=== PATIENT | female | born 1965 | race Caucasian/White ===

== ENCOUNTER 2018-06-29 07:00 | Outpatient (RCR) | payer BC, SELFPAY ==
--- NOTE | 2018-06-01 08:18 | HP.PTEVAL ---
Patient's Visit Information ELENA CORONEL is a 53 year old F referred to Physical Therapy by Mahamed Currie with a diagnosis of UNILATERAL KNEE OSTEOARTHRITIS. Date of Evaluation: 06/01/18 Physical Therapist: Rob Hanley PT, - Visit Plan Frequency: 2x /Week Duration: 4 Weeks Plan: ROM/flexablity,PRE'S quads/hams/hip,bike /nustep,modalities pain /edema - Subjective Findings: This 53 y/o female presents to physical therapy with right knee pain from osteorthritis. Patient has had right knee pain for progressively worse for 3 months. Patient intially seen DR Forrest who referred to othropedics. Did x-rays and MRI showed stage 3 DJD . Tried 2 injctions for pain didn't work.Location grossly anterior knee. Patient stateswith walking knee willem. Patient is knee replacemnet. Patient symptoms worse with walking,standing ,unable to squat,kneel,stairs.Denies parathesia/tingling.Symptoms described as throbbing ache. Patient symptoms better on the move ,rest ,ice. Patient symptoms affects QOL and job demands. SOCIAL: engaged. VOCACTION: assemble - Pain Right Knee Pain Intensity (Out of 10): 8 Pain Intensity Range: 10 - Objective POSTURE: knee valgus right. GAIT: normal abhishek. PALAPTION: medial joint line. EDEMA: effusion knee. QUAD CONTraction: Fair. AROM: 0-123 supine knee flexion RIGHT. MMT: quad/knee 4-/5,hip abd/add 4-/5,ankle 4/5 - Special Tests R Knee Luann - Meniscus: Negative R Knee Valgus - MCL: Negative R Knee Varus - LCL: Negative R Knee Patellar Apprehension - PFS: Negative R Knee Patellar Grind - PFS: Negative - Goals Goal 1:: Patient to be Independant with HEP Goal Time Frame: 4-6 Weeks Goal 2:: Patient to decrease pain knee by 50% or greater to improve . Goal Time Frame: 4-6 Weeks Goal 3:: Patient to improve quad/hams strength 4/5 to improve gait. Goal Time Frame: 4-6 Weeks Goal 4:: Patient to improve AROM supine knee flexion 0-130 degrees to improve stairs. Goal Time Frame: 4-6 Weeks Goal 5:: Patient to improve LFES score by 5-10 points or greater to improve function Goal Time Frame: 4-6 Weeks - Rehabilitation Potential Physical Therapy Diagnosis: Patient has right knee DJD with decrease ROM,decrease strength ,gait ,stairs ,pain thus impairs job demnads and ADL'S Rehabilitation Potential: Good - Anticipated Interventions Patient/Client Instruction: Educate patient on: Condition, Plan of Care For the Purpose of:: To decrease pain, To increase ROM, To improve muscle performance and motor function, To increase tolerance to activity/condition/position, To improve performance and independence with ADL's, To improve health of tissue, To decrease soft tissue restriction, To increase flexibility/ROM, To improve ability to perform tasks related to life management Therapeutic Exercise to Include: Strength training, Flexibilty training, Passive ROM, Active ROM Comment: KNEE /HIP For the Purpose of:: To decrease pain, To increase ROM, To improve muscle performance and motor function, To increase tolerance to activity/condition/position, To improve ability of physical actions for home/community/work/leisure, To improve health of tissue, To decrease soft tissue restriction, To increase flexibility/ROM, To improve ability to perform tasks related to life management TENS: Yes IF ES: Yes Cryotherapy (ice pack, ice massage): Yes Thermo therapy (hot pack): Yes Ultrasound (thermal/non thermal): Yes Vasopneumatic device: Yes For the Purpose of:: To decrease pain, To decrease swelling/inflammation, To increase ROM, To improve nutrient delivery to tissue, To increase oxygenation perfusion, To improve health of tissue, To decrease soft tissue restriction Thank you for the opportunity to evaluate your patient. For Medicare and Medicare HMO plans, please review the plan of care and approve it. It will need to be FAXED BACK to us at [phone] for Medicare purposes. For Medicare only, by signing this I certify the plan of care. Please let me know if there are questions or concerns regarding this plan of care. Physician Signature: Date:
--- NOTE | 2018-06-29 07:27 | HP.PTDCSUM ---
HP - PT D/C Summary It has been my pleasure to treat ELENA CORONEL under orders from Mahamed Currie PA-C, for the diagnosis of UNILATERAL KNEE OSTEOARTHRITIS for a total of 6 visit(s). Discharge Date: 06/29/18 Please see the following information for a summary of their discharge status. - Subjective Subjective: Patient had last injections. Patient conts to have pain in knee with function - Pain Right Knee Pain Intensity (Out of 10): 7 - Overall Improvement % Improvement: 25 - Objective Objective/Function: POSTURE: mild knee valgus. GAIT: antalgic with stance. MMT: quads/hams 4-/5. AROM: 0-125 supine knee flexion right. STAIRS: one steps at a time - Goals Goal 1:: Patient to be Independant with HEP Goal Progress: Goal Met Goal 2:: Patient to decrease pain knee by 50% or greater to improve . Goal Progress: Goal Met Goal 3:: Patient to improve quad/hams strength 4/5 to improve gait. Goal Progress: Progressing Goal 4:: Patient to improve AROM supine knee flexion 0-130 degrees to improve stairs. Goal Progress: Progressing Goal 5:: Patient to improve LFES score by 5-10 points or greater to improve function Goal Progress: Goal Met - Plan Plan: D/C - D/C Information Discharge Comments: HEP If there are questions or concerns regarding this patient's physical therapy, please feel free to call me at [phone]. Thank you for the referral of this patient. Sincerely, Rob Hanley, PT, Cert MDT, OCS
== END 2018-06-29 19:00 | disposition home or self-care (01) ==
LOC: PT 07:00
PROVIDERS: Family Provider Family Medicine; PCP Family Medicine; Referring Provider Physician Assistant; Visit Provider Physician Assistant
DX: M17.11 Unilateral primary osteoarthritis, right knee (principal)
CPT/HCPCS: 97014; 97016; 97110; 97162; 97530; G0283

== ENCOUNTER 2019-01-19 08:25 | Emergency (ER) | payer OTHER, BC, SELFPAY ==
[2019-01-19 08:26] VITALS: BP 165/84; PULSE 69; RESP 16; TEMP 36.3; O2SAT 100; BMI 25.7
--- NOTE | 2019-01-19 08:56 | ED.VIS.UPPEX ---
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 She continued to work. She is been icing and using Tylenol but pain has worsened. She denies paresthesias. She is right-hand dominant. Past Medical History - Allergies and Home Meds Allergies/Adverse Reactions: Allergies No Known Allergies Allergy (Verified 11/14/14 04:42) Primary Care Physician: Gerard Forrets [Primary Care Provider] - Prior records reviewed: Yes Past Medical History: - - Reviewed Surgical History: - - Ankle Smoking Status: Current every day smoker Review of Systems General: Denies: Chills, Fever Eyes: Denies: Visual changes - left, Visual changes - right ENT: Denies: Bilateral ear pain Cardiovascular: Denies: Chest pain Respiratory: Denies: Dyspnea, Cough Gastrointestinal: Denies: Abdominal pain Genitourinary: Denies: Dysuria Musculoskeletal: Reports: Arthralgias. Denies: Neck pain, Back pain Neurological: Denies: Headache, Weakness, Parasthesia Endocrine: Denies: Polyuria, Polydipsia Hematologic: Denies: Easy bruising Allergy: Denies: Uticaria Physical Exam Vital Signs/Narrative: Vital Signs Temp Pulse Resp BP Pulse Ox 01/19/19 08:26 97.4 F L 69 16 165/84 H 100 Inital Vital Signs reviewed: Yes Left Shoulder: - - Focal tenderness to palpation along the anterior left humeral head. This is near the site of the biceps tendon insertion. She does have good range of motion, but pain with movement. She has strong distal pulses and normal sensation.. Negative for: Abrasion, Contusion, Deformity Left Elbow: Negative for: Abrasion, Contusion Left Forearm: Negative for: Abrasion, Contusion Left Wrist: Negative for: Abrasion, Contusion General: Well nourished Head: Normocephalic ENT: No Trauma Neck: Nontender Cardiovascular: Regular rate, Regular rhythm Respiratory: No distress, CTA bilaterally Abdomen: Soft, Nontender Skin: Normal color Neurological: Alert, Oriented x3 Psychological: Normal affect Diagnostic/Tx/Re-eval Impressions Shoulder X-Ray 01/19/19 09:04 IMPRESSION: No demonstrated acute fracture or dislocation. Electronically Signed: Ajit Bell MD at 9:21 EDT Tel , Service support , 01/19/19 09:04 Shoulder min 2 Views [RAD] Stat - Medical Decision Making X-rays are unremarkable. I discussed with the patient that I am concerned about tendinitis with her repeat repetitive motion. She will be started on naproxen with a short steroid burst. She will follow-up with [facility]. Disposition: Home ED Disposition - Plan for ED Patient: Disposition: Home or Assisted Living Instructions: Shoulder Sprain Prescriptions: Prednisone [Deltasone] 40 mg PO DAILY #10 tablet Naproxen [Naprosyn] 500 mg PO BID PRN PRN #20 tablet PRN Reason: Pain [facility]errals: [facility]YSICIANS] - 3-5 Days
--- NOTE | 2019-01-19 09:04 | RAD_ITS ---
STUDY: X-RAY - LEFT SHOULDER REASON FOR EXAM: Female, 53 years old. Injury. TECHNIQUE: 4 view(s) of the shoulder. COMPARISON: None. FINDINGS: Normal glenohumeral articulation. Normal acromioclavicular joint. Normal acromion. There is a small sclerotic lesion in the left humeral head probably due to bone island. The soft tissue structures are unremarkable. Normal visualized pulmonary apex. RAD/Shoulder min 2 Views IMPRESSION: No demonstrated acute fracture or dislocation. Electronically Signed: Ajit Bell MD at 9:21 EDT Tel , Service support ,
== END 2019-01-19 10:22 | disposition home or self-care (01) ==
PROVIDERS: Emergency Provider Emergency Medicine; Family Provider Family Medicine; PCP Family Medicine
DX: S43.402A Unspecified sprain of left shoulder joint, initial encounter (principal); F17.200 Nicotine dependence, unspecified, uncomplicated; X50.0XXA Overexertion from strenuous movement or load, initial encounter; Y93.89 Activity, other specified; Y92.89 Other specified places as the place of occurrence of the external cause; Y99.0 Civilian activity done for income or pay
CPT/HCPCS: 73030; 99282

== ENCOUNTER → 2023-05-19 | Outpatient (CLI) | payer OTHER, SELFPAY ==
--- NOTE | 2023-05-19 | IMM_PTH ---
PATIENT: ELENA GUZMAN LOC: LAB U#:[id number] AGE/SX: 58/F ROOM: RE05/19/[address]: Dr. Benton Royal MD : 1965 BED: DIS: 05/19/2023 SPEC #: [id number] RECD: 05/22/23 15:44 STATUS: [place] REQ #: [id number] PANCHO: 05/19/23 00:[address]: Benton Royal DEPT: IMMUNOHISTOCHEMISTRY RECD BY: Beryl Mas ENTERED: 05/22/23 15:46 SP TYPE: IMMUNO OTHR DR: Dr. Gerard Forrest MD Tissues: Neck, NOS Procedures: Synapto (add) NAPSIN A (add) CD45 (add) CD56 (add) CEA (add) CHROMO (add) CK20 (add) CK7 (add) FILOMENA (add) KI-67 (add) MAMM (add) P53 (add) TX (add) TTF1 (add) GATA3 (add) P40 (add) PAX8 (add) ER (initial) NSE (add) S-100 (add) PHYSICIAN & INSTITUTION [place] [id number] SPECIMEN INFORMATION: Tissue Source: Right neck mass Clinical Info: Right neck mass Specimen Number: [id number] CPT code: 46355, 73371 x19 METHODOLOGY: Deparaffinized sections of prefer/formalin-fixed tissue or PAP/DQ stained slides are incubated with monoclonal/polyclonal antibodies/oligonucleotide probes. Localization is made via biotin free immunoperoxidase method. Appropriate controls are performed and reacted as expected. Results on target cell population are indicated in the following table: RESULTS: ANTIBODY / CLONE RESULT ER (6F11) negative TX (1E2) negative Mammaglobin (31A5) negative GATA3 (L50-823) negative CK7 (OV-TL12/30) positive CK20 (KS20.8) negative CD45 (RP2/18) negative S-100 (4C4.9) negative PAX8 (MRQ50) negative CD56 (123C3.D5) positive Chromo (LK2H10) positive Synapto (polyclonal) positive NSE Neuron Specific Enolase positive TTF-1 (8G7G3/1) positive Napsin A (Rabbit Polyclonal) negative P40 (BC28) negative FILOMENA (E29) positive CEA (11-7/TF-3HB-1) negative P53 (DO-7) negative, null pattern Ki-67 (30-9) positive, 60% These tests were developed and their performance characteristics determined by [facility]. They may not have been cleared or approved by the U.S. Food and Drug Administration. The FDA has determined that such clearance or approval is not necessary. The above immunohistochemical/dualISH markers are ordered and reviewed by the Pathologist. INTERPRETATION: Right neck mass, fine needle aspiration: Metastatic small cell carcinoma. AM:bri 05/23/2023
--- NOTE | 2023-05-19 | ASPOS_PTH ---
PATIENT: ELENA GUZMAN LOC: LAB U#:[id number] AGE/SX: 58/F ROOM: RE05/19/[address]: Dr. Benton Royal MD : 1965 BED: DIS: 05/19/2023 SPEC #: [id number] RECD: 05/19/23 10:50 STATUS: [place] RERohit #: [id number] PANCHO: 05/19/23 00:[address]: Benton Royal DEPT: CYTOLOGY RECD BY: Junaid Nuñez ENTERED: 05/19/23 10:51 SP TYPE: ASP HERE OTHR DR: Dr. Gerard Forrest MD Tissues: Neck, NOS Procedures: Surgery Specimen Level IV Cytology Other Fine Needle Asp on Site HEADER OPERATION: Fine needle aspiration right neck mass PRE-OP DIAGNOSIS: Right neck mass TISSUE SUBMITTED: Right neck mass DIAGNOSIS CYTOLOGY Fine needle aspiration, right neck mass (smears and cell block): Positive for malignant cells. Note: Immunohistochemistry([id number]) is consistent with a metastatic small cell carcinoma. See comment. AM:bri 05/22/2023 COMMENT A fine needle aspiration was performed and the specimen is evaluated at the time of FNA by Dr. Fuchs. Immediate Evaluation = Positive for malignant cells. Small blue cell neoplasm, favor small cell carcinoma. Flow cytometry analysis from [facility] was cancelled. The full report is viewable in EMR. CYTOLOGY STUDY Slides are reviewed. CYTOLOGY GROSS Received is 0.2 ml of reddish fluid labeled with the patient's name, and designated right neck mass. Four imprints and four paps are made from the submitted fluid and the rest is added to CytoLyt for cell block preparation. Submitted for cytology study. / AM:bri 05/19/2023 TC:0 CPT: 23214, 97255, 67162, 61929
== END | disposition home or self-care (01) ==
LOC: LAB 09:26
PROVIDERS: PCP Family Medicine; Referring Provider Otolaryngology; Visit Provider Otolaryngology
DX: C44.49 Other specified malignant neoplasm of skin of scalp and neck (principal)
CPT/HCPCS: 10021; 88161; 88305; 88341; 88342

== ENCOUNTER 2023-08-18 08:52 | Outpatient (CLI) | payer OTHER, SELFPAY ==
[2023-08-18 09:13] VITALS: BP 107/53; PULSE 92; RESP 16; TEMP 36.4; O2SAT 100; BMI 29.0
[2023-08-18] MEDS: 0.9% Normal Saline (500mL Bag) 500 ML 15 ML IV (09:45)
[2023-08-18] MEDS: 0.9% NaCl Peripheral Flush Adult/Peds IV (09:46)
[2023-08-18 10:08] VITALS: BP 90/58; PULSE 88; RESP 16; TEMP 36.4; O2SAT 100
[2023-08-18 11:08] VITALS: BP 115/52; PULSE 92; RESP 16; TEMP 36.3
[2023-08-18 12:07] VITALS: BP 107/60; PULSE 88; RESP 16; TEMP 36.5; O2SAT 100
== END 2023-08-18 08:53 | disposition home or self-care (01) ==
LOC: MEDOUTP 08:56
PROVIDERS: PCP Family Medicine; Referring Provider Internal Medicine Hematology & Oncology; Visit Provider Internal Medicine Hematology & Oncology
DX: D64.81 Anemia due to antineoplastic chemotherapy (principal)
CPT/HCPCS: 36430; 86850; 86900; 86901; 86920; 86922; J7040; P9016; A4216

== ENCOUNTER 2023-12-13 17:10 | Emergency (ER) | payer OTHER, SELFPAY ==
[2023-12-13 17:11] VITALS: BP 158/84; PULSE 98; RESP 16; TEMP 36.9; O2SAT 95; BMI 31.5
--- NOTE | 2023-12-13 17:28 | EX.ED.DYSGE1 ---
HPI History of Present Illness Chief Complaint: Chest Other Onset/Context/Timing Onset: Days (2) Context: Gradual Onset Timing: Continuous Quality: Sharp Location: Right chest Worsened by: Deep breathing Relieved by: Nothing Narrative Narrative: Patient presents with right-sided chest pain that has been constant for the past 2 days. Patient was referred to the emergency department by her oncologist for possible pulmonary embolism. Patient has a history of small cell lung cancer and lymphoma. Patient states her pain is sharp. Patient states it is worse with deep breathing. Patient denies any fevers or chills. Patient denies any cough. Patient admits to some mild shortness of breath. Patient denies any nausea or vomiting. [facility] Medical History (Updated 12/13/23 @ 20:[address] Greg Torres DO) COPD (chronic obstructive pulmonary disease) Lymphoma Small cell lung cancer Home Medications ?Medication ?Instructions ?Recorded ?Last Taken ?Type cyclobenzaprine 10 mg tablet 10 mg PO TID PRN Muscle Spasm ##20 11/14/14 Unknown Rx dexamethasone 4 mg tablet 4 mg PO DAILY 08/18/23 Unknown History diphenhydramine HCl 12.5 mg/5 mL 12.5 mg PO TID 08/18/23 Unknown History oral liquid (Allergy (diphenhydramine)) olanzapine 5 mg tablet 5 mg PO DAILY 08/18/23 Unknown History ondansetron 8 mg disintegrating 8 mg PO Q8H 08/18/23 Unknown History tablet prochlorperazine maleate 10 mg 10 mg PO BID PRN nausea and 08/18/23 Unknown History tablet (Compazine) vomiting sucralfate 100 mg/mL oral 10 ml PO Q6H 08/18/23 Unknown History suspension (Carafate) azithromycin 250 mg tablet 250 mg PO DAILY #4 TABLETS 12/13/23 Unknown Rx Allergy/AdvReac Type Severity Reaction Status Date / Time No Known Allergies Allergy Verified 12/13/23 17:12 Surgical History Hx of neck surgery History of ankle surgery History of hysterectomy History of herniorrhaphy Hx of right knee surgery History of section Social History (Updated 12/13/23 @ 17:[address] Greg Torres DO) Smoking Status: Former smoker ROS ROS ED Constitutional Constitutional ED: Denies chills or fever(s) Eyes Eyes: Denies blurry vision or change in vision ENT ENT ED: Denies rhinorrhea or sore throat Cardiovascular Cardiovascular: Reports chest pain; Denies palpitations Respiratory/Chest Respiratory/Chest: Reports dyspnea; Denies cough Gastrointestinal Gastrointestinal: Denies nausea or vomiting Genitourinary Genitourinary ED: Denies dysuria or hematuria Musculoskeletal Musculoskeletal: Denies back pain or neck pain Integumentary Reports rash; Denies abscess Neurologic Neurologic: Denies headache(s) or weakness Allergic/Immunologic Allergic/Immunologic ED: Denies mouth swelling or urticaria EXAM Physical Exam Const Vital Signs: 12/13/23 17:11 12/13/23 17:35 12/13/23 19:10 Temperature 98.4 F Temperature Source Temporal Pulse Rate 98 74 Respiratory Rate 16 18 Respiratory Effort Normal Respiratory Pattern Normal Blood Pressure 158/84 H 129/77 H Blood Pressure Mean 108 94 Pulse Ox 95 96 Oxygen Delivery Method Room Air Room Air Positive well nourished and well developed General Appearance ED: well developed and NAD HEENT Reports moist mucous membranes Neck supple and no JVD Resp normal respiratory effort and clear to auscultation bilaterally Cardio regular rate and regular rhythm GI non-tender and non-distended Palpation: soft Neuro oriented x3, CN's II-XII intact bilaterally and no sensory deficits noted Sensorium / Orientation: alert Motor Exam: strength 5/5 throughout Psych mental status grossly normal MDM MDM MDM Narrative Medical decision making narrative: Differential diagnosis includes pulmonary embolism, pneumothorax, musculoskeletal pain, and pneumonia. CBC will be obtained to assess for leukocytosis and anemia. Basic metabolic profile will be obtained to assess for electrolyte abnormality and renal function. CTA of the chest will be obtained to assess for pulmonary embolism. Lab Data Attestation: I reviewed the patient's lab results. Lab results narrative: CBC was reviewed. There is a slight anemia with a hemoglobin of 11.1 and hematocrit of 33.7. Basic metabolic profile was reviewed. BUN was slightly elevated at 28 and creatinine was slightly elevated at 1.25. Labs: Laboratory Results - last 24 hr 12/13/23 17:45 WBC 5.3 RBC 3.61 L Hgb 11.1 L Hct 33.7 L MCV 93.4 MCH 30.7 MCHC 32.9 RDW Std Deviation 38.4 RDW Coeff of Robert 11.4 L Plt Count 231 MPV 9.4 Immature Gran % (Auto) 0.200 Neut % (Auto) 68.2 Lymph % (Auto) 17.0 L Charlton % (Auto) 9.7 Eos % (Auto) 4.0 Baso % (Auto) 0.9 Absolute Neuts (auto) 3.6 Absolute Lymphs (auto) 0.90 Nucleated RBC % 0 Sodium 140 Potassium 4.1 Chloride 109 H Carbon Dioxide 24.0 Anion Gap 7 BUN 28 H Creatinine 1.25 H Estim Creat Clear Calc 49.36 Est GFR (MDRD) Af Amer 56 L Est GFR (MDRD) Non-Af 47 L BUN/Creatinine Ratio 22.4 H Glucose 102 Calcium 9.5 Radiography CTA PE Study: No Evidence of PE and No Evidence of Dissection Diagnostic Testing: Clinical Impression(s) from Imaging Studies Chest CTA 12/13/23 17:36 IMPRESSION: CTA chest examination, without a demonstrated pulmonary embolism or arterial dissection. Emphysema with right upper lung interstitial infiltrate or edema. Electronically Signed: Nabor Khanna MD at 18:42 EDT , CTA of the chest was obtained. There is no pulmonary embolism or aortic dissection. There is a questionable right upper lobe infiltrate or edema. This was interpreted by the radiologist and was also independently reviewed by myself. Treatment and Re-Evaluation :: Patient was advised of her findings. Because of the CTA findings of a questionable infiltrate, patient was given a dose of Zithromax here. Patient was given a prescription for Zithromax. Patient was instructed to take Tylenol or ibuprofen as needed for pain. Patient was instructed to follow-up with her primary care physician in 5 to 7 days. Patient understood and was agreeable with the plan. All questions were answered. Discharge Plan Triage Chief Complaint: Chest Other ED Provider: Greg Torres Dx/Rx/DC Orders Clinical Impression: Right-sided chest pain, Small cell lung cancer, COPD (chronic obstructive pulmonary disease), Pneumonia Instructions: ED Chest Pain, Uncertain Cause, ED Pneumonia (Adult) Prescriptions: New azithromycin 250 mg tablet 250 mg PO DAILY Qty: 4 0RF No Action cyclobenzaprine 10 MG tablet 10 mg PO TID PRN (Reason: Muscle Spasm) Qty: 20 0RF olanzapine 5 mg tablet 5 mg PO DAILY diphenhydramine HCl [Allergy (diphenhydramine)] 12.5 mg/5 mL liquid 12.5 mg PO TID sucralfate [Carafate] 100 mg/mL suspension 10 ml PO Q6H dexamethasone 4 mg tablet 4 mg PO DAILY prochlorperazine maleate [Compazine] 10 mg tablet 10 mg PO BID PRN (Reason: nausea and vomiting) ondansetron 8 mg tablet,disintegrating 8 mg PO Q8H Rx Instructions: 1st dose 1-2 hr before radiation Primary Care Provider: Gerard Forrest Referrals: Saul East DO [Med Staff - Active Staff] - 5-7 Days Gerard Forrest MD [Primary Care Provider] - 5-7 Days Print Language: Bulgarian Disposition Disposition: Home, Self Care
--- NOTE | 2023-12-13 17:36 | CT_ITS ---
STUDY: CTA CHEST REASON FOR EXAM: Female, 58 years old. Right chest pain RADIATION DOSAGE (If Supplied By Facility): CTDIvol = ( 10.26 ) mGy, DLP = ( 385.06 ) mGycm TECHNIQUE: The examination was performed with the intravenous administration of IV 100mL Isovue-370. Post-processing of the angiographic images was performed, with multiplanar reformation and 3D reconstruction. Individualized dose optimization techniques were used for this CT. COMPARISON: Chest x-ray October 16, 2022 FINDINGS: Normal enhancement of the main pulmonary artery and right and left pulmonary arteries. Normal enhancement of the bilateral peripheral pulmonary arteries. There is no demonstrated pulmonary embolism. There is atherosclerotic calcification of the aortic arch with tortuosity. There is no demonstrated aortic dissection. Normal heart and pericardium. Normal mediastinum. Normal hilar regions. Normal visualized trachea and bronchi. The lungs are well expanded. There is emphysema of the lungs. There are right upper lung interstitial septal and groundglass opacities Normal pleura. Normal chest wall structures. There are degenerative changes of thoracic spine. Normal visualized upper abdomen. CT/CTA Chest W/WO Contrast IMPRESSION: CTA chest examination, without a demonstrated pulmonary embolism or arterial dissection. Emphysema with right upper lung interstitial infiltrate or edema. Electronically Signed: Nabor Khanna MD at 18:42 EDT ,
[2023-12-13 17:58] LABS: Absolute Neutrophil Count 3.6 X10^3/uL (2.0-7.7); Basophil# 0.05 X10^3/uL; Basophil% 0.9 % (0-1); Eosinophil# 0.21 X10^3/uL; Hematocrit 33.7 % (37-47); Hemoglobin 11.1 g/dL (12.0-15.0); Mean Corp Hgb Conc 32.9 g/dL (32-36); Mean Corpuscular Hgb 30.7 pg (27.0-32.0); Mean Corpuscular Volume 93.4 fL (81-99); Mean Platelet Vol. 9.4 fl (6.2-12.0); Monocyte# 0.51 X10^3/uL; Monocyte% 9.7 % (0-10); NRBC Flagged by Analyzer 0 % (0-5); Neutrophil % 68.2 % (47-70); Platelet Count 231 K/mm3 (150-450); RBC Distribution Width CV 11.4 % (11.6-14.6); RBC Distribution Width SD 38.4 fl (35.1-43.9); Red Blood Count 3.61 M/mm3 (4.2-5.4); White Blood Count 5.3 K/mm3 (4.4-11.0)
[2023-12-13 18:11] LABS: Anion Gap 7 (5-15); BUN 28 mg/dL (7-18); BUN/Creat Ratio 22.4 RATIO (10-20); Calcium,Total 9.5 mg/dL (8.5-10.1); Chloride 109 mmol/L (98-107); Creatinine, Serum 1.25 mg/dL (0.55-1.02); EST Glomerular Filtration Rate 47 mL/min (>60); Est Glom Filt Rate - Afr Amer 56 mL/min (>60); Estimated Creatinine Clearance 49.36 ml/min; Glucose 102 mg/dL (74-106); Potassium 4.1 mmol/L (3.5-5.1); Sodium Level 140 mmol/L (136-145)
[2023-12-13 19:10] VITALS: BP 129/77; PULSE 74; RESP 18; O2SAT 96
[2023-12-13 20:37] VITALS: BP 150/87; PULSE 72; RESP 12; TEMP 36.8; O2SAT 95
[2023-12-13] MEDS: Azithromycin 250 MG Tablet 500 MG PO (20:42)
== END 2023-12-13 20:43 | disposition home or self-care (01) ==
PROVIDERS: Emergency Provider Emergency Medicine; PCP Family Medicine; Visit Provider Emergency Medicine
DX: R07.89 Other chest pain (principal); C34.90 Malignant neoplasm of unspecified part of unspecified bronchus or lung; J44.9 Chronic obstructive pulmonary disease, unspecified; J18.9 Pneumonia, unspecified organism; Z87.891 Personal history of nicotine dependence; Z85.72 Personal history of non-Hodgkin lymphomas
CPT/HCPCS: 71275; 80048; 85025; 99283; Q9967

== ENCOUNTER 2024-03-05 17:50 | Emergency (ER) | payer OTHER, SELFPAY ==
[2024-03-05] VITALS (9 sets, daily range): BP systolic 83–129; BP diastolic 56–76; PULSE 64–118; RESP 12–20; TEMP 36.7; O2SAT 95–99; BMI 30.4
--- NOTE | 2024-03-05 18:04 | EX.ED.DYSGE1 ---
HPI History of Present Illness Chief Complaint: Hypotension PFSH PFS Medical History (Updated 03/05/24 @ 22:[address] Jamal Cox, DO) COPD (chronic obstructive pulmonary disease) Lymphoma Small cell lung cancer Home Medications ?Medication ?Instructions ?Recorded ?Last Taken ?Type olanzapine 5 mg tablet 5 mg PO DAILY 08/18/23 Unknown History ondansetron 8 mg disintegrating 8 mg PO Q8H 08/18/23 Unknown History tablet prochlorperazine maleate 10 mg 10 mg PO BID PRN nausea and 08/18/23 Unknown History tablet (Compazine) vomiting cholecalciferol (vitamin D3) 50 50 mcg PO DAILY 03/05/24 Unknown History mcg (2,000 unit) capsule (Vitamin D3) metoprolol succinate 25 mg 25 mg PO DAILY 03/05/24 Unknown History tablet,extended release 24 hr nitrofurantoin macrocrystal 100 mg 100 mg PO BID 7 days #14 caps 03/05/24 Unknown Rx capsule ondansetron 4 mg disintegrating 4 mg PO Q8H PRN PRN Nausea #10 tabs 03/05/24 Unknown Rx tablet Allergy/AdvReac Type Severity Reaction Status Date / Time No Known Allergies Allergy Verified 12/13/23 17:12 Family History (Updated 03/05/24 @ 18:26 by Liz Reyes) Father Myocardial infarction Surgical History Hx of neck surgery History of ankle surgery History of hysterectomy History of herniorrhaphy Hx of right knee surgery History of section Social History (Updated 12/13/23 @ 17:[address] Greg Torres DO) Smoking Status: Former smoker EXAM Physical Exam Const Vital Signs: 03/05/24 17:51 03/05/24 18:13 03/05/24 18:13 Temperature 98.0 F Temperature Source Temporal Pulse Rate 118 H Respiratory Rate 16 16 Respiratory Effort Respiratory Pattern Blood Pressure 83/61 L Blood Pressure Mean 68 Pulse Ox 99 96 Oxygen Delivery Method Room Air Room Air Room Air 03/05/24 18:13 03/05/24 18:51 03/05/24 19:00 Temperature Temperature Source Pulse Rate 71 72 Respiratory Rate 18 18 Respiratory Effort Normal Non-Labored Respiratory Pattern Normal Blood Pressure 103/56 L 106/56 L Blood Pressure Mean 71 72 Pulse Ox 99 99 Oxygen Delivery Method Room Air 03/05/24 20:00 03/05/24 21:00 03/05/24 22:00 Temperature Temperature Source Pulse Rate 69 77 71 Respiratory Rate 17 18 20 H Respiratory Effort Respiratory Pattern Blood Pressure 129/71 H 124/62 H 126/71 H Blood Pressure Mean 90 82 89 Pulse Ox 98 98 95 Oxygen Delivery Method Room Air 03/05/24 22:58 03/05/24 23:00 Temperature 98.1 F Temperature Source Pulse Rate 64 73 Respiratory Rate 12 12 Respiratory Effort Respiratory Pattern Blood Pressure 126/76 H 126/76 H Blood Pressure Mean 92 92 Pulse Ox 98 98 Oxygen Delivery Method Room Air MDM MDM MDM Narrative Medical decision making narrative: HISTORY OF PRESENT ILLNESS: 59-year-old female with hypotension back pain. She has chronic back pain for last 3 days but which is worse today. This is left-sided. She notes no falls. No trauma. Denies bowel or bladder incontinence. Denies focal lower extremity weakness. Denies history of recent surgery or bladder manipulation. Patient denies any saddle anesthesia, urinary retention, bowel or bladder incontinence, lower extremity weakness, fever or IV drug use, no recent spinal manipulation or surgery, no recent urinary catheterization. She endorses chronic shortness of breath. REVIEW OF SYSTEMS: Pertinent positives: Back pain, low blood pressure, dyspnea Pertinent negatives: Chest pain, headache, bleeding diathesis PHYSICAL EXAM: Nursing triage notes reviewed, Vital signs reviewed Constitutional: please see mdm HENT: MMM Eyes: Pupils equal round and reactive to light, Extraocular muscles intact Neck: No stridor, no JVD, full neck ROM Lungs: Clear to auscultation, No wheezing or rales. No increased work of breathing, no conversational dyspnea, no accessory muscle use, no nasal flaring. No respiratory distress noted Heart: Regular rate and rhythm, No murmurs, No rubs and No gallops, 2+ distal pulses (radial, femoral, posterior tibial) in all extremities Abdomen: Soft, there is no tenderness, rigidity, rebound or guarding, no obvious peritoneal signs, no palpable pulsatile abdominal masses, no auscultated abdominal bruit : No CVAT Extremities: No edema Neuro: No focal neurological deficits, cranial nerves II through XII intact, 5/5 strength in all extremities. Intact sensation to light touch in all extremities, 2+ reflexes bilateral patella tendons. Normal gait. No ataxia. Skin: No rash or lesions noted MEDICAL DECISION MAKING: Chief Complaint: Hypotension and dizziness External records reviewed: Imaging reviewed: Recent [facility] abdomen pelvis. CT scan of the chest with contrast shows no PE or dissection emesis from December 2023 Factors affecting care: Small cell lung cancer, lymphoma, COPD Social determinants of health: none History obtained from others: Family Consults: none MDM Narrative: Patient was initially hypotensive with blood pressure 80/61 and tachycardic with a heart rate of 118, afebrile and nontoxic-appearing. No focal findings suggestive of infection. No focal cardiopulmonary abnormalities on initial exam. I considered the following differential diagnosis: Distributive shock, obstructive shock, hemorrhagic shock, neurogenic shock ALL IMAGES (IF OBTAINED) HAVE BEEN PERSONALLY REVIEWED AND INTERPRETED BY MYSELF. EKG with normal sinus rhythm, normal axis, normal intervals, no STEMI Lactate is wnl indicating no end-organ hypoperfusion and/or hypoxia. CBC with no leukocytosis, noted mild anemia, no thrombocytopenia BMP without evidence of significant electrolyte abnormalities, no anion gap, no acute kidney injury. High-sensitivity troponin is negative, no evidence of myocardial ischemia BNP within normal limits Urinalysis shows evidence of urinary inflammation. Will send for culture (given cancer and relative immunocompromise state). Will start the patient prophylactic antibiotic I have personally reviewed the patient's chest x-ray. Chest x-ray is unremarkable for pulmonary edema, pneumothorax, pneumonia or focal cardiopulmonary abnormality. CT of the chest shows no evidence of PE or pneumonia CT scan abdomen pelvis no evidence of abdominal extravasation of AAA, shows evidence of cystitis CT scan lumbar spine shows no evidence of bony abnormality, bony metastasis On reevaluation the patient's blood pressure improved 124/62, heart rate improved to 77. Symptomatically she felt better. The synthesis the patient's history, physical exam, labs images suggest Likely dehydration with accompanying UTI. I sent the urine for culture. Will have the patient follow with her culture callback process. There is no evidence of urosepsis as patient did not have an elevated white blood cell count, lactate is negative and symptoms and vital signs are manage improved with IV fluids. Encourage increase IV fluid intake, gave nitrofurantoin for empiric UTI coverage. Give strict return precautions and follow-up instructions. The patient and/or family, caregivers express understanding. The patient and/or family, caregivers agrees with the plan. Shared decision making: I will have a discussion with the patient and or visitors regarding risk/benefits of further testing or admission. They will be made aware of of the risk/benefits inherent in this decision they will be given the opportunity to voice understanding. Total critical care time today provided was at least 0 review and charting minutes. This excludes separately billable procedures. Critical care time (if documented) is secondary to the patient having high probability of clinically significant/life threatening deterioration in the patient's condition which required my urgent intervention. Impression: 1. Hypotension (resolved) 2. History of small cell lung cancer 3. Dehydration Dispo: Discharge home This note was generated with [employer] dictation software. It may contain incorrect words, spelling, and punctuation that were not noted in review of the chart prior to signing. Lab Data Labs: Laboratory Results - last 24 hr 03/05/24 03/05/24 03/05/24 18:22 19:40 20:02 WBC 6.2 RBC 3.48 L Hgb 10.5 L Hct 32.5 L MCV 93.4 MCH 30.2 MCHC 32.3 RDW Std Deviation 44.3 H RDW Coeff of Robert 13.0 Plt Count 252 MPV 10.4 Sodium 139 Potassium 4.1 Chloride 108 H Carbon Dioxide 23.0 Anion Gap 8 BUN 26 H Creatinine 1.45 H Estim Creat Clear Calc 41.33 Est GFR (MDRD) Af Amer 48 L Est GFR (MDRD) Non-Af 39 L BUN/Creatinine Ratio 17.9 Glucose 101 Lactic Acid 0.3 L Calcium 9.5 Total Bilirubin 0.20 AST 19 ALT 23 Alkaline Phosphatase 62 Troponin I High Sens 16 B-Natriuretic Peptide 35.9 Total Protein 7.6 Albumin 3.9 Globulin 3.7 Albumin/Globulin Ratio 1.1 Urine Color Yellow Urine Clarity Clear Urine pH 6.0 Ur Specific [place] 1.020 Urine Protein Negative Urine Glucose (UA) Normal Urine Ketones Negative Urine Occult Blood 25 H Urine Nitrite Negative Urine Bilirubin Negative Urine Urobilinogen Normal Ur Leukocyte Esterase 100 H Urine RBC 0-5 SEEN Urine WBC 0-5 SEEN Ur Squamous Epith Cells 0-5 SEEN Ur Renal Epithelial Cell 0-5 SEEN Urine Bacteria 2+ Hyaline Casts 0-5 SEEN Urine Mucus 0 SEEN Radiography Diagnostic Testing: Clinical Impression(s) from Imaging Studies Abdomen/Pelvis CT 03/05/24 19:17 IMPRESSION: Findings suspicious for cystitis. Correlate with urinalysis. Electronically Signed: Benton Laura MD at 21:23 EDT , Chest CTA 03/05/24 19:17 IMPRESSION: No acute abnormalities in the chest. Specifically, no evidence of acute pulmonary emboli to the segmental level. Electronically Signed: Benton Laura MD at 21:21 EDT , Lumbar Spine CT 03/05/24 19:17 IMPRESSION: No evidence of acute lumbar spinal fracture or spondylolisthesis. Mild multilevel degenerative disc disease and spondylosis. Electronically Signed: Benton Laura MD at 21:26 EDT , Chest X-Ray 03/05/24 19:25 IMPRESSION: No acute radiographic abnormalities. Electronically Signed: Benton Laura MD at 20:41 EDT Reading Location ID and State: [email or web address] / [place] Tel , Service support , Discharge Plan Triage Chief Complaint: Hypotension Other Complaint: Back ED Provider: Jamal Cox Dx/Rx/DC Orders Clinical Impression: Acute dehydration Instructions: Dehydration Prescriptions: New nitrofurantoin macrocrystal 100 mg capsule 100 mg PO BID 7 Days Qty: 14 0RF Rx Instructions: must administer with a meal/food ondansetron 4 mg tablet,disintegrating 4 mg PO Q8H PRN PRN (Reason: Nausea) Qty: 10 0RF No Action olanzapine 5 mg tablet 5 mg PO DAILY Patient Comments: hasn't taken since tx prochlorperazine maleate [Compazine] 10 mg tablet 10 mg PO BID PRN (Reason: nausea and vomiting) Patient Comments: hasn't taken since tx ondansetron 8 mg tablet,disintegrating 8 mg PO Q8H Patient Comments: hasn't taken since tx Rx Instructions: 1st dose 1-2 hr before radiation metoprolol succinate 25 mg tablet extended release 24 hr 25 mg PO DAILY cholecalciferol (vitamin D3) [Vitamin D3] 50 mcg (2,000 unit) capsule 50 mcg PO DAILY Primary Care Provider: Gerard Forrest Referrals: Gerard Forrest MD [Primary Care Provider] - Activity Restrictions/Additional Instructions: Thank you for trusting us with your care today! Your labs images were reassuring overall. Your vital sign abnormalities improved after IV fluids were suggest dehydration. I wrote you prescription for an antibiotic to treat presumed UTI given signs of urinary inflammation as well as signs of inflammation in your CT scan. Please take Zofran as needed for nausea and vomiting at home. Please take Tylenol (2 pills, 650 mg), ibuprofen (2 pills, 400 mg) every 6 hours as needed for pain and fever control. Please return to the emergency department if your symptoms change or worsen. Please follow with your primary care physician for further outpatient evaluation and management. Print Language: Czech Disposition Disposition: Home, Self Care Discharge Date/Time: 03/05/24 23:05
[2024-03-05] MEDS: 0.9% Normal Saline (1000mL) 1,000 ML 50 ML IV (18:25)
--- NOTE | 2024-03-05 19:16 | EKG12_ITS ---
Test Reason : DYSRHYTHMIA Blood Pressure : / mmHG Vent. Rate : 061 BPM Atrial Rate : 061 BPM P-R Int : 164 ms QRS Dur : 072 ms QT Int : 396 ms P-R-T Axes : 069 069 048 degrees QTc Int : 398 ms Normal sinus rhythm Normal ECG Confirmed by LYNN WONG, RIC ([id number]), news video editor POLLY THRASHER ([id number]) on 03/07/2024 1:45:35 PM Referred By: Confirmed By:RIC BAILEY MD
--- NOTE | 2024-03-05 19:17 | CT_ITS ---
INDICATION: back pain EXAMINATION: CT LUMBAR SPINE - CT Spine Lumbar W/O Contrast Injection TECHNIQUE: Helically acquired images were obtained of the lumbar spine. 2D reformats were reviewed. A radiation dose optimization technique was used for this scan. IV Contrast dosage and agent: None. COMPARISON: None. FINDINGS: VERTEBRAE: No fracture or traumatic subluxation. No discrete lytic or blastic abnormality observed. Normal alignment. DISCS and SPINAL CANAL: Mild multilevel degenerative disc disease and spondylosis. No critical stenosis. VISUALIZED ABDOMEN: Refer to CT abdomen pelvis report same date. CT/Spine Lumbar without Contrast IMPRESSION: No evidence of acute lumbar spinal fracture or spondylolisthesis. Mild multilevel degenerative disc disease and spondylosis. Electronically Signed: Benton Laura MD at 21:26 EDT ,
--- NOTE | 2024-03-05 19:17 | CT_ITS ---
INDICATION: lower abdominal pain EXAMINATION: CT Abdomen And Pelvis W/O Contrast Injection TECHNIQUE: Helically acquired images were obtained of the abdomen and pelvis without the use of IV contrast. A radiation dose optimization technique was used for this scan. Oral contrast: None. COMPARISON: None FINDINGS: Evaluation of the solid organs and vascular structures is limited without intravenous contrast. Visualized lung bases: Unremarkable Liver: Unremarkable Gallbladder: Unremarkable Spleen: Unremarkable Pancreas: Unremarkable Adrenal Glands: Unremarkable Kidneys: Unremarkable Vasculature: Mild scattered aortoiliac atherosclerotic calcifications. GI Tract: Unremarkable Lymphadenopathy: None Peritoneum: No ascites. Bladder: Mild circumferential wall thickening with subtle surrounding inflammatory changes. Reproductive organs: Unremarkable Bones/Soft tissues: Mild scattered degenerative changes of the visualized spine. CT/Abdomen/Pelvis without Cont IMPRESSION: Findings suspicious for cystitis. Correlate with urinalysis. Electronically Signed: Benton Laura MD at 21:23 EDT ,
--- NOTE | 2024-03-05 19:17 | CT_ITS ---
INDICATION: hypotension, SOB r/o PE EXAMINATION: CTA Chest WO/W Contrast Injection TECHNIQUE: Helically acquired images were obtained of the chest following administration of IV contrast. A radiation dose optimization technique was used for this scan. 3D postprocessing images including MIPS were reviewed. IV Contrast dosage and agent: IV 100mL [id number] COMPARISON: None. FINDINGS: Lungs: Scattered subsegmental atelectasis. Lungs are otherwise clear. Mediastinum: The cardiomediastinal silhouette is not enlarged. No mediastinal, hilar or axillary adenopathy. Moderate aortic arch and coronary artery calcifications. No obvious filling defect seen within the visualized pulmonary arteries. Pleura: Unremarkable Bones/Soft tissues: No suspicious osseous or soft tissue lesions Upper abdomen: No visualized abnormalities in the upper abdomen. CT/CTA Chest W/WO Contrast IMPRESSION: No acute abnormalities in the chest. Specifically, no evidence of acute pulmonary emboli to the segmental level. Electronically Signed: Benton Laura MD at 21:21 EDT ,
[2024-03-05] MEDS: 0.9% Normal Saline (1000mL) 1,000 ML 1000 ML IV (19:24)
--- NOTE | 2024-03-05 19:25 | RAD_ITS ---
INDICATION: hypotension EXAMINATION/TECHNIQUE: X-RAY - XR Chest 1 View COMPARISON: 10/16/2012. FINDINGS: The lungs are clear. Tortuous and calcified thoracic aorta. The heart is not enlarged. No pleural effusion or pneumothorax. Degenerative changes of the thoracic spine. RAD/Chest 1 View (Portable) IMPRESSION: No acute radiographic abnormalities. Electronically Signed: Benton Laura MD at 20:41 EDT ,
[2024-03-05 19:39] LABS: Hematocrit 32.5 % (37-47); Hemoglobin 10.5 g/dL (12.0-15.0); Mean Corp Hgb Conc 32.3 g/dL (32-36); Mean Corpuscular Hgb 30.2 pg (27.0-32.0); Mean Corpuscular Volume 93.4 fL (81-99); Mean Platelet Vol. 10.4 fl (6.2-12.0); Platelet Count 252 K/mm3 (150-450); RBC Distribution Width SD 44.3 fl (35.1-43.9); Red Blood Count 3.48 M/mm3 (4.2-5.4); White Blood Count 6.2 K/mm3 (4.4-11.0)
[2024-03-05 20:09] LABS: Mucous, Urine 0 SEEN /hpf (<or=2+)
[2024-03-05 20:13] LABS: Color, Urine Yellow (Yellow); Glucose, Dipstick Normal (Normal); Ketone-Dipstick Negative (Negative); Leukocyte Esterase-Dipstick 100 /ul (Negative); Nitrite-Dipstick Negative (Negative); Occult Blood-Urine 25 /ul (Negative); Protein-Dipstick Negative (Negative); Urine Bilirubin Dipstick Negative (Negative); Urine Clarity Clear (Clear); Urine Urobilinogen Normal (Normal)
[2024-03-05 20:19] LABS: BNP,B-Type NATRIURETIC PEPTIDE 35.9 pg/mL (0-100)
[2024-03-05 20:21] LABS: ALB/GLOB Ratio 1.1 RATIO (0.9-2.4); AST(SGOT) 19 U/L (15-37); Alanine Aminotransfer ALT/SGPT 23 U/L (13-56); Albumin, Serum 3.9 g/dL (3.2-5.0); Alkaline Phosphatase 62 U/L (45-117); Anion Gap 8 (5-15); BUN 26 mg/dL (7-18); BUN/Creat Ratio 17.9 RATIO (10-20); Calcium,Total 9.5 mg/dL (8.5-10.1); Chloride 108 mmol/L (98-107); Creatinine, Serum 1.45 mg/dL (0.55-1.02); EST Glomerular Filtration Rate 39 mL/min (>60); Est Glom Filt Rate - Afr Amer 48 mL/min (>60); Estimated Creatinine Clearance 41.33 ml/min; Globulin 3.7 g/dL (2.2-4.2); Glucose 101 mg/dL (74-106); Potassium 4.1 mmol/L (3.5-5.1); Protein, Total 7.6 g/dL (6.4-8.2); Sodium Level 139 mmol/L (136-145); Troponin-I HS 16 pg/mL (3.0-54.0)
[2024-03-05 20:31] LABS: Lactic Acid 0.3 mmol/L (0.4-1.9)
[2024-03-05 20:43] LABS: Bacteria 2+ /hpf (None Seen); Hyaline Cast 0-5 SEEN /lpf (0-5); Red Blood Cells-Urine 0-5 SEEN /hpf (0-5); Squamous Epithelial Cells - UA 0-5 SEEN /hpf (5-10); White Blood Cells 0-5 SEEN /hpf (0-5)
[2024-03-05 20:44] LABS: Renal Epithelial Cells 0-5 SEEN /hpf (0-5)
== END 2024-03-05 23:05 | disposition home or self-care (01) ==
PROVIDERS: Emergency Provider Emergency Medicine; PCP Family Medicine; Visit Provider Emergency Medicine
DX: E86.0 Dehydration (principal); C34.90 Malignant neoplasm of unspecified part of unspecified bronchus or lung; C85.90 Non-Hodgkin lymphoma, unspecified, unspecified site; J44.9 Chronic obstructive pulmonary disease, unspecified; I95.9 Hypotension, unspecified; Z87.891 Personal history of nicotine dependence; G89.29 Other chronic pain; N30.90 Cystitis, unspecified without hematuria; Z79.899 Other long term (current) drug therapy; R42 Dizziness and giddiness; M54.9 Dorsalgia, unspecified; R06.00 Dyspnea, unspecified
CPT/HCPCS: 71045; 71275; 72131; 74176; 80053; 81001; 83605; 83880; 84484; 85027; 87086; 87088; 93005; 94760; 96360; 96361; 99285; J7030; Q9967; A4216

== ENCOUNTER → 2024-05-29 | Outpatient (CLI) | payer OTHER, SELFPAY ==
[2024-05-29 17:58] LABS: PTHIN 85.1 pg/mL (18.4-80.1)
[2024-05-29 17:59] LABS: Vitamin D,25 Hydroxy 15.4 ng/mL
== END | disposition home or self-care (01) ==
LOC: MFPLAB 15:24
PROVIDERS: PCP Family Medicine; Visit Provider Family Medicine
DX: M81.0 Age-related osteoporosis without current pathological fracture (principal)
CPT/HCPCS: 36415; 82306; 83970

== ENCOUNTER → 2024-06-13 | Outpatient (CLI) | payer OTHER, SELFPAY ==
--- NOTE | 2024-06-13 12:30 | BI_ITS ---
MAMMOGRAPHY - BILATERAL SCREENING REASON FOR EXAM: Female, 59 years old. Routine annual screening examination. PERTINENT HISTORY: Non-contributory. History of lung cancer. TECHNIQUE: Digital bilateral breast lacie (3D mammographic acquisition) in the CC and MLO projections. 2-D mediolateral oblique (MLO) and craniocaudad (CC) views of both breasts were obtained. CAD: Full Field Digital Mammography with Computer Added Detection was performed. COMPARISON: None. Baseline examination. FINDINGS: Breast Composition: The breasts are heterogeneously dense, which may obscure small masses. There are no dominant masses or suspicious calcifications. Small benign-appearing right axillary lymph nodes. No other significant abnormalities are identified. There has been no significant change since the prior study. BI/SCRN MAMM (CAD)W/LACIE BILAT IMPRESSION: Stable bilateral screening mammogram. Yearly follow-up mammogram recommended. (A) ASSESSMENT CATEGORY: BIRADS Category 2: Benign. A letter regarding these results will be sent to the patient by the facility within 30 days. Approximately 10% of breast cancers are not detected by mammography. A normal mammogram should not delay biopsy of a clinically suspicious abnormality. [id number] Electronically Signed: Luis Olivas MD at 13:21 EST ,
== END | disposition home or self-care (01) ==
LOC: OPBI 12:30
PROVIDERS: PCP Family Medicine; Referring Provider Family Medicine; Visit Provider Family Medicine
DX: Z12.31 Encounter for screening mammogram for malignant neoplasm of breast (principal)
CPT/HCPCS: 77063; 77067

== ENCOUNTER 2025-04-22 11:38 | Emergency (ER) | payer OTHER, SELFPAY ==
[2025-04-22] VITALS (7 sets, daily range): BP systolic 118–139; BP diastolic 64–79; PULSE 62–71; RESP 12–20; TEMP 36.4–36.6; O2SAT 97–100; BMI 34.3
[2025-04-22 12:51] LABS: Hematocrit 34.3 % (37-47); Hemoglobin 11.3 g/dL (12.0-15.0); Immature Granulocytes Count 0.020 X10^3/uL (0.0-0.0); Mean Corp Hgb Conc 32.9 g/dL (32-36); Mean Corpuscular Volume 91.7 fL (81-99); Mean Platelet Vol. 9.6 fl (6.2-12.0); NRBC Flagged by Analyzer 0 % (0-5); Platelet Count 234 K/mm3 (150-450); RBC Distribution Width CV 12.9 % (11.6-14.6); RBC Distribution Width SD 42.9 fl (35.1-43.9); Red Blood Count 3.74 M/mm3 (4.2-5.4); White Blood Count 4.8 K/mm3 (4.4-11.0)
[2025-04-22 13:13] LABS: AST(SGOT) 26 U/L (<=31); Alanine Aminotransfer ALT/SGPT 21 U/L (<=34); Albumin, Serum 4.2 g/dL (3.4-4.8); Alkaline Phosphatase 57 U/L (35-104); Anion Gap 10 (5-15); BUN 19 mg/dL (4-19); BUN/Creat Ratio 16.9 RATIO (10-20); Calcium,Total 9.2 mg/dL (7.6-11.0); Carbon Dioxide 24.4 mmol/L (21.0-32.0); Chloride 106 mmol/L (98-108); Estimated Creatinine Clearance 56.67 ml/min (50-250); Globulin 2.5 g/dL (2.2-4.2); Glucose 150 mg/dL (70-99); Potassium 3.8 mmol/L (3.3-5.1)
== END 2025-04-22 15:10 | disposition home or self-care (01) ==
PROVIDERS: Emergency Provider Emergency Medicine; PCP Pediatrics; Visit Provider Emergency Medicine
DX: R20.2 Paresthesia of skin (principal); C34.90 Malignant neoplasm of unspecified part of unspecified bronchus or lung; C85.90 Non-Hodgkin lymphoma, unspecified, unspecified site; J44.9 Chronic obstructive pulmonary disease, unspecified; C73 Malignant neoplasm of thyroid gland; M79.601 Pain in right arm; M79.602 Pain in left arm; F32.A Depression, unspecified; D64.9 Anemia, unspecified; Z79.899 Other long term (current) drug therapy; Z87.891 Personal history of nicotine dependence
CPT/HCPCS: 80053; 85025; 99285; A4216

== ENCOUNTER 2025-06-27 17:30 | Emergency (ER) | payer OTHER, SELFPAY ==
[2025-06-27 17:31] VITALS: BP 117/64; PULSE 71; RESP 18; TEMP 36.6; O2SAT 96; BMI 31.8
--- NOTE | 2025-06-27 17:34 | EDS_ITS ---
HPI History of Present Illness Chief Complaint: Fall [facility] Medical History (Updated 06/27/25 @ 17:36 by Norah Rivera) CKD (chronic kidney disease) COPD (chronic obstructive pulmonary disease) Lymphoma Small cell lung cancer Home Medications ?Medication ?Instructions ?Recorded ?Last Taken ?Type cholecalciferol (vitamin D3) 50 50 mcg PO DAILY Unknown History mcg (2,000 unit) capsule (Vitamin D3) metoprolol succinate 25 mg 25 mg PO DAILY 03/05/24 Unk nown History tablet,extended release 24 hr cholecalciferol (vitamin D3) 50 50 mcg PO DAILY Unknown History mcg (2,000 unit) tablet rosuvastatin 5 mg tablet 5 mg PO QHS 06/27/25 Unknown History vitamin B complex 1 tab PO BID 06/27/25 Unknow n History Allergy/AdvReac Type Severity Reaction Status Date / Time No Known Allergies Allergy Verified 06/27/25 17:31 Family History Father Myocardial infarction Surgical History Hx of neck surgery History of ankle surgery History of hysterectomy History of herniorrhaphy Hx of right knee surgery History of section Social History Smoking Status: Former smoker EXAM Physical Exam Const Vital Signs: 06/27/25 17:31 06/27/25 17:35 06/27/25 18:35 Temperature 98 F 97.8 F Temperature Source Oral Temporal Pulse Rate 71 77 Respiratory Rate 18 16 Respiratory Effort Normal Blood Pressure 117/64 128/77 H Blood Pressure Mean 81 94 Pulse Ox 96 98 Oxygen Delivery Method Room Air Room Air Room Air 06/27/25 19:00 06/27/25 20:00 Temperature 97.9 F 98.6 F Temperature Source Oral Oral Pulse Rate 71 71 Respiratory Rate 16 18 Respiratory Effort Blood Pressure 140/64 H 145/73 H Blood Pressure Mean 89 97 Pulse Ox 97 97 Oxygen Delivery Method Room Air Room Air MDM MDM MDM Narrative Medical decision making narrative: HISTORY OF PRESENT ILLNESS: Chief complaint: Fall 60-year-old female history of COPD, small cell lung cancer and lymphoma presents after a fall. She states she has been suffering from fever, cough sore throat and diarrhea. Notes she was going to the bathroom when she had a mechanical fall causing her to fall back and hit her head. She further states she was getting off the toilet secondary to diarrhea when she was going to her bed and lost consciousness and fell backwards hitting her head. Denies prodromal chest pain, shortness of breath. Denies recent leg swelling. Notes she felt dizzy warm and lightheaded prior to passing out and falling REVIEW OF SYSTEMS: Pertinent positives: As per HPI Pertinent negatives: As per HPI PHYSICAL EXAM: Nursing triage notes reviewed, Vital signs reviewed Primary Survey Airway: Intact Breathing: Bilateral breath sounds Circulation: Palpable bilateral femorals, Palpable bilateral radial, Palpable bilateral DP and Palpable bilateral PT Disability / Spine precautions GCS Score: Eye Openin Verbal Response: 5 Motor Response: 6 Secondary Survey Constitutional: Please see [facility] Head: Atraumatic, Midface stable, NO jaw malocclusion, No Cephalohematoma, and No Lacerations noted Eye: Pupils equal round and reactive to light, Extraocular muscles intact and No periorbital ecchymosis or stepoff, no evidence of entrapment ENT: Oropharynx clear, no lacerations, no hemotympanum, no raccoon eyes or hayden sign Cervical spine / Neck: No cervical spine bony tenderness, crepitance, or stepoff deformity Trachea midline Lungs: Clear to auscultation, No asymmetric rise and No crepitus, no flail chest Cardiac: Regular rate and rhythm and No murmurs Abdomen: Soft, Nontender and No rebound Pelvis: Pelvis stable to compression : No evidence of genital injury Back: No midline bony tenderness to thoracic/lumbar/sacral spines Neuro: At baseline, intact strength and sensation in bilateral upper and lower extremities. 2+ patellar reflexes bilaterally. Extremities: NO gross Deformities Psych: Normal affect Nursing triage notes reviewed, Vital signs reviewed MEDICAL DECISION MAKING: Chief Complaint: please see HPI External records reviewed: Reviewed prior imaging studies. Factors affecting care: n as per HPI Social determinants of health: none History obtained from others: Family member Consults: none [facility] Narrative: Patient was initially hemodynamically stable, afebrile and nontoxic-appearing. Exam without obvious trauma. No focal cardiopulmonary normalities. No stigmata of VTE, aortic dissection or CHF on initial exam. I considered the following differential diagnosis: ICH, ACS, viral illness, pneumonia, anemia, electrolyte disturbance, dehydration I obtained a broad lab and imaging work to further determine if the patient was suffering from a life-threatening etiology. Initially assessed the patient with 4 mg IV Zofran and 1 L normal saline ALL IMAGES (IF OBTAINED) HAVE BEEN PERSONALLY REVIEWED AND INTERPRETED BY MYSELF. EKG with normal sinus rhythm rate 78, normal axis, no intervals, no STEMI High-sensitivity troponin is negative, no evidence of myocardial ischemia CBC with no leukocytosis to suggest a stomach relation, noted mild anemia but no thrombocytopenia BMP without significant Nyla normalities, noted metabolic acidosis consistent with likely dehydration, Urinalysis shows no evidence of urinary inflammation suggestive of UTI RSV/flu/COVID positive for RSV and flu I have personally reviewed the patient's chest x-ray. Chest x-ray is unremarkable for pulmonary edema, pneumothorax, pneumonia or focal cardiopulmonary abnormality. CT scan of the brain negative I suspect patient's symptoms are related to relative dehydration given Report of diarrhea and the fact that she is influenza and RSV positive. She is likely stable from dehydration from insensible losses. Encourage increase p.o. intake. Patient is able to ambulate here without significant hypoxia. Not suspect she would benefit of hospitalization at this time. Discussed with patient. She is aware of risk and benefits of being discharged. She is agreeable with the plan. She will encourage more p.o. intake. She will follow-up with her primary care physician. Will come back to the ED if symptoms change or worsen The patient and/or family, caregivers express understanding. The patient and/or family, caregivers agrees with the plan. Shared decision making: I will have a discussion with the patient and or visitors regarding risk/benefits of further testing or admission. They will be made aware of of the risk/benefits inherent in this decision they will be given the opportunity to voice understanding. Total critical care time today provided was at least 0 minutes. This excludes separately billable procedures. Critical care time (if documented) is secondary to the patient having high probability of clinically significant/life threa tening deterioration in the patient's condition which required my urgent intervention. Impression: 1. Syncope 2. Dehydration 3. RSV infection 4. Influenza infection Dispo: Discharge home This note was generated with [employer] dictation software. It may contain incorrect words, spelling, and punctuation that were not noted in review of the chart prior to signing. Lab Data Labs: Laboratory Results - last 24 hr 06/27/25 06/27/25 18:07 19:17 WBC 4.1 L RBC 3.69 L Hgb 11.3 L Hct 34.4 L MCV 93.2 MCH 30.6 MCHC 32.8 RDW Std Deviation 44.3 H RDW Coeff of Robert 12.9 Plt Count 181 MPV 9.4 Immature Gran % (Auto) 0.200 Neut % (Auto) 71.1 H Lymph % (Auto) 13.6 L Seneca % (Auto) 11.4 H Eos % (Auto) 3.5 Baso % (Auto) 0.2 Absolute Neuts (auto) 2.9 Absolute Lymphs (auto) 0.55 L Nucleated RBC % 0 Sodium 138 Potassium 3.7 Chloride 110 H Carbon Dioxide 16.9 L Anion Gap 12 BUN 12 Creatinine 1.24 H Estim Creat Clear Calc 50.65 Est GFR (MDRD) Non-Af 50 L BUN/Creatinine Ratio 9.5 L Glucose 131 H Calcium 8.8 Troponin T High Sens 6 Urine Color Yellow Urine Clarity Sl. Cloudy Urine pH 6.0 Ur Specific Bieber 1.025 Urine Protein 30 H Urine Glucose (UA) Normal Urine Ketones Negative Urine Occult Blood 150 H Urine Nitrite Negative Urine Bilirubin Negative Urine Urobilinogen Normal Ur Leukocyte Esterase 25 H Urine RBC 0-5 SEEN Urine WBC 5-10 SEEN Ur Squamous Epith Cells 5-10 SEEN Urine Bacteria RARE Urine Mucus 0 SEEN Radiography Diagnostic Testing: Clinical Impression(s) from Imaging Studies Brain CT 06/27/25 17:49 IMPRESSION: No acute intracranial abnormalities. Reading Location: [id number] Chest X-Ray 06/27/25 18:25 IMPRESSION: No Acute Findings. Reading Location: [facility] Discharge Plan Triage Chief Complaint: Fall ED Provider: Jamal Cox Dx/Rx/DC Orders Prescriptions: No Action metoprolol succinate 25 mg tablet extended release 24 hr 25 mg PO DAILY cholecalciferol (vitamin D3) [Vitamin D3] 50 mcg (2,000 unit) capsule 50 mcg PO DAILY vitamin B complex Tablet 1 tab PO BID rosuvastatin 5 mg tablet 5 mg PO QHS cholecalciferol (vitamin D3) 50 mcg (2,000 unit) tablet 50 mcg PO DAILY Primary Care Provider: Marsha Baptiste Referrals: Marsha Baptiste MD [Primary Care Provider, Family Practice] Print Language: Italian
--- NOTE | 2025-06-27 17:49 | EKG12_ITS ---
Test Reason : Blood Pressure : */* mmHG Vent. Rate : 78 BPM Atrial Rate : 78 BPM P-R Int : 178 ms QRS Dur : 80 ms QT Int : 374 ms P-R-T Axes : 72 76 68 degrees QTcB Int : 426 ms Normal sinus rhythm T wave abnormality, consider anterior ischemia Abnormal ECG Confirmed by Germán Willoughby ([id number]), editor magazine POLLY THRASHER ([id number]) on 07/04/2025 6:51:09 AM Referred By: Confirmed By: Germán Willoughby
--- NOTE | 2025-06-27 17:49 | CT_ITS ---
PROCEDURE: BRAIN/HEAD WITHOUT CONTRAST 06/27/2025 REASON FOR EXAM: FALL, HEAD TRAUMA TECHNIQUE: Procedure Code: CTBR Modality: CT Procedure: BRAIN/HEAD WITHOUT CONTRAST Coronal and Sagittal reconstruction series were provided. One or more dose reduction techniques were used (e.g., Automated exposure control, adjustment of the mA and/or kV according to patient size, use of iterative reconstruction technique. RADIATION DOSE SUMMARY: CTDlvol: 44.99 mGy DLP: 796.11 mGycm COMPARISON: None. FINDINGS: Brain: No acute territorial infarction. No acute intracranial hemorrhage. No mass-effect or midline shift. Diffuse white matter hypodensities which are nonspecific but likely due to chronic small-vessel ischemia. Parenchymal volume loss consistent with brain atrophy. No ventriculomegaly. The orbits are unremarkable. The craniocervical junction is unremarkable. CSF Spaces: Advanced generalized cerebral atrophy Sinuses/Mastoids: Clear Bones: No acute bony abnormalities. CT/Brain/Head without Contrast IMPRESSION: No acute intracranial abnormalities. Reading Location: [facility]
[2025-06-27] MEDS: 0.9% Normal Saline (1000mL) 1,000 ML 1000 ML IV (18:12)
--- OUTSIDE RECORDS SUMMARY | 2025-06-27 18:20 | XMS RPT_ITS | CCD ---
Author Organization [facility] ion [facility] Care Team Providers Care Supervisor Detasseling Crew Name Role Phone Satyan, Yuri B Unavailable Unavailable Chinyere Lara Unavailable Unavailable Satyan, Yuri B Unavailable Unavailable Satyan, Yuri B Unavailable Unavailable Chinyere Lara Unavailable Unavailable Satcatherine, Yuri B Unavailable Unavailable Chinyere Lara Unavailable Unavailable CHINYERE LARA Consulting Unavailable CHINYERE LARA Attending Unavailable CHINYERE LARA Admitting Unavailable CHINYERE LARA Primary Care Unavailable PROVIDER, UNKNOWN Consulting Unavailable PROVIDER, UNKNOWN Consulting Unavailable PROVIDER, UNKNOWN Consulting Unavailable CHINYERE LARA Attending Unavailable CHINYERE LARA Admitting Unavailable CHINYERE LARA Primary Care Unavailable CHINYERE LARA Consulting Unavailable PROVIDER, UNKNOWN Consulting Unavailable PROVIDER, UNKNOWN Consulting Unavailable PROVIDER, UNKNOWN Consulting Unavailable Chinyere Lara MD Primary Care Provider Lawrence WONG, , Caitlin Unavailable Jalen RN, [place] Unavailable Unavailable Raven East DO Unavailable Chinyere Lara MD Unavailable Dr. Lawanda Dean MD Unavailable [facility] Unavailable [facility], . Unavailable Saul WONG, Dr. Bhatt Unavailable [facility], [place] [facility] Unavailable [facility], [facility] Unavailable [facility] Unavailable [phone] Nicola WONG, Dr. Bethany Gan Unavailable Miriam Webb LPN Unavailable Dino BAE, Deandra Matthew Unavailable Robert TURKEY EGG GATHERER, Marshes Siding Unavailable Unavailable Compa TURKEY EGG GATHERER, Jerrica E Unavailable Unavailable Torres TURKEY EGG GATHERER, Jing Unavailable Unavailable Clark WONG, Min Watts Unavailable Ravi BAE, Giancarlo Huerta Unavailable Blake ZAVALETA, Keely Unavailable Unavailable Moy YEN, Yasmin Watts Unavailable Unavaila ble Mian TURKEY EGG GATHERER, Mitul Unavailable Unavailable Howard BAE, Juliocesar J Unavailable Rodrigo LOCKSMITH APPRENTICE, Tari Unavailable Unavailable Gaurav TURKEY EGG GATHERER, Anna M Unavailable Unavailab le Harleigh TURKEY EGG GATHERER, Jennifer Unavailable Unavailab le Wengerd TURKEY EGG GATHERER, Татьяна Unavailable Unavailabl e Zaugg TURKEY EGG GATHERER, Kacey Unavailable Unavailable Unavailable Unavailable Lawrence WONG, Caitlin Unavailable Lon WONG, Chinyere Cruz Primary Care Provider [phone] Williams WONG, Neptali Unavailable Greg Patel MD Primary Care Provider NEPTALI LAKE Referring Unavailable CHINYERE LARA Primary Care Unavailable NEPTALI LAKE Referring Unavailable CHINYERE LARA Primary Care Unavailable WILLIAMS, NEPTALI Referring Unavailable CHINYERE LARA Primary Care Unavailable ERNESTO MACE Admitting Unavailable ERNESTO MACE Attending Unavailable RAVEN EAST Referring Unavailable BAPTISTE, WERNER Primary Care Unavailable RAVEN EAST Referring Unavailable WERNER BAPTISTE Primary Care Unavailable Greg Patel Primary Care Unavailable Greg Patel Attending Unavailable Jorge, Greg Primary Care Unavailable Greg Patel Referring Unavailable Greg Patel Attending Unavailable Werner Baptiste Primary Care Unavailable Osman Pelletier Attending Unavailable Prabhu WONG, Dr. Brewer Attending Physician Dr. Osman Pelletier MD Emergency Department Physician Emile WONG, Dr. Werner [place] Primary Care Physician RAVEN EAST Attending Unavailable GREG PATEL A Primary Care Unavailable VICKI NATHAN Referring Unavailable RAVEN EAST A Referring Unavailable BAPTISTE, WERNER Primary Care Unavailable BAPTISTE, WERNER Referring Unavailable TERRENCE BRUNER Attending Unavailable BAPTISTE, WERNER Primary Care Unavailable BAPTISTE, WERNER Referring Unavailable KEITH PATELIC A Primary Care Unavailable MASCI, RAVEN A Referring Unavailable PATEL, GREG A Primary Care Unavailable MASCI, RAVNE A Referring Unavailable PATEL, GREG A Primary Care Unavailable LON, CHINYERE CRUZ Referring Unavailable АЛЕКСАНДР DUGAN Attending Unavailable PATEL, GREG A Primary Care Unavailable LON, CHINYERE CRUZ Primary Care Unavailable MASCI, RAVEN A Referring Unavailable TOMAS, АЛЕКСАНДР Attending Unavailable LON, CHINYERE CRUZ Primary Care Unavailable MASCI, RAVEN A Referring Unavailable BROWN, CHINYERE CRUZ Primary Care Unavailable MASCI, RAVEN A Referring Unavailable MASCI, RAVEN A Referring Unavailable MASCI, RAVEN A Attending Unavailable PATEL, GREG A Primary Care Unavailable XIAO PEREZ Referring Unavailable MASCI, RAVEN Watts Attending Unavailable MASCI, RAVEN A Referring Unavailable BAPTISTE, WERNER Primary Care Unavailable BAPTISTE, WERNER Attending Unavailable MASCI, RAVEN A Referring Unavailable PATEL, GREG A Primary Care Unavailable PATEL, GREG A Primary Care Unavailable XIAO PEREZ Attending Unavailable PATEL, GREG A Primary Care Unavailable XIAO PEREZ Referring Unavailable MASCI, RAVEN A Attending Unavailable PATEL, GREG A Primary Care Unavailable MASCI, RAVEN A Attending Unavailable PATEL, GREG A Primary Care Unavailable MASCI, RAVEN A Referring Unavailable PATEL, GREG A Primary Care Unavailable PATEL, GREG A Primary Care Unavailable MASCI, RAVEN A Referring Unavailable MASCI, RAVEN A Referring Unavailable PATEL, GREG A Primary Care Unavailable PATEL, GREG A Primary Care Unavailable MASCI, RAVEN A Referring Unavailable PATEL, GREG A Primary Care Unavailable LON, CHINYERE CRUZ Referring Unavailable PATEL, GREG A Primary Care Unavailable LON, CHINYERE CRUZ Referring Unavailable PATEL, GREG A Primary Care Unavailable Medications Current Medications Medication Drug Class(es) Dates Sig (Normalized) Sig (Original) acetaminophen 325 mg oral tablet (20 sources) take 2 tablets by mouth every six hours as needed acetaminophen (TYLENOL) 325 mg tablet Take 650 mg by mouth every 6 hours as needed. 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 40 tablet 08/27/2024 09/03/2024 Active acetaminophen with codeine (TYLENOL-CODEINE #3 ORAL) (12 sources) acetaminophen wi th codeine (TYLENOL-CODEINE #3 ORAL) Take by mouth as needed. Active [id number] 200 actuat albuterol 0.09 mg/actuat metered dose inhaler (20 sources) beta2-Adrenergi c Agonist Start: 01-12-2022 take 2 puff(s) by inhalation every six hours as needed for cough Albuterol Sulfate HFA 108 (90 Base) MCG/ACT Inhalation Aerosol Solution ; 2 (two) Puff q 6hrs prn cough , sob for 0 days Quantity: 1 {Each} Refills: 5 Ordered: 12-Jan-2022 ANGELLA Ng Werner Mendieta Start: 12-Jan-2022 Comments: dispense inhaler Start: 04-27-2021 End: 08-27-2024 take 2 puff(s) by inhalation every four hours as needed albuterol HFA (PROVENTIL HFA, VENTOLIN HFA) 90 mcg/actuation inhaler Inhale 2 Puffs as instructed every 4 hours as needed. 04/27/2021 08/27/2024 Discontinued Start: 04-27-2021 take 2 puff(s) by in halation every four to six hours as needed albuterol HFA (PROVENTIL HFA, VENTOLIN HFA) 90 mcg/actuation inhaler Inhale 2 Puffs as instructed as needed. Every 4-6 hours 0 04/27/2021 Active take 2 puff(s) by in halation every four to six hours ProAir HFA 108 (90 Base) MCG/ACT Inhalation Aerosol Solution ; 2 puffs every 4-6 hours (108 (90 Base) MCG/ACT) Status: Inactive Comments: [facility] [place] Comment on above: Inhale 2 Puffs as in structed as needed. Every 4-6 hours Inhale 2 Puffs as in structed every 4 hours as needed. dispense inhaler [facility] [address] cholecalciferol 0.05 mg oral capsule (9 sources) Vitamin D Start: 03-05-2024 take 1 capsule by mouth once daily End: 08-27-2024 take 1 capsule by mouth once daily Cholecalciferol, Vitamin D3, (VITAMIN D-3) 50 mcg (2,000 unit) cap Take 2,000 Units by mouth once daily. 08/27/2024 Discontinued cholecalciferol, vitamin D3, (VITAMIN D3 ORAL) (12 sources) take 50 ug by mouth once daily cholecalciferol, vitamin D3, (VITAMIN D3 ORAL) Take 50 mcg by mouth once daily. Active take 1 tablet by mouth once emilia y cholecalciferol, vitamin D3, (VITAMIN D3 ORAL) Take 1 tablet by mouth once daily. Active docusate sodium 100 mg oral capsule (20 sources) take 1 capsule by mouth once daily docusate sodium (COLACE) 100 mg capsule Take 100 mg by mouth once daily. Active LORazepam 0.5 mg oral tablet (20 sources) Benzodiazepine Start: 06-01-2023 End: 06-15-2023 take 1 tablet by mouth three times daily as needed LORazepam (ATIVAN) 0.5 mg Indications: Small cell lung cancer (HCC) , Anxiety associated with cancer diagnosis (HCC) Take 1 tablet by mouth three times a day as needed for up to 14 days. 42 tablet 0 06/01/2023 06/15/2023 Active Start: 06-16-2015 End: 05-26-2017 take 1 tablet by mouth three times daily as needed for anxiety LORazepam 1 MG Oral Tablet ; 1 (one) Tablet TID PRN ANXIETY for 0 days Quantity: 30 {Tablet} Refills: 0 Ordered: 26-May-2017 ANGELLA Chatman Start: 16-Jun-2015 End: 26-May-2017 Status: Inactive Comments: [facility] 06/16/15 Comment on above: Take 1 tablet by valente three times a day as needed for up to 14 days. [facility] 24 hr metoprolol succinate 25 mg extended release oral tablet (20 sources) beta-Adrenergic Claudia Start: 02-21-2024 End: 02-20-2025 take 1 tablet by mouth once daily nitrofurantoin, macrocrystals 100 mg oral capsule (20 sources) Nitrofuran Antibacterial Start: 03-05-2024 take 1 capsule by mouth twice daily at mealtime Start: 04-03-2020 End: 04-10-2020 take 1 capsule by mouth twice daily Nitrofurantoin Macrocrystal 100 MG Oral Capsule ; 1 (one) Capsule bid for 7 days Quantity: 14 {Capsule} Refills: 0 Ordered: 03-Apr-2020 MD Chinyere Lara Start: 03-Apr-2020 End: 10-Apr-2020 Status: Inactive OLANZapine 5 mg oral tablet (20 sources) Atypical Antipsychotic Start: 07-28-2023 End: 11-23-2023 take 1 tablet by mouth once daily Start: 06-04-2023 take 1 tablet by valente th once daily at bedtime OLANZapine (ZYPREXA) 5 mg tablet Take 1 tablet by mouth daily at bedtime. beginning the evening of first day of chemotherapy each cycle. 16 tablet 0 06/04/2023 Active Comment on above: Take 1 tablet by valente th daily at bedtime. beginning the evening of first day of chemotherapy each cycle. ondansetron 4 mg disintegrating oral tablet (20 sources) Serotonin-3 Receptor Antagonist Start: 03-05-2024 take 1 tablet by mouth every eight hours as needed for nausea Start: 08-18-2023 take 1 tablet by valente th every eight hours Start: 06-04-2023 End: 11-23-2023 take 1 tablet by mouth every eight hours as needed for nausea ondansetron (ZOFRAN) 8 mg tablet Indications: cancer chemotherapy-induced nausea and vomiting Take 1 tablet by mouth every 8 hours as needed for nausea/vomiting. 30 tablet 2 06/04/2023 11/23/2023 Discontinued (Patient chooses alternative therapy) Comment on above: Take 1 tablet by valente th every 8 hours as needed for nausea/vomiting. prochlorperazine 10 mg oral tablet (20 sources) Phenothiazine Start: 08-18-2023 take 1 tablet by mouth twice daily as needed for nausea and vomiting Start: 06-04-2023 End: 08-02-2024 take 1 tablet by mouth every six hours as needed prochlorperazine (COMPAZINE) 10 mg tablet Take 1 tablet by mouth every 6 hours as needed. 30 tablet 2 06/04/2023 08/02/2024 Discontinued (Other) Comment on above: Take 1 tablet by valnete th every 6 hours as needed. triamcinolone acetonide 1 mg/ml topical cream (20 sources) Corticosteroid Start: 024 apply 1 g topically twice daily triamcinolone acetonide 0.1 % topical cream ; 1 (one) gram bid for 0 days Quantity: 60 {Gram} Refills: 2 Ordered: 07-Dec-2023 MD Chinyere Lara Start: 07-Dec-2023 Start: 01-29-2021 End: 07-09-2021 Triamcinolone Acetonide 0.02 5 % External Cream ; 1 (one) Application two times daily for 0 days Quantity: 1 {Tube} Refills: 0 Ordered: 09-Jul-2021 ANUEL Wallace Start: 29-Jan-2021 End: 09-Jul-2021 Status: Discontinued Comments: 80 g tube Start: 01-11-2016 End: 03-25-2016 Triamcinolone Acetonide 0.1 % External Cream ; 1 (one) Application(s) Application(s) two times daily for 0 days Quantity: 80 {Gram} Refills: 0 Ordered: 25-Mar-2016 ANGELLA Chatman Start: 11-Jan-2016 End: 25-Mar-2016 Status: Inactive Comment on above: 80 g tube varenicline 1 mg oral tablet (20 sources) Partial Cholinergic Nicotinic Agonist Start: take 1 tablet by mouth twice daily Varenicline Tartrate 1 MG Oral Tablet ; 1 (one) Tablet BID for 0 days Quantity: 60 {Tablet} Refills: 2 Ordered: 12-Jan-2022 ANGELLA Ng Werner Mendieta Start: 12-Jan-2022 Start: 01-12-2022 End: 01-19-2022 Varenicline Tartrate 0.5 MG Oral Tablet ; 1 (one) Tablet qd x 3 days then bid x 4 days for 7 days Quantity: 11 {Tablet} Refills: 0 Ordered: 12-Jan-2022 MD Chinyere Lara Start: 12-Jan-2022 End: 19-Jan-2022 Status: Inactive Start: 12-31-2020 End: 07-09-2021 take 1 tablet by mouth twice daily Chantix 1 MG Oral Tablet ; 1 (one) Tablet bid for 0 days Quantity: 60 {Tablet} Refills: 2 Ordered: 31-Dec-2020 MD Chinyere Lara Start: 31-Dec-2020 End: 09-Jul-2021 Status: Discontinued Comments: This order discontinued per [facility]. Start: 10-09-2020 End: 10-16-2020 Chantix 0.5 MG Oral Tablet ; 1 (one) Tablet qd x 3 days then bid x 4 days for 7 days Quantity: 11 {Tablet} Refills: 0 Ordered: 09-Oct-2020 MD Chinyere Lara Start: 09-Oct-2020 End: 16-Oct-2020 Status: Inactive Comment on above: This order discontin ued per [facility]. Vitamin B Complex (20 sources) take 1 tablet by mouth once daily vitamin B complex (B COMPLEX ORAL) Take 1 tablet by mouth once daily. Active take 1 tablet by mouth once emilia y vitamin B complex (B COMPLEX ORAL) Take 1 tablet by mouth once daily. 0 Active Comment on above: Take 1 tablet by valente th once daily. Completed/Discontinued Medications Medication Drug Class(es) Dates Sig (Normalized) Sig (Original) acetaminophen 325 mg / HYDROcodone bitartrate 5 mg oral tablet (20 sources) Opioid Agonist Start: 05-26-2017 End: 07-14-2017 take 1 tablet by mouth every four to six hours as needed Hydrocodone-Aceta minophen 5-325 MG Oral Tablet ; 1 (one) Tablet every 4-6 hours as needed for pain for 0 days Quantity: 10 {Tablet} Refills: 0 Ordered: 14-Jul-2017 ANGELLA Chatman Start: 26-May-2017 End: 14-Jul-2017 Status: Inactive Comments: Medication taken as needed. [facility] 05/26/17 Start: 11-14-2014 End: 08-18-2023 Hydrocodone-Acetaminophen 1 TABLET tablet Discontinued 1 - 2 {tbl} PO EVERY 4 HOURS NEEDED as needed for Pain 20 November 13, 2014 11:00pm August 18, 2023 9:06am Start: 11-14-2014 End: 08-18-2023 take 1 tablet by mouth every four hours as needed Hydrocodone-Acetaminophen Discontinued 1 - 2 TABLET PO EVERY 4 HOURS NEEDED November 13, 2014 11:00pm August 18, 2023 9:06am HYDROCODONE-ACET AMINOPHEN, 5-325MG (Oral Tablet) ; (5-325 MG) Status: Inactive Comment on above: Medication taken as needed. [facility] 05/26/17 acetylcysteine 600 mg oral capsule (8 sources) Antidote, Mucolytic, Antidote for Acetaminophen Overdose End: 025 take 2 capsules by mouth twice daily acetylcysteine (NAC) 600 mg capsule Take 1,200 mg by mouth two times a day. 08/27/2024 Discontinued acyclovir 800 mg oral tablet (20 sources) Herpesvirus Nucleoside Analog DNA Polymerase Inhibitor, Herpes Simplex Virus Nucleoside Analog DNA Polymerase Inhibitor, Herpes Zoster Virus Nucleoside Analog DNA Polymerase Inhibitor ACYCLOVIR, 800MG (Oral Tablet) ; (800 MG) Status: Inactive amoxicillin 500 mg oral tablet (20 sources) Penicillin-class Antibacterial Start: End: take 1 tablet by mouth three times daily AMOXICILLIN, 500MG (Oral Tablet) ; 1 Tab three times daily for 10 days Quantity: 30 {Tab} Refills: 0 Ordered: 07-May-2012 MD Chinyere Lara Start: 07-May-2012 End: 17-May-2012 Status: Inactive amoxicillin 875 mg / clavulanate 125 mg oral tablet (20 sources) Penicillin-class Antibacterial Start: End: take 1 tablet by mouth twice daily Amoxicillin-Pot Clavulanate 875-125 MG Oral Tablet ; 1 (one) Tablet bid for 10 days Quantity: 20 {Tablet} Refills: 0 Ordered: 06-Jun-2022 MD Chinyere Lara Start: 06-Jun-2022 End: 16-Jun-2022 Status: Inactive aspirin 325 mg / butalbital 50 mg / caffeine 40 mg oral capsule (20 sources) Platelet Aggregation Inhibitor, Barbiturate, Nonsteroidal Anti-inflammatory Drug, Central Nervous System Stimulant, Methylxanthine Start: End: take 1 capsule by mouth every six hours as needed for headache Fiorinal 50-325-40 MG Oral Capsule ; 1 (one) Capsule q 6hrs prn headache for 0 days Quantity: 20 {Capsule} Refills: 0 Ordered: 25-May-2020 ANUEL Wallace Start: 25-May-2020 End: 09-Jul-2021 Status: Discontinued Comments: This order discontinued per [facility]. Comment on above: This order discontin ued per [facility]. azithromycin 250 mg oral tablet (20 sources) Macrolide Antimicrobial Start: End: take 1 tablet by mouth once daily Azithromycin 250 mg tablet Discontinued 250 mg PO DAILY 4 December 12, 2023 11:00pm March 05, 2024 6:49pm Start: 07-20-2020 End: 08-04-2020 Zithromax 250 MG Oral Tablet ; 2 (two) Tablet today then 1 qd x 4 days for 0 days Quantity: 6 {Tablet} Refills: 0 Ordered: 04-Aug-2020 ANGELLA Webb Start: 20-Jul-2020 End: 04-Aug-2020 Status: Inactive benzonatate 100 mg oral capsule (20 sources) Non-narcotic Antitussive Start: 06-02-2021 End: 07-09-2021 take 1 capsule by mouth three times daily as needed Tessalon Perles 100 MG Oral Capsule ; 1 (one) Cap three times daily as needed for cough for 0 days Quantity: 30 {Cap} Refills: 0 Ordered: 09-Jul-2021 RodrigoANUEL Tari Start: 02-Jun-2021 End: 09-Jul-2021 Status: Discontinued Comments: Medication taken as needed. swallow whole Comment on above: Medication taken as needed. swallow whole smoking cessation 12 hr buPROPion hydrochloride 150 mg extended release oral tablet (20 sources) Aminoketone Start: 11-16-2021 End: 01-12-2022 take 1 tablet by mouth twice daily buPROPion HCl ER (Smoking Det) 150 MG Oral Tablet Extended Release 12 Hour ; 1 (one) Tablet bid for 0 days Quantity: 60 {Tablet} Refills: 5 Ordered: 12-Jan-2022 MD Chinyere Lara Start: 16-Nov-2021 End: 12-Jan-2022 Status: Inactive Start: 01-30-2013 End: 12-30-2013 BUPROPION HCL ER (SR), 150MG (Oral Tablet Extended Release 12 Hour) ; 1 Tablet ER 12HR Tablet ER 12HR bid for 0 days Quantity: 60 {Tablet_ER_12HR} Refills: 5 Ordered: 30-Dec-2013 ANGELLA Chatman Start: 30-Jan-2013 End: 30-Dec-2013 Status: Inactive calcium citrate 950 mg oral tablet (8 sources) End: 08-27-2024 calcium citrate (CALCITRATE) 200 mg (950 mg) tab Take 950 mg by mouth two times a day. 08/27/2024 Discontinued celecoxib 200 mg oral capsule (20 sources) Nonsteroidal Anti-inflammatory Drug Start: 11-05-2019 End: 08-04-2020 take 1 capsule by mouth twice daily CeleBREX 200 MG Oral Capsule ; 1 (one) Capsule bid for 0 days Quantity: 60 {Capsule} Refills: 0 Ordered: 04-Aug-2020 ANGELLA Webb Start: 05-Nov-2019 End: 04-Aug-2020 Status: Inactive take 1 capsule by mouth once mine ly Celecoxib 200 MG Oral Capsule ; 1 daily (200 MG) Status: Inactive ciprofloxacin 250 mg oral tablet (20 sources) Quinolone Antimicrobial Start: 07-21-2021 End: 07-24-2021 take 1 tablet by mouth twice daily Cipro 250 MG Oral Tablet ; 1 (one) Tablet BID for 3 days Quantity: 6 {Tablet} Refills: 0 Ordered: 21-Jul-2021 CATALINO Rodrigues Start: 21-Jul-2021 End: 24-Jul-2021 Status: Inactive Start: 03-31-2020 End: 04-05-2020 take 1 tablet by mouth twice daily Cipro 500 MG Oral Tablet ; 1 Tab two times daily for 5 days Quantity: 10 {Tablet} Refills: 0 Ordered: 31-Mar-2020 MD Chinyere Lara Start: 31-Mar-2020 End: 05-Apr-2020 Status: Inactive codeine phosphate 2 mg/ml / promethazine hydrochloride 1.25 mg/ml oral solution (20 sources) Opioid Agonist, Phenothiazine Start: 02-21-2022 End: 06-06-2022 take 5 mL by mouth every six hours as needed for cough Promethazine-Codeine 6.25-10 MG/5ML Oral Syrup ; 5 Milliliter q 6hrs prn cough for 0 days Quantity: 240 {Milliliter} Refills: 0 Ordered: 06-Jun-2022 ANGELLA Ng Werner Mendieta Start: 21-Feb-2022 End: 06-Jun-2022 Status: Inactive cyclobenzaprine hydrochloride 10 mg oral tablet (20 sources) Muscle Relaxant Start: 11-14-2014 End: 03-05-2024 take 1 tablet by mouth three times daily as needed for muscle spasms Cyclobenzaprine 10 MG tablet Discontinued 10 mg PO THREE TIMES A DAY as needed for Muscle Spasm 20 0 November 13, 2014 11:00pm March 05, 2024 6:49pm On Hold: Order Changed Comment on above: May cause drowsiness dexamethasone 4 mg oral tablet (20 sources) Corticosteroid Start: 08-18-2023 End: 03-05-2024 take 1 tablet by mouth once daily Dexamethasone 4 mg tablet Discontinued 4 mg PO DAILY August 18, 2023 12:00am March 05, 2024 6:49pm Start: 06-04-2023 End: 11-23-2023 take 1 tablet by mouth twice daily at mealtime dexAMETHasone (DECADRON) 4 mg tablet Take 1 tablet by mouth two times a day with meals. (breakfast and lunch) for 3 days beginning the day after chemotherapy treatment. 24 tablet 0 06/04/2023 11/23/2023 Discontinued Comment on above: Take 1 tablet by valente th two times a day with meals. (breakfast and lunch) for 3 days beginning the day after chemotherapy treatment. diphenhydrAMINE hydrochloride 2.5 mg/ml oral solution (20 sources) Histamine-1 Receptor Antagonist Start: 08-18-19 End: 03-05-20 take 12.5 mg by mouth three times daily Diphenhydramine Hcl (Allergy (Diphenhydramine)) 12.5 mg/5 mL liquid Discontinued 12.5 mg PO THREE TIMES A DAY August 18, 2023 12:00am March 05, 2024 6:49pm End: 11-23-2023 diphenhydrAMINE (BENADRYL AL LERGY) 12.5 mg/5 mL liquid Take 50 mg by mouth two times a day. twice daily 0 11/23/2023 Discontinued (Patient chooses alternative therapy) Comment on above: Take 50 mg by mouth two times a day. twice daily diphenhydrAMINE-ma alox-lidocaine (BMX 1:1:1) 1:1:1 liqd (20 sources) Start: 06-23-2023 End: 11-23-2023 take 10 mL by mouth every four hours as needed diphenhydrAMINE-maalox- lidocaine (BMX 1:1:1) 1:1:1 liqd Take 10 mL by mouth every 4 hours as needed. 500 mL 2 06/23/2023 11/23/2023 Discontinued (Other) Start: 06-23-2023 take 10 mL by mouth every four hours as needed [id number] (BMX 1: 1:1) 1:1:1 liqd Take 10 mL by mouth every 4 hours as needed. 500 mL 2 06/23/2023 Active Comment on above: Take 10 mL by mouth every 4 hours as needed. doxycycline hyclate 100 mg oral tablet (20 sources) Tetracycline-class Drug Start: 06-02-20 End: 06-09-20 take 1 tablet by mouth twice daily Doxycycline Hyclate 100 MG Oral Tablet ; 1 (one) Tablet BID for 7 days Quantity: 14 {Tablet} Refills: 0 Ordered: 02-Jun-2021 CATALINO Rodrigues Start: 02-Jun-2021 End: 09-Jun-2021 Status: Inactive DULoxetine 60 mg delayed release oral capsule (5 sources) Serotonin and Norepinephrine Reuptake Inhibitor Start: 11-01-19 End: 11-23-19 take 1 capsule by mouth once daily DULoxetine (CYMBALTA) 60 mg capsule Take 1 capsule by mouth once daily. 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) For CT ABD/PEL W IVCON Routine order Administer, As Directed One Time Only, via Oral, Rectal, both Oral and Rectal, Enteric Tube, Stoma or Indwelling Catheter, Enteric Contrast as designated per enteric contrast guidelines 1 each 11/06/2024 02/20/2025 Discontinued Start: 11-06-[address] (will be provided with radiology test) Indications: 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) , 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) For CT ABD/PEL W IVCON Routine order Administer, As Directed One Time Only, via Oral, Rectal, both Oral and Rectal, Enteric Tube, Stoma or Indwelling Catheter, Enteric Contrast as designated per enteric contrast guidelines 1 each 11/06/2024 Active Start: 08-02-2024 End: 08-03-2024 enteric contrast (will be pr ovided with radiology test) Indications: Encounter for follow-up surveillance of lung cancer , Small cell lung cancer, unspecified laterality (HCC) , Dyspnea and respiratory abnormalities For CT CHESTABD/PEL W IVCON Routine order Administer, As Directed One Time Only, via Oral, Rectal, both Oral and Rectal, Enteric Tube, Stoma or Indwelling Catheter, Enteric Contrast as designated per enteric contrast guidelines 1 Each 08/02/2024 08/03/2024 Active Start: 05-02-2024 End: 05-03-2024 enteric contrast (will be pr ovided with radiology test) Indications: Small cell lung cancer, unspecified laterality (HCC) For CT CHESTABD/PEL W IVCON Routine order Administer, As Directed One Time Only, via Oral, Rectal, both Oral and Rectal, Enteric Tube, Stoma or Indwelling Catheter, Enteric Contrast as designated per enteric contrast guidelines 1 Each 05/02/2024 05/03/2024 Active Start: 02-01-2024 End: 09-04-2024 enteric contrast (will be pr ovided with radiology test) Indications: Small cell lung cancer, unspecified laterality (HCC) , 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) For CT ABD/PEL W IVCON Routine order Administer, As Directed One Time Only, via Oral, Rectal, both Oral and Rectal, Enteric Tube, Stoma or Indwelling Catheter, Enteric Contrast as designated per enteric contrast guidelines 1 Each 02/01/2024 09/04/2024 Discontinued Start: 02-01-[address] (will be provided with radiology test) Indications: Small cell lung cancer, unspecified laterality (HCC) , 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) For CT ABD/PEL W IVCON Routine order Administer, As Directed One Time Only, via Oral, Rectal, both Oral and Rectal, Enteric Tube, Stoma or Indwelling Catheter, Enteric Contrast as designated per enteric contrast guidelines 1 Each 02/01/2024 Active Start: 02-01-[address] (will be provided with radiology test) Indications: Small cell lung cancer, unspecified laterality (HCC) , 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) For CT ABD/PEL W IVCON Routine order Administer, As Directed One Time Only, via Oral, Rectal, both Oral and Rectal, Enteric Tube, Stoma or Indwelling Catheter, Enteric Contrast as designated per enteric contrast guidelines 1 Each 0 02/01/2024 Active Start: 11-23-2023 End: 11-24-2023 enteric contrast (will be pr ovided with radiology test) Indications: Small cell lung cancer (HCC) , 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) For CT CHESTABD/PEL W IVCON Routine order Administer, As Directed One Time Only, via Oral, Rectal, both Oral and Rectal, Enteric Tube, Stoma or Indwelling Catheter, Enteric Contrast as designated per enteric contrast guidelines 1 Each 0 11/23/2023 11/24/2023 Active Start: 11-01-2023 End: 09-04-2024 enteric contrast (will be pr ovided with radiology test) Indications: Small cell lung cancer (HCC) , 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) For CT ABD/PEL W IVCON Routine order Administer, As Directed One Time Only, via Oral, Rectal, both Oral and Rectal, Enteric Tube, Stoma or Indwelling Catheter, Enteric Contrast as designated per enteric contrast guidelines 1 Each 11/01/2023 09/04/2024 Discontinued Start: 11-01-[address] (will be provided with radiology test) Indications: Small cell lung cancer (HCC) , 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) For CT ABD/PEL W IVCON Routine order Administer, As Directed One Time Only, via Oral, Rectal, both Oral and Rectal, Enteric Tube, Stoma or Indwelling Catheter, Enteric Contrast as designated per enteric contrast guidelines 1 Each 11/01/2023 Active Start: 11-01-[address] (will be provided with radiology test) Indications: Small cell lung cancer (HCC) , 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) For CT ABD/PEL W IVCON Routine order Administer, As Directed One Time Only, via Oral, Rectal, both Oral and Rectal, Enteric Tube, Stoma or Indwelling Catheter, Enteric Contrast as designated per enteric contrast guidelines 1 Each 0 11/01/2023 Active Start: 08-24-2023 End: 12-26-2023 enteric contrast (will be pr ovided with radiology test) Indications: Malignant neoplasm of unspecified part of unspecified bronchus or lung (HCC) , 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) , Small cell lung cancer (HCC) For CT ABD/PEL W IVCON Routine order Administer, As Directed One Time Only, via Oral, Rectal, both Oral and Rectal, Enteric Tube, Stoma or Indwelling Catheter, Enteric Contrast as designated per enteric contrast guidelines 1 Each 0 08/24/2023 12/26/2023 Discontinued (Course of therapy completed) Start: 08-24-[address] (will be provided with radiology test) Indications: Malignant neoplasm of unspecified part of unspecified bronchus or lung (HCC) , 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) , Small cell lung cancer (HCC) For CT ABD/PEL W IVCON Routine order Administer, As Directed One Time Only, via Oral, Rectal, both Oral and Rectal, Enteric Tube, Stoma or Indwelling Catheter, Enteric Contrast as designated per enteric contrast guidelines 1 Each 0 08/24/2023 Active Start: 06-01-2023 End: 06-04-2023 enteric contrast (will be pr ovided with radiology test) Indications: Malignant neoplasm of unspecified part of unspecified bronchus or lung (HCC) , Small cell lung cancer (HCC) For CT CHESTABD/PEL W IVCON Routine order Administer, As Directed One Time Only, via Oral, Rectal, both Oral and Rectal, Enteric Tube, Stoma or Indwelling Catheter, Enteric Contrast as designated per enteric contrast guidelines 1 Each 0 06/01/2023 06/04/2023 Discontinued Start: 06-01-2023 End: 06-02-2023 enteric contrast (will be pr ovided with radiology test) Indications: Malignant neoplasm of unspecified part of unspecified bronchus or lung (HCC) , Small cell lung cancer (HCC) For CT CHESTABD/PEL W IVCON Routine order Administer, As Directed One Time Only, via Oral, Rectal, both Oral and Rectal, Enteric Tube, Stoma or Indwelling Catheter, Enteric Contrast as designated per enteric contrast guidelines 1 Each 0 06/01/2023 06/02/2023 Active Comment on above: For CT CHESTABD/PEL W IVCON Routine order Administer, As Directed One Time Only, via Oral, Rectal, both Oral and Rectal, Enteric Tube, Stoma or Indwelling Catheter, Enteric Contrast as designated per enteric contrast guidelines For CT ABD/PEL W IVC ON Routine order Administer, As Directed One Time Only, via Oral, Rectal, both Oral and Rectal, Enteric Tube, Stoma or Indwelling Catheter, Enteric Contrast as designated per enteric contrast guidelines fluconazole 100 mg oral tablet (20 sources) Azole Antifungal Start: 022 End: take 1 tablet by mouth once daily Diflucan 100 MG Oral Tablet ; 1 Tablet daily for 7 days Quantity: 7 {Tablet} Refills: 0 Ordered: 29-Jun-2022 MD Chinyere Lara Start: 29-Jun-2022 End: 06-Jul-2022 Status: Inactive FLUoxetine 10 mg oral capsule (8 sources) Serotonin Reuptake Inhibitor Start: 008 End: fluoxetine hcl(PROZAC 10 MG CAP) Take one(1) capsule daily. 0 07/02/2008 06/04/2023 Discontinued Comment on above: Take one(1) capsule daily. gabapentin 100 mg oral capsule (20 sources) Anti-epileptic Agent Start: 015 End: take 1 capsule by mouth three times daily as needed for pain GABAPENTIN, 100MG (Oral Capsule) ; 1 (one) Capsule Capsule tid prn shingles pain for 0 days Quantity: 10 {Capsule} Refills: 0 Ordered: 31-Oct-2015 Start: 17-Dec-2014 End: 31-Oct-2015 Status: Inactive hyoscyamine sulfate 0.125 mg oral tablet (20 sources) Start: 018 End: 019 take 1 tablet by mouth every four hours as needed for pain Levsin 0.125 MG Oral Tablet ; 1 (one) Tablet Tablet q 4 hrs prn abdominal pain for 0 days Quantity: 30 {Tablet} Refills: 0 Ordered: 09-Nov-2018 FARSHAD Winter Start: 20-Feb-2018 End: 09-Nov-2018 Status: Inactive iv contrast (will be provided with radiology test) (20 sources) Start: 025 End: 025 inject 1 dose intravenously once iv contrast (will be provided with radiology test) Indications: 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 If Pt. 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 If Pt. 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 Discontinue saline lock post exam. If Pt. has a central line or IVAD, may access for administration according to line specific nursing protocol. Once exam is complete flush line and de-access according to line specific nursing protocol in the CT contrast administration guidelines link. 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 Discontinue saline lock post exam. If Pt. has a central line or IVAD, may access for administration according to line specific nursing protocol. Once exam is complete flush line and de-access according to line specific nursing protocol in the CT contrast administration guidelines link. 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 Neck W IVCON No IV access, insert saline lock prior to the sedation, infusion, injection for imaging exam. Discontinue saline lock post exam. If Pt. has a central line or IVAD, may access for administration according to line specific nursing protocol. Once exam is complete flush line and de-access according to line specific nursing protocol in the CT contrast administration guidelines link. 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 Discontinue saline lock post exam. If Pt. has a central line or IVAD, may access for administration according to line specific nursing protocol. Once exam is complete flush line and de-access according to line specific nursing protocol in the CT contrast administration guidelines link. 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 Discontinue saline lock post exam. If Pt. has a central line or IVAD, may access for administration according to line specific nursing protocol. Once exam is complete flush line and de-access according to line specific nursing protocol in the CT contrast administration guidelines link. 1 each 11/06/2024 Active Start: 08-27-2024 End: 08-28-2024 iv contrast (will be provide d with radiology test) MRI LSP Inject, intravenously, once for 1 dose. No IV access, insert saline lock prior to the beginning of sedation, infusion, injection of imaging exam. Discontinue saline lock post exam. If Pt. has a central line or IVAD, may access for administration according to line specific nursing protocol. Once exam is complete flush line and de-access according to line specific nursing protocol in the MR contrast administration guidelines link. 1 Each 08/27/2024 08/28/2024 Active Start: 08-27-2024 End: 08-27-2024 iv contrast (will be provide d with radiology test) Indications: Chronic midline low back pain without sciatica , Small cell lung cancer, unspecified laterality (HCC) MRI LSP Inject, intravenously, once for 1 dose. No IV access, insert saline lock prior to the beginning of sedation, infusion, injection of imaging exam. Discontinue saline lock post exam. If Pt. has a central line or IVAD, may access for administration according to line specific nursing protocol. Once exam is complete flush line and de-access according to line specific nursing protocol in the MR contrast administration guidelines link. 1 Each 08/27/2024 08/27/2024 Discontinued Start: 08-02-2024 End: 08-03-2024 iv contrast (will be provide d with radiology test) Indications: Encounter for follow-up surveillance of lung cancer , Small cell lung cancer, unspecified laterality (HCC) , Dyspnea and respiratory abnormalities CT Chest ABD/PEL-Inject, intravenously, once for 1 dose.No IV access, insert saline lock prior to the beginning of sedation, infusion, injection of imaging exam. Discontinue saline lock post exam. If Pt. has a central line or IVAD, may access for administration according to line specific nursing protocol. Once exam is complete flush line and de-access according to line specific nursing protocol in the CT contrast administration guidelines link. 1 Each 08/02/2024 08/03/2024 Active Start: 08-02-2024 End: 08-02-2024 inject 1 dose intravenously once for dyspnea, then inject 1 dose intravenously once for dyspnea iv contrast (will be provided with radiology test) Indications: Encounter for follow-up surveillance of lung cancer , Small cell lung cancer, unspecified laterality (HCC) , Dyspnea and respiratory abnormalities Inject 1 Each intravenously one time only for [address] Neck W IVCON No IV access, insert saline lock prior to the sedation, infusion, injection for imaging exam. Discontinue saline lock post exam. If Pt. has a central line or IVAD, may access for administration according to line specific nursing protocol. Once exam is complete flush line and de-access according to line specific nursing protocol in the CT contrast administration guidelines link. 1 Each 08/02/2024 08/02/2024 Active Start: 05-02-2024 End: 05-03-2024 iv contrast (will be provide d with radiology test) Indications: Small cell lung cancer, unspecified laterality (HCC) CT Chest ABD/PEL-Inject, intravenously, once for 1 dose.No IV access, insert saline lock prior to the beginning of sedation, infusion, injection of imaging exam. Discontinue saline lock post exam. If Pt. has a central line or IVAD, may access for administration according to line specific nursing protocol. Once exam is complete flush line and de-access according to line specific nursing protocol in the CT contrast administration guidelines link. 1 Each 05/02/2024 05/03/2024 Active Start: 05-02-2024 End: 05-02-2024 inject 1 dose intravenously once, then inject 1 dose intravenously once iv contrast (will be provided with radiology test) Inject 1 Each intravenously one time only for [address] Neck W IVCON No IV access, insert saline lock prior to the sedation, infusion, injection for imaging exam. Discontinue saline lock post exam. If Pt. has a central line or IVAD, may access for administration according to line specific nursing protocol. Once exam is complete flush line and de-access according to line specific nursing protocol in the CT contrast administration guidelines link. 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 Discontinue saline lock post exam. If Pt. has a central line or IVAD, may access for administration according to line specific nursing protocol. Once exam is complete flush line and de-access according to line specific nursing protocol in the CT contrast administration guidelines link. 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 Discontinue saline lock post exam. If Pt. has a central line or IVAD, may access for administration according to line specific nursing protocol. Once exam is complete flush line and de-access according to line specific nursing protocol in the CT contrast administration guidelines link. 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 Discontinue saline lock post exam. If Pt. has a central line or IVAD, may access for administration according to line specific nursing protocol. Once exam is complete flush line and de-access according to line specific nursing protocol in the CT contrast administration guidelines link. 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 Discontinue saline lock post exam. If Pt. has a central line or IVAD, may access for administration according to line specific nursing protocol. Once exam is complete flush line and de-access according to line specific nursing protocol in the CT contrast administration guidelines link. 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 Discontinue saline lock post exam. If Pt. has a central line or IVAD, may access for administration according to line specific nursing protocol. Once exam is complete flush line and de-access according to line specific nursing protocol in the CT contrast administration guidelines link. 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 Discontinue saline lock post exam. If Pt. has a central line or IVAD, may access for administration according to line specific nursing protocol. Once exam is complete flush line and de-access according to line specific nursing protocol in the CT contrast administration guidelines link. 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 If Pt. 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 Discontinue saline lock post exam. If Pt. has a central line or IVAD, may access for administration according to line specific nursing protocol. Once exam is complete flush line and de-access according to line specific nursing protocol in the CT contrast administration guidelines link. 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 Discontinue saline lock post exam. If Pt. has a central line or IVAD, may access for administration according to line specific nursing protocol. Once exam is complete flush line and de-access according to line specific nursing protocol in the CT contrast administration guidelines link. 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 Discontinue saline lock post exam. If Pt. has a central line or IVAD, may access for administration according to line specific nursing protocol. Once exam is complete flush line and de-access according to line specific nursing protocol in the CT contrast administration guidelines link. 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 Discontinue saline lock post exam. If Pt. has a central line or IVAD, may access for administration according to line specific nursing protocol. Once exam is complete flush line and de-access according to line specific nursing protocol in the CT contrast administration guidelines link. 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 Discontinue saline lock post exam. If Pt. has a central line or IVAD, may access for administration according to line specific nursing protocol. Once exam is complete flush line and de-access according to line specific nursing protocol in the CT contrast administration guidelines link. 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 Discontinue saline lock post exam. If Pt. has a central line or IVAD, may access for administration according to line specific nursing protocol. Once exam is complete flush line and de-access according to line specific nursing protocol in the CT contrast administration guidelines link. 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 Discontinue saline lock post exam. If Pt. has a central line or IVAD, may access for administration according to line specific nursing protocol. Once exam is complete flush line and de-access according to line specific nursing protocol in the CT contrast administration guidelines link. 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 Neck W IVCON No IV access, insert saline lock prior to the sedation, infusion, injection for imaging exam. Discontinue saline lock post exam. If Pt. has a central line or IVAD, may access for administration according to line specific nursing protocol. Once exam is complete flush line and de-access according to line specific nursing protocol in the CT contrast administration guidelines link. 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 Discontinue saline lock post exam. If Pt. has a central line or IVAD, may access for administration according to line specific nursing protocol. Once exam is complete flush line and de-access according to line specific nursing protocol in the CT contrast administration guidelines link. 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 Discontinue saline lock post exam. If Pt. has a central line or IVAD, may access for administration according to line specific nursing protocol. Once exam is complete flush line and de-access according to line specific nursing protocol in the CT contrast administration guidelines link. 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 If Pt. 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 Neck W IVCON No IV access, insert saline lock prior to the sedation, infusion, injection for imaging exam. Discontinue saline lock post exam. If Pt. has a central line or IVAD, may access for administration according to line specific nursing protocol. Once exam is complete flush line and de-access according to line specific nursing protocol in the CT contrast administration guidelines link. 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 Discontinue saline lock post exam. If Pt. has a central line or IVAD, may access for administration according to line specific nursing protocol. Once exam is complete flush line and de-access according to line specific nursing protocol in the CT contrast administration guidelines link. 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 Discontinue saline lock post exam. If Pt. has a central line or IVAD, may access for administration according to line specific nursing protocol. Once exam is complete flush line and de-access according to line specific nursing protocol in the CT contrast administration guidelines link. 1 Each 0 08/24/2023 Active Start: 06-01-2023 End: 06-04-2023 iv contrast (will be provide d with radiology test) Indications: Malignant neoplasm of unspecified part of unspecified bronchus or lung (HCC) , Small cell lung cancer (HCC) CT Chest ABD/PEL-Inject, intravenously, once for 1 dose.No IV access, insert saline lock prior to the beginning of sedation, infusion, injection of imaging exam. Discontinue saline lock post exam. If Pt. has a central line or IVAD, may access for administration according to line specific nursing protocol. Once exam is complete flush line and de-access according to line specific nursing protocol in the CT contrast administration guidelines link. 1 Each 0 06/01/2023 06/04/2023 Discontinued Start: 06-01-2023 End: 06-04-2023 inject 1 dose intravenously once iv contrast (will be provided with radiology test) Indications: Malignant neoplasm of unspecified part of unspecified bronchus or lung (HCC) , Small cell lung cancer (HCC) MRI Brain Inject, intravenously, once for 1 dose.No IV access, insert saline lock prior to beginning of sedation, infusion, injection of imaging exam.Discontinue saline lock post exam. If Pt. has a central line or IVAD, may access for administration according to line specific nursing protocol.Once exam is complete flush line and de-access according to line specific nursing protocol in the MR contrast administration guidelines link 1 Each 0 06/01/2023 06/04/2023 Discontinued Start: 06-01-2023 End: 06-02-2023 iv contrast (will be provide d with radiology test) Indications: Malignant neoplasm of unspecified part of unspecified bronchus or lung (HCC) , Small cell lung cancer (HCC) CT Chest ABD/PEL-Inject, intravenously, once for 1 dose.No IV access, insert saline lock prior to the beginning of sedation, infusion, injection of imaging exam. Discontinue saline lock post exam. If Pt. has a central line or IVAD, may access for administration according to line specific nursing protocol. Once exam is complete flush line and de-access according to line specific nursing protocol in the CT contrast administration guidelines link. 1 Each 0 06/01/2023 06/02/2023 Active Start: 06-01-2023 End: 06-02-2023 inject 1 dose intravenously once iv contrast (will be provided with radiology test) Indications: Malignant neoplasm of unspecified part of unspecified bronchus or lung (HCC) , Small cell lung cancer (HCC) MRI Brain Inject, intravenously, once for 1 dose.No IV access, insert saline lock prior to beginning of sedation, infusion, injection of imaging exam.Discontinue saline lock post exam. If Pt. has a central line or IVAD, may access for administration according to line specific nursing protocol.Once exam is complete flush line and de-access according to line specific nursing protocol in the MR contrast administration guidelines link 1 Each 0 06/01/2023 06/02/2023 Active Comment on above: CT Chest ABD/PEL-Inj ect, intravenously, once for 1 dose.No IV access, insert saline lock prior to the beginning of sedation, infusion, injection of imaging exam. Discontinue saline lock post exam. If Pt. has a central line or IVAD, may access for administration according to line specific nursing protocol. Once exam is complete flush line and de-access according to line specific nursing protocol in the CT contrast administration guidelines link. MRI Brain Inject, in travenously, once for 1 dose.No IV access, insert saline lock prior to beginning of sedation, infusion, injection of imaging exam.Discontinue saline lock post exam. If Pt. has a central line or IVAD, may access for administration according to line specific nursing protocol.Once exam is complete flush line and de-access according to line specific nursing protocol in the MR contrast administration guidelines link Inject 1 Each intrav enously one time only for [address] Neck W IVCON No IV access, insert saline lock prior to the sedation, infusion, injection for imaging exam. Discontinue saline lock post exam. If Pt. has a central line or IVAD, may access for administration according to line specific nursing protocol. Once exam is complete flush line and de-access according to line specific nursing protocol in the CT contrast administration guidelines link. CT ABD/PEL -Inject, intravenously, once for 1 dose.No IV access, insert saline lock prior to the beginning of sedation, infusion, injection of imaging exam. Discontinue saline lock post exam. If Pt. has a central line or IVAD, may access for administration according to line specific nursing protocol. Once exam is complete flush line and de-access according to line specific nursing protocol in the CT contrast administration guidelines link. CT Chest W -Inject, intravenously, once for 1 dose.No IV access, insert saline lock prior to the beginning of sedation, infusion, injection of imaging exam. Discontinue saline lock post exam. If Pt. has a central line or IVAD, may access for administration according to line specific nursing protocol. Once exam is complete flush line and de-access according to line specific nursing protocol in the CT contrast administration guidelines link. ketoconazole 20 mg/ml topical cream (20 sources) Azole Antifungal Start : 06-29 End: 05-09 ketoconazole 2 % topical cream ; 1 (one) application(s) twice daily for 0 days Quantity: 60 {Gram} Refills: 0 Ordered: 09-May-2023 ANGELLA Ng Werner Mendieta Start: 29-Jun-2022 End: 09-May-2023 Status: Inactive lisinopril 10 mg oral tablet (3 sources) Angiotensin Converting Enzyme Inhibitor Start : 06-22 End: 08-17 take 1 tablet by mouth once daily lisinopril (ZESTRIL) 10 mg tablet Take 1 tablet by mouth once daily. 30 tablet 2 06/22/2023 08/17/2023 Discontinued Comment on above: Take 1 tablet by valente th once daily. magnesium gluconate 550 mg oral tablet (11 sources) End: 09-04 take 0.5 tablet by mouth twice daily Magnesium Gluconate 30 mg (550 mg) tab Take 0.5 tablets by mouth two times a day. 09/04/2024 Discontinued methylPREDNISolone (1 source) Corticosteroid Start : 09-04 End: 09-10 methylPREDNISolone (MEDROL DOSE-PACK) 4 mg Dose-Pack Take as instructed per package. 21 tablet 09/04/2024 09/10/2024 metroNIDAZOLE 500 mg oral tablet (20 sources) Nitroimidazole Antimicrobial Start : 10-26 End: 11-05 take 1 tablet by mouth twice daily MetroNIDAZOLE 500 MG Oral Tablet ; 1 (one) Tablet bid for 10 days Quantity: 20 {Tablet} Refills: 0 Ordered: 12-Jan-2017 MD Chinyere Lara Start: 26-Oct-2016 End: 05-Nov-2016 Status: Inactive naproxen 500 mg oral tablet (6 sources) Nonsteroidal Anti-inflammatory Drug Start : 11-14 End: 08-18 take 1 tablet by mouth twice daily as needed for pain Naproxen 500 MG tablet Discontinued 500 mg PO TWICE DAILY NEEDED as needed for Pain January 19, 2019 9:05am August 18, 2023 9:06am oxyCODONE hydrochloride 5 mg oral tablet (20 sources) Opioid Agonist Start : 11-10 End: 10-31 take 1-2 tablets by mouth every six hours OXYCODONE HCL, 5MG (Oral Tablet) ; 1-2 Tablet q 6hrs pr n for 0 days Quantity: 40 {Tablet} Refills: 0 Ordered: 31-Oct-2012 Start: 10-Nov-2010 End: 31-Oct-2012 Status: Inactive predniSONE 20 mg oral tablet (20 sources) Start : 01-12 End: 02-21 take 1 tablet by mouth three times daily, then take 1 tablet by mouth twice daily, then take 1 tablet by mouth once daily, then take 0.5 tablet by mouth once daily predniSONE 20 MG Oral Tablet ; 1 (one) Tablet as directed for 0 days Quantity: 20 {Tablet} Refills: 0 Ordered: 21-Feb-2022 ANGELLA Ng Start: 12-Jan-2022 End: 21-Feb-2022 Status: Inactive Comments: Take 1 tab tid for 3 days thenTake 1 tab bid for 3 days thenTake 1 tab qd for 3 days thenTake 1/2 tab qd for 4 days. Start: 04-05-2019 End: 07-15-2019 take 3 tablets by mouth once daily, then take 2 tablets by mouth once daily, then take 1 tablet by mouth once daily, then take 0.5 tablet by mouth once daily predniSONE 20 MG Oral Tablet ; Tablet for 0 days Quantity: 20 {Tablet} Refills: 0 Ordered: 15-Jul-2019 Hernandez, ANGELLA Werner Mendieta Start: 05-Apr-2019 End: 15-Jul-2019 Status: Inactive Comments: Take 3tabs qd for 3 days thenTake 2tabs qd for 3 days thenTake 1tab qd for 3 days thenTake 1/2tab qd for 4 days. Start: 01-19-2019 End: 08-18-2023 take 2 tablets by mouth once daily at mealtime Prednisone 20 MG tablet Discontinued 40 mg PO DAILY January 18, 2019 11:00pm August 18, 2023 9:06am With food Start: 01-19-2019 End: 08-18-2023 take 40 mg by mouth once daily at mealtime Prednisone Discontinued 40 MG PO DAILY January 18, 2019 11:00pm August 18, 2023 9:06am With food Comment on above: Take 3tabs qd for 3 days thenTake 2tabs qd for 3 days thenTake 1tab qd for 3 days thenTake 1/2tab qd for 4 days. Take 1 tab tid for 3 days thenTake 1 tab bid for 3 days thenTake 1 tab qd for 3 days thenTake 1/2 tab qd for 4 days. regadenoson 0.4 mg injection (LEXISCAN) (2 sources) Start: 03-18-2024 End: 03-18-2024 regadenoson 0.4 mg injection (LEXISCAN) Start: 03-18-2024 End: 03-18-2024 0.4 mg, INTRAVENOUS, ONCE, 1 dose, On Mon03/18/24 at 1130, Give 0.4 mg (5 mL) over ~10 seconds, followed immediately by a 5 mL saline flush. Wait 10-20 seconds, then administer the radionuclide myocardial perfusion imaging agent. sertraline 100 mg oral tablet (20 sources) Serotonin Reuptake Inhibitor Start: 09-17-2010 End: 10-31-2012 take 0.5 tablet by mouth once daily ZOLOFT, 100MG (Oral Tablet) ; 1/2 Tablet daily for 0 days Quantity: 15 {Tablet} Refills: 5 Ordered: 31-Oct-2012 Start: 17-Sep-2010 End: 31-Oct-2012 Status: Inactive sucralfate 100 mg/ml oral suspension (20 sources) Aluminum Complex Start: 08-18-2023 End: 03-05-2024 take 1 mL by mouth every six hours Sucralfate (Carafate) 100 mg/mL suspension Discontinued 10 mL PO EVERY 6 HOURS August 18, 2023 12:00am March 05, 2024 6:49pm Start: 07-04-2023 End: 12-26-2023 take 10 mL by mouth four times daily sucralfate (CARAFATE) 100 mg/mL suspension Take 10 mL by mouth four times daily. 500 mL 1 07/04/2023 12/26/2023 Discontinued (Course of therapy completed) Comment on above: Take 10 mL by mouth four times daily. sulfamethoxazole 800 mg / trimethoprim 160 mg oral tablet (20 sources) Dihydrofolate Reductase Inhibitor Antibacterial, Sulfonamide Antimicrobial Start: 07-10-19 End: 07-13-19 22 take 1 tablet by mouth twice daily Bactrim DS 800-160 MG Oral Tablet ; 1 (one) Tablet BID for 3 days Quantity: 6 {Tablet} Refills: 0 Ordered: 10-Jul-2021 CATALINO Rodrigues Start: 10-Jul-2021 End: 13-Jul-2021 Status: Inactive traMADol hydrochloride 50 mg oral tablet (20 sources) Opioid Agonist Start: 02-27-20 12 End: 11-01-19 13 take 1 tablet by mouth every four to six hours as needed ULTRAM, 50MG (Oral Tablet) ; 1 (one) Tablet every 4-6 hours as needed for 0 days Quantity: 30 {Tablet} Refills: 0 Ordered: 31-Oct-2012 Start: 27-Feb-2012 End: 31-Oct-2012 Status: Inactive Comments: Medication taken as needed. wm Comment on above: Medication taken as needed. Medication taken as needed. wm Problems Active Problems Problem Classification Problem Date Documented Da te Episodic/Chronic Abdominal hernia (20 sources) Hiatal hernia; Translations: [Diaphragmatic hernia without obstruction or gangrene] 05-09-2023 Episodic Acute and unspecified renal failure (4 sources) Acute renal failure syndrome; Translations: [Acute kidney failure, unspecified] Onset: 5 08-22-2023 Episodic Administrative/social admission (20 sources) Patient encounter status; Translations: [Counseling, unspecified] Onset: 5 06-07-2023 Episodic Allergic reactions (20 sources) Eczema; Translations: [Dermatitis, unspecified] 09-13-2022 Episodic Anxiety disorders (20 sources) Anxiety disorder due to a general medical condition; Translations: [Generalized anxiety disorder] 06-01-2023 Chronic Cancer of bronchus; lung (20 sources) Small cell carcinoma of lung; Translations: [Malignant neoplasm of unspecified part of unspecified bronchus or lung] Onset: 3 06-01-2023 Chronic Cardiac dysrhythmias (5 sources) Supraventricular tachycardia; Translations: [SVT (supraventricular tachycardia) (HCC)] Onset: 4 02-20-2024 Chronic Chronic kidney disease (1 source) Chronic kidney disease; Translations: [Stage 3a chronic kidney disease (HCC)] Onset: 5 Chronic obstructive pulmonary disease and bronchiectasis (20 sources) Chronic obstructive lung disease; Translations: [Chronic obstructive pulmonary disease, unspecified] Onset: 5 05-09-2023 Chronic Chronic obstructive pulmonary disease and bronchiectasis (20 sources) Bronchitis; Translations: [Bronchitis, not specified as acute or chronic] 02-21-2022 Episodic Complications of surgical procedures or medical care (20 sources) Anemia due to antineoplastic chemotherapy; 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] Onset: 4 08-17-2023 Chronic Conditions associated with dizziness or vertigo (20 sources) Vertigo; Translations: [Dizziness and giddiness] 10-19-2012 Episodic Disorders of teeth and jaw (1 source) Dental caries, unspecified; Translations: [Dental caries] Onset: Episodic Fluid and electrolyte disorders (1 source) Dehydration; Translations: [Dehydration] 03-13-2024 Episodic Genitourinary symptoms and ill-defined conditions (20 sources) Urinary symptoms ; Translations: [Unspecified symptoms and signs involving the genitourinary system] 07-21-2021 Episodic Headache; including migraine (20 sources) Migraine, unspecified, without mention of intractable migraine without mention of status migrainosus 09-17-2010 Chronic Headache; including migraine (20 sources) Headache; Translations: [Headache] 05-25-2020 Episodic Immunizations and screening for infectious disease (20 sources) Suspected disease caused by 2019nCoV; Translations: [Contact with or exposure to other viral diseases] 06-02-2021 Episodic Malaise and fatigue (20 sources) Fatigue; Translations: [Other fatigue] Onset: 5 05-09-2023 Episodic Malignant neoplasm without specification of site (20 sources) Malignant neoplastic disease; Translations: [Malignant (primary) neoplasm, unspecified] 06-21-2023 Chronic Menopausal disorders (20 sources) Primary ovarian failure; Translations: [Asymptomatic premature menopause] 05-09-2023 Chronic Miscellaneous mental health disorders (2 sources) Confusional state 02-23-2025 Chronic Mood disorders (20 sources) Depressive disorder; Translations: [Depressive disorder, not elsewhere classified] 11-16-2021 Chronic Mycoses (20 sources) Tinea corporis; Translations: [Tinea corporis] 05-09-2023 Episodic Non-Hodgkin`s lymphoma (1 source) Malignant lymphoma; Translations: [Non-Hodgkin lymphoma, unspecified, unspecified site] 12-13-2023 Chronic Nonspecific chest pain (20 sources) Chest pain; Translations: [Chest pain, unspecified] 05-09-2023 Episodic Nutritional deficiencies (20 sources) Deficiency of macronutrients; Translations: [Mild protein-calorie malnutrition] Onset: 4 07-04-2023 Chronic Osteoarthritis (20 sources) Osteoarthritis of right knee joint; Translations: [Unilateral primary osteoarthritis, right knee] Onset: 5 04-30-2018 Chronic Osteoporosis (1 source) Age-related osteoporosis without current pathological fracture; Translations: [Age-related osteoporosis without current pathological fracture] Onset: Chronic Other aftercare (20 sources) Long-term (current) use of other medications 12-22-2010 Episodic Other aftercare (2 sources) Radiotherapy follow-up; Translations: [Encounter for follow-up examination after completed treatment for conditions other than malignant neoplasm] 08-16-2023 Episodic Other aftercare (3 sources) History of malignant neoplasm of thoracic cavity structure; Translations: [Encounter for follow-up examination after completed treatment for malignant neoplasm] 08-02-2024 Episodic Other circulatory disease (5 sources) Orthostatic hypotension; Translations: [Orthostatic hypotension] 12-27-2023 Episodic Other circulatory disease (1 source) Elevated blood-pressure reading, without diagnosis of hypertension; Translations: [Elevated blood pressure reading without diagnosis of hypertension] Onset: 5 Episodic Other connective tissue disease (20 sources) Plantar fasciitis; Translations: [Plantar fascial fibromatosis] 05-09-2023 Episodic Other connective tissue disease (20 sources) Lateral epicondylitis; Translations: [Lateral epicondylitis, unspecified elbow] 08-31-2016 Episodic Other fractures (20 sources) Closed fracture of five ribs; Translations: [Multiple fractures of ribs, unspecified side, initial encounter for closed fracture] 10-13-2010 Episodic Other gastrointestinal disorders (20 sources) Irritable bowel syndrome; Translations: [Irritable bowel syndrome without diarrhea] 05-09-2023 Chronic Other gastrointestinal disorders (20 sources) Incontinence of feces; Translations: [Full incontinence of feces] 05-09-2023 Episodic Other injuries and conditions due to external causes (20 sources) Injury of left wrist; Translations: [Unspecified injury of left wrist, hand and finger(s), initial encounter] 11-05-2019 Episodic Other injuries and conditions due to external causes (20 sources) Injury of left ankle; Translations: [Unspecified injury of left ankle, initial encounter] 07-15-2019 Episodic Other lower respiratory disease (20 sources) Lower respiratory tract infection; Translations: [Unspecified acute lower respiratory infection] 05-09-2023 Episodic Other lower respiratory disease (20 sources) Respiratory tract infection; Translations: [Other specified respiratory disorders] 09-24-2019 Episodic Other lower respiratory disease (6 sources) Dyspnea; Translations: [Dyspnea, unspecified] 05-02-2024 Episodic Other nervous system disorders (1 source) Neuropathy caused by chemical substance; Translations: [Drug-induced polyneuropathy] 11-01-2023 Chronic Other nervous system disorders (1 source) Other chronic pain; Translations: [Chronic midline low back pain without sciatica] Onset: 5 Chronic Other nervous system disorders (1 source) Paresthesia of skin; Translations: [Paresthesia of skin] Onset: 5 Episodic Other nervous system disorders (1 source) Pain in limb - multiple; Translations: [Paresthesia of skin] 04-30-2025 Episodic Other non-traumatic joint disorders (20 sources) Pain in right knee; Translations: [Pain in joint, lower leg] 03-07-2018 Episodic Other non-traumatic joint disorders (20 sources) Ankle pain; Translations: [Pain in right ankle and joints of right foot] 10-01-2013 Episodic Other non-traumatic joint disorders (20 sources) Pain in joint, forearm 02-27-2012 Episodic Other nutritional; endocrine; and metabolic disorders (1 source) Body mass index (BMI) 34.0-34.9, adult; Translations: [Class 1 obesity without serious comorbidity with body mass index (BMI) of 34.0 to 34.9 in adult, unspecified obesity type] Onset: 5 Chronic Other nutritional; endocrine; and metabolic disorders (20 sources) Overweight in adulthood with body mass index of 25 or more but less than 30; Translations: [Body mass index (BMI) 27.0-27.9, adult] 10-04-2017 Episodic Other nutritional; endocrine; and metabolic disorders (5 sources) Body mass index 25-29 - overweight; Translations: [Body mass index (BMI) 27.0-27.9, adult] 10-04-2017 Episodic Other screening for suspected conditions (not mental disorders or infectious disease) (20 sources) Screening for lipoid disorders; Translations: [Encounter for screening mammogram for malignant neoplasm of breast] Onset: 5 10-31-2012 Episodic Other skin disorders (20 sources) Mass of neck; Translations: [Localized swelling, mass and lump, neck] 05-15-2023 Episodic Other skin disorders (20 sources) Eruption; Translations: [Rash and other nonspecific skin eruption] 01-29-2021 Episodic Other skin disorders (20 sources) Loss of hair; Translations: [Nonscarring hair loss, unspecified] 11-09-2018 Episodic Other skin disorders (20 sources) Skin lesion; Translations: [Disorder of the skin and subcutaneous tissue, unspecified] 08-31-2012 Episodic Other upper respiratory infections (20 sources) Sinusitis; Translations: [Chronic sinusitis, unspecified] 06-06-2022 Chronic Other upper respiratory infections (20 sources) Upper respiratory infection; Translations: [Acute upper respiratory infection, unspecified] 03-12-2020 Episodic Pneumonia (except that caused by tuberculosis or sexually transmitted disease) (1 source) Pneumonia; Translations: [Pneumonia, unspecified organism] 12-21-2023 Episodic Residual codes; unclassified (20 sources) Tobacco use and exposure - finding; Translations: [Tobacco use] 05-09-2023 Episodic Residual codes; unclassified (20 sources) Influenza vaccination declined; Translations: [Immunization not carried out because of patient refusal] 03-25-2016 Episodic Residual codes; unclassified (4 sources) Amnesia; Translations: [Other amnesia] 02-23-2025 Episodic Residual codes; unclassified (2 sources) Confusional state; Translations: [Disorientation, unspecified] 02-20-2025 Episodic Residual codes; unclassified (2 sources) Other amnesia; Translations: [Short-term memory loss] Onset: 5 Episodic Residual codes; unclassified (1 source) Disorientation, unspecified; Translations: [Confusion] Onset: 5 Episodic Secondary malignancies (20 sources) Secondary malignant neoplasm of supraclavicular lymph nodes; Translations: [Secondary and unspecified malignant neoplasm of lymph nodes of head, face and neck] Onset: 3 06-02-2023 Chronic Secondary malignancies (20 sources) Neoplasm of lymph node; Translations: [Secondary and unspecified malignant neoplasm of lymph node, unspecified] 06-05-2023 Chronic Secondary malignancies (2 sources) Secondary and unspecified malignant neoplasm of lymph nodes of head, face and neck; Translations: [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 Unclassified (20 sources) Number of Children 01-12-2022 Comment on above: 3. Unclassified (20 sources) Number of Pregnancies 01-12-2022 Comment on above: 3. Unclassified (20 sources) Vaginal deliveries 01-12-2022 Comment on above: 1. Unclassified (20 sources) Chest pain - The onset of the pain has been acute and has been occurring in a persistent pattern for 1 week. The pain is described as a mild to moderate dull ache. The pain is described as being located in the right chest and does not radiate. There are no precipitating factors. The symptoms have no aggravating factors. The symptoms have been associated with dizziness (light headed). Note for Chest pain: Complains of shortness of breath and extreme fatigue. She was very concerned about anemia. Fatigue is her main concern. cardiology has evaluated her for CP in the past. She admits to high stress but no new stressors. 11-15-2021 Unclassified (20 sources) Back pain - The onset of the back pain has been acute and has been occurring in a persistent pattern for 3 days. The course has been constant. The pain is characterized as a dull ache. The pain is located in the lower back (left) and does not radiate. There are no precipitating factors. The symptoms are relieved by lying down. The pain has been associated with chills and fever, while there has been no associated abdominal pain, arthritis of peripheral joints, back stiffness, bladder dysfunction, dysmenorrhea, dysuria, flank pain, hip pain, history of myelography, history of back surgery, history of disc prolapse, history of malignancy, incontinence of stool, incontinence of urine, leg weakness, menorrhagia, paresthesias in leg, trauma, urethral discharge, use of anti-coagulants, use of corticosteroids or vaginal discharge. Note for Back pain: Started with headache on Monday, Monday began nausea, chills, body aches and cough. Covid and Flu negative on Monday. 07-09-2021 Unclassified (20 sources) Cold Symptoms - Symptoms include nasal congestion, runny nose, productive cough, chills and headache, but do not include sneezing, ear pain, ear fullness, sore throat, scratchy throat, fever, general malaise or facial pain. The onset was 9 day(s) ago. The symptoms occur constantly. Current treatment includes non-prescription cold medication and cough suppressants. The patient has not been exposed to an individual with similar symptoms. Note for Upper respiratory infection: [facility] test yesterday [facility] was [facility], but worried as exp date was 08/202006-02-2021 Unclassified (20 sources) Follow up diagnostic procedure results - Diagnostic tests performed on : (10/08/2020) include other (Spirometry). Current symptoms include cough (mostly dry, sometimes will be productive), wheezing and other (shortness of breath). Note for Diagnostic procedure results follow-up: reviewed by [facility] 10-09-2020 Unclassified (20 sources) Well Adult, female - The patient feels well with no complaints, has good energy level and is sleeping well. The patient has a balanced diet and takes no supplemental vitamins & iron. The patient exercises none (active lifestyle). The patient sleeps 6 hours per night. Note for Well Adult, female: Complains of wart in anal area. Would like to have wart removed today, has had [employer] SAL[employer] DIRECT[employer] remove it in past. 06-16-2015 Unclassified (20 sources) Well Adult, female - The patient feels well with no complaints (Pt here for wellness physical. No record of immunizations. Pt states that her abdominal pain is much better. Using Levsin PRN. She weaned herself off the Bupropion 5 months ago and doing well.). The first day of the last menstrual period was : (Had hysterectomy in 2000- April. Still has both ovaries.). The patient is not using any method of contraception at this time. The patient has a balanced diet and takes no supplemental vitamins & iron. The patient exercises none (but active life style.). The patient sleeps 6 hours per night. Note for Well Adult, female: reviewed by [facility] 12-30-2013 Unclassified (2 sources) Autogenerated Problem Onset: 5 02-20-2025 Unclassified (1 source) Class 1 obesity without serious comorbidity with body mass index (BMI) of 34.0 to 34.9 in adult, unspecified obesity type; Translations: [Class 1 obesity without serious comorbidity with body mass index (BMI) of 34.0 to 34.9 in adult, unspecified obesity type] Onset: 5 Unclassified (1 source) Chronic midline low back pain without sciatica; Translations: [Chronic midline low back pain without sciatica] Onset: 5 Unclassified (1 source) Acute right-sided low back pain without sciatica; Translations: [Acute right-sided low back pain without sciatica] Onset: 4 Unclassified (1 source) Physical Therapy Onset: Urinary tract infections (20 sources) Urinary tract infectious disease; Translations: [Urinary tract infection, site not specified] 07-09-2021 Episodic Viral infection (20 sources) Anal warts; Translations: [Anogenital (venereal) warts] 06-16-2015 Episodic Past or Other Problems Problem Classification Problem Date Documented Date Episodic/Chronic Abdominal pain (20 sources) Left lower quadrant pain; Translations: [Left lower quadrant pain] Onset: 05-14-2024 10-26-2016 Episodic Cancer of bronchus; lung (1 source) Personal history of other malignant neoplasm of bronchus and lung; Translations: [Encounter for follow-up surveillance of lung cancer] Onset: 10-30-2024 Episodic Other aftercare (1 source) Encounter for follow-up examination after completed treatment for malignant neoplasm; Translations: [Encounter for follow-up surveillance of lung cancer] Onset: 10-30-2024 Episodic Other lower respiratory disease (1 source) Dyspnea, unspecified; Translations: [Dyspnea and respiratory abnormalities] Onset: 10-30-2024 Episodic Other lower respiratory disease (1 source) Other abnormalities of breathing; Translations: [Dyspnea and respiratory abnormalities] Onset: 10-30-2024 Episodic Spondylosis; intervertebral disc disorders; other back problems (20 sources) Low back pain; Translations: [Lumbago] Onset: 06-11-2024 04-05-2019 Episodic Unclassified (1 source) OTHER CERVICAL DISC DISPLACEMENT Onset: 03-10-2017 Unclassified (20 sources) Neck lump 05-09-2023 Unclassified (20 sources) bowel incontinence - leakage when passing gas. C/O pressure while urinating. sx present for a few months but not worsening. 09-13-2022 Unclassified (20 sources) [ADDITIONAL REASON] Rash - The onset of the rash has been gradual and has been occurring in a persistent pattern for 1 month. The course has been constant. The rash is characterized as red. It spread to the trunk. There has been associated itching. Note for Rash: reviewed by [facility] 09-13-2022 Unclassified (20 sources) Rash - The onset of the rash has been acute and has been occurring in an intermittent pattern for 3 weeks. The course has been increasing. The rash is characterized as red. The rash was first seen on the face. There has been no progression. There has been associated itching. Note for Rash: She also c/o vag itching since recent ATBx tx. 06-29-2022 Unclassified (20 sources) Cold Symptoms - Symptoms include sneezing, nasal congestion, runny nose, ear fullness, sore throat (last week), dry cough, chills, general malaise and headache. The onset was sudden 1 week(s) ago. The symptoms occur constantly. The patient describes this as moderate in severity and unchanged. Current treatment includes non-prescription cold medication. Note for Upper respiratory infection: reviewed by [facility] 06-06-2022 Unclassified (20 sources) Foot pain - The pain is in the left foot (both feet painful, left side is worse.). The foot pain has been occurring in a persistent pattern for 3 months. The course has been worsening. The pain is moderate to severe. Note for Foot pain: Pain on bottom of feet. Feet feel cold. Has numbness in both feet and toes. Pain is also in the heel. reviewed by [facility] 04-04-2022 Unclassified (20 sources) Cold Symptoms - Symptoms include nasal congestion, sore throat, dry cough (some shortness of breath), chills, general malaise and headache, but do not include ear pain or fever. The onset was sudden 4 day(s) ago. The symptoms occur constantly. The patient describes this as moderate in severity and worsening. Current treatment includes non-prescription cold medication. Note for Upper respiratory infection: Complains of increased fatigue. reviewed by [facility] 02-21-2022 Unclassified (20 sources) Breathing trouble - The onset of the breathing trouble has been acute and has been occurring in a persistent pattern for 1 week. It is described as shortness of breath. The breathing trouble occurs with normal activities. Note for Breathing trouble: Started off with a headache and fever. She has been diagnosed presumptively w COPD as well, has not had PFTs. Continues to smoke . 01-12-2022 Unclassified (20 sources) Rash - The onset of the rash has been acute and has been occurring in a persistent pattern for 2 days. The course has been increasing. The rash is characterized as red. The rash was first seen on the face. It spread to the upper extremity (left hand). There has been associated itching and pain. Note for Rash: reviewed by [facility] 01-25-2021 Unclassified (20 sources) Chest pain - The onset of the pain has been acute and has been occurring in a recurrent pattern for months. The pain is described as a moderate dull ache. The pain is described as being located in the left sternal border and radiates to the left shoulder. There are no precipitating factors. Note for Chest pain: Went to cardiology and had a stress test a couple of months ago. No relation to meals or activity 01-11-2021 Unclassified (20 sources) Chest pain - The pain has been occurring in an intermittent pattern for 3 weeks (Has had similar pain the past, but has been worse the past 3 weeks.). The pain is described as a sharp pain and tightness. The pain is described as being located in the right chest (to the center of chest) and does not radiate. There are no precipitating factors. The symptoms have no aggravating factors. Note for Chest pain: Definitely is not exertional, can occur just sitting at rest. She had neck surgery back in 2016, been having some neck pain recently.Sometimes when she is at rest, she will feel like there is a heaviness of her chest and can not catch her breath. When she lying in bed, will hear wheezing. Is a smoker, smokes about 1 PPD since 14 years old. reviewed by [facility] 09-04-2020 Unclassified (20 sources) Cold Symptoms - Symptoms include sneezing, nasal congestion (last week), scratchy throat, dry cough, fever (Highest 101.3 last week), chills and headache, but do not include ear pain, ear fullness, sore throat or general malaise. The onset was sudden 8 day(s) ago. The symptoms occur constantly. The patient describes this as moderate in severity and unchanged. Current treatment includes acetaminophen. Note for Upper respiratory infection: Had a negative Covid-19 test last week. Also complains of fatigue. reviewed by [facility] 07-20-2020 Unclassified (20 sources) Headache - The onset of the headache has been acute and has been occurring in a persistent pattern for 10 days. The course has been constant. The headache is characterized as severe (at times) and throbbing. The headache is described as being located in the entire head. Note for Headache: Has had increased fatigue. has Covid-19 symptoms for 3 weeks, but was never tested. No cough , no sob, no fever, no nasal congestion. 05-25-2020 Unclassified (20 sources) Cold Symptoms - Symptoms include nasal congestion (mild), dry cough, wheezing, general malaise and headache, but do not include sneezing, runny nose, ear pain, sore throat, scratchy throat or fever. The onset was gradual 4 day(s) ago. The symptoms occur constantly. The patient describes this as moderate in severity and unchanged. The patient is not currently being treated for this problem. Risk factors include smoking. Note for Upper respiratory infection: Pt lost her sense of taste but had a negative covid test over the weekend. Patient states that she had chills when she first started feeling sick on Monday, but they have gotten better. She reports having a temperature of 99.0. She has not been taking any medications to help with her symptoms. 03-12-2020 Unclassified (20 sources) Wrist pain - The pain is in the left wrist. The onset of the wrist pain has been acute and has been occurring for 10 days. The wrist pain is characterized as a dull aching. Aggravating factors include any movement. There are no relieving factors. Associated features include painful ROM and decreased ROM, but do not include joint swelling. The wrist pain was preceded by trauma. Note for Wrist pain: Pt was walking her dog 7-10 days ago and he pulled the opposite direction from her and it twisted her wrist with the leash and pulled it outward reviewed by [facility] 10-15-2019 Unclassified (20 sources) Cold Symptoms - Symptoms include dry cough, general malaise and headache, but do not include sneezing, nasal congestion, runny nose or fever. The onset was sudden 4 day(s) ago. The symptoms occur constantly. The patient describes this as moderate in severity and unchanged. The patient has been exposed to an individual with an upper respiratory infection (). Note for Upper respiratory infection: Complains of increased fatigue, chest tightness and shortness of breath. reviewed by [facility] 09-24-2019 Unclassified (20 sources) Ankle pain - The onset of the ankle pain has been acute and has been occurring in a persistent pattern for 3 days. The course has been without change. The pain is characterized as a moderate dull aching. The pain is in the left ankle. Note for Ankle pain: Twisted ankle three days ago. She tripped walking new puppy. Pain worsened as day progressed. 07-15-2019 Unclassified (20 sources) Back pain - The onset of the back pain has been acute and has been occurring in a persistent pattern for 1 day. The course has been constant. The pain is characterized as a dull ache. The pain is located in the lower back and does not radiate. There are no precipitating factors. The symptoms are aggravated by exertion and weight lifting and have no relieving factors. Note for Back pain: pt has had bladder and kidney infections and had no other symptoms but lower back painpt also wants cortisone shot for shoulder pain 04-05-2019 Unclassified (20 sources) Cold Symptoms - Symptoms include nasal congestion, runny nose, sore throat, hoarseness, productive cough and chills, but do not include headache. The onset was sudden 6 day(s) ago. The symptoms occur constantly. The patient describes this as moderate in severity and unchanged. Current treatment includes non-prescription cold medication. Risk factors include smoking. The patient has been exposed to an individual with similar symptoms. Note for Upper respiratory infection: reviewed by [facility] 11-23-2018 Unclassified (20 sources) [ADDITIONAL REASON] Hair Loss - The onset of the hair loss has been gradual and has been occurring in a persistent pattern for 4 months. The course has been constant. The hair loss is described as moderate. The hair loss is characterized as partial. Note for Hair loss: also very fatigued, had TSH done 11/09 and came back WNL. reviewed by [facility] 11-23-2018 Unclassified (20 sources) FMLA - Patient is here today to have FMLA paperwork renewed. Would like to have for IBS. Been has been back to work for 2 weeks (had knee surgery)Patient states that she has been having worsening hair loss the past 3 months. Usually has very thick hair. Is also concerned about bruising more easily and feeling more tired lately. reviewed by [facility] 11-09-2018 Unclassified (20 sources) Knee Pain - The onset of the knee pain has been acute and has been occurring in a persistent pattern for months. The course has been increasing. The knee pain is moderate in both knees (right side is worse). Note for Knee pain: Asking for knee injection. reviewed by [facility] 03-14-2018 Unclassified (20 sources) Knee pain - The knee pain has been occurring in a persistent (was intermittent pain but is becoming a constant pain) pattern for 2 months. The knee pain is in the right knee. The knee pain is characterized as a dull aching. The knee pain is described as being located in the anterior knee and posterior knee (the past couple of days). The knee pain is aggravated by squatting, kneeling and prolonged standing. There were no relieving factors. There were no previous diagnostic tests. There has been no previous surgeries. Previous medications include Tylenol. Note for Knee pain: Has swelling to the right knee and with bending will feel like tightness, like it does not have any give in the knee.No known injury to the right knee. reviewed by [facility] 02-20-2018 Unclassified (20 sources) Headache - The onset of the headache has been variable and has been occurring in an intermittent pattern for 1 month. The course has been recurrent. The headache is characterized as severe. The headache is described as being located in the left side (behind left eye). Note for Headache: Vision in left eye is blurred on occasion. Also complains of increased fatigue. No recent trauma. Sx are worsening. She has headaches in past but not this severe and not so localized 10-04-2017 Unclassified (20 sources) Follow up consultation - The patient is here to follow-up after a consult (Had surgery on neck 03/10/2017. Had a floroscopy for cervical dgeneration disc disease of C5-6.). Current symptoms include none (Pain is now at a 0. Pt had physical therapy and was released at end of March. Pt has been truing to get in with surgeon to get a release for work but appt keeps getting cancelled so pt was hoping that PCP was able to release. 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. Pt was supposed to go back 06/09/18 but surgeon would not release her yet and she had an appt 06/30/18 but then it got cancelled. Her next appt with surgeon is 07/28/17 but pt ready to return to work now. Has not needed anything for pain in over a month.). Note for Consultation follow-up: reviewed by [facility] 07-14-2017 Unclassified (20 sources) Back pain - The onset of the back pain has been sudden (Pt moved wrong yesterday and hurt it. Did fall down step years ago and fractured some vertebrae. Since then if she moves the wrong way pain will flare up. She was doing exercises from Surgery on neck in [place] and twisted the wrong way. Had some old Flexeril s that she took. Also had a Silex left over from surgery and took that as well.) and has been occurring in a persistent pattern for 1 day. The course has been constant. The pain is located in the lower back (and radiates to the right of back.). The symptoms are relieved by heat (helped some but not very much. Flexeril helped along with the Silex.). Note for Back pain: Aggravated by any movement. No associated symptoms. reviewed by [facility] 05-26-2017 Unclassified (20 sources) Preoperative Clearance - Surgical procedure(s) planned: cervical discectomy. Date of procedure: (03-10-17) Location of procedure: ([facility]) Previous problems include a reaction to general anesthesia. Prosthetics include dentures (upper) and eye glasses. 03-07-2017 Unclassified (20 sources) Neck pain - The onset of the neck pain has been gradual (Saw [facility] on 08/31/16 for lateral epicondylitis - didn't go away.) and has been occurring in a persistent pattern for months. The course has been increasing. The neck pain is described as a moderate to severe needles and pins (numbness in arm and in neck (soreness and pinching)). The neck pain is described as being located in the midline of neck, right lateral neck and left lateral neck and radiating to the radial aspect of right arm, radial aspect of left arm, ulnar aspect of right arm, ulnar aspect of left arm, into right hand, into left hand, into right shoulder and into left shoulder. There have been no relieving factors. Previous evaluations have been completed by a chiropractor (years ago). There has been no previous physical therapy. There has been no use of assistive devices. Previous medications have included Tylenol. 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 01-12-2017 Unclassified (20 sources) Abdominal pain - The onset of the abdominal pain has been acute and has been occurring in a persistent pattern for 1 month. The course has been constant. The pain is described as a moderate dull ache. The pain is located in the left lower quadrant and does not radiate. The symptoms have no aggravating factors but have no relieving factors. There has been no associated abdominal distention, bloating, dysuria or fever. Note for Abdominal pain: reviewed by [facility] 10-26-2016 Unclassified (20 sources) UTI - Symptoms include flank pain, abdominal pain and back pain. The patient describes the pain as aching. Onset was sudden 2 day(s) ago. The symptoms occur constantly. The patient describes this as mild and worsening. Associated symptoms do not include fever, chills, nausea or vomiting. Note for UTI: Pain is intermittent; rates as 3-6/10. Has been taking tylenol ES. No change in bowel habits. No history of kidney stones. Pain is bilateral and goes around her sides to her abd. Did do a lot of heavy lifting at work the day before her pain started. 10-13-2016 Unclassified (20 sources) Hand pain - The onset of the hand pain has been acute and has been occurring in a persistent pattern for 1 week. The course has been increasing. The hand pain is characterized as a moderate sharp stabbing. The hand pain is described as being located in the entire hand. The hand pain is aggravated by physical activity. Note for Hand pain: Right hand pain from fingers to elbow. no recent injury or new activity. 08-31-2016 Unclassified (20 sources) Well Adult, female - The patient feels well with minor complaints (Pt here for wellness physical for her insurance. HAs been fasting some fingerstick lipid and glucose done. Declines flu vaccine today. Discuss medication ofr IBS. Is not currently using any medication. She will go about 2- 2 1/2 weeks without BM and then will either have diarrhea or normal BM. Seems to go between constipation and diarrhea.Also was in last week for UTI and is feeling much better on that.). The first day of the last menstrual period was : (Hysterectomy in 2000. Still has ovaries. Normally [facility] in [place] for paps.). The patient is not using any method of contraception at this time. The patient has a balanced diet and takes supplemental vitamins. The patient does not exercise. The patient sleeps 7 hours per night. Note for Well Adult, female: reviewed by [facility] 03-25-2016 Unclassified (20 sources) UTI - Symptoms include dysuria, urinary frequency, urinary urgency and abdominal pain (lower abdomen (left side)). Onset was sudden 10 day(s) ago. The symptoms occur intermittently. The patient describes this as moderate in severity and worsening. Associated symptoms include chills and nausea, but do not include fever or vomiting. Note for UTI: reviewed by [facility] 03-16-2016 Unclassified (20 sources) Rash - The onset of the rash has been acute and has been occurring in a persistent pattern for 1 week. The course has been increasing. The rash is characterized as red. The rash was first seen on the upper extremity (both arms). It spread to the face. There has been associated itching. Note for Rash: Started Triamcinolone cream 01-11-16 with no improvement. Requesting injection. Last kenalog injection 10-31-15. 01-15-2016 Unclassified (20 sources) Back pain - The onset of the back pain has been sudden and has been occurring in a persistent pattern for 3 weeks. The course has been increasing. The pain is characterized as a dull ache. The pain is located in the lower back and does not radiate. There are no precipitating factors. The symptoms are relieved by heat (topical creams). The pain has been associated with back stiffness, while there has been no associated abdominal pain, dysuria, fever, flank pain, hip pain, history of back surgery, incontinence of stool, incontinence of urine, leg weakness or paresthesias in leg. Note for Back pain: reviewed by [facility] 10-31-2015 Unclassified (20 sources) Transition into care - The patient is transitioning into care from a hospital ([facility]. 11/14/14.) and a summary of care was reviewed . 12-17-2014 Unclassified (20 sources) [ADDITIONAL REASON] Biometric Screening - Pt needed biometric screening for insurance. Pt does smoke. 12-17-2014 Unclassified (20 sources) Follow up consultation - The patient is here to follow-up after Emergency Room/Urgent Care ([place] [facility] with diagnosis of shingles on left thigh.) on : (08-11-14). Note for Consultation follow-up: Has not started Acyclovir yet. Was unable to get to the pharmacy. She has had recurrent episodes of shingles in past as well. 08-12-2014 Unclassified (20 sources) Abdominal pain - The onset of the abdominal pain has been sudden and has been occurring in an intermittent pattern for 1 day. The course has been constant. The pain is described as a moderate sharp pain, stabbing, pressure sensation and cramping. The pain is located in the entire abdomen and does not radiate. The symptoms are aggravated by standing and walking but have no relieving factors. The symptoms have been associated with abdominal distention and bloating. Note for Abdominal pain: reviewed by [facility] 04-29-2014 Unclassified (20 sources) Abdominal pain - The onset of the abdominal pain has been sudden (Pt has his of bowel dumping and she had an episode night. She had another episode Monday night and had to leave work and she has not been back to work since. She has not had anymore episdoes but states that she has had really bad abdominal pain since Monday. ). The pain is described as a dull ache (all across stomach). Note for Abdominal pain: Pt just feels nauseaus and has no appetite. Is taking in fluids- water and 7 up and pepto Bismal. No BM's since Monday night but is passing a lot of gas. 12-09-2013 Unclassified (20 sources) Lump on ankle - Has had a lump on right ankle for several years. Over the past week has doubled in size. Describes as tender. No injury she knows of although severalyears she did have a fall and had multiple trauma areas. 10-01-2013 Unclassified (20 sources) Depression (Initial) - The onset of the depression has been acute and has been occurring in an intermittent pattern for 5 months. The course has been increasing. The depression is described as feeling sad and tired. The symptoms include suicidal thoughts, loss of interest, depressed mood, fatigue, trouble concentrating, loss of appetite, excessive sleeping, headaches and anxiety, while the symptoms do not include suicidal attempts or increased appetite. The symptoms have been associated with recent divorce. The depression was preceded by family stressors. Note for Depression: Has been seeing therapist. I have seen Kellie for this in the past as well and she has been on meds fo rit before, most recently was on Zoloft in 2010. Pt crying a lot, no ambition, sleep is fractured, poor appetitie. This is the worst she has been by her report. States she is 1 out of 10, pt admits to suicidal thoughts but no actual plans. 01-30-2013 Unclassified (20 sources) Well Adult, female - The patient feels well with no complaints, has decreased energy level and is sleeping well. Most recent Pap smear : (unknown). The first day of the last menstrual period was : (none; hysterectomy). The current method of contraception is: none (hysterectomy). Date of last mammogram : (> 3 years ago). Last Tetanus booster: unknown/unsure. The patient has a balanced diet and takes no supplemental vitamins & iron. The patient exercises weekly. The patient sleeps 7 hours per night. Note for Well Adult, female: Patient was in [facility] ER 3 weeks ago and labs reviwed by me today 10-31-2012 Unclassified (20 sources) Follow up consultation - The patient is here to follow-up after Emergency Room/Urgent Care on : (10/15/12 at [facility]. Diagnosed with Dizziness unknown etiology). Current symptoms include other (Pt is still getting a little dizzy and lightheaded although not as severe as it was. DIzziness comes on no matter if she is getting up, turning head or just sitting still. No nausea/vomiting with this. No fever. No sob. The did not give her any medication. Pt has also been drinking a lot of water.). Note for Consultation follow-up: reviewed by [facility] 10-19-2012 Unclassified (20 sources) Punch Bipsy - Pt here this morning to have a punch biposy done of lesion on left side of abdomen. Pt also complaining of another small lesion on left lower abdomen that has been itching and causing irritation and wanting that removed today as well. see previous notes 08-31-2012 Unclassified (20 sources) mole - pt has a mole on he abd that has been there all her life but 2 years ago it started changing in size and color and now is very itchy. ( pt waited to get checked because she did not have insurance ) 08-25-2012 Unclassified (20 sources) Fluish symptoms - Pt here today because she awoke yesterday morning and did not feel well at all. Pt was achey all over. Head was little congestied when she awoke and had a nonproductive cough. As day progressed she had upset stomache and vomited x 1. Also had some diarrhea. Started with little s/t and fever. Temp yesterday was 102. Temp today 98.3. Chest does not hurt. No wheezing or SOB. Pt did take Tylenol before coming in today. 05-07-2012 Unclassified (20 sources) Wrist pain - The pain is in the left wrist. The onset of the wrist pain has been acute (she had a cycste on it that busted sat while she was moving furniture) and has been occurring in a persistent pattern for 3 days. The course has been constant. The wrist pain is characterized as a moderate sharp stabbing. Aggravating factors include any movement. There are no relieving factors. Associated features include painful ROM, decreased ROM, burning sensation, difficulty opening doors, difficulty turning keys in the ignition and difficulty with lifting. Note for Wrist pain: reviewed by [facility] 02-27-2012 Unclassified (20 sources) Follow up consultation - The patient is here to follow-up after Emergency Room/Urgent Care on : (10/06/10). Current symptoms include other (Sore with 5 fracture ribs on the rt. side, and a fracture vertabrea. Also with c/o her rt sided hip muscle real sore when she stands or walks.). There is a family history of myocardial infarction before age 55 (father of heart attack.). 10-13-2010 Unclassified (20 sources) COld SYmptoms and Menapuse - Pt here for some cold symptoms which started Wed. with bad stomache ache. Off yesterday as well. Has cough, runny nose, left ear discomfort and head congestion. S/T started today . Not sure if any fever- has not taken. No fever today.Also here to discuss menapuse. Last pap 3 years ago up in [place]- was normal. LMP: Had hysterectomy back in 2000 but still has ovaries. Pt has been experieincing hot flashes, night sweats, not sleeping well for past 4 months. SHe thought it was time to get things checked out and discuss . Has not had mammogram since 2007. Says she had cysts and was checked out further and was fine. Pt would also like pain meds in case of migraine . used to take darvocet. Frequency aboiut 3 times per month. 09-17-2010 Unclassified (8 sources) Rash - The onset of the rash has been gradual and has been occurring in a persistent pattern for 1 month. The course has been constant. The rash is characterized as red. It spread to the trunk. There has been associated itching. Note for Rash: reviewed by [facility] 09-13-2022 Unclassified (8 sources) [ADDITIONAL REASON] bowel incontinence - leakage when passing gas. C/O pressure while urinating. sx present for a few months but not worsening. 09-13-2022 Unclassified (7 sources) Biometric Screening - Pt needed biometric screening for insurance. Pt does smoke. 12-17-2014 Unclassified (7 sources) [ADDITIONAL REASON] Transition into care - The patient is transitioning into care from a hospital ([facility]. 11/14/14.) and a summary of care was reviewed . 12-17-2014 Unclassified (8 sources) Hair Loss - The onset of the hair loss has been gradual and has been occurring in a persistent pattern for 4 months. The course has been constant. The hair loss is described as moderate. The hair loss is characterized as partial. Note for Hair loss: also very fatigued, had TSH done 11/09 and came back WNL. reviewed by [facility] 11-23-2018 Unclassified (8 sources) [ADDITIONAL REASON] Cold Symptoms - Symptoms include nasal congestion, runny nose, sore throat, hoarseness, productive cough and chills, but do not include headache. The onset was sudden 6 day(s) ago. The symptoms occur constantly. The patient describes this as moderate in severity and unchanged. Current treatment includes non-prescription cold medication. Risk factors include smoking. The patient has been exposed to an individual with similar symptoms. Note for Upper respiratory infection: reviewed by [facility] 11-23-2018 Unclassified (18 sources) Rash - The rash has been occurring in a persistent pattern for 2 days. The course has been increasing. The rash is characterized as red. The rash was first seen on the face. It spread to the upper extremity (left hand). There has been associated itching. Note for Rash: Pt has abnormal area on bottom of left foot reviewed by [facility] 12-07-2023 Results Test Name Value Interpretation Reference Range Facility [facility] 04-24-[address] [facility] Telephone (HEMAWS) ----- THOMASKELLIE Kapil ([id number]) 1965 F [facility] Date Time Provider Department 04/24/25 [facility] During your visit today, we recorded the following information about you: Juliocesar Apple 04/24/2025 12:39 PM Signed Patient called stating that she has an 05/13 appointment set up with Neuro and she states she does not want to see provider due to terrible ratings. She states Dr. East was going to talk to Dr. Bravo about getting a sooner appointment and she is asking about status. Please advise. Nelly Bernardo LPN 04/24/2025 1:[address] East- patient asking if you spoke with Dr. Bravo regarding an appointment? PSS- please offer the patient an appointment with a different neurologist. ANGELLA Wood Paul A, DO 04/24/2025 4:42 PM Signed I was given the names of these physicians: Dr. Chang Acosta or Dr. Maria Elena Oliva. Nelly Bernardo LPN 04/25/2025 8:11 AM Signed PSS- please contact patient to get her scheduled with one of the following neurologists : Dr. Chang Acosta or Dr. Maria Elena Oliva. She does not want to see the neurologist she is currently scheduled with. ANGELLA Wood Angela 04/25/2025 2:03 PM Signed Spoke with patient and tried to schedule In person with the below Alessandra. First available is August. Patient did not want to wait that long. Patient advised she researched Dr. Ramirez Ac and is requesting to see him. Please advise Raven Andrew DO 04/25/2025 2:40 PM Signed Sure. Nelly Bernardo LPN 04/25/2025 3:40 PM Signed Referral faxed to Dr. Ac's office per patient request. Patient is aware. Nelly Bernardo LPN Allergies As of Date: 04/24/2025 (No Known Allergies) Date Reviewed: 04/17/2025 Reviewed by: Cassidy Hassan LPN - Fully Assessed Reason for Visit: Patient Question [3787] Prescriptions as of 04/25/2025 - lidocaine-prilocaine (EMLA) 2.5-2.5 % cream Apply to affected area as needed. - cholecalciferol (VITAMIN D-3) 50 mcg (2,000 unit) tablet Take 1 tablet by mouth once daily. - iv contrast (will be provided with radiology test) CT Chest W -Inject, intravenously, once for 1 dose.No IV access, insert saline lock prior to the beginning of sedation, infusion, injection of imaging exam. Discontinue saline lock post exam. If Pt. has a central line or IVAD, may access for administration according to line specific nursing protocol. Once exam is complete flush line and de-access according to line specific nursing protocol in the CT contrast administration guidelines link. - iv contrast (will be provided with radiology test) CT ABD/PEL -Inject, intravenously, once for 1 dose.No IV access, insert saline lock prior to the beginning of sedation, infusion, injection of imaging exam. Discontinue saline lock post exam. If Pt. has a central line or IVAD, may access for administration according to line specific nursing protocol. Once exam is complete flush line and de-access according to line specific nursing protocol in the CT contrast administration guidelines link. - enteric contrast (will be provided with radiology test) For CT ABD/PEL W IVCON Routine order Administer, As Directed One Time Only, via Oral, Rectal, both Oral and Rectal, Enteric Tube, Stoma or Indwelling Catheter, Enteric Contrast as designated per enteric contrast guidelines - acetaminophen with codeine (TYLENOL-CODEINE #3 ORAL) Take by mouth as needed. - docusate sodium (COLACE) 100 mg capsule Take 100 mg by mouth once daily. - acetaminophen (TYLENOL) 325 mg tablet Take 650 mg by mouth every 6 hours as needed. - vitamin B complex (B COMPLEX ORAL) Take 1 tablet by mouth once daily. 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*08/17/2023 Acute right-sided low back pain without sciatic*06/11/2024 Encounter Status:Closed by NELLY BERNARDO on 04/25/25 Normal [facility] Absolute lymphocyte countOrd ered By: Osman Pelletier on 04-22-2025 Lymphocytes Auto (Unsp spec) [#/Vol] 0.90 10*3/uL 0.83-4.51 [facility] Absolute neutrophil countOrd ered By: Osmantravis Pelletier on 04-22-2025 Neutrophils (Bld) [#/Vol] 3.2 10*3/uL 2.0-7.7 [facility] Anion gap in Serum or Plasma Ordered By: Osmantravis Pelletier on 04-22-2025 Anion gap [Moles/Vol] 10 mmol/L 5- [facility] Automated lymphocyte count a s percentage of total leukocytesOrdered By: Osmantravis Pelletier on 04-22-2025 Lymphocytes/100 WBC Auto (Unsp spec) 18.9 % Low 19- [facility] BUN/creatinine ratioOrdered By: Osmantravis Pelletier on 04-22-2025 Urea nitrogen/Creatinine [Mass ratio] 16.9 mg/mg 10- [facility] Basophil percentageOrdered B y: Osmantravis Pelletier on 04-22-2025 Basophils/100 WBC (Bld) 0.8 % 0-1 [facility] Bilirubin, totalOrdered By: Osmantravis Pelletier on 04-22-2025 Bilirubin [Mass/Vol] 0.22 mg/dL 0.00-1.30 [facility] CBC W/Diff, Automatedon 10- Absolute Lymph 0.90 X10 3/uL Normal 0.83-4.51 [facility] Comment on above: Performed By: #### L 100.0100, L500.4050 #### [facility] [address] [place], [address] Absolute Neut 3.2 X10 3/uL Normal 2.0-7.7 [facility] Comment on above: Performed By: #### L 100.0100, [id number] #### [facility] [address] [place], [address] Basophils/100 WBC (Bld) 0.8 % Normal 0-1 [facility] Comment on above: Performed By: #### L 100.0100, [id number] #### [facility] [address] [place], [address] Eosinophils/100 WBC (Bld) 3.2 % Normal 0-5 [facility] Comment on above: Performed By: #### L 100.0100, [id number] #### [facility] [address] [place], [address] Erythrocyte distribution width (RBC) [Ratio] 12.9 % Normal 11.6-14.6 [facility] Comment on above: Performed By: #### L 100.0100, [id number] #### [facility] [address] [place], [address] Hematocrit (Bld) [Volume fraction] 34.3 % Low 37-47 [facility] Comment on above: Performed By: #### L 100.0100, [id number] #### [facility] [address] [place], [address] Hemoglobin (Bld) [Mass/Vol] 11.3 g/dL Low 12.0-15.0 [facility] Comment on above: Performed By: #### L 100.0100, [id number] #### [facility] [address] [place], [address] IG% 0.400 Normal 0.0-0.9 [facility] Comment on above: Result Comment: IG% - Immature Granulocytes (promyelocytes, myelocytes and metamyelocytes) > 1% indicates that a LEFT SHIFT is Present. Performed By: #### L 100.0100, [id number] #### [facility] [address] [place], [address] Lymphocytes/100 WBC (Bld) 18.9 % Low 19-41 [facility] Comment on above: Performed By: #### L 100.0100, [id number] #### [facility] [address] [place], [address] MCH (RBC) [Entitic mass] 30.2 pg Normal 27.0-32.0 [facility] Comment on above: Performed By: #### L 100.0100, [id number] #### [facility] [address] [place], [address] MCHC (RBC) [Mass/Vol] 32.9 g/dL Normal 32-36 [facility] Comment on above: Performed By: #### L 100.0100, [id number] #### [facility] [address] [place], [address] MCV (RBC) [Entitic vol] 91.7 fL Normal 81-99 [facility] Comment on above: Performed By: #### L 100.0100, [id number] #### [facility] [address] [place], [address] Monocytes/100 WBC (Bld) 9.9 % Normal 0-10 [facility] Comment on above: Performed By: #### L 100.0100, [id number] #### [facility] [address] [place], [address] Neutrophils/100 WBC (Bld) 66.8 % Normal 47-70 [facility] Comment on above: Performed By: #### L 100.0100, [id number] #### [facility] [address] [place], [address] Nucleated RBC (Bld) [#/Vol] 0 10*3/uL Normal 0-5 [facility] Comment on above: Performed By: #### L 100.0100, [id number] #### [facility] [address] [place], [address] Platelet mean volume (Bld) [Entitic vol] 9.6 fL Normal 6.2-12.0 [facility] Comment on above: Performed By: #### L 100.0100, [id number] #### [facility] [address] [place], [address] Platelets (Bld) [#/Vol] 234 10*3/uL Normal 150-450 [facility] Comment on above: Performed By: #### L 100.0100, [id number] #### [facility] [facility] [address] [place], [address] RBC (Bld) [#/Vol] 3.74 10*6/uL Low 4.2-5.4 [facility] Comment on above: Performed By: #### L 100.0100, L500.4050 #### [facility] [address] [place], [address] RDW SD 42.9 fl Normal 35.1-43.9 [facility] Comment on above: Performed By: #### L 100.0100, L500.4050 #### [facility] [address] [place], [address] WBC (Bld) [#/Vol] 4.8 10*3/uL Normal 4.4-11.0 [facility] Comment on above: Performed By: #### L 100.0100, L500.4050 #### [facility] [address] [place], [address] Carbon dioxide, total [Moles /volume] in Central venous bloodOrdered By: Osman Pelletier on 04-22-2025 CO2 [Moles/Vol] 24.4 mmol/L 21.0-32.0 [facility] Chloride assayOrdered By: Lisandro Pelletier on 04-22-2025 Chloride [Moles/Vol] 106 mmol/L 98-108 [facility] Comprehensive Metabolic Prof ilon 04-22-2025 Albumin [Mass/Vol] 4.2 g/dL Normal 3.4-4.8 [facility] Comment on above: Performed By: #### L 100.0100, L500.4050 #### [facility] [address] [place], [address] Albumin/Globulin [Mass ratio] 1.7 {ratio} Normal 0.9-2.4 [facility] Comment on above: Performed By: #### L 100.0100, L500.4050 #### [facility] [address] [place], [address] ALK PHOS 57 U/L Normal 35-104 [facility] Comment on above: Performed By: #### L 100.0100, L500.4050 #### [facility] [address] [place], [address] ALT [Catalytic activity/Vol] 21 U/L Normal <=34 [facility] Comment on above: Performed By: #### L 100.0100, L500.4050 #### [facility] [address] [place], [address] AST [Catalytic activity/Vol] 26 U/L Normal <=31 [facility] Comment on above: Performed By: #### L 100.0100, L500.4050 #### [facility] [address] [place], [address] Bilirubin [Mass/Vol] 0.22 mg/dL Normal 0.00-1.30 [facility] Comment on above: Performed By: #### L 100.0100, L500.4050 #### [facility] [address] [place], [address] BUN/CRE 16.9 RATIO Normal 10-20 [facility] Comment on above: Performed By: #### L 100.0100, L500.4050 #### [facility] [address] [place], [address] Calcium [Mass/Vol] 9.2 mg/dL Normal 7.6-11.0 [facility] Comment on above: Performed By: #### L 100.0100, L500.4050 #### [facility] [address] [place], [address] Chloride [Moles/Vol] 106 mmol/L Normal 98-108 [facility] Comment on above: Performed By: #### L 100.0100, L500.4050 #### [facility] [address] [place], [address] CO2 [Moles/Vol] 24.4 mmol/L Normal 21.0-32.0 [facility] Comment on above: Performed By: #### L 100.0100, L500.4050 #### [facility] [address] [place], [address] Creatinine [Mass/Vol] 1.11 mg/dL Normal 0.70-1.20 [facility] Comment on above: Performed By: #### L 100.0100, L500.4050 #### [facility] [address] [place], [address] ECRCL 56.67 ml/min Normal 50-250 [facility] Comment on above: Performed By: #### L 100.0100, L500.4050 #### [facility] [address] [place], [address] GAP 10 Normal 5-15 [facility] Comment on above: Performed By: #### L 100.0100, L500.4050 #### [facility] [address] [place], [address] GFR/1.73 sq M.predicted among non-blacks MDRD (S/P/Bld) [Vol rate/Area] 57 mL/min/{1.73_m2} Low >60 [facility] Comment on above: Result Comment: mL/m in/1.73m2 CKD-EPI Creatinine Equation (2020) Performed By: #### L 100.0100, L500.4050 #### [facility] [address] [place], [address] Globulin (S) [Mass/Vol] 2.5 g/dL Normal 2.2-4.2 [facility] Comment on above: Performed By: #### L 100.0100, L500.4050 #### [facility] [address] [place], [address] Glucose [Mass/Vol] 150 mg/dL High 70-99 [facility] Comment on above: Performed By: #### L 100.0100, L500.4050 #### [facility] [address] [place], [address] Potassium [Moles/Vol] 3.8 mmol/L Normal 3.3-5.1 [facility] Comment on above: Performed By: #### L 100.0100, L500.4050 #### [facility] [address] [place], [address] Sodium [Moles/Vol] 140 mmol/L Normal 133-145 [facility] Comment on above: Performed By: #### L 100.0100, L500.4050 #### [facility] [address] [place], [address] T PROT 6.7 g/dL Normal 5.9-8.4 [facility] Comment on above: Performed By: #### L 100.0100, L500.4050 #### [facility] [address] [place], [address] Urea nitrogen [Mass/Vol] 19 mg/dL Normal 4-19 [facility] Comment on above: Performed By: #### L 100.0100, L500.4050 #### [facility] [address] [place], [address] Emergency Department Summary on 04-22-2025 Emergency Department Summary [facility] Medical Records Department [address] [place] [address] Emergency Department Summary 04/22/25 MR#: [id number] Acct: [id number] Name: KELLIE KANG Rep #: [id number] : 1965 60 From: Osman Pelletier MD PCP: Werner Baptiste MD Status:REG ER Location: ED HPI History of Present Illness Chief Complaint: Weakness Detail of Chief Complaint: Multiple types of cancer with weakness and numbness upper extremities Informant: patient Onset/Context/Timing Onset: Today Context: Sudden Onset Timing: Continuous Quality: Pins and needle burning numb sensation Location: Both upper extremities Current Severity: Moderate Maximum Severity: Severe Worsened by: Nothing Relieved by: Nothing Associated Symptoms Associated Symptoms: None Narrative Narrative: Patient is a 60-year-old woman. She has history of small cell carcinoma of the lung, thyroid cancer, lymphoma who presents with numbness tingling burning sensation of right and left upper extremity. She states started today got worse several hours prior to presentation. She complains of weakness in the arms as well. She denies headache, double vision, blurred vision loss of vision. Nuys ringing or ears decreased hearing. No trouble with speech or swallowing. She denies chest discomfort, pressure, tightness or heaviness. She denies shortness of breath or difficulty breathing. Denies pleuritic chest pain. Denies abdominal pain, nausea, vomit or diarrhea. She denies dysuria, frequency, urgency or hematuria. She denies weakness or numbness in her lower extremities. Denies trouble with coordination or balance. Prior similar symptoms: Yes (At the time of my exit interview she states has been going on for a year an) Recent Illness/Hospitalization: No [facility] Medical History COPD (chronic obstructive pulmonary disease) Lymphoma Small cell lung cancer Home Medications ???Medication ???Instructions ???Recorded ???Last Taken ???Type olanzapine 5 mg tablet 5 mg PO DAILY 08/18/23 Unknown His tory ondansetron 8 mg disintegrating 8 mg PO Q8H 08/18/23 Unknown Histo ry tablet prochlorperazine maleate 10 mg 10 mg PO BID PRN nausea and Unknown History tablet (Compazine) vomiting cholecalciferol (vitamin D3) 50 50 mcg PO DAILY 03/05/24 Unknown H istory mcg (2,000 unit) capsule (Vitamin D3) metoprolol succinate 25 mg 25 mg PO DAILY 03/05/24 Unknown Hi story tablet,extended release 24 hr nitrofurantoin macrocrystal 100 mg 100 mg PO BID 7 days #14 caps Unknown Rx capsule ondansetron 4 mg disintegrating 4 mg PO Q8H PRN PRN Nausea #10 tab s 03/05/24 Unknown Rx tablet Allergy/AdvReac Type Severity Reaction Status Date / Time No Known Allergies Allergy Verified 12/13/23 17:12 Family History Father Myocardial infarction Surgical History Hx of neck surgery History of ankle surgery History of hysterectomy History of herniorrhaphy Hx of right knee surgery History of section Social History Smoking Status: Former smoker ROS ROS ED Constitutional Constitutional ED: Denies chills, fever(s), subjective, sweats or weight loss Eyes Eyes: Denies blurry vision, change in vision or diplopia ENT ENT ED: Denies ear pain, rhinorrhea or sore throat Cardiovascular Cardiovascular: Denies chest pain, orthopnea, palpitations or paroxysmal nocturnal dyspnea Respiratory/Chest Respiratory/Chest: Denies cough, dyspnea, dyspnea on exertion, orthopnea or paroxysmal nocturnal dyspnea Gastrointestinal Gastrointestinal: Denies abdominal pain, nausea or vomiting Genitourinary Genitourinary ED: Denies dysuria, hematuria or urinary frequency Musculoskeletal Musculoskeletal: Denies arthralgias, back pain, myalgias or neck pain Integumentary Denies abscess or rash Neurologic Neurologic: Reports headache(s), paresthesias RUE and LUE and weakness Psychiatric Psychiatric: Reports depression; Denies anxiety Hematologic/Lymphatic Hematologic/Lymphatic: Reports systems reviewed and no addt'l complaints, except as documented EXAM Physical Exam Const Vital Signs: 04/22/25 11:38 04/22/25 11:44 04/22/25 12:30 Temperature 97.9 F Temperature Source Oral Pulse Rate 66 71 Respiratory Rate 18 14 Respiratory Effort Normal Non-Labored Respiratory Pattern Normal Blood Pressure 139/79 H 130/66 H Blood Pressure Mean 99 85 Pulse Ox 100 100 Oxygen Delivery Method Room Air 04/22/25 13:00 04/22/25 13:15 04/22/25 13:30 Temperature Temperature Source Pulse Rate 70 70 68 (more content not included)... Normal [facility] Eosinophil percentageOrdered By: Osman Pelletier on 04-22-2025 Eosinophils/100 WBC (Bld) 3.2 % 0-5 [facility] Erythrocyte distribution wid th ratioOrdered By: Osman Pelletier on 04-22-2025 Erythrocyte distribution width (RBC) [Ratio] 12.9 % 11.6-14.6 [facility] Erythrocyte distribution wid th standard deviationOrdered By: Osman Pelletier on 04-22-2025 Erythrocyte distribution width (RBC) [Ratio] 42.9 fl 35.1-43.9 [facility] Glomerular filtration rate ( GFR) estimation/1.73 sq m using serum, plasma, or whole bOrdered By: Osman Pelletier on 04-22-2025 GFR/1.73 sq M.predicted among non-blacks MDRD (S/P/Bld) [Vol rate/Area] 57 mL/min/{1.73_m2} Low >60 [facility] Comment on above: mL/min/1.73m2 CKD-EP I Creatinine Equation (2020) Hematocrit Auto (Bld) [Volum e fraction]Ordered By: Osman Pelletier on 04-22-2025 Hematocrit (Bld) [Volume fraction] 34.3 % Low 37-47 [facility] Hemoglobin measurementOrdere d By: Osman Pelletier on 04-22-2025 Hemoglobin (Bld) [Mass/Vol] 11.3 g/dL Low 12.0-15.0 [facility] Immature granulocytes/100 WB C Auto (Bld)Ordered By: Osman Pelletier on 04-22-2025 Immature granulocytes/100 WBC (Bld) 0.400 % 0.0-0.9 [facility] Comment on above: IG% - Immature Granu locytes (promyelocytes, myelocytes and metamyelocytes) > 1% indicates that a LEFT SHIFT is Present. Laboratory - Chemistry and C hemistry - challengeOrdered By: Osman Pelletier on 04-22-2025 AST [Catalytic activity/Vol] 26 U/L <32 [facility] MCV (mean corpuscular volume ) determinationOrdered By: Osman Pelletier on 04-22-2025 MCV (RBC) [Entitic vol] 91.7 fL 81-99 [facility] Mean corpuscular hemoglobin (MCH) determinationOrdered By: Osmantravis Pelletier on 04-22-2025 MCH (RBC) [Entitic mass] 30.2 pg 27.0-32.0 [facility] Mean corpuscular hemoglobin concentration (MCHC) determinationOrdered By: Osman Pelletier on 04-22-2025 MCHC (RBC) [Mass/Vol] 32.9 g/dL 32-36 [facility] Mean platelet volume determi nationOrdered By: Osman Pelletier on 04-22-2025 Platelet mean volume (Bld) [Entitic vol] 9.6 fL 6.2-12.0 [facility] Monocyte percentageOrdered B y: Osman Pelletier on 04-22-2025 Monocytes/100 WBC (Bld) 9.9 % 0-10 [facility] Neutrophil percentageOrdered By: Osman Pelletier on 04-22-2025 Neutrophils/100 WBC (Bld) 66.8 % 47-70 [facility] Nucleated red blood cell per centageOrdered By: Osman Pelletier on 04-22-2025 Nucleated RBC/100 WBC (Bld) [Ratio] 0 % 0-5 [facility] Platelet countOrdered By: Lisandro Pisanoo on 04-22-2025 Platelets (Bld) [#/Vol] 234 10*3/uL 150-450 [facility] Potassium measurement (mass/ volume)Ordered By: Osman Pelletier on 04-22-2025 Potassium (Unsp spec) [Mass/Vol] 3.8 mmol/L 3.3-5.1 [facility] RBC Auto (Bld) [#/Vol]Ordere d By: Osman Pelletier on 04-22-2025 RBC (Bld) [#/Vol] 3.74 10*6/uL Low 4.2-5.4 [facility] Serum creatinine measurement (mass/volume)Ordered By: Osman Pelletier on 04-22-2025 Creatinine [Mass/Vol] 1.11 mg/dL 0.70-1.20 [facility] Serum globulin measurementOr dered By: Osman Pelletier on 04-22-2025 Globulin (S) [Mass/Vol] 2.5 g/dL 2.2-4.2 [facility] Serum glucose measurement (m ass/volume)Ordered By: Osman Pelletier on 04-22-2025 Glucose [Mass/Vol] 150 mg/dL High 70-99 [facility] Serum or plasma alanine salvador otransferase (ALT) measurementOrdered By: Osman Pelletier on 04-22-2025 ALT [Catalytic activity/Vol] 21 U/L <35 [facility] Serum or plasma albumin estela urement (mass/volume)Ordered By: Osman Pelletier on 04-22-2025 Albumin [Mass/Vol] 4.2 g/dL 3.4-4.8 [facility] Serum or plasma albumin/glob ulin mass ratioOrdered By: Osmantravis Pelletier on 04-22-2025 Albumin/Globulin [Mass ratio] 1.7 {ratio} 0.9-2.4 [facility] Serum or plasma alkaline marin sphatase measurementOrdered By: Osamntravis Pelletier on 04-22-2025 ALP [Catalytic activity/Vol] 57 U/L 35-104 [facility] Serum or plasma calcium estela urement (mass/volume)Ordered By: Osman Pelletier on 04-22-2025 Calcium [Mass/Vol] 9.2 mg/dL 7.6-11.0 [facility] Serum or plasma urea nitroge n measurement (mass/volume)Ordered By: Osman Pelletier on 04-22-2025 Urea nitrogen [Mass/Vol] 19 mg/dL 4-19 [facility] Sodium levelOrdered By: Osman Pelletier on 04-22-2025 Sodium [Moles/Vol] 140 mmol/L 133-145 [facility] Total proteinOrdered By: Osman Pelletier on 04-22-2025 Protein [Mass/Vol] 6.7 g/dL 5.9-8.4 [facility] White blood cell (WBC) count Ordered By: Osman Pelletier on 04-22-2025 WBC (Bld) [#/Vol] 4.8 10*3/uL 4.4-11.0 [facility] ALBUMIN/CREATININE RATIO, UR INEon 04-17-2025 Albumin DL <= 20 mg/L (U) [Mass/Vol] mg/dL Normal [facility] Comment on above: Order Comment: Speci men Type: URINE SPECIMENOrdering Facility: [facility] Address: [address] [place] [address] Performed By: #### U ACR ####[facility] LABCLIA [id number] [address] [place] Albumin/Creatinine (U) [Mass ratio] <7 Normal <30 [facility] Comment on above: Order Comment: Speci men Type: URINE SPECIMENOrdering Facility: [facility] Address: [address] [place] [address] Result Comment: Adul t Male and Female Nephrotic Criteria: <30 mg/g is considered normal to mildly increased 30-300 mg/g is considered moderately increased >300 mg/g is considered severely increased KDIGO. (2013). KDIGO 2012 Clinical Practice Guideline for the Evaluation and Management of Chronic Kidney Disease. Official Journal of the International Society of Nephrology, 3(1), 1-150. Performed By: #### U ACR ####[facility] LABCLIA [id number] [place] [id number] [place] Creatinine (U) [Mass/Vol] 162.1 mg/dL Normal 20.0-300.0 [facility] Comment on above: Order Comment: Speci men Type: URINE SPECIMENOrdering Facility: [facility] Address: [address] [place] [address] Performed By: #### U ACR ####[facility] LABCLIA [id number] [place] [id number] [place] CNOVon 04-17-2025 CNOV Office Visit (FAMPWS ) ----- KELLIE KANG I ([id number]) 1965 F T Date Time Provider Department 04/17/25 10:20 [facility] visit today, we recorded the following information about you: Temperature Pulse Respiration Blood pressure 98.6 degrees 72/minute 20/minute 128/88 Weight Height 85.4 kg 1.575 m Werner Baptiste MD 04/17/2025 10:54 AM Signed Family Medicine OUTPATIENT VISIT April 17, 2025 CC: Establish care HPI: 60 year old female patient with a history of Former smoker (45 pack yr) Hx Limited stage small cell lung cancer, metastatic, completed chemo and radiation cisplatin etoposide 08/26 COPD Chronic pain on Tylenol-codeine for chronic back pain. Followed by pain management. CKD 3a IBS on colace Knee OA, follows with ortho Here to establish care First diagnosed in 2022. Remission 05/26. Undergoing workup with onc for PET scan with pretracheal lymph node with mild increased uptake. On his review of imaging, there is inflammation around the biceps tendon. Possible getting biopsy in June if repeat CT showing enlarging nodes. Very mild shortness of breath when doing very strenusous exercises but never chest pain, coughing, wheezing, fevers, chills, and this is not progressive. Normal stress test 03/26. 05/26 spirometry normal test vs mild obstruction. 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 GENERAL: No weight loss, or fevers HEENT: Negative for frequent or significant headaches RESPIRATORY: Negative for cough, wheezing, shortness of breath CARDIOVASCULAR: Negative for chest pain, palpitations, PND or orthopnea GI: No nausea, vomiting, or diarrhea or abdominal pain. No IA bleeding or melana : No history of dysuria, frequency, urgency, or change in urine appearance NEURO: No history of headaches,, weakness, or changes to vision or hearing Health maintenance: Depression Screening Never done Anxiety Screening Never done HIV Screening Never done Lipid Screening Never done Shingrix Vaccine(1 of 2) Never done Pneumococcal Vaccine: 50+(1 of 1 - PCV) Never done Covid-19 Vaccine(2024- season) due on 03/03/2025 Mammogram Screening due on 06/02/2025 Allergies: ALLERGIES No Known Allergies Medications: lidocaine-prilocaine (EMLA) 2.5-2.5 % cream Apply to affected area as needed. cholecalciferol (VITAMIN D-3) 50 mcg (2,000 unit) tablet Take 1 tablet by mouth once daily. acetaminophen with codeine (TYLENOL-CODEINE #3 ORAL) Take by mouth as needed. docusate sodium (COLACE) 100 mg capsule Take 100 mg by mouth once daily. acetaminophen (TYLENOL) 325 mg tablet Take 650 mg by mouth every 6 hours as needed. vitamin B complex (B COMPLEX ORAL) Take 1 tablet by mouth once daily. Blood Pressure Test Kit-Large Use as directed for blood pressure monitoring iv contrast (will be provided with radiology test) CT Chest W -Inject, intravenously, once for 1 dose.No IV access, insert saline lock prior to the beginning of sedation, infusion, injection of imaging exam. Discontinue saline lock post exam. If Pt. has a central line or IVAD, may access for administration according to line specific nursing protocol. Once exam is complete flush line and de-access according to line specific nursing protocol in the CT contrast administration guidelines link. iv contrast (will be provided with radiology test) CT ABD/PEL -Inject, intravenously, once for 1 dose.No IV access, insert saline lock prior to the beginning of sedation, infusion, injection of imaging exam. Discontinue saline lock post exam. If Pt. has a central line or IVAD, may access for administration according to line specific nursing protocol. Once exam is complete flush line and de-access according to line specific nursing protocol in the CT contrast administration guidelines link. 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 Normal [facility] HIV 1+2 Ab IA Qlon 5 HIV 1 and 2 Ab IA.rapid Nom (S/P/Bld) Normal [facility] Comment on above: Order Comment: Speci men Type: BLOOD SPECIMENOrdering Facility: [facility] Address: [address] [place] [address] Result Comment: Test not indicated. Performed By: #### 3 1201-7 ####[facility] LABCLIA [id number] [place] [address] [place] HIV 1+2 Ab+HIV1 p24 Ag IA Ql Non-Reactive Normal Nonreactive [facility] Comment on above: Order Comment: Speci men Type: BLOOD SPECIMENOrdering Facility: [facility] Address: [address] [place] [address] Performed By: #### 3 1201-7 ####[facility] LABCLIA [id number] [place] [address] [place] HIV immunoassay testing algorithm interpretation (S/P/Bld) [Interp] Normal [facility] Comment on above: Order Comment: Speci men Type: BLOOD SPECIMENOrdering Facility: [facility] Address: [address] [place] [address] Result Comment: No e vidence of HIV-1 or HIV-2 infection. Should recent infection be suspected, repeat testing may be considered 2-3 weeks after this draw. [place] Rev. Code 3701.243(E): This information has been disclosed to you from confidential records protected from disclosure by state law. You shall make no further disclosure of this information without the specific, written, and informed release of the individual to whom it pertains or as otherwise permitted by state law. A general authorization for the release of medical or other information is not sufficient for the purpose of the release of HIV test results or diagnoses. Performed By: #### 3 1201-7 ####[facility] LABCLIA [id number] [address] [place] HbA1c (Bld)on 04-17-2025 Average glucose Estimated from glycated hemoglobin (Bld) [Mass/Vol] 111 mg/dL Normal [facility] Comment on above: Order Comment: Speci men Type: BLOOD SPECIMENOrdering Facility: [facility] Address: [address] [place] [address] Result Comment: eAG: (Estimated average glucose) is a calculated value from HgbA1c and is product sales representative of the average blood glucose level in the last 2-3 month period. Performed By: #### 5 5454-3 ####[facility] LABCLIA [id number] [place] [address] [place] HbA1c (Bld) [Mass fraction] 5.5 % Normal 4.3-5.6 [facility] Comment on above: Order Comment: Speci tana Type: BLOOD SPECIMENOrdering Facility: [facility] [facility] Address: [address] [place] [address] Result Comment: Amer [place] Diabetes Association guidelines indicate that patients with HgbA1c in the range 5.7-6.4% are at increased risk for development of diabetes, and intervention by lifestyle modification may be beneficial. HgbA1c greater or equal to 6.5% is considered diagnostic of diabetes. Performed By: #### 5 5454-3 ####[facility] LABCLIA [id number] [address] LIPID PANEL, NONFASTINGon Cholesterol [Mass/Vol] 254 mg/dL High <200 [facility] Comment on above: Order Comment: Speci men Type: BLOOD SPECIMENOrdering Facility: [facility] Address: [address] [place] [address] Result Comment: <200 mg/dL, Desirable 200-239 mg/dL, Borderline high >239 mg/dL, High Performed By: #### L IPNF ####[facility] LABCLIA [id number] [address] HDL CHOLESTEROL, NF 48 mg/dL Normal >39 [facility] Comment on above: Order Comment: Speci men Type: BLOOD SPECIMENOrdering Facility: [facility] Address: [address] [place] [address] Result Comment: 40-5 9 mg/dL, Acceptable >59 mg/dL, High: Negative risk factor for coronary heart disease <40 mg/dL, Low: Positive risk factor for coronary heart disease Performed By: #### L IPNF ####[facility] LABCLIA [id number] [address] LDL CHOLESTEROL CALCULATED, NF 180 mg/dL High <100 [facility] Comment on above: Order Comment: Speci men Type: BLOOD SPECIMENOrdering Facility: [facility] Address: [address] [place] [address] Result Comment: <100 mg/dL, Optimal 100-129 mg/dL, Near optimal/above optimal 130-159 mg/dL, Borderline high 160-189 mg/dL, High >189 mg/dL, Very high Secondary prevention optimal LDL Cholesterol levels are recommended to be <70 mg/dL LDL cholesterol is calculated using the Bills-NIH equation. Performed By: #### L IPNF ####[facility] LABCLIA [id number] [address] LDL/HDL RATIO, NF 3.75 mg/dL High <2.54 [facility] Comment on above: Order Comment: Speci men Type: BLOOD SPECIMENOrdering Facility: [facility] Address: [address] [place] [address] Result Comment: Neelam morillo: 1. National Cholesterol Education Program ATP III Guideline At-A-Glance Quick Desk Reference: National Heart, Lung, and Blood [place]. National Institutes of Health. 2001: NIH Publication No. 01-3305. 2. An International Atherosclerosis Society position paper: global recommendations for the management of dyslipidemia: executive summary, Atherosclerosis. 2014: 232(2):410-413. Performed By: #### L IPNF ####[facility] LABCLIA [id number] [place] [address] [place] NON HDL CHOL, NF 206 mg/dL High <130 [facility] Comment on above: Order Comment: Speci men Type: BLOOD SPECIMENOrdering Facility: [facility] Address: [address] [place] [address] Result Comment: <130 mg/dL, Optimal 130-159 mg/dL, Near optimal/above optimal 160-189 mg/dL, Borderline high 190-219 mg/dL, High >219 mg/dL, Very high Secondary prevention optimal non HDL Cholesterol levels are recommended to be <100 mg/dL Performed By: #### L IPNF ####[facility] LABCLIA [id number] [place] [address] [place] T CHOL/HDL RATIO NF 5.29 mg/dL High <5.10 [facility] Comment on above: Order Comment: Speci men Type: BLOOD SPECIMENOrdering Facility: [facility] Address: [address] [place] [address] Performed By: #### L IPNF ####[facility] LABCLIA [id number] [place] [address] [place] TRIGLYCERIDES, NF 144 mg/dL Normal <150 [facility] Comment on above: Order Comment: Speci men Type: BLOOD SPECIMENOrdering Facility: [facility] Address: [address] [place] [address] Result Comment: <150 mg/dL, Normal 150-199 mg/dL, Borderline high 200-499 mg/dL, High >499 mg/dL, Very high Performed By: #### L IPNF ####[facility] LABCLIA [id number] [place] [address] [place] VLDL CHOLESTEROL, NF 29 mg/dL Normal <30 [facility] Comment on above: Order Comment: Speci men Type: BLOOD SPECIMENOrdering Facility: [facility] Address: [address] [place] [address] Performed By: #### L IPNF ####[facility] LABCLIA [id number] [address] [facility] CNOVSPon 04-15-2025 CNOVSP Visit (SP) Office (HEMAWS) ----- KELLIE KANG I ([id number]) 1965 F T Date Time Provider Department 04/15/25 10:50 AM [facility] During your visit today, we recorded the following information about you: Temperature Pulse Respiration Blood pressure 97.1 degrees 66/minute 12/minute 130/77 Weight 86.6 kg Raven East DO 04/17/2025 1:51 PM Signed Oncologic problem(s): 1) Limited stage small cell lung cancer. HPI: The patient is a 60-year-old female former smoker who under presented for evaluation of right neck mass. Right lower neck mass for about a month. Saw Dr. Lara who ordered CT neck. She had a CT of the neck with contrast enhancement on 05/12/2023. This study revealed a nodule in the thyroid, right-sided gland measuring 9 x 6 mm. There is heterogeneity versus second nodule in the left thyroid. Measurements were not rendered. There was right supraclavicular adenopathy, level 4B measuring 4.1 x 2.0 cm. There is mass effect and moderate narrowing of the right jugular vein and an adjacent enlarged lymph node measuring 1.3 x 1.6 cm. There is brachial enlarged lymph nodes measuring 1.3 x 1.3. Note was made of anterior cervical fusion hardware and previous discectomy changes at L5-6. Emphysematous changes were noted in the lung apices. Patient underwent FNA of the right-sided cervical adenopathy on 05/19/2023. Pathology: Positive for malignant cells. 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 Per initial consultation: had Covid. She got symptoms 05/24. Tested positive that day. Sore throat, headache, fever and malaise. Symptoms resolved except fatigue. No change in chronic cough from COPD. Rarely productive. Wheezes ( calls her wheezy). Mild JO. Hasn't had to stop any activity. 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 No issues with stairs, etc. Normal appetite. Neck pain. Pain in right chest (3-4 years; stress test okay). Used to come and go. Now seems to radiate down from the neck mass. COPE in right occipital area. Comes and go for about month. Quit smoking at time of diagnosis. Smoked a ppd for about 45 years. No alcohol. . Three older children. Previous therapy: 1) Concurrent chemotherapy and radiation with cisplatin etoposide. Completed chemotherapy 08/31/2023. Presents for ongoing oncologic management. Interim history: Still getting migratory COPE. Persisting a little longer, but relived with Tylenol. Still has trouble with thinking of the right words. Fatigued. 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 Discontinue saline lock post exam. If Pt. has a central line or IVAD, may access for administration according to line specific nursing protocol. Once exam is complete flush line and de-access according to line specific nursing protocol in the CT contrast administration guidelines link. iv contrast (will be provided with radiology test) CT ABD/PEL -Inject, intravenously, once for 1 dose.No IV access, insert saline lock prior to the beginning of sedation, infusion, injection of imaging exam. Discontinue saline lock post exam. If Pt. has a central line or IVAD, may access for administration according to line specific nursing protocol. Once exam is complete flush line and de-access according to line specific nursing protocol in the CT contrast administration guidelines link. enteric contrast (will be provided with radiology test) For CT ABD/PEL W IVCON Routine order Administer, As Directed One Time Only, via Oral, Rectal, both Oral and Rectal, Enteric Tube, Stoma or Indwelling Catheter, Enteric Contrast as designated per enteric contrast guidelines acetaminophen with codeine (TYLENOL-CODEINE #3 ORAL) Take by mouth as needed. cholecalciferol, vitamin D3, (VITAMIN D3 ORAL) Take 50 mcg by mouth once daily. docusate sodium (COLACE) 100 mg capsule Take 100 mg by mouth once daily. acetaminophen (TYLENOL) 325 mg tablet Take 650 mg by mouth every 6 hours as needed. vitamin B complex (B COMPLEX ORAL) Take 1 tablet by mouth once daily. No current facility-administer (more content not included)... Normal [facility] PET/CT SKULL-THIGH SUBQon 04-06-2025 CT PET/CT SKULL-THIGH SUBQ * * *Final Report* * * DATE OF EXAM: Apr 06 2025 12:49PM [facility] 0063 - CT PET/CT SKULL-THIGH SUBQ / PROCEDURE REASON: multiple diagnoses * * * * Physician Interpretation * * * * EXAMINATION: BODY FDG PET-CT CLINICAL HISTORY: Small cell lung cancer EXAM CATEGORY: Subsequent treatment strategy. TECHNIQUE: Radiopharmaceutical was administered intravenously followed by PET imaging from the eyes to thighs. Free breathing, low dose CT of the same body region was acquired without IV contrast for attenuation correction and anatomic localization. Unenhanced imaging is limited for the evaluation of some pathology and the acquired CT was not designed to produce diagnostic CT scan quality. Physiologic/non-pathologi c uptake in some body regions could confound or obscure some pathology. * CT Dose-Length Product (DLP): 463 mGy*cm * CT Dose Reduction Employed: Yes * Blood glucose: 118 mg/dL * Injection site: Right Hand * Injected activity: 9 mCi * Uptake Time: 56 minutes * Radiopharmaceutical: I76-Whxotcnmxstssqpzvb (FDG) COMPARISON: 06/05/2023 CORRELATION: 02/13/2025 CT neck chest abdomen pelvis reports RESULT: REFERENCES: FDG uptake is used as a surrogate marker for glucose metabolism. All reported standardized uptake values represent maximum SUV (SUVmax) per body weight, unless otherwise specified. SUV reference values, as follows: * Blood Pool (Descending Aorta): SUVmax 3.2 * Background Liver: SUVmax 2.7; SUVmean 2.7 Localizer Images: No additional findings. HEAD AND NECK: Head: No radiotracer avid lesion or mass effect in the imaged intracranial compartment. Aerodigestive Tract: No radiotracer avid lesion. Lymph Nodes: No radiotracer avid lymphadenopathy. Neck Soft Tissues: No radiotracer avid thyroid nodule. CHEST: Please see report of the recent cross-sectional imaging for additional morphologic details. Lungs and Pleura: No focal abnormal uptake, including the right upper lobe. No pleural effusion. Lymph Nodes: Near-complete resolved prior lymphadenopathy. Approximately 0.5 cm short axis precarinal node with SUV max 4.4 on image 90, previously 3 cm SUV max 12.2 Cardiovascular: Blood pool activity. No pericardial effusion. Normal heart size. Chest Wall: No radiotracer avid soft tissue lesion. ABDOMEN AND PELVIS: Please see report of the recent cross-sectional imaging for additional morphologic details. Hepatobiliary: No radiotracer avid lesion. No measurable mass. Spleen: No radiotracer avid lesion. No splenomegaly. Pancreas: No radiotracer avid lesion. Adrenals: No radiotracer avid nodule. Urinary Tract: Physiologic radiotracer excretion in the renal collecting systems and urinary bladder. No hydronephrosis. GI Tract: No radiotracer avid lesion. No bowel dilation. Peritoneum: No radiotracer avid lesion. No ascites. Lymph Nodes: No radiotracer avid lymphadenopathy. Vasculature: Blood pool activity. Pelvic Organs: No radiotracer avid lesion. MUSCULOSKELETAL: Bones: Approximately 0.8 cm calcific density at the junction of the biceps musculature and the proximal right humeral diaphysis with SUV max 5.1 on image 37, previously similar in size with SUV max 1.1, favored to be inflammatory/musculoskele maxwell in origin. Soft Tissues: No radiotracer avid lesion. IMPRESSION Since 06/05/2023, PRIMARY DISEASE SITE: * No new/worsening pulmonary parenchymal lesion. BOUCHRA DISEASE: * Near completely resolved prior cervical and intrathoracic lymphadenopathy. * 0.5 cm residual, substantially improved, precarinal finding can be assessed on follow-up studies. METASTATIC DISEASE: * No metabolically active distant metastases. ADDITIONAL FINDINGS: * Approximately 0.8 cm calcific density at the junction of the biceps musculature and the proximal right humeral diaphysis is favored to be inflammatory/reactive in origin. MRI confirmation, as clinically indicated. Countersinker Balance Screw Hole: PSCB Transcribe Date/Time: Apr 08 2025 9:13A Dictated by : FUENTES RIVERA MD This examination was interpreted and the report reviewed and electronically signed by: FUENTES RIVERA MD on Apr 08 2025 9:26AM EST [id number] [facility] ----- EKLLIE KANG I ([id number]) 1965 F [facility] Date Time Provider Department 03/21/25 [facility] During your visit today, we recorded the following information about you: Carla Cruz 03/21/2025 10:54 AM Signed Patient called stating she seen her lab results on my chart and is concerned with them. She is feeling very tired. Please review and call patient when able Nelly Montenegro LPN 03/21/2025 12:14 PM Signed Patient c/o fatigue, low energy, sob with exertion and lightheadedness for the last several months, nothing new. Denies chest pain and dizziness. She saw her RBC and creatinine results and was concerned. Patient is aware we are waiting on her iron studies. ANGELLA Wood Paul A, DO 03/21/2025 5:11 PM Signed Overall the creatinine has been fairly stable since about early 2023. The anemia is mild and I do not suspect that it is a significant factor in the overall fatigue. The increase in ferritin suggest underlying inflammation. The only other test I can think that would help determine what is driving that would be a PET scan. Hopefully insurance will cover. I filed the order. Please schedule OV after PET scan. DO Venkatesh Lara Pamela S, LPN 03/24/2025 12:08 PM Signed Spoke with pt. Discussed recent test results informed the only other test Dr. East can think of to determine what is driving her fatigue may be a PET scan. PSS please reach out to get pt. Scheduled for PET and OV afterwards. ANGELLA Agrawal Brandy 03/24/2025 1:28 PM Signed I called and spoke to patient and scheduled her for the PET scan at [facility] for Monday04/06/25 @ 11:30 am/12:30 pm and then follow-up with 04/15/25 @ 10:50 am, she confirmed these dates, times and locations Ritu Crane Pss Allergies As of Date: 03/21/2025 (No Known Allergies) Date Reviewed: 03/20/2025 Reviewed by: Raven East DO - Fully Assessed Reason for Visit: Results [95] Primary Visit Diagnosis:Malignant neoplasm of unspecified part of unspecified bronchus or lung (HCC) [C34.90] Other Visit Diagnoses:Small cell lung cancer, unspecified laterality (HCC) [C34.90] 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 Discontinue saline lock post exam. If Pt. has a central line or IVAD, may access for administration according to line specific nursing protocol. Once exam is complete flush line and de-access according to line specific nursing protocol in the CT contrast administration guidelines link. - iv contrast (will be provided with radiology test) CT ABD/PEL -Inject, intravenously, once for 1 dose.No IV access, insert saline lock prior to the beginning of sedation, infusion, injection of imaging exam. Discontinue saline lock post exam. If Pt. has a central line or IVAD, may access for administration according to line specific nursing protocol. Once exam is complete flush line and de-access according to line specific nursing protocol in the CT contrast administration guidelines link. - enteric contrast (will be provided with radiology test) For CT ABD/PEL W IVCON Routine order Administer, As Directed One Time Only, via Oral, Rectal, both Oral and Rectal, Enteric Tube, Stoma or Indwelling Catheter, Enteric Contrast as designated per enteric contrast guidelines - acetaminophen with codeine (TYLENOL-CODEINE #3 ORAL) Take by mouth as needed. - cholecalciferol, vitamin D3, (VITAMIN D3 ORAL) Take 50 mcg by mouth once daily. - docusate sodium (COLACE) 100 mg capsule Take 100 mg by mouth once daily. - acetaminophen (TYLENOL) 325 mg tablet Take 650 mg by mouth every 6 hours as needed. - vitamin B complex (B COMPLEX ORAL) Take 1 tablet by mouth once daily. 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*08/17/2023 Acute right-sided low back pain without sciatic*06/11/2024 Encounter Status:Closed by RITU SOTO on 03/24/25 Normal [facility] CBC W Auto Differential pane l (Bld)on 03-20-2025 Basophils (Bld) [#/Vol] 0.07 10*3/uL Normal <0.11 [facility] Comment on above: Order Comment: Speci men Type: BLOOD SPECIMENOrdering Facility: [facility] Address: [address] [place] [address] [place] [address] Performed By: #### 5 2321-8 ####[facility] NIMISHAWNCLIA [id number] [place] [address] [place] Basophils/100 WBC (Bld) 1.4 % Normal [facility] Comment on above: Order Comment: Speci men Type: BLOOD SPECIMENOrdering Facility: [facility] Address: [address] [place] [address] Performed By: #### 5 7021-8 ####[facility] EVANGELINAMONTICELLOANA MLIA [id number] [place] [address] [place] Differential cell count method Nom (Bld) Auto Normal [facility] Comment on above: Order Comment: Speci men Type: BLOOD SPECIMENOrdering Facility: [facility] Address: [address] [place] [address] Performed By: #### 5 7021-8 ####[facility] MSIERRAA [id number] [place] [address] [place] Eosinophils (Bld) [#/Vol] 0.09 10*3/uL Normal <0.46 [facility] Comment on above: Order Comment: Speci men Type: BLOOD SPECIMENOrdering Facility: [facility] Address: [address] [place] [address] Performed By: #### 5 7021-8 ####[facility] MLIA [id number] [place] [address] [place] Eosinophils/100 WBC (Bld) 1.8 % Normal [facility] Comment on above: Order Comment: Speci men Type: BLOOD SPECIMENOrdering Facility: [facility] Address: [address] [place] [address] Performed By: #### 5 7021-8 ####[facility]CLIA [id number] [place] [address] [place] Erythrocyte distribution width (RBC) [Ratio] 12.9 % Normal 11.5-15.0 [facility] Comment on above: Order Comment: Speci men Type: BLOOD SPECIMENOrdering Facility: [facility] Address: [address] [place] [address] Performed By: #### 5 7021-8 ####[facility] [id number] [place] [address] [place] Hematocrit (Bld) [Volume fraction] 35.2 % Low 36.0-46.0 [facility] Comment on above: Order Comment: Speci men Type: BLOOD SPECIMENOrdering Facility: [facility] Address: [address] [place] [address] Performed By: #### 5 7021-8 ####[facility] [id number] [place] [address] [place] Hemoglobin (Bld) [Mass/Vol] 11.9 g/dL Normal 11.5-15.5 [facility] Comment on above: Order Comment: Speci men Type: BLOOD SPECIMENOrdering Facility: [facility] Address: [address] [place] [address] Performed By: #### 5 7021-8 ####[facility]ERNCA [id number] [place] [address] [place] Immature granulocytes (Bld) [#/Vol] 10*3/uL Normal <0.10 [facility] Comment on above: Order Comment: Speci men Type: BLOOD SPECIMENOrdering Facility: [facility] Address: [address] [place] [address] Performed By: #### 5 7021-8 ####[facility] [id number] [place] [address] [place] Immature granulocytes/100 WBC (Bld) 0.2 % Normal [facility] Comment on above: Order Comment: Speci men Type: BLOOD SPECIMENOrdering Facility: [facility] Address: [address] [place] [address] Performed By: #### 5 7021-8 ####[facility] MILLWNCLIA [id number] [place] [address] [place] Lymphocytes (Bld) [#/Vol] 0.95 10*3/uL Low 1.00-4.00 [facility] Comment on above: Order Comment: Speci men Type: BLOOD SPECIMENOrdering Facility: [facility] Address: [address] [place] [address] Performed By: #### 5 7021-8 ####[facility] [id number] [place] [address] [place] Lymphocytes/100 WBC (Bld) 18.8 % Normal [facility] Comment on above: Order Comment: Speci men Type: BLOOD SPECIMENOrdering Facility: [facility] Address: [address] [place] [address] Performed By: #### 5 7021-8 ####[facility] [id number] [place] [address] [place] MCH (RBC) [Entitic mass] 31.2 pg Normal 26.0-34.0 [facility] Comment on above: Order Comment: Speci men Type: BLOOD SPECIMENOrdering Facility: [facility] Address: [address] [place] [address] Performed By: #### 5 7021-8 ####[facility] MILLMONTICELLONCLIA [id number] [place] [address] [place] MCHC (RBC) [Mass/Vol] 33.8 g/dL Normal 30.5-36.0 [facility] Comment on above: Order Comment: Speci men Type: BLOOD SPECIMENOrdering Facility: [facility] Address: [address] [place] [address] Performed By: #### 5 7021-8 ####[facility] [id number] [place] [address] [place] MCV (RBC) [Entitic vol] 92.1 fL Normal 80.0-100.0 [facility] Comment on above: Order Comment: Speci men Type: BLOOD SPECIMENOrdering Facility: [facility] Address: [address] [place] [address] Performed By: #### 5 7021-8 ####[facility] [id number] [place] [address] [place] Monocytes (Bld) [#/Vol] 0.44 10*3/uL Normal <0.87 [facility] Comment on above: Order Comment: Speci men Type: BLOOD SPECIMENOrdering Facility: [facility] [facility] Address: [address] [place] [address] Performed By: #### 5 7021-8 ####[facility] [id number] [place] [address] [place] Monocytes/100 WBC (Bld) 8.7 % Normal [facility] Comment on above: Order Comment: Speci men Type: BLOOD SPECIMENOrdering Facility: [facility] Address: [address] [place] [address] Performed By: #### 5 7021-8 ####[facility] [id number] [place] [address] [place] Neutrophils (Bld) [#/Vol] 3.49 10*3/uL Normal 1.45-7.50 [facility] Comment on above: Order Comment: Speci men Type: BLOOD SPECIMENOrdering Facility: [facility] Address: [address] [place] [address] Performed By: #### 5 7021-8 ####[facility] [id number] [place] [address] [place] Neutrophils/100 WBC (Bld) 69.1 % Normal [facility] Comment on above: Order Comment: Speci men Type: BLOOD SPECIMENOrdering Facility: [facility] Address: [address] [place] [address] Performed By: #### 5 7021-8 ####[facility] [id number] [place] [address] [place] Nucleated RBC (Bld) [#/Vol] 10*3/uL Normal <0.01 [facility] Comment on above: Order Comment: Speci men Type: BLOOD SPECIMENOrdering Facility: [facility] Address: [address] [place] [address] Performed By: #### 5 7021-8 ####[facility] [id number] [place] [address] [place] Nucleated RBC/100 WBC (Bld) [Ratio] 0.0 /100 WBC Normal [facility] Comment on above: Order Comment: Speci men Type: BLOOD SPECIMENOrdering Facility: [facility] Address: [address] [place] [address] Performed By: #### 5 7021-8 ####[facility] [id number] [place] [address] [place] Platelet mean volume (Bld) [Entitic vol] 8.8 fL Low 9.0-12.7 [facility] Comment on above: Order Comment: Speci men Type: BLOOD SPECIMENOrdering Facility: [facility] Address: [address] [place] [address] Performed By: #### 5 7021-8 ####[facility] [id number] [place] [address] [place] Platelets (Bld) [#/Vol] 234 10*3/uL Normal 150-400 [facility] Comment on above: Order Comment: Speci men Type: BLOOD SPECIMENOrdering Facility: [facility] Address: [address] [place] [address] Performed By: #### 5 7021-8 ####[facility] [id number] [place] [address] [place] RBC (Bld) [#/Vol] 3.82 10*6/uL Low 3.90-5.20 [facility] Comment on above: Order Comment: Speci men Type: BLOOD SPECIMENOrdering Facility: [facility] Address: [address] [place] [address] Performed By: #### 5 7021-8 ####[facility] [id number] [place] [address] [place] WBC (Bld) [#/Vol] 5.05 10*3/uL Normal 3.70-11.00 [facility] Comment on above: Order Comment: Speci men Type: BLOOD SPECIMENOrdering Facility: [facility] Address: [address] [place] [address] Performed By: #### 5 7021-8 ####[facility] [id number] [address] [place] CNOVSPon 03-20-2025 CNOVSP Visit (SP) Office (HEMAWS) ----- KELLIE KANG I ([id number]) 1965 F T Date Time Provider Department 03/20/25 12:30 PM [facility] During your visit today, we recorded the following information about you: Temperature Pulse Respiration Blood pressure 98.1 degrees 73/minute 12/minute 113/80 Weight 85.7 kg Raven [place] DO 03/20/2025 12:42 PM Signed Oncologic problem(s): 1) Limited stage small cell lung cancer. HPI: The patient is a 60-year-old female former smoker who under presented for evaluation of right neck mass. Right lower neck mass for about a month. Saw Dr. Lara who ordered CT neck. She had a CT of the neck with contrast enhancement on 05/12/2023. This study revealed a nodule in the thyroid, right-sided gland measuring 9 x 6 mm. There is heterogeneity versus second nodule in the left thyroid. Measurements were not rendered. There was right supraclavicular adenopathy, level 4B measuring 4.1 x 2.0 cm. There is mass effect and moderate narrowing of the right jugular vein and an adjacent enlarged lymph node measuring 1.3 x 1.6 cm. There is brachial enlarged lymph nodes measuring 1.3 x 1.3. Note was made of anterior cervical fusion hardware and previous discectomy changes at L5-6. Emphysematous changes were noted in the lung apices. Patient underwent FNA of the right-sided cervical adenopathy on 05/19/2023. Pathology: Positive for malignant cells. 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 Per initial consultation: had Covid. She got symptoms 05/24. Tested positive that day. Sore throat, headache, fever and malaise. Symptoms resolved except fatigue. No change in chronic cough from COPD. Rarely productive. Wheezes ( calls her wheezy). Mild JO. Hasn't had to stop any activity. 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 No issues with stairs, etc. Normal appetite. Neck pain. Pain in right chest (3-4 years; stress test okay). Used to come and go. Now seems to radiate down from the neck mass. COPE in right occipital area. Comes and go for about month. Quit smoking at time of diagnosis. Smoked a ppd for about 45 years. No alcohol. . Three older children. Previous therapy: 1) Concurrent chemotherapy and radiation with cisplatin etoposide. Completed chemotherapy 08/31/2023. Presents for ongoing oncologic management. Interim history: Stable dyspnea with stairs. Trying to lose weight. STM subjectively stable. Seeing CPM for chronic LBP. Had b/l lumbar medial branch block at L4-S1. Helped quite a bit. 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 cholecalciferol, vitamin D3, (VITAMIN D3 ORAL) Take 50 mcg by mouth once daily. docusate sodium (COLACE) 100 mg capsule Take 100 mg by mouth once daily. acetaminophen (TYLENOL) 325 mg tablet Take 650 mg by mouth every 6 hours as needed. vitamin B complex (B COMPLEX ORAL) Take 1 tablet by mouth once daily. No current facility-administered medications for this visit. Social History Tobacco Use Smoking status: Former Current packs/day: 0.00 Average packs/day: 1 pack/day for 45.0 years (45.0 ttl pk-yrs) Types: Cigarettes Start date: 05/27/1978 Quit date: 05/27/2023 Years since quittin.8 Smokeless tobacco: Never Vaping Use Vaping status: Never Used Substance Use Topics Alcohol use: No Drug use: No Family History Problem Relation Age of Onset Cancer Mother leukemia Heart Father [place] other (respiratory failure) Sister Genitourinary () Paternal Grandfather Mother age 51 from leukemia. ROS: Constitutional: Normal appetite. HEENT: No recent change in voice, vision or hearing. Resp: See above. CVS: No exertional chest pain, PND or orthopnea. No extremity swelling/edema. No symptoms of claudication. No painful or tender varicose veins. GI: No dysphagia or odynophagia. No reflux. IBS--has always tended more towards constipation. : No dysuria or gross hematuria. No symptoms of bladder outlet obstruction. Endo: No hot flashes. No polyuria or polydipsia. No heat or cold intolerance. Derm: No current rash. No history of jaundice. No diffuse pruritis. Heme: No unusual bleeding and unexplained bruising. Psych: Normal moo (more content not included)... Normal [facility] Comprehensive metabolic 2000 panelon 03-20-2025 Albumin [Mass/Vol] 4.3 g/dL Normal 3.9-4.9 [facility] Comment on above: Order Comment: Speci men Type: BLOOD SPECIMENOrdering Facility: [facility] Address: [address] [place] [address] Performed By: #### 2 4323-8 ####[facility] MILLWNCLIA [id number] [place] [address] [place] ALP [Catalytic activity/Vol] 61 U/L Normal 34-123 [facility] Comment on above: Order Comment: Speci men Type: BLOOD SPECIMENOrdering Facility: [facility] Address: [address] [place] [address] Performed By: #### 2 4323-8 ####[facility] [id number] [place] [address] [place] ALT [Catalytic activity/Vol] 15 U/L Normal 7-38 [facility] Comment on above: Order Comment: Speci men Type: BLOOD SPECIMENOrdering Facility: [facility] Address: [address] [place] [address] Performed By: #### 2 4323-8 ####[facility] [id number] [place] [address] [place] Anion gap [Moles/Vol] 12 mmol/L Normal 8-15 [facility] Comment on above: Order Comment: Speci men Type: BLOOD SPECIMENOrdering Facility: [facility] Address: [address] [place] [address] Performed By: #### 2 4323-8 ####[facility] [id number] [place] [address] [place] AST [Catalytic activity/Vol] 20 U/L Normal 13-35 [facility] Comment on above: Order Comment: Speci men Type: BLOOD SPECIMENOrdering Facility: [facility] Address: [address] [place] [address] Performed By: #### 2 4323-8 ####[facility] MILLTOWNCLIA [id number] [place] [address] [place] Bilirubin [Mass/Vol] 0.4 mg/dL Normal 0.2-1.3 [facility] Comment on above: Order Comment: Speci men Type: BLOOD SPECIMENOrdering Facility: [facility] Address: [address] [place] [address] Performed By: #### 2 4323-8 ####[facility] MILLTOWNCLIA [id number] [place] [address] [place] Calcium [Mass/Vol] 9.9 mg/dL Normal 8.5-10.2 [facility] Comment on above: Order Comment: Speci men Type: BLOOD SPECIMENOrdering Facility: [facility] Address: [address] [place] [address] Performed By: #### 2 4323-8 ####[facility] [id number] [place] [address] [place] Chloride [Moles/Vol] 104 mmol/L Normal 98-107 [facility] Comment on above: Order Comment: Speci men Type: BLOOD SPECIMENOrdering Facility: [facility] Address: [address] [place] [address] Performed By: #### 2 4323-8 ####[facility] MILLTOWNCLIA [id number] [place] [address] [place] CO2 [Moles/Vol] 22 mmol/L Normal 22-30 [facility] Comment on above: Order Comment: Speci men Type: BLOOD SPECIMENOrdering Facility: [facility] Address: [address] [place] [address] Performed By: #### 2 4323-8 ####[facility] MILLTOWNCLIA [id number] [place] [address] [place] Creatinine [Mass/Vol] 1.20 mg/dL High 0.58-0.96 [facility] Comment on above: Order Comment: Jamarcus fajardo Type: BLOOD SPECIMENOrdering Facility: [facility] Address: [address] [place] [address] Performed By: #### 2 4323-8 ####[facility] [id number] [place] [address] [place] eGFRcr SerPlBld CKD-EPI 2020 52 mL/min/1.73m??? Low >=60 [facility] Comment on above: Order Comment: Jamarcus fajardo Type: BLOOD SPECIMENOrdering Facility: [facility] Address: [address] [place] [address] Result Comment: Vani mated Glomerular Filtration Rate (eGFR) is calculated using the 2020 CKD-EPI creatinine equation. This equation utilizes serum creatinine, sex, and age as parameters. The creatinine assay has traceable calibration to isotope dilution-mass spectrometry. Refer to KDIGO guidelines for clinical interpretation. In patients with unstable renal function, e.g. those with acute kidney injury, the eGFR may not accurately reflect actual GFR. Performed By: #### 2 4323-8 ####[facility] [id number] [place] [address] [place] Glucose [Mass/Vol] 97 mg/dL Normal 74-99 [facility] Comment on above: Order Comment: Jamarcus fajardo Type: BLOOD SPECIMENOrdering Facility: [facility] Address: [address] [place] [address] Result Comment: The [place] [employer] (ADA) provides guidance for cutoff values for fasting glucose and random glucose. The ADA defines fasting as no caloric intake for at least 8 hours. Fasting plasma glucose results between 100 to 125 mg/dL indicate increased risk for diabetes (prediabetes). Fasting plasma glucose results greater than or equal to 126 mg/dL meet the criteria for diagnosis of diabetes. In the absence of unequivocal hyperglycemia, results should be confirmed by repeat testing. In a patient with classic symptoms of hyperglycemia or hyperglycemic crisis, random plasma glucose results greater than or equal to 200 mg/dL meet the criteria for diagnosis of diabetes. Reference: Standards of Medical Care in Diabetes 2016, [place] [employer]. Diabetes Care. 2016.39(Suppl 1). Performed By: #### 2 4323-8 ####[facility] [id number] [place] [address] [place] Potassium [Moles/Vol] 4.3 mmol/L Normal 3.7-5.1 [facility] Comment on above: Order Comment: Speci men Type: BLOOD SPECIMENOrdering Facility: [facility] Address: [address] [place], [place] [address] Performed By: #### 2 4323-8 ####[facility] [id number] [place] [address] [place] Protein [Mass/Vol] 7.3 g/dL Normal 6.3-8.0 [facility] Comment on above: Order Comment: Speci men Type: BLOOD SPECIMENOrdering Facility: [facility] Address: [address] [place] [address] Performed By: #### 2 4323-8 ####[facility] [id number] [place] [address] [place] Sodium [Moles/Vol] 138 mmol/L Normal 136-144 [facility] Comment on above: Order Comment: Speci men Type: BLOOD SPECIMENOrdering Facility: [facility] Address: [address] [place], [place] [address] Performed By: #### 2 4323-8 ####[facility] [id number] [place] [address] [place] Urea nitrogen [Mass/Vol] 13 mg/dL Normal 7-21 [facility] Comment on above: Order Comment: Speci men Type: BLOOD SPECIMENOrdering Facility: [facility] Address: [address] [place], [place] [address] Performed By: #### 2 4323-8 ####[facility] [id number] [place] [id number] [place] Ferritin SerPl-mCncon 2024 Ferritin [Mass/Vol] 582.0 ng/mL High 14.7-205.1 [facility] Comment on above: Order Comment: Speci men Type: BLOOD SPECIMENOrdering Facility: [facility] Address: [address] [place] [address] Performed By: #### 5 0190-8, 2276-4 ####[facility] LABIA [id number] [place] [address] [place] Iron and Iron binding capaci ty panelon 03-20-2025 Iron [Mass/Vol] 67 ug/dL Normal 41-186 [facility] Comment on above: Order Comment: Speci men Type: BLOOD SPECIMENOrdering Facility: [facility] Address: [address] [place] [address] Performed By: #### 5 0190-8, 2275-4 ####[facility] LABIA [id number] [address] [place] Iron binding capacity [Mass/Vol] 277 ug/dL Normal 232-386 [facility] Comment on above: Order Comment: Speci men Type: BLOOD SPECIMENOrdering Facility: [facility] Address: [address] [place] [address] Performed By: #### 5 0190-8, 2275-4 ####[facility] LABIA [id number] [place] [address] [place] Iron/TIBC [Molar ratio] 24.2 % Normal 15.0-57.0 [facility] Comment on above: Order Comment: Speci men Type: BLOOD SPECIMENOrdering Facility: [facility] Address: [address] [place] [address] Performed By: #### 5 0190-8, 2276-4 ####[facility] LABCLIA [id number] [place] [address] [place] MR Brain WO and W contrast I [place] 03-05-2025 IMPRESSION: 1. NO SUSPICIOUS SIGNAL LATERALITY OR ENHANCEMENT TO SUGGEST METASTASIS 2. NEW WIDESPREAD WHITE MATTER SIGNAL ABNORMALITY, POSSIBLY TREATMENT EFFECT Countersinker Balance Screw Hole: PSCB Transcribe Date/Time: Mar 05 2025 3:19P Dictated by : SHIVA WAYNE MD This examination was interpreted and the report reviewed and electronically signed by: SHIVA WAYNE MD on Mar 05 2025 3:30PM [facility] DIVISION OF RADIOLOGY * * *Final Report* * * DATE OF EXAM: Mar 05 2025 3:18PM [facility] 0295 - MRI BRAIN WO/W IVCON / PROCEDURE REASON: multiple diagnoses * * * * Physician Interpretation * * * * EXAMINATION: MRI BRAIN WO/W IVCON CLINICAL HISTORY: Metastatic small cell carcinoma, thyroid and soft tissue lesions, chemoradiation. Memory loss, confusion TECHNIQUE: Routine brain MRI protocol without and with contrast including diffusion images. MQ: MRBWOW_2 Contrast: 8.5 mL Elucirem IV COMPARISON: None. RESULT: Acute Change: There is no evidence of restricted diffusion to suggest an acute infarct. Hemorrhage: No evidence of prior parenchymal hemorrhage on the susceptibility weighted images. Mass Lesion/ Mass Effect: No evidence of an intracranial mass or extra-axial fluid collection. No abnormal parenchymal or leptomeningeal enhancement is noted following contrast administration. No significant mass effect. Chronic Change: There is the new appearance of symmetric deep white matter signal hyperintensity on T2/FLAIR, different from the prior nonspecific White matter change. This more likely reflects treatment effect. Parenchyma: No significant volume loss for age. The brain parenchyma is otherwise within normal limits of signal intensity and morphology. Ventricles: Normal caliber and morphology. Skull Base: Hypothalamic and pituitary region are grossly normal. Craniocervical junction is normal. No significant marrow replacement process. Vasculature: Major intracranial arterial structures, and dural venous sinuses show typical flow void, suggesting patency by spin echo criteria. Other: The visualized paranasal sinuses and mastoid air cells are clear. The orbits and extracranial soft tissues are unremarkable. DIVISION OF RADIOLOGY Provider, [facility] - 03/05/2025 * * *Final Report* * * DATE OF EXAM: Mar 05 2025 3:18PM [facility] 294 - MRI BRAIN WO/W IVCON / PROCEDURE REASON: multiple diagnoses * * * * Physician Interpretation * * * * EXAMINATION: MRI BRAIN WO/W IVCON CLINICAL HISTORY: Metastatic small cell carcinoma, thyroid and soft tissue lesions, chemoradiation. Memory loss, confusion TECHNIQUE: Routine brain MRI protocol without and with contrast including diffusion images. MQ: MRBWOW_2 Contrast: 8.5 mL Elucirem IV COMPARISON: None. RESULT: Acute Change: There is no evidence of restricted diffusion to suggest an acute infarct. Hemorrhage: No evidence of prior parenchymal hemorrhage on the susceptibility weighted images. Mass Lesion/ Mass Effect: No evidence of an intracranial mass or extra-axial fluid collection. No abnormal parenchymal or leptomeningeal enhancement is noted following contrast administration. No significant mass effect. Chronic Change: There is the new appearance of symmetric deep white matter signal hyperintensity on T2/FLAIR, different from the prior nonspecific White matter change. This more likely reflects treatment effect. Parenchyma: No significant volume loss for age. The brain parenchyma is otherwise within normal limits of signal intensity and morphology. Ventricles: Normal caliber and morphology. Skull Base: Hypothalamic and pituitary region are grossly normal. Craniocervical junction is normal. No significant marrow replacement process. Vasculature: Major intracranial arterial structures, and dural venous sinuses show typical flow void, suggesting patency by spin echo criteria. Other: The visualized paranasal sinuses and mastoid air cells are clear. The orbits and extracranial soft tissues are unremarkable. IMPRESSION IMPRESSION: 1. NO SUSPICIOUS SIGNAL LATERALITY OR ENHANCEMENT TO SUGGEST METASTASIS 2. NEW WIDESPREAD WHITE MATTER SIGNAL ABNORMALITY, POSSIBLY TREATMENT EFFECT Countersinker Balance Screw Hole: KACIE Transcribe Date/Time: Mar 05 2025 3:19P Dictated by : SHIVA WAYNE MD This examination was interpreted and the report reviewed and electronically signed by: SHIVA WAYNE MD on Mar 05 2025 3:30PM EST [facility] Radiology Study observation (narrative) [facility] MR Brain WO and W contrast I VOrdered By: [facility] Provider on 03-05-2025 [facility] MRI BRAIN WO/W IVCONon 03-05 MRI BRAIN WO/W IVCON * * *Final Report* * * DATE OF EXAM: Mar 05 2025 3:18PM [facility] 0295 - MRI BRAIN WO/W IVCON / PROCEDURE REASON: multiple diagnoses * * * * Physician Interpretation * * * * EXAMINATION: MRI BRAIN WO/W IVCON CLINICAL HISTORY: Metastatic small cell carcinoma, thyroid and soft tissue lesions, chemoradiation. Memory loss, confusion TECHNIQUE: Routine brain MRI protocol without and with contrast including diffusion images. MQ: MRBWOW_2 Contrast: 8.5 mL Elucirem IV COMPARISON: None. RESULT: Acute Change: There is no evidence of restricted diffusion to suggest an acute infarct. Hemorrhage: No evidence of prior parenchymal hemorrhage on the susceptibility weighted images. Mass Lesion/ Mass Effect: No evidence of an intracranial mass or extra-axial fluid collection. No abnormal parenchymal or leptomeningeal enhancement is noted following contrast administration. No significant mass effect. Chronic Change: There is the new appearance of symmetric deep white matter signal hyperintensity on T2/FLAIR, different from the prior nonspecific White matter change. This more likely reflects treatment effect. Parenchyma: No significant volume loss for age. The brain parenchyma is otherwise within normal limits of signal intensity and morphology. Ventricles: Normal caliber and morphology. Skull Base: Hypothalamic and pituitary region are grossly normal. Craniocervical junction is normal. No significant marrow replacement process. Vasculature: Major intracranial arterial structures, and dural venous sinuses show typical flow void, suggesting patency by spin echo criteria. Other: The visualized paranasal sinuses and mastoid air cells are clear. The orbits and extracranial soft tissues are unremarkable. IMPRESSION: 1. NO SUSPICIOUS SIGNAL LATERALITY OR ENHANCEMENT TO SUGGEST METASTASIS 2. NEW WIDESPREAD WHITE MATTER SIGNAL ABNORMALITY, POSSIBLY TREATMENT EFFECT Countersinker Balance Screw Hole: [facility] Transcribe Date/Time: Mar 05 2025 3:19P Dictated by : SHIVA WAYNE MD This examination was interpreted and the report reviewed and electronically signed by: SHIVA WAYNE MD on Mar 05 2025 3:30PM EST [id number] Normal [facility] Amaris 03-04-2025 GERALD Telephone (HEMMOSES) ----- THOMASKELLIE I ([id number]) 1965 F CHT Date Time Provider Department 03/04/25 [facility] During your visit today, we recorded the following information about you: Lei Palmer PSS 03/04/2025 1:40 PM Signed Pt would like to use port for appt on 03/05/25 for MRI @ 3PM Please call pt to confirm time Juliocesar Apple 03/04/2025 2:15 PM Signed Scheduled. Patient informed Allergies As of Date: 03/04/2025 (No Known Allergies) Date Reviewed: 02/28/2025 Reviewed by: Mandie Naylor RN - Fully Assessed Reason for Visit: Appointment [186] Prescriptions as of 03/04/2025 - acetaminophen with codeine (TYLENOL-CODEINE #3 ORAL) Take by mouth as needed. - cholecalciferol, vitamin D3, (VITAMIN D3 ORAL) Take 50 mcg by mouth once daily. - docusate sodium (COLACE) 100 mg capsule Take 100 mg by mouth once daily. - acetaminophen (TYLENOL) 325 mg tablet Take 650 mg by mouth every 6 hours as needed. - vitamin B complex (B COMPLEX ORAL) Take 1 tablet by mouth once daily. 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 Acute right-sided low back pain without sciatic*06/11/2024 Encounter Status:Closed by JULIOCESAR APPLE on 03/04/25 Normal [facility] Ferritin SerPl-mCncon 2024 Ferritin [Mass/Vol] 473.0 ng/mL High 14.7-205.1 [facility] Comment on above: Order Comment: Speci men Type: BLOOD SPECIMENOrdering Facility: [facility] Address: [address] [place] [address] Performed By: #### T 4FTI, 3016-3, 42586-3, 2275-4 ####[facility] LABIA [id number] [address] [address] [place] Iron and Iron binding capaci ty panelon 02-28-2025 Iron [Mass/Vol] 72 ug/dL Normal 41-186 [facility] Comment on above: Order Comment: Speci men Type: BLOOD SPECIMENOrdering Facility: [facility] Address: [address] [place] [address] Performed By: #### T 4FTI, 3016-3, 85732-1, 4 ####[facility] [id number] [place] [id number] [place] Iron binding capacity [Mass/Vol] 271 ug/dL Normal 232-386 [facility] Comment on above: Order Comment: Speci men Type: BLOOD SPECIMENOrdering Facility: [facility] Address: [address] [place] [address] Performed By: #### T 4FTI, 3016-3, 34520-7, 2275-4 ####[facility] [id number] [place] [id number] [place] Iron/TIBC [Molar ratio] 26.6 % Normal 15.0-57.0 [facility] Comment on above: Order Comment: Speci men Type: BLOOD SPECIMENOrdering Facility: [facility] Address: [address] [place] [address] Performed By: #### T 4FTI, 3016-3, 56985-4, 4 ####[facility] [id number] [place] [id number] [place] T4/FTI/T4Uon 02-28-2025 FTI 5.9 ug/dL Normal 5.3-10.8 [facility] Comment on above: Order Comment: Speci men Type: BLOOD SPECIMENOrdering Facility: [facility] Address: [address] [place] [address] Performed By: #### T 4FTI, 3016-3, 89579-8, 6-4 ####[facility] LABIA [id number] [place] [id number] [place] T4 [Mass/Vol] 6.7 ug/dL Normal 5.5-10.2 [facility] Comment on above: Order Comment: Speci men Type: BLOOD SPECIMENOrdering Facility: [facility] Address: [address] [place] [address] Performed By: #### T 4FTI, 3016-3, 44080-4, 6-4 ####[facility] LABIA [id number] [address] STATES OF [facility] T4 uptake [Mass/Vol] 1.13 Normal 0.91-1.19 [facility] Comment on above: Order Comment: Speci men Type: BLOOD SPECIMENOrdering Facility: [facility] Address: [address] [place] [address] Performed By: #### T 4FTI, 3016-3, 87171-3, 6-4 ####[facility] [id number] [address] [place] TSH SerPl-aCncon 02-28-2025 TSH Qn 2.670 m[IU]/L Normal 0.270-4.200 [facility] Comment on above: Order Comment: Speci men Type: BLOOD SPECIMENOrdering Facility: [facility] Address: [address] [place] [address] Performed By: #### T 4FTI, 3016-3, 82657-2, 6-4 ####[facility] LABIA [id number] [address] [place] BRIEF OP NOTon 02-24-2025 BRIEF OP NOT HNO ID: [id number] Author: ERNESTO MACE MD Service: Interventional Radiology Author Type: Physician Type: Brief Op Note Filed: 02/24/2025 10:21 Note Text: BRIEF OPERATIVE / PROCEDURE NOTE LOG ID: [id number] SURGERY/PROCEDURE DATE: 02/24/2025 INCISION/PROCEDURE START TIME: 10:02 AM INCISION CLOSE/PROCEDURE END TIME: 10:16 AM SURGEON(S)/PROCEDURALIST( S) AND CYCLE CONSULTANT(S): Surgeons and Role: * Ernesto Mace MD - Primary No Additional Staff Preoperative Concerns /Risks: None SURGERY/PROCEDURE(S): Venous port placement. ANESTHESIA: Procedural Sedation FINDINGS: Right infraclavicular venous chest port placed using right IJ vein access. ESTIMATED BLOOD LOSS: 3 mL SPECIMENS: None Intraoperative Complication/Events: None CLOSURE TECHNIQUE: Primary PRE-OP/PRE-PROCEDURE DIAGNOSIS: Small cell lung cancer. POST-OP/POST-PROCEDURE DIAGNOSIS: Same as Preop Patient was accompanied to the next level of care by a licensed practitioner from the surgical team pending completion of this brief op note (or operative note) SIGNATURE: Ernesto Mace MD PATIENT NAME: Kellie Kang DATE: February 24, 2025 TIME: 10:20 AM [facility] HISTORY PHYSICALon HISTORY PHYSICAL HNO ID: [id number] Author: ERNESTO MACE MD Service: Interventional Radiology Author Type: Physician Type: H&P Filed: 02/24/2025 09:52 Note Text: PROCEDURAL SEDATION HISTORY AND PHYSICAL EXAM SERVICE DATE: 02/24/2025 SERVICE TIME: 9:52 AM Subjective HPI: This is a 60 year old female who presents with small cell lung cancer. 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 02/23/2025 Yes cholecalciferol, vitamin D3, (VITAMIN D3 ORAL) Take 50 mcg by mouth once daily. 02/23/2025 Yes docusate sodium (COLACE) 100 mg capsule Take 100 mg by mouth once daily. 02/23/2025 Yes acetaminophen (TYLENOL) 325 mg tablet Take 650 mg by mouth every 6 hours as needed. 02/23/2025 Yes vitamin B complex (B COMPLEX ORAL) Take 1 tablet by mouth once daily. 02/23/2025 Yes ALLERGIES No Known Allergies Objective PHYSICAL EXAM: The remainder of the physical exam is noncontributory. AIRWAY: Mouth opening greater than 3 fingerbreadths: Yes Neck Full Range of Motion: Yes LUNGS: Lungs clear to auscultation CARDIAC: Regular rhythm,Regular rate ASA Class: ASA Class: Patient with mild systemic disease Assessment AND Plan Medication and Non-Pharmacologic VTE Prophylaxis/Anticoagulant s VTE Prophylaxis: VTE prophylaxis appropriate Provisional Diagnosis/Treatment Plan: Small cell lung cancer, for venous port placement. Sedation Goal: Moderate SIGNATURE: Ernesto Mace MD PATIENT NAME: Kellie Kang DATE: February 24, 2025 TIME: 9:52 AM [facility] IR PORTOCATH PLACEMENTon IR PORTOCATH PLACEMENT * * *Final Report* * * DATE OF EXAM: Feb 24 2025 10:16AM [facility] 0792 - IR PORTOCATH PLACEMENT / PROCEDURE REASON: Established Patient * * * * Physician Interpretation * * * * PROCEDURE: VENOUS PORT PLACEMENT Procedural Personnel Attending physician(s): Ernesto Mace M.D. Fellow physician(s): None Resident physician(s): None Advanced practice provider(s): None Medical Student(s): None Pre-procedure diagnosis: Small cell lung cancer Post-procedure diagnosis: Same Indication: Administration of chemotherapy Additional clinical history: None PROCEDURE SUMMARY: - Venous access with ultrasound guidance - Tunneled port insertion under fluoroscopic guidance - Additional procedure(s): None PROCEDURE DETAILS: Pre-procedure History and imaging of central venous access reviewed (QCDR): Yes Consent: Risks, benefits, treatment options, potential complications and personnel to be involved were discussed (including the risks of radiation exposure, contrast and anesthesia administration, and any equipment needed for the procedure to ensure best possible outcome) with the patient and all questions were answered and consent was obtained prior to procedure. Transfusion of blood products: No Medication reconciliation: The patient's medications and allergies were reviewed in the electronic medical record and reconciled to the proposed procedure/treatment. Michelle-procedure discussion: The appropriate elements of the pre-procedure discussion, safety check list and sign-out were performed. Time out: A time out was performed immediately prior to procedure start with the nursing and interventional team, correctly identifying the name, date of , procedure, anatomy (including marking of site and side if applicable), patient position, procedure consent form, relevant diagnostic and radiology test results, antibiotic administration if applicable, safety precautions, and procedure-specific equipment needs. Start of procedure: 1002 End of procedure: 1016 Patient position: Supine Antibiotics: None Antibiotic infusion start time: N/A Prophylactic antibiotic administered: None Preparation (MIPS): The site was prepared and draped using all elements of maximal sterile barrier technique including sterile gloves, sterile gown, cap, mask, large sterile sheet, sterile ultrasound probe cover, hand hygiene and cutaneous antisepsis with 2% chlorhexidine. Medical reason for site preparation exception (MIPS): Not applicable FLUOROSCOPIC RADIATION SUMMARY: Plane A, Air Kerma: 0.3 mGy Dose Area Product (DAP): 0.106 Gy-cm2 Fluoro Time: 0:06 min:sec Radiation dose exceed 5 Gy: No If radiation dose exceeded 5 Gy, was counseling and instructional brochure provided: N/A Anesthesia/sedation Level of anesthesia/sedation: Moderate sedation (conscious sedation) Anesthesia/sedation administered by: Independent trained observer under attending supervision with continuous monitoring of the patient?s level of consciousness and physiologic status Total intra-service sedation time (minutes): 16 Local anesthesia: 2 % lidocaine Access Local anesthesia was administered. The vessel was sonographically evaluated and determined to be patent. Real time ultrasound was used to visualize needle entry into the vessel and a permanent image was stored. Vein accessed: Internal jugular vein Access technique: Micropuncture set with 21 gauge needle Venography Indication for venography: Not performed Vein catheterized: Not applicable Findings: Not applicable Port placement An incision was made at the upper chest, a pocket was created, and the catheter was tunneled subcutaneously to the venous access site and trimmed to appropriate length. The port was inserted into the pocket and the catheter was advanced via a peel-away sheath into the vein under fluoroscopic guidance. The port was sutured into the pocket using non-absorbable suture. Catheter tip location was fluoroscopically verified and a permanent image was stored. Port placed: 8 F Vaccess power injectable port. Catheter tip position: Cavoatrial junction Unique Device Identifier: Not available Catheter flush: Normal saline Closure The access site and incision were closed and sterile dressing(s) were applied. Access site closure technique: Absorbable suture and tissue adhesive Incision closure technique: Absorbable suture and tissue adhesive Patient discharged from procedure suite with device accessed: No Additional Details Additional description of procedure: None Equipment details: None Specimens removed: None Estimated blood loss (mL): Less than 10 Standardized report: [id number] The patient tolerated the procedure well. The patient was comfortable and was transferred to the recovery room in stable condition. Complications There were no immediate complications and no other complications. Attestation Sig (more content not included)... [facility] 02-21-[address] [facility] Telephone ([place]) ----- KELLIE KANG I ([id number]) 1965 F T Date Time Provider Department 02/21/25 LEESA HILLMAN During your visit today, we recorded the following information about you: Allergies As of Date: 02/21/2025 (No Known Allergies) Date Reviewed: 02/20/2025 Reviewed by: Gayatri Ward MA - Fully Assessed Reason for Visit: Radiology Pre Procedure Instructions [1506] Cmt: Medport insertion Prescriptions as of 02/26/2025 - acetaminophen with codeine (TYLENOL-CODEINE #3 ORAL) Take by mouth as needed. - cholecalciferol, vitamin D3, (VITAMIN D3 ORAL) Take 50 mcg by mouth once daily. - docusate sodium (COLACE) 100 mg capsule Take 100 mg by mouth once daily. - acetaminophen (TYLENOL) 325 mg tablet Take 650 mg by mouth every 6 hours as needed. - vitamin B complex (B COMPLEX ORAL) Take 1 tablet by mouth once daily. 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) *06/02/2023 Mild protein-calorie malnutrition (HCC) [E44.1] 07/04/2023 Antineoplastic chemotherapy induced anemia [D64*08/17/2023 Acute right-sided low back pain without sciatic*06/11/2024 Encounter Status:Closed by LEESA HILLMAN on 02/26/25 Normal [facility] PT panel Coag (PPP)Ordered B y: Samia Mendes on 02-21-2025 INR Coag (PPP) [Relative time] 1.0 {INR} 0.9 - 1.3 [facility] Comment on above: Vitamin K Antagonist (VKA) Therapeutic Range: INR 2 to 3 (Target INR of 2.5) Note: For patients treated with VKA drugs, such as warfarin, the [employer] 2012 Guideline recommends a therapeutic INR range of 2 to 3 (target INR of 2.5). This recommendation includes high-risk patients with antiphospholipid syndrome with previous arterial or venous thromboembolism, current-generation mechanical or bioprosthetic aortic heart valve replacement. Note: Patients with mechanical aortic valve replacement and additional risk factors for thromboembolic events (atrial fibrillation, previous thromboembolism, LV dysfunction, hypercoagulable conditions) or an older generation mechanical AVR (i.e., ball in-Cage) or any mechanical MVR should have a INR therapeutic range of 2.5 to 3.5 (target INR of 3). Petra GH, et al. Chest 2012, 141:7S-47S Franklin RA, et al. [facility] 2017, 70: 252-289 Interpretation and review of laboratory results Normal [facility] PT Coag (PPP) [Time] 10.2 s NINF [facility] PT panel Coag (PPP)on 2024 INR Coag (PPP) [Relative time] 1.0 {INR} Normal 0.9-1.3 [facility] Comment on above: Order Comment: Speci men Type: BLOOD SPECIMENOrdering Facility: [facility] Address: [address] [place] [address] [place] [address] Result Comment: Grecia min K Antagonist (VKA) Therapeutic Range: INR 2 to 3 (Target INR of 2.5) Note: For patients treated with VKA drugs, such as warfarin, the [employer] 2012 Guideline recommends a therapeutic INR range of 2 to 3 (target INR of 2.5). This recommendation includes high-risk patients with antiphospholipid syndrome with previous arterial or venous thromboembolism, current-generation mechanical or bioprosthetic aortic heart valve replacement. Note: Patients with mechanical aortic valve replacement and additional risk factors for thromboembolic events (atrial fibrillation, previous thromboembolism, LV dysfunction, hypercoagulable conditions) or an older generation mechanical AVR (i.e., ball in-Cage) or any mechanical MVR should have a INR therapeutic range of 2.5 to 3.5 (target INR of 3). Petra GH, et al. Chest 2012, 141:7S-47S Franklin RA, et al. [facility] 2017, 70: 252-289 Performed By: #### 3 4528-0 ####[facility] [id number] [place] [address] [place] PT Coag (PPP) [Time] 10.2 s Normal <13.1 [facility] Comment on above: Order Comment: Speci men Type: BLOOD SPECIMENOrdering Facility: [facility] Address: [address] [place] [address] Performed By: #### 3 4528-0 ####[facility] [id number] [place] [address] [place] CNOVSPon 02-20-2025 CNOVSP Visit (SP) Office (HEMAWS) ----- KELLIE KANG I ([id number]) 1965 F T Date Time Provider Department 02/20/25 11:30 RAVEN HUBER During your visit today, we recorded the following information about you: Temperature Pulse Blood pressure Weight 97.6 degrees 64/minute 117/74 85.3 kg Height 1.632 m Raven East DO 02/23/2025 5:40 PM Signed Oncologic problem(s): 1) Limited stage small cell lung cancer. HPI: The patient is a 60-year-old female former smoker who under presented for evaluation of right neck mass. Right lower neck mass for about a month. Saw Dr. Lara who ordered CT neck. She had a CT of the neck with contrast enhancement on 05/12/2023. This study revealed a nodule in the thyroid, right-sided gland measuring 9 x 6 mm. There is heterogeneity versus second nodule in the left thyroid. Measurements were not rendered. There was right supraclavicular adenopathy, level 4B measuring 4.1 x 2.0 cm. There is mass effect and moderate narrowing of the right jugular vein and an adjacent enlarged lymph node measuring 1.3 x 1.6 cm. There is brachial enlarged lymph nodes measuring 1.3 x 1.3. Note was made of anterior cervical fusion hardware and previous discectomy changes at L5-6. Emphysematous changes were noted in the lung apices. Patient underwent FNA of the right-sided cervical adenopathy on 05/19/2023. Pathology: Positive for malignant cells. 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 Per initial consultation: had Covid. She got symptoms 05/24. Tested positive that day. Sore throat, headache, fever and malaise. Symptoms resolved except fatigue. No change in chronic cough from COPD. Rarely productive. Wheezes ( calls her wheezy). Mild JO. Hasn't had to stop any activity. 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 No issues with stairs, etc. Normal appetite. Neck pain. Pain in right chest (3-4 years; stress test okay). Used to come and go. Now seems to radiate down from the neck mass. COPE in right occipital area. Comes and go for about month. Quit smoking at time of diagnosis. Smoked a ppd for about 45 years. No alcohol. . Three older children. Previous therapy: 1) Concurrent chemotherapy and radiation with cisplatin etoposide. Completed chemotherapy 08/31/2023. Presents for ongoing oncologic management. Interim history: Seeing Dr. Melchor for CPM. Has noticed a decline in energy. No more micro headaches. Gets occasional COPE more concentrated retro-orbital area and move toward the taoist. More forgetful and mildly confused at times. 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 cholecalciferol, vitamin D3, (VITAMIN D3 ORAL) Take 50 mcg by mouth once daily. iv contrast (will be provided with radiology test) CT Chest W -Inject, intravenously, once for 1 dose.No IV access, insert saline lock prior to the beginning of sedation, infusion, injection of imaging exam. Discontinue saline lock post exam. If Pt. has a central line or IVAD, may access for administration according to line specific nursing protocol. Once exam is complete flush line and de-access according to line specific nursing protocol in the CT contrast administration guidelines link. iv contrast (will be provided with radiology test) CT ABD/PEL -Inject, intravenously, once for 1 dose.No IV access, insert saline lock prior to the beginning of sedation, infusion, injection of imaging exam. Discontinue saline lock post exam. If Pt. has a central line or IVAD, may access for administration according to line specific nursing protocol. Once exam is complete flush line and de-access according to line specific nursing protocol in the CT contrast administration guidelines link. enteric contrast (will be provided with radiology test) For CT ABD/PEL W IVCON Routine order Administer, As Directed One Time Only, via Oral, Rectal, both Oral and Rectal, Enteric Tube, Stoma or Indwelling Catheter, Enteric Contrast as designated per enteric contrast guidelines docusate sodium (COLACE) 100 mg capsule Take 100 mg by mouth once daily. acetaminophen (TYLENOL) 325 mg tablet Take 650 mg by mouth every 6 hours as needed. vitamin B complex (B COMPLEX ORAL) (more content not included)... Normal [facility] CNPNon 02-20-2025 CNPN Telephone (HEMAWS) ----- KELLIE KANG I ([id number]) 1965 F T Date Time Provider Department 02/20/25 R[facility]EN EAST HEMAWS During your visit today, we recorded the following information about you: Carla Cruz 02/24/2025 11:59 AM Signed Opened in error Allergies As of Date: 02/20/2025 (No Known Allergies) Date Reviewed: 02/20/2025 Reviewed by: Gayatri Ward MA - Fully Assessed Prescriptions as of 02/24/2025 - acetaminophen with codeine (TYLENOL-CODEINE #3 ORAL) Take by mouth as needed. - cholecalciferol, vitamin D3, (VITAMIN D3 ORAL) Take 50 mcg by mouth once daily. - docusate sodium (COLACE) 100 mg capsule Take 100 mg by mouth once daily. - acetaminophen (TYLENOL) 325 mg tablet Take 650 mg by mouth every 6 hours as needed. - vitamin B complex (B COMPLEX ORAL) Take 1 tablet by mouth once daily. 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) *06/02/2023 Mild protein-calorie malnutrition (HCC) [E44.1] 07/04/2023 Antineoplastic chemotherapy induced anemia [D64*08/17/2023 Acute right-sided low back pain without sciatic*06/11/2024 Encounter Status:Closed by CARLA CRUZ on 02/24/25 Normal [facility] CBC W Auto Differential pane l (Bld)on 02-13-2025 Basophils (Bld) [#/Vol] 0.07 10*3/uL Normal <0.11 [facility] Comment on above: Order Comment: Speci men Type: BLOOD SPECIMENOrdering Facility: [facility] Address: [address] [place] [address] Performed By: #### 5 7021-8 ####[facility] MILLTOWNCLIA [id number] [place] [address] [place] Basophils/100 WBC (Bld) 0.9 % Normal [facility] Comment on above: Order Comment: Speci men Type: BLOOD SPECIMENOrdering Facility: [facility] Address: [address] [place] [address] Performed By: #### 5 7021-8 ####[facility]ITALWNCLIA [id number] [place] [address] [place] Differential cell count method Nom (Bld) Auto Normal [facility] Comment on above: Order Comment: Speci men Type: BLOOD SPECIMENOrdering Facility: [facility] Address: [address] [place] [address] Performed By: #### 5 7021-8 ####[facility]ITALWNCLIA [id number] [place] [address] [place] Eosinophils (Bld) [#/Vol] 0.18 10*3/uL Normal <0.46 [facility] Comment on above: Order Comment: Speci men Type: BLOOD SPECIMENOrdering Facility: [facility] Address: [address] [place] [address] Performed By: #### 5 7021-8 ####[facility] MILLTOWNCLIA [id number] [place] [address] [place] Eosinophils/100 WBC (Bld) 2.3 % Normal [facility] Comment on above: Order Comment: Speci men Type: BLOOD SPECIMENOrdering Facility: [facility] Address: [address] [place] [address] Performed By: #### 5 7021-8 ####[facility] [id number] [place] [address] [place] Erythrocyte distribution width (RBC) [Ratio] 13.1 % Normal 11.5-15.0 [facility] Comment on above: Order Comment: Speci men Type: BLOOD SPECIMENOrdering Facility: [facility] Address: [address] [place] [address] Performed By: #### 5 7021-8 ####[facility] [id number] [place] [address] [place] Hematocrit (Bld) [Volume fraction] 37.9 % Normal 36.0-46.0 [facility] Comment on above: Order Comment: Speci men Type: BLOOD SPECIMENOrdering Facility: [facility] Address: [address] [place] [address] Performed By: #### 5 7021-8 ####[facility] [id number] [place] [address] [place] Hemoglobin (Bld) [Mass/Vol] 12.5 g/dL Normal 11.5-15.5 [facility] Comment on above: Order Comment: Speci men Type: BLOOD SPECIMENOrdering Facility: [facility] Address: [address] [place] [address] Performed By: #### 5 7021-8 ####[facility] [id number] [place] [address] [place] Immature granulocytes (Bld) [#/Vol] 0.05 10*3/uL Normal <0.10 [facility] Comment on above: Order Comment: Speci men Type: BLOOD SPECIMENOrdering Facility: [facility] Address: [address] [place] [address] Performed By: #### 5 7021-8 ####[facility] [id number] [place] [address] [place] Immature granulocytes/100 WBC (Bld) 0.6 % Normal [facility] Comment on above: Order Comment: Speci men Type: BLOOD SPECIMENOrdering Facility: [facility] Address: [address] [place] [address] Performed By: #### 5 7021-8 ####[facility] [id number] [place] [address] [place] Lymphocytes (Bld) [#/Vol] 1.48 10*3/uL Normal 1.00-4.00 [facility] Comment on above: Order Comment: Speci men Type: BLOOD SPECIMENOrdering Facility: [facility] Address: [address] [place] [address] Performed By: #### 5 7021-8 ####[facility] [id number] [place] [address] [place] Lymphocytes/100 WBC (Bld) 18.5 % Normal [facility] Comment on above: Order Comment: Speci men Type: BLOOD SPECIMENOrdering Facility: [facility] Address: [address] [place] [address] Performed By: #### 5 7021-8 ####[facility] [id number] [place] [address] [place] MCH (RBC) [Entitic mass] 30.7 pg Normal 26.0-34.0 [facility] Comment on above: Order Comment: Speci men Type: BLOOD SPECIMENOrdering Facility: [facility] Address: [address] [place] [address] Performed By: #### 5 7021-8 ####[facility] [id number] [place] [address] [place] MCHC (RBC) [Mass/Vol] 33.0 g/dL Normal 30.5-36.0 [facility] Comment on above: Order Comment: Speci men Type: BLOOD SPECIMENOrdering Facility: [facility] Address: [address] [place] [address] Performed By: #### 5 7021-8 ####[facility] EVANGELINAMONTICELLODARYA [id number] [place] [address] [place] MCV (RBC) [Entitic vol] 93.1 fL Normal 80.0-100.0 [facility] Comment on above: Order Comment: Speci men Type: BLOOD SPECIMENOrdering Facility: [facility] Address: [address] [place] [address] Performed By: #### 5 7021-8 ####[facility] [id number] [place] [address] [place] Monocytes (Bld) [#/Vol] 0.62 10*3/uL Normal <0.87 [facility] Comment on above: Order Comment: Speci men Type: BLOOD SPECIMENOrdering Facility: [facility] Address: [address] [place] [address] Performed By: #### 5 7021-8 ####[facility]ENTERA [id number] [place] [address] [place] Monocytes/100 WBC (Bld) 7.8 % Normal [facility] Comment on above: Order Comment: Speci men Type: BLOOD SPECIMENOrdering Facility: [facility] Address: [address] [place] [address] Performed By: #### 5 7021-8 ####[facility] [id number] [place] [address] [place] Neutrophils (Bld) [#/Vol] 5.58 10*3/uL Normal 1.45-7.50 [facility] Comment on above: Order Comment: Speci men Type: BLOOD SPECIMENOrdering Facility: [facility] Address: [address] [place] [address] Performed By: #### 5 7021-8 ####[facility] EVANGELINAJUAN CARLOSA [id number] [place] [address] [place] Neutrophils/100 WBC (Bld) 69.9 % Normal [facility] Comment on above: Order Comment: Speci men Type: BLOOD SPECIMENOrdering Facility: [facility] Address: [address] [place] [address] Performed By: #### 5 7021-8 ####[facility]ENTERDARYA [id number] [place] [address] [place] Nucleated RBC (Bld) [#/Vol] 10*3/uL Normal <0.01 [facility] Comment on above: Order Comment: Speci men Type: BLOOD SPECIMENOrdering Facility: [facility] Address: [address] [place] [address] Performed By: #### 5 7021-8 ####[facility] [id number] [place] [address] [place] Nucleated RBC/100 WBC (Bld) [Ratio] 0.0 /100 WBC Normal [facility] Comment on above: Order Comment: Speci men Type: BLOOD SPECIMENOrdering Facility: [facility] Address: [address] [place] [address] Performed By: #### 5 7021-8 ####[facility]ITALSIERRAA [id number] [place] [address] [place] Platelet mean volume (Bld) [Entitic vol] 9.3 fL Normal 9.0-12.7 [facility] Comment on above: Order Comment: Speci men Type: BLOOD SPECIMENOrdering Facility: [facility] Address: [address] [place] [address] Performed By: #### 5 7021-8 ####[facility]ENTERNCLIA [id number] [place] [address] [place] Platelets (Bld) [#/Vol] 256 10*3/uL Normal 150-400 [facility] Comment on above: Order Comment: Speci men Type: BLOOD SPECIMENOrdering Facility: [facility] Address: [address] [place] [address] Performed By: #### 5 7021-8 ####[facility]ENTERNCLIA [id number] [place] [address] [place] RBC (Bld) [#/Vol] 4.07 10*6/uL Normal 3.90-5.20 [facility] Comment on above: Order Comment: Speci men Type: BLOOD SPECIMENOrdering Facility: [facility] Address: [address] [place] [address] Performed By: #### 5 7021-8 ####[facility]ENTERNCA [id number] [place] [address] [place] WBC (Bld) [#/Vol] 7.98 10*3/uL Normal 3.70-11.00 [facility] Comment on above: Order Comment: Speci men Type: BLOOD SPECIMENOrdering Facility: [facility] Address: [address] [place] [address] Performed By: #### 5 7021-8 ####[facility]ENTERNCLIA [id number] [place] [address] [place] ABD/PEL W IVCONon 02-13- 025 CT ABD/PEL W IVCON * * *Final Report* * * DATE OF EXAM: Feb 13 2025 10:41AM [facility] 0530 - CT ABD/PEL W IVCON / PROCEDURE REASON: multiple diagnoses * * * * Physician Interpretation * * * * EXAMINATION: CHEST CT WITH CONTRAST CLINICAL HISTORY: Lung carcinoma Technique: Spiral CT acquisition of the chest from the thoracic inlet to the upper abdomen following IV contrast. MQ: CTCW_6 Contrast: 150 mL Omnipaque [address] Radiation dose: Integrated Dose-length product (DLP) for this visit = cap 837 mGy*cm CT Dose Reduction Employed: Automated exposure control(AEC) and iterative recon Comparison: 10/30/2024 CT RESULT: Limitations: None. Lines, tubes, and devices: None. Lung parenchyma and airways: No consolidation. No suspicious pulmonary nodule. The central airways are patent. Pleural space: No pleural effusion. No pleural thickening. Lower neck, lymph nodes, and mediastinum: The imaged thyroid gland is normal. Stable mild precarinal ill-defined soft tissue. Image 137 series 8. No developing lymphadenopathy in the supraclavicular, axillary, mediastinal, or hilar regions. Heart, pericardium, and thoracic vessels: The thoracic aorta and main pulmonary artery are normal in caliber. The cardiac chambers are normal in size. No coronary artery atherosclerotic calcifications are noted, although the study is not optimized for coronary assessment. No pericardial effusion or thickening. Bones and soft tissues: No destructive bone lesion. Chest wall is unremarkable. Degenerative changes Upper abdomen: CT abdomen and pelvis dictated separately Localizer images: No additional findings. IMPRESSION: Stable post treatment chest No developing mass or adenopathy in the chest EXAMINATION: CT ABDOMEN AND PELVIS WITH IV CONTRAST CLINICAL HISTORY: Lung carcinoma TECHNIQUE: CT of the abdomen and pelvis was performed using standard technique, scanning from just above the dome of the diaphragm to the symphysis pubis. MQ: CTAP_3 Contrast: IV: 150 ml of Omnipaque 350 Oral: 10 ml of Omni 240 10-25ml diluted with water CT Radiation dose: Integrated Dose-length product (DLP) for this visit = cap 837 mGy*cm. CT Dose Reduction Employed: Automated exposure control(AEC) and iterative recon COMPARISON: CT 10/30/2024. RESULT: Liver: No developing or suspicious mass. Biliary: No bile duct dilation. Gallbladder is unremarkable. Spleen: No mass. No splenomegaly. Pancreas: No mass or duct dilation. Adrenals: No mass. Kidneys: Stable small cysts. Areas of renal cortical scarring. No suspicious renal lesion or gross obstructive uropathy GI tract: No dilation or wall thickening. Lymph nodes: No abdominal or pelvic lymphadenopathy. Mesentery/Peritoneum: No ascites or mass. Retroperitoneum: No mass. Vasculature: - Abdominal aorta and iliac arteries: Atherosclerotic calcifications without aneurysm. - Celiac and SMA: Patent without stenosis. - Portal venous system (SMV, splenic vein, portal vein and branches): Patent. - Hepatic veins: Patent. Pelvis: No mass, ascites or fluid collection. Bones/Soft Tissues: Degenerative changes. Lower thorax: A chest CT performed will be reported separately. Localizer images: No additional findings. IMPRESSION: No developing suspicious mass or adenopathy within the abdomen or pelvis Countersinker Balance Screw Hole: KACIE Transcribe Date/Time: Feb 21 2025 7:38A Dictated by : JIAN METZGER MD This examination was interpreted and the report reviewed and electronically signed by: JIAN METZGER MD on Feb 21 2025 7:53AM EST [id number] Normal [facility] CT CHEST W IVCONon CT CHEST W IVCON * * *Final Report* * * DATE OF EXAM: Feb 13 2025 10:41AM [facility] 0539 - CT CHEST W IVCON / PROCEDURE REASON: multiple diagnoses * * * * Physician Interpretation * * * * EXAMINATION: CHEST CT WITH CONTRAST CLINICAL HISTORY: Lung carcinoma Technique: Spiral CT acquisition of the chest from the thoracic inlet to the upper abdomen following IV contrast. MQ: CTCW_6 Contrast: 150 mL Omnipaque [address] Radiation dose: Integrated Dose-length product (DLP) for this visit = cap 837 mGy*cm CT Dose Reduction Employed: Automated exposure control(AEC) and iterative recon Comparison: 10/30/2024 CT RESULT: Limitations: None. Lines, tubes, and devices: None. Lung parenchyma and airways: No consolidation. No suspicious pulmonary nodule. The central airways are patent. Pleural space: No pleural effusion. No pleural thickening. Lower neck, lymph nodes, and mediastinum: The imaged thyroid gland is normal. Stable mild precarinal ill-defined soft tissue. Image 137 series 8. No developing lymphadenopathy in the supraclavicular, axillary, mediastinal, or hilar regions. Heart, pericardium, and thoracic vessels: The thoracic aorta and main pulmonary artery are normal in caliber. The cardiac chambers are normal in size. No coronary artery atherosclerotic calcifications are noted, although the study is not optimized for coronary assessment. No pericardial effusion or thickening. Bones and soft tissues: No destructive bone lesion. Chest wall is unremarkable. Degenerative changes Upper abdomen: CT abdomen and pelvis dictated separately Localizer images: No additional findings. IMPRESSION: Stable post treatment chest No developing mass or adenopathy in the chest EXAMINATION: CT ABDOMEN AND PELVIS WITH IV CONTRAST CLINICAL HISTORY: Lung carcinoma TECHNIQUE: CT of the abdomen and pelvis was performed using standard technique, scanning from just above the dome of the diaphragm to the symphysis pubis. MQ: CTAP_3 Contrast: IV: 150 ml of Omnipaque 350 Oral: 10 ml of Omni 240 10-25ml diluted with water CT Radiation dose: Integrated Dose-length product (DLP) for this visit = cap 837 mGy*cm. CT Dose Reduction Employed: Automated exposure control(AEC) and iterative recon COMPARISON: CT 10/30/2024. RESULT: Liver: No developing or suspicious mass. Biliary: No bile duct dilation. Gallbladder is unremarkable. Spleen: No mass. No splenomegaly. Pancreas: No mass or duct dilation. Adrenals: No mass. Kidneys: Stable small cysts. Areas of renal cortical scarring. No suspicious renal lesion or gross obstructive uropathy GI tract: No dilation or wall thickening. Lymph nodes: No abdominal or pelvic lymphadenopathy. Mesentery/Peritoneum: No ascites or mass. Retroperitoneum: No mass. Vasculature: - Abdominal aorta and iliac arteries: Atherosclerotic calcifications without aneurysm. - Celiac and SMA: Patent without stenosis. - Portal venous system (SMV, splenic vein, portal vein and branches): Patent. - Hepatic veins: Patent. Pelvis: No mass, ascites or fluid collection. Bones/Soft Tissues: Degenerative changes. Lower thorax: A chest CT performed will be reported separately. Localizer images: No additional findings. IMPRESSION: No developing suspicious mass or adenopathy within the abdomen or pelvis Countersinker Balance Screw Hole: [facility] Transcribe Date/Time: Feb 21 2025 7:38A Dictated by : JIAN METZGER MD This examination was interpreted and the report reviewed and electronically signed by: JIAN METZGER MD on Feb 21 2025 7:53AM EST [id number] Normal [facility] CT NECK SOFT TISSUE W IVCONo n 02-13-2025 CT NECK SOFT TISSUE W IVCON * * *Final Report* * * DATE OF EXAM: Feb 13 2025 10:41AM [facility] 0013 - CT NECK SOFT TISSUE W IVCON / PROCEDURE REASON: multiple diagnoses * * * * Physician Interpretation * * * * CT NECK SOFT TISSUE W IVCON CLINICAL HISTORY: Small cell carcinoma lung with prior cervical lymphadenopathy. TECHNIQUE: A series of contiguous helical scans were performed from the skull base to the aortic arch with intravenous contrast. Supplemental: N/A Contrast: Omnipaque 350. Contrast Dose: 150 cc Route of Administration: IV CT Radiation dose: Integrated Dose-length product (DLP) for this visit = neck 607 mGy*cm. CT Dose Reduction Employed: Automated exposure control(AEC) and iterative recon COMPARISON: 10/30/2024 RESULT: Localizer images: No additional findings. Postoperative/Treatment Change: Again noted is evidence of prior anterior cervical discectomy and fusion procedure at C5-6 stabilized by a ventral metallic plate and metallic screws. The hardware is intact. No evidence of loosening. Solid anterior bony fusion at C5-6. Aerodigestive tract: Normal. Major salivary glands: Normal. Thyroid gland: Normal. Lymph Nodes: No cervical lymphadenopathy by size criteria. No significant change. Carotid/Parapharyngeal/Re tropharyngeal Spaces: Patent extracranial carotid systems and internal jugular veins bilaterally. Otherwise normal. Orbits, Face and Skull Base: Paranasal sinuses, mastoid air cells, and middle ear cavities are clear. Otherwise normal. Imaged intracranial contents: The visualized brain parenchyma is within normal limits. No clear evidence of metastases in the visualized brain parenchyma. No abnormal intracranial parenchymal enhancement is noted otherwise in the visualized brain parenchyma.. Cervical spine and remaining osseous structures: No osteolytic or osteoblastic process. Postop changes following anterior cervical discectomy and fusion procedure at C5-6 as outlined above. Lung apices: For detailed intrathoracic findings, please see concurrent CT chest which is reported under a separate accession. Other: Not applicable. IMPRESSION: Stable appearance of the soft tissues of the neck since 10/30/2024. No evidence of a soft tissue mass or significant cervical lymphadenopathy by size criteria. Countersinker Balance Screw Hole: KACIE Transcribe Date/Time: Feb 13 2025 11:11A Dictated by : RAVEN GAFFNEY MD This examination was interpreted and the report reviewed and electronically signed by: RAVEN GAFFNEY MD on Feb 13 2025 11:21AM EST [id number] Normal [facility] CT Neck W contrast Marija 01-31 IMPRESSION: Stable appearance of the soft tissues of the neck since 10/30/2024. No evidence of a soft tissue mass or significant cervical lymphadenopathy by size criteria. Countersinker Balance Screw Hole: KACIE Transcribe Date/Time: Feb 13 2025 11:11A Dictated by : RAVEN GAFFNEY MD This examination was interpreted and the report reviewed and electronically signed by: RAVEN GAFFNEY MD on Feb 13 2025 11:21AM [facility] DIVISION OF RADIOLOGY * * *Final Report* * * DATE OF EXAM: Feb 13 2025 10:41AM [facility] 0013 - CT NECK SOFT TISSUE W IVCON / PROCEDURE REASON: multiple diagnoses * * * * Physician Interpretation * * * * CT NECK SOFT TISSUE W IVCON CLINICAL HISTORY: Small cell carcinoma lung with prior cervical lymphadenopathy. TECHNIQUE: A series of contiguous helical scans were performed from the skull base to the aortic arch with intravenous contrast. Supplemental: N/A Contrast: Omnipaque 350. Contrast Dose: 150 cc Route of Administration: IV CT Radiation dose: Integrated Dose-length product (DLP) for this visit = neck 607 mGy*cm. CT Dose Reduction Employed: Automated exposure control(AEC) and iterative recon COMPARISON: 10/30/2024 RESULT: Localizer images: No additional findings. Postoperative/Treatment Change: Again noted is evidence of prior anterior cervical discectomy and fusion procedure at C5-6 stabilized by a ventral metallic plate and metallic screws. The hardware is intact. No evidence of loosening. Solid anterior bony fusion at C5-6. Aerodigestive tract: Normal. Major salivary glands: Normal. Thyroid gland: Normal. Lymph Nodes: No cervical lymphadenopathy by size criteria. No significant change. Carotid/Parapharyngeal/Re tropharyngeal Spaces: Patent extracranial carotid systems and internal jugular veins bilaterally. Otherwise normal. Orbits, Face and Skull Base: Paranasal sinuses, mastoid air cells, and middle ear cavities are clear. Otherwise normal. Imaged intracranial contents: The visualized brain parenchyma is within normal limits. No clear evidence of metastases in the visualized brain parenchyma. No abnormal intracranial parenchymal enhancement is noted otherwise in the visualized brain parenchyma.. Cervical spine and remaining osseous structures: No osteolytic or osteoblastic process. Postop changes following anterior cervical discectomy and fusion procedure at C5-6 as outlined above. Lung apices: For detailed intrathoracic findings, please see concurrent CT chest which is reported under a separate accession. Other: Not applicable. DIVISION OF RADIOLOGY Provider, [facility] - 02/13/2025 * * *Final Report* * * DATE OF EXAM: Feb 13 2025 10:41AM [facility] 0013 - CT NECK SOFT TISSUE W IVCON / PROCEDURE REASON: multiple diagnoses * * * * Physician Interpretation * * * * CT NECK SOFT TISSUE W IVCON CLINICAL HISTORY: Small cell carcinoma lung with prior cervical lymphadenopathy. TECHNIQUE: A series of contiguous helical scans were performed from the skull base to the aortic arch with intravenous contrast. Supplemental: N/A Contrast: Omnipaque 350. Contrast Dose: 150 cc Route of Administration: IV CT Radiation dose: Integrated Dose-length product (DLP) for this visit = neck 607 mGy*cm. CT Dose Reduction Employed: Automated exposure control(AEC) and iterative recon COMPARISON: 10/30/2024 RESULT: Localizer images: No additional findings. Postoperative/Treatment Change: Again noted is evidence of prior anterior cervical discectomy and fusion procedure at C5-6 stabilized by a ventral metallic plate and metallic screws. The hardware is intact. No evidence of loosening. Solid anterior bony fusion at C5-6. Aerodigestive tract: Normal. Major salivary glands: Normal. Thyroid gland: Normal. Lymph Nodes: No cervical lymphadenopathy by size criteria. No significant change. Carotid/Parapharyngeal/Re tropharyngeal Spaces: Patent extracranial carotid systems and internal jugular veins bilaterally. Otherwise normal. Orbits, Face and Skull Base: Paranasal sinuses, mastoid air cells, and middle ear cavities are clear. Otherwise normal. Imaged intracranial contents: The visualized brain parenchyma is within normal limits. No clear evidence of metastases in the visualized brain parenchyma. No abnormal intracranial parenchymal enhancement is noted otherwise in the visualized brain parenchyma.. Cervical spine and remaining osseous structures: No osteolytic or osteoblastic process. Postop changes following anterior cervical discectomy and fusion procedure at C5-6 as outlined above. Lung apices: For detailed intrathoracic findings, please see concurrent CT chest which is reported under a separate accession. Other: Not applicable. IMPRESSION IMPRESSION: Stable appearance of the soft tissues of the neck since 10/30/2024. No evidence of a soft tissue mass or significant cervical lymphadenopathy by size criteria. Countersinker Balance Screw Hole: KACIE Transcribe Date/Time: Feb 13 2025 11:11A Dictated by : RAVEN GAFFNEY MD This examination was interpreted and the report reviewed and electronically signed by: RAVEN GAFFNEY MD on Feb 13 2025 11:21AM EST [facility] Radiology Study observation (narrative) [facility] CT Neck W contrast IVOrdered By: [facility] Provider on 02-13-2025 [facility] Comprehensive metabolic 2000 panelon 02-13-2025 Albumin [Mass/Vol] 4.6 g/dL Normal 3.9-4.9 [facility] Comment on above: Order Comment: Speci men Type: BLOOD SPECIMENOrdering Facility: [facility] Address: [address] [place] [address] Performed By: #### 2 4323-8 ####[facility] BARTOLOME MILLTOWNCLIA [id number] [place] [address] [place] ALP [Catalytic activity/Vol] 76 U/L Normal 34-123 [facility] Comment on above: Order Comment: Speci men Type: BLOOD SPECIMENOrdering Facility: [facility] Address: [address] [place] [address] Performed By: #### 2 4323-8 ####[facility] MILLTOWNCLIA [id number] [place] [address] [place] ALT [Catalytic activity/Vol] 16 U/L Normal 7-38 [facility] Comment on above: Order Comment: Speci men Type: BLOOD SPECIMENOrdering Facility: [facility] Address: [address] [place] [address] Performed By: #### 2 4323-8 ####[facility]PITALWNCLIA [id number] [place] [address] [place] Anion gap [Moles/Vol] 12 mmol/L Normal 8-15 [facility] Comment on above: Order Comment: Speci men Type: BLOOD SPECIMENOrdering Facility: [facility] Address: [address] [place] [address] Performed By: #### 2 4323-8 ####[facility] BARTOLOME MILLTOWNCLIA [id number] [place] [address] [place] AST [Catalytic activity/Vol] 18 U/L Normal 13-35 [facility] Comment on above: Order Comment: Speci men Type: BLOOD SPECIMENOrdering Facility: [facility] Address: [address] [place] [address] Performed By: #### 2 4323-8 ####[facility] BATROLOME DUARTESIERRAA [id number] [place] [address] [place] Bilirubin [Mass/Vol] 0.3 mg/dL Normal 0.2-1.3 [facility] Comment on above: Order Comment: Speci men Type: BLOOD SPECIMENOrdering Facility: [facility] Address: [address] [place] [address] Performed By: #### 2 4323-8 ####[facility] CENTERDARYA [id number] [place] [address] [place] Calcium [Mass/Vol] 9.7 mg/dL Normal 8.5-10.2 [facility] Comment on above: Order Comment: Speci men Type: BLOOD SPECIMENOrdering Facility: [facility] Address: [address] [place] [address] Performed By: #### 2 4323-8 ####[facility] EVANGELINAMONTICELLODARYA [id number] [place] [address] [place] Chloride [Moles/Vol] 107 mmol/L Normal 98-107 [facility] Comment on above: Order Comment: Speci men Type: BLOOD SPECIMENOrdering Facility: [facility] Address: [address] [place] [address] Performed By: #### 2 4323-8 ####[facility]ENTERNCLIA [id number] [place] [address] [place] CO2 [Moles/Vol] 20 mmol/L Low 22-30 [facility] Comment on above: Order Comment: Speci men Type: BLOOD SPECIMENOrdering Facility: [facility] Address: [address] [place] [address] Performed By: #### 2 4323-8 ####[facility]ITALWNCLIA [id number] [place] [address] [place] Creatinine [Mass/Vol] 1.32 mg/dL High 0.58-0.96 [facility] Comment on above: Order Comment: Speci men Type: BLOOD SPECIMENOrdering Facility: [facility] Address: [address] [place] [address] Performed By: #### 2 4323-8 ####[facility] CENTERNCLI [id number] [place] [address] [place] eGFRcr SerPlBld CKD-EPI 2020 46 mL/min/1.73m??? Low >=60 [facility] Comment on above: Order Comment: Speci men Type: BLOOD SPECIMENOrdering Facility: [facility] Address: [address] [place] [address] Result Comment: Vani mated Glomerular Filtration Rate (eGFR) is calculated using the 2020 CKD-EPI creatinine equation. This equation utilizes serum creatinine, sex, and age as parameters. The creatinine assay has traceable calibration to isotope dilution-mass spectrometry. Refer to KDIGO guidelines for clinical interpretation. In patients with unstable renal function, e.g. those with acute kidney injury, the eGFR may not accurately reflect actual GFR. Performed By: #### 2 4323-8 ####[facility]ENTERNCLIA [id number] [place] [address] [place] Glucose [Mass/Vol] 96 mg/dL Normal 74-99 [facility] Comment on above: Order Comment: Speci men Type: BLOOD SPECIMENOrdering Facility: [facility] Address: [address] [place] [address] Result Comment: The [place] [employer] (ADA) provides guidance for cutoff values for fasting glucose and random glucose. The ADA defines fasting as no caloric intake for at least 8 hours. Fasting plasma glucose results between 100 to 125 mg/dL indicate increased risk for diabetes (prediabetes). Fasting plasma glucose results greater than or equal to 126 mg/dL meet the criteria for diagnosis of diabetes. In the absence of unequivocal hyperglycemia, results should be confirmed by repeat testing. In a patient with classic symptoms of hyperglycemia or hyperglycemic crisis, random plasma glucose results greater than or equal to 200 mg/dL meet the criteria for diagnosis of diabetes. Reference: Standards of Medical Care in Diabetes 2016, [place] [employer]. Diabetes Care. 2016.39(Suppl 1). Performed By: #### 2 4323-8 ####[facility] BARTOLOME MILLTOWNCLIA [id number] [place] [address] [place] Potassium [Moles/Vol] 4.5 mmol/L Normal 3.7-5.1 [facility] Comment on above: Order Comment: Speci men Type: BLOOD SPECIMENOrdering Facility: [facility] Address: [address] [place] [address] Performed By: #### 2 4323-8 ####[facility] HOSPITALWARLIA [id number] [place] [address] [place] Protein [Mass/Vol] 7.5 g/dL Normal 6.3-8.0 [facility] Comment on above: Order Comment: Speci men Type: BLOOD SPECIMENOrdering Facility: [facility] Address: [address] [place] [address] Performed By: #### 2 4323-8 ####[facility]OSPITALLIA [id number] [place] [address] [place] Sodium [Moles/Vol] 139 mmol/L Normal 136-144 [facility] Comment on above: Order Comment: Speci men Type: BLOOD SPECIMENOrdering Facility: [facility] Address: [address] [place] [address] Performed By: #### 2 4323-8 ####[facility]ITALWNCLIA [id number] [place] [address] [place] Urea nitrogen [Mass/Vol] 33 mg/dL High 7-21 [facility] Comment on above: Order Comment: Jamarcus fajardo Type: BLOOD SPECIMENOrdering Facility: [facility] Address: [address] [place] [address] Performed By: #### 2 4323-8 ####[facility] BARTOLOME RDZ [id number] [place] [address] [place] CNOVSPon 11-06-2024 CNOVSP Visit (SP) Office (HEMAWS) ----- KELLIE KANG I ([id number]) 1965 F CHT Date Time Provider Department 11/06/24 9:50 AM [facility] During your visit today, we recorded the following information about you: Temperature Pulse Blood pressure Weight 98.2 degrees 82/minute 131/74 84.4 kg [place] DO 11/06/2024 10:05 AM Signed Oncologic problem(s): 1) Limited stage small cell lung cancer. HPI: The patient is a 59-year-old female former smoker who under presented for evaluation of right neck mass. Right lower neck mass for about a month. Saw Dr. Lara who ordered CT neck. She had a CT of the neck with contrast enhancement on 05/12/2023. This study revealed a nodule in the thyroid, right-sided gland measuring 9 x 6 mm. There is heterogeneity versus second nodule in the left thyroid. Measurements were not rendered. There was right supraclavicular adenopathy, level 4B measuring 4.1 x 2.0 cm. There is mass effect and moderate narrowing of the right jugular vein and an adjacent enlarged lymph node measuring 1.3 x 1.6 cm. There is brachial enlarged lymph nodes measuring 1.3 x 1.3. Note was made of anterior cervical fusion hardware and previous discectomy changes at L5-6. Emphysematous changes were noted in the lung apices. Patient underwent FNA of the right-sided cervical adenopathy on 05/19/2023. Pathology: Positive for malignant cells. 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 Per initial consultation: had Covid. She got symptoms 05/24. Tested positive that day. Sore throat, headache, fever and malaise. Symptoms resolved except fatigue. No change in chronic cough from COPD. Rarely productive. Wheezes ( calls her wheezy). Mild JO. Hasn't had to stop any activity. 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 No issues with stairs, etc. Normal appetite. Neck pain. Pain in right chest (3-4 years; stress test okay). Used to come and go. Now seems to radiate down from the neck mass. COPE in right occipital area. Comes and go for about month. Quit smoking at time of diagnosis. Smoked a ppd for about 45 years. No alcohol. . Three older children. Previous therapy: 1) Concurrent chemotherapy and radiation with cisplatin etoposide. Completed chemotherapy 08/31/2023. Presents for ongoing oncologic management. Interim history: Cervical LN self-resolved. Back pain unchanged. Seeing CPM. Dr. Melchor. No respiratory symptoms. Tires easily. Sensory neuropathy. 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 cholecalciferol, vitamin D3, (VITAMIN D3 ORAL) Take 1 tablet by mouth once daily. docusate sodium (COLACE) 100 mg capsule Take 100 mg by mouth once daily. metoprolol succinate ER (TOPROL XL) 25 mg 24 hr tablet Take 1 tablet by mouth once daily. (Patient taking differently: Take 25 mg by mouth once daily. 1/2 tablet in pm) acetaminophen (TYLENOL) 325 mg tablet Take 650 mg by mouth every 6 hours as needed. vitamin B complex (B COMPLEX ORAL) Take 1 tablet by mouth once daily. No current facility-administered medications for this visit. Social History Tobacco Use Smoking status: Former Current packs/day: 0.00 Average packs/day: 1 pack/day for 45.0 years (45.0 ttl pk-yrs) Types: Cigarettes Start date: 05/27/1978 Quit date: 05/27/2023 Years since quittin.4 Smokeless tobacco: Never Vaping Use Vaping status: Never Used Substance Use Topics Alcohol use: No Drug use: No Family History Problem Relation Age of Onset Cancer Mother leukemia Heart Father [place] other (respiratory failure) Sister Genitourinary () Paternal Grandfather Mother age 51 from leukemia. ROS: Constitutional: Normal appetite. HEENT: No recent change in voice, vision or hearing. Resp: See above. CVS: No exertional chest pain, PND or orthopnea. No extremity swelling/edema. No symptoms of claudication. No painful or tender varicose veins. GI: No dysphagia or odynophagia. No reflux. IBS--has always tended more towards constipation. : No dysuria or gross hematuria. No symptoms of bladder outlet obstruction. Endo: No hot flashes. No polyuria or polydipsia. No heat or cold intolerance. Derm: No current rash. No history (more content not included)... Normal [facility] CBC W Auto Differential pane l (Bld)on 10-30-2024 Basophils (Bld) [#/Vol] 0.05 10*3/uL Normal <0.11 [facility] Comment on above: Order Comment: Speci men Type: BLOOD SPECIMENOrdering Facility: [facility] Address: [address] [place] [address] Performed By: #### 5 7021-8 ####[facility] [id number] [place] [address] [place] Basophils/100 WBC (Bld) 1.0 % Normal [facility] Comment on above: Order Comment: Speci men Type: BLOOD SPECIMENOrdering Facility: [facility] Address: [address] [place] [address] Performed By: #### 5 7021-8 ####[facility] [id number] [place] [address] [place] Differential cell count method Nom (Bld) Auto Normal [facility] Comment on above: Order Comment: Speci men Type: BLOOD SPECIMENOrdering Facility: [facility] Address: [address] [place] [address] Performed By: #### 5 7021-8 ####[facility] [id number] [place] [address] [place] Eosinophils (Bld) [#/Vol] 0.14 10*3/uL Normal <0.46 [facility] Comment on above: Order Comment: Speci men Type: BLOOD SPECIMENOrdering Facility: [facility] Address: [address] [place] [address] Performed By: #### 5 7021-8 ####[facility] [id number] [place] [address] [place] Eosinophils/100 WBC (Bld) 2.9 % Normal [facility] Comment on above: Order Comment: Speci men Type: BLOOD SPECIMENOrdering Facility: [facility] Address: [address] [place] [address] Performed By: #### 5 7021-8 ####[facility] [id number] [place] [address] [place] Erythrocyte distribution width (RBC) [Ratio] 12.5 % Normal 11.5-15.0 [facility] Comment on above: Order Comment: Speci men Type: BLOOD SPECIMENOrdering Facility: [facility] Address: [address] [place] [address] Performed By: #### 5 7021-8 ####[facility] [id number] [place] [address] [place] Hematocrit (Bld) [Volume fraction] 36.5 % Normal 36.0-46.0 [facility] Comment on above: Order Comment: Speci men Type: BLOOD SPECIMENOrdering Facility: [facility] Address: [address] [place] [address] Performed By: #### 5 7021-8 ####[facility] EVANGELINAFaustoNCLAN [id number] [place] [address] [place] Hemoglobin (Bld) [Mass/Vol] 12.2 g/dL Normal 11.5-15.5 [facility] Comment on above: Order Comment: Speci men Type: BLOOD SPECIMENOrdering Facility: [facility] Address: [address] [place] [address] Performed By: #### 5 7021-8 ####[facility] [id number] [place] [address] [place] Immature granulocytes (Bld) [#/Vol] 10*3/uL Normal <0.10 [facility] Comment on above: Order Comment: Speci men Type: BLOOD SPECIMENOrdering Facility: [facility] Address: [address] [place] [address] Performed By: #### 5 7021-8 ####[facility]ENTERNCLIA [id number] [place] [address] [place] Immature granulocytes/100 WBC (Bld) 0.4 % Normal [facility] Comment on above: Order Comment: Speci men Type: BLOOD SPECIMENOrdering Facility: [facility] Address: [address] [place] [address] Performed By: #### 5 7021-8 ####[facility]ENTERNCLIA [id number] [place] [address] [place] Lymphocytes (Bld) [#/Vol] 1.00 10*3/uL Normal 1.00-4.00 [facility] Comment on above: Order Comment: Speci men Type: BLOOD SPECIMENOrdering Facility: [facility] Address: [address] [place], [place] [address] Performed By: #### 5 7021-8 ####[facility]ENTERNCLIA [id number] [place] [address] [place] Lymphocytes/100 WBC (Bld) 20.9 % Normal [facility] Comment on above: Order Comment: Speci men Type: BLOOD SPECIMENOrdering Facility: [facility] Address: [address] [place] [address] Performed By: #### 5 7021-8 ####[facility]ENTERNCLIA [id number] [place] [address] [place] MCH (RBC) [Entitic mass] 30.6 pg Normal 26.0-34.0 [facility] Comment on above: Order Comment: Speci men Type: BLOOD SPECIMENOrdering Facility: [facility] Address: [address] [place] [address] Performed By: #### 5 7021-8 ####[facility] CENTERA [id number] [place] [address] [place] MCHC (RBC) [Mass/Vol] 33.4 g/dL Normal 30.5-36.0 [facility] Comment on above: Order Comment: Speci men Type: BLOOD SPECIMENOrdering Facility: [facility] Address: [address] [place] [address] Performed By: #### 5 7021-8 ####[facility]ENTERNCLIA [id number] [place] [address] [place] MCV (RBC) [Entitic vol] 91.5 fL Normal 80.0-100.0 [facility] Comment on above: Order Comment: Speci men Type: BLOOD SPECIMENOrdering Facility: [facility] Address: [address] [place] [address] Performed By: #### 5 7021-8 ####[facility] [id number] [place] [address] [place] Monocytes (Bld) [#/Vol] 0.42 10*3/uL Normal <0.87 [facility] Comment on above: Order Comment: Speci men Type: BLOOD SPECIMENOrdering Facility: [facility] Address: [address] [place] [address] Performed By: #### 5 7021-8 ####[facility] [id number] [place] [address] [place] Monocytes/100 WBC (Bld) 8.8 % Normal [facility] Comment on above: Order Comment: Speci men Type: BLOOD SPECIMENOrdering Facility: [facility] Address: [address] [place] [address] Performed By: #### 5 7021-8 ####[facility]ENTERNCLIA [id number] [place] [address] [place] Neutrophils (Bld) [#/Vol] 3.15 10*3/uL Normal 1.45-7.50 [facility] Comment on above: Order Comment: Speci men Type: BLOOD SPECIMENOrdering Facility: [facility] Address: [address] [place] [address] Performed By: #### 5 7021-8 ####[facility] [id number] [place] [address] [place] Neutrophils/100 WBC (Bld) 66.0 % Normal [facility] Comment on above: Order Comment: Speci men Type: BLOOD SPECIMENOrdering Facility: [facility] Address: [address] [place] [address] Performed By: #### 5 7021-8 ####[facility]ERNCLIA [id number] [place] [address] [place] Nucleated RBC (Bld) [#/Vol] 10*3/uL Normal <0.01 [facility] Comment on above: Order Comment: Speci men Type: BLOOD SPECIMENOrdering Facility: [facility] Address: [address] [place] [address] Performed By: #### 5 7021-8 ####[facility] EVANGELINAFaustoNCLAN [id number] [place] [address] [place] Nucleated RBC/100 WBC (Bld) [Ratio] 0.0 /100 WBC Normal [facility] Comment on above: Order Comment: Speci men Type: BLOOD SPECIMENOrdering Facility: [facility] Address: [address] [place] [address] Performed By: #### 5 7021-8 ####[facility] EVANGELINAMONTICELLONCLIA [id number] [place] [address] [place] Platelet mean volume (Bld) [Entitic vol] 9.0 fL Normal 9.0-12.7 [facility] Comment on above: Order Comment: Speci men Type: BLOOD SPECIMENOrdering Facility: [facility] Address: [address] [place] [address] Performed By: #### 5 7021-8 ####[facility]ERNCLIA [id number] [place] [address] [place] Platelets (Bld) [#/Vol] 242 10*3/uL Normal 150-400 [facility] Comment on above: Order Comment: Speci men Type: BLOOD SPECIMENOrdering Facility: [facility] Address: [address] [place] [address] Performed By: #### 5 7021-8 ####[facility]ERNCLIA [id number] [place] [address] [place] RBC (Bld) [#/Vol] 3.99 10*6/uL Normal 3.90-5.20 [facility] Comment on above: Order Comment: Speci men Type: BLOOD SPECIMENOrdering Facility: [facility] Address: [address] [place] [address] Performed By: #### 5 7021-8 ####[facility] JESSICANCLIA [id number] [place] [address] [place] WBC (Bld) [#/Vol] 4.78 10*3/uL Normal 3.70-11.00 [facility] Comment on above: Order Comment: Speci men Type: BLOOD SPECIMENOrdering Facility: [facility] Address: [address] [place] [address] Performed By: #### 5 7021-8 ####[facility] NIMISHANCLIA [id number] [place] [address] [place] CT ABD/PEL W IVCONon 10-30-[address] ABD/PEL W IVCON * * *Final Report* * * DATE OF EXAM: Oct 30 2024 10:57AM [facility] 0530 - CT ABD/PEL W IVCON / PROCEDURE REASON: multiple diagnoses * * * * Physician Interpretation * * * * EXAMINATION: CT ABDOMEN AND PELVIS WITH IV CONTRAST CLINICAL HISTORY: Lung cancer presenting for follow-up TECHNIQUE: CT of the abdomen and pelvis was performed using standard technique, scanning from just above the dome of the diaphragm to the symphysis pubis. MQ: CTAP_3 Contrast: IV: 100 ml of Omnipaque 350 Oral: 10 ml of Omni 240 10-25ml diluted with water CT Radiation dose: Integrated Dose-length product (DLP) for this visit = 832 mGy*cm. CT Dose Reduction Employed: Automated exposure control(AEC) and iterative recon COMPARISON: CT abdomen pelvis dated 07/26/2024 RESULT: Liver: Couple of stable subcentimeter hypodense too small to characterize hepatic lesions. No new or enlarging hepatic lesion. Biliary: No bile duct dilation. Gallbladder present without evidence of radiopaque stones or wall thickening. Spleen: No mass. No splenomegaly. Pancreas: No solid mass or duct dilation. Adrenals: No mass. Kidneys: Stable 1.5 cm left renal lower pole cyst with thin internal septations. Stable scattered left renal cortical scarring. GI tract: Miniscule hiatal hernia. No dilation or wall thickening. Couple of scattered uncomplicated colonic diverticuli. Lymph nodes: Stable 8 mm retroesophageal lymph node (12, 13). Stable 1.1 cm portacaval lymph node, previously measuring the same when remeasured in a similar fashion. No new or enlarging suspect abdominal pelvic lymphadenopathy. Mesentery/Peritoneum: No ascites. Vasculature: Arterial atherosclerotic calcification of the vasculature. Pelvis: No mass, ascites or fluid collection. Bones/Soft Tissues: Degenerative changes. Lower thorax: A chest CT performed will be reported separately. Localizer images: No additional findings. IMPRESSION: 1. No new or enlarging mass or lymphadenopathy in the abdomen or pelvis. 2. Stable findings as described. Countersinker Balance Screw Hole: PSCB Transcribe Date/Time: Nov 05 2024 1:36P Dictated by : CARL CUMMINGS MD This examination was interpreted and the report reviewed and electronically signed by: CARL CUMMINGS MD on Nov 05 2024 1:43PM EST [id number] Normal [facility] CT CHEST W IVCONon CT CHEST W IVCON * * *Final Report* * * DATE OF EXAM: Oct 30 2024 10:57AM [facility] 0539 - CT CHEST W IVCON / PROCEDURE REASON: multiple diagnoses * * * * Physician Interpretation * * * * EXAMINATION: CHEST CT WITH CONTRAST CLINICAL HISTORY: Lung cancer follow-up Technique: Spiral CT acquisition of the chest from the thoracic inlet to the upper abdomen following IV contrast. MQ: [id number]_6 Contrast: 100 mL Omnipaque [address] Radiation dose: Integrated Dose-length product (DLP) for this visit = 832 mGy*cm CT Dose Reduction Employed: Automated exposure control(AEC) and iterative recon Comparison: CT chest dated 07/26/2024 RESULT: Limitations: None. Lines, tubes, and devices: None. Lung parenchyma and airways: Mild upper lung zone predominant centrilobular emphysema. Stable right paramediastinal/perihilar reticulations most compatible with the sequela of radiation treatment related changes. No new or enlarging suspicious pulmonary nodule. Pleural space: No pleural effusion. No pleural thickening. Lower neck, lymph nodes, and mediastinum: The imaged thyroid gland is normal. Stable mild right paratracheal and precarinal ill-defined soft tissue. No new or enlarging suspect lymphadenopathy in the supraclavicular, axillary, mediastinal, or hilar regions. Heart, pericardium, and thoracic vessels: Scattered atherosclerotic calcifications of the visualized great vessels and thoracic aorta. The thoracic aorta and main pulmonary artery are normal in caliber. The cardiac chambers are normal in size. No coronary artery atherosclerotic calcifications are noted, although the study is not optimized for coronary assessment. No pericardial effusion or thickening. Bones and soft tissues: Degenerative changes. Upper abdomen: See separate dictation of concurrently performed CT abdomen which will be reported under a separate cover. Localizer images: No additional findings. IMPRESSION: 1. Stable posttreatment related changes. 2. No new or enlarging suspicious pulmonary nodule. 3. No new or enlarging intrathoracic lymphadenopathy. Countersinker Balance Screw Hole: [employer] Transcribe Date/Time: Nov 05 2024 1:26P Dictated by : CARL CUMMINGS MD This examination was interpreted and the report reviewed and electronically signed by: CARL CUMMINGS MD on Nov 05 2024 1:36PM EST [id number] Normal [facility] CT NECK SOFT TISSUE W IVCONo n 10-30-2024 CT NECK SOFT TISSUE W IVCON * * *Final Report* * * DATE OF EXAM: Oct 30 2024 10:57AM [facility] 0013 - CT NECK SOFT TISSUE W IVCON / PROCEDURE REASON: multiple diagnoses * * * * Physician Interpretation * * * * CT NECK SOFT TISSUE W IVCON History: Encounter for follow-up surveillance of lung cancer Encounter for follow-up surveillance of lung cancer Small cell lung cancer, unspecified laterality (HCC) Dyspnea and respiratory abnormalities Comparison: CT neck soft tissue from 07/26/2024 and 04/25/2024. Technique: A series of contiguous helical scans were performed from the skull base to the aortic arch with intravenous contrast. Contrast: Omnipaque 350. Contrast Dose: 50 cc Route of Administration: IV CT Radiation dose: Integrated Dose-length product (DLP) for this visit = 603 mGy*cm. CT Dose Reduction Employed: Automated exposure control(AEC) and iterative recon RESULT: Postoperative change: None apparent. Suprahyoid Neck: Nasopharynx and oropharynx appear normal. Parapharyngeal tissue planes are preserved. Oral cavity and floor of mouth appear normal within constraints of artifact from dental amalgam. Parotid and submandibular spaces are normal. [employer] Lead spaces appear normal. Infrahyoid Neck: Hypopharynx, larynx, and imaged infraglottic trachea appear normal. Imaged upper esophagus is unremarkable. Thyroid gland is homogeneous without evidence of discrete nodule. Lymph Nodes: No cervical lymphadenopathy by size criteria. Carotid Space: No masses. Patent extracranial carotid systems and internal jugular veins bilaterally. Orbits, Face and Skull Base: Orbital soft tissue planes are preserved. Paranasal sinuses are clear. Mastoid air cells and middle ear cavities are clear. No evidence of an osteolytic or osteoblastic process in the skull base. Imaged intracranial contents: No abnormal intracranial enhancement, mass effect, or hydrocephalus. Cervical spine and remaining osseous structures: Postop changes of ACDF at C5-C6. The fusion remains radiographically intact. No discrete osteolytic or osteoblastic process. No significant spondylotic changes in the visualized spine. Lung apices: For detailed intrathoracic findings, please see concurrent CT chest which is reported under a separate accession. Other: Not applicable. IMPRESSION: Normal CT neck soft tissues with contrast. No evidence of neck mass or pathologic cervical lymphadenopathy. Countersinker Balance Screw Hole[facility] Transcribe Date/Time: Oct 30 2024 11:53A Dictated by : JASMINE TALAMANTES MD This examination was interpreted and the report reviewed and electronically signed by: JASMINE TALAMANTES MD on Oct 30 2024 11:56AM EST [id number] Normal [facility] CT Neck W contrast Marija 04-3 IMPRESSION: Normal CT neck soft tissues with contrast. No evidence of neck mass or pathologic cervical lymphadenopathy. Countersinker Balance Screw Hole: [facility] Transcribe Date/Time: Oct 30 2024 11:53A Dictated by : JASMINE TALAMANTES MD This examination was interpreted and the report reviewed and electronically signed by: JASMINE TALAMANTES MD on Oct 30 2024 11:56AM EST DIVISION OF RADIOLOGY * * *Final Report* * * DATE OF EXAM: Oct 30 2024 10:57AM [facility] 0013 - CT NECK SOFT TISSUE W IVCON / PROCEDURE REASON: multiple diagnoses * * * * Physician Interpretation * * * * CT NECK SOFT TISSUE W IVCON History: Encounter for follow-up surveillance of lung cancer Encounter for follow-up surveillance of lung cancer Small cell lung cancer, unspecified laterality (HCC) Dyspnea and respiratory abnormalities Comparison: CT neck soft tissue from 07/26/2024 and 04/25/2024. Technique: A series of contiguous helical scans were performed from the skull base to the aortic arch with intravenous contrast. Contrast: Omnipaque 350. Contrast Dose: 50 cc Route of Administration: IV CT Radiation dose: Integrated Dose-length product (DLP) for this visit = 603 mGy*cm. CT Dose Reduction Employed: Automated exposure control(AEC) and iterative recon RESULT: Postoperative change: None apparent. Suprahyoid Neck: Nasopharynx and oropharynx appear normal. Parapharyngeal tissue planes are preserved. Oral cavity and floor of mouth appear normal within constraints of artifact from dental amalgam. Parotid and submandibular spaces are normal. [employer] Lead spaces appear normal. Infrahyoid Neck: Hypopharynx, larynx, and imaged infraglottic trachea appear normal. Imaged upper esophagus is unremarkable. Thyroid gland is homogeneous without evidence of discrete nodule. Lymph Nodes: No cervical lymphadenopathy by size criteria. Carotid Space: No masses. Patent extracranial carotid systems and internal jugular veins bilaterally. Orbits, Face and Skull Base: Orbital soft tissue planes are preserved. Paranasal sinuses are clear. Mastoid air cells and middle ear cavities are clear. No evidence of an osteolytic or osteoblastic process in the skull base. Imaged intracranial contents: No abnormal intracranial enhancement, mass effect, or hydrocephalus. Cervical spine and remaining osseous structures: Postop changes of ACDF at C5-C6. The fusion remains radiographically intact. No discrete osteolytic or osteoblastic process. No significant spondylotic changes in the visualized spine. Lung apices: For detailed intrathoracic findings, please see concurrent CT chest which is reported under a separate accession. Other: Not applicable. DIVISION OF RADIOLOGY Provider, [facility] - 10/30/2024 * * *Final Report* * * DATE OF EXAM: Oct 30 2024 10:57AM [facility] 0013 - CT NECK SOFT TISSUE W IVCON / PROCEDURE REASON: multiple diagnoses * * * * Physician Interpretation * * * * CT NECK SOFT TISSUE W IVCON History: Encounter for follow-up surveillance of lung cancer Encounter for follow-up surveillance of lung cancer Small cell lung cancer, unspecified laterality (HCC) Dyspnea and respiratory abnormalities Comparison: CT neck soft tissue from 07/26/2024 and 04/25/2024. Technique: A series of contiguous helical scans were performed from the skull base to the aortic arch with intravenous contrast. Contrast: Omnipaque 350. Contrast Dose: 50 cc Route of Administration: IV CT Radiation dose: Integrated Dose-length product (DLP) for this visit = 603 mGy*cm. CT Dose Reduction Employed: Automated exposure control(AEC) and iterative recon RESULT: Postoperative change: None apparent. Suprahyoid Neck: Nasopharynx and oropharynx appear normal. Parapharyngeal tissue planes are preserved. Oral cavity and floor of mouth appear normal within constraints of artifact from dental amalgam. Parotid and submandibular spaces are normal. [employer] Lead spaces appear normal. Infrahyoid Neck: Hypopharynx, larynx, and imaged infraglottic trachea appear normal. Imaged upper esophagus is unremarkable. Thyroid gland is homogeneous without evidence of discrete nodule. Lymph Nodes: No cervical lymphadenopathy by size criteria. Carotid Space: No masses. Patent extracranial carotid systems and internal jugular veins bilaterally. Orbits, Face and Skull Base: Orbital soft tissue planes are preserved. Paranasal sinuses are clear. Mastoid air cells and middle ear cavities are clear. No evidence of an osteolytic or osteoblastic process in the skull base. Imaged intracranial contents: No abnormal intracranial enhancement, mass effect, or hydrocephalus. Cervical spine and remaining osseous structures: Postop changes of ACDF at C5-C6. The fusion remains radiographically intact. No discrete osteolytic or osteoblastic process. No significant spondylotic changes in the visualized spine. Lung apices: For detailed intrathoracic findings, please see concurrent CT chest which is reported under a separate accession. Other: Not applicable. IMPRESSION IMPRESSION: Normal CT neck soft tissues with contrast. No evidence of neck mass or pathologic cervical lymphadenopathy. Countersinker Balance Screw Hole: [facility] Transcribe Date/Time: Oct 30 2024 11:53A Dictated by : JASMINE TALAMANTES MD This examination was interpreted and the report reviewed and electronically signed by: JASMINE TALAMANTES MD on Oct 30 2024 11:56AM EST [facility] Radiology Study observation (narrative) [facility] CT Neck W contrast IVOrdered By: Ccf Provider on 10-30-2024 [facility] Comprehensive metabolic 2000 panelon 10-30-2024 Albumin [Mass/Vol] 4.5 g/dL Normal 3.9-4.9 [facility] Comment on above: Order Comment: Speci men Type: BLOOD SPECIMENOrdering Facility: [facility] Address: [address] [place] [address] Performed By: #### 2 4323-8 ####[facility] EVANGELINAWNCLIA [id number] [place] [address] [place] ALP [Catalytic activity/Vol] 62 U/L Normal 34-123 [facility] Comment on above: Order Comment: Speci men Type: BLOOD SPECIMENOrdering Facility: [facility] Address: [address] [place] [address] Performed By: #### 2 4323-8 ####[facility]ITALWNCLIA [id number] [place] [address] [place] ALT [Catalytic activity/Vol] 15 U/L Normal 7-38 [facility] Comment on above: Order Comment: Speci men Type: BLOOD SPECIMENOrdering Facility: [facility] Address: [address] [place] [address] Performed By: #### 2 4323-8 ####[facility] [id number] [place] [address] [place] Anion gap [Moles/Vol] 12 mmol/L Normal 8-15 [facility] Comment on above: Order Comment: Speci men Type: BLOOD SPECIMENOrdering Facility: [facility] Address: [address] [place] [address] Performed By: #### 2 4323-8 ####[facility] MILLTOWNCLIA [id number] [place] [address] [place] AST [Catalytic activity/Vol] 18 U/L Normal 13-35 [facility] Comment on above: Order Comment: Speci men Type: BLOOD SPECIMENOrdering Facility: [facility] Address: [address] [place] [address] Performed By: #### 2 4323-8 ####[facility]ITALTOWNCLIA [id number] [place] [address] [place] Bilirubin [Mass/Vol] 0.3 mg/dL Normal 0.2-1.3 [facility] Comment on above: Order Comment: Speci men Type: BLOOD SPECIMENOrdering Facility: [facility] Address: [address] [place] [address] Performed By: #### 2 4323-8 ####[facility] MILLTOWNCLIA [id number] [place] [address] [place] Calcium [Mass/Vol] 9.9 mg/dL Normal 8.5-10.2 [facility] Comment on above: Order Comment: Speci men Type: BLOOD SPECIMENOrdering Facility: [facility] Address: [address] [place] [address] Performed By: #### 2 4323-8 ####[facility] [id number] [place] [address] [place] Chloride [Moles/Vol] 106 mmol/L Normal 98-107 [facility] Comment on above: Order Comment: Speci men Type: BLOOD SPECIMENOrdering Facility: [facility] Address: [address] [place] [address] Performed By: #### 2 4323-8 ####[facility]ITALWNCLIA [id number] [place] [address] [place] CO2 [Moles/Vol] 23 mmol/L Normal 22-30 [facility] Comment on above: Order Comment: Speci men Type: BLOOD SPECIMENOrdering Facility: [facility] Address: [address] [place] [address] Performed By: #### 2 4323-8 ####[facility]ENTERNCLIA [id number] [place] [address] [place] Creatinine [Mass/Vol] 1.23 mg/dL High 0.58-0.96 [facility] Comment on above: Order Comment: Jamarcus fajardo Type: BLOOD SPECIMENOrdering Facility: [facility] Address: [address] [place] [address] Performed By: #### 2 4323-8 ####[facility] [id number] [place] [address] [place] Creatinine and Glomerular filtration rate.predicted panel (S/P/Bld) 51 mL/min/1.73m??? Low >=60 [facility] Comment on above: Order Comment: Jamarcus fajardo Type: BLOOD SPECIMENOrdering Facility: [facility] Address: [address] [place] [address] Result Comment: Vani mated Glomerular Filtration Rate (eGFR) is calculated using the 2020 CKD-EPI creatinine equation. This equation utilizes serum creatinine, sex, and age as parameters. The creatinine assay has traceable calibration to isotope dilution-mass spectrometry. Refer to KDIGO guidelines for clinical interpretation. In patients with unstable renal function, e.g. those with acute kidney injury, the eGFR may not accurately reflect actual GFR. Performed By: #### 2 4323-8 ####[facility] [id number] [place] [address] [place] Glucose [Mass/Vol] 103 mg/dL High 74-99 [facility] Comment on above: Order Comment: Jamarcus fajardo Type: BLOOD SPECIMENOrdering Facility: [facility] Address: [address] [place] [address] Result Comment: The [place] [employer] (ADA) provides guidance for cutoff values for fasting glucose and random glucose. The ADA defines fasting as no caloric intake for at least 8 hours. Fasting plasma glucose results between 100 to 125 mg/dL indicate increased risk for diabetes (prediabetes). Fasting plasma glucose results greater than or equal to 126 mg/dL meet the criteria for diagnosis of diabetes. In the absence of unequivocal hyperglycemia, results should be confirmed by repeat testing. In a patient with classic symptoms of hyperglycemia or hyperglycemic crisis, random plasma glucose results greater than or equal to 200 mg/dL meet the criteria for diagnosis of diabetes. Reference: Standards of Medical Care in Diabetes 2016, [place] [employer]. Diabetes Care. 2016.39(Suppl 1). Performed By: #### 2 4323-8 ####[facility] EVANGELINAFaustoDARYA [id number] [place] [address] [place] Potassium [Moles/Vol] 4.2 mmol/L Normal 3.7-5.1 [facility] Comment on above: Order Comment: Speci men Type: BLOOD SPECIMENOrdering Facility: [facility] Address: [address] [place] [address] Performed By: #### 2 4323-8 ####[facility] CENTERANA MStefanie [id number] [place] [address] [place] Protein [Mass/Vol] 7.2 g/dL Normal 6.3-8.0 [facility] Comment on above: Order Comment: Speci men Type: BLOOD SPECIMENOrdering Facility: [facility] Address: [address] [place] [address] Performed By: #### 2 4323-8 ####[facility]ENTERA [id number] [place] [address] [place] Sodium [Moles/Vol] 141 mmol/L Normal 136-144 [facility] Comment on above: Order Comment: Speci men Type: BLOOD SPECIMENOrdering Facility: [facility] Address: [address] [place] [address] Performed By: #### 2 4323-8 ####[facility]ALLAN [id number] [place] [address] [place] Urea nitrogen [Mass/Vol] 15 mg/dL Normal 7-21 [facility] Comment on above: Order Comment: Speci men Type: BLOOD SPECIMENOrdering Facility: [facility] Address: [address] [place] [address] Performed By: #### 2 4323-8 ####[facility] MILLTOWNCLIA [id number] [address] [place] Amaris 09-04-2024 [facility] ----- SEEMAKELLIE Chew I ([id number]) 1965 F T Date Time Provider Department 09/04/24 [facility] During your visit today, we recorded the following information about you: Raven East DO 09/04/2024 5:28 PM Signed Please let her know the MRI showed a lot of degenerative changes and one area where there is a pinched nerve. I got in touch with the spine center at [place]. She is an appropriate patient for them to see to consider epidural injections. Referral order filed. Also I sent in Rx for Medrol Dosepak to see if that helps give her more relief until she is able to get an appointment. DO Jey Lara Melanie, LPN 09/05/2024 8:43 AM Signed Patient is aware of all information and verbalized understanding. PSS- please contact patient to schedule with the spine center at [facility]. ANGELLA Wood Naomi 09/05/2024 10:04 AM Signed Spoke w pt and she is scheduled in [place] for 10/09. Payal Hilliard Allergies As of Date: 09/04/2024 (No Known Allergies) Date Reviewed: 08/27/2024 Reviewed by: Jacek Aguila MA - Fully Assessed Reason for Visit: Appointment [186] Primary Visit Diagnosis:Acute right-sided low back pain without sciatica [M54.50] Order(s):[facility] [19991002] Order #: [id number]: 1 FUTURE [] methylPREDNISolone (MEDROL DOSE-PACK) 4 mg Dose-PackTake as instructed per package.Disp: 21 tabletRfl: 0 Prescriptions as of 01/01/2025 - acetaminophen with codeine (TYLENOL-CODEINE #3 ORAL) Take by mouth as needed. - cholecalciferol, vitamin D3, (VITAMIN D3 ORAL) Take 1 tablet by mouth once daily. - iv contrast (will be provided with radiology test) CT Chest W -Inject, intravenously, once for 1 dose.No IV access, insert saline lock prior to the beginning of sedation, infusion, injection of imaging exam. Discontinue saline lock post exam. If Pt. has a central line or IVAD, may access for administration according to line specific nursing protocol. Once exam is complete flush line and de-access according to line specific nursing protocol in the CT contrast administration guidelines link. - iv contrast (will be provided with radiology test) CT ABD/PEL -Inject, intravenously, once for 1 dose.No IV access, insert saline lock prior to the beginning of sedation, infusion, injection of imaging exam. Discontinue saline lock post exam. If Pt. has a central line or IVAD, may access for administration according to line specific nursing protocol. Once exam is complete flush line and de-access according to line specific nursing protocol in the CT contrast administration guidelines link. - enteric contrast (will be provided with radiology test) For CT ABD/PEL W IVCON Routine order Administer, As Directed One Time Only, via Oral, Rectal, both Oral and Rectal, Enteric Tube, Stoma or Indwelling Catheter, Enteric Contrast as designated per enteric contrast guidelines - docusate sodium (COLACE) 100 mg capsule Take 100 mg by mouth once daily. - metoprolol succinate ER (TOPROL XL) 25 mg 24 hr tablet Take 1 tablet by mouth once daily. - acetaminophen (TYLENOL) 325 mg tablet Take 650 mg by mouth every 6 hours as needed. - vitamin B complex (B COMPLEX ORAL) Take 1 tablet by mouth once daily. 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 Medications Discontinued During This Encounter Prescriptions - Magnesium Gluconate 30 mg (550 mg) tab (Discontinued) Reported on 08/27/2024 - iv contrast (will be provided with radiology test) (Discontinued) Reported on 02/21/2024 - iv contrast (will be provided with radiology test) (Discontinued) CT ABD/PEL -Inject, intravenously, once for 1 dose.No IV access, insert saline lock prior to the beginning of sedation, infusion, injection of imaging exam. Discontinue saline lock post exam. If Pt. has a central line or IVAD, may access for administration according to line specific nursing protocol. Once exam is complete flush line and de-access according to line specific nursing protocol in the CT contrast administration guidelines link. - iv contrast (will be provided with radiology test) (Discontinued) CT Chest W -Inject, intravenously, once for 1 dose.No IV access, insert saline lock prior to the beginning of sedation, infusion, injection of imaging exam. Discontinue saline lock post exam. If Pt. has a central line or IVAD, ma (more content not included)... Normal [facility] MR Lumbar spine WO and W con trast Marija 09-04-2024 IMPRESSION: Multilevel degenerative canal stenoses, most pronounced at L1-2 where there is moderate to severe narrowing of the right lateral recess with encroachment upon the descending right L2 nerve root. Scattered neural foraminal stenoses, most pronounced at L5-S1 on the left. Suspect partially conjoined left S1 and S2 nerve roots. No evidence of metastatic disease within the lumbar spine. Anatomic Lumbar Variant: None. L4-5 is considered the level of the iliac crest and assume there are 5 lumbar-type vertebrae. 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 Contrast: Elucirem. Contrast Dose: 8.5 cc Route of Administration: IV COMPARISON: CT abdomen/pelvis 07/26/2024 RESULT: Counting reference: Lumbosacral junction. For the purposes of this report, L4-5 is considered the level of the iliac crest and assume there are 5 lumbar-type vertebrae. Anatomic variant: None. Localizer images: Renal cysts. Alignment: Alignment is anatomic. Bone marrow signal/fracture: No evidence of pathologic marrow infiltration. No evidence of prior fracture. Multilevel disc height loss and desiccation, most pronounced at L1-2. Mild endplate edema at L1-2.. Conus: The conus terminates at L1-2 and is normal in appearance. No suspicious enhancement along the cauda equina nerve roots or conus. No abnormal epidural enhancement. Paraspinal soft tissues: No significant prevertebral edema. Lower thoracic spine: Visualized lower thoracic canal and foramina are patent. L1-L2: Mild to moderate canal stenosis with contributions from a disc bulge asymmetric to the right with superimposed right subarticular disc protrusion/extrusion. There is moderate to severe narrowing of the right lateral recess with abutment/encroachment upon the descending right L2 nerve root. Mild right neural foraminal stenosis due to the asymmetric disc bulge and facet arthropathy. The left neural foramen is patent L2-L3: No significant canal stenosis despite a diffuse disc bulge and dorsal ligamentum flavum thickening. No significant neural foraminal stenosis despite bilateral facet arthropathy. L3-L4: Mild canal stenosis with contributions from a small diffuse disc bulge and dorsal ligamentum flavum thickening. Mild bilateral neural foraminal stenosis due to the diffuse disc bulge, a left subarticular disc protrusion, and hypertrophic facet arthropathy. L4-L5: Mild canal stenosis with contributions from a diffuse disc bulge and dorsal ligamentum flavum thickening. Mild bilateral neural foraminal stenosis due to the diffuse disc bulge and hypertrophic facet arthropathy. L5-S1: Mild canal stenosis with contributions from a diffuse disc bulge with superimposed right paracentral disc protrusion. There is mild narrowing of the right lateral recess with equivocal abutment of the descending right S1 nerve root. Moderate right and moderate to severe left neural foraminal stenosis due to the diffuse disc bulge with overlying osteophytes, a left foraminal disc protrusion, and hypertrophic facet arthropathy. The exiting left S1 and S2 nerve roots are likely conjoined.. Sacrum and iliac wings: Suspect partially conjoined left S1 and S2 nerve roots which exit through the left L5-S1 neural foramen. 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 Contrast: Elucirem. Contrast Dose: 8.5 cc Route of Administration: IV COMPARISON: CT abdomen/pelvis 07/26/2024 RESULT: Counting reference: Lumbosacral junction. For the purposes of this report, L4-5 is considered the level of the iliac crest and assume there are 5 lumbar-type vertebrae. Anatomic variant: None. Localizer images: Renal cysts. Alignment: Alignment is anatomic. Bone marrow signal/fracture: No evidence of pathologic marrow infiltration. No evidence of prior fracture. Multilevel disc height loss and desiccation, most pronounced at L1-2. Mild endplate edema at L1-2.. Conus: The conus terminates at L1-2 and is normal in appearance. No suspicious enhancement along the cauda equina nerve roots or conus. No abnormal epidural enhancement. Paraspinal soft tissues: No significant prevertebral edema. Lower thoracic spine: Visualized lower thoracic canal and foramina are patent. L1-L2: Mild to moderate canal stenosis with contributions from a disc bulge asymmetric to the right with superimposed right subarticular disc protrusion/extrusion. There is moderate to severe narrowing of the right lateral recess with abutment/encroachment upon the descending right L2 nerve root. Mild right neural foraminal stenosis due to the asymmetric disc bulge and facet arthropathy. The left neural foramen is patent L2-L3: No significant canal stenosis despite a diffuse disc bulge and dorsal ligamentum flavum thickening. No significant neural foraminal stenosis despite bilateral facet arthropathy. L3-L4: Mild canal stenosis with contributions from a small diffuse disc bulge and dorsal ligamentum flavum thickening. Mild bilateral neural foraminal stenosis due to the diffuse disc bulge, a left subarticular disc protrusion, and hypertrophic facet arthropathy. L4-L5: Mild canal stenosis with contributions from a diffuse disc bulge and dorsal ligamentum flavum thickening. Mild bilateral neural foraminal stenosis due to the diffuse disc bulge and hypertrophic facet arthropathy. L5-S1: Mild canal stenosis with contributions from a diffuse disc bulge with superimposed right paracentral disc protrusion. There is mild narrowing of the right lateral recess with equivocal abutment of the descending right S1 nerve root. Moderate right and moderate to severe left neural foraminal stenosis due to the diffuse disc bulge with overlying osteophytes, a left foraminal disc protrusion, and hypertrophic facet arthropathy. The exiting left S1 and S2 nerve roots are likely conjoined.. Sacrum and iliac wings: Suspect partially conjoined left S1 and S2 nerve roots which exit through the left L5-S1 neural foramen. IMPRESSION IMPRESSION: Multilevel degenerative canal stenoses, most pronounced at L1-2 where there is moderate to severe narrowing of the right lateral recess with encroachment upon the descending right L2 nerve root. Scattered neural foraminal stenoses, most pronounced at L5-S1 on the left. Suspect partially conjoined left S1 and S2 nerve roots. No evidence of metastatic disease within the lumbar spine. Anatomic Lumbar Variant: None. L4-5 is considered the level of the iliac crest and assume there are 5 lumbar-type vertebrae. Countersinker Balance Screw Hole: PSCB Transcribe Date/Time: Sep 04 2024 9:04A Dictated by : GURINDER HUFF MD This examination was interpreted and the report reviewed and electronically signed by: GURINDER HUFF MD on Sep 04 2024 2:46PM EST [facility] Radiology Study observation (narrative) [facility] MR Lumbar spine WO and W con trast IVOrdered By: [facility] Provider on 09-04-2024 [facility] MRI LUMBAR SPINE WO/W IVCONo n 03-05-2025 MRI LUMBAR SPINE WO/W IVCON * * *Final Report* * * DATE OF EXAM: Sep 04 2024 9:00AM [id number] - MRI LUMBAR SPINE WO/W IVCON / PROCEDURE REASON: multiple diagnoses * * * * Physician Interpretation * * * * EXAMINATION: MRI LUMBAR SPINE WO/W IVCON CLINICAL HISTORY: Small cell lung cancer (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 Contrast: Elucirem. Contrast Dose: 8.5 cc Route of Administration: IV COMPARISON: CT abdomen/pelvis 07/26/2024 RESULT: Counting reference: Lumbosacral junction. For the purposes of this report, L4-5 is considered the level of the iliac crest and assume there are 5 lumbar-type vertebrae. Anatomic variant: None. Localizer images: Renal cysts. Alignment: Alignment is anatomic. Bone marrow signal/fracture: No evidence of pathologic marrow infiltration. No evidence of prior fracture. Multilevel disc height loss and desiccation, most pronounced at L1-2. Mild endplate edema at L1-2.. Conus: The conus terminates at L1-2 and is normal in appearance. No suspicious enhancement along the cauda equina nerve roots or conus. No abnormal epidural enhancement. Paraspinal soft tissues: No significant prevertebral edema. Lower thoracic spine: Visualized lower thoracic canal and foramina are patent. L1-L2: Mild to moderate canal stenosis with contributions from a disc bulge asymmetric to the right with superimposed right subarticular disc protrusion/extrusion. There is moderate to severe narrowing of the right lateral recess with abutment/encroachment upon the descending right L2 nerve root. Mild right neural foraminal stenosis due to the asymmetric disc bulge and facet arthropathy. The left neural foramen is patent L2-L3: No significant canal stenosis despite a diffuse disc bulge and dorsal ligamentum flavum thickening. No significant neural foraminal stenosis despite bilateral facet arthropathy. L3-L4: Mild canal stenosis with contributions from a small diffuse disc bulge and dorsal ligamentum flavum thickening. Mild bilateral neural foraminal stenosis due to the diffuse disc bulge, a left subarticular disc protrusion, and hypertrophic facet arthropathy. L4-L5: Mild canal stenosis with contributions from a diffuse disc bulge and dorsal ligamentum flavum thickening. Mild bilateral neural foraminal stenosis due to the diffuse disc bulge and hypertrophic facet arthropathy. L5-S1: Mild canal stenosis with contributions from a diffuse disc bulge with superimposed right paracentral disc protrusion. There is mild narrowing of the right lateral recess with equivocal abutment of the descending right S1 nerve root. Moderate right and moderate to severe left neural foraminal stenosis due to the diffuse disc bulge with overlying osteophytes, a left foraminal disc protrusion, and hypertrophic facet arthropathy. The exiting left S1 and S2 nerve roots are likely conjoined.. Sacrum and iliac wings: Suspect partially conjoined left S1 and S2 nerve roots which exit through the left L5-S1 neural foramen. IMPRESSION: Multilevel degenerative canal stenoses, most pronounced at L1-2 where there is moderate to severe narrowing of the right lateral recess with encroachment upon the descending right L2 nerve root. Scattered neural foraminal stenoses, most pronounced at L5-S1 on the left. Suspect partially conjoined left S1 and S2 nerve roots. No evidence of metastatic disease within the lumbar spine. Anatomic Lumbar Variant: None. L4-5 is considered the level of the iliac crest and assume there are 5 lumbar-type vertebrae. Countersinker Balance Screw Hole: PSCB Transcribe Date/Time: Sep 04 2024 9:04A Dictated by : GURINDER UHFF MD This examination was interpreted and the report reviewed and electronically signed by: GURINDER HUFF MD on Sep 04 2024 2:46PM EST [id number] [facility] CNOVSPon 08-27-2024 CNOVSP Visit (SP) Office (HEMMOSES) ----- KELLIE KANG I ([id number]) 1965 F T Date Time Provider Department 08/27/24 9:30 AM [facility] During your visit today, we recorded the following information about you: Temperature Pulse Blood pressure Weight 99.1 degrees 68/minute 126/85 84.4 kg Raven [place] DO 08/27/2024 12:04 PM Signed Oncologic problem(s): 1) Limited stage small cell lung cancer. HPI: The patient is a 59-year-old female former smoker who under presented for evaluation of right neck mass. Right lower neck mass for about a month. Saw Dr. Lara who ordered CT neck. She had a CT of the neck with contrast enhancement on 05/12/2023. This study revealed a nodule in the thyroid, right-sided gland measuring 9 x 6 mm. There is heterogeneity versus second nodule in the left thyroid. Measurements were not rendered. There was right supraclavicular adenopathy, level 4B measuring 4.1 x 2.0 cm. There is mass effect and moderate narrowing of the right jugular vein and an adjacent enlarged lymph node measuring 1.3 x 1.6 cm. There is brachial enlarged lymph nodes measuring 1.3 x 1.3. Note was made of anterior cervical fusion hardware and previous discectomy changes at L5-6. Emphysematous changes were noted in the lung apices. Patient underwent FNA of the right-sided cervical adenopathy on 05/19/2023. Pathology: Positive for malignant cells. 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 Per initial consultation: had Covid. She got symptoms 05/24. Tested positive that day. Sore throat, headache, fever and malaise. Symptoms resolved except fatigue. No change in chronic cough from COPD. Rarely productive. Wheezes ( calls her wheezy). Mild JO. Hasn't had to stop any activity. 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 No issues with stairs, etc. Normal appetite. Neck pain. Pain in right chest (3-4 years; stress test okay). Used to come and go. Now seems to radiate down from the neck mass. COPE in right occipital area. Comes and go for about month. Quit smoking at time of diagnosis. Smoked a ppd for about 45 years. No alcohol. . Three older children. Previous therapy: 1) Concurrent chemotherapy and radiation with cisplatin etoposide. Completed chemotherapy 08/31/2023. Presents urgently today for a left neck lump. Interim history: She appreciated a lump in the lower part of her right neck. May have fluctuated in size. No recent symptoms of URI including sore throat. Lower back pain has gotten appreciably worse in the last few weeks. Sometimes when she turns, she describes a slipping sensation and has a severe exacerbation of pain when that occurs. Pain does not radiate down the legs. No leg weakness. 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 metoprolol succinate ER (TOPROL XL) 25 mg 24 hr tablet Take 1 tablet by mouth once daily. acetaminophen (TYLENOL) 325 mg tablet Take 650 mg by mouth every 6 hours as needed. vitamin B complex (B COMPLEX ORAL) Take 1 tablet by mouth once daily. acetylcysteine (NAC) 600 mg capsule Take 1,200 mg by mouth two times a day. (Patient not taking: Reported on 08/27/2024) Cholecalciferol, Vitamin D3, (VITAMIN D-3) 50 mcg (2,000 unit) cap Take 2,000 Units by mouth once daily. (Patient not taking: Reported on 08/27/2024) calcium citrate (CALCITRATE) 200 mg (950 mg) tab Take 950 mg by mouth two times a day. (Patient not taking: Reported on 08/27/2024) Magnesium Gluconate 30 mg (550 mg) tab Take 0.5 tablets by mouth two times a day. (Patient not taking: Reported on 08/27/2024) iv contrast (will be provided with radiology test) CT Chest W -Inject, intravenously, once for 1 dose.No IV access, insert saline lock prior to the beginning of sedation, infusion, injection of imaging exam. Discontinue saline lock post exam. If Pt. has a central line or IVAD, may access for administration according to line specific nursing protocol. Once exam is complete flush line and de-access according to line specific nursing protocol in the CT contrast administration guidelines link. (Patient not taking: Reported on 02/21/2024) iv contrast (will be provided with radiology test) CT ABD/PEL -Inject, intravenously, on (more content not included)... [facility] XR LUMBAR 2V AP/LATon 2024 XR LUMBAR 2V AP/LAT * * *Final Report* * * DATE OF EXAM: Aug 27 2024 10:37AM [id number] - XR LUMBAR 2V AP/LAT / PROCEDURE REASON: multiple diagnoses * * * * Physician Interpretation * * * * EXAM(s): XR LUMBAR 2V AP/LAT..... HISTORY: 59 years old Clinical information: Chronic midline low back pain without sciatica Chronic midline low back pain without sciatica Small cell lung cancer, unspecified laterality (HCC) PT STATES HISTORY OF LOWER BACK PAIN TECHNIQUE: Images: XR LUMBAR 2V AP/LAT Comparison: 05/02/2024 . RESULT: Findings: Degenerative disc disease at the L1-2 level with marginal sclerosis, disc space narrowing, and prominent anterior osteophyte formation. No compression fractures. Osteopenia. Pedicles intact. Paraspinous soft tissues are normal. Vascular calcification noted.. IMPRESSION: Degenerative disc disease at L1-L2. No change since 05/02/2024 Countersinker Balance Screw Hole: PSCB Transcribe Date/Time: Aug 30 2024 3:57P Dictated by : IRVING HENDRICKSON MD This examination was interpreted and the report reviewed and electronically signed by: IRVING HENDRICKSON MD on Aug 30 2024 3:59PM EST [id number] [facility] CNPMeka 08-23-2024 CNPN Telephone (RGMOB) ----- KELLIE KANG I ([id number]) 1965 F T Date Time Provider Department 08/23/24 GREG PATEL RGMOB During your visit today, we recorded the following information about you: Kacey Karimi 08/23/2024 2:46 PM Signed Kirt, Patient came in requesting a disc of her CT scans that were completed on 07/26/24 and 04/25/24. She said she will be back on 07/27/24, and can pick it up then at the [facility] radiology desk. Please advise, thank you! Kacey. Lei Palmer, PSS 08/26/2024 9:39 AM Signed CD READ[facility] FOR [facility] Lei Palmer PSS 08/26/2024 2:21 PM Signed Pt is aware Allergies As of Date: 08/23/2024 (No Known Allergies) Date Reviewed: 08/02/2024 Reviewed by: Xiao Perez APRN.[employer] - Fully Assessed Reason for Visit: Results [95] Cmt: Disc Prescriptions as of 08/26/2024 - acetylcysteine (NAC) 600 mg capsule Take 1,200 mg by mouth two times a day. - Cholecalciferol, Vitamin D3, (VITAMIN D-3) 50 mcg (2,000 unit) cap Take 2,000 Units by mouth once daily. - calcium citrate (CALCITRATE) 200 mg (950 mg) tab Take 950 mg by mouth two times a day. - Magnesium Gluconate 30 mg (550 mg) tab Take 0.5 tablets by mouth two times a day. - docusate sodium (COLACE) 100 mg capsule Take 100 mg by mouth once daily. - metoprolol succinate ER (TOPROL XL) 25 mg 24 hr tablet Take 1 tablet by mouth once daily. - iv contrast (will be provided with radiology test) CT Chest W -Inject, intravenously, once for 1 dose.No IV access, insert saline lock prior to the beginning of sedation, infusion, injection of imaging exam. Discontinue saline lock post exam. If Pt. has a central line or IVAD, may access for administration according to line specific nursing protocol. Once exam is complete flush line and de-access according to line specific nursing protocol in the CT contrast administration guidelines link. - iv contrast (will be provided with radiology test) CT ABD/PEL -Inject, intravenously, once for 1 dose.No IV access, insert saline lock prior to the beginning of sedation, infusion, injection of imaging exam. Discontinue saline lock post exam. If Pt. has a central line or IVAD, may access for administration according to line specific nursing protocol. Once exam is complete flush line and de-access according to line specific nursing protocol in the CT contrast administration guidelines link. - enteric contrast (will be provided with radiology test) For CT ABD/PEL W IVCON Routine order Administer, As Directed One Time Only, via Oral, Rectal, both Oral and Rectal, Enteric Tube, Stoma or Indwelling Catheter, Enteric Contrast as designated per enteric contrast guidelines - acetaminophen (TYLENOL) 325 mg tablet Take 650 mg by mouth every 6 hours as needed. - iv contrast (will be provided with radiology test) CT Chest W -Inject, intravenously, once for 1 dose.No IV access, insert saline lock prior to the beginning of sedation, infusion, injection of imaging exam. Discontinue saline lock post exam. If Pt. has a central line or IVAD, may access for administration according to line specific nursing protocol. Once exam is complete flush line and de-access according to line specific nursing protocol in the CT contrast administration guidelines link. - iv contrast (will be provided with radiology test) CT ABD/PEL -Inject, intravenously, once for 1 dose.No IV access, insert saline lock prior to the beginning of sedation, infusion, injection of imaging exam. Discontinue saline lock post exam. If Pt. has a central line or IVAD, may access for administration according to line specific nursing protocol. Once exam is complete flush line and de-access according to line specific nursing protocol in the CT contrast administration guidelines link. - enteric contrast (will be provided with radiology test) For CT ABD/PEL W IVCON Routine order Administer, As Directed One Time Only, via Oral, Rectal, both Oral and Rectal, Enteric Tube, Stoma or Indwelling Catheter, Enteric Contrast as designated per enteric contrast guidelines - vitamin B complex (B COMPLEX ORAL) Take 1 tablet by mouth once daily. - albuterol HFA (PROVENTIL HFA, VENTOLIN HFA) 90 mcg/actuation inhaler Inhale 2 Puffs as instructed every 4 hours as needed. 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 CNTHERAPYon 08-20-2024 CNTHERAPY OT/PT/Speech Visit ( PTWS) ----- KELLIE KANG I ([id number]) 1965 F CHT Date Time Provider Department 08/20/24 10:00 AM АЛЕКСАНДР DUGAN PTWS Date Time Provider Department [place] 08/20/2024 10:00 AM [id number], COLIN PTWS Bartolome Huang Reason for Visit: PT Discharge [752] Primary Visit Diagnosis:Acute right-sided low back pain without sciatica [M54.50] Allergies As of Date: 08/20/2024 (No Known Allergies) Date Reviewed: 08/02/2024 Reviewed by: Xiao Perez APRN.[employer]GE - Fully Assessed Prescriptions as of 08/20/2024 - acetylcysteine (NAC) 600 mg capsule Take 1,200 mg by mouth two times a day. - Cholecalciferol, Vitamin D3, (VITAMIN D-3) 50 mcg (2,000 unit) cap Take 2,000 Units by mouth once daily. - calcium citrate (CALCITRATE) 200 mg (950 mg) tab Take 950 mg by mouth two times a day. - Magnesium Gluconate 30 mg (550 mg) tab Take 0.5 tablets by mouth two times a day. - docusate sodium (COLACE) 100 mg capsule Take 100 mg by mouth once daily. - metoprolol succinate ER (TOPROL XL) 25 mg 24 hr tablet Take 1 tablet by mouth once daily. - iv contrast (will be provided with radiology test) CT Chest W -Inject, intravenously, once for 1 dose.No IV access, insert saline lock prior to the beginning of sedation, infusion, injection of imaging exam. Discontinue saline lock post exam. If Pt. has a central line or IVAD, may access for administration according to line specific nursing protocol. Once exam is complete flush line and de-access according to line specific nursing protocol in the CT contrast administration guidelines link. - iv contrast (will be provided with radiology test) CT ABD/PEL -Inject, intravenously, once for 1 dose.No IV access, insert saline lock prior to the beginning of sedation, infusion, injection of imaging exam. Discontinue saline lock post exam. If Pt. has a central line or IVAD, may access for administration according to line specific nursing protocol. Once exam is complete flush line and de-access according to line specific nursing protocol in the CT contrast administration guidelines link. - enteric contrast (will be provided with radiology test) For CT ABD/PEL W IVCON Routine order Administer, As Directed One Time Only, via Oral, Rectal, both Oral and Rectal, Enteric Tube, Stoma or Indwelling Catheter, Enteric Contrast as designated per enteric contrast guidelines - acetaminophen (TYLENOL) 325 mg tablet Take 650 mg by mouth every 6 hours as needed. - iv contrast (will be provided with radiology test) CT Chest W -Inject, intravenously, once for 1 dose.No IV access, insert saline lock prior to the beginning of sedation, infusion, injection of imaging exam. Discontinue saline lock post exam. If Pt. has a central line or IVAD, may access for administration according to line specific nursing protocol. Once exam is complete flush line and de-access according to line specific nursing protocol in the CT contrast administration guidelines link. - iv contrast (will be provided with radiology test) CT ABD/PEL -Inject, intravenously, once for 1 dose.No IV access, insert saline lock prior to the beginning of sedation, infusion, injection of imaging exam. Discontinue saline lock post exam. If Pt. has a central line or IVAD, may access for administration according to line specific nursing protocol. Once exam is complete flush line and de-access according to line specific nursing protocol in the CT contrast administration guidelines link. - enteric contrast (will be provided with radiology test) For CT ABD/PEL W IVCON Routine order Administer, As Directed One Time Only, via Oral, Rectal, both Oral and Rectal, Enteric Tube, Stoma or Indwelling Catheter, Enteric Contrast as designated per enteric contrast guidelines - vitamin B complex (B COMPLEX ORAL) Take 1 tablet by mouth once daily. - albuterol HFA (PROVENTIL HFA, VENTOLIN HFA) 90 mcg/actuation inhaler Inhale 2 Puffs as instructed every 4 hours as needed. Normal [facility] CNTHERAPYon 08-16-2024 CNTHERAPY OT/PT/Speech Visit ( PTWS) ----- KELLIE KANG I ([id number]) 1965 F CHT Date Time Provider Department 08/16/24 11:00 AM WHIT SHEPPARD Date Time Provider Department Center 08/16/2024 11:00 AM [id number] SHEPPARD Reason for Visit: Physical Therapy [503] Primary Visit Diagnosis:Acute right-sided low back pain without sciatica [M54.50] Allergies As of Date: 08/16/2024 (No Known Allergies) Date Reviewed: 08/02/2024 Reviewed by: Xiao Perez APRN.[facility] - Fully Assessed Prescriptions as of 08/16/2024 - acetylcysteine (NAC) 600 mg capsule Take 1,200 mg by mouth two times a day. - Cholecalciferol, Vitamin D3, (VITAMIN D-3) 50 mcg (2,000 unit) cap Take 2,000 Units by mouth once daily. - calcium citrate (CALCITRATE) 200 mg (950 mg) tab Take 950 mg by mouth two times a day. - Magnesium Gluconate 30 mg (550 mg) tab Take 0.5 tablets by mouth two times a day. - docusate sodium (COLACE) 100 mg capsule Take 100 mg by mouth once daily. - metoprolol succinate ER (TOPROL XL) 25 mg 24 hr tablet Take 1 tablet by mouth once daily. - iv contrast (will be provided with radiology test) CT Chest W -Inject, intravenously, once for 1 dose.No IV access, insert saline lock prior to the beginning of sedation, infusion, injection of imaging exam. Discontinue saline lock post exam. If Pt. has a central line or IVAD, may access for administration according to line specific nursing protocol. Once exam is complete flush line and de-access according to line specific nursing protocol in the CT contrast administration guidelines link. - iv contrast (will be provided with radiology test) CT ABD/PEL -Inject, intravenously, once for 1 dose.No IV access, insert saline lock prior to the beginning of sedation, infusion, injection of imaging exam. Discontinue saline lock post exam. If Pt. has a central line or IVAD, may access for administration according to line specific nursing protocol. Once exam is complete flush line and de-access according to line specific nursing protocol in the CT contrast administration guidelines link. - enteric contrast (will be provided with radiology test) For CT ABD/PEL W IVCON Routine order Administer, As Directed One Time Only, via Oral, Rectal, both Oral and Rectal, Enteric Tube, Stoma or Indwelling Catheter, Enteric Contrast as designated per enteric contrast guidelines - acetaminophen (TYLENOL) 325 mg tablet Take 650 mg by mouth every 6 hours as needed. - iv contrast (will be provided with radiology test) CT Chest W -Inject, intravenously, once for 1 dose.No IV access, insert saline lock prior to the beginning of sedation, infusion, injection of imaging exam. Discontinue saline lock post exam. If Pt. has a central line or IVAD, may access for administration according to line specific nursing protocol. Once exam is complete flush line and de-access according to line specific nursing protocol in the CT contrast administration guidelines link. - iv contrast (will be provided with radiology test) CT ABD/PEL -Inject, intravenously, once for 1 dose.No IV access, insert saline lock prior to the beginning of sedation, infusion, injection of imaging exam. Discontinue saline lock post exam. If Pt. has a central line or IVAD, may access for administration according to line specific nursing protocol. Once exam is complete flush line and de-access according to line specific nursing protocol in the CT contrast administration guidelines link. - enteric contrast (will be provided with radiology test) For CT ABD/PEL W IVCON Routine order Administer, As Directed One Time Only, via Oral, Rectal, both Oral and Rectal, Enteric Tube, Stoma or Indwelling Catheter, Enteric Contrast as designated per enteric contrast guidelines - vitamin B complex (B COMPLEX ORAL) Take 1 tablet by mouth once daily. - albuterol HFA (PROVENTIL HFA, VENTOLIN HFA) 90 mcg/actuation inhaler Inhale 2 Puffs as instructed every 4 hours as needed. Normal [facility] CNTHERAPYon 08-09-2024 CNTHERAPY OT/PT/Speech Visit ( PTWS) ----- KELLIE KANG I ([id number]) 1965 F CHT Date Time Provider Department 08/09/24 11:00 AM WHIT SHEPPARD Date Time Provider Department Center 08/09/2024 11:00 AM [id number] SHEPPARD Reason for Visit: Physical Therapy [503] Primary Visit Diagnosis:Acute right-sided low back pain without sciatica [M54.50] Allergies As of Date: 08/09/2024 (No Known Allergies) Date Reviewed: 08/02/2024 Reviewed by: Xiao Perez APRN.[facility] - Fully Assessed Prescriptions as of 08/09/2024 - acetylcysteine (NAC) 600 mg capsule Take 1,200 mg by mouth two times a day. - Cholecalciferol, Vitamin D3, (VITAMIN D-3) 50 mcg (2,000 unit) cap Take 2,000 Units by mouth once daily. - calcium citrate (CALCITRATE) 200 mg (950 mg) tab Take 950 mg by mouth two times a day. - Magnesium Gluconate 30 mg (550 mg) tab Take 0.5 tablets by mouth two times a day. - docusate sodium (COLACE) 100 mg capsule Take 100 mg by mouth once daily. - metoprolol succinate ER (TOPROL XL) 25 mg 24 hr tablet Take 1 tablet by mouth once daily. - iv contrast (will be provided with radiology test) CT Chest W -Inject, intravenously, once for 1 dose.No IV access, insert saline lock prior to the beginning of sedation, infusion, injection of imaging exam. Discontinue saline lock post exam. If Pt. has a central line or IVAD, may access for administration according to line specific nursing protocol. Once exam is complete flush line and de-access according to line specific nursing protocol in the CT contrast administration guidelines link. - iv contrast (will be provided with radiology test) CT ABD/PEL -Inject, intravenously, once for 1 dose.No IV access, insert saline lock prior to the beginning of sedation, infusion, injection of imaging exam. Discontinue saline lock post exam. If Pt. has a central line or IVAD, may access for administration according to line specific nursing protocol. Once exam is complete flush line and de-access according to line specific nursing protocol in the CT contrast administration guidelines link. - enteric contrast (will be provided with radiology test) For CT ABD/PEL W IVCON Routine order Administer, As Directed One Time Only, via Oral, Rectal, both Oral and Rectal, Enteric Tube, Stoma or Indwelling Catheter, Enteric Contrast as designated per enteric contrast guidelines - acetaminophen (TYLENOL) 325 mg tablet Take 650 mg by mouth every 6 hours as needed. - iv contrast (will be provided with radiology test) CT Chest W -Inject, intravenously, once for 1 dose.No IV access, insert saline lock prior to the beginning of sedation, infusion, injection of imaging exam. Discontinue saline lock post exam. If Pt. has a central line or IVAD, may access for administration according to line specific nursing protocol. Once exam is complete flush line and de-access according to line specific nursing protocol in the CT contrast administration guidelines link. - iv contrast (will be provided with radiology test) CT ABD/PEL -Inject, intravenously, once for 1 dose.No IV access, insert saline lock prior to the beginning of sedation, infusion, injection of imaging exam. Discontinue saline lock post exam. If Pt. has a central line or IVAD, may access for administration according to line specific nursing protocol. Once exam is complete flush line and de-access according to line specific nursing protocol in the CT contrast administration guidelines link. - enteric contrast (will be provided with radiology test) For CT ABD/PEL W IVCON Routine order Administer, As Directed One Time Only, via Oral, Rectal, both Oral and Rectal, Enteric Tube, Stoma or Indwelling Catheter, Enteric Contrast as designated per enteric contrast guidelines - vitamin B complex (B COMPLEX ORAL) Take 1 tablet by mouth once daily. - albuterol HFA (PROVENTIL HFA, VENTOLIN HFA) 90 mcg/actuation inhaler Inhale 2 Puffs as instructed every 4 hours as needed. [employer] Fe[employer]: Therapy (PT/OT/Speech/Resp) ID: [id number] 08/09/2024 11:42 AM Author: WHIT SHEPPARD Signed by WHIT SHEPPARD [employer]PER[employer] on 08/09/2024 at 11:42 AM Document text: Program_ID:[id number] Access Code: [email or web address] URL: [email or web address] Date: 08-09-2024 Prepared By: Александр Dugan Program Notes Exercises - Supine Lower Trunk Rotation - 2 x daily - 7 x weekly - 2 sets - 10 reps - Supine Pelvic Tilt - 2 x daily - 7 x weekly - 2 sets - 10 reps - Supine Transversus Abdominis Bracing - Hands on Stomach - 2 x daily - 7 x weekly - 2 sets - 10 reps - Seated Transversus Abdominis Bracing - 2 x daily - 7 x weekly - 2 sets - 10 reps Normal [facility] THERAPY NTon 08-09-2024 THERAPY NT HNO ID: [id number] Author: WHIT SHEPPARD PTA Service: ? Author Type: Clinical Nurse Occupational Medicine Type: Therapy (PT/OT/Speech/Resp) Filed: 08/09/2024 11:42 Note Text: Program_ID:[id number] Access Code: [email or web address] URL: [email or web address] Date: 08-09-2024 Prepared By: Александр Dugan Program Notes Exercises - Supine Lower Trunk Rotation - 2 x daily - 7 x weekly - 2 sets - 10 reps - Supine Pelvic Tilt - 2 x daily - 7 x weekly - 2 sets - 10 reps - Supine Transversus Abdominis Bracing - Hands on Stomach - 2 x daily - 7 x weekly - 2 sets - 10 reps - Seated Transversus Abdominis Bracing - 2 x daily - 7 x weekly - 2 sets - 10 reps Normal [facility] CNOVSPon 08-02-2024 CNOVSP Visit (SP) Office (HEMAWS) ----- KELLIE KANG I ([id number]) 1965 F CHT Date Time Provider Department 08/02/24 10:30 AM XIAO PEREZ During your visit today, we recorded the following information about you: Temperature Pulse Blood pressure Weight 98 degrees 107/minute 110/62 84.8 kg Xiao Perez APRN.[facility] 08/02/2024 10:25 AM Signed Chief Complaint Patient presents with: Established Patient HPI: Kellie Kang is a 59 year old female who presents here today for follow up lung cancer. Per Dr. East's previous note: H/o former smoker who presented for evaluation of right neck mass. Right lower neck mass for about a month. Saw Dr. Lara who ordered CT neck. She had a CT of the neck with contrast enhancement on 05/12/2023. This study revealed a nodule in the thyroid, right-sided gland measuring 9 x 6 mm. There is heterogeneity versus second nodule in the left thyroid. Measurements were not rendered. There was right supraclavicular adenopathy, level 4B measuring 4.1 x 2.0 cm. There is mass effect and moderate narrowing of the right jugular vein and an adjacent enlarged lymph node measuring 1.3 x 1.6 cm. There is brachial enlarged lymph nodes measuring 1.3 x 1.3. Note was made of anterior cervical fusion hardware and previous discectomy changes at L5-6. Emphysematous changes were noted in the lung apices. Patient underwent FNA of the right-sided cervical adenopathy on 05/19/2023. Pathology: Positive for malignant cells. 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 Per initial consultation: had Covid. She got symptoms 05/24. Tested positive that day. Sore throat, headache, fever and malaise. Symptoms resolved except fatigue. No change in chronic cough from COPD. Rarely productive. Wheezes ( calls her wheezy). Mild JO. Hasn't had to stop any activity. 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 No issues with stairs, etc. Normal appetite. Neck pain. Pain in right chest (3-4 years; stress test okay). Used to come and go. Now seems to radiate down from the neck mass. COPE in right occipital area. Comes and go for about month. Quit smoking at time of diagnosis. Smoked a ppd for about 45 years. No alcohol. . Three older children. Previous therapy: 1) Concurrent chemotherapy and radiation with cisplatin etoposide. Completed chemotherapy 08/31/2023. I changed family doctors. He wants me to take a bunch of vitamins and supplements. I need you to fill out this form for my 's work. Pt. requesting refill of pain meds and something for weight loss. Pt. attended two PT appts for back pain. Appetite:Good. Wt. up 11# since 2023 Energy level:Sucks. Pt. walking at least 15 minutes most days. Denies fevers or recent illness. 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 Past medical history, appointments, medications, allergies reviewed. No changes. EXAM: BP 110/62 Pulse 107 Temp 36.7 ?C (98 ?F) (Temporal) Wt 84.8 kg (186 lb 15.2 oz) SpO2 95% BMI 32.96 kg/m? APPEARANCE Well appearing, alert, in no acute distress, well-hydrated, well nourished. HEART RRR with normal S1 and S2, no murmurs LUNG clear to auscultation LYMPH NODES No cervical lymphadenopathy, No supraclavicular lymphadenopathy, and No axillary lymphadenopathy. ABDOMEN bowel sounds normoactive, soft, non-tender EXTREMITIES No edema NEURO Awake, alert and oriented x 3, Normal gait, and No involuntary motions. SKIN Skin color, texture, turgor normal, no suspicious rashes or lesions LABS: Latest Ref Rng 01/17/2024 04/25/2024 07/26/2024 WBC 3.70 - 11.00 k/uL 3.70 3.92 4.77 RBC 3.90 - 5.20 m/uL 3.40 (L) 3.76 (L) 3.67 (L) Hemoglobin 11.5 - 15.5 g/dL 10.2 (L) 11.5 11.1 (L) Hematocrit 36.0 - 46.0 % 30.8 (L) 34.8 (L) 33.4 (L) MCV 80.0 - 100.0 fL 90.6 92.6 91.0 MCH 26.0 - 34.0 pg 30.0 30.6 30.2 MCHC 30.5 - 36.0 g/dL 33.1 33.0 33.2 RDW-CV 11.5 - 15.0 % 11.9 12.3 13.0 Platelet Count 150 - 400 k/uL 226 244 232 MPV 9.0 - 12.7 fL 9.5 9.7 8.9 (L) Neut% % 65.7 61.7 68.6 Abs Neut (ANC) 1.45 - 7.50 k/uL 2.43 2.42 3.27 Lymph% % 22.2 23.2 18.7 Abs Lymph 1.00 - 4.00 k/uL 0.82 (L) 0.91 (L) 0.89 (L) Mcnairy% % 8.6 9.2 8.2 Abs Mcnairy <0.87 k/uL 0.32 0.36 0.39 Eosin% % 2.7 4.6 3.1 Abs Eosin <0.46 k/uL 0.10 0.18 0.15 Baso% % 0.8 1.0 1.0 Abs Baso <0.11 k/uL 0.03 0.04 0.05 Immature Gran % % 0.0 0.3 0.4 IMMATURE GRANS (ABS) <0.10 k/uL <0.03 <0.03 <0.03 NRBC /100 WBC 0.0 0.0 0.0 Absolute nRBC <0.01 k/uL <0.01 <0.01 <0.01 DTYPE Auto Auto Auto Latest Ref Rng 01/17/2024 (more content not included)... Normal [facility] CBC W Auto Differential pane l (Bld)on 07-26-2024 Basophils (Bld) [#/Vol] 0.05 10*3/uL Normal <0.11 [facility] Comment on above: Order Comment: Speci men Type: BLOOD SPECIMENOrdering Facility: [facility] Address: [address] [place] [address] Performed By: #### 5 7021-8 ####[facility] [id number] [place] [address] [place] Basophils/100 WBC (Bld) 1.0 % Normal [facility] Comment on above: Order Comment: Speci men Type: BLOOD SPECIMENOrdering Facility: [facility] Address: [address] [place] [address] Performed By: #### 5 7021-8 ####[facility] [id number] [place] [address] [place] Differential cell count method Nom (Bld) Auto Normal [facility] Comment on above: Order Comment: Speci men Type: BLOOD SPECIMENOrdering Facility: [facility] Address: [address] [place] [address] Performed By: #### 5 7021-8 ####[facility] [id number] [place] [address] [place] Eosinophils (Bld) [#/Vol] 0.15 10*3/uL Normal <0.46 [facility] Comment on above: Order Comment: Speci men Type: BLOOD SPECIMENOrdering Facility: [facility] Address: [address] [place] [address] Performed By: #### 5 7021-8 ####[facility] MILLWNCLIA [id number] [place] [address] [place] Eosinophils/100 WBC (Bld) 3.1 % Normal [facility] Comment on above: Order Comment: Speci men Type: BLOOD SPECIMENOrdering Facility: [facility] Address: [address] [place] [address] Performed By: #### 5 7021-8 ####[facility] MLIA [id number] [place] [address] [place] Erythrocyte distribution width (RBC) [Ratio] 13.0 % Normal 11.5-15.0 [facility] Comment on above: Order Comment: Speci men Type: BLOOD SPECIMENOrdering Facility: [facility] Address: [address] [place] [address] Performed By: #### 5 7021-8 ####[facility] MLIA [id number] [place] [address] [place] Hematocrit (Bld) [Volume fraction] 33.4 % Low 36.0-46.0 [facility] Comment on above: Order Comment: Speci men Type: BLOOD SPECIMENOrdering Facility: [facility] Address: [address] [place] [address] Performed By: #### 5 7021-8 ####[facility] MLIA [id number] [place] [address] [place] Hemoglobin (Bld) [Mass/Vol] 11.1 g/dL Low 11.5-15.5 [facility] Comment on above: Order Comment: Speci men Type: BLOOD SPECIMENOrdering Facility: [facility] Address: [address] [place] [address] Performed By: #### 5 7021-8 ####[facility] [id number] [place] [address] [place] Immature granulocytes (Bld) [#/Vol] 10*3/uL Normal <0.10 [facility] Comment on above: Order Comment: Speci men Type: BLOOD SPECIMENOrdering Facility: [facility] Address: [address] [place] [address] Performed By: #### 5 7021-8 ####[facility] [id number] [place] [address] [place] Immature granulocytes/100 WBC (Bld) 0.4 % Normal [facility] Comment on above: Order Comment: Speci men Type: BLOOD SPECIMENOrdering Facility: [facility] Address: [address] [place] [address] Performed By: #### 5 7021-8 ####[facility] [id number] [place] [address] [place] Lymphocytes (Bld) [#/Vol] 0.89 10*3/uL Low 1.00-4.00 [facility] Comment on above: Order Comment: Speci men Type: BLOOD SPECIMENOrdering Facility: [facility] Address: [address] [place] [address] Performed By: #### 5 7021-8 ####[facility] [id number] [place] [address] [place] Lymphocytes/100 WBC (Bld) 18.7 % Normal [facility] Comment on above: Order Comment: Speci men Type: BLOOD SPECIMENOrdering Facility: [facility] Address: [address] [place] [address] Performed By: #### 5 7021-8 ####[facility] [id number] [place] [address] [place] MCH (RBC) [Entitic mass] 30.2 pg Normal 26.0-34.0 [facility] Comment on above: Order Comment: Speci men Type: BLOOD SPECIMENOrdering Facility: [facility] Address: [address] [place] [address] Performed By: #### 5 7021-8 ####[facility] KAJAL [id number] [place] [address] [place] MCHC (RBC) [Mass/Vol] 33.2 g/dL Normal 30.5-36.0 [facility] Comment on above: Order Comment: Speci men Type: BLOOD SPECIMENOrdering Facility: [facility] Address: [address] [place] [address] Performed By: #### 5 7021-8 ####[facility] [id number] [place] [address] [place] MCV (RBC) [Entitic vol] 91.0 fL Normal 80.0-100.0 [facility] Comment on above: Order Comment: Speci men Type: BLOOD SPECIMENOrdering Facility: [facility] Address: [address] [place] [address] Performed By: #### 5 7021-8 ####[facility] [id number] [place] [address] [place] Monocytes (Bld) [#/Vol] 0.39 10*3/uL Normal <0.87 [facility] Comment on above: Order Comment: Speci men Type: BLOOD SPECIMENOrdering Facility: [facility] Address: [address] [place] [address] Performed By: #### 5 7021-8 ####[facility] [id number] [place] [address] [place] Monocytes/100 WBC (Bld) 8.2 % Normal [facility] Comment on above: Order Comment: Speci men Type: BLOOD SPECIMENOrdering Facility: [facility] Address: [address] [place] [address] Performed By: #### 5 7021-8 ####[facility] MILLWNCLIA [id number] [place] [address] [place] Neutrophils (Bld) [#/Vol] 3.27 10*3/uL Normal 1.45-7.50 [facility] Comment on above: Order Comment: Speci men Type: BLOOD SPECIMENOrdering Facility: [facility] Address: [address] [place] [address] Performed By: #### 5 7021-8 ####[facility] [id number] [place] [address] [place] Neutrophils/100 WBC (Bld) 68.6 % Normal [facility] Comment on above: Order Comment: Speci men Type: BLOOD SPECIMENOrdering Facility: [facility] Address: [address] [place] [address] Performed By: #### 5 7021-8 ####[facility] [id number] [place] [address] [place] Nucleated RBC (Bld) [#/Vol] 10*3/uL Normal <0.01 [facility] Comment on above: Order Comment: Speci men Type: BLOOD SPECIMENOrdering Facility: [facility] Address: [address] [place] [address] Performed By: #### 5 7021-8 ####[facility] [id number] [place] [address] [place] Nucleated RBC/100 WBC (Bld) [Ratio] 0.0 /100 WBC Normal [facility] Comment on above: Order Comment: Speci men Type: BLOOD SPECIMENOrdering Facility: [facility] Address: [address] [place] [address] Performed By: #### 5 7021-8 ####[facility] [id number] [place] [address] [place] Platelet mean volume (Bld) [Entitic vol] 8.9 fL Low 9.0-12.7 [facility] Comment on above: Order Comment: Speci men Type: BLOOD SPECIMENOrdering Facility: [facility] Address: [address] [place] [address] Performed By: #### 5 7021-8 ####[facility] [id number] [place] [address] [place] Platelets (Bld) [#/Vol] 232 10*3/uL Normal 150-400 [facility] Comment on above: Order Comment: Speci men Type: BLOOD SPECIMENOrdering Facility: [facility] Address: [address] [place] [address] Performed By: #### 5 7021-8 ####[facility]ENTERNCLIA [id number] [place] [address] [place] RBC (Bld) [#/Vol] 3.67 10*6/uL Low 3.90-5.20 [facility] Comment on above: Order Comment: Speci men Type: BLOOD SPECIMENOrdering Facility: [facility] Address: [address] [place] [address] Performed By: #### 5 7021-8 ####[facility]ERNCLIA [id number] [place] [address] [place] WBC (Bld) [#/Vol] 4.77 10*3/uL Normal 3.70-11.00 [facility] Comment on above: Order Comment: Speci men Type: BLOOD SPECIMENOrdering Facility: [facility] Address: [address] [place] [address] Performed By: #### 5 7021-8 ####[facility]ENTERNCLIA [id number] [place] [address] [place] ABD/PEL W IVCONon 025 CT ABD/PEL W IVCON * * *Final Report* * * DATE OF EXAM: Jul 26 2024 12:01PM [facility] 0530 - CT ABD/PEL W IVCON / PROCEDURE REASON: Small cell lung cancer, unspecified laterality (HCC) * * * * Physician Interpretation * * * * EXAMINATION: CT ABDOMEN AND PELVIS WITH IV CONTRAST CLINICAL HISTORY: Small cell lung cancer, unspecified laterality (HCC) TECHNIQUE: CT of the abdomen and pelvis was performed using standard technique, scanning from just above the dome of the diaphragm to the symphysis pubis. MQ: CTAP_3 Contrast: IV: 150 ml of Omnipaque 350 Oral: 10 ml of Omni 240 10-25ml diluted with water CT Radiation dose: Integrated Dose-length product (DLP) for this visit = cap 844 mGy*cm. CT Dose Reduction Employed: Automated exposure control(AEC) and iterative recon COMPARISON: 01/17/2024 CT abdomen pelvis RESULT: Liver: No mass. Small hypodensities not fully assessable but likely benign. Normal hepatic morphology. Biliary: No bile duct dilation. Gallbladder is unremarkable. Spleen: No mass. No splenomegaly. Pancreas: No mass or duct dilation. Adrenals: No mass. Kidneys: Stable LEFT renal cyst No mass, calculus or hydronephrosis. GI tract: No dilation or wall thickening. Mild colonic diverticulosis without acute diverticulitis. Lymph nodes: Retroesophageal lymph node measured 0.8 cm in short axis on series 8 image 15, previously 0.8 cm. Portocaval lymph node measured 0.9 cm in short access on image 35, previously 1.1 cm. No abdominal or pelvic lymphadenopathy. Mesentery/Peritoneum: No ascites or mass. Retroperitoneum: No mass. Vasculature: - Abdominal aorta and iliac arteries: Atherosclerotic calcifications without aneurysm. - Celiac and SMA: Patent without stenosis. - Portal venous system (SMV, splenic vein, portal vein and branches): Patent. - Hepatic veins: Patent. Pelvis: No mass, ascites or fluid collection. Bones/Soft Tissues: Mild degenerative disease in thoracolumbar spine. No aggressive or concerning osseous lesions. Lower thorax: A chest CT performed will be reported separately. Localizer images: No additional findings. IMPRESSION: No acute abnormalities or metastasis in the abdomen and pelvis. Countersinker Balance Screw Hole: KACIE Transcribe Date/Time: Jul 28 2024 2:02P Dictated by : LILIAN CARRERA MD This examination was interpreted and the report reviewed and electronically signed by: LILIAN CARRERA MD on Jul 28 2024 2:08PM EST [id number] Normal [facility] CT CHEST W IVCONon CT CHEST W IVCON * * *Final Report* * * DATE OF EXAM: Jul 26 2024 12:01PM [facility] 0539 - CT CHEST W IVCON / PROCEDURE REASON: Small cell lung cancer, unspecified laterality (HCC) * * * * Physician Interpretation * * * * EXAMINATION: CHEST CT WITH CONTRAST CLINICAL HISTORY: Small cell lung cancer, unspecified laterality (HCC) Technique: Spiral CT acquisition of the chest from the thoracic inlet to the upper abdomen following IV contrast. MQ: CTCW_6 Contrast: 150 mL Omnipaque [address] Radiation dose: Integrated Dose-length product (DLP) for this visit = cap 844 mGy*cm CT Dose Reduction Employed: Automated exposure control(AEC) and iterative recon Comparison: 04/25/2024 CT chest RESULT: Limitations: None. Lines, tubes, and devices: None. Lung parenchyma and airways: No consolidation. Similar appearance of RIGHT perihilar groundglass opacity with minimal reticulation, stable postradiation changes. No suspicious pulmonary nodule. The central airways are patent. Pleural space: No pleural effusion. No pleural thickening. Lower neck, lymph nodes, and mediastinum: The imaged thyroid gland is normal. Stable retroesophageal 0.8 cm lymph node. No lymphadenopathy in the supraclavicular, axillary, mediastinal, or hilar regions. Heart, pericardium, and thoracic vessels: The thoracic aorta and main pulmonary artery are normal in caliber. The cardiac chambers are normal in size. No coronary artery atherosclerotic calcifications are noted, although the study is not optimized for coronary assessment. No pericardial effusion or thickening. Bones and soft tissues: Moderate degenerative changes in the thoracic spine. No destructive bone lesion. Chest wall is unremarkable. Upper abdomen: Same day CT abdomen pelvis reported separately. Localizer images: No additional findings. IMPRESSION: No CT evidence of acute abnormality, recurrence or metastasis in the thorax. Countersinker Balance Screw Hole: PSCTang Transcribe Date/Time: Jul 28 2024 2:08P Dictated by : LILIAN CARRERA MD This examination was interpreted and the report reviewed and electronically signed by: LILIAN CARRERA MD on Jul 28 2024 2:12PM EST [id number] Normal [facility] CT NECK SOFT TISSUE W IVCONo n 07-26-2024 CT NECK SOFT TISSUE W IVCON * * *Final Report* * * DATE OF EXAM: Jul 26 2024 12:01PM [facility] 0013 - CT NECK SOFT TISSUE W IVCON / PROCEDURE REASON: Small cell lung cancer, unspecified laterality (HCC) * * * * Physician Interpretation * * * * CT NECK SOFT TISSUE W IVCON History: Small cell lung cancer, unspecified laterality (HCC); Limited stage, status post chemoradiation completed 08/31/2023 Technique: A series of contiguous helical scans were performed from the skull base to the aortic arch following injection of intravenous contrast. Contrast: Omnipaque 350. Contrast Dose: 150 cc Route of Administration: IV CT Radiation dose: Integrated Dose-length product (DLP) for this visit = neck 655 mGy*cm. CT Dose Reduction Employed: Automated exposure control(AEC) and iterative recon COMPARISON: Chest CT, same day, multiple prior neck CTs, most recently 04/25/2024, and PET/CT, 06/05/2023 RESULT: Postoperative Change: None apparent. Aerodigestive tract: Normal. Major salivary glands: Normal. Thyroid gland: Normal. Lymph Nodes: No pathologic cervical lymph nodes by size or morphologic criteria. No recurrent lymphadenopathy at level 4 on the right. Nonenlarged cervical lymph nodes are similar to previous. Carotid/Parapharyngeal/Re tropharyngeal Spaces: Partially calcified atherosclerotic plaque in the carotid arteries bilaterally without significant narrowing, the major cervical vessels are otherwise unremarkable. Orbits, Face and Skull Base: The paranasal sinuses are clear. The soft tissues of the face, including the orbits, and the skull base are unremarkable. Imaged intracranial contents: No intracranial mass effect or hydrocephalus. No abnormal intracranial enhancement. Cervical spine and remaining osseous structures: No discrete osteolytic or osteoblastic process. Degenerative changes in the spine status post C5-6 ACDF, previous. The maxillary teeth are absent. Dental caries with associated. Lucency in the remaining mandibular teeth. Lung apices: For detailed intrathoracic findings, please see concurrent CT chest which is reported under a separate accession. Other: Not applicable. IMPRESSION: No soft tissue mass or lymphadenopathy in the neck. Countersinker Balance Screw Hole: KACIE Transcribe Date/Time: Jul 26 2024 12:41P Dictated by : KENIA DHALIWAL MD This examination was interpreted and the report reviewed and electronically signed by: KENIA DHALIWAL MD on Jul 26 2024 12:47PM EST [id number] Normal [facility] metabolic 2000 panelon 07-26-2024 Albumin [Mass/Vol] 4.3 g/dL Normal 3.9-4.9 [facility] Comment on above: Order Comment: Speci men Type: BLOOD SPECIMENOrdering Facility: [facility] Address: [address] [place] [address] Performed By: #### 2 4323-8 ####[facility]ENTERA [id number] [place] [address] [place] ALP [Catalytic activity/Vol] 72 U/L Normal 34-123 [facility] Comment on above: Order Comment: Speci men Type: BLOOD SPECIMENOrdering Facility: [facility] Address: [address] [place] [address] Performed By: #### 2 4323-8 ####[facility] [id number] [place] [address] [place] ALT [Catalytic activity/Vol] 19 U/L Normal 7-38 [facility] Comment on above: Order Comment: Speci men Type: BLOOD SPECIMENOrdering Facility: [facility] Address: [address] [place] [address] Performed By: #### 2 4323-8 ####[facility] [id number] [place] [address] [place] Anion gap [Moles/Vol] 7 mmol/L Low 8-15 [facility] Comment on above: Order Comment: Speci men Type: BLOOD SPECIMENOrdering Facility: [facility] Address: [address] [place] [address] Performed By: #### 2 4323-8 ####[facility]ITALTOWNCLIA [id number] [place] [address] [place] AST [Catalytic activity/Vol] 20 U/L Normal 13-35 [facility] Comment on above: Order Comment: Speci men Type: BLOOD SPECIMENOrdering Facility: [facility] Address: [address] [place] [address] Performed By: #### 2 4323-8 ####[facility]ITALWNCLIA [id number] [place] [address] [place] Bilirubin [Mass/Vol] 0.3 mg/dL Normal 0.2-1.3 [facility] Comment on above: Order Comment: Speci men Type: BLOOD SPECIMENOrdering Facility: [facility] Address: [address] [place] [address] Performed By: #### 2 4323-8 ####[facility]ERNCLIA [id number] [place] [address] [place] Calcium [Mass/Vol] 9.7 mg/dL Normal 8.5-10.2 [facility] Comment on above: Order Comment: Speci men Type: BLOOD SPECIMENOrdering Facility: [facility] Address: [address] [place] [address] Performed By: #### 2 4323-8 ####[facility]PITALWARLIA [id number] [place] [address] [place] Chloride [Moles/Vol] 108 mmol/L High 98-107 [facility] Comment on above: Order Comment: Speci men Type: BLOOD SPECIMENOrdering Facility: [facility] Address: [address] [place] [address] Performed By: #### 2 4323-8 ####[facility]ERNCLIA [id number] [place] [address] [place] CO2 [Moles/Vol] 25 mmol/L Normal 22-30 [facility] Comment on above: Order Comment: Speci men Type: BLOOD SPECIMENOrdering Facility: [facility] Address: [address] [place] [address] Performed By: #### 2 4323-8 ####[facility] [id number] [place] [address] [place] Creatinine [Mass/Vol] 1.10 mg/dL High 0.58-0.96 [facility] Comment on above: Order Comment: Speci men Type: BLOOD SPECIMENOrdering Facility: [facility] Address: [address] [place] [address] Performed By: #### 2 4323-8 ####[facility]CL[facility] [id number] [place] [address] [place] Creatinine and Glomerular filtration rate.predicted panel (S/P/Bld) 58 mL/min/1.73m??? Low >=60 [facility] Comment on above: Order Comment: Speci men Type: BLOOD SPECIMENOrdering Facility: [facility] Address: [address] [place] [address] Result Comment: Vani mated Glomerular Filtration Rate (eGFR) is calculated using the 2020 CKD-EPI creatinine equation. This equation utilizes serum creatinine, sex, and age as parameters. The creatinine assay has traceable calibration to isotope dilution-mass spectrometry. Refer to KDIGO guidelines for clinical interpretation. In patients with unstable renal function, e.g. those with acute kidney injury, the eGFR may not accurately reflect actual GFR. Performed By: #### 2 4323-8 ####[facility] [id number] [place] [address] [place] Glucose [Mass/Vol] 101 mg/dL High 74-99 [facility] Comment on above: Order Comment: Speci men Type: BLOOD SPECIMENOrdering Facility: [facility] Address: [address] [place] [address] Result Comment: The [place] [employer] (ADA) provides guidance for cutoff values for fasting glucose and random glucose. The ADA defines fasting as no caloric intake for at least 8 hours. Fasting plasma glucose results between 100 to 125 mg/dL indicate increased risk for diabetes (prediabetes). Fasting plasma glucose results greater than or equal to 126 mg/dL meet the criteria for diagnosis of diabetes. In the absence of unequivocal hyperglycemia, results should be confirmed by repeat testing. In a patient with classic symptoms of hyperglycemia or hyperglycemic crisis, random plasma glucose results greater than or equal to 200 mg/dL meet the criteria for diagnosis of diabetes. Reference: Standards of Medical Care in Diabetes 2016, [place] [employer]. Diabetes Care. 2016.39(Suppl 1). Performed By: #### 2 4323-8 ####[facility] [id number] [place] [address] [place] Potassium [Moles/Vol] 4.3 mmol/L Normal 3.7-5.1 [facility] Comment on above: Order Comment: Speci men Type: BLOOD SPECIMENOrdering Facility: [facility] Address: [address] [place] [address] Performed By: #### 2 4323-8 ####[facility] [id number] [place] [address] [place] Protein [Mass/Vol] 6.8 g/dL Normal 6.3-8.0 [facility] Comment on above: Order Comment: Speci men Type: BLOOD SPECIMENOrdering Facility: [facility] Address: [address] [place] [address] Performed By: #### 2 4323-8 ####[facility] [id number] [place] [address] [place] Sodium [Moles/Vol] 140 mmol/L Normal 136-144 [facility] Comment on above: Order Comment: Speci men Type: BLOOD SPECIMENOrdering Facility: [facility] Address: [address] [place] [address] Performed By: #### 2 4323-8 ####[facility] MILLTOWNCLIA [id number] [place] [address] [place] Urea nitrogen [Mass/Vol] 17 mg/dL Normal 7-21 [facility] Comment on above: Order Comment: Speci men Type: BLOOD SPECIMENOrdering Facility: [facility] Address: [facility] [place] [address] Performed By: #### 2 4323-8 ####[facility] BARTOLOME LOPEZNCLIA [id number] [place] [address] [place] CNTHERAPYon 07-01-2024 CNTHERAPY OT/PT/Speech Visit ( PTWS) ----- KELLIE KANG I ([id number]) 1965 F CHT Date Time Provider Department 07/01/24 10:15 AM WHIT SHEPPARD Date Time Provider Department [place] 07/01/2024 10:15 AM [id number] SHEPPARD Evangelina Reason for Visit: Physical Therapy [503] Primary Visit Diagnosis:Acute right-sided low back pain without sciatica [M54.50] Allergies As of Date: 07/01/2024 (No Known Allergies) Date Reviewed: 05/06/2024 Reviewed by: Suzanne Ren RPFT - Fully Assessed Prescriptions as of 07/01/2024 - docusate sodium (COLACE) 100 mg capsule Take 100 mg by mouth once daily. - metoprolol succinate ER (TOPROL XL) 25 mg 24 hr tablet Take 1 tablet by mouth once daily. - iv contrast (will be provided with radiology test) CT Chest W -Inject, intravenously, once for 1 dose.No IV access, insert saline lock prior to the beginning of sedation, infusion, injection of imaging exam. Discontinue saline lock post exam. If Pt. has a central line or IVAD, may access for administration according to line specific nursing protocol. Once exam is complete flush line and de-access according to line specific nursing protocol in the CT contrast administration guidelines link. - iv contrast (will be provided with radiology test) CT ABD/PEL -Inject, intravenously, once for 1 dose.No IV access, insert saline lock prior to the beginning of sedation, infusion, injection of imaging exam. Discontinue saline lock post exam. If Pt. has a central line or IVAD, may access for administration according to line specific nursing protocol. Once exam is complete flush line and de-access according to line specific nursing protocol in the CT contrast administration guidelines link. - enteric contrast (will be provided with radiology test) For CT ABD/PEL W IVCON Routine order Administer, As Directed One Time Only, via Oral, Rectal, both Oral and Rectal, Enteric Tube, Stoma or Indwelling Catheter, Enteric Contrast as designated per enteric contrast guidelines - acetaminophen (TYLENOL) 325 mg tablet Take 650 mg by mouth every 6 hours as needed. - iv contrast (will be provided with radiology test) CT Chest W -Inject, intravenously, once for 1 dose.No IV access, insert saline lock prior to the beginning of sedation, infusion, injection of imaging exam. Discontinue saline lock post exam. If Pt. has a central line or IVAD, may access for administration according to line specific nursing protocol. Once exam is complete flush line and de-access according to line specific nursing protocol in the CT contrast administration guidelines link. - iv contrast (will be provided with radiology test) CT ABD/PEL -Inject, intravenously, once for 1 dose.No IV access, insert saline lock prior to the beginning of sedation, infusion, injection of imaging exam. Discontinue saline lock post exam. If Pt. has a central line or IVAD, may access for administration according to line specific nursing protocol. Once exam is complete flush line and de-access according to line specific nursing protocol in the CT contrast administration guidelines link. - enteric contrast (will be provided with radiology test) For CT ABD/PEL W IVCON Routine order Administer, As Directed One Time Only, via Oral, Rectal, both Oral and Rectal, Enteric Tube, Stoma or Indwelling Catheter, Enteric Contrast as designated per enteric contrast guidelines - vitamin B complex (B COMPLEX ORAL) Take 1 tablet by mouth once daily. - prochlorperazine (COMPAZINE) 10 mg tablet Take 1 tablet by mouth every 6 hours as needed. - albuterol HFA (PROVENTIL HFA, VENTOLIN HFA) 90 mcg/actuation inhaler Inhale 2 Puffs as instructed every 4 hours as needed. Normal [facility] SCRN MAMM (CAD)W/GEORGINA BILATo n 06-13-2024 SCRN MAMM (CAD)W/GEORGINA BILAT [facility] Imaging Services [address] [place], [place] [id number] SCRN MAMM (CAD)W/GEORGINA BILAT MR#: [id number] Acct: [id number] Name: KELLIE KANG Rep #: [id number] : 1965 F 59 From: Luis thompson MD PCP: Dr. Greg Patel MD Status: [facility] Study: SCRN MAMM (CAD)W/GEORGINA BILAT Date of Exam: 06/02 08/26 Exam# [id number] Ordering Dr: Greg Patel MD [id number] MAMMOGRAPHY - BILATERAL SCREENING REASON FOR EXAM: Female, 59 years old. Routine annual screening examination. PERTINENT HISTORY: Non-contributory. History of lung cancer. TECHNIQUE: Digital bilateral breast georgina (3D mammographic acquisition) in the CC and MLO projections. 2-D mediolateral oblique (MLO) and craniocaudad (CC) views of both breasts were obtained. CAD: Full Field Digital Mammography with Computer Added Detection was performed. COMPARISON: None. Baseline examination. FINDINGS: Breast Composition: The breasts are heterogeneously dense, which may obscure small masses. There are no dominant masses or suspicious calcifications. Small benign-appearing right axillary lymph nodes. No other significant abnormalities are identified. There has been no significant change since the prior study. BI/SCRN MAMM (CAD)W/GEORGINA BILAT IMPRESSION: Stable bilateral screening mammogram. Yearly follow-up mammogram recommended. (A) ASSESSMENT CATEGORY: BIRADS Category 2: Benign. A letter regarding these results will be sent to the patient by the facility within 30 days. Approximately 10% of breast cancers are not detected by mammography. A normal mammogram should not delay biopsy of a clinically suspicious abnormality. [id number] Electronically Signed: Luis Olivas MD at 13:21 EST , CC: Dr. Greg Patel MD Countersinker Balance Screw Hole: Signed Normal [facility] CNTHERAPYon 06-11-2024 CNTHERAPY OT/PT/Speech Visit ( PTWS) ----- KELLIE KANG I ([id number]) 1965 F T Date Time Provider Department 06/11/24 8:30 AM АЛЕКСАНДР DUGAN PTWS Date Time Provider Department Center 06/11/2024 8:30 AM [id number], COLIN PTWS [facility] Reason for Visit: PT Eval [747] Primary Visit Diagnosis:Acute right-sided low back pain without sciatica [M54.50] Allergies As of Date: 06/11/2024 (No Known Allergies) Date Reviewed: 05/06/2024 Reviewed by: Suzanne Ren RPFT - Fully Assessed Prescriptions as of 06/11/2024 - docusate sodium (COLACE) 100 mg capsule Take 100 mg by mouth once daily. - metoprolol succinate ER (TOPROL XL) 25 mg 24 hr tablet Take 1 tablet by mouth once daily. - iv contrast (will be provided with radiology test) CT Chest W -Inject, intravenously, once for 1 dose.No IV access, insert saline lock prior to the beginning of sedation, infusion, injection of imaging exam. Discontinue saline lock post exam. If Pt. has a central line or IVAD, may access for administration according to line specific nursing protocol. Once exam is complete flush line and de-access according to line specific nursing protocol in the CT contrast administration guidelines link. - iv contrast (will be provided with radiology test) CT ABD/PEL -Inject, intravenously, once for 1 dose.No IV access, insert saline lock prior to the beginning of sedation, infusion, injection of imaging exam. Discontinue saline lock post exam. If Pt. has a central line or IVAD, may access for administration according to line specific nursing protocol. Once exam is complete flush line and de-access according to line specific nursing protocol in the CT contrast administration guidelines link. - enteric contrast (will be provided with radiology test) For CT ABD/PEL W IVCON Routine order Administer, As Directed One Time Only, via Oral, Rectal, both Oral and Rectal, Enteric Tube, Stoma or Indwelling Catheter, Enteric Contrast as designated per enteric contrast guidelines - acetaminophen (TYLENOL) 325 mg tablet Take 650 mg by mouth every 6 hours as needed. - iv contrast (will be provided with radiology test) CT Chest W -Inject, intravenously, once for 1 dose.No IV access, insert saline lock prior to the beginning of sedation, infusion, injection of imaging exam. Discontinue saline lock post exam. If Pt. has a central line or IVAD, may access for administration according to line specific nursing protocol. Once exam is complete flush line and de-access according to line specific nursing protocol in the CT contrast administration guidelines link. - iv contrast (will be provided with radiology test) CT ABD/PEL -Inject, intravenously, once for 1 dose.No IV access, insert saline lock prior to the beginning of sedation, infusion, injection of imaging exam. Discontinue saline lock post exam. If Pt. has a central line or IVAD, may access for administration according to line specific nursing protocol. Once exam is complete flush line and de-access according to line specific nursing protocol in the CT contrast administration guidelines link. - enteric contrast (will be provided with radiology test) For CT ABD/PEL W IVCON Routine order Administer, As Directed One Time Only, via Oral, Rectal, both Oral and Rectal, Enteric Tube, Stoma or Indwelling Catheter, Enteric Contrast as designated per enteric contrast guidelines - vitamin B complex (B COMPLEX ORAL) Take 1 tablet by mouth once daily. - prochlorperazine (COMPAZINE) 10 mg tablet Take 1 tablet by mouth every 6 hours as needed. - albuterol HFA (PROVENTIL HFA, VENTOLIN HFA) 90 mcg/actuation inhaler Inhale 2 Puffs as instructed every 4 hours as needed. Lithographic Press Feeder: Therapy (PT/OT/Speech/Resp) ID: [id number] 06/11/2024 9:11 AM Author: АЛЕКСАНДР DUGAN Signed by АЛЕКСАНДР DUGAN PT on 06/11/2024 at 9:12 AM Document text: Program_ID:[id number] Access Code: [email or web address] URL: [email or web address] Date: 06-11-2024 Prepared By: Александр Dugan Program Notes Exercises - Supine Lower Trunk Rotation - 2 x daily - 7 x weekly - 2 sets - 10 reps - Supine Pelvic Tilt - 2 x daily - 7 x weekly - 2 sets - 10 reps - Supine Transversus Abdominis Bracing - Hands on Stomach - 2 x daily - 7 x weekly - 2 sets - 10 reps Normal [facility] THERAPY NTon 06-11-2024 THERAPY NT HNO ID: [id number] Author: АЛЕКСАНДР DUGAN, PT Service: ? Author Type: Physical Therapist Type: Therapy (PT/OT/Speech/Resp) Filed: 06/11/2024 09:12 Note Text: Program_ID:[id number] Access Code: [email or web address] URL: [email or web address] Date: 06-11-2024 Prepared By: Александр Dugan Program Notes Exercises - Supine Lower Trunk Rotation - 2 x daily - 7 x weekly - 2 sets - 10 reps - Supine Pelvic Tilt - 2 x daily - 7 x weekly - 2 sets - 10 reps - Supine Transversus Abdominis Bracing - Hands on Stomach - 2 x daily - 7 x weekly - 2 sets - 10 reps Normal [facility] PTHINon 05-29-2024 PTH 85.1 pg/mL High 18.4-80.1 [facility] Comment on above: Order Comment: Order Date: 05/28/24 Order Info: [id number] - PTHIN Performed By: #### L 509.1000, L506.1000 #### [facility] [address] [place], [place], [id number] Vitamin D,25 Hydroxyon 05-29 Vitamin D 25-OH 15.4 ng/mL Normal [facility] Comment on above: Order Comment: Order Date: 05/28/24 Order Info: [id number] - VITD25 Result Comment: Grecia min D 25(OH) Status Range Deficiency <20 ng/mL (50nmol/L) Insufficiency 20 - 30 ng/mL (50 - 75 nmol/L) Sufficiency 30 - 100 ng/mL (75 - 250 nmol/L) Toxicity >100 ng/mL (>250 nmol/L) Performed By: #### L 509.1000, L506.1000 #### [facility] [address] [place], [place], [address] CNPMeka 05-16-2024 CNPN Telephone (HEMMOSES) ----- KELLIE KANG I ([id number]) 1965 F T Date Time Provider Department 05/16/24 [facility] During your visit today, we recorded the following information about you: Juliocesar Apple 05/16/2024 2:41 PM Signed Patient requesting urine results Raven East DO 05/16/2024 5:44 PM Signed Yes. If still having back pain, then referral to PT. I may need order pended. DO Jey Lara Melanie, LPN 05/17/2024 8:24 AM Signed Patient still c/o lower back pain. Dr. East- please file order. PSS- please contact patient to schedule physical therapy. ANGELLA Wood Paul A, DO 05/17/2024 8:44 AM Signed Thank you. Order filed. Allergies As of Date: 05/16/2024 (No Known Allergies) Date Reviewed: 05/06/2024 Reviewed by: Suzanne Ren RPFT - Fully Assessed Reason for Visit: Results [95] Primary Visit Diagnosis:Acute right-sided low back pain without sciatica [M54.50] Order(s):CONSULT TO PHYSICAL THERAPY [9032] Order #: [id number]: 1 FUTURE Prescriptions as of 05/21/2024 - docusate sodium (COLACE) 100 mg capsule Take 100 mg by mouth once daily. - metoprolol succinate ER (TOPROL XL) 25 mg 24 hr tablet Take 1 tablet by mouth once daily. - iv contrast (will be provided with radiology test) CT Chest W -Inject, intravenously, once for 1 dose.No IV access, insert saline lock prior to the beginning of sedation, infusion, injection of imaging exam. Discontinue saline lock post exam. If Pt. has a central line or IVAD, may access for administration according to line specific nursing protocol. Once exam is complete flush line and de-access according to line specific nursing protocol in the CT contrast administration guidelines link. - iv contrast (will be provided with radiology test) CT ABD/PEL -Inject, intravenously, once for 1 dose.No IV access, insert saline lock prior to the beginning of sedation, infusion, injection of imaging exam. Discontinue saline lock post exam. If Pt. has a central line or IVAD, may access for administration according to line specific nursing protocol. Once exam is complete flush line and de-access according to line specific nursing protocol in the CT contrast administration guidelines link. - enteric contrast (will be provided with radiology test) For CT ABD/PEL W IVCON Routine order Administer, As Directed One Time Only, via Oral, Rectal, both Oral and Rectal, Enteric Tube, Stoma or Indwelling Catheter, Enteric Contrast as designated per enteric contrast guidelines - acetaminophen (TYLENOL) 325 mg tablet Take 650 mg by mouth every 6 hours as needed. - iv contrast (will be provided with radiology test) CT Chest W -Inject, intravenously, once for 1 dose.No IV access, insert saline lock prior to the beginning of sedation, infusion, injection of imaging exam. Discontinue saline lock post exam. If Pt. has a central line or IVAD, may access for administration according to line specific nursing protocol. Once exam is complete flush line and de-access according to line specific nursing protocol in the CT contrast administration guidelines link. - iv contrast (will be provided with radiology test) CT ABD/PEL -Inject, intravenously, once for 1 dose.No IV access, insert saline lock prior to the beginning of sedation, infusion, injection of imaging exam. Discontinue saline lock post exam. If Pt. has a central line or IVAD, may access for administration according to line specific nursing protocol. Once exam is complete flush line and de-access according to line specific nursing protocol in the CT contrast administration guidelines link. - enteric contrast (will be provided with radiology test) For CT ABD/PEL W IVCON Routine order Administer, As Directed One Time Only, via Oral, Rectal, both Oral and Rectal, Enteric Tube, Stoma or Indwelling Catheter, Enteric Contrast as designated per enteric contrast guidelines - vitamin B complex (B COMPLEX ORAL) Take 1 tablet by mouth once daily. - prochlorperazine (COMPAZINE) 10 mg tablet Take 1 tablet by mouth every 6 hours as needed. - albuterol HFA (PROVENTIL HFA, VENTOLIN HFA) 90 mcg/actuation inhaler Inhale 2 Puffs as instructed every 4 hours as needed. 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 No new or enlarging in the neck. Countersinker Balance Screw Hole: PSCB Transcribe Date/Time: Apr 25 2024 1:30P Dictated by : MARTHA DUKE MD This examination was interpreted and the report reviewed and electronically signed by: MARTHA DUKE MD on Apr 25 2024 1:39PM [facility] DIVISION OF RADIOLOGY * * *Final Report* * * DATE OF EXAM: Apr 25 2024 12:27PM [facility] 0013 - CT NECK SOFT TISSUE W IVCON / PROCEDURE REASON: multiple diagnoses * * * * Physician Interpretation * * * * Examination: CT scan of the soft tissue neck with contrast. CT Contrast: Omnipaque 350 CT Contrast Volume (ml): 125 CT Contrast Route of Administration: Intravenous Dose-Length Product (DLP): neck 582 mGy*cm. CT Dose Reduction Employed: Automated exposure control(AEC) and iterative recon Clinical indication: Metastatic lung cancer. Follow-up. Comparison: Multiple CT neck studies most recently dated 01/17/2024 FINDINGS: Postoperative/posttreatme nt changes: None. Further decreased size of the right level 4 lymph nodes currently measuring 3 mm in short axis, previously 5 mm. No new or enlarging lymph node in the neck. Few scattered lymph nodes in the neck that are not pathologic by CT size criteria. The job service specialist, parotid, parapharyngeal, submandibular, sublingual, perivertebral, buccal, visceral, and retropharyngeal anterior and posterior cervical spaces are normal. Nasopharynx, oropharynx, oral cavity, hypopharyngeal, and laryngeal structures are unremarkable. No enhancing lesion or fluid collection in the visualized upper aerodigestive tract. Carotid arteries and internal jugular veins are patent. Thyroid gland is not enlarged. No sizable nodular lesion. A few tiny hypodense/hypoenhancing nodules in the thyroid gland (less than 5 mm). No enhancing lesion in the visualized brain parenchyma. Orbits are normal. Skull base is intact. Included paranasal sinuses and mastoid air cells are well aerated. Bones of the maxillofacial structures are intact. Bilateral temporomandibular joints are normal. Preserved visualized vertebral heights. Redemonstrated ACDF C5-C6. Multilevel mild degenerative changes of the visualized spine. No destructive osseous lesion. No focal consolidation in partially included lung apices. Please refer to concurrent CT chest for detailed evaluation of the lung parenchyma and mediastinal structures. DIVISION OF RADIOLOGY Provider, [facility] - 04/25/2024 * * *Final Report* * * DATE OF EXAM: Apr 25 2024 12:27PM [facility] 0013 - CT NECK SOFT TISSUE W IVCON / PROCEDURE REASON: multiple diagnoses * * * * Physician Interpretation * * * * Examination: CT scan of the soft tissue neck with contrast. CT Contrast: Omnipaque 350 CT Contrast Volume (ml): 125 CT Contrast Route of Administration: Intravenous Dose-Length Product (DLP): neck 582 mGy*cm. CT Dose Reduction Employed: Automated exposure control(AEC) and iterative recon Clinical indication: Metastatic lung cancer. Follow-up. Comparison: Multiple CT neck studies most recently dated 01/17/2024 FINDINGS: Postoperative/posttreatme nt changes: None. Further decreased size of the right level 4 lymph nodes currently measuring 3 mm in short axis, previously 5 mm. No new or enlarging lymph node in the neck. Few scattered lymph nodes in the neck that are not pathologic by CT size criteria. The job service specialist, parotid, parapharyngeal, submandibular, sublingual, perivertebral, buccal, visceral, and retropharyngeal anterior and posterior cervical spaces are normal. Nasopharynx, oropharynx, oral cavity, hypopharyngeal, and laryngeal structures are unremarkable. No enhancing lesion or fluid collection in the visualized upper aerodigestive tract. Carotid arteries and internal jugular veins are patent. Thyroid gland is not enlarged. No sizable nodular lesion. A few tiny hypodense/hypoenhancing nodules in the thyroid gland (less than 5 mm). No enhancing lesion in the visualized brain parenchyma. Orbits are normal. Skull base is intact. Included paranasal sinuses and mastoid air cells are well aerated. Bones of the maxillofacial structures are intact. Bilateral temporomandibular joints are normal. Preserved visualized vertebral heights. Redemonstrated ACDF C5-C6. Multilevel mild degenerative changes of the visualized spine. No destructive osseous lesion. No focal consolidation in partially included lung apices. Please refer to concurrent CT chest for detailed evaluation of the lung parenchyma and mediastinal structures. IMPRESSION IMPRESSION: Interval further decreased size of the right level 4 lymph nodes, currently not enlarged. No new or enlarging in the neck. Countersinker Balance Screw Hole: PSCB Transcribe Date/Time: Apr 25 2024 1:30P Dictated by : MARTHA DUKE MD This examination was interpreted and the report reviewed and electronically signed by: MARTHA DUKE MD on Apr 25 2024 1:39PM EST [facility] Radiology Study observation (narrative) [facility] CT Neck W contrast IVOrdered By: [facility] Provider on 04-25-2024 [facility] ECHOon 03-18-2024 CONCLUSIONS: - Exam indication: VT - The left ventricle is normal in size. Left ventricular systolic function is normal. EF = 69 5% (2D biplane) Normal left ventricular diastolic function. - The right ventricle is normal in size. Right ventricular systolic function is normal. Right ventricular wall appears thickened. - The patient has not had a prior CC echocardiographic exam for comparison. * * * Final * * * [facility] Echocardiography Report: Transthoracic Echo [facility] Date of service: 03/18/2024 7:10:44 AM Ordering physician: NEPTALI LAKE Indication: VT Technologist: Werner Hendrix [facility] Interpreting physician: Neptali Lake MD PATIENT: Name: MRS. KELLIE KANG : 1965 Age: 59 years Gender: F Primary rhythm: sinus. Height: 162.56 cm BSA: 1.86 m Weight: 76.66 kg BMI: 29.0 kg/m Heart rate 62 bpm Blood pressure 122/65 mmHg Color Doppler was utilized to interrogate the cardiac valves assessed and spectral Doppler was utilized to determine the flow velocities and pressure gradients reported in this exam. MEASUREMENTS: Value Indexed Normal Max aortic dimension 3.0 cm Ao < 3.8 Left atrium diameter 3.7 cm (2D) Left atrial volume 39 ml (4ch A-L) 21 ml/m Rosalia <= 34 LV ID (diastole) 4.2 cm (2D) 2.28 cm/m LV ID (systole) 2.8 cm (2D) 1.50 cm/m IVS, leaflet tips 0.8 cm (2D) Posterior wall thickness 0.7 cm (2D) Left ventricular mass 98 g (2D) 52 g/m LV stroke volume 46 ml (2D biplane) LV end diastolic volume 67 ml (2D biplane) 35.8 ml/m 29<=EDVi<62 LV end systolic volume 21 ml (2D biplane) 11.1 ml/m Ejection Fraction 69 % (2D biplane) EF > 54 FINDINGS: LEFT VENTRICLE The left ventricle is normal in size. Left ventricular systolic function is normal. Normal left ventricular diastolic function. Mitral annular lateral E/e': 11.1. Mitral annular septal E/e': 7.1. Diastolic Function: Respiratory Variation Expiration Inspiration % Difference MV Peak E 99.6 cm/s 80.2 cm/s 19.5 % TV Peak E 51.4 cm/s 59.2 cm/s -15.2 % Wall Motion: All scored segments are normal. RIGHT VENTRICLE The right ventricle is normal in size. Right ventricular systolic function is normal. RV systolic tissue Doppler velocity is 3.1 cm/s. Tricuspid annular displacement is 2.1 cm. Estimated right atrial pressure is 8 mmHg based on IVC assessment. LEFT ATRIUM The left atrial cavity is normal in size. RIGHT ATRIUM The right atrial cavity is normal in size. Inferior Vena Cava: The inferior vena cava appears normal measuring 2.0 cm. The vessel decreases less than 50 percent with inspiration. MITRAL VALVE The mitral valve leaflets are structurally normal. There is trace mitral valve regurgitation. The pressure half time is 59 msec. The peak mitral E/A ratio is 1.25. The average mitral E/e' ratio is 9.1. The mitral flow deceleration time is 203 msec. TRICUSPID VALVE The tricuspid valve leaflets are structurally normal. There is no tricuspid valve regurgitation. AORTIC VALVE The aortic valve cusps are structurally normal. There is no aortic valve regurgitation. The peak gradient is 5 mmHg (peak velocity = 115.0 cm/s). PULMONIC VALVE The pulmonic valve cusps are structurally normal. There is no pulmonic valve regurgitation. The peak gradient is 3 mmHg. AORTA The visualized aorta is normal in size. Measurements - Sinus: 2.8 cm. Mid ascending aorta 3.0 cm. PERICARDIUM There is a small pericardial effusion adjacent to the left ventricle and right ventricle measuring 0.4 cm. [facility] Echocardiography Echocardiography Rep ort: Transthoracic Echo [facility] Date of service: 03/18/2024 7:10:44 AM Ordering physician: NEPTALI LAKE Indication: VT Technologist: Werner Hendrix [facility] Interpreting physician: Neptali Lake MD PATIENT: Name: MRS. KELLIE KANG : 1965 Age: 59 years Gender: F Primary rhythm: sinus. Height: 162.56 cm BSA: 1.86 m Weight: 76.66 kg BMI: 29.0 kg/m Heart rate 62 bpm Blood pressure 122/65 mmHg Color Doppler was utilized to interrogate the cardiac valves assessed and spectral Doppler was utilized to determine the flow velocities and pressure gradients reported in this exam. MEASUREMENTS: Value Indexed Normal Max aortic dimension 3.0 cm Ao < 3.8 Left atrium diameter 3.7 cm (2D) Left atrial volume 39 ml (4ch A-L) 21 ml/m Rosalia <= 34 LV ID (diastole) 4.2 cm (2D) 2.28 cm/m LV ID (systole) 2.8 cm (2D) 1.50 cm/m IVS, leaflet tips 0.8 cm (2D) Posterior wall thickness 0.7 cm (2D) Left ventricular mass 98 g (2D) 52 g/m LV stroke volume 46 ml (2D biplane) LV end diastolic volume 67 ml (2D biplane) 35.8 ml/m 29<=EDVi<62 LV end systolic volume 21 ml (2D biplane) 11.1 ml/m Ejection Fraction 69 % (2D biplane) EF > 54 FINDINGS: LEFT VENTRICLE The left ventricle is normal in size. Left ventricular systolic function is normal. Normal left ventricular diastolic function. Mitral annular lateral E/e': 11.1. Mitral annular septal E/e': 7.1. Diastolic Function: Respiratory Variation Expiration Inspiration % Difference MV Peak E 99.6 cm/s 80.2 cm/s 19.5 % TV Peak E 51.4 cm/s 59.2 cm/s -15.2 % Wall Motion: All scored segments are normal. RIGHT VENTRICLE The right ventricle is normal in size. Right ventricular systolic function is normal. RV systolic tissue Doppler velocity is 3.1 cm/s. Tricuspid annular displacement is 2.1 cm. Estimated right atrial pressure is 8 mmHg based on IVC assessment. LEFT ATRIUM The left atrial cavity is normal in size. RIGHT ATRIUM The right atrial cavity is normal in size. Inferior Vena Cava: The inferior vena cava appears normal measuring 2.0 cm. The vessel decreases less than 50 percent with inspiration. MITRAL VALVE The mitral valve leaflets are structurally normal. There is trace mitral valve regurgitation. The pressure half time is 59 msec. The peak mitral E/A ratio is 1.25. The average mitral E/e' ratio is 9.1. The mitral flow deceleration time is 203 msec. TRICUSPID VALVE The tricuspid valve leaflets are structurally normal. There is no tricuspid valve regurgitation. AORTIC VALVE The aortic valve cusps are structurally normal. There is no aortic valve regurgitation. The peak gradient is 5 mmHg (peak velocity = 115.0 cm/s). PULMONIC VALVE The pulmonic valve cusps are structurally normal. There is no pulmonic valve regurgitation. The peak gradient is 3 mmHg. AORTA The visualized aorta is normal in size. Measurements - Sinus: 2.8 cm. Mid ascending aorta 3.0 cm. PERICARDIUM There is a small pericardial effusion adjacent to the left ventricle and right ventricle measuring 0.4 cm. CONCLUSIONS: - Exam indication: VT - The left ventricle is normal in size. Left ventricular systolic function is normal. EF = 69 5% (2D biplane) Normal left ventricular diastolic function. - The right ventricle is normal in size. Right ventricular systolic function is normal. Right ventricular wall appears thickened. - The patient has not had a prior CC echocardiographic exam for comparison. * * * Final * * * [facility] Medical Image : [id number] Normal [facility] NM CARDIAC PERF STRESS/PHARM on 03-18-2024 NM CARDIAC PERF STRESS/PHARM * * *Final Report* * * DATE OF EXAM: Mar 18 2024 10:53AM EDDI 0006 - NM CARDIAC PERF STRESS/PHARM / PROCEDURE REASON: I47.20-Ventricular tachycardia (HCC) * * * * Physician Interpretation * * * * Stress Aircraft Maintenance Technician Report: [facility] Date of service: 03/18/2024 8:22:01 AM Supervising physician: Chris Jama DO PATIENT: Name: MRS. KELLIE KANG Age: 59 years Gender: F The supervising physician was in the department and immediately available. * * * Final * * * PATIENT: Name: MRS. KELLIE KANG Age: 59 years Gender: F CONCLUSIONS: 1. SPECT Perfusion Study: Normal. 2. There is no scintigraphic evidence for inducible ischemia. 3. No evidence of scarred myocardium. 4. Left ventricle is normal in size. The left ventricle systolic function is normal. 5. Right ventricle is normal in size. The right ventricle systolic function is normal. 6. This is a low risk scan. Gated Stress IR:3D LVEF % 78 Prior Study Comparison No prior nuclear cardiology exam available for comparison. Nuclear Med Report:1-Day Gated SPECT Myocardial Perfusion with Regadenoson Stress: Myocardial perfusion imaging was performed at rest 30 minutes following the IV injection of the radiotracer. The patient received 0.4 mg of regadenoson, via rapid IV push, immediately followed by radiotracer IV. Gated post stress tomographic imaging was performed 30 to 60 minutes later. See administered radiotracer and doses below. [facility] Date of service: 03/18/2024 8:22:01 AM Ordering Physician: NEPTALI DOOKHAN. Requesting Physician: Indication: Dyspnea Interpreting physician: Junaid Sherwood MD Height: 162.56 cm BSA: 1.86 m? Weight: 76.66 kg BMI: 29.0 kg/m? Exam Type: Rest Stress Radiopharm: Tc-99m Tetrofosmin Tc-99m Tetrofosmin Dosage(mCi): 13.3 35.4 Atten Correction: not performed not performed Stress Agent: Regadenoson 0.4mg Supply provided from [facility] Resting Blood Press: 130/68 mmHg Image Quality The overall study imaging quality was deemed to be good. FINDINGS: Left Ventricle Wall Motion: Stress IR:3D - All segments are normal. Rest IR:3D - Gated Stress IR:3D - Reversibility - Stress IR:3D Stress IR:3D Gated Stress IR:3D LVEF: 78 % ED Volume: 59 ml ES Volume: 13 ml TID: 1.11 Perfusion Findings Stress IR:3D - Summed Score=0 All segments demonstrate normal perfusion. Rest IR:3D - Summed Score=0 All segments demonstrate normal perfusion. Stress IR:3D Rest IR:3D Summed Score=0 Summed Score=0 LEFT VENTRICLE The left ventricle is normal in size. Left ventricular systolic function is normal. Right Ventricle The right ventricle is normal in size. Right ventricle systolic function is normal. Stress Test Findings: There is no scintigraphic evidence for inducible ischemia. There is no evidence of scarring. * * * Final * * * Stress ECG Report: [facility] Date of service: 03/18/2024 8:22:01 AM Ordering physician: NEPTALI LAKE event specialist product demonstrator: Sadia Hunt Acid Retort Operator: Nelly Gonzales Interpreting physician: Chris Jama DO Patient name: MRS. KELLIE KANG Age: 59 years Gender: F Height: 162.56 cm BSA: 1.86 m? Weight: 76.66 kg BMI: 29.0 kg/m? Indication: Dyspnea on exertion Stress ECG Conclusion: Conclusion: Normal Stress ECG Summary: The patient's resting heart rate was 65 bpm and blood pressure was 130/68 mmHg. The test was terminated due to end of protocol. No symptoms provoked during stress. The maximum heart rate was 94 bpm, which is 58% of the predicted heart rate for age. Peak blood pressure was 153/65 mmHg. The double product achieved was [address]. Medications: Last Used METOPROLOL ALBUTEROL INHALER COMPAZINE Resting ECG: Normal Sinus Rhythm Symptoms at rest: No symptoms Pharamcologic Protocol: Regadenoson Stress Exercise Table: +-----+--+---+---+ Stage HR SYS GRAHAM +-----+--+---+---+ 1 84 136 61 +-----+--+---+---+ 2 94 142 71 +-----+--+---+---+ 3 85 153 65 +-----+--+---+---+ 4 85 138 71 +-----+--+---+---+ 5 82 137 63 +-----+--+---+---+ 6 84 139 61 +-----+--+---+---+ +-----+--+---+---+ HR SYS GRAHAM +-----+--+---+---+ Final 94 153 65 +-----+--+---+---+ Stress Observations: Resting HR: 65 bpm Peak HR: 94 bpm (58% MPHR) Resting BP: 130 / 68 mmHg Peak BP: 153 / 65 mmHg Rate Pressure Product (RPP): 63221 Stress Exercise Observations: Reason for test termination: end of protocol, Symptoms during test: No symptoms provoked during stres (more content not included)... [facility] Heart Perfusion W stress and W radionuclide Marija 03-18-2024 * * *Final Report* * * DATE OF EXAM: Mar 18 2024 10:53AM EDDI 0006 - NM CARDIAC PERF STRESS/PHARM / PROCEDURE REASON: I47.20-Ventricular tachycardia (HCC) * * * * Physician Interpretation * * * * Stress Aircraft Maintenance Technician Report: [facility] Date of service: 03/18/2024 8:22:01 AM Supervising physician: Chris Jama DO PATIENT: Name: MRS. KELLIE KANG Age: 59 years Gender: F The supervising physician was in the department and immediately available. * * * Final * * * PATIENT: Name: MRS. KELLIE KANG Age: 59 years Gender: F CONCLUSIONS: 1. SPECT Perfusion Study: Normal. 2. There is no scintigraphic evidence for inducible ischemia. 3. No evidence of scarred myocardium. 4. Left ventricle is normal in size. The left ventricle systolic function is normal. 5. Right ventricle is normal in size. The right ventricle systolic function is normal. 6. This is a low risk scan. Gated Stress IR:3D LVEF % 78 Prior Study Comparison No prior nuclear cardiology exam available for comparison. Nuclear Med Report:1-Day Gated SPECT Myocardial Perfusion with Regadenoson Stress: Myocardial perfusion imaging was performed at rest 30 minutes following the IV injection of the radiotracer. The patient received 0.4 mg of regadenoson, via rapid IV push, immediately followed by radiotracer IV. Gated post stress tomographic imaging was performed 30 to 60 minutes later. See administered radiotracer and doses below. [facility] Date of service: 03/18/2024 8:22:01 AM Ordering Physician: NEPTALI LAKE. Requesting Physician: Indication: Dyspnea Interpreting physician: Junaid Sherwood MD Height: 162.56 cm BSA: 1.86 m Weight: 76.66 kg BMI: 29.0 kg/m Exam Type: Rest Stress Radiopharm: Tc-99m Tetrofosmin Tc-99m Tetrofosmin Dosage(mCi): 13.3 35.4 Atten Correction: not performed not performed Stress Agent: Regadenoson 0.4mg Supply provided from [facility] Resting Blood Press: 130/68 mmHg Image Quality The overall study imaging quality was deemed to be good. FINDINGS: Left Ventricle Wall Motion: Stress IR:3D - All segments are normal. Rest IR:3D - Gated Stress IR:3D - Reversibility - Stress IR:3D Stress IR:3D Gated Stress IR:3D LVEF: 78 % ED Volume: 59 ml ES Volume: 13 ml TID: 1.11 Perfusion Findings Stress IR:3D - Summed Score=0 All segments demonstrate normal perfusion. Rest IR:3D - Summed Score=0 All segments demonstrate normal perfusion. Stress IR:3D Rest IR:3D Summed Score=0 Summed Score=0 LEFT VENTRICLE The left ventricle is normal in size. Left ventricular systolic function is normal. Right Ventricle The right ventricle is normal in size. Right ventricle systolic function is normal. Stress Test Findings: There is no scintigraphic evidence for inducible ischemia. There is no evidence of scarring. * * * Final * * * Stress ECG Report: [facility] Date of service: 03/18/2024 8:22:01 AM Ordering physician: NEPTALI LAKE event specialist product demonstrator: Sadia Hunt Acid Retort Operator: Nelly Gonzales Interpreting physician: Chris Jama DO Patient name: MRS. KELLIE KANG Age: 59 years Gender: F Height: 162.56 cm BSA: 1.86 m Weight: 76.66 kg BMI: 29.0 kg/m Indication: Dyspnea on exertion Stress ECG Conclusion: Conclusion: Normal Stress ECG Summary: The patient's resting heart rate was 65 bpm and blood pressure was 130/68 mmHg. The test was terminated due to end of protocol. No symptoms provoked during stress. The maximum heart rate was 94 bpm, which is 58% of the predicted heart rate for age. Peak blood pressure was 153/65 mmHg. The double product achieved was [address]61. Medications: Last Used METOPROLOL ALBUTEROL INHALER COMPAZINE Resting ECG: Normal Sinus Rhythm Symptoms at rest: No symptoms Pharamcologic Protocol: Regadenoson Stress Exercise Table: +-----+--+---+---+ Stage HR SYS GRAHAM +-----+--+---+---+ 1 84 136 61 +-----+--+---+---+ 2 94 142 71 +-----+--+---+---+ 3 85 153 65 +-----+--+---+---+ 4 85 138 71 +-----+--+---+---+ 5 82 137 63 +-----+--+---+---+ (more content not included)... [facility] Provider, [facility] - 03/18/2024 * * *Final Report* * * DATE OF EXAM: Mar 18 2024 10:53AM EDDI 0006 - NM CARDIAC PERF STRESS/PHARM / PROCEDURE REASON: I47.20-Ventricular tachycardia (HCC) * * * * Physician Interpretation * * * * Stress Aircraft Maintenance Technician Report: [facility] Date of service: 03/18/2024 8:22:01 AM Supervising physician: Chris Jama DO PATIENT: Name: MRS. KELLIE KANG Age: 59 years Gender: F The supervising physician was in the department and immediately available. * * * Final * * * PATIENT: Name: MRS. KELLIE KANG Age: 59 years Gender: F CONCLUSIONS: 1. SPECT Perfusion Study: Normal. 2. There is no scintigraphic evidence for inducible ischemia. 3. No evidence of scarred myocardium. 4. Left ventricle is normal in size. The left ventricle systolic function is normal. 5. Right ventricle is normal in size. The right ventricle systolic function is normal. 6. This is a low risk scan. Gated Stress IR:3D LVEF % 78 Prior Study Comparison No prior nuclear cardiology exam available for comparison. Nuclear Med Report:1-Day Gated SPECT Myocardial Perfusion with Regadenoson Stress: Myocardial perfusion imaging was performed at rest 30 minutes following the IV injection of the radiotracer. The patient received 0.4 mg of regadenoson, via rapid IV push, immediately followed by radiotracer IV. Gated post stress tomographic imaging was performed 30 to 60 minutes later. See administered radiotracer and doses below. [facility] Date of service: 03/18/2024 8:22:01 AM Ordering Physician: NEPTALI LAKE. Requesting Physician: Indication: Dyspnea Interpreting physician: Junaid Sherwood MD Height: 162.56 cm BSA: 1.86 m Weight: 76.66 kg BMI: 29.0 kg/m Exam Type: Rest Stress Radiopharm: Tc-99m Tetrofosmin Tc-99m Tetrofosmin Dosage(mCi): 13.3 35.4 Atten Correction: not performed not performed Stress Agent: Regadenoson 0.4mg Supply provided from [facility] Resting Blood Press: 130/68 mmHg Image Quality The overall study imaging quality was deemed to be good. FINDINGS: Left Ventricle Wall Motion: Stress IR:3D - All segments are normal. Rest IR:3D - Gated Stress IR:3D - Reversibility - Stress IR:3D Stress IR:3D Gated Stress IR:3D LVEF: 78 % ED Volume: 59 ml ES Volume: 13 ml TID: 1.11 Perfusion Findings Stress IR:3D - Summed Score=0 All segments demonstrate normal perfusion. Rest IR:3D - Summed Score=0 All segments demonstrate normal perfusion. Stress IR:3D Rest IR:3D Summed Score=0 Summed Score=0 LEFT VENTRICLE The left ventricle is normal in size. Left ventricular systolic function is normal. Right Ventricle The right ventricle is normal in size. Right ventricle systolic function is normal. Stress Test Findings: There is no scintigraphic evidence for inducible ischemia. There is no evidence of scarring. * * * Final * * * Stress ECG Report: [facility] Date of service: 03/18/2024 8:22:01 AM Ordering physician: NEPTALI LAKE event specialist product demonstrator: Sadia Hunt Acid Retort Operator: Nelly Gonzales Interpreting physician: Chris Jama DO Patient name: MRS. KELLIE KANG Age: 59 years Gender: F Height: 162.56 cm BSA: 1.86 m Weight: 76.66 kg BMI: 29.0 kg/m Indication: Dyspnea on exertion Stress ECG Conclusion: Conclusion: Normal Stress ECG Summary: The patient's resting heart rate was 65 bpm and blood pressure was 130/68 mmHg. The test was terminated due to end of protocol. No symptoms provoked during stress. The maximum heart rate was 94 bpm, which is 58% of the predicted heart rate for age. Peak blood pressure was 153/65 mmHg. The double product achieved was [id number]. Medications: Last Used METOPROLOL ALBUTEROL INHALER COMPAZINE Resting ECG: Normal Sinus Rhythm Symptoms at rest: No symptoms Pharamcologic Protocol: Regadenoson Stress Exercise Table: +-----+--+---+---+ Stage HR SYS GRAHAM +-----+--+---+---+ 1 84 136 61 +-----+--+---+---+ 2 94 142 71 +-----+--+---+---+ 3 85 153 65 +-----+--+---+---+ 4 85 138 71 +-----+--+---+---+ 5 82 137 63 +-----+--+---+---+ 6 84 139 61 +-----+--+---+---+ +-----+--+---+---+ HR SYS GRAHAM +-----+--+---+---+ Final 94 153 65 +-----+--+---+---+ Stress Observations: Resting HR: 65 bpm Peak HR: 94 bpm (58% MPHR) Resting BP: 130 / 68 mmHg Peak BP: 153 / 65 mmHg Rate P (more content not included)... [facility] Radiology Study observation (narrative) [facility] [place] Heart Perfusion W stress and W radionuclide IVOrdered By: Ccf Provider on 03-18-2024 [facility] CNPNon 03-15-2024 CNPN Telephone (CDLBME) ----- KELLIE KANG I ([id number]) 1965 F T Date Time Provider Department 03/15/24 RODOLFO MONIQUE CDLIn*Situ ArchitectureE During your visit today, we recorded the following information about you: Allergies As of Date: 03/15/2024 (No Known Allergies) Date Reviewed: 02/21/2024 Reviewed by: Juliocesar Uribe MA - Fully Assessed Prescriptions as of 07/17/2024 - docusate sodium (COLACE) 100 mg capsule Take 100 mg by mouth once daily. - metoprolol succinate ER (TOPROL XL) 25 mg 24 hr tablet Take 1 tablet by mouth once daily. - iv contrast (will be provided with radiology test) CT Chest W -Inject, intravenously, once for 1 dose.No IV access, insert saline lock prior to the beginning of sedation, infusion, injection of imaging exam. Discontinue saline lock post exam. If Pt. has a central line or IVAD, may access for administration according to line specific nursing protocol. Once exam is complete flush line and de-access according to line specific nursing protocol in the CT contrast administration guidelines link. - iv contrast (will be provided with radiology test) CT ABD/PEL -Inject, intravenously, once for 1 dose.No IV access, insert saline lock prior to the beginning of sedation, infusion, injection of imaging exam. Discontinue saline lock post exam. If Pt. has a central line or IVAD, may access for administration according to line specific nursing protocol. Once exam is complete flush line and de-access according to line specific nursing protocol in the CT contrast administration guidelines link. - enteric contrast (will be provided with radiology test) For CT ABD/PEL W IVCON Routine order Administer, As Directed One Time Only, via Oral, Rectal, both Oral and Rectal, Enteric Tube, Stoma or Indwelling Catheter, Enteric Contrast as designated per enteric contrast guidelines - acetaminophen (TYLENOL) 325 mg tablet Take 650 mg by mouth every 6 hours as needed. - iv contrast (will be provided with radiology test) CT Chest W -Inject, intravenously, once for 1 dose.No IV access, insert saline lock prior to the beginning of sedation, infusion, injection of imaging exam. Discontinue saline lock post exam. If Pt. has a central line or IVAD, may access for administration according to line specific nursing protocol. Once exam is complete flush line and de-access according to line specific nursing protocol in the CT contrast administration guidelines link. - iv contrast (will be provided with radiology test) CT ABD/PEL -Inject, intravenously, once for 1 dose.No IV access, insert saline lock prior to the beginning of sedation, infusion, injection of imaging exam. Discontinue saline lock post exam. If Pt. has a central line or IVAD, may access for administration according to line specific nursing protocol. Once exam is complete flush line and de-access according to line specific nursing protocol in the CT contrast administration guidelines link. - enteric contrast (will be provided with radiology test) For CT ABD/PEL W IVCON Routine order Administer, As Directed One Time Only, via Oral, Rectal, both Oral and Rectal, Enteric Tube, Stoma or Indwelling Catheter, Enteric Contrast as designated per enteric contrast guidelines - vitamin B complex (B COMPLEX ORAL) Take 1 tablet by mouth once daily. - prochlorperazine (COMPAZINE) 10 mg tablet Take 1 tablet by mouth every 6 hours as needed. - albuterol HFA (PROVENTIL HFA, VENTOLIN HFA) 90 mcg/actuation inhaler Inhale 2 Puffs as instructed every 4 hours as needed. 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 No new or increasing cervical lymph nodes. 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 Dose-Length Product (DLP): 570 mGy*cm CT Dose Reduction Employed: Automated exposure control(AEC) and iterative recon COMPARISON: CT neck 11/20/2023 and 09/14/2023. PET/CT 06/05/2023. RESULT: Post-treatment changes: None apparent. Lymph nodes: Continued decrease in size of bouchra metastatic disease involving the right supraclavicular and level 4 lymph nodes. For example, right level 4 lymph node now measures 5 x 8 mm (5:93), previously 6 x 10 mm and with hazy surrounding margins, which is decreased from prior. No new or enlarging cervical lymph nodes. Aerodigestive tract: The nasal cavities, oral cavity, naso-oropharynx, pharyngeal mucosal space, laryngeal structures and infraglottic trachea are within normal limits. Major salivary glands: Within normal limits. Thyroid gland: Subcentimeter hypoattenuating right thyroid nodules, similar to prior, for which dedicated imaging follow-up is not required per institutional guidelines. Otherwise, thyroid gland is normal in size and otherwise homogeneous enhancement. Carotid space: Patent bilateral extracranial carotid and jugular systems. Intracranial contents: Imaged portions within normal limits. Paranasal sinuses, middle ears, mastoids: Clear. Orbits: Within normal limits. Bones: No suspicious osseous lesions in the imaged calvarium, skull base and spine. Normal cervicothoracic alignment. Mild spondylotic changes. Postsurgical changes of C5-C6 ACDF. Temporomandibular joints are maintained. Lungs: A chest CT was performed concurrently and is dictated separately. Customer Service Consultant (topogram) images: No additional findings. DIVISION OF RADIOLOGY Provider, 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 Dose-Length Product (DLP): 570 mGy*cm CT Dose Reduction Employed: Automated exposure control(AEC) and iterative recon COMPARISON: CT neck 11/20/2023 and 09/14/2023. PET/CT 06/05/2023. RESULT: Post-treatment changes: None apparent. Lymph nodes: Continued decrease in size of bouchra metastatic disease involving the right supraclavicular and level 4 lymph nodes. For example, right level 4 lymph node now measures 5 x 8 mm (5:93), previously 6 x 10 mm and with hazy surrounding margins, which is decreased from prior. No new or enlarging cervical lymph nodes. Aerodigestive tract: The nasal cavities, oral cavity, naso-oropharynx, pharyngeal mucosal space, laryngeal structures and infraglottic trachea are within normal limits. Major salivary glands: Within normal limits. Thyroid gland: Subcentimeter hypoattenuating right thyroid nodules, similar to prior, for which dedicated imaging follow-up is not required per institutional guidelines. Otherwise, thyroid gland is normal in size and otherwise homogeneous enhancement. Carotid space: Patent bilateral extracranial carotid and jugular systems. Intracranial contents: Imaged portions within normal limits. Paranasal sinuses, middle ears, mastoids: Clear. Orbits: Within normal limits. Bones: No suspicious osseous lesions in the imaged calvarium, skull base and spine. Normal cervicothoracic alignment. Mild spondylotic changes. Postsurgical changes of C5-C6 ACDF. Temporomandibular joints are maintained. Lungs: A chest CT was performed concurrently and is dictated separately. Customer Service Consultant (topogram) images: No additional findings. IMPRESSION IMPRESSION: Continued decrease in size of bouchra metastases involving the right level 4/supraclavicular lymph nodes. No new or increasing cervical lymph nodes. Countersinker Balance Screw Hole: [facility] Transcribe Date/Time: Jan 17 2024 12:18P Dictated by : DUY THOMPSON DO This examination was interpreted and the report reviewed and electronically signed by: REY PRIDE MD on Jan 17 2024 4:23PM EST [facility] Radiology Study observation (narrative) [facility] CT Neck W contrast IVOrdered By: Ccf Provider on 01-17-2024 [facility] MR Brain WO and W contrast I Von 01-01-2024 IMPRESSION: No evidence of intracranial metastatic disease. Countersinker Balance Screw Hole: [facility] Transcribe Date/Time: Jan 01 2024 12:30P Dictated by : SHOLA COHEN MD This examination was interpreted and the report reviewed and electronically signed by: SHOLA COHEN MD on Jan 01 2024 12:36PM [facility] DIVISION OF RADIOLOGY * * *Final Report* * * DATE OF EXAM: Jan 01 2024 12:10PM [facility] 0295 - MRI BRAIN WO/W IVCON / PROCEDURE REASON: multiple diagnoses * * * * Physician Interpretation * * * * EXAMINATION: MRI BRAIN WO/W IVCON CLINICAL HISTORY: Lung cancer, metastatic TECHNIQUE: Routine brain MRI protocol without and with contrast including diffusion images. MQ: MRBWOW_2 Contrast: 15 mL Dotarem IV COMPARISON: MRI brain 09/14/2023 RESULT: Acute Change: There is no evidence of restricted diffusion to suggest an acute infarct. Hemorrhage: No evidence of intraparenchymal hemorrhage. Mass Lesion/ Mass Effect: No evidence of an intracranial mass or extra-axial fluid collection. No abnormal parenchymal or leptomeningeal enhancement is noted following contrast administration. No mass effect. Chronic Change: Few small scattered patchy T2 FLAIR hyperintensities are present in the bilateral cerebral white matter compatible sequelae of chronic small vessel disease. Parenchyma: No significant volume loss for age. The brain parenchyma is otherwise within normal limits of signal intensity and morphology. Ventricles: Normal caliber and morphology. Skull Base: Hypothalamic and pituitary region are grossly normal. Craniocervical junction is normal. No significant marrow replacement process. Vasculature: The major intracranial arteries and dural venous sinuses are patent. Other: The visualized paranasal sinuses are clear. Small volume scattered fluid in the bilateral mastoid air cells. The orbits and extracranial soft tissues are unremarkable. DIVISION OF RADIOLOGY Provider, Vaishali Salazar bernice Narka - 01/01/2024 * * *Final Report* * * DATE OF EXAM: Jan 01 2024 12:10PM [facility] 0295 - MRI BRAIN WO/W IVCON / PROCEDURE REASON: multiple diagnoses * * * * Physician Interpretation * * * * EXAMINATION: MRI BRAIN WO/W IVCON CLINICAL HISTORY: Lung cancer, metastatic TECHNIQUE: Routine brain MRI protocol without and with contrast including diffusion images. MQ: MRBWOW_2 Contrast: 15 mL Dotarem IV COMPARISON: MRI brain 09/14/2023 RESULT: Acute Change: There is no evidence of restricted diffusion to suggest an acute infarct. Hemorrhage: No evidence of intraparenchymal hemorrhage. Mass Lesion/ Mass Effect: No evidence of an intracranial mass or extra-axial fluid collection. No abnormal parenchymal or leptomeningeal enhancement is noted following contrast administration. No mass effect. Chronic Change: Few small scattered patchy T2 FLAIR hyperintensities are present in the bilateral cerebral white matter compatible sequelae of chronic small vessel disease. Parenchyma: No significant volume loss for age. The brain parenchyma is otherwise within normal limits of signal intensity and morphology. Ventricles: Normal caliber and morphology. Skull Base: Hypothalamic and pituitary region are grossly normal. Craniocervical junction is normal. No significant marrow replacement process. Vasculature: The major intracranial arteries and dural venous sinuses are patent. Other: The visualized paranasal sinuses are clear. Small volume scattered fluid in the bilateral mastoid air cells. The orbits and extracranial soft tissues are unremarkable. IMPRESSION IMPRESSION: No evidence of intracranial metastatic disease. Countersinker Balance Screw Hole: [facility] Transcribe Date/Time: Jan 01 2024 12:30P Dictated by : SHOLA COHEN MD This examination was interpreted and the report reviewed and electronically signed by: SHOLA COHEN MD on Jan 01 2024 12:36PM EST [facility] Radiology Study observation (narrative) [facility] MR Brain WO and W contrast I VOrdered By: Ccf Provider on 01-01-2024 [facility] CBC W Auto Differential pane l (Bld)on 12-27-2023 Basophils (Bld) [#/Vol] 0.06 10*3/uL [facility] Basophils/100 WBC (Bld) 1.2 % [facility] Differential cell count method Nom (Bld) Auto [facility] Eosinophils (Bld) [#/Vol] 0.16 10*3/uL [facility] Eosinophils/100 WBC (Bld) 3.2 % [facility] Erythrocyte distribution width (RBC) [Ratio] 11.4 % Low 11.5 - 15.0 % [facility] Hematocrit (Bld) [Volume fraction] 35.7 % Low 36.0 - 46.0 % [facility] Hemoglobin (Bld) [Mass/Vol] 11.8 g/dL 11.5 - 15.5 g/dL [facility] Immature granulocytes (Bld) [#/Vol] [facility] Immature granulocytes/100 WBC (Bld) 0.2 % [facility] Interpretation and review of laboratory results Abnormal [facility] Lymphocytes (Bld) [#/Vol] 0.95 10*3/uL Low [facility] Lymphocytes/100 WBC (Bld) 19.1 % [facility] MCH (RBC) [Entitic mass] 30.8 pg 26.0 - 34.0 pg [facility] MCHC (RBC) [Mass/Vol] 33.1 g/dL 30.5 - 36.0 g/dL [facility] MCV (RBC) [Entitic vol] 93.2 fL 80.0 - 100.0 fL [facility] Monocytes (Bld) [#/Vol] 0.33 10*3/uL [facility] Monocytes/100 WBC (Bld) 6.6 % [facility] Neutrophils (Bld) [#/Vol] 3.46 10*3/uL [facility] Neutrophils/100 WBC (Bld) 69.7 % [facility] Nucleated RBC (Bld) [#/Vol] [facility] Nucleated RBC/100 WBC (Bld) [Ratio] 0.0 % /100 WBC [facility] Platelet mean volume (Bld) [Entitic vol] 9.8 fL 9.0 - 12.7 fL [facility] Platelets (Bld) [#/Vol] 220 10*3/uL [facility] RBC (Bld) [#/Vol] 3.83 10*6/uL Low 3.90 - 5.2 0 m/uL [facility] WBC (Bld) [#/Vol] 4.97 10*3/uL [facility] Comprehensive metabolic 2000 panelOrdered By: Samia Mendes on 12-27-2023 Albumin [Mass/Vol] 4.4 g/dL 3.9 - 4.9 g/dL [facility] ALP [Catalytic activity/Vol] 52 U/L 34 - 123 U/L [facility] ALT [Catalytic activity/Vol] 8 U/L 7 - 38 U/L [facility] Center Anion gap [Moles/Vol] 11 mmol/L 8 - 15 mmol/L [facility] AST [Catalytic activity/Vol] 16 U/L 13 - 35 U/L [facility] Bilirubin [Mass/Vol] 0.3 mg/dL 0.2 - 1 .3 mg/dL [facility] Calcium [Mass/Vol] 9.8 mg/dL 8.5 - 10. 2 mg/dL [facility] Chloride [Moles/Vol] 106 mmol/L 98 - 10 7 mmol/L [facility] CO2 [Moles/Vol] 21 mmol/L Low 22 - 30 mmol/L [facility] Creatinine [Mass/Vol] 1.19 mg/dL High 0.58 - 0.96 mg/dL [facility] GFR/1.73 sq M.predicted among non-blacks MDRD (S/P/Bld) [Vol rate/Area] 53 mL/min/{1.73_m2} Low - PINF [facility] Comment on above: Estimated Glomerular Filtration Rate (eGFR) is calculated using the 2020 CKD-EPI creatinine equation. This equation utilizes serum creatinine, sex, and age as parameters. The creatinine assay has traceable calibration to isotope dilution-mass spectrometry. Refer to KDIGO guidelines for clinical interpretation. In patients with unstable renal function, e.g. those with acute kidney injury, the eGFR may not accurately reflect actual GFR. Glucose [Mass/Vol] 99 mg/dL 74 - 99 mg/dL [facility] Comment on above: The [place] [employer] (ADA) provides guidance for cutoff values for fasting glucose and random glucose. The ADA defines fasting as no caloric intake for at least 8 hours. Fasting plasma glucose results between 100 to 125 mg/dL indicate increased risk for diabetes (prediabetes). Fasting plasma glucose results greater than or equal to 126 mg/dL meet the criteria for diagnosis of diabetes. In the absence of unequivocal hyperglycemia, results should be confirmed by repeat testing. In a patient with classic symptoms of hyperglycemia or hyperglycemic crisis, random plasma glucose results greater than or equal to 200 mg/dL meet the criteria for diagnosis of diabetes. Reference: Standards of Medical Care in Diabetes 2016, [place] [employer]. Diabetes Care. 2016.39(Suppl 1). Interpretation and review of laboratory results Abnormal [facility] Potassium [Moles/Vol] 3.9 mmol/L 3.7 - 5.1 mmol/L [facility] Protein [Mass/Vol] 7.2 g/dL 6.3 - 8.0 g/dL [facility] Sodium [Moles/Vol] 138 mmol/L 136 - 144 mmol/L [facility] Urea nitrogen [Mass/Vol] 20 mg/dL 7 - 21 mg/dL [facility] MAGNESIUMon 12-27-2023 Magnesium [Mass/Vol] 2.3 mg/dL 1.7 - 2 .3 mg/dL [facility] No Panel Informationon 12-26 Interpretation and review of laboratory results Normal [facility] No Panel InformationOrdered By: Samia Mendes on 12-27-2023 [facility] PHOSPHORUS INORGANICon 12-26 Phosphate [Mass/Vol] 3.6 mg/dL 2.7 - 4 .8 mg/dL [facility] CT Abdomen and Pelvis W cont rast Marija 11-22-2023 IMPRESSION: 1. No new or enlarging mass or lymphadenopathy in the abdomen or pelvis. 2. Stable findings include: Few stable subcentimeter hypodense too small to characterize hepatic lesions, stable portacaval lymph node, stable left renal scarring and left renal cyst. Countersinker Balance Screw Hole: PSCB Transcribe Date/Time: Nov 22 2023 11:38A Dictated by : CARL CUMMINGS MD This examination was interpreted and the report reviewed and electronically signed by: CARL CUMMINGS MD on Nov 22 2023 11:43AM [facility] DIVISION OF RADIOLOGY * * *Final Report* * * DATE OF EXAM: Nov 22 2023 11:34AM [facility] 0530 - CT ABD/PEL W IVCON / PROCEDURE REASON: multiple diagnoses * * * * Physician Interpretation * * * * EXAMINATION: CT ABDOMEN AND PELVIS WITH IV CONTRAST CLINICAL HISTORY: Metastatic small cell lung cancer presenting for follow-up evaluation. TECHNIQUE: CT of the abdomen and pelvis was performed using standard technique, scanning from just above the dome of the diaphragm to the symphysis pubis. MQ: CTAP_3 Contrast: IV: 100 ml of Omnipaque 300 Oral: 12 ml of Omni 240 10-25ml diluted with water CT Radiation dose: Integrated Dose-length product (DLP) for this visit = 703 mGy*cm. CT Dose Reduction Employed: Automated exposure control(AEC) and iterative recon COMPARISON: None. RESULT: Liver: Few stable subcentimeter hypodense too small to characterize hepatic lesions. No new or enlarging hepatic mass. Biliary: No bile duct dilation. Gallbladder present without evidence of radiopaque stones or wall thickening. Spleen: No mass. No splenomegaly. Pancreas: No mass or duct dilation. Adrenals: No mass. Kidneys: Stable scarring in the left kidney upper and lower pole. 1.1 cm left renal lower pole cyst. No hydronephrosis. GI tract: Miniscule hiatal hernia. No dilation or wall thickening. Lymph nodes: Stable 1.1 cm portacaval lymph node. No new or enlarging lymphadenopathy in the abdomen or pelvis. Mesentery/Peritoneum: No ascites or mass. Retroperitoneum: No mass. Vasculature: Atherosclerotic calcification of the vasculature. Pelvis: No mass, ascites or fluid collection. Bones/Soft Tissues: Mild degenerative changes. No CT evidence of destructive osseous lesion. Lower thorax: A chest CT performed will be reported separately. Localizer images: No additional findings. DIVISION OF RADIOLOGY Provider, [facility] - 11/22/2023 * * *Final Report* * * DATE OF EXAM: Nov 22 2023 11:34AM [facility] 0530 - CT ABD/PEL W IVCON / PROCEDURE REASON: multiple diagnoses * * * * Physician Interpretation * * * * EXAMINATION: CT ABDOMEN AND PELVIS WITH IV CONTRAST CLINICAL HISTORY: Metastatic small cell lung cancer presenting for follow-up evaluation. TECHNIQUE: CT of the abdomen and pelvis was performed using standard technique, scanning from just above the dome of the diaphragm to the symphysis pubis. MQ: CTAP_3 Contrast: IV: 100 ml of Omnipaque 300 Oral: 12 ml of Omni 240 10-25ml diluted with water CT Radiation dose: Integrated Dose-length product (DLP) for this visit = 703 mGy*cm. CT Dose Reduction Employed: Automated exposure control(AEC) and iterative recon COMPARISON: None. RESULT: Liver: Few stable subcentimeter hypodense too small to characterize hepatic lesions. No new or enlarging hepatic mass. Biliary: No bile duct dilation. Gallbladder present without evidence of radiopaque stones or wall thickening. Spleen: No mass. No splenomegaly. Pancreas: No mass or duct dilation. Adrenals: No mass. Kidneys: Stable scarring in the left kidney upper and lower pole. 1.1 cm left renal lower pole cyst. No hydronephrosis. GI tract: Miniscule hiatal hernia. No dilation or wall thickening. Lymph nodes: Stable 1.1 cm portacaval lymph node. No new or enlarging lymphadenopathy in the abdomen or pelvis. Mesentery/Peritoneum: No ascites or mass. Retroperitoneum: No mass. Vasculature: Atherosclerotic calcification of the vasculature. Pelvis: No mass, ascites or fluid collection. Bones/Soft Tissues: Mild degenerative changes. No CT evidence of destructive osseous lesion. Lower thorax: A chest CT performed will be reported separately. Localizer images: No additional findings. IMPRESSION IMPRESSION: 1. No new or enlarging mass or lymphadenopathy in the abdomen or pelvis. 2. Stable findings include: Few stable subcentimeter hypodense too small to characterize hepatic lesions, stable portacaval lymph node, stable left renal scarring and left renal cyst. Countersinker Balance Screw Hole: KACIE Transcribe Date/Time: Nov 22 2023 11:38A Dictated by : CARL CUMMINGS MD This examination was interpreted and the report reviewed and electronically signed by: CARL CUMMINGS MD on Nov 22 2023 11:43AM EST [facility] CT Chest W contrast Marija IMPRESSION: 1. Continued interval decrease in size of mild mediastinal and right supraclavicular lymphadenopathy. No new or enlarging intrathoracic lymphadenopathy. 2. Mild emphysema. 3.Interval development of groundglass and mild bandlike opacities in the right paramediastinal/right perihilar regions. Findings may be related to postradiation treatment-related changes and/or infectious/inflammatory process for which clinical correlation is requested. Attention on follow-up is advised. Countersinker Balance Screw Hole: KACIE Transcribe Date/Time: Nov 22 2023 11:43A Dictated by : CARL CUMMINGS MD This examination was interpreted and the report reviewed and electronically signed by: CARL CUMMINGS MD on Nov 22 2023 11:59AM [facility] DIVISION OF RADIOLOGY * * *Final Report* * * DATE OF EXAM: Nov 22 2023 11:34AM [facility] 0539 - CT CHEST W IVCON / PROCEDURE REASON: multiple diagnoses * * * * Physician Interpretation * * * * EXAMINATION: CHEST CT WITH CONTRAST CLINICAL HISTORY: Metastatic small cell lung cancer presenting for follow-up evaluation Technique: Spiral CT acquisition of the chest from the thoracic inlet to the upper abdomen following IV contrast. MQ: CTCW_6 Contrast: 100 mL Omnipaque [address] Radiation dose: Integrated Dose-length product (DLP) for this visit = 703 mGy*cm CT Dose Reduction Employed: Automated exposure control(AEC) and iterative recon Comparison: CT chest dated September 14, 2023 RESULT: Limitations: None. Lines, tubes, and devices: None. Lung parenchyma and airways: Mild upper lung zone predominant centrilobular emphysema. Interval development of groundglass and mild bandlike opacities in the right paramediastinal/right perihilar regions. Pleural space: No pleural effusion. No pleural thickening. Lower neck, lymph nodes, and mediastinum: The imaged thyroid gland contains a subcentimeter isthmic nodule. Interval decrease in size of a right supraclavicular lymph node currently measuring 0.7 x 1.4 cm (8, 2), previously 1.1 x 1.9 cm. Continued interval decrease in mediastinal lymphadenopathy. No new or enlarging intrathoracic lymphadenopathy identified. Heart, pericardium, and thoracic vessels: The thoracic aorta and main pulmonary artery are normal in caliber. The cardiac chambers are normal in size. No coronary artery atherosclerotic calcifications are noted, although the study is not optimized for coronary assessment. Small volume pericardial fluid.. Bones and soft tissues: Degenerative changes. No CT evidence of destructive osseous lesion. Upper abdomen: See separate dictation of concurrently performed CT abdomen which is reported under separate cover. Localizer images: No additional findings. DIVISION OF RADIOLOGY Provider, [facility] - 11/22/2023 * * *Final Report* * * DATE OF EXAM: Nov 22 2023 11:34AM [facility] 0539 - CT CHEST W IVCON / PROCEDURE REASON: multiple diagnoses * * * * Physician Interpretation * * * * EXAMINATION: CHEST CT WITH CONTRAST CLINICAL HISTORY: Metastatic small cell lung cancer presenting for follow-up evaluation Technique: Spiral CT acquisition of the chest from the thoracic inlet to the upper abdomen following IV contrast. MQ: CTCW_6 Contrast: 100 mL Omnipaque [address] Radiation dose: Integrated Dose-length product (DLP) for this visit = 703 mGy*cm CT Dose Reduction Employed: Automated exposure control(AEC) and iterative recon Comparison: CT chest dated September 14, 2023 RESULT: Limitations: None. Lines, tubes, and devices: None. Lung parenchyma and airways: Mild upper lung zone predominant centrilobular emphysema. Interval development of groundglass and mild bandlike opacities in the right paramediastinal/right perihilar regions. Pleural space: No pleural effusion. No pleural thickening. Lower neck, lymph nodes, and mediastinum: The imaged thyroid gland contains a subcentimeter isthmic nodule. Interval decrease in size of a right supraclavicular lymph node currently measuring 0.7 x 1.4 cm (8, 2), previously 1.1 x 1.9 cm. Continued interval decrease in mediastinal lymphadenopathy. No new or enlarging intrathoracic lymphadenopathy identified. Heart, pericardium, and thoracic vessels: The thoracic aorta and main pulmonary artery are normal in caliber. The cardiac chambers are normal in size. No coronary artery atherosclerotic calcifications are noted, although the study is not optimized for coronary assessment. Small volume pericardial fluid.. Bones and soft tissues: Degenerative changes. No CT evidence of destructive osseous lesion. Upper abdomen: See separate dictation of concurrently performed CT abdomen which is reported under separate cover. Localizer images: No additional findings. IMPRESSION IMPRESSION: 1. Continued interval decrease in size of mild mediastinal and right supraclavicular lymphadenopathy. No new or enlarging intrathoracic lymphadenopathy. 2. Mild emphysema. 3.Interval development of groundglass and mild bandlike opacities in the right paramediastinal/right perihilar regions. Findings may be related to postradiation treatment-related changes and/or infectious/inflammatory process for which clinical correlation is requested. Attention on follow-up is advised. Countersinker Balance Screw Hole: KACIE Transcribe Date/Time: Nov 22 2023 11:43A Dictated by : CARL CUMMINGS MD This examination was interpreted and the report reviewed and electronically signed by: CARL CUMMINGS MD on Nov 22 2023 11:59AM EST [facility] CT Chest W contrast IVOrdere d By: [facility] Provider on 11-22-[address] [facility] [address] Neck W contrast Marija 11-01 IMPRESSION: Continued decrease in volume of bouchra metastatic disease involving the medial right supraclavicular region/right level 4 internal jugular chain with no new or enlarging bouchra metastases identified in the neck. 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 Contrast: Omnipaque 300. Contrast Dose: [address] Radiation dose: Integrated Dose-length product (DLP) for this visit = 612 mGy*cm. CT Dose Reduction Employed: Automated exposure control(AEC) and iterative recon COMPARISON: CT of the neck 09/14/2023 RESULT: Postoperative Change: None apparent. Aerodigestive tract: Normal. Major salivary glands: Normal. Thyroid gland: Subcentimeter hypoattenuating nodule is present within the right aspect of the thyroid isthmus. Lymph Nodes: Continued decrease in volume of bouchra metastatic disease involving the medial right supraclavicular region/right level 4 internal jugular chain with no new or enlarging bouchra metastases identified in the neck. Carotid/Parapharyngeal/Re tropharyngeal Spaces:Patent extracranial carotid systems and internal jugular veins bilaterally. Mild atherosclerotic plaque is present along the bilateral carotid bifurcations. Orbits, Face and Skull Base: Visualized paranasal sinuses are clear. Otherwise normal. Imaged intracranial contents: No intracranial mass effect or hydrocephalus. No abnormal intracranial enhancement. Cervical spine and remaining osseous structures: No discrete osteolytic or osteoblastic process. Chronic postsurgical changes of C5-C6 ACDF with plate and screw fixation and interbody grafting. No substantial canal stenosis. Upper chest: Fully characterized on dedicated chest CT performed the same day. DIVISION OF RADIOLOGY Provider, 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 Contrast: Omnipaque 300. Contrast Dose: [address] Radiation dose: Integrated Dose-length product (DLP) for this visit = 612 mGy*cm. CT Dose Reduction Employed: Automated exposure control(AEC) and iterative recon COMPARISON: CT of the neck 09/14/2023 RESULT: Postoperative Change: None apparent. Aerodigestive tract: Normal. Major salivary glands: Normal. Thyroid gland: Subcentimeter hypoattenuating nodule is present within the right aspect of the thyroid isthmus. Lymph Nodes: Continued decrease in volume of bouchra metastatic disease involving the medial right supraclavicular region/right level 4 internal jugular chain with no new or enlarging bouchra metastases identified in the neck. Carotid/Parapharyngeal/Re tropharyngeal Spaces:Patent extracranial carotid systems and internal jugular veins bilaterally. Mild atherosclerotic plaque is present along the bilateral carotid bifurcations. Orbits, Face and Skull Base: Visualized paranasal sinuses are clear. Otherwise normal. Imaged intracranial contents: No intracranial mass effect or hydrocephalus. No abnormal intracranial enhancement. Cervical spine and remaining osseous structures: No discrete osteolytic or osteoblastic process. Chronic postsurgical changes of C5-C6 ACDF with plate and screw fixation and interbody grafting. No substantial canal stenosis. Upper chest: Fully characterized on dedicated chest CT performed the same day. IMPRESSION IMPRESSION: Continued decrease in volume of bouchra metastatic disease involving the medial right supraclavicular region/right level 4 internal jugular chain with no new or enlarging bouchra metastases identified in the neck. Countersinker Balance Screw Hole: KACIE Transcribe Date/Time: Nov 22 2023 11:38A Dictated by : SHOLA COHEN MD This examination was interpreted and the report reviewed and electronically signed by: SHOLA COHEN MD on Nov 22 2023 11:45AM EST [facility] No Panel Informationon 11-21 Radiology Study observation (narrative) [facility] CT Neck W contrast Marija 08-31 [facility] MR Brain WO and W contrast I Von 09-14-2023 [facility] NM PET/CT SKULL-THIGH INITIA Jesus 06-05-2023 [facility] CBC W Auto Differential pane l (Bld)on 06-01-2023 Basophils (Bld) [#/Vol] 0.03 10*3/uL <0.11 k/uL [facility] Basophils/100 WBC (Bld) 0.5 % [facility] Differential cell count method Nom (Bld) Auto [facility] Eosinophils (Bld) [#/Vol] 0.15 10*3/uL <0.46 k/uL [facility] Eosinophils/100 WBC (Bld) 2.4 % [facility] Erythrocyte distribution width (RBC) [Ratio] 12.2 % 11.5 - 15.0 % [facility] Hematocrit (Bld) [Volume fraction] 39.4 % 36.0 - 46.0 % [facility] Hemoglobin (Bld) [Mass/Vol] 12.8 g/dL 11.5 - 15.5 g/dL [facility] Immature granulocytes (Bld) [#/Vol] <0.10 k/uL [facility] Immature granulocytes/100 WBC (Bld) 0.3 % [facility] Lymphocytes (Bld) [#/Vol] 2.45 10*3/uL 1.00 - 4.00 k/uL [facility] Lymphocytes/100 WBC (Bld) 39.8 % [facility] MCH (RBC) [Entitic mass] 29.4 pg 26.0 - 34.0 pg [facility] MCHC (RBC) [Mass/Vol] 32.5 g/dL 30.5 - 36.0 g/dL [facility] MCV (RBC) [Entitic vol] 90.4 fL 80.0 - 100.0 fL [facility] Monocytes (Bld) [#/Vol] 0.48 10*3/uL <0.87 k/uL [facility] Monocytes/100 WBC (Bld) 7.8 % [facility] Neutrophils (Bld) [#/Vol] 3.03 10*3/uL 1.45 - 7.50 k/uL [facility] Neutrophils/100 WBC (Bld) 49.2 % [facility] Nucleated RBC (Bld) [#/Vol] <0.01 k/uL [facility] Nucleated RBC/100 WBC (Bld) [Ratio] 0.0 /100 WBC [facility] Platelet mean volume (Bld) [Entitic vol] 9.7 fL 9.0 - 12.7 fL [facility] Platelets (Bld) [#/Vol] 251 10*3/uL 150 - 400 k/uL [facility] RBC (Bld) [#/Vol] 4.36 10*6/uL 3.90 - 5.2 0 m/uL [facility] WBC (Bld) [#/Vol] 6.16 10*3/uL 3.70 - 11. 00 k/uL [facility] Comprehensive metabolic 2000 panelon 06-01-2023 Albumin [Mass/Vol] 4.7 g/dL 3.9 - 4.9 g/dL [facility] ALP [Catalytic activity/Vol] 60 U/L 34 - 123 U/L [facility] ALT [Catalytic activity/Vol] 14 U/L 7 - 38 U/L [facility] Anion gap [Moles/Vol] 9 mmol/L 9 - 18 mmol/L [facility] AST [Catalytic activity/Vol] 21 U/L 13 - 35 U/L [facility] Bilirubin [Mass/Vol] 0.5 mg/dL 0.2 - 1 .3 mg/dL [facility] Calcium [Mass/Vol] 9.5 mg/dL 8.5 - 10. 2 mg/dL [facility] Chloride [Moles/Vol] 104 mmol/L 97 - 10 5 mmol/L [facility] CO2 [Moles/Vol] 26 mmol/L 22 - 30 mmol/L [facility] Creatinine [Mass/Vol] 0.90 mg/dL 0.58 - 0.96 mg/dL [facility] Estimated Glomerular Filtration Rate 74 mL/min/1.73m >=60 mL/min/1.73m [facility] Glucose [Mass/Vol] 98 mg/dL 74 - 99 mg/dL [facility] Potassium [Moles/Vol] 3.9 mmol/L 3.7 - 5.1 mmol/L [facility] Protein [Mass/Vol] 7.4 g/dL 6.3 - 8.0 g/dL [facility] Sodium [Moles/Vol] 139 mmol/L 136 - 144 mmol/L [facility] Urea nitrogen [Mass/Vol] 13 mg/dL 7 - 21 mg/dL [facility] LD LACTATE DEHYDROon 023 LDH [Catalytic activity/Vol] 236 U/L High 135 - 214 U/L [facility] MAGNESIUM BLDon 06-01-2023 Magnesium [Mass/Vol] 2.4 mg/dL High 1.7 - 2 .3 mg/dL [facility] No Panel Informationon 06-01 [facility] URIC ACID BLOODon 06-01-2023 Urate [Mass/Vol] 3.6 mg/dL 2.5 - 6.6 mg/dL [facility] CT NECK W/CONTRASTon 023 CT NECK W/CONTRAST [place] [address] Patient: KELLIE KANG I. Phone#: : 1965 Age: 58 Gender: F Pt. Type: Out Account: [id number] Location: Ordering: CHINY[facility] LARA Exam Date: 05/12/2023/10:54 Family Phys: Charge Code: [id number] Physician: Kay Order #: [id number] Dose#: 5.2 mGy PROCEDURE: CT NECK WITH CONTRAST COMPARISON: None. INDICATIONS: Neck mass. TECHNIQUE: After obtaining the patient's consent, CT images were created with non-ionic intravenous contrast material. All CT scans at this facility use dose modulation, iterative reconstruction, and/or weight based dosing when appropriate to reduce radiation dose to as low as reasonably achievable. IV CONTRAST: Omnipaque 350,80ml TOTAL DOSE: 5.2 CTDIvol(mGy) FINDINGS: NASOPHARYNX: Normal. Fossae of Rosenmuller and torus tubarius are symmetric. ORAL CAVITY: Normal. No visible mass. OROPHARYNX: Normal. Faucial and lingual tonsils are symmetric. HYPOPHARYNX: Normal. No mass or other visible lesion. LARYNX: Normal. The vocal cords are symmetric and without mass. SINUSES: Rightward nasal septal deviation and nasal septal spur. NECK GLANDS: There is a nodule in the thyroid, on the right measuring 0.9 x 0.6 cm. There is heterogeneity versus a 2nd nodule in the left thyroid, series 4, image 24. LYMPH NODES: Right supraclavicular adenopathy, level IVB, measuring 4.1 x 2.0 cm, series 4 image 26. There is mass effect and moderate narrowing of the right jugular vein, series 2, image 68. There is an adjacent enlarged lymph node measuring 1.3 x 1.6 cm. Brachial enlarged lymph nodes measuring 1.3 x 1.3 cm, series 2, image 85 SKULL BASE: Normal. Foramina are symmetric without bony erosion. VASCULATURE: Normal. Limited views are unremarkable. BONES: Anterior cervical fusion hardware and discectomy changes at C5-6. OTHER: There are emphysematous changes in the lung apices CONCLUSION: 1. Supraclavicular and mediastinal adenopathy. Recommend malignancy work up. 2. Right thyroid nodule, consider dedicated thyroid ultrasound further characterization. [place] [address] Patient: KELLIE KANG I. Phone#: : 1965 Age: 58 Gender: F Pt. Type: Out Account: [id number] Location: Ordering: [facility] LARA Exam Date: 05/12/2023/10:54 Family Phys: Charge Code: [id number] Physician: Kay Order #: [id number] Dose#: 5.2 mGy Dictated by: Joana Triplett MD on 05/12/2023 at 18:14 Approved by: Joana Triplett MD on 05/12/2023 at 18:31 Normal [facility] ABDOMEN 2 VIEWSon 09-13-2022 ABDOMEN [address] [address] Patient: KELLIE KANG I. Phone#: : 1965 Age: 57 Gender: F Pt. Type: Out Account: [id number] Location: Ordering: [facility] Exam Date: 09/13/2022/15:15 Family Phys: Charge Code: [id number] Physician: Kay Order #: [id number] Dose#: PROCEDURE: ABDOMEN 2 VIEWS COMPARISON: None. INDICATIONS: Stool incontinence. FINDINGS: BOWEL GAS PATTERN: Normal. No abnormal dilation or deviation. Air is seen within small and large bowel. There is moderate stool burden throughout the colon. Stool is present in the rectum. CALCIFICATIONS: None significant. OTHER: Liver shadow measures 21.5 cm. There is bony demineralization. CONCLUSION: 1. Hepatomegaly 2. Bony demineralization. 3. Moderate stool burden Dictated by: Joana Triplett MD on 09/13/2022 at 15:48 Approved by: Joana Triplett MD on 09/13/2022 at 15:50 Normal [facility] LUMBO SACRAL COMPLETE MIN 4 VIEWSon 09-13-2022 LUMBO SACRAL COMPLETE MIN 4 VIEWS [place] [id number] Patient: KELLIE KANG I. Phone#: : 1965 Age: 57 Gender: F Pt. Type: Out Account: [id number] Location: Ordering: [facility] Exam Date: 09/13/2022/15:09 Family Phys: Charge Code: [id number] Physician: Kay Order #: [id number] Dose#: PROCEDURE: X-RAY LUMBAR SPINE COMPLETE MIN 4 VIEWS COMPARISON: [facility], CT, ABDOMEN/PELVIS W CON, 11/01/2016, 9:27. INDICATIONS: Stool incontinence. FINDINGS: BONES: Irregularity of the cortex of the anterior mid and distal sacrum Vertebral bodies are maintained in height and alignment. Straightening of the normal lumbar lordosis, this may be positional or due to muscle spasm. DISC SPACES: Disc height loss at T11-12 and L1-2. PARASPINOUS: Negative. No paraspinous abnormality is seen. OTHER: There are atherosclerotic calcifications of the aorta. CONCLUSION: 1. Irregularity of the cortex of the mid and distal sacrum, correlate with trauma history. Consider CT if clinically indicated. 2. Disc height loss in the lower thoracic and upper lumbar spine. Dictated by: Joana Triplett MD on 09/13/2022 at 15:40 Approved by: Joana Triplett MD on 09/13/2022 at 15:47 Normal [facility] CBC (INCLUDES DIFF/PLT)on Basophils (Bld) [#/Vol] 0.091 10*3/uL Normal 0-200 [facility] Comment on above: Performed By: #### 1 0231, 6399 #### [facility] [place] [address] Director Of Physical Therapy: Christophe Graves MD Basophils/100 WBC (Bld) 1.3 % Normal [facility] Comment on above: Performed By: #### 1 0231, 6399 #### [facility] [place] [address] Director Of Physical Therapy: Christophe Graves MD Eosinophils (Bld) [#/Vol] 0.161 10*3/uL Normal 15-500 [facility] Comment on above: Performed By: #### 1 0231, 6399 #### [facility] [place] [address] Director Of Physical Therapy: Christophe Graves MD Eosinophils/100 WBC (Bld) 2.3 % Normal [facility] Comment on above: Performed By: #### 1 0231, 6399 #### [facility] [place] [address] Director Of Physical Therapy: Christophe Graves MD Erythrocyte distribution width (RBC) [Ratio] 11.9 % Normal 11.0-15.0 [facility] Comment on above: Performed By: #### 1 0231, 6399 #### [facility] of [place] [address] Director Of Physical Therapy: Christophe Graves MD Hematocrit (Bld) [Volume fraction] 38.4 % Normal 35.0-45.0 [facility] Comment on above: Performed By: #### 1 0231, 6399 #### [facility] of [place] [address] Director Of Physical Therapy: Christophe Graves MD Hemoglobin (Bld) [Mass/Vol] 12.8 g/dL Normal 11.7-15.5 [facility] Comment on above: Performed By: #### 1 0231, 6399 #### [facility] [place] [address] Director Of Physical Therapy: Christophe Graves MD Lymphocytes (Bld) [#/Vol] 2.142 10*3/uL Normal 850-3900 [facility] Comment on above: Performed By: #### 1 023, 6399 #### [facility] of [place] [address] Director Of Physical Therapy: Christophe Graves MD Lymphocytes/100 WBC (Bld) 30.6 % Normal [facility] Comment on above: Performed By: #### 1 023, 6399 #### [facility] of [place] [address] Director Of Physical Therapy: Christophe Graves MD MCH (RBC) [Entitic mass] 30.1 pg Normal 27.0-33.0 [facility] Comment on above: Performed By: #### 1 0231, 6399 #### [facility] of [place] [address] Director Of Physical Therapy: Christophe Graves MD MCHC (RBC) [Mass/Vol] 33.3 g/dL Normal 32.0-36.[address] [facility] Comment on above: Performed By: #### 1 0231, 6399 #### [facility] of [place] [address] Director Of Physical Therapy: Christophe Graves MD MCV (RBC) [Entitic vol] 90.4 fL Normal 80.0-100.0 [facility] Comment on above: Performed By: #### 1 0231, 6399 #### [facility] of [place] [address] Director Of Physical Therapy: Christophe Graves MD Monocytes (Bld) [#/Vol] 0.483 10*3/uL Normal 200-950 [facility] Comment on above: Performed By: #### 1 0231, 6399 #### [facility] of [place] [address] Director Of Physical Therapy: Christophe Graves MD Monocytes/100 WBC (Bld) 6.9 % Normal [facility] Comment on above: Performed By: #### 1 0231, 6399 #### [facility] of [place] [address] Director Of Physical Therapy: Christophe Graves MD Neutrophils (Bld) [#/Vol] 4.123 10*3/uL Normal 3056-2685 [facility] Comment on above: Performed By: #### 1 0231, 6399 #### [facility] of [place] [address] Director Of Physical Therapy: Christophe Graves MD Neutrophils/100 WBC (Bld) 58.9 % Normal [facility] Comment on above: Performed By: #### 1 0231, 6399 #### [facility] of [place] [address] Director Of Physical Therapy: Christophe Graves MD Platelet mean volume (Bld) [Entitic vol] 10.8 fL Normal 7.5-12.5 [facility] Comment on above: Performed By: #### 1 0231, 6399 #### [facility] of [place] [address] Director Of Physical Therapy: Christophe Graves MD Platelets (Bld) [#/Vol] 246 10*3/uL Normal 140-400 [facility] Comment on above: Performed By: #### 1 0231, 6399 #### [facility] of [address], [address] [place] [address] Director Of Physical Therapy: Christophe Graves MD RBC (Bld) [#/Vol] 4.25 10*6/uL Normal 3.80-5.10 [facility] Comment on above: Performed By: #### 1 0231, 6399 #### [facility] of [address], [address] [place] [address] Director Of Physical Therapy: Christophe Graves MD WBC (Bld) [#/Vol] 7.0 10*3/uL Normal 3.8-10.8 [facility] Comment on above: Performed By: #### 1 0231, 6399 #### [facility] of [address], [address] [place] [address] Director Of Physical Therapy: Christophe Graves MD COMPREHENSIVE METABOLIC PANE [facility] 11-16-2021 Albumin [Mass/Vol] 4.4 g/dL Normal 3.6-5.1 [facility] Comment on above: Order Comment: FASTI NG: UNKNOWN Performed By: #### 1 0231, 6399 #### [facility] of [place] [address] Director Of Physical Therapy: Christophe Graves MD Albumin/Globulin [Mass ratio] 1.8 {ratio} Normal 1.0-2.5 [facility] Comment on above: Order Comment: FASTI NG: UNKNOWN Performed By: #### 1 0231, 6399 #### [facility] of [address], [address] [place] [address] Director Of Physical Therapy: Christophe Graves MD ALP [Catalytic activity/Vol] 60 U/L Normal 37-153 [facility] Comment on above: Order Comment: FASTI NG: UNKNOWN Performed By: #### 1 0231, 6399 #### [facility] of [address], [address] [place] [address] Director Of Physical Therapy: Christophe Graves MD ALT [Catalytic activity/Vol] 10 U/L Normal 6-29 [facility] Comment on above: Order Comment: FASTI NG: UNKNOWN Performed By: #### 1 0231, 6399 #### [facility] [place] [address] Director Of Physical Therapy: Christophe Graves MD AST [Catalytic activity/Vol] 14 U/L Normal 10-35 [facility] Comment on above: Order Comment: FASTI NG: UNKNOWN Performed By: #### 1 0231, 6399 #### [facility] [place] [address] Director Of Physical Therapy: Christophe Graves MD Bilirubin [Mass/Vol] 0.4 mg/dL Normal 0.2-1.2 [facility] Comment on above: Order Comment: FASTI NG: UNKNOWN Performed By: #### 1 0231, 6399 #### [facility] [place] [address] Director Of Physical Therapy: Christophe Graves MD BUN/CREATININE RATIO NOT APPLICABLE Normal 6-22 [facility] Comment on above: Order Comment: FASTI NG: UNKNOWN Performed By: #### 1 0231, 6399 #### [facility] [place] [address] Director Of Physical Therapy: Christophe Graves MD Calcium [Mass/Vol] 9.4 mg/dL Normal 8.6-10.4 [facility] Comment on above: Order Comment: FASTI NG: UNKNOWN Performed By: #### 1 0231, 6399 #### [facility] [place] [address] Director Of Physical Therapy: Christophe Graves MD Chloride [Moles/Vol] 109 mmol/L Normal 98-110 [facility] Comment on above: Order Comment: FASTI NG: UNKNOWN Performed By: #### 1 0231, 6399 #### [facility] [place] [address] Director Of Physical Therapy: Christophe Graves MD CO2 [Moles/Vol] 21 mmol/L Normal 20-32 [facility] Comment on above: Order Comment: FASTI NG: UNKNOWN Performed By: #### 1 0231, 6399 #### [facility] [address], [address] [place] [address] Director Of Physical Therapy: Christophe Graves MD Creatinine [Mass/Vol] 0.89 mg/dL Normal 0.50-1.05 [facility] Comment on above: Order Comment: FASTI NG: UNKNOWN Result Comment: For patients >49 years of age, the reference limit for Creatinine is approximately 13% higher for people identified as -[place]. Performed By: #### 1 0231, 6399 #### [facility] [address], [address] [place] [address] Director Of Physical Therapy: Christophe Graves MD eGFR NON-AFR. MICRONESIAN 72 mL/min/1.73m2 Normal > OR = 60 [facility] Comment on above: Order Comment: FASTI NG: UNKNOWN Performed By: #### 1 0231, 6399 #### [facility] [address], [address] [place] [address] Director Of Physical Therapy: Christophe Graves MD GFR/1.73 sq M.predicted among blacks MDRD (S/P/Bld) [Vol rate/Area] 84 mL/min/{1.73_m2} Normal > OR = 60 [facility] Comment on above: Order Comment: FASTI NG: UNKNOWN Performed By: #### 1 0231, 6399 #### [facility] [address], [address] [place] [address] Director Of Physical Therapy: Christophe Graves MD Globulin (S) [Mass/Vol] 2.4 g/dL Normal 1.9-3.7 [facility] Comment on above: Order Comment: FASTI NG: UNKNOWN Performed By: #### 1 0231, 6399 #### [facility] [place] [address] Director Of Physical Therapy: Christophe Graves MD Glucose [Mass/Vol] 92 mg/dL Normal 65-99 [facility] Comment on above: Order Comment: FASTI NG: UNKNOWN Result Comment: Fasting reference interval Performed By: #### 1 0231, 6399 #### [facility] [address], [address] [place] [address] Director Of Physical Therapy: Christophe Graves MD Potassium [Moles/Vol] 3.8 mmol/L Normal 3.5-5.3 [facility] Comment on above: Order Comment: FASTI NG: UNKNOWN Performed By: #### 1 0231, 6399 #### [facility] of [address], [address] [place] [address] Director Of Physical Therapy: Christophe Graves MD Protein [Mass/Vol] 6.8 g/dL Normal 6.1-8.1 [facility] Comment on above: Order Comment: FASTI NG: UNKNOWN Performed By: #### 1 0231, 6399 #### [facility] [place] [address] Director Of Physical Therapy: Christophe Graves MD Sodium [Moles/Vol] 143 mmol/L Normal 135-146 [facility] Comment on above: Order Comment: FASTI NG: UNKNOWN Performed By: #### 1 0231, 6399 #### [facility] [place] [address] Director Of Physical Therapy: Christophe Graves MD Urea nitrogen [Mass/Vol] 15 mg/dL Normal 7-25 [facility] Comment on above: Order Comment: FASTI NG: UNKNOWN Performed By: #### 1 0231, 6399 #### [facility] [place] [address] Director Of Physical Therapy: Christophe Graves MD TSHon 11-16-2021 TSH Qn 1.68 m[IU]/L Normal 0.40-4.50 [facility] Comment on above: Performed By: #### 1 0231, 6399 #### [facility] of [place] [address] Director Of Physical Therapy: Christophe Graves MD Laboratory - Chemistry and C hemistry - challengeon 11-15-2021 Albumin [Mass/Vol] 4.4 g/dL Normal 3.6 - 5.1 g/dL [email or web address], [facility]. Albumin/Globulin [Mass ratio] 1.8 {ratio} Normal 1.0 - 2.5 [facility].; [facility], [facility]. ALP [Catalytic activity/Vol] 60 U/L Normal 37 - 153 U/L [facility].; [facility], [facility]. ALT [Catalytic activity/Vol] 10 U/L Normal 6 - 29 U/L [facility].; [facility], [facility]. AST [Catalytic activity/Vol] 14 U/L Normal 10 - 35 U/L [facility], [facility].; [facility], [facility]. Bilirubin [Mass/Vol] 0.4 mg/dL Normal 0.2 - 1 .2 mg/dL [email or web address].; [facility], [facility]. Calcium [Mass/Vol] 9.4 mg/dL Normal 8.6 - 10. 4 mg/dL [facility], [facility].; [facility], [facility]. Chloride [Moles/Vol] 109 mmol/L Normal 98 - 11 0 mmol/L [facility].; [facility], [facility]. CO2 [Moles/Vol] 21 mmol/L Normal 20 - 32 mmol/L [email or web address].; [facility], [facility]. Creatinine [Mass/Vol] 0.89 mg/dL Normal 0.50 - 1.05 mg/dL [facility], [facility].; [facility], [facility]. GFR/1.73 sq M.predicted among blacks MDRD (S/P/Bld) [Vol rate/Area] 84 mL/min/{1.73_m2} Normal [email or web address].; [facility], [facility]. Glucose [Mass/Vol] 92 mg/dL Normal 65 - 99 mg/dL [facility], [facility].; [facility], [facility]. Potassium [Moles/Vol] 3.8 mmol/L Normal 3.5 - 5.3 mmol/L [facility], [facility].; [facility], [facility]. Protein [Mass/Vol] 6.8 g/dL Normal 6.1 - 8.1 g/dL [email or web address].; [facility], [employer]. Sodium [Moles/Vol] 143 mmol/L Normal 135 - 146 mmol/L [email or web address].; [place] [employer] [facility] TSH Qn 1.68 m[IU]/L Normal 0.40 - 4.50 {mIU/L} [facility].; [place] [employer] [facility] Urea nitrogen [Mass/Vol] 15 mg/dL Normal 7 - 25 mg/dL [facility].; [place] [employer] [facility] Laboratory - Hematology and Cell countson 11-15-2021 Basophils (Bld) [#/Vol] 0.091 10*3/uL Normal 0 - 200 {cells/uL} [email or web address].; [place] [employer] [facility] Basophils/100 WBC (Bld) 1.3 % Normal [email or web address].; [place] [employer] [facility] Eosinophils (Bld) [#/Vol] 0.161 10*3/uL Normal 15 - 500 {cells/uL} [facility].; [place] [employer] Eosinophils/100 WBC (Bld) 2.3 % Normal [place] [employer] [facility].; [employer] Erythrocyte distribution width (RBC) [Ratio] 11.9 % Normal 11.0 - 15.0 % [place] [employer] [facility].; [place] [employer]. Hematocrit (Bld) [Volume fraction] 38.4 % Normal 35.0 - 45.0 % [place] [employer] [facility].; [employer] [facility] Hemoglobin (Bld) [Mass/Vol] 12.2 g/dL Normal 11.5 - 14.2 g/dL [facility].; [place]. Hemoglobin (Bld) [Mass/Vol] 12.8 g/dL Normal 11.7 - 15.5 g/dL [place] [employer] [facility].; [place] [employer] [facility]. Lymphocytes (Bld) [#/Vol] 2.142 10*3/uL Normal 850 - 3900 {cells/uL} [place] [employer] [facility].; [employer]. [facility] Lymphocytes/100 WBC (Bld) 30.6 % Normal [employer]. [facility].; [employer]. MCH (RBC) [Entitic mass] 30.1 pg Normal 27.0 - 33.0 pg [facility].; [employer], [employer]. MCHC (RBC) [Mass/Vol] 33.3 g/dL Normal 32.0 - 36.0 g/dL [facility].; [place] [employer] MCV (RBC) [Entitic vol] 90.4 fL Normal 80.0 - 100.0 fL [facility], [facility].; [employer], [facility]. Monocytes (Bld) [#/Vol] 0.483 10*3/uL Normal 200 - 950 {cells/uL} [facility].; [place], [employer]. Monocytes/100 WBC (Bld) 6.9 % Normal [place] [employer] [facility].; [place], [employer]. Neutrophils (Bld) [#/Vol] 4.123 10*3/uL Normal 1500 - 7800 {cells/uL} [employer], [facility].; [place], [employer]. Neutrophils/100 WBC (Bld) 58.9 % Normal [employer] [facility].; [facility], [employer]. Platelet mean volume (Bld) [Entitic vol] 10.8 fL Normal 7.5 - 12.5 fL [employer] [facility].; [employer], [employer]. Platelets (Bld) [#/Vol] 246 10*3/uL Normal 140 - 400 [employer].; [facility] RBC (Bld) [#/Vol] 4.25 10*6/uL Normal 3.80 - 5.1 0 {Million/uL} [employer] [facility].; [employer], [employer]. WBC (Bld) [#/Vol] 7.0 10*3/uL Normal 3.8 - 10.8 [employer].; [facility], [employer]. No Panel Informationon 11-15 BUN/CREATININE RATIO NOT APPLICABLE Normal - [employer]. [facility].; [employer] eGFR NON-AFR. MICRONESIAN 72 Normal [employer]. [facility].; [employer], [employer]. GLOBULIN 2.4 Normal 1.9 - 3.7 [employer].; [facility], [employer]. CULTURE, URINE, ROUTINEon CULTURE, URINE, ROUTINE SEE NOTE Normal [facility] Comment on above: Result Comment: CULTURE, URINE, ROUTINE Micro Number: [id number] Test Status: Final Specimen Source: Urine Specimen Quality: Adequate Result: Mixed genital diego isolated. These superficial bacteria are not indicative of a urinary tract infection. No further organism identification is warranted on this specimen. If clinically indicated, recollect clean-catch, mid-stream urine and transfer immediately to Urine Culture Transport Tube. Performed By: #### 3 95 #### [facility] [place] [address] [facility], [address] [place] [address] Director Of Physical Therapy: Christophe Graves MD Laboratory - Chemistry and C hemistry - challengeon 07-21-2021 Bilirubin Ql (U) Negative Normal [employer] Ketones Ql (U) Negative Normal [employer].; [employer], [employer]. pH (U) 5.5 [pH] Normal [employer] Specific gravity (U) [Rel density] 1.025 Normal [employer] Urobilinogen Qn (U) 0.2 mg/dL Normal [employer]. Laboratory - Hematology and Cell countson 07-21-2021 Hemoglobin Ql (U) moderate Abnormal [employer] Laboratory - Specimen inform ationon 07-21-2021 Appearance (U) clear Normal [employer] Color (U) yellow Normal [employer] Laboratory - Urinalysison Glucose Test strip (U) [Mass/Vol] Negative Normal [employer].; [employer] Leukocyte esterase Test strip Ql (U) Negative Normal [employer].; [employer] Nitrite Ql (U) Negative Normal [employer].; [employer], [employer]. Protein Ql (U) Negative Normal [employer].; [employer], [employer]. No Panel Informationon 07-21 CULTURE, URINE, ROUTINE SEE NOTE Normal [employer] CULTURE, URINE, ROUTINEon CULTURE, URINE, ROUTINE SEE NOTE Normal [facility] Comment on above: Result Comment: CULTURE, URINE, ROUTINE Micro Number: [id number] Test Status: Final Specimen Source: Urine Specimen Quality: Adequate Result: Growth of mixed diego was isolated, suggesting probable contamination. No further testing will be performed. If clinically indicated, recollection using a method to minimize contamination, with prompt transfer to Urine Culture Transport Tube, is recommended. Performed By: #### 3 95 #### [facility] [address] [place] [address], [address] [place] [address] Director Of Physical Therapy: Christophe Graves MD Laboratory - Chemistry and C hemistry - challengeon 07-09-2021 Bilirubin Ql (U) Negative Normal [employer] Ketones Ql (U) Negative Normal [employer].; [employer] pH (U) 6.0 [pH] Normal [employer].; [employer] Specific gravity (U) [Rel density] 1.025 Normal [employer]. Urobilinogen Qn (U) 0.2 mg/dL Normal [facility] [employer].; [employer]. Laboratory - Hematology and Cell countson 07-09-2021 Hemoglobin Ql (U) Large Abnormal [employer].; [employer] Laboratory - Specimen inform ationon 07-09-2021 Appearance (U) Clear Normal [employer] Color (U) Yellow Normal [employer].; [employer]. Laboratory - Urinalysison Glucose Test strip (U) [Mass/Vol] Negative Normal [employer].; [employer] Leukocyte esterase Test strip Ql (U) Negative Normal [employer].; [employer], [employer]. Nitrite Ql (U) Negative Normal [employer].; [employer], [employer]. Protein Ql (U) Negative Normal [email or web address].; [email or web address]. No Panel Informationon 07-09 CULTURE, URINE, ROUTINE SEE NOTE Normal [email or web address].; [facility]. SARS CoV 2 RNA(COVID 19), QU ALITATIVE [place] 06-05-2021 SARS CoV 2 RNA Not detected Normal NOT DETECTED [employer] Comment on above: Result Comment: A Not Detected result means that SARS-CoV-2 RNA was not present in the specimen above the limit of detection. A Not Detected result does not rule out the possibility of COVID-19 and should not be used as the sole basis for treatment or patient management decisions. If COVID-19 is still suspected, based on exposure history together with other clinical findings, re-testing should be considered in the context of clinical observations and epidemiological data for patient management decisions. Test Method: Nucleic Acid Amplification Test including reverse screen tender helper polymerase chain reaction (RT-PCR) and screen tender helper mediated amplification (TMA). The test method meets the [place] Centers for Disease Control and prevention (CDC) pre departure and arrival requirement for viral test for COVID-19 dated July 30, 2020. Testing requirements for traveling may change with time. The patient is responsible for determining the test requirements for each nation while they are traveling. This test has been authorized by the FDA under an Emergency Use Authorization (EUA) for use by authorized laboratories. Please review the Fact Sheets and FDA authorized labeling available for health care providers and patients using the following websites: https://www.[employer]com/home/Covid-19/HCP/NAAT/fact-she et2 [email or web address]://www.[employer]com/home/Covid-19/Patients/NAAT/ fact-sheet2 Due to the current public health emergency, [employer] is accepting samples from appropriate clinical sources collected using wide variety of swabs and transport media for COVID-19. Not detected test results derived from specimens received in non- commercially manufactured viral collection kits or those not yet authorized by FDA for COVID-19 testing should be cautiously evaluated and take extra precautions such as additional clinical monitoring, including collection of an additional specimen. Additional information about COVID-19 can be found at the [employer] website: [email or web address].[email or web address]. Performed By: #### [id number] #### [employer] [facility] [address], [address] [place] [address] Director Of Physical Therapy: Christophe Graves MD Laboratory - Microbiology an d Antimicrobial susceptibilityon 06-02-2021 SARS-CoV-2 (COVID-19) RNA SHARRI+probe Ql (Unsp spec) Not detected Normal [facility].; [facility] Hemoglobin A1con 10-07-2020 HbA1c (Bld) [Mass fraction] 5.8 % High 4.3-5.6 [facility] Comment on above: Performed By: #### H BA1C #### [facility] Routine Lab [address] [place], [place] [address] HbA1c (Bld) [Mass fraction] 120 mg/dL Normal [facility] Comment on above: Performed By: #### H BA1C #### [facility] Routine Lab [address] [place] [address] Coronavirus 2019on COVID 19 Result SERVICES MANAGER Normal Negative for COVID19 (SARS CoV2) by PCR. [facility] Comment on above: Result Comment: Nega tive for This test was developed and its performance characteristics determined by [facility] [place]. This test has been authorized by FDA under an Emergency Use Authorization (EUA). This test has been validated in accordance with the FDA's Guidance Document Policy for Diagnostics Testing in Laboratories Certified to Perform High Complexity Testing under CLIA prior to Emergency use Authorization for Coronavirus Disease 2019 during the Public Health Emergency issued on August 31, 2019. COVID19 (SARS This test was developed and its performance characteristics determined by [facility] [place]. This test has been authorized by FDA under an Emergency Use Authorization (EUA). This test has been validated in accordance with the FDA's Guidance Document Policy for Diagnostics Testing in Laboratories Certified to Perform High Complexity Testing under CLIA prior to Emergency use Authorization for Coronavirus Disease 2019 during the Public Health Emergency issued on August 31, 2019. CoV2) by PCR. This test was developed and its performance characteristics determined by [facility] [place]. This test has been authorized by FDA under an Emergency Use Authorization (EUA). This test has been validated in accordance with the FDA's Guidance Document Policy for Diagnostics Testing in Laboratories Certified to Perform High Complexity Testing under CLIA prior to Emergency use Authorization for Coronavirus Disease 2019 during the Public Health Emergency issued on August 31, 2019. COVID 19 Source SERVICES MANAGER Normal [facility] Comment on above: Result Comment: Naso pharyngeal Corrected on 07/18 AT 2253: Previously reported as SERVICES MANAGER SWAB Swab Corrected on 07/18 AT 2253: Previously reported as SERVICES MANAGER SWAB Laboratory - Microbiology an d Antimicrobial susceptibilityon 05-25-2020 SARS-CoV-2 (COVID-19) Ab IA Ql Negative Normal [employer]. Laboratory - Chemistry and C hemistry - challengeon 03-31-2020 Bilirubin Ql (U) Negative Normal [employer].; [employer]. Ketones Ql (U) Negative Normal [employer].; [employer]. pH (U) 6.0 [pH] Normal [employer].; [employer]. Specific gravity (U) [Rel density] 1.025 Normal [employer]; [employer]. Urobilinogen Qn (U) 0.2 mg/dL Normal [facility] [employer]. Laboratory - Hematology and Cell countson 03-31-2020 Hemoglobin Ql (U) Moderate Abnormal [employer].; [employer]. Laboratory - Specimen inform ationon 03-31-2020 Appearance (U) Clear Normal [employer].; [employer]. Color (U) Yellow Normal [employer].; [employer]. Laboratory - Urinalysison Glucose Test strip (U) [Mass/Vol] Negative Normal [employer].; [employer], [employer]. Leukocyte esterase Test strip Ql (U) Negative Normal [employer].; [employer], [employer]. Nitrite Ql (U) Negative Normal [employer].; [employer], [employer]. Protein Ql (U) Negative Normal [facility].; [employer]. No Panel Informationon 03-31 CULTURE, URINE, ROUTINE SEE NOTE Abnormal [place] [employer].; [facility]. Coronavirus 2019on 0 COVID 19 Result SERVICES MANAGER Normal Negative for COVID19 (SARS CoV2) by PCR. [facility] Comment on above: Result Comment: Nega tive for This test was developed and its performance characteristics determined by [facility] [place]. This test has been authorized by FDA under an Emergency Use Authorization (EUA). This test has been validated in accordance with the FDA's Guidance Document Policy for Diagnostics Testing in Laboratories Certified to Perform High Complexity Testing under CLIA prior to Emergency use Authorization for Coronavirus Disease 2019 during the Public Health Emergency issued on August 31, 2019. COVID19 (SARS This test was developed and its performance characteristics determined by [facility] [place]. This test has been authorized by FDA under an Emergency Use Authorization (EUA). This test has been validated in accordance with the FDA's Guidance Document Policy for Diagnostics Testing in Laboratories Certified to Perform High Complexity Testing under CLIA prior to Emergency use Authorization for Coronavirus Disease 2019 during the Public Health Emergency issued on August 31, 2019. CoV2) by PCR. This test was developed and its performance characteristics determined by [facility] [place]. This test has been authorized by FDA under an Emergency Use Authorization (EUA). This test has been validated in accordance with the FDA's Guidance Document Policy for Diagnostics Testing in Laboratories Certified to Perform High Complexity Testing under CLIA prior to Emergency use Authorization for Coronavirus Disease 2019 during the Public Health Emergency issued on August 31, 2019. Coronavirus 2019on 0 COVID 19 Source SERVICES MANAGER Normal [facility] Comment on above: Result Comment: Naso pharyngeal Corrected on 03/09 AT 2144: Previously reported as SERVICES MANAGER SWAB Swab Corrected on 03/09 AT 2144: Previously reported as SERVICES MANAGER SWAB Laboratory - Microbiology an d Antimicrobial susceptibilityon 09-24-2019 FLUAV Ag IA Ql (Throat) Negative Normal [facility].; [facility] [facility]. Laboratory - Chemistry and C hemistry - challengeon 11-23-2018 Albumin [Mass/Vol] 4.7 g/dL Normal 3.6 - 5.1 g/dL [email or web address].; [facility], [facility]. Albumin/Globulin [Mass ratio] 1.9 {ratio} Normal 1.0 - 2.5 [facility], [facility].; [facility], [facility]. ALP [Catalytic activity/Vol] 73 U/L Normal 33 - 130 U/L [email or web address].; [facility], [facility]. ALT [Catalytic activity/Vol] 14 U/L Normal 6 - 29 U/L [email or web address].; [facility], [facility]. AST [Catalytic activity/Vol] 20 U/L Normal 10 - 35 U/L [email or web address].; [facility], [facility]. Bilirubin [Mass/Vol] 0.4 mg/dL Normal 0.2 - 1 .2 mg/dL [email or web address].; [email or web address]. Calcium [Mass/Vol] 9.6 mg/dL Normal 8.6 - 10. 4 mg/dL [email or web address].; [place] [employer] [facility], [facility]. Chloride [Moles/Vol] 109 mmol/L Normal 98 - 11 0 mmol/L [email or web address].; [place] [employer] [facility], [employer]. CO2 [Moles/Vol] 23 mmol/L Normal 20 - 32 mmol/L [facility], [facility].; [place] [employer] [facility], [facility]. Creatinine [Mass/Vol] 0.95 mg/dL Normal 0.50 - 1.05 mg/dL [facility], [facility].; [place] [employer] [facility], [facility]. GFR/1.73 sq M.predicted among blacks MDRD (S/P/Bld) [Vol rate/Area] 79 {ML/MIN/1.73M2} Normal [facility], [facility].; [place] [employer] [facility], [facility]. GFR/1.73 sq M.predicted MDRD (S/P/Bld) [Vol rate/Area] 68 {ML/MIN/1.73M2} Normal [facility], [facility].; [place] [employer] [facility], Inc[facility] Globulin (S) [Mass/Vol] 2.5 g/dL Normal 1.9 - 3.7 g/dL [email or web address].; [place] [employer] [facility], [facility]. Glucose [Mass/Vol] 100 mg/dL Abnormal 65 - 99 mg/dL [email or web address].; [place] [employer] [facility], [facility]. Potassium [Moles/Vol] 4.1 mmol/L Normal 3.5 - 5.3 mmol/L [facility], [facility].; [place] [employer] [facility], [facility]. Protein [Mass/Vol] 7.2 g/dL Normal 6.1 - 8.1 g/dL [email or web address].; [place] [employer] [facility], [facility]. Sodium [Moles/Vol] 139 mmol/L Normal 135 - 146 mmol/L [email or web address].; [place] [employer] [facility], [facility]. Urea nitrogen [Mass/Vol] 17 mg/dL Normal 7 - 25 mg/dL [email or web address].; [place] [employer], [facility]. Urea nitrogen/Creatinine [Mass ratio] 17.8 mg/mg Normal 6 - 22 [email or web address].; [employer], [facility]. Laboratory - Hematology and Cell countson 11-23-2018 Basophils (Bld) [#/Vol] 40 {Cells}/uL Normal 0 - 200 {Cells}/uL [email or web address].; [employer], [facility]. Basophils/100 WBC (Bld) 1 % Normal 0 - 1 % [email or web address].; [place] [employer] [facility], [facility]. Eosinophils (Bld) [#/Vol] 150 {Cells}/uL Normal 15 - 500 {Cells}/uL [email or web address].; [place], [facility]. Eosinophils/100 WBC (Bld) 2 % Normal 0 - 4 % [email or web address].; [employer], [employer]. Erythrocyte distribution width (RBC) [Ratio] 13.3 % Normal 11.0 - 15.0 % [place] [employer] [facility], [facility].; [place] [employer], [employer]. Hematocrit (Bld) [Volume fraction] 40.4 % Normal 35.0 - 45.0 % [place] [employer] [facility], [facility].; [place] [employer] Hemoglobin (Bld) [Mass/Vol] 13.4 g/dL Normal 11.7 - 15.5 g/dL [email or web address].; [employer], [facility]. Lymphocytes (Bld) [#/Vol] 2810 {Cells}/uL Normal 850 - 3900 {Cells}/uL [facility] [employer] [facility].; [employer]. Lymphocytes/100 WBC (Bld) 39 % Normal 12 - 47 % [email or web address].; [facility], Inc. MCH (RBC) [Entitic mass] 30.0 pg Normal 27.0 - 33.0 PG [facility], [facility].; [place] [employer], [employer]. MCHC (RBC) [Mass/Vol] 33.1 g/dL Normal 32.0 - 36.0 g/dL [email or web address].; [employer], [employer]. MCV (RBC) [Entitic vol] 90.7 fL Normal 80.0 - 100.0 fL [email or web address].; [place] [employer] [facility], [facility]. Monocytes (Bld) [#/Vol] 250 {Cells}/uL Normal 200 - 950 {Cells}/uL [facility] [employer], [facility].; [place] [employer], [employer]. Monocytes/100 WBC (Bld) 3 % Abnormal 4 - 12 % [facility] [employer] [facility].; [place], [employer]. Neutrophils (Bld) [#/Vol] 4030 {Cells}/uL Normal 1500 - 7800 {Cells}/uL [place] [employer] [facility].; [place] [employer], [employer]. Neutrophils/100 WBC (Bld) 55 % Normal 40 - 75 % [place] [employer].; [employer] Platelet mean volume (Bld) [Entitic vol] 9.8 fL Normal 7.5 - 12.5 fL [place] [employer].; [employer], [employer]. Platelets (Bld) [#/Vol] 255 10*3/uL Normal 140 - 400 10*3/uL [place] [employer].; [facility], [employer]. RBC (Bld) [#/Vol] 4.45 10*6/uL Normal 3.80 - 5.1 0 10*6/uL [place] [employer], [employer].; [facility], Inc[facility] WBC (Bld) [#/Vol] 7.3 10*3/uL Normal 3.8 - 10.8 10*3/uL [place] [employer].; [facility], [employer]. Laboratory - Chemistry and C hemistry - challengeon 05-10-2019 TSH Qn 2.34 m[IU]/L Normal 0.40 - 4.50 {mIU/L} [employer].; [employer]. Laboratory - Chemistry and C hemistry - challengeon 11-07-2017 TSH Qn 1.70 m[IU]/L Normal 0.40 - 4.50 {mIU/L} [employer].; [employer]. Laboratory - Hematology and Cell countson 11-07-2017 Basophils (Bld) [#/Vol] 30 {Cells}/uL Normal 0 - 200 {Cells}/uL [employer].; [employer]. Basophils/100 WBC (Bld) 0 % Normal 0 - 1 % [employer].; [employer]. Eosinophils (Bld) [#/Vol] 210 {Cells}/uL Normal 15 - 500 {Cells}/uL [employer].; [employer]. Eosinophils/100 WBC (Bld) 3 % Normal 0 - 4 % [employer].; [employer]. Erythrocyte distribution width (RBC) [Ratio] 13.5 % Normal 11.0 - 15.0 % [employer].; [employer], [employer]. Hematocrit (Bld) [Volume fraction] 40.6 % Normal 35.0 - 45.0 % [employer].; [employer], [employer]. Hemoglobin (Bld) [Mass/Vol] 13.4 g/dL Normal 11.7 - 15.5 g/dL [employer].; [employer]. Lymphocytes (Bld) [#/Vol] 3250 {Cells}/uL Normal 850 - 3900 {Cells}/uL [employer].; [employer]. Lymphocytes/100 WBC (Bld) 43 % Normal 12 - 47 % [employer].; [employer], [employer]. MCH (RBC) [Entitic mass] 29.7 pg Normal 27.0 - 33.0 PG [employer].; [employer], [employer]. MCHC (RBC) [Mass/Vol] 32.9 g/dL Normal 32.0 - 36.0 g/dL [email or web address].; [place], [employer]. MCV (RBC) [Entitic vol] 90.4 fL Normal 80.0 - 100.0 fL [email or web address].; [facility], [employer]. Monocytes (Bld) [#/Vol] 280 {Cells}/uL Normal 200 - 950 {Cells}/uL [facility].; [facility] [employer], [employer]. Monocytes/100 WBC (Bld) 4 % Normal 4 - 12 % [facility].; [place] [employer] Neutrophils (Bld) [#/Vol] 3870 {Cells}/uL Normal 1500 - 7800 {Cells}/uL [place] [employer].; [place] [employer], [employer]. Neutrophils/100 WBC (Bld) 51 % Normal 40 - 75 % [place] [employer] [facility], [employer].; [employer], [employer]. Platelet mean volume (Bld) [Entitic vol] 10.1 fL Normal 7.5 - 12.5 fL [email or web address].; [employer], [employer]. Platelets (Bld) [#/Vol] 210 10*3/uL Normal 140 - 400 10*3/uL [place] [employer] [place] [employer], [employer]. RBC (Bld) [#/Vol] 4.50 10*6/uL Normal 3.80 - 5.1 0 10*6/uL [place] [employer].; [employer], [employer]. WBC (Bld) [#/Vol] 7.6 10*3/uL Normal 3.8 - 10.8 10*3/uL [place] [employer].; [facility], [employer]. Laboratory - Chemistry and C hemistry - challengeon 11-03-2017 Albumin [Mass/Vol] 4.9 g/dL Normal 3.6 - 5.1 g/dL [email or web address].; [place] [employer], [employer]. Albumin/Globulin [Mass ratio] 1.7 {ratio} Normal 1.0 - 2.5 [facility].; [employer], [employer]. ALP [Catalytic activity/Vol] 72 U/L Normal 33 - 130 U/L [facility] [employer] [facility].; [place] [facility], [facility]. ALT [Catalytic activity/Vol] 10 U/L Normal 6 - 29 U/L [facility], [facility].; [facility], [facility]. AST [Catalytic activity/Vol] 21 U/L Normal 10 - 35 U/L [facility], [facility].; [facility], [facility]. Bilirubin [Mass/Vol] 0.4 mg/dL Normal 0.2 - 1 .2 mg/dL [facility], [facility].; [facility], [facility]. Calcium [Mass/Vol] 9.9 mg/dL Normal 8.6 - 10. 4 mg/dL [facility], [facility].; [facility], [facility]. Chloride [Moles/Vol] 111 mmol/L Abnormal 98 - 11 0 mmol/L [facility], [facility].; [facility], [facility]. CO2 [Moles/Vol] 12 mmol/L Abnormal 20 - 31 mmol/L [facility], [facility].; [facility], [facility]. Creatinine [Mass/Vol] 0.92 mg/dL Normal 0.50 - 1.05 mg/dL [facility], [facility].; [facility], [facility]. GFR/1.73 sq M.predicted among blacks MDRD (S/P/Bld) [Vol rate/Area] 83 {ML/MIN/1.73M2} Normal [facility], [facility].; [facility], [facility]. GFR/1.73 sq M.predicted MDRD (S/P/Bld) [Vol rate/Area] 72 {ML/MIN/1.73M2} Normal [facility], [facility].; [facility], Inc[facility] Globulin (S) [Mass/Vol] 2.9 g/dL Normal 1.9 - 3.7 g/dL [facility], [facility].; [facility], [facility]. Glucose [Mass/Vol] 80 mg/dL Normal 65 - 99 mg/dL [facility], [facility].; [facility], [facility]. Potassium [Moles/Vol] 5.0 mmol/L Normal 3.5 - 5.3 mmol/L [facility], [facility].; [facility], Inc[facility] Protein [Mass/Vol] 7.8 g/dL Normal 6.1 - 8.1 g/dL [facility], [facility].; [employer]. Sodium [Moles/Vol] 139 mmol/L Normal 135 - 146 mmol/L [employer]. TSH Qn Normal [employer]. Urea nitrogen [Mass/Vol] 20 mg/dL Normal 7 - 25 mg/dL [employer]. Urea nitrogen/Creatinine [Mass ratio] 21.5 mg/mg Normal 6 - 22 [employer].; [employer]. Laboratory - Hematology and Cell countson 11-03-2017 WBC (Bld) [#/Vol] Normal [employer]. CT CERVICAL SP. W/O CONon CT CERVICAL SP. W/O CON CT CERVICAL SP. W/O CONOrdering Physician: Yuri Alicia MD04/28/2017 9:40 AMCT CERVICAL SPINE WITHOUT CONTRAST:Clinical Statement: Spine surgery 03/10/2017.Comparison: Outside MRI cervical spine 01/18/2017.TECHNIQUE: Axial CT images of the cervical spine without contrast.Sagittal and coronal reformats were also obtained.FINDINGS:Seven cervical type vertebral bodies identified. There isstraightening of the cervical spine. Vertebral bodies are aligned.Postsurgical changes are identified related to C5-C6 anterior spinalfixation and interbody implant placement. No hardware fracture orperihardware lucency.Vertebral body heights and disk heights are well-maintained. [place] mild scattered facet hypertrophy is noted. Uncovertebralhypertrophy is noted at C5-C6.Mild bony demineralization is noted, which may be within broad rangeof normal. No acute fractures or traumatic malalignment identified.No prevertebral soft tissue swelling. The other visualized softtissues are unremarkable.IMPRESSION:1 . Postsurgical changes related to C5-C6 anterior spinal fixation asabove.2. No acute cervical spinal abnormality. ---- Electronic Signature on File ----Signed By: Lexy Pride [email or web address] d: 04/28/2017 2:56 PMSigned: 04/28/2017 3:03 PM Reported By: LEXY PRIDE M.D. Signed By: LEXY PRIDE M.D. [facility] OTDSjosh 03-11-2017 OT Discharge Summary [facility] OTDS Occupational TherapyInpatient Last Visit NoteThe inpatient Occupational Therapy care is discontinued at this time for thefollowing reasons: Discharge from hospital. Met w/Dr. Colon this am and hetalked w/pt and stated that there are no current skilled OT needs. He isdischarging ptInterventions:Recommend ations: Upon acute care discharge, the following is currentlyrecommended:No further care.Discharge Plan: The patient's status and plan was discussed with patient andagreed upon.If there are any questions regarding this service, please contact the AcuteTherapy Department at extension [phone]:Total Billed: 0 minutes (Timed: 0, Untimed: 0)0.00 Untimed: [] OT Evaluation ORDERSigned by: JINA MARTÍNEZ 03/11/2017 10:40:14 [facility] PATIENT NAME: KELLIE CORONEL [address] [address] [place] MEDICAL REC #: [id number], [place] [address] DATE: 03/10/17SERVICE DATE: 03/11/17Occup. Therapy Discharge Summary ATTENDING PHY: Yuri Alicia MD [facility] PTARon 03-11-2017 PT Assessment Report [facility] PTAR Physical TherapyInpa tient EvaluationMedical Diagnosis: s/p ACDF C5-6, harvest bone marrow on 03/10/17Therapy Diagnosis:Rank Code Description1 R26.81 Unsteadiness on feet2 M62.81 Muscle weakness (generalized)Demographics :Age: 52YGender: FemalePrimary Language: EnglishPreferred Language: EnglishReferring Service/Team: Orthopedic SpinePast Medical History: migraine hx, IBSPAST SURGICAL HX: hyster, , hernia, anal wart removed, ankle cystremovedHistory of Present Illness:Date of Surgery: 03/10/17dditional Information: see aboveDate of Admission: 03/10/2017 6:00:00 AMRehabilitation Precautions/Restrictions: fall risk, cervical precautions, braceImaging/Testing Results from Chart: n/aSUBJECTIVEPrior Level of Functioning:Indoor Mobility: Patient completed the activities by him/herself, with orwithout an assistive device, with no assistance from a helper.Stairs: Patient completed the activities by him/herself, with or without anassistive device, with no assistance from a helper.independent in ADLs and ambulation.Prior Device Use:[id number]. Prior DeviceNone of Above YesPatient/Caregiver Goals: Patient's functional goals: go homePain: Patient currently has pain.Location: incisionType: AcuteIntermittentRecurren t [facility] PATIENT NAME: KELLIE CORONEL [id number] [facility] [address] [place] MEDICAL REC #: [id number], [place] [address] DATE: 03/10/17SERVICE DATE: 03/11/17Physical Therapy Assessment Report ATTENDING PHY: Yuri Alicia MDQuality: Aching.Pain Scale: Visual Analog (VAS).Patient reports a pain level of 4 out of 10.Patient's acceptable level of pain 1 out of 10.Interferes with physical activity.Pain is alleviated by: medication, restPain is exacerbated by: movementInterventions: Repositioned patient. Patient medicated. by nursing 9 amHome Environment: Patient lives with fiance who works third shift , who is ableto assist patient at discharge. Patient lives in a single family home. Home istwo levels. Patient is required to manage 12 step(s) within the home, with rightascending handrails. First floor full bathroom setup available. Second floorbathroom setup available. There are 3 steps to enter the home, with no handrailings. There is no ramp available to enter home.Equipment Owned: walk in shower with shower seat and grab bars, higher commodeon 1st floorSocial History: Marital Status: engagedChildren: 1 son knownReside: localEmployment Status: [employer] assemblyRecreational Activities/Hobbies:OBJECT IVECognitive ScreenResponsiveness: Alert.Orientation: Oriented to person, place, time, and situation.Following Commands: Patient is able to follow 2-step commands.Range of MotionUpper Extremity: Grossly within functional limitsLower Extremity: Grossly within functional limitsStrengthUpper Extremity: Not within functional limits grossly 3+/5 bilat, MMT deferredd/t cervical surgeryLower Extremity: Grossly within functional limitsTone/Spasticity: No relevant impairments.Sensation: Grossly intact.Balance: Independent and within functional limits.Therapeutic/Functi onal Activities:Bed Mobility: Within functional limits.Transfers: Patient transferred sit to/from stand with independence.Locomotion/G ait/Ambulation: Patient was independent withgait/ambulation for 175'x2 . No assistive devices were required. no overt gait [facility] PATIENT NAME: KELLIE CORONEL [id number] [facility] [address] Rico MEDICAL REC #: [id number], [place] [address] DATE: 03/10/17SERVICE DATE: 03/11/17Physical Therapy Assessment Report ATTENDING PHY: Yuri Alicia MDdeviationsGait Deviations:Stairs: Patient was modified independent for 9 up and down . Patientused the following equipment: Unilateral Railing.AM-PAC Basic Mobility:Turning Over in Bed: No difficultySitting/Standin g Chair with Arms: No difficultyLying on Back to Sitting on Side of Bed: No difficultyMoving To/From Bed to Chair: No help neededWalking in Hospital Room: No help neededClimbing 3-5 Steps with Railing: A little help neededRaw Score = 23 , AM-PAC t-Scale Score = 56.93 and G-Code Modifier = CIVital Signs:Vitals:Oxygen Saturation: 95 %Interventions: Evaluation LOW ComplexityTherapeutic Activities: functional transfer training, obstacle negotiationre: safety within home; role of P.T. and POC, step safety re: cervical collarPain Reassessment: No significant change in pain during session.Education:The patient's preferred learning method is: Explanation, DemonstrationBarriers to Learning: Acuity of illnessLearning Needs: Precautions.Pain management.Plan of care.Rehabilitation techniques and procedures.Safety.Functio nal activities/mobility.Equip ment.Education Provided: Precautions. Plan of care. Stair/curb/environmental barriernegotiation.Audien ce: Patient and significant other.Mode: Explanation. Demonstration.Response: Verbalized understanding.ASSESSMENTP roblem List: NoneStrengths: Independent premorbid function, Social/family supportRehabilitation Potential: Not applicableMotivation/Comm itment to Therapy: Not applicable.Response to Evaluation: well tolerated, no limitations this date. therapist diddiscuss don/doff collar as pt questioned re: safety with mobility, showeringwith fiance aware of fitting. pt is 52 y.o. female with medical hx as above, d/c [facility] [facility] MED[facility] REC #: [id number], [place] [address] DATE: 03/10/17SERVICE DATE: 03/11/17Physical Therapy Assessment Report ATTENDING PHY: Satyan,Yuri B MDthis date as no acute needs. nursing aware.Activity/Participat ion Problem List and Goals: No activity/participationlim itations.Treatment Goals: Not applicable.PLANTreatment Frequency, Duration and Interventions: Physical Therapy services arediscontinued at this time secondary to: Goals have been MET. No need for skilledtherapy intervention at this time.Recommended Physical Therapy Follow Up: Upon acute care discharge, the followingis currently recommended: No further careRecommended Equipment: n/a .Recommended Consults: None currently.Development of Plan of Care: There was no change to plan of care today.If there are any questions regarding this service, please contact the AcuteTherapy Department at extension [phone] to Nursing:Walking: up independentlyLocation of Patient at End of Therapy Session: In bed, without bed alarm, calllight within reachServices:Total Billed: 15 minutes (Timed: 15, Untimed: 0)15.00 Timed: [04077] THER ACTIVITIES / 15 MIN0.00 Untimed: [47973] PT-EVALUATION LOW COMPLEXITY0.00 Untimed: [] PT Evaluation ORDERSigned by: Julien Nichols PT 03/11/2017 10:12:28 [facility] PATIENT NAME: KELLIE CORONEL [id number] [facility] [address] Rico MEDICAL REC #: [id number], [place] [address] DATE: 03/10/17SERVICE DATE: 03/11/17Physical Therapy Assessment Report ATTENDING PHY: Yuri Alicia MD [facility] [place] CERVICAL SPINE LATERAL ONLYo n 03-10-2017 BSA (Body Surface Area) CERVICAL SPINE LATERAL ONLYOrdering Physician: Yuri Alicia MD03/10/2017 1:15 PMLATERAL CERVICAL SPINE IN OR:Clinical Statement: Cervical degenerative disk disease. Film in ORfor localization.Comparison: None.FINDINGS: A lateral fluoroscopic image of the cervical spine wasobtained in the OR. Degenerative disk disease is noted C5-C6 with aneedle projecting over the C5-C6 disk space anteriorly.IMPRESSION:The needle projects over the anterior C5-C6 disk space.A stat report was sent to the ER at the time of dictation. ---- Electronic Signature on File ----Signed By: Cristina [email or web address] d: 03/10/2017 1:27 PMSigned: 03/10/2017 1:29 PM Reported By: BETHANY MCPHERSON M.D. Signed By: BETHANY MCPHERSON M.D. [facility] DOSETRACKon 03-10-2017 [facility] DOSETRA Test Dose report.Nam e: HOMER PARKER IAccession Number: [id number] Type: CTExam: CSP-CMax CTDIVol: 21.49 mGyDLP: 350.99 mGy*ogNY9JQ CERVICAL SP. W/O [id number]. [id number] 7644Bjud383.6442582.72693 95008.34833947256386.0000 [id number] [id number] [id number] 39819.4680501448J2-78928H eck6.234055045109.1477336 91153.07626.6644936.31177 [id number] .[id number] [facility] PATIENT NAME: HOMERKELLIE [id number] [facility] [address] Rico MEDICAL REC #: [id number], [place] [address] DATE: 03/10/17DISCHARGE DATE: 03/11/17PERICO ATTENDING PHY: Yuri Alicia [id number]. [id number] 1120.63 [facility] PATIENT NAME: KELLIE CORONEL [id number] [facility] [address] [place] MEDICAL REC #: [id number] [address] DATE: 03/10/17DISCHARGE DATE: 03/11/17PERICO ATTENDING PHY: Yuri Alicia MD [facility] 03-10-2017 DISCHARGE [place] [facility] [place] DATE OF ADMISSION: 03/10/2017DATE OF DISCHARGE: 03/11/2017FINAL DIAGNOSIS: C5-C6 herniated disc with cervical myelopathy.HISTORY OF PRESENT ILLNESS: This is a 52-year-old female, initially presented to 's clinic with symptoms of cervical myelopathy with an MRI showing a C5-O3npmwsqtqmmmx disc with collapse of disc space and posterior disc osteophyte causingsignificant stenosis with signal change in the spinal cord. Per discussion withpatient, she was agreeable to surgery and was admitted to the hospital on 2016, where she underwent a C5-C6 anterior cervical discectomy and fusion.Patient tolerated procedure well and was extubated and transferred to PACU in stablecondition. Following PACU observation, the patient was subsequently transferred tot medical floor for continued observation overnight. Patient had no issuesovernight and was discharged to home subsequently on postoperative day 1 in goodcondition with discharge instructions given and all appropriate prescriptions writtenby physician. Patient discharged to home in good condition.Trenton Morocho CNP dictating for _BEVERLY Barber/[id number]: 04/24/2017 11:42DT: 04/24/2017 14:21SSI File#: [id number] #: [id number]/Reviewed by04/28/17 1122 [address] [facility] PATIENT NAME: KELLIE CORONEL [id number] [facility] [address] [place] MEDICAL REC #: [id number], [place] [address] DATE: 03/10/17DISCHARGE DATE: 03/11/17DISCHARGE SUMMARY ATTENDING PHY: Yuri Alicia MD [facility] FLUOROSCOPY IN OR/PAIN MGTon 03-10-2017 BSA (Body Surface Area) FLUOROSCOPY IN OR/PAIN MGTOrdering Physician: Yuri Alicia MD03/10/2017 12:40 PMPORTABLE INTRAOPERATIVE FLUOROSCOPYClinical Statement: Cervical degenerative disk disease C5-6Comparison: NoneFINDINGS: Report is being generated documenting utilization of 7seconds of fluoroscopic time by Dr. Alicia. Total of four spot filmsare obtained.IMPRESSION:Docum entation of fluoroscopy utilized by Dr. Alicia. Please refer tohis notes for details of the procedure. ---- Electronic Signature on File ----Signed By: Cristina [email or web address] d: 03/10/2017 3:22 PMSigned: 03/10/2017 3:23 PM Reported By: YADY PAZ M.D. Signed By: YADY PAZ M.D. [facility] OPERATIVE REPORT This is a preliminar y report only, as the practitioner review and authentication has not occurred. Normal [facility] [place] OR DATE OF SERVICE: 03/10/2017SERVICE: Neurosurgery.PREOPERATIVE DIAGNOSIS: C5-6 herniated disk with cervical myelopathy.POSTOPERATIVE DIAGNOSIS: C5-6 herniated disk with cervical myelopathy.PROCEDURE PERFORMED: C5-6 anterior cervical diskectomy and fusion, decompression ofspinal cord and nerve roots, placement of PEEK interbody cage, use of bone marrowaspirate, use of microscope and microdissection, use of fluoroscopy, use ofneurophysiology monitoring.SURGEON: Yuri Alicia MDASSISTANT: JUNG Nielsen, FELICITYANESTHESIA: PETER.ESTIMATED BLOOD LOSS: 25 mL.INTRAVENOUS FLUID: 1 L.SPECIMENS: None.FINDINGS:1. No change in neurophysiology.2. Thecal sac nerve roots felt well decompressed.3. Good hemostasis.4. Adequate alignment of spine and hardware on AP and lateral fluoroscopy.CONDITION: Stable.COMPLICATIONS: None intraoperatively.DISPOSIT ION: PACU, then the floor.INDICATIONS FOR SURGERY: A 52-year-old female who presented to my clinic withsymptoms of cervical myelopathy. MRI showed C5-6 degenerative disk with collapse ofthe disk space and a posterior disk osteophyte complex causing significant stenosis.There appeared to be signal change in the spinal cord. The report appeared toconfirm this. I had a long discussion with her and her fiance regarding risks andbenefits of surgery versus conservative management. All alternatives were discussed.She requested we proceed with surgery. She was aware she may need additionalsurgery in the future. [facility] PATIENT NAME: KELLIE CORONEL I[address] [facility] [address] Rico MEDICAL REC #: [id number], [place] [address] DATE: 03/10/17DISCHARGE DATE: 03/11/17OPERATIVE REPORT ATTENDING PHY: Yuri Alicia MDPROCEDURE IN DETAIL: The patient was brought to the operating room. A timeout wasperformed. She was intubated and sedated. She was placed in the supine positionwith a transverse shoulder roll and her head on a donut. Her neck was cleanedappropriately. Fluoroscopy was brought in to identify the level. The left anteriorsuperior iliac spine was prepped and draped in standard sterile fashion. Bone marrowaspirate needle was passed through the skin and gently maneuvered to the anterioriliac crest. Bone marrow was aspirated and placed over Mastergraft. The needle wasremoved and hemostasis obtained. Sterile bandage was applied. She was prepped anddraped in the standard sterile fashion. Incision site was infiltrated with 1%Lidocaine with epinephrine. A No.10 blade was used to make an incision in the skin.This was carried down to platysma. The platysma was opened sharply. We dissected inthe avascular plane medial to the sternocleidomastoid and great vessels. A Kitnerwas used to dissect away the soft tissue. Prevertebral fascia was sharply incisedwith Metzenbaum scissors. The large posterior osteophyte correlating with C5-6 wasidentified. A bone cutter was used to dissect along off the vertebral bodies. TheLeksell rongeur was used to take down the large anterior osteophyte. We thenlocalized and this confirmed that we were at C5-6. Self-retaining retractors wereplaced. The disk space was opened with a 15 blade. Distraction posts were placedand the site distracted. Microscope was brought in for microdissection. Anteriorosteophytes were removed using Kerrison punch. Diskectomy was performed withstraight and angled curets. We then performed significant arthrodesis of thesuperior and inferior endplates with the matching drill bit. Posterior osteophyteswere drilled down. Nerve hook was used to obtain a plane between the thecal sac andthe PLL. The PLL was opened sharply with the 11 blade. The remainder of the diskand posterior osteophyte and PLL were removed using Kerrison punch. Decompressionwas continued laterally bilaterally. The thecal sac and nerve roots now felt welldecompressed. Nerve hook was easily passed all around. No abnormal EMG during anyof this. There was no change in neurophysiology. Hemostasis was achieved withSurgiflo. The site was thoroughly irrigated. There was no sign of any significantbleeding. Valsalva was performed and there was no sign of any significant bleeding.There was no change in motor evoked potentials at this point. A 7 trial appeared feli a good fit. A 7 mm Bengal cage was packed with mass graft. This was gently movedinto place. Good snug fit to the cage. Distraction posts were removed andhemostasis obtained with bone wax. The site was thoroughly irrigated with Bacitracinirrigation. A 12 mm plate appeared to be good fit and 14 mm screws were placed x2 atC5 and C6. Good purchase of bone and placement of screws. Final tightening wasperformed. Locking mechanisms were secured. The site was thoroughly irrigated withBacitracin irrigation. No sign of any significant bleeding. Self-retainingretractors were removed. The site was thoroughly inspected. No sign of anyesophageal or vascular injury. A dry Ray-Miguelangel was left in the site. Microscope wastaken out. AP and lateral fluoroscopy showed adequate alignment of the spine andhardware. The Ray-Miguelangel was removed. There was no sign of any significant bleeding.The platysma was closed with inverted interrupted 3-0 Vicryl sutures. The skin wasclosed with 4-0 Monocryl stitch in subcuticular fashion. Dermabond and silverdressing were applied. All instruments, needles, and sponges were accounted for. [facility] PATIENT NAME: KELLIE CORONEL I[address] [facility] [address] Rico MEDICAL REC #: [id number], [place] [address] DATE: 03/10/17DISCHARGE DATE: 03/11/17OPERATIVE REPORT ATTENDING THAY: Yuri Alicia MDThe patient tolerated the procedure well. She will be transferred to the PACU instable condition. There is no change in neurophysiology. There is good hemostasis.INSTRUMENTATIO N: The DePuy Turton system was used. A 12 mm plate was used with 14mm screws x4, a 7 mm standard Bengal cage was used for the interbody, Mastergraft wasused for the allograft. BEVERLY Barber/[id number]: 03/10/2017 14:25DT: 03/10/2017 15:40SSI File#: [id number] #: [id number] [facility] PATIENT NAME: KELLIE CORONEL I[address] [facility] [address] Rico MEDICAL REC #: [id number], [place] [address] DATE: 03/10/17DISCHARGE DATE: 03/11/17OPERATIVE REPORT ATTENDING PHY: Yuri Alicia MD [facility] TSon 03-10-2017 ANTIBODY SCREEN TNP [facility] Comment on above: Order Comment: Alex s: MPatient transfused or in the past 3 months? NOIs This Patient Going To Surgery? YSurgery Date: 03/10/17 Result Comment: Latonia ent was NOT transfused or in the past 3 months.Antibody screen not indicated. BLOOD TYPE Positive [facility] Comment on above: Order Comment: Alex s: MPatient transfused or in the past 3 months? NOIs This Patient Going To Surgery? YSurgery Date: 03/10/17 ABO/RH NCon 02-24-2017 BLOOD TYPE Positive [facility] Comment on above: Order Comment: Alex s: MIs This Patient Going To Surgery? YSurgery Date: 03/10/17 ANTIBODY SCREENon 02-24-2017 ANTIBODY SCREEN Negative [facility]: Order Comment: Campu s: MIs This Patient Going To Surgery? YSurgery Date: 03/10/17 CBC W/DIFFon 02-24-2017 BASO ABS 0.10 K/CU MM Normal 0-0.2 [facility] Comment on above: Order Comment: Campu s: M Performed By: #### L 200.46662 ####[facility] [id number] [place], [place] [address]Fe# [phone] Basophils/100 WBC Auto (Bld) 1.0 % Normal 0-2 [facility] Comment on above: Order Comment: Campu s: M Performed By: #### L 200.06073 ####[facility] [id number] [place], [place] [address]Ro# [phone] EOS ABS 0.20 K/CU MM Normal 0-0.5 [facility] Comment [facility] above: Order Comment: Campu s: M Performed By: #### L 200.68642 ####[facility] [id number] [place] [address]Uf# [phone] Eosinophils/100 leukocytes 3.3 % Normal 0-5 [facility] Comment [facility] above: Order Comment: Campu s: M Performed By: #### L 200.99849 ####[facility] [id number] [place], [place] [address]Ab# [phone] Erythrocyte distribution width Auto Ratio (RBC) 12.4 % Normal 11-14.5 [facility] Comment on above: Order Comment: Campu s: M Performed By: #### L 200.55841 ####[facility] [id number] [place], [place] [address]Gi# [phone] Erythrocytes (RBC) 4.51 M/CU MM Normal 3.90-5.30 [facility]: Order Comment: Campu s: M Performed By: #### L 200.90747 ####[facility] [id number] [place] [address]As# [phone] Erythrocytes (RBC) 0.0 % Normal Less than 1 [facility] [place] Comment on above: Order Comment: Campu s: M Performed By: #### L 200.13453 ####[facility] [id number] [place] [address]Og# [phone] Hematocrit (HCT) 41.0 % Normal 35.0-47.0 [facility] [place] Comment on above: Order Comment: Campu s: M Performed By: #### L 200.89103 ####[address] [address]Ly# [phone] Hemoglobin mass conc (Bld) 13.8 g/dL Normal 11.5-15.5 [facility] [place] Comment on above: Order Comment: Campu s: M Performed By: #### L 200.27041 ####[address] [address]Cr# [phone] IMMATR GRAN ABS 0.00 K/CU MM Normal Less than 2 [facility] [place] Comment on above: Order Comment: Campu s: M Performed By: #### L 200.81329 ####[place] [address]23[address]Ph# [phone] IMMATURE GRAN % 0.3 % Normal Less than 2 [facility] [place] Comment on above: Order Comment: Campu s: M Performed By: #### L 200.65918 ####[facility] [id number] [place] [address]Ah# [phone] Lymphocytes 2.30 K/CU MM Normal 0.9-4.4 [facility] [place] Comment on above: Order Comment: Campu s: M Performed By: #### L 200.78500 ####[facility] [id number] [place] [address]Xp# [phone] Lymphocytes/100 leukocytes 34.7 % Normal 20-40 [facility] [place] Comment on above: Order Comment: Campu s: M Performed By: #### L 200.16128 ####[facility] [id number] [place], [place] [address]Uk# [phone] MCHC mass conc (RBC) 33.7 g/dL Normal 32.0-36.0 [facility] [place] Comment on above: Order Comment: Campu s: M Performed By: #### L 200.52143 ####[facility] [id number] [place] [address]Xl# [phone] MCV 90.9 fL Normal 80.0-99.0 [facility] Comment on above: Order Comment: Campu s: M Performed By: #### L 200.43153 ####[place] [address]23[address]Ph# [phone] MONO ABS 0.50 K/CU MM Normal 0.1-1.1 [facility] Comment on above: Order Comment: Campu s: M Performed By: #### L 200.91964 ####[place] [address]23[address]Ph# [phone] Monocytes/100 leukocytes 6.8 % Normal 2-10 [facility] Comment on above: Order Comment: Campu s: M Performed By: #### L 200.85442 ####[address] [address]Qd# [phone] Neutrophils 3.60 K/CU MM Normal 2.0-8.3 [facility] Comment on above: Order Comment: Campu s: M Performed By: #### L 200.43835 ####[facility] [id number] [place], [place] [address]Ph# [phone] Neutrophils/100 WBC Auto (Bld) 53.9 % Normal 45-75 [facility] Comment on above: Order Comment: Campu s: M Performed By: #### L 200.02782 ####[facility] [id number] [place], [place] [address]Ph# [phone] Platelet mean volume (PMV) 10.6 fL Normal 9.4-12.4 [facility] Comment on above: Order Comment: Campu s: M Performed By: #### L 200.24809 ####[facility] [id number] [place], [place] [address]Ok# [phone] Platelets 211 K/CU MM Normal 150-450 [facility] [place] Comment on above: Order Comment: Campu s: M Performed By: #### L 200.32792 ####[facility] [id number] [place] [address]Ar# [phone] WBC (Leukocytes) 6.7 K/CU MM Normal 4.5-11.0 [facility] Comment on above: Order Comment: Campu s: M Performed By: #### L 200.04362 ####[address] [address]Cg# [phone] CMPon 02-24-2017 Alanine aminotransferase (ALT) 50 U/L Normal 13-61 [facility] Comment on above: Order Comment: Campu s: M Performed By: #### L 500.84422, L500.99881 ####[facility] [id number] [place] [id number]# [phone] Albumin 4.2 g/dL Normal 3.2-5.0 [facility] Comment on above: Order Comment: Campu s: M Performed By: #### L 500.89174, L500.91828 ####[facility] [id number] [place], [place] [address]Cx# [phone] Albumin/Globulin Ratio 1.3 {ratio} Normal 0.8-2.0 [facility] Comment on above: Order Comment: Campu s: M Performed By: #### L 500.39939, L500.68216 ####[facility] [id number] [place] [address]Si# [phone] ALK PHOS 77 U/L Normal 45-117 [facility] Comment on above: Order Comment: Campu s: M Performed By: #### L 500.61221, L500.55750 ####[facility] [id number] [place], [place] [address]Pe# [phone] Anion gap 8 mmol/L Normal 5-16 [facility] [place] Comment on above: Order Comment: Campu s: M Performed By: #### L 500.43977, L500.07679 ####[facility] [id number] [place], [place] [address]Lo# [phone] BILI TOTAL 0.4 MG/DL Normal 0.2-1.0 [facility] Comment on above: Order Comment: Campu s: M Performed By: #### L 500.54390, L500.78438 ####[address] [address]Ko# [phone] BUN/Creatinine Ratio 10 mg/mg Low 15-24 [facility] Comment on above: Order Comment: Campu s: M Performed By: #### L 500.41292, L500.45096 ####[facility] [id number] [place], [place] [id number]# [phone] Calcium 9.5 mg/dL Normal 8.5-10.1 [facility] [place] Comment on above: Order Comment: Campu s: M Performed By: #### L 500.14812, L500.90363 ####[facility] [id number] [place], [place] [address]As# [phone] Chloride 107 mmol/L Normal 98-107 [facility] Comment on above: Order Comment: Campu s: M Performed By: #### L 500.44465, L500.68842 ####[facility] [id number] [place] [address]Ko# [phone] CO2 25 mmol/L Normal 21-32 [facility] [place] Comment on above: Order Comment: Campu s: M Performed By: #### L 500.72135, L500.81745 ####[facility] [id number] [place] [address]Fl# [phone] Creatinine 0.975 mg/dL High 0.510-0.950 [facility] [place] Comment on above: Order Comment: Campu s: M Result Comment: Latonia ents receiving either N-Acetylcysteine (NAC) orMetamizole prior to venipuncture, may have falsely depressedresults. Performed By: #### L 500.06970, L500.32674 ####[facility] [id number] [place], [place] [address]Gc# [phone] Globulin 3.3 g/dL Normal 2.2-4.2 [facility] Comment on above: Order Comment: Campu s: M Performed By: #### L 500.60957, L500.48213 ####[facility] [id number] [place], [place] [address]Pp# [phone] Glucose mass conc 83 mg/dL Normal 70-100 [facility] Comment on above: Order Comment: Campu s: M Result Comment: 70-1 00-Normal Fasting; [id number] Fasting; greaterthan 126 on more than one result-Diabetes. ADA guidelines Performed By: #### L 500.56592, L500.28289 ####[facility] [id number] [place], [place] [address]Qc# [phone] Potassium molar conc 4.3 mmol/L Normal 3.5-5.1 [facility] Comment on above: Order Comment: Campu s: M Performed By: #### L 500.00976, L500.75993 ####[facility] [id number] [place], [place] [address]Ji# [phone] Protein 7.5 g/dL Normal 6.0-8.5 [facility] Comment on above: Order Comment: Campu s: M Performed By: #### L 500.08293, L500.59948 ####[facility] [id number] [place], [place] [address]Sm# [phone] SGOT (AST) 37 U/L High 8-34 [facility] Comment on above: Order Comment: Campu s: M Performed By: #### L 500.57842, L500.26058 ####[facility] [id number] [place], [place] [address]Bn# [phone] Sodium 141 mmol/L Normal 136-145 [facility] Comment on above: Order Comment: Campu s: M Performed By: #### L 500.07313, L500.78128 ####[facility] [id number] [place], [place] [address]Dk# [phone] Urea nitrogen 10 mg/dL Normal 7- [facility] Comment on above: Order Comment: Campu s: M Performed By: #### L 500.91259, L500.06829 ####[facility] [id number] [place] [address]Vx# [phone] GFR ESTon 02-24-2017 IF AMER Greater than 60 Normal [facility] Comment on above: Order Comment: Campu s: M Performed By: #### L 500.67935, L500.15050 ####[facility] [id number] [place] [address]Ox# [phone] IF non-AFR AMER 60 ML/MIN Normal [facility] Comment on above: Order Comment: Campu s: M Performed By: #### L 500.76419, L500.60674 ####[facility] [id number] [place] [address]Lu# [phone] MRSA PCRon 02-24-2017 MRSA PCR Negative Normal NEGATIVE [facility] Comment on above: Order Comment: Campu s: M Result Comment: ANIBAL FONSECA NOTE: TESTING DONE BY PCR TECHNOLOGY.The SA Nasal complete MRSA assay on the docplanner GeneXperthas not been validated for use on patients under 21 years ofage. All patients under 21 years of age, run on theGeneXpert will be confirmed by a Blood [place] plate, followedby an EMMANUEL, to confirm MRSA. Performed By: #### L 770.80874 ####[facility] [id number] [place], [place] [address]Bl# [phone] SA PCR Negative Normal NEGATIVE [facility] Comment on above: Order Comment: Campu s: M Result Comment: ANIBAL FONSECA NOTE: TESTING DONE BY PCR TECHNOLOGY. Performed By: #### L 770.09538 ####[facility] [id number] [place], [place] [address]Ho# [phone] PATIENT RETYPEon 02-24-2017 RETYPE INTERP Positive Normal [facility] [place] Comment on above: Order Comment: Alex rodriguez: MIs This Patient Going To Surgery? YSurgery Date: 03/10/17 Laboratory - Chemistry and C hemistry - challengeon 10-13-2016 Bilirubin Ql (U) Negative Normal [employer] Ketones Ql (U) Negative Normal [employer]. pH (U) 7.0 [pH] Normal [employer]. Specific gravity (U) [Rel density] 1.020 Normal [employer]; [employer] Urobilinogen Qn (U) 0.2 mg/dL Normal [employer]. Laboratory - Hematology and Cell countson 10-13-2016 Hemoglobin Ql (U) moderate Abnormal [employer]. Laboratory - Specimen inform ationon 10-13-2016 Appearance (U) clear Normal [employer]; [employer]. Color (U) yellow Normal [employer]. Laboratory - Urinalysison Glucose Test strip (U) [Mass/Vol] Negative Normal [employer]. Leukocyte esterase Test strip Ql (U) Negative Normal [employer]. Nitrite Ql (U) Negative Normal [employer]. Protein Ql (U) Negative Normal [employer].; [employer]. Laboratory - Chemistry and C hemistry - challengeon 03-25-2016 Cholesterol [Mass/Vol] 175 mg/dL Normal 0 - 200.0 mg/dL [employer]; [employer]. Cholesterol in HDL [Mass/Vol] 61 mg/dL Abnormal 30.0 - 40.0 mg/dL [facility].; [place] [employer] [facility] Cholesterol in LDL [Mass/Vol] 102 mg/dL Normal 50.0 - 130.0 mg/dL [facility].; [place] [employer] [facility]. Cholesterol non HDL [Mass/Vol] 114 mg/dL Normal [facility].; [place] [employer] [facility] Cholesterol.total/Cho lesterol in HDL [Mass ratio] 2.9 {ratio} Normal 0 - 5.0 [facility]; [place] [employer] [facility] Glucose Glucometer (BldC) [Moles/Vol] 90 Normal 60 - 120 [facility]; [place] [employer] [facility] Triglyceride [Mass/Vol] 60 mg/dL Normal 40 - 150 mg/dL [facility].; [employer] Laboratory - Chemistry and C hemistry - challengeon 03-16-2016 Bilirubin Ql (U) Negative Normal [facility]; [employer]. Ketones Ql (U) Negative Normal [place] [employer].; [employer]. pH (U) 7.0 [pH] Normal [place] [employer] [facility]; [employer]. Specific gravity (U) [Rel density] 1.015 Normal [place] [employer]; [employer] Urobilinogen Qn (U) .2 mg/dL Normal [facility]; [place] [employer]. Laboratory - Hematology and Cell countson 03-16-2016 Hemoglobin Ql (U) moderate Abnormal [place] [employer].; [employer]. Laboratory - Specimen inform ationon 03-16-2016 Appearance (U) Cloudy Abnormal [place] [employer]; [employer]. Color (U) yellow Normal [place] [employer] [facility].; [employer]. Laboratory - Urinalysison Glucose Test strip (U) [Mass/Vol] Negative Normal [employer].; [employer]. Leukocyte esterase Test strip Ql (U) trace Normal [employer].; [employer]. Nitrite Ql (U) Negative Normal [facility].; [employer]. Protein Ql (U) Negative Normal [facility].; [place] [employer] Laboratory - Chemistry and C hemistry - challengeon 12-17-2014 Cholesterol [Mass/Vol] 179 mg/dL Normal 0 - 200.0 mg/dL [facility].; [place] [employer] [facility]. Cholesterol in HDL [Mass/Vol] 50 mg/dL Abnormal 30.0 - 40.0 mg/dL [facility].; [employer] [facility]. Cholesterol in LDL [Mass/Vol] 118 mg/dL Normal 50.0 - 130.0 mg/dL [facility].; [place] [employer]. Cholesterol non HDL [Mass/Vol] 129 mg/dL Normal [facility].; [employer]. Cholesterol.total/Cho lesterol in HDL [Mass ratio] 3.6 {ratio} Normal 0 - 5.0 [facility].; [place] [employer] Glucose Glucometer (BldC) [Moles/Vol] 104 Normal 60 - 120 [place] [employer].; [employer] Triglyceride [Mass/Vol] 54 mg/dL Normal 40 - 150 mg/dL [place] [employer] [facility].; [employer]. Laboratory - Chemistry and C hemistry - challengeon 12-30-2013 Cholesterol [Mass/Vol] 200 mg/dL Normal 0 - 200.0 mg/dL [facility].; [place] [employer] [facility]. Cholesterol in HDL [Mass/Vol] 51 mg/dL Abnormal 30.0 - 40.0 mg/dL [place] [employer].; [place] [employer]. Cholesterol in LDL [Mass/Vol] 131 mg/dL Abnormal 50.0 - 130.0 mg/dL [place] [employer] [facility].; [employer]. Cholesterol non HDL [Mass/Vol] 149 mg/dL Normal [facility].; [place] [employer] [facility]. Cholesterol.total/Cho lesterol in HDL [Mass ratio] 3.9 {ratio} Normal 0 - 5.0 [facility] [employer]; [employer] Glucose Glucometer (BldC) [Moles/Vol] 82 Normal 60 - 120 [facility]; [employer] Triglyceride [Mass/Vol] 88 mg/dL Normal 40 - 150 mg/dL [facility].; [employer]. Laboratory - Chemistry and C hemistry - challengeon 10-31-2012 Bilirubin Ql (U) Negative Normal [facility]; [employer] [facility]. Cholesterol [Mass/Vol] 166 mg/dL Normal 0 - 200.0 mg/dL [facility]; [employer] [facility] Cholesterol in HDL [Mass/Vol] 56 mg/dL Abnormal 30.0 - 40.0 mg/dL [facility]; [employer]. Cholesterol in LDL [Mass/Vol] 100 mg/dL Normal 50.0 - 130.0 mg/dL [facility].; [employer] Cholesterol non HDL [Mass/Vol] 110 mg/dL Normal [place] [employer] [facility]; [employer] Cholesterol.total/Cho lesterol in HDL [Mass ratio] 3.0 {ratio} Normal 0 - 5.0 [place] [employer] [facility]; [employer] Ketones Ql (U) Negative Normal [place] [employer] [facility]; [employer] pH (U) 5.5 [pH] Normal 4.6 - 8.0 [place] [employer] [facility].; [employer] Specific gravity (U) [Rel density] 1.030 Abnormal 1.001 - 1.025 [place] [employer]. [facility]; [employer]. Triglyceride [Mass/Vol] 53 mg/dL Normal 40 - 150 mg/dL [employer] [employer] [facility].; [employer]. Laboratory - Hematology and Cell countson 10-31-2012 Hemoglobin Ql (U) Abnormal [employer] [employer] [facility].; [facility]. Laboratory - Specimen inform ationon 10-31-2012 Appearance (U) clear Normal [employer].; [employer]. Color (U) yellow Normal [employer]; [employer]. Laboratory - Urinalysison Glucose Test strip (U) [Mass/Vol] Negative Normal [place] [employer] [facility].; [employer]. Leukocyte esterase Test strip Ql (U) Negative Normal [place] [employer].; [employer]. Nitrite Ql (U) Negative Normal [place] [employer].; [employer]. Protein Ql (U) Negative Normal [place] [employer].; [employer]. No Panel Informationon 10-31 UA - UROBILINOGEN .2 Normal [employer].; [employer]. Laboratory - Cytologyon Microscopic observation Cyto stain Nom (Cvx) SEE NOTE Normal [employer].; [employer] Laboratory - Microbiology an d Antimicrobial susceptibilityon 05-07-2012 S. pyogenes Ag EIA Ql (Throat) Negative Normal [employer].; [employer] Vital Signs Date Time Vital Sign Value Performing Clinician Facility 04-22-2025 15:00-0400 Body temperature 97.6 [degF] Dr. Osman Pelletier MD Work Phone: [facility] 04-22-2025 15:00-0400 Diastolic blood pressure 71 mm[Hg] Dr. Osman Pelletier MD Work Phone: [facility] 04-22-2025 15:00-0400 Heart rate 62 /min Dr. Osman Pelletier MD Work Phone: [facility] 04-22-2025 15:00-0400 Respiratory rate 14 /min Dr. Osman Pelletier MD Work Phone: [facility] 04-22-2025 15:00-0400 SaO2% (BldA) [Mass fraction] 99 % Dr. Osman Pelletier MD Work Phone: [facility] 04-22-2025 15:00-0400 Systolic blood pressure 131 mm[Hg] Dr. Osman Pelletier MD Work Phone: [facility] 04-22-2025 11:38-0400 Body height 160.[address] Osman Pelletier MD Work Phone: [facility] 04-22-2025 11:38-0400 Body mass index (BMI) [Ratio] 34.3 kg/m2 Dr. Osman Pelletier MD Work Phone: [facility] 04-22-2025 11:38-0400 Body weight 87.[address] Osman Pelletier MD Work Phone: [facility] 02-20-2025 11:26-0400 Body height 163.2 cm Raven Hinojosai DO Work Phone: [facility] 02-20-2025 11:26-0400 Body mass index (BMI) [Ratio] 32.02 kg/m2 Raven Hinojosai DO Work Phone: [facility] 02-20-2025 11:26-0400 Body temperature 97.59 [degF] Raven Hinojosai DO Work Phone: [facility] 02-20-2025 11:26-0400 Body weight 85.28 kg Raven Hinojosai DO Work Phone: [facility] 02-20-2025 11:26-0400 Diastolic blood pressure 74 mm[Hg] Raven Hinojosai DO Work Phone: [facility] 02-20-2025 11:26-0400 Heart rate 64 /min Raven Hinojosai DO Work Phone: [facility] 02-20-2025 11:26-0400 SaO2% (BldA) [Mass fraction] 99 % Raven Hinojosai DO Work Phone: [facility] 02-20-2025 11:26-0400 Systolic blood pressure 117 mm[Hg] Raven Hinojosai DO Work Phone: [facility] 11-06-2024 09:28-0400 Body mass index (BMI) [Ratio] 32.79 kg/m2 Raven Ashishi DO Work Phone: [facility] 11-06-2024 09:28-0400 Body temperature 98.2 [degF] Raven Ashishi DO Work Phone: [facility] 11-06-2024 09:28-0400 Body weight 84.37 kg Raven Masci DO Work Phone: [facility] 11-06-2024 09:28-0400 Diastolic blood pressure 74 mm[Hg] Raven Masci DO Work Phone: [facility] 11-06-2024 09:28-0400 Heart rate 82 /min Raven Masci DO Work Phone: [facility] 11-06-2024 09:28-0400 SaO2% (BldA) [Mass fraction] 96 % Raven Masci DO Work Phone: [facility] 11-06-2024 09:28-0400 Systolic blood pressure 131 mm[Hg] Raven Masci DO Work Phone: [facility] 08-27-2024 09:06-0500 Body mass index (BMI) [Ratio] 32.79 kg/m2 Raven Masci DO Work Phone: [facility] 08-27-2024 09:06-0500 Body temperature 99.1 [degF] Raven Masci DO Work Phone: [facility] 08-27-2024 09:06-0500 Body weight 84.37 kg Raven Masci DO Work Phone: [facility] 08-27-2024 09:06-0500 Diastolic blood pressure 85 mm[Hg] Raven Masci DO Work Phone: [facility] 08-27-2024 09:06-0500 Heart rate 68 /min Raven Masci DO Work Phone: [facility] 08-27-2024 09:06-0500 SaO2% (BldA) [Mass fraction] 96 % Raven Masci DO Work Phone: [facility] 08-27-2024 09:06-0500 Systolic blood pressure 126 mm[Hg] Raven Masci DO Work Phone: [facility] 08-02-2024 10:02-0500 Body mass index (BMI) [Ratio] 32.96 kg/m2 Xiao Perez APRN.CNP Work Phone: [facility] 08-02-2024 10:02-0500 Body temperature 98.01 [degF] Xiao Perez [employer] Work Phone: [facility] 08-02-2024 10:02-0500 Body weight 84.8 kg Xiao Perez [employer] Work Phone: [facility] 08-02-2024 10:02-0500 Diastolic blood pressure 62 mm[Hg] Xiao Sainienter [employer] Work Phone: [facility] 08-02-2024 10:02-0500 Heart rate 107 /min Xiao Perez [employer] Work Phone: [facility] 08-02-2024 10:02-0500 SaO2% (BldA) [Mass fraction] 95 % Xiao Sainienter [employer] Work Phone: [facility] 08-02-2024 10:02-0500 Systolic blood pressure 110 mm[Hg] Xiao Perez [employer] Work Phone: [facility] 05-06-2024 08:46-0500 Body height 160.4 cm Pulm Wstr Work Phone: [facility] 05-06-2024 08:46-0500 Body mass index (BMI) [Ratio] 30.55 kg/m2 Pulm Wstr Work Phone: [facility] 05-06-2024 08:46-0500 Body weight 78.6 kg Pulm Wstr Work Phone: [facility] 05-06-2024 08:46-0500 Heart rate 85 /min Pulm Wstr Work Phone: [facility] 05-06-2024 08:46-0500 Respiratory rate 14 /min Pulm Wstr Work Phone: [facility] 05-06-2024 08:46-0500 SaO2% (BldA) [Mass fraction] 98 % Pulm Wstr Work Phone: [facility] 05-02-2024 11:23-0400 Body mass index (BMI) [Ratio] 30.12 kg/m2 Raven East DO Work Phone: [facility] 05-02-2024 11:23-0400 Body temperature 97.5 [degF] Raven Hinojosai DO Work Phone: [facility] 05-02-2024 11:23-0400 Body weight 79.61 kg Raven Hinojosai DO Work Phone: [facility] 05-02-2024 11:23-0400 Diastolic blood pressure 84 mm[Hg] Raven Hinojosai DO Work Phone: [facility] 05-02-2024 11:23-0400 Heart rate 69 /min Raven Hinojosai DO Work Phone: [facility] 05-02-2024 11:23-0400 SaO2% (BldA) [Mass fraction] 97 % Raven East DO Work Phone: [facility] 05-02-2024 11:23-0400 Systolic blood pressure 121 mm[Hg] Raven Hinojosai DO Work Phone: [facility] 02-21-2024 08:21-0400 Body height 162.6 cm Neptali Lake MD Work Phone: [facility] 02-21-2024 08:21-0400 Body mass index (BMI) [Ratio] 29.01 kg/m2 Neptali Lake MD Work Phone: [facility] 02-21-2024 08:21-0400 Body weight 76.66 kg Neptali Lake MD Work Phone: [facility] 02-21-2024 08:21-0400 Diastolic blood pressure 70 mm[Hg] Neptali Lake MD Work Phone: [facility] 02-21-2024 08:21-0400 Heart rate 74 /min Neptali Lake MD Work Phone: [facility] 02-21-2024 08:21-0400 SaO2% (BldA) [Mass fraction] 97 % Neptali Lake MD Work Phone: [facility] 02-21-2024 08:21-0400 Systolic blood pressure 120 mm[Hg] Neptali Lake MD Work Phone: [facility] 01-26-2024 11:22-0400 Body mass index (BMI) [Ratio] 29.52 kg/m2 Raven Masci DO Work Phone: [facility] 01-26-2024 11:22-0400 Body temperature 98.49 [degF] Raven Masci DO Work Phone: [facility] 01-26-2024 11:22-0400 Body weight 78.02 kg Raven Masci DO Work Phone: [facility] 01-26-2024 11:22-0400 Diastolic blood pressure 78 mm[Hg] Raven Masci DO Work Phone: [facility] 01-26-2024 11:22-0400 Heart rate 77 /min Raven Masci DO Work Phone: [facility] 01-26-2024 11:22-0400 SaO2% (BldA) [Mass fraction] 99 % Raven Masci DO Work Phone: [facility] 01-26-2024 11:22-0400 Systolic blood pressure 110 mm[Hg] Raven Masci DO Work Phone: [facility] 12-27-2023 13:48-0400 Body mass index (BMI) [Ratio] 29.52 kg/m2 Raven Masci DO Work Phone: [facility] 12-27-2023 13:48-0400 Body temperature 98.71 [degF] Raven Masci DO Work Phone: [facility] 12-27-2023 13:48-0400 Body weight 78.02 kg Raven Masci DO Work Phone: [facility] 12-27-2023 13:48-0400 Diastolic blood pressure 70 mm[Hg] Raven Masci DO Work Phone: [facility] 12-27-2023 13:48-0400 Heart rate 88 /min Raven East DO Work Phone: [facility] 12-27-2023 13:48-0400 SaO2% (BldA) [Mass fraction] 98 % Raven East DO Work Phone: [facility] 12-27-2023 13:48-0400 Systolic blood pressure 107 mm[Hg] Raven East DO Work Phone: [facility] 12-07-2023 09:33-0400 Body height 160.02 cm Mitul Pappas LPN [facility]. 12-07-2023 09:33-0400 Body mass index (BMI) [Ratio] 31.35 kg/m2 Mitul Pappas TURKEY EGG [employer]ATHERER [facility].; [facility]. 12-07-2023 09:33-0400 Body surface area Derived from formula 1.84 m2 Mitul Pappas [employer]UR[employer] E[employer]ER [facility].; [facility] 12-07-2023 09:33-0400 Body weight 80.29 kg Mitul Mian [facility], [facility].; [facility] 12-07-2023 09:33-0400 Diastolic blood pressure 78 mm[Hg] Mitul Pappas TURKEY E[employer]ER [facility].; [facility], [facility]. Comment on above: Patient Position: Sitting; Cuff Location : Left Arm; Cuff Size: Standard 12-07-2023 09:33-0400 Heart rate 82 /min Mitul Pappas TURKEY EGG GATHERER [facility], [facility].; [facility], [facility]. Comment on above: Pattern: Regular 12-07-2023 09:33-0400 Systolic blood pressure 129 mm[Hg] Mitul Mian [employer]UR[employer] EGG GATHERER [facility], [facility].; [facility], [facility]. Comment on above: Patient Position: Sitting; Cuff Location : Left Arm; Cuff Size: Standard 11-23-2023 10:39-0400 Body mass index (BMI) [Ratio] 30.38 kg/m2 Xiao Perez APRN.[employer]CI[employer]GE Work Phone: [facility] 11-23-2023 10:39-0400 Body temperature 99.5 [degF] Xiao Sainienter CHEESE TESTER.[employer] Work Phone: [facility] 11-23-2023 10:39-0400 Body weight 80.29 kg Xiao Perez CHEESE TESTER.[employer]CI[employer] Work Phone: [facility] 11-23-2023 10:39-0400 Diastolic blood pressure 97 mm[Hg] Xiao Perez CHEESE TESTER.[employer] CONCIER[employer] Work Phone: [facility] 11-23-2023 10:39-0400 Heart rate 87 /min Xiao Sainienter CHEESE TESTER.[employer]CI[employer] Work Phone: [facility] 11-23-2023 10:39-0400 SaO2% (BldA) [Mass fraction] 95 % Xiao Sainienter CHEESE TE[employer]CIER[employer] Work Phone: [facility] 11-23-2023 10:39-0400 Systolic blood pressure 130 mm[Hg] Xiao Sainienter CHEESE TESTER.[employer]CI[employer] Work Phone: [facility] 11-01-2023 11:13-0400 Body mass index (BMI) [Ratio] 30.38 kg/m2 Raven Masci DO Work Phone: [facility] 11-01-2023 11:13-0400 Body temperature 99 [degF] Raven Masci DO Work Phone: [facility] 11-01-2023 11:13-0400 Body weight 80.29 kg Raven Masci DO Work Phone: [facility] 11-01-2023 11:13-0400 Diastolic blood pressure 78 mm[Hg] Raven Masci DO Work Phone: [facility] 11-01-2023 11:13-0400 Heart rate 82 /min Raven Masci DO Work Phone: [facility] 11-01-2023 11:13-0400 SaO2% (BldA) [Mass fraction] 95 % Raven Masci DO Work Phone: [facility] 11-01-2023 11:13-0400 Systolic blood pressure 122 mm[Hg] Raven Masci DO Work Phone: [facility] 10-24-2023 11:31-0400 Body mass index (BMI) [Ratio] 30.12 kg/m2 Caitlin Bravo MD Work Phone: [facility] 10-24-2023 11:31-0400 Body temperature 99 [degF] Caitlin Bravo MD Work Phone: [facility] 10-24-2023 11:31-0400 Body weight 79.61 kg Caitlin Bravo MD Work Phone: [facility] 10-24-2023 11:31-0400 Diastolic blood pressure 74 mm[Hg] Caitlin Bravo MD Work Phone: [facility] 10-24-2023 11:31-0400 Heart rate 83 /min Caitlin Bravo MD Work Phone: [facility] 10-24-2023 11:31-0400 SaO2% (BldA) [Mass fraction] 98 % Caitlin Bravo MD Work Phone: [facility] 10-24-2023 11:31-0400 Systolic blood pressure 114 mm[Hg] Caitlin Bravo MD Work Phone: [facility] 10-17-2023 11:47-0400 Body temperature 98.49 [degF] Caitlin Bravo MD Work Phone: [facility] 10-17-2023 11:47-0400 Diastolic blood pressure 85 mm[Hg] Caitlin Bravo MD Work Phone: [facility] 10-17-2023 11:47-0400 Heart rate 82 /min Caitlin Bravo MD Work Phone: [facility] 10-17-2023 11:47-0400 SaO2% (BldA) [Mass fraction] 96 % Caitlin Bravo MD Work Phone: [facility] 10-17-2023 11:47-0400 Systolic blood pressure 133 mm[Hg] Caitlin Bravo MD Work Phone: [facility] 09-20-2023 10:18-0400 Body temperature 98.8 [degF] Raven Hinojosai DO Work Phone: [facility] 09-20-2023 10:18-0400 Body weight 77.56 kg Raven Hinojosai DO Work Phone: [facility] 09-20-2023 10:18-0400 Diastolic blood pressure 74 mm[Hg] Raven Hinojosai DO Work Phone: [facility] 09-20-2023 10:18-0400 Heart rate 95 /min Raven Hinojosai DO Work Phone: [facility] 09-20-2023 10:18-0400 SaO2% (BldA) [Mass fraction] 99 % Raven Hinojosai DO Work Phone: [facility] 09-20-2023 10:18-0400 Systolic blood pressure 111 mm[Hg] Raven Hinojosai DO Work Phone: [facility] 09-14-2023 07:00-0400 Body temperature 98.1 [degF] Treatment Wstr Work Phone: [facility] 09-14-2023 07:00-0400 Diastolic blood pressure 69 mm[Hg] Treatment Wstr Work Phone: [facility] 09-14-2023 07:00-0400 Heart rate 94 /min Treatment Wstr Work Phone: [facility] 09-14-2023 07:00-0400 Systolic blood pressure 102 mm[Hg] Treatment Wstr Work Phone: [facility] 08-31-2023 10:00-0500 Body temperature 98.1 [degF] Lab/Port Wstr Work Phone: [facility] 08-31-2023 10:00-0500 Diastolic blood pressure 55 mm[Hg] Lab/Port Wstr Work Phone: [facility] 08-31-2023 10:00-0500 Heart rate 91 /min Lab/Port Wstr Work Phone: [facility] 08-31-2023 10:00-0500 Systolic blood pressure 81 mm[Hg] Lab/Port Wstr Work Phone: [facility] 08-30-2023 07:48-0500 Body temperature 98.1 [degF] Treatment Wstr Work Phone: [facility] 08-30-2023 07:48-0500 Diastolic blood pressure 72 mm[Hg] Treatment Wstr Work Phone: [facility] 08-30-2023 07:48-0500 Heart rate 87 /min Treatment Wstr Work Phone: [facility] 08-30-2023 07:48-0500 SaO2% (BldA) [Mass fraction] 98 % Treatment Wstr Work Phone: [facility] 08-30-2023 07:48-0500 Systolic blood pressure 128 mm[Hg] Treatment Wstr Work Phone: [facility] 08-29-2023 08:05-0500 Body temperature 99.19 [degF] Treatment Wstr Work Phone: [facility] 08-29-2023 08:05-0500 Diastolic blood pressure 90 mm[Hg] Treatment Wstr Work Phone: [facility] 08-29-2023 08:05-0500 Heart rate 84 /min Treatment Wstr Work Phone: [facility] 08-29-2023 08:05-0500 Respiratory rate 16 /min Treatment Wstr Work Phone: [facility] 08-29-2023 08:05-0500 SaO2% (BldA) [Mass fraction] 97 % Treatment Wstr Work Phone: [facility] 08-29-2023 08:05-0500 Systolic blood pressure 150 mm[Hg] Treatment Wstr Work Phone: [facility] 08-24-2023 11:45-0500 Body temperature 98.49 [degF] Raven East DO Work Phone: [facility] 08-24-2023 11:45-0500 Body weight 76.89 kg Raven East DO Work Phone: [facility] 08-24-2023 11:45-0500 Diastolic blood pressure 61 mm[Hg] Raven Masci DO Work Phone: [facility] 08-24-2023 11:45-0500 Heart rate 102 /min Raven Masci DO Work Phone: [facility] 08-24-2023 11:45-0500 SaO2% (BldA) [Mass fraction] 99 % Raven Masci DO Work Phone: [facility] 08-24-2023 11:45-0500 Systolic blood pressure 97 mm[Hg] Raven Masci DO Work Phone: [facility] 08-18-2023 12:07-0500 Body temperature 97.7 [degF] [facility] 08-18-2023 12:07-0500 Diastolic blood pressure 60 mm[Hg] [facility] 08-18-2023 12:07-0500 Heart rate 88 /min [facility] 08-18-2023 12:07-0500 Respiratory rate 16 /min [facility] 08-18-2023 12:07-0500 SaO2% (BldA) [Mass fraction] 100 % [facility] 08-18-2023 12:07-0500 Systolic blood pressure 107 mm[Hg] [facility] 08-18-2023 09:13-0500 Body height 160.66 cm [facility] 08-18-2023 09:13-0500 Body mass index (BMI) [Ratio] 29 kg/m2 [facility] 08-18-2023 09:13-0500 Body weight 74.84 kg [facility] 08-17-2023 11:03-0500 Body temperature 98.71 [degF] Raven Masci DO Work Phone: [facility] 08-17-2023 11:03-0500 Body weight 75.07 kg Raven Masci DO Work Phone: [facility] 08-17-2023 11:03-0500 Diastolic blood pressure 58 mm[Hg] Raven Masci DO Work Phone: [facility] 08-17-2023 11:03-0500 Heart rate 95 /min Raven Masci DO Work Phone: [facility] 08-17-2023 11:03-0500 SaO2% (BldA) [Mass fraction] 99 % Raven Masci DO Work Phone: [facility] 08-17-2023 11:03-0500 Systolic blood pressure 99 mm[Hg] Raven Masci DO Work Phone: [facility] 08-03-2023 13:58-0500 Body temperature 98.1 [degF] Lab/Port Wstr Work Phone: [facility] 08-03-2023 13:58-0500 Diastolic blood pressure 67 mm[Hg] Lab/Port [facility]str Work Phone: [facility] 08-03-2023 13:58-0500 Heart rate 88 /min Lab/Port Wstr Work Phone: [facility] 08-03-2023 13:58-0500 SaO2% (BldA) [Mass fraction] 99 % Lab/Port [facility]str Work Phone: [facility] 08-03-2023 13:58-0500 Systolic blood pressure 124 mm[Hg] Lab/Port Wstr Work Phone: [facility] 06-02-2023 14:02-0500 Body temperature 98.1 [degF] Raven Masci DO Work Phone: [facility] 06-02-2023 14:02-0500 Body weight 73.03 kg Raven Masci DO Work Phone: [facility] 06-02-2023 14:02-0500 Diastolic blood pressure 74 mm[Hg] Raven Masci DO Work Phone: [facility] 06-02-2023 14:02-0500 Heart rate 58 /min Raven Masci DO Work Phone: [facility] 06-02-2023 14:02-0500 SaO2% (BldA) [Mass fraction] 98 % Raven Masci DO Work Phone: [facility] 06-02-2023 14:02-0500 Systolic blood pressure 134 mm[Hg] Raven Masci DO Work Phone: [facility] 06-02-2023 13:20-0500 Body temperature 98.29 [degF] Caitlin Bravo MD, MD Work Phone: [facility] 06-02-2023 13:20-0500 Body weight 73.26 kg Caitlin Bravo MD, MD Work Phone: [facility] 06-02-2023 13:20-0500 Diastolic blood pressure 65 mm[Hg] Caitlin Bravo MD, MD Work Phone: [facility] 06-02-2023 13:20-0500 Heart rate 60 /min Caitlin Bravo MD, MD Work Phone: [facility] 06-02-2023 13:20-0500 SaO2% (BldA) [Mass fraction] 98 % Caitlin Bravo MD, MD Work Phone: [facility] 06-02-2023 13:20-0500 Systolic blood pressure 125 mm[Hg] Caitlin Bravo MD, MD Work Phone: [facility] 06-01-2023 09:46-0500 Body height 162.6 cm Raven Masci DO Work Phone: [facility] 06-01-2023 09:46-0500 Body temperature 97.81 [degF] Raven Masci DO Work Phone: [facility] 06-01-2023 09:46-0500 Body weight 73.26 kg Raven Masci DO Work Phone: [facility] 06-01-2023 09:46-0500 Diastolic blood pressure 78 mm[Hg] Raven Masci DO Work Phone: [facility] 06-01-2023 09:46-0500 Heart rate 64 /min Raven Masci DO Work Phone: [facility] 06-01-2023 09:46-0500 Respiratory rate 16 /min Raven Masci DO Work Phone: [facility] 06-01-2023 09:46-0500 SaO2% (BldA) [Mass fraction] 97 % Raven East DO Work Phone: [facility] 06-01-2023 09:46-0500 Systolic blood pressure 122 mm[Hg] Raven East DO Work Phone: [facility] 09-13-2022 14:26-0400 Body temperature 96 [degF] Mitul Pappas LPN [facility], [employer]. 09-13-2022 14:26-0400 Diastolic blood pressure 87 mm[Hg] Mitul Pappas LPN [facility], [facility].; [facility], [employer]. Comment on above: Patient Position: Sitting; Cuff Location : Left Arm; Cuff Size: Standard 09-13-2022 14:26-0400 Heart rate 76 /min Mitul Pappas LPN [facility], [employer]. Comment on above: Pattern: Regular 09-13-2022 14:26-0400 Systolic blood pressure 163 mm[Hg] Mitul Pappas LPN [facility], [employer]. Comment on above: Patient Position: Sitting; Cuff Location : Left Arm; Cuff Size: Standard 06-29-2022 11:28-050 Body height 160.02 cm Keely Lozano MA [facility] [employer], [employer]. 06-29-2022 11:28-0500 Body mass index (BMI) [Ratio] 30.11 kg/m2 Keely Lozano MA [facility], [employer]. 06-29-2022 11:28-0500 Body surface area Derived from formula 1.8 m2 Keely Lozano MA [facility], [employer]. 06-29-2022 11:28-0500 Body temperature 96.4 [degF] Keely Lozano MA [facility], [employer]. 06-29-2022 11:28-0500 Body weight 77.11 kg Keely Lozano MA [facility], [facility].; [employer], [employer]. 06-29-2022 11:28-0500 Diastolic blood pressure 85 mm[Hg] Keely Lozano MA [facility] [employer]. Comment on above: Patient Position: Sitting; Cuff Location : Left Arm; Cuff Size: Standard 06-29-2022 11:28-0500 Heart rate 73 /min Keely Lozano MA [facility] [employer]. Comment on above: Pattern: Regular 06-29-2022 11:28-0500 Systolic blood pressure 147 mm[Hg] Keely Lozano MA [place] [employer] [facility], [facility] [employer], [employer]. Comment on above: Patient Position: Sitting; Cuff Location : Left Arm; Cuff Size: Standard 06-06-2022 13:33-0500 Body height 160.02 cm Werner Ng ANGELLA [facility] [employer]. 06-06-2022 13:33-0500 Body mass index (BMI) [Ratio] 30.29 kg/m2 Jennifer Stuckey [facility] [employer] 06-06-2022 13:33-0500 Body surface area Derived from formula 1.81 m2 Jennifer Harleigh TUR[employer] EGG GATHERER [facility], [employer]. 06-06-2022 13:33-0500 Body temperature 97.9 [degF] JenniferGayatri Ng TURKEY EGG GATHERER [facility] [employer]. Comment on above: Method: Tympanic 06-06-2022 13:33-0500 Body weight 77.57 kg Werner Ng TURKEY EGG GATHERER [facility] [employer], [employer]. 06-06-2022 13:33-0500 Diastolic blood pressure 87 mm[Hg] Werner Ng TURKEY EGG GATHERER [place] [employer] [facility], [employer].; [employer], [employer]. Comment on above: Patient Position: Sitting; Cuff Location : Left Arm; Cuff Size: Large 06-06-2022 13:33-0500 Heart rate 64 /min Werner Ng ANGELLA [facility], [employer].; [employer]. Comment on above: Pattern: Regular 06-06-2022 13:33-0500 Inhaled oxygen concentration 20 % Werner Ng [facility] [place] [employer] [facility], [employer]. Comment on above: Room air 06-06-2022 13:33-0500 Inhaled oxygen concentration 21 % Werner Ng TURKEY EGG GATHERER [facility] [place] [employer], [employer]. Comment on above: Room air 06-06-2022 13:33-0500 SaO2% (BldA) [Mass fraction] 96 % Werner Ng [facility], [facility].; [place] [employer] [facility], [employer]. 06-06-2022 13:33-0500 Systolic blood pressure 161 mm[Hg] Werner Ng [facility], [facility].; [place] [employer], [employer]. Comment on above: Patient Position: Sitting; Cuff Location : Left Arm; Cuff Size: Large 04-04-2022 15:28-0400 Body height 160.02 cm Werner Ng [facility], [facility].; [place] [employer] [facility], [employer]. 04-04-2022 15:28-0400 Body mass index (BMI) [Ratio] 29.41 kg/m2 [facility] Hernandez [facility], [facility].; [place] [employer] [facility], [employer]. 04-04-2022 15:28-0400 Body surface area Derived from formula 1.79 m2 [facility] Hernandez [facility], [facility].; [place] [employer] [facility], [employer]. 04-04-2022 15:28-0400 Body weight 75.3 kg Jennifer Stuckey [facility], [facility].; [employer], [employer]. 04-04-2022 15:28-0400 Diastolic blood pressure 91 mm[Hg] Jennifer Stuckey [facility], [facility].; [employer], [employer]. Comment on above: Patient Position: Sitting; Cuff Location : Left Arm; Cuff Size: Large 04-04-2022 15:28-0400 Heart rate 75 /min JenniferGayatri gN [facility], [facility].; [employer] Comment on above: Pattern: Regular 04-04-2022 15:28-0400 Systolic blood pressure 155 mm[Hg] Werner Ng LPN [facility] [place] [employer], [employer]. Comment on above: Patient Position: Sitting; Cuff Location : Left Arm; Cuff Size: Large 02-21-2022 11:12040 Body height 160.02 cm Werner Ng LPN [facility] [place] [employer], [employer]. 02-21-2022 11:120400 Body mass index (BMI) [Ratio] 29.58 kg/m2 Werner Ng TURKEY EGG GATHERER [facility], [facility].; [place] [employer], [employer]. 02-21-2022 11:12040 Body surface area Derived from formula 1.79 m2 Werner Ng TURKEY EGG GATHERER [facility], [facility].; [place] [employer], [employer]. 02-21-2022 11:120400 Body temperature 97 [degF] Werner Ng [facility], [facility].; [employer], [employer]. Comment on above: Method: Tympanic 02-21-2022 11:12040 Body weight 75.75 kg Werner Ng LPN [facility], [facility].; [place] [employer], [employer]. 02-21-2022 11:12040 Diastolic blood pressure 89 mm[Hg] Werner Ng LPN [facility], [facility].; [facility], [employer]. Comment on above: Patient Position: Sitting; Cuff Location : Left Arm; Cuff Size: Large 02-21-2022 11:120400 Heart rate 71 /min Werner Ng TUR[employer] EGG GATHERER [facility], [facility].; [employer]. Comment on above: Pattern: Regular 02-21-2022 11:120400 Inhaled oxygen concentration 20 % JenniferGayatri Ng [facility], [facility].; [employer] Comment on above: Room air 02-21-2022 11:120400 Inhaled oxygen concentration 21 % Werner Ng LPN [facility] [employer], [employer]. Comment on above: Room air 02-21-2022 11:120400 SaO2% (BldA) [Mass fraction] 98 % [facility] [employer]. 02-21-2022 11:12-0400 Systolic blood pressure 167 mm[Hg] Werner [facility] [employer]. Comment on above: Patient Position: Sitting; Cuff Location : Left Arm; Cuff Size: Large 01-12-2022 14:24040 Body height 160.02 cm [facility] Wallace [facility] [employer]. 01-12-2022 14:24-0400 Body mass index (BMI) [Ratio] 29.94 kg/m2 Tari Naranjor [facility].; [employer]. 01-12-2022 14:24040 Body surface area Derived from formula 1.8 m2 Tari Naranjor [facility].; [employer]. 01-12-2022 14:24040 Body temperature 97.3 [degF] [facility].; [employer]. Comment on above: Method: Tympanic 01-12-2022 14:24040 Body weight 76.66 kg Tari Wallace [facility] [employer]. 01-12-2022 14:24-0400 Diastolic blood pressure 70 mm[Hg] Tari Naranjor [facility] [employer].; [employer]. Comment on above: Patient Position: Sitting; Cuff Location : Right Arm; Cuff Size: Standard 01-12-2022 14:24-0400 Heart rate 76 /min Tari Wallace [employer]. Comment on above: Pattern: Regular 01-12-2022 14:24-0400 Inhaled oxygen concentration 20 % [facility]aranjor [facility].; [employer]. Comment on above: Room air 01-12-2022 14:24-0400 Inhaled oxygen concentration 21 % [facility]ari [facility]aranjor [facility].; [employer]. Comment on above: Room air 01-12-2022 14:24-0400 SaO2% (BldA) [Mass fraction] 98 % Tari Wallace [facility], [facility].; [facility] [facility], [employer]. 01-12-2022 14:24-0400 Systolic blood pressure 109 mm[Hg] Tari Wallace [facility], [facility].; [employer]. Comment on above: Patient Position: Sitting; Cuff Location : Right Arm; Cuff Size: Standard 11-15-2021 08:13-0400 Body height 160.02 cm Werner Ng [facility], [facility].; [place] [employer], [employer]. 11-15-2021 08:13-0400 Body mass index (BMI) [Ratio] 29.05 kg/m2 Jennifer Hernandez [facility], [facility].; [employer], [employer]. 11-15-2021 08:13-0400 Body surface area Derived from formula 1.78 m2 [facility] Hernandez [facility], [facility].; [employer], [employer]. 11-15-2021 08:13-0400 Body weight 74.39 kg Werner Ng [facility], [facility].; [employer], [employer]. 11-15-2021 08:13-0400 Diastolic blood pressure 83 mm[Hg] Werner Ng [facility].; [employer]. Comment on above: Patient Position: Sitting; Cuff Location : Left Arm; Cuff Size: Large 11-15-2021 08:13-0400 Heart rate 64 /min Werner Ng [facility], [facility].; [employer]. Comment on above: Pattern: Regular 11-15-2021 08:13-0400 Systolic blood pressure 144 mm[Hg] JenniferGayatri Ng [facility], [facility].; [employer]. Comment on above: Patient Position: Sitting; Cuff Location : Left Arm; Cuff Size: Large 07-09-2021 15:30-0500 Body height 160.02 cm Tari Wallace [facility], [facility].; [employer] 07-09-2021 15:30-0500 Body mass index (BMI) [Ratio] 29.07 kg/m2 [facility]ari Wallace [facility] [employer] 07-09-2021 15:30-0500 Body surface area Derived from formula 1.78 m2 Tari Wallace [email or web address].; [employer] 07-09-2021 15:30-0500 Body temperature 98.7 [degF] Tari Wallace [facility] [employer] Comment on above: Method: Tympanic 07-09-2021 15:30-0500 Body weight 74.45 kg Tari Wallace [facility] [place] [employer]. 07-09-2021 15:30-0500 Diastolic blood pressure 78 mm[Hg] Tari Wallace [facility] [employer]. Comment on above: Patient Position: Sitting; Cuff Location : Right Arm; Cuff Size: Standard 07-09-2021 15:30-0500 Heart rate 64 /min Tari Wallace [facility] [employer]. Comment on above: Pattern: Regular 07-09-2021 15:30-0500 Inhaled oxygen concentration 20 % Tari Wallace [facility] [employer] Comment on above: Room air 07-09-2021 15:30-0500 Inhaled oxygen concentration 21 % Tari Wallace [facility] [employer]. Comment on above: Room air 07-09-2021 15:30-0500 SaO2% (BldA) [Mass fraction] 99 % Tari Wallace [facility].; [employer] 07-09-2021 15:30-0500 Systolic blood pressure 133 mm[Hg] Tari Wallace [facility] [employer]. Comment on above: Patient Position: Sitting; Cuff Location : Right Arm; Cuff Size: Standard 06-02-2021 08:46-0500 Body height 160.02 cm Kacey Jovel LPN [facility] [place] [employer]. 06-02-2021 08:46-0500 Body mass index (BMI) [Ratio] 29.41 kg/m2 Kacye Jovel TUR[employer] E[employer] GATHERER [facility] [place] [employer] [facility], [facility]. 06-02-2021 08:46-0500 Body surface area Derived from formula 1.79 m2 Kacey Jovel [employer] [facility] [place] [employer] [facility], [facility]. 06-02-2021 08:46-0500 Body temperature 97.9 [degF] Kacey Jovel [employer]UR[employer] E[employer] [facility], [facility].; [employer], [employer]. Comment on above: Method: Tympanic 06-02-2021 08:46-0500 Body weight 75.3 kg Kacey Jovel LPN [facility], [facility].; [place] [employer] [facility], [facility]. 06-02-2021 08:46-0500 Diastolic blood pressure 73 mm[Hg] Kacey Jovel [employer]UR[employer] E[employer]ATH[employer] [facility], [facility].; [employer], [employer]. Comment on above: Patient Position: Sitting; Cuff Location : Left Arm; Cuff Size: Standard 06-02-2021 08:46-0500 Heart rate 64 /min Kacey Jovel [employer]ATH[employer] [facility] [employer] [facility], [employer]. Comment on above: Pattern: Regular 06-02-2021 08:46-0500 Inhaled oxygen concentration 20 % Kacey Jovel [employer] [facility] [place] [employer] [facility], [facility] Comment on above: Room air 06-02-2021 08:46-0500 Inhaled oxygen concentration 21 % Kacey Jovel [employer]ATH[employer] [facility] [employer], [employer]. Comment on above: Room air 06-02-2021 08:46-0500 SaO2% (BldA) [Mass fraction] 97 % Kacey Jovel [facility], [facility].; [employer], [employer]. 06-02-2021 08:46-0500 Systolic blood pressure 162 mm[Hg] Kacey Steeleugg [employer] E[employer] GATH[employer]ER [facility], [facility].; [employer], [employer]. Comment on above: Patient Position: Sitting; Cuff Location : Left Arm; Cuff Size: Standard 01-25-2021 08:57-0400 Body height 160.02 cm Werner Ng LPN [facility] [place] [employer] [facility], [facility] 01-25-2021 08:57-0400 Body mass index (BMI) [Ratio] 29.23 kg/m2 Werner Ng [employer] [facility].; [place] [employer] [facility], [facility] 01-25-2021 08:57-0400 Body surface area Derived from formula 1.78 m2 Werner Ng TUR[employer] E[employer] G[employer] [facility].; [employer] [facility], [facility] 01-25-2021 08:57-0400 Body weight 74.84 kg Werner Ng TUR[employer] [facility].; [employer] [facility], [facility] 01-25-2021 08:57-0400 Diastolic blood pressure 83 mm[Hg] Werner Ng [employer]UR[employer] E[employer]ER [facility].; [employer] Comment on above: Patient Position: Sitting; Cuff Location : Left Arm; Cuff Size: Large 01-25-2021 08:57-0400 Heart rate 71 /min Werner Ng TUR[employer] [facility], [employer] Comment on above: Pattern: Regular 01-25-2021 08:57-0400 Systolic blood pressure 167 mm[Hg] Werner Ng [employer]UR[employer] [facility], [employer] Comment on above: Patient Position: Sitting; Cuff Location : Left Arm; Cuff Size: Large 01-11-2021 13:11-0400 Body height 160.02 cm Werner Ng TUR[employer]ATH[employer] [facility].; [place] [employer] [facility], [facility] 01-11-2021 13:11-0400 Body mass index (BMI) [Ratio] 28.52 kg/m2 Werner Ng [facility], [facility] 01-11-2021 13:11-0400 Body surface area Derived from formula 1.76 m2 Werner Ng [employer] [facility], [employer] 01-11-2021 13:11-0400 Body weight 73.03 kg Werner Ng TUR[employer] [place] [employer]. 01-11-2021 13:11-0400 Diastolic blood pressure 89 mm[Hg] Werner Ng LPN [place] [employer] [facility], [employer].; [employer]. Comment on above: Patient Position: Sitting; Cuff Location : Left Arm; Cuff Size: Large 01-11-2021 13:11-0400 Heart rate 72 /min Werner Ng TUR[employer] [place] [employer] [facility], [facility].; [employer]. Comment on above: Pattern: Regular 01-11-2021 13:11-0400 Systolic blood pressure 155 mm[Hg] Werner Ng TUR[employer] EGG [employer]ATH[employer] [facility], [employer].; [employer]. Comment on above: Patient Position: Sitting; Cuff Location : Left Arm; Cuff Size: Large 10-09-2020 08:56-0400 Body height 160.02 cm Yasmin Winter RN [place] [employer], [employer].; [employer]. 10-09-2020 08:56-0400 Body mass index (BMI) [Ratio] 28.87 kg/m2 Yasmin Winter RN [place] [facility].; [employer]. 10-09-2020 08:56-0400 Body surface area Derived from formula 1.77 m2 Yasmin Winter RN [place] [employer].; [employer], [employer]. 10-09-2020 08:56-0400 Body temperature 97.2 [degF] Yasmin Winter RN [place] [employer].; [employer]. Comment on above: Method: Tympanic 10-09-2020 08:56-0400 Body weight 73.94 kg Yasmin Winter RN [place] [employer].; [employer]. 10-09-2020 08:56-0400 Diastolic blood pressure 75 mm[Hg] Yasmin Winter RN [place] [employer].; [employer]. Comment on above: Patient Position: Sitting; Cuff Location : Right Arm; Cuff Size: Standard 10-09-2020 08:56-0400 Heart rate 67 /min Yasmin Winter RN [place] [employer].; [employer] Comment on above: Pattern: Regular 10-09-2020 08:56-0400 Inhaled oxygen concentration 20 % [facility] [employer]. Comment on above: Room air 10-09-2020 08:56-0400 Inhaled oxygen concentration 21 % Yasmin [facility].; [employer] Comment on above: Room air 10-09-2020 08:56-0400 SaO2% (BldA) [Mass fraction] 96 % Yasmin Winter RN [place] [employer] [facility].; [employer] 10-09-2020 08:56-0400 Systolic blood pressure 129 mm[Hg] Yasmin Winter RN [email or web address].; [employer]. Comment on above: Patient Position: Sitting; Cuff Location : Right Arm; Cuff Size: Standard 09-04-2020 14:16-0500 Body height 160.02 cm Yasmin Winter RN [place] [employer] [email or web address].; [employer]. 09-04-2020 14:16-0500 Body mass index (BMI) [Ratio] 28.34 kg/m2 Yasmin Winter RN [place] [employer] [facility].; [employer] 09-04-2020 14:16-0500 Body surface area Derived from formula 1.76 m2 Yasmin Winter RN [place] [employer] [facility].; [employer]. 09-04-2020 14:16-0500 Body temperature 97.8 [degF] Yasmin Winter RN [employer].; [employer]. Comment on above: Method: Tympanic 09-04-2020 14:16-0500 Body weight 72.58 kg Yasmin Winter RN [place] [employer] [facility].; [employer]. 09-04-2020 14:16-0500 Diastolic blood pressure 72 mm[Hg] Yasmin Winter RN [place] [employer] [facility].; [employer] Comment on above: Patient Position: Sitting; Cuff Location : Right Arm; Cuff Size: Standard 09-04-2020 14:16-0500 Heart rate 76 /min Yasmin Winter RN [facility], [employer].; [employer]. Comment on above: Pattern: Regular 09-04-2020 14:16-0500 Inhaled oxygen concentration 20 % Yasmin Winter RN [facility] [employer] Comment on above: Room air 09-04-2020 14:16-0500 Inhaled oxygen concentration 21 % Yasmin Winter RN [facility], [facility].; [employer]. Comment on above: Room air 09-04-2020 14:16-0500 SaO2% (BldA) [Mass fraction] 99 % Yasmin Winter RN [facility], [employer].; [employer], [employer]. 09-04-2020 14:16-0500 Systolic blood pressure 135 mm[Hg] Yasmin Winter RN [facility], [employer].; [employer], [employer]. Comment on above: Patient Position: Sitting; Cuff Location : Right Arm; Cuff Size: Standard 07-20-2020 15:23-0500 Body height 160.02 cm Werner Ng LPN [facility], [employer].; [employer], [employer]. 07-20-2020 15:23-0500 Body temperature 97.8 [degF] Werner Ng TUR[employer] [facility], [employer].; [employer], [employer]. Comment on above: Method: Tympanic 07-20-2020 15:23-0500 Inhaled oxygen concentration 20 % Werner Ng LPN [facility] [employer]. Comment on above: Room air 07-20-2020 15:23-0500 Inhaled oxygen concentration 21 % Werner Ng [employer]UR[employer] [facility], [employer].; [employer]. Comment on above: Room air 07-20-2020 15:23-0500 SaO2% (BldA) [Mass fraction] 99 % Werner Ng LPN [facility] [employer] 05-25-2020 09:09-0500 Body height 160.02 cm Werner Ng TUR[employer] EGG GATH[employer] [facility], [facility].; [place] [employer] [facility], [facility] 05-25-2020 09:09-0500 Body temperature 97.4 [degF] Werner Ng [facility], [facility].; [place] [employer] [facility], [facility]. Comment on above: Method: Tympanic 05-25-2020 09:09-0500 Diastolic blood pressure 84 mm[Hg] Werner Ng [facility], [facility].; [place] [employer] [facility], [facility] Comment on above: Patient Position: Sitting; Cuff Location : Left Arm; Cuff Size: Large 05-25-2020 09:09-0500 Heart rate 67 /min Werner Ng [facility], [facility].; [place] [employer] [facility], Inc[facility] Comment on above: Pattern: Regular 05-25-2020 09:09-0500 Inhaled oxygen concentration 20 % JenniferGayatri Ng [facility], [facility].; [place] [employer] [facility], [facility] Comment on above: Room air 05-25-2020 09:09-0500 Inhaled oxygen concentration 21 % Werner Ng [facility], [facility].; [place] [employer] [facility], [employer]. Comment on above: Room air 05-25-2020 09:09-0500 SaO2% (BldA) [Mass fraction] 99 % Werner Ng [facility], [facility].; [place] [employer] [facility], [facility] 05-25-2020 09:09-0500 Systolic blood pressure 167 mm[Hg] Werner gN [facility], [facility].; [place] [employer] [facility], [employer]. Comment on above: Patient Position: Sitting; Cuff Location : Left Arm; Cuff Size: Large 10-15-2019 [id number] Body height 160.02 cm Kacey Jovel [facility], [facility].; [place] [employer] [facility], [employer]. 10-15-2019 [id number] Body mass index (BMI) [Ratio] 29.05 kg/m2 Kacey Becka [facility], [facility].; [place] [employer] 10-15-2019 [id number] Body surface area Derived from formula 1.78 m2 Kacey Jovel [employer]UR[employer] E[employer] G[employer] [facility].; [place] [employer] [facility], [facility] 10-15-2019 15:04-0400 Body weight 74.39 kg Kacey Jovel TUR[employer] E[employer] GATH[employer] [facility].; [place] [employer] [facility], [facility] 10-15-2019 15:04-0400 Diastolic blood pressure 86 mm[Hg] Kacey Jovel TUR[employer] EGG GATHERER [facility] [employer], [employer] Comment on above: Patient Position: Sitting; Cuff Location : Left Arm; Cuff Size: Standard 10-15-2019 15:04-0400 Heart rate 83 /min Kacey Jovel TUR[employer] EGG GATHERER [facility] [employer], [employer] Comment on above: Pattern: Regular 10-15-2019 15:04-0400 Systolic blood pressure 145 mm[Hg] Kacey Jovel TUR[employer] EGG GATHERER [facility] [employer], [employer] Comment on above: Patient Position: Sitting; Cuff Location : Left Arm; Cuff Size: Standard 09-24-2019 13:08-0400 Body temperature 97.9 [degF] Werner Ng TUR[employer] EGG GATHER[employer] [facility] [employer], [employer]. Comment on above: Method: Tympanic 09-24-2019 13:08-0400 Diastolic blood pressure 89 mm[Hg] Werner Ng TUR[employer] EGG GATH[employer] [facility] [employer], [employer] Comment on above: Patient Position: Sitting; Cuff Location : Left Arm; Cuff Size: Large 09-24-2019 13:08-0400 Heart rate 74 /min Werner Ng TUR[employer] EGG GATH[employer]ER [facility] [employer], [employer] Comment on above: Pattern: Regular 09-24-2019 13:08-0400 Inhaled oxygen concentration 20 % Werner Ng [facility], [employer]. Comment on above: Room air 09-24-2019 13:08-0400 Inhaled oxygen concentration 21 % Werner Ng TUR[employer] G[employer] [facility] [employer], [employer]. Comment on above: Room air 09-24-2019 13:08-0400 SaO2% (BldA) [Mass fraction] 99 % Werner Ng [facility].; [employer], [employer]. 09-24-2019 13:08-0400 Systolic blood pressure 160 mm[Hg] Werner Ng LPN [facility] [employer], [employer]. Comment on above: Patient Position: Sitting; Cuff Location : Left Arm; Cuff Size: Large 07-15-2019 10:46-0500 Body height 160.02 cm Werner Ng TUR[employer] EGG GATHERER [facility] [place] [employer] [facility], Inc[facility] 07-15-2019 10:46-0500 Body mass index (BMI) [Ratio] 26.93 kg/m2 Werner Ng [facility].; [place] [employer] [facility], [employer]. 07-15-2019 10:46-0500 Body surface area Derived from formula 1.72 m2 Werner Ng [employer]UR[employer] E[employer] [facility].; [employer], [employer]. 07-15-2019 10:46-0500 Body weight 68.95 kg Werner Ng TUR[employer] E[employer] GATHERER [facility] [employer], [employer]. 07-15-2019 10:46-0500 Diastolic blood pressure 70 mm[Hg] Werner Ng [facility].; [employer], [employer]. Comment on above: Patient Position: Sitting; Cuff Location : Left Arm; Cuff Size: Large 07-15-2019 10:46-0500 Heart rate 69 /min Werner Ng [facility], [facility].; [employer], [employer] Comment on above: Pattern: Regular 07-15-2019 10:46-0500 Systolic blood pressure 152 mm[Hg] Werner Ng LPN [facility] [employer], [employer]. Comment on above: Patient Position: Sitting; Cuff Location : Left Arm; Cuff Size: Large 04-05-2019 09:40-0400 Body height 160.02 cm Chinyere Lara MD Work Phone: [facility], [employer].; [employer] 04-05-2019 09:40-0400 Body mass index (BMI) [Ratio] 26.75 kg/m2 Chinyere Lara MD Work Phone: [employer]. 04-05-2019 09:40-0400 Body surface area Derived from formula 1.72 m2 Chinyere Lara MD Work Phone: [employer].; [employer]. 04-05-2019 09:40-0400 Body weight 68.49 kg Chinyere Lara MD Work Phone: [employer].; [employer]. 04-05-2019 09:40-0400 Diastolic blood pressure 83 mm[Hg] Chinyere Lara MD Work Phone: [employer].; [employer]. Comment on above: Patient Position: Sitting; Cuff Location : Left Arm; Cuff Size: Standard 04-05-2019 09:40-0400 Heart rate 63 /min Chinyere Lara MD Work Phone: [employer].; [employer]. Comment on above: Pattern: Regular 04-05-2019 09:40-0400 Systolic blood pressure 144 mm[Hg] Chinyere Lara MD Work Phone: [employer].; [employer]. Comment on above: Patient Position: Sitting; Cuff Location : Left Arm; Cuff Size: Standard 11-23-2018 10:20-0400 Body height 160.02 cm Jing Torres LPN [employer].; [employer]. 11-23-2018 10:20-0400 Body mass index (BMI) [Ratio] 27.99 kg/m2 Jing Torres LPN [employer].; [employer]. 11-23-2018 10:20-0400 Body surface area Derived from formula 1.75 m2 Jing Torres LPN [employer].; [employer]. 11-23-2018 10:20-0400 Body temperature 97.4 [degF] Jing Torres LPN [employer]. 11-23-2018 10:20-0400 Body weight 71.67 kg Jing Torres LPN [employer].; [employer]. 11-23-2018 10:20-0400 Diastolic blood pressure 82 mm[Hg] Jing Torres LPN [facility], [facility].; [employer]. Comment on above: Patient Position: Sitting; Cuff Location : Left Arm; Cuff Size: Standard 11-23-2018 10:20-0400 Heart rate 60 /min Jing Torres LPN [place] [employer] [facility], [facility].; [employer], [employer]. Comment on above: Pattern: Regular 11-23-2018 10:20-0400 Inhaled oxygen concentration 20 % Jing Torres LPN [place] [employer], [employer]. Comment on above: Room air 11-23-2018 10:20-0400 Inhaled oxygen concentration 21 % Jing Torres LPN [facility] [facility], [employer].; [employer], [employer]. Comment on above: Room air 11-23-2018 10:20-0400 SaO2% (BldA) [Mass fraction] 99 % Jing Torres LPN [facility] [employer], [employer]. 11-23-2018 10:20-0400 Systolic blood pressure 135 mm[Hg] Jing Torres LPN [facility], [facility] [employer]. Comment on above: Patient Position: Sitting; Cuff Location : Left Arm; Cuff Size: Standard 11-09-2018 07:41-0400 Body height 160.02 cm Yasmin Winter RN [employer], [employer].; [employer]. 11-09-2018 07:41-0400 Body mass index (BMI) [Ratio] 28.34 kg/m2 Yasmin Winter RN [place] [employer], [employer].; [employer]. 11-09-2018 07:41-0400 Body surface area Derived from formula 1.76 m2 Yasmin Winter RN [employer]. 11-09-2018 07:41-0400 Body weight 72.58 kg Yasmin Winter RN [employer], [employer].; [employer]. 11-09-2018 07:41-0400 Diastolic blood pressure 77 mm[Hg] Yasmin Winter RN [employer].; [employer]. Comment on above: Patient Position: Sitting; Cuff Location : Right Arm; Cuff Size: Standard 11-09-2018 07:41-0400 Heart rate 65 /min Yasmin Winter RN [facility] [employer], [employer]. Comment on above: Pattern: Regular 11-09-2018 07:41-0400 Systolic blood pressure 143 mm[Hg] Yasmin Winter RN [facility] [employer], [employer]. Comment on above: Patient Position: Sitting; Cuff Location : Right Arm; Cuff Size: Standard 03-14-2018 07:50-0400 Body height 160.02 cm JenniferGayatri Ng LPN [facility] [employer] 03-14-2018 07:50-0400 Body mass index (BMI) [Ratio] 27.46 kg/m2 JenniferGayatri Ng LPN [facility].; [employer] [facility], [facility] 03-14-2018 07:50-0400 Body surface area Derived from formula 1.74 m2 Jennifermisa Ng LPN [facility] [employer] 03-14-2018 07:50-0400 Body weight 70.31 kg JenniferGayatri Ng LPN [facility] [employer] 03-14-2018 07:50-0400 Diastolic blood pressure 84 mm[Hg] JenniferGayatri Ng LPN [facility] [employer] Comment on above: Patient Position: Sitting; Cuff Location : Left Arm; Cuff Size: Large 03-14-2018 07:50-0400 Heart rate 61 /min JenniferGayatri Ng LPN [facility] [employer], [employer]. Comment on above: Pattern: Regular 03-14-2018 07:50-0400 Systolic blood pressure 151 mm[Hg] Werner Ng LPN [facility] [employer], [employer]. Comment on above: Patient Position: Sitting; Cuff Location : Left Arm; Cuff Size: Large 02-20-2018 09:14-0400 Body height 160.02 cm Yasmin Winter RN [facility] [employer]. 02-20-2018 09:14-0400 Body mass index (BMI) [Ratio] 27.63 kg/m2 Yasmin Winter RN [place] [employer].; [employer] 02-20-2018 09:14-0400 Body surface area Derived from formula 1.74 m2 Yasmin Winter RN [facility] [employer] 02-20-2018 09:14-0400 Body temperature 97.8 [degF] Yasmin Winter RN [employer]. Comment on above: Method: Tympanic 02-20-2018 09:14-0400 Body weight 70.76 kg Yasmin Winter RN [employer].; [employer] 02-20-2018 09:14-0400 Diastolic blood pressure 75 mm[Hg] Yasmin Winter RN [employer]. Comment on above: Patient Position: Sitting; Cuff Location : Left Arm; Cuff Size: Standard 02-20-2018 09:14-0400 Heart rate 52 /min Yasmin Winter RN [employer]. Comment on above: Pattern: Regular 02-20-2018 09:14-0400 Systolic blood pressure 128 mm[Hg] Yasmin Winter RN [employer]. Comment on above: Patient Position: Sitting; Cuff Location : Left Arm; Cuff Size: Standard 10-04-2017 08:03-0400 Body height 165.74 cm Werner Ng LPN [facility] [employer]. 10-04-2017 08:03-0400 Body mass index (BMI) [Ratio] 27.41 kg/m2 Werner Ng LPN [employer] 10-04-2017 08:03-0400 Body surface area Derived from formula 1.83 m2 Werner Ng LPN [facility], [facility] [employer]. 10-04-2017 08:03-0400 Body weight 75.3 kg Werner Ng [employer] [facility], [facility].; [employer] 10-04-2017 08:03-0400 Diastolic blood pressure 73 mm[Hg] Werner Ng [employer] [facility] [employer] [facility], [facility].; [employer] Comment on above: Patient Position: Sitting; Cuff Location : Left Arm; Cuff Size: Large 10-04-2017 08:03-0400 Systolic blood pressure 127 mm[Hg] Werner Ng TUR[employer] [place] [employer] [facility], [facility].; [employer] Comment on above: Patient Position: Sitting; Cuff Location : Left Arm; Cuff Size: Large 07-14-2017 10:28-0500 Body weight 79.38 kg Jerrica Chatman LPN [facility] [employer] [facility], [facility].; [employer] 07-14-2017 10:28-0500 Diastolic blood pressure 79 mm[Hg] Jerrica Chatman LPN [facility] [employer] Comment on above: Patient Position: Sitting; Cuff Location : Left Arm; Cuff Size: Standard 07-14-2017 10:28-0500 Heart rate 78 /min Jerrica Chatman LPN [facility] [employer] [facility], [facility].; [employer] Comment on above: Pattern: Regular 07-14-2017 10:28-0500 Systolic blood pressure 128 mm[Hg] Jerrica Chatman LPN [facility] [employer] Comment on above: Patient Position: Sitting; Cuff Location : Left Arm; Cuff Size: Standard 05-26-2017 09:47-0500 Body height 165.74 cm Jerrica Chatman LPN [facility] [employer] [facility], Inc.; [employer] 05-26-2017 09:47-0500 Body mass index (BMI) [Ratio] 28.9 kg/m2 Jerrica Chatman LPN [facility] [employer] [facility], [facility].; [employer] 05-26-2017 09:47-0500 Body surface area Derived from formula 1.87 m2 Jerrica Chatman LPN [facility] [employer] [facility], [facility].; [employer] 05-26-2017 09:47-0500 Body weight 79.38 kg Jerrica Chatman ANGELLA [facility].; [employer] 05-26-2017 09:47-0500 Diastolic blood pressure 80 mm[Hg] Jerrica Chatman [facility], [facility].; [employer] Comment on above: Patient Position: Sitting; Cuff Location : Left Arm; Cuff Size: Standard 05-26-2017 09:47-0500 Heart rate 84 /min Jerrica Chatman [employer] [facility] [employer] Comment on above: Pattern: Regular 05-26-2017 09:47-0500 Systolic blood pressure 148 mm[Hg] Jerrica Chatman [facility], [facility].; [employer] Comment on above: Patient Position: Sitting; Cuff Location : Left Arm; Cuff Size: Standard 03-07-2017 13:15-0400 Body height 160.02 cm Jennifer Hernandez [facility], [facility].; [employer] 03-07-2017 13:15-0400 Body mass index (BMI) [Ratio] 29.05 kg/m2 [facility] Hernandez [facility], [facility].; [employer] 03-07-2017 13:15-0400 Body surface area Derived from formula 1.78 m2 [facility] Harleigh [facility] [employer] 03-07-2017 13:15-0400 Body weight 74.39 kg [facility] Hernandez [facility], [facility].; [employer] 03-07-2017 13:15-0400 Diastolic blood pressure 75 mm[Hg] Jennifer Hernandez [facility] [employer] Comment on above: Patient Position: Sitting; Cuff Location : Left Arm; Cuff Size: Large 03-07-2017 13:15-0400 Heart rate 86 /min Jennifer Hernandez [facility], [facility].; [employer] Comment on above: Pattern: Regular 03-07-2017 13:15-0400 Systolic blood pressure 118 mm[Hg] Jennifer Hernandez [facility], [facility].; [employer] Comment on above: Patient Position: Sitting; Cuff Location : Left Arm; Cuff Size: Large 01-12-2017 09:59-0400 Body height 160.02 cm Татьяна Lundbergem PERALES [facility], Inc.; [employer] 01-12-2017 09:59-0400 Body mass index (BMI) [Ratio] 27.99 kg/m2 Татьяна Harinder PERALES [place] [facility], Inc.; [facility] 01-12-2017 09:59-0400 Body surface area Derived from formula 1.75 m2 Татьяна Harinder PERALES [place] [employer] [facility], [facility] 01-12-2017 09:59-0400 Body weight 71.67 kg Татьяна Harinder PERALES [place] [facility], Inc.; [employer] 01-12-2017 09:59-0400 Diastolic blood pressure 84 mm[Hg] Татьяна Harinder PERALES [place] [employer] Comment on above: Patient Position: Sitting; Cuff Location : Left Arm; Cuff Size: Standard 01-12-2017 09:59-0400 Heart rate 66 /min Татьянаbg Pizano LPN [place] [facility], Inc.; [employer] Comment on above: Pattern: Regular 01-12-2017 09:59-0400 Systolic blood pressure 144 mm[Hg] Татьяна Harinder PERALES [place] [facility], Inc.; [employer] Comment on above: Patient Position: Sitting; Cuff Location : Left Arm; Cuff Size: Standard 10-26-2016 09:38-0400 Body height 160.02 cm Werner Mendieta Hernandez PERALES [place] [employer] 10-26-2016 09:38-0400 Body mass index (BMI) [Ratio] 27.28 kg/m2 JenniferGayatri Ng LPN [place] [facility], Inc.; [employer] 10-26-2016 09:38-0400 Body surface area Derived from formula 1.73 m2 JenniferGayatri Ng LPN [place] [employer] 10-26-2016 09:38-0400 Body weight 69.85 kg Werner Ng [facility] [employer], [employer] 10-26-2016 09:38-0400 Diastolic blood pressure 83 mm[Hg] Werner Ng [employer] Comment on above: Patient Position: Sitting; Cuff Location : Left Arm; Cuff Size: Large 10-26-2016 09:38-0400 Heart rate 74 /min Werner Ng [facility] [employer] Comment on above: Pattern: Regular 10-26-2016 09:38-0400 Systolic blood pressure 130 mm[Hg] Werner Ng [facility] [employer] Comment on above: Patient Position: Sitting; Cuff Location : Left Arm; Cuff Size: Large 10-13-2016 10:37-0400 Body height 160.02 cm Chinyere Lara MD Work Phone: [employer] 10-13-2016 10:37-0400 Body mass index (BMI) [Ratio] 27.46 kg/m2 Chinyere Lara MD Work Phone: [employer] 10-13-2016 10:37-0400 Body surface area Derived from formula 1.74 m2 Chinyere Lara MD Work Phone: [employer].; [employer] 10-13-2016 10:37-0400 Body temperature 97.9 [degF] Chinyere Lara MD Work Phone: [employer]. Comment on above: Method: Tympanic 10-13-2016 10:37-0400 Body weight 70.31 kg Chinyere Lara MD Work Phone: [employer] 10-13-2016 10:37-0400 Diastolic blood pressure 85 mm[Hg] Chinyere Lara MD Work Phone: [facility] [employer]. Comment on above: Patient Position: Sitting; Cuff Location : Left Arm; Cuff Size: Standard 10-13-2016 10:37-0400 Heart rate 57 /min Chinyere Lara MD Work Phone: [facility], [employer]. Comment on above: Pattern: Regular 10-13-2016 10:37-0400 Systolic blood pressure 149 mm[Hg] Chinyere Lara MD Work Phone: [place] [facility] [employer]. Comment on above: Patient Position: Sitting; Cuff Location : Left Arm; Cuff Size: Standard 08-31-2016 09:13-0500 Body height 160.02 cm Werner Ng ANGELLA [facility], Inc.; [employer] 08-31-2016 09:13-0500 Body mass index (BMI) [Ratio] 27.81 kg/m2 Werner Mendieta Harleigh ANGELLA [facility], Inc.; [employer] 08-31-2016 09:13-0500 Body surface area Derived from formula 1.74 m2 Werner Cuevasuckey [employer] [place] [facility], Inc.; [employer], [employer]. 08-31-2016 09:13-0500 Body weight 71.22 kg Werner Ng ANGELLA [place] [facility], Inc.; [employer] 08-31-2016 09:13-0500 Diastolic blood pressure 87 mm[Hg] Werner Ng ANGELLA [place] [facility], Inc.; [employer]. Comment on above: Patient Position: Sitting; Cuff Location : Left Arm; Cuff Size: Large 08-31-2016 09:13-0500 Heart rate 62 /min Werner Ng ANGELLA [place] [facility], [employer].; [employer]. Comment on above: Pattern: Regular 08-31-2016 09:13-0500 Systolic blood pressure 151 mm[Hg] Werner Ng ANGELLA [place] [employer]. Comment on above: Patient Position: Sitting; Cuff Location : Left Arm; Cuff Size: Large 03-16-2016 13:07-0400 Body height 160.02 cm Werner Ng LPN [facility], Inc.; [place] [facility], [employer]. 03-16-2016 13:07-0400 Body mass index (BMI) [Ratio] 26.22 kg/m2 Werner Ng LPN [facility], Inc.; [employer] 03-16-2016 13:07-0400 Body surface area Derived from formula 1.7 m2 Werner Ng [facility].; [employer], [employer]. 03-16-2016 13:07-0400 Body temperature 97.9 [degF] Werner Ng [facility], Inc[facility] [employer], [employer]. Comment on above: Method: Tympanic 03-16-2016 13:07-0400 Body weight 67.13 kg Werner Ng LPN [facility], Inc.; [facility], [employer]. 03-16-2016 13:07-0400 Diastolic blood pressure 84 mm[Hg] Werner Ng LPN [facility], Inc.; [employer], [employer]. Comment on above: Patient Position: Sitting; Cuff Location : Left Arm; Cuff Size: Large 03-16-2016 13:07-0400 Heart rate 68 /min Werner Ng [employer] [facility], Inc.; [employer], [employer]. Comment on above: Pattern: Regular 03-16-2016 13:07-0400 Systolic blood pressure 155 mm[Hg] Werner Ng [employer] [facility], Inc.; [employer], [employer]. Comment on above: Patient Position: Sitting; Cuff Location : Left Arm; Cuff Size: Large 01-15-2016 11:43-0400 Body height 160.02 cm Werner Ng [facility], Inc.; [employer], [employer]. 01-15-2016 11:43-0400 Body mass index (BMI) [Ratio] 26.57 kg/m2 Werner Ng LPN [facility], Inc.; [facility], [employer]. 01-15-2016 11:43-0400 Body surface area Derived from formula 1.71 m2 Werner Ng LPN [employer] 01-15-2016 11:43-0400 Body weight 68.04 kg Werner Ng [employer] [facility], [facility] [employer] 01-15-2016 11:43-0400 Diastolic blood pressure 80 mm[Hg] Werner Ng [facility] [employer] Comment on above: Patient Position: Sitting; Cuff Location : Left Arm; Cuff Size: Large 01-15-2016 11:43-0400 Heart rate 59 /min Werner Ng [facility] [employer] Comment on above: Pattern: Regular 01-15-2016 11:43-0400 Systolic blood pressure 133 mm[Hg] Werner Ng [employer] [facility], [facility].; [employer] Comment on above: Patient Position: Sitting; Cuff Location : Left Arm; Cuff Size: Large 10-31-2015 08:58-0400 Body height 160.02 cm Chinyere Lara MD Work Phone: [employer] 10-31-2015 08:58-0400 Body mass index (BMI) [Ratio] 25.69 kg/m2 Chinyere Lara MD Work Phone: [employer] 10-31-2015 08:58-0400 Body surface area Derived from formula 1.69 m2 Chinyere Lara MD Work Phone: [employer] 10-31-2015 08:58-0400 Body weight 65.77 kg Chinyere Lara MD Work Phone: [employer], [employer].; [employer] 10-31-2015 08:58-0400 Diastolic blood pressure 87 mm[Hg] Chinyere Lara MD Work Phone: [employer], [employer].; [employer]. Comment on above: Patient Position: Sitting; Cuff Location : Right Arm; Cuff Size: Standard 10-31-2015 08:58-0400 Heart rate 59 /min Chinyeer Lara MD Work Phone: [employer] Comment on above: Pattern: Regular 10-31-2015 08:58-0400 Systolic blood pressure 149 mm[Hg] Chinyere Lara MD Work Phone: [employer]. Comment on above: Patient Position: Sitting; Cuff Location : Right Arm; Cuff Size: Standard 06-16-2015 11:04-0500 Body height 160.02 cm Chinyere Lara MD Work Phone: [employer] 06-16-2015 11:04-0500 Body mass index (BMI) [Ratio] 26.04 kg/m2 Chinyere Lara MD Work Phone: [employer] 06-16-2015 11:04-0500 Body surface area Derived from formula 1.7 m2 Chinyere Lara MD Work Phone: [employer] 06-16-2015 11:04-0500 Body weight 66.68 kg Chinyere Lara MD Work Phone: [employer] 06-16-2015 11:04-0500 Diastolic blood pressure 77 mm[Hg] Chinyere Lara MD Work Phone: [employer]. Comment on above: Patient Position: Sitting; Cuff Location : Left Arm; Cuff Size: Large 06-16-2015 11:04-0500 Heart rate 77 /min Chinyere Lara MD Work Phone: [employer]. Comment on above: Pattern: Regular 06-16-2015 11:04-0500 Systolic blood pressure 136 mm[Hg] Chinyere Lara MD Work Phone: [employer]. Comment on above: Patient Position: Sitting; Cuff Location : Left Arm; Cuff Size: Large 12-17-2014 09:44-0400 Body height 160.02 cm Chinyere Lara MD Work Phone: [employer] 12-17-2014 09:44-0400 Body mass index (BMI) [Ratio] 24.98 kg/m2 Chinyere Lara MD Work Phone: [employer].; [employer] 12-17-2014 09:44-0400 Body surface area Derived from formula 1.67 m2 Chinyere Lara MD Work Phone: [employer] 12-17-2014 09:44-0400 Body weight 63.96 kg Chinyere Lara MD Work Phone: [employer] 12-17-2014 09:44-0400 Diastolic blood pressure 76 mm[Hg] Chinyere Lara MD Work Phone: [employer]. Comment on above: Patient Position: Sitting; Cuff Location : Left Arm; Cuff Size: Standard 12-17-2014 09:44-0400 Heart rate 68 /min Chinyere Lara MD Work Phone: [employer]. Comment on above: Pattern: Regular 12-17-2014 09:44-0400 Systolic blood pressure 119 mm[Hg] Chinyere Lara MD Work Phone: [employer]. Comment on above: Patient Position: Sitting; Cuff Location : Left Arm; Cuff Size: Standard 08-12-2014 08:54-0500 Body height 157.48 cm Werner Ng [employer] 08-12-2014 08:54-0500 Body mass index (BMI) [Ratio] 26.89 kg/m2 Werner Ng LPN [facility] [employer]. 08-12-2014 08:54-0500 Body surface area Derived from formula 1.68 m2 Werner Ng LPN [facility] [employer] 08-12-2014 08:54-0500 Body weight 66.68 kg Werner Ng LPN [facility], Inc.; [employer] 08-12-2014 08:54-0500 Diastolic blood pressure 72 mm[Hg] Werner Ng LPN [facility], Inc.; [employer] Comment on above: Patient Position: Sitting; Cuff Location : Left Arm; Cuff Size: Large 08-12-2014 08:54-0500 Heart rate 66 /min Werner Ng LPN [facility], [facility] [employer] Comment on above: Pattern: Regular 08-12-2014 08:54-0500 Systolic blood pressure 155 mm[Hg] Werner Ng LPN [facility], [facility] [employer] Comment on above: Patient Position: Sitting; Cuff Location : Left Arm; Cuff Size: Large 04-29-2014 11:09-0400 Body height 158.75 cm Leslye Jones [facility], Inc.; [employer], [employer] 04-29-2014 11:09-0400 Body mass index (BMI) [Ratio] 25.38 kg/m2 [facility]lye Robert [facility] Inc.; [employer] 04-29-2014 11:09-0400 Body surface area Derived from formula 1.66 m2 [place] Robert [employer] [place] [facility], Inc.; [employer], [employer]. 04-29-2014 11:09-0400 Body weight 63.96 kg [place] S[place]stefanie Jones [facility], Inc.; [employer], [employer]. 04-29-2014 11:09-0400 Diastolic blood pressure 66 mm[Hg] Leslyestefanie Jones [facility], [employer].; [employer], [employer]. Comment on above: Patient Position: Sitting; Cuff Location : Left Arm; Cuff Size: Standard 04-29-2014 11:09-0400 Heart rate 70 /min Leslye Jones [employer] [facility], [facility] [employer]. Comment on above: Pattern: Regular 04-29-2014 11:09-0400 Systolic blood pressure 124 mm[Hg] Leslye Jones ANGELLA [facility], Inc.; [employer], [employer]. Comment on above: Patient Position: Sitting; Cuff Location : Left Arm; Cuff Size: Standard 12-30-2013 09:03-0400 Body height 158.75 cm Jerrica Chatman LPN [facility], Inc.; [facility], [facility] 12-30-2013 09:03-0400 Body mass index (BMI) [Ratio] 25.74 kg/m2 Jerrica Chatman LPN [facility], Inc.; [facility], [facility] 12-30-2013 09:03-0400 Body surface area Derived from formula 1.67 m2 Jerrica Chatman LPN [facility], Inc.; [facility], [employer]. 12-30-2013 09:03-0400 Body weight 64.86 kg Jerrica Chatman LPN [facility], Inc.; [facility], [employer]. 12-30-2013 09:03-0400 Diastolic blood pressure 79 mm[Hg] Jerrica Chatman LPN [facility], Inc.; [employer], [employer]. Comment on above: Patient Position: Sitting; Cuff Location : Left Arm; Cuff Size: Standard 12-30-2013 09:03-0400 Heart rate 76 /min Jerrica Chatman LPN [facility], Inc.; [employer], [employer]. Comment on above: Pattern: Regular 12-30-2013 09:03-0400 Systolic blood pressure 133 mm[Hg] Jerrica Chatman LPN [facility], Inc.; [employer], [employer]. Comment on above: Patient Position: Sitting; Cuff Location : Left Arm; Cuff Size: Standard 12-09-2013 11:29-0400 Body temperature 98.5 [degF] Jerrica Chatman LPN [facility], Inc.; [facility], [employer]. 12-09-2013 11:29-0400 Body weight 66.68 kg Jerrica Chatman LPN [facility], Inc.; [employer], [employer]. 12-09-2013 11:29-0400 Diastolic blood pressure 76 mm[Hg] Jerrica Chatman LPN [place] [facility], Inc.; [facility] Comment on above: Patient Position: Sitting; Cuff Location : Left Arm; Cuff Size: Standard 12-09-2013 11:29-0400 Heart rate 56 /min Jerrica Bradley [employer] [facility], Inc.; [employer]. Comment on above: Pattern: Regular 12-09-2013 11:29-0400 Systolic blood pressure 122 mm[Hg] Jerrica E Copma [facility], Inc.; [employer] Comment on above: Patient Position: Sitting; Cuff Location : Left Arm; Cuff Size: Standard 10-01-2013 09:21-0400 Body height 160.66 cm Werner Ng [facility], Inc.; [facility], [employer] 10-01-2013 09:21-0400 Body mass index (BMI) [Ratio] 25.83 kg/m2 [facility] 10-01-2013 09:21-0400 Body surface area Derived from formula 1.7 m2 [facility], Inc.; [employer] 10-01-2013 09:21-0400 Body weight 66.68 kg [facility] Hernandez [facility], Inc.; [facility], [employer]. 10-01-2013 09:21-0400 Diastolic blood pressure 76 mm[Hg] Jennifer Stuckey [facility], Inc.; [employer], [employer]. Comment on above: Patient Position: Sitting; Cuff Location : Left Arm; Cuff Size: Large 10-01-2013 09:21-0400 Heart rate 76 /min Jennifer Stuckey [facility], Inc.; [employer]. Comment on above: Pattern: Regular 10-01-2013 09:21-0400 Systolic blood pressure 127 mm[Hg] [facility] Hernandez [facility], Inc.; [employer]. Comment on above: Patient Position: Sitting; Cuff Location : Left Arm; Cuff Size: Large 01-30-2013 10:02-0400 Body height 160.66 cm Татьяна Pizano [facility], Inc.; [employer], [employer] 01-30-2013 10:02-0400 Body mass index (BMI) [Ratio] 26.1 kg/m2 Татьяна Goodeabby PERALES [facility], [facility].; [place] [facility], Inc[facility] 01-30-2013 10:02-0400 Body surface area Derived from formula 1.71 m2 Татьяна Lundbergem PERALES [place] [facility], [facility].; [employer] 01-30-2013 10:02-0400 Body weight 67.36 kg Татьяна Lundbergem PERALES [place] [email or web address].; [employer] 01-30-2013 10:02-0400 Diastolic blood pressure 80 mm[Hg] Татьяна Pizano [email or web address].; [facility], [employer]. Comment on above: Patient Position: Sitting; Cuff Location : Left Arm; Cuff Size: Standard 01-30-2013 10:02-0400 Heart rate 60 /min Татьяна Lundbergem PERALES [place] [email or web address].; [employer] Comment on above: Pattern: Regular 01-30-2013 10:02-0400 Systolic blood pressure 126 mm[Hg] Татьяна Mitchellana m [facility] [email or web address].; [employer] Comment on above: Patient Position: Sitting; Cuff Location : Left Arm; Cuff Size: Standard 10-31-2012 09:38-0400 Body height 160.66 cm Chinyere Lara MD Work Phone: [facility] [employer] 10-31-2012 09:38-0400 Body mass index (BMI) [Ratio] 25.48 kg/m2 Chinyere Lara MD Work Phone: [employer] 10-31-2012 09:38-0400 Body surface area Derived from formula 1.69 m2 Chinyere Lara MD Work Phone: [employer].; [facility] 10-31-2012 09:38-0400 Body weight 65.77 kg Chinyere Lara MD Work Phone: [employer] 10-31-2012 09:38-0400 Diastolic blood pressure 76 mm[Hg] Chinyere Lara MD Work Phone: [place] [employer]. Comment on above: Patient Position: Sitting; Cuff Location : Right Arm; Cuff Size: Standard 10-31-2012 09:38-0400 Heart rate 64 /min Chinyere Lara MD Work Phone: [place] [employer]. Comment on above: Pattern: Regular 10-31-2012 09:38-0400 Systolic blood pressure 132 mm[Hg] Chinyere Lara MD Work Phone: [facility] [employer].; [employer]. Comment on above: Patient Position: Sitting; Cuff Location : Right Arm; Cuff Size: Standard 10-19-2012 07:43-0400 Body temperature 98.3 [degF] Jerrica Chatman LPN [place] [facility], [employer].; [employer]. 10-19-2012 07:43-0400 Body weight 67.59 kg Jerrica Chatman LPN [facility], [employer].; [employer]. 10-19-2012 07:43-0400 Diastolic blood pressure 76 mm[Hg] Jerrica Chatman LPN [employer]. Comment on above: Patient Position: Sitting; Cuff Location : Left Arm; Cuff Size: Standard 10-19-2012 07:43-0400 Heart rate 63 /min Jerrica Chatman LPN [facility], [employer].; [employer]. Comment on above: Pattern: Regular 10-19-2012 07:43-0400 Systolic blood pressure 128 mm[Hg] Jerrica Chatman LPN [facility], [employer].; [employer]. Comment on above: Patient Position: Sitting; Cuff Location : Left Arm; Cuff Size: Standard 08-31-2012 08:00-0500 Body weight 67.59 kg Jerrica Chatman LPN [facility], [employer].; [employer]. 08-31-2012 08:00-0500 Diastolic blood pressure 69 mm[Hg] Jerrica Chatman LPN [facility], Inc.; [employer]. Comment on above: Patient Position: Sitting; Cuff Location : Left Arm; Cuff Size: Standard 08-31-2012 08:00-0500 Heart rate 62 /min Jerrica Chatman LPN [facility], Inc.; [employer] Comment on above: Pattern: Regular 08-31-2012 08:00-0500 Systolic blood pressure 121 mm[Hg] Jerrica Chatman [employer] [facility], Inc.; [employer]. Comment on above: Patient Position: Sitting; Cuff Location : Left Arm; Cuff Size: Standard 08-25-2012 08:51-0500 Body height 160.66 cm Anna Pradhan [facility], [facility].; [employer] 08-25-2012 08:51-0500 Body mass index (BMI) [Ratio] 26.19 kg/m2 Anna Pradhan [facility], Inc.; [employer] 08-25-2012 08:51-0500 Body surface area Derived from formula 1.71 m2 Anna [facility], [facility].; [employer] 08-25-2012 08:51-0500 Body weight 67.59 kg Anna Pradhan [facility], [facility].; [facility], [employer] 08-25-2012 08:51-0500 Diastolic blood pressure 74 mm[Hg] Anna Pradhan Gaurav [email or web address] Inc.; [employer] Comment on above: Patient Position: Sitting; Cuff Location : Left Arm; Cuff Size: Standard 08-25-2012 08:51-0500 Heart rate 89 /min Anna Pradhan [facility], [employer].; [employer]. Comment on above: Pattern: Regular 08-25-2012 08:51-0500 Systolic blood pressure 128 mm[Hg] Anna Gtzlabach [facility], [employer].; [employer]. Comment on above: Patient Position: Sitting; Cuff Location : Left Arm; Cuff Size: Standard 05-07-2012 13:28-0500 Body temperature 98.3 [degF] Jerrica Chatman ANGELLA [facility], Inc.; [employer] 05-07-2012 13:28-0500 Body weight 67.13 kg Jerrica Chatman ANGELLA [facility], Inc.; [facility] 05-07-2012 13:28-0500 Diastolic blood pressure 80 mm[Hg] Jerrica Chatman [facility], Inc.; [employer] Comment on above: Patient Position: Sitting; Cuff Location : Left Arm; Cuff Size: Standard 05-07-2012 13:28-0500 Heart rate 86 /min Jerrica E Comp[employer] [facility], Inc.; [employer] Comment on above: Pattern: Regular 05-07-2012 13:28-0500 Systolic blood pressure 132 mm[Hg] Jerricamisa Chatman ANGELLA [facility], Inc.; [employer] Comment on above: Patient Position: Sitting; Cuff Location : Left Arm; Cuff Size: Standard 02-27-2012 12:05-0400 Body height 160.66 cm Татьяна Pizano LPN [facility], [facility].; [employer] 02-27-2012 12:05-0400 Body mass index (BMI) [Ratio] 26.19 kg/m2 Татьяна Pizano [facility] [employer] [facility], [facility] [employer] 02-27-2012 12:05-0400 Body surface area Derived from formula 1.71 m2 Татьяна Pizano [employer] [place] [employer] [facility], [facility].; [employer] 02-27-2012 12:05-0400 Body weight 67.59 kg Татьяна Pizano LPN [place] [employer] [facility].; [employer], [employer] 02-27-2012 12:05-0400 Diastolic blood pressure 78 mm[Hg] Татьяна Pizano [facility] [employer] [facility] [employer] Comment on above: Patient Position: Sitting; Cuff Location : Left Arm; Cuff Size: Standard 02-27-2012 12:05-0400 Heart rate 60 /min Татьяна Pizano LPN [place] [employer] [facility].; [employer]. Comment on above: Pattern: Regular 02-27-2012 12:05-0400 Systolic blood pressure 128 mm[Hg] Татьяна [facility]inder [facility], [employer]. Comment on above: Patient Position: Sitting; Cuff Location : Left Arm; Cuff Size: Standard 10-13-2010 14:140400 Body weight 78.[address] [facility] [employer]. 10-13-2010 14:14-0400 Diastolic blood pressure 67 mm[Hg] Werner [facility], [employer]. Comment on above: Patient Position: Sitting; Cuff Location : Left Arm; Cuff Size: Large 10-13-2010 14:140400 Heart rate 76 /min Werner Ng [facility] [employer] [facility], [employer]. Comment on above: Pattern: Regular 10-13-2010 14:14-0400 Systolic blood pressure 128 mm[Hg] Werner [facility], [employer]. Comment on above: Patient Position: Sitting; Cuff Location : Left Arm; Cuff Size: Large 09-17-2010 10:0400 Body temperature 97.3 [degF] Jerrica Chatman [facility], [employer], [employer]. 09-17-2010 10:0400 Body weight 78.[address] [facility], [employer]. 09-17-2010 10:210400 Diastolic blood pressure 81 mm[Hg] Jerrica Chatman [employer]. Comment on above: Patient Position: Sitting; Cuff Location : Left Arm; Cuff Size: Standard 09-17-2010 10:210400 Heart rate 63 /min Jerrica Chatman [employer] [facility], [employer]. Comment on above: Pattern: Regular 09-17-2010 10:21-0400 Systolic blood pressure 138 mm[Hg] Jerrica Chatman [employer]. Comment on above: Patient Position: Sitting; Cuff Location : Left Arm; Cuff Size: Standard Encounters Encounter Date Encounter Type Care Provider Facility Start: 05-12-2025 ambulatory TERRENCE Lund lity:[facility] Start: 04-22-2025 End: 04-22-2025 Emergency department patient visit Werner Baptiste Facility:[facility] Start: 04-17-2025 End: 04-17-2025 ambulatory WERNER BAPTISTE Facility:[facility] Start: 04-17-2025 End: 04-17-2025 ambulatory WERNER BAPTISTE Facility:[facility] Start: 04-15-2025 End: 04-15-2025 ambulatory RAVEN EAST Facility:[facility] Start: 04-06-2025 End: 04-06-2025 ambulatory RAVEN EAST Facility:[id number] Start: 03-20-2025 End: 03-20-2025 ambulatory RAVEN EAST Facility:[facility] Start: 03-05-2025 End: 03-05-2025 Subsequent hospital visit by physician Mri Radio [facility] (I-Stat/1.5t) Work Phone: Radiology Comment on above: 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] Start: 03-05-2025 End: 03-05-2025 ambulatory Lab/Port Richard [facility] Work Phone: Hematology/Oncology Comment on above: 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) (Primary Dx) Start: 03-04-2025 End: 03-04-2025 Telephone encounter Raven East DO Work Phone: Hematology/Oncology Comment on above: Appointment Start: 02-28-2025 End: 02-28-2025 ambulatory Lab/Port Richard [facility] Work Phone: Hematology/Oncology Comment on above: Malaise and fatigue Start: 02-24-2025 End: 02-24-2025 ambulatory ERNESTO MACE Facility:[facility] Start: 02-21-2025 End: 02-21-2025 Follow-up encounter Raven East DO Work Phone: Hematology/Oncology Comment on above: 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) (Primary Dx); 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) Start: 02-21-2025 End: 02-26-2025 Telephone encounter Leesa Hillman RN [facility] Radiology Comment on above: Radiology Pre Proced ure Instructions (Medport insertion) Start: 02-21-2025 End: 02-21-2025 ambulatory VICKI NATHAN Facility:[facility] Start: 02-20-2025 End: 02-24-2025 Telephone encounter Raven East DO Work Phone: Hematology/Oncology Start: 02-20-2025 End: 02-20-2025 Office outpatient visit 25 minutes Raven East DO Work Phone: Hematology/Oncology Comment on above: 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) (Primary Dx); 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); Memory loss; Confusion; Malaise and fatigue Start: 02-20-2025 End: 02-20-2025 ambulatory RAVEN EAST Facility:[facility] Start: 02-13-2025 End: 02-13-2025 Subsequent hospital visit by physician Daniela [facility] (I-Stat) Work Phone: Cat Scan Comment on above: 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] Start: 02-13-2025 End: 02-13-2025 ambulatory RAVEN EAST Facility:[facility] Start: 11-06-2024 End: 11-06-2024 Patient encounter procedure Raven East DO Work Phone: Hematology/Oncology Start: 11-06-2024 End: 11-06-2024 ambulatory Raven East DO Work Phone: Hematology/Oncology Comment on above: 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) (Primary Dx); 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) Start: 10-30-2024 End: 10-30-2024 Subsequent hospital visit by physician Daniela Feliz [facility] Cat Scan Comment on above: Encounter for follow -up surveillance of lung cancer [Z08, Z85.118] Start: 10-30-2024 End: 10-30-2024 ambulatory GREG PATEL Facility:[facility] Start: 09-04-2024 End: 01-01-2025 Telephone encounter Raven East DO Work Phone: Hematology/Oncology Comment on above: Appointment Start: 09-04-2024 End: 09-04-2024 ambulatory RAVEN EAST Facility:[facility] Start: 09-04-2024 End: 09-04-2024 Subsequent hospital visit by physician Mri Radio [facility] (I-Stat/1.5t) Work Phone: Radiology Comment on above: Small cell lung canc er (HCC) [C34.90] Start: 08-27-2024 End: 08-27-2024 Subsequent hospital visit by physician Xr [facility] Bartolome Rader Work Phone: Radiology Comment on above: Chronic midline low back pain without sciatica [M54.50, G89.29] Start: 08-27-2024 End: 08-27-2024 ambulatory GREG PATEL Facility:[facility] Start: 08-27-2024 End: 08-27-2024 Office outpatient visit 25 minutes Raven East DO Work Phone: Hematology/Oncology Comment on above: Small cell lung canc er, unspecified laterality (HCC) (Primary Dx); Small cell lung cancer (HCC); Acute right-sided low back pain without sciatica; 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); Chronic midline low back pain without sciatica Start: 08-23-2024 End: 08-26-2024 Telephone encounter Greg Patel MD Work Phone: Radiology Comment on above: Results (Disc ) Start: 08-21-2024 End: 08-21-2024 E-mail encounter from caregiver [facility] Provider Pain Management Start: 08-21-2024 End: 08-21-2024 Patient encounter procedure [facility] Provider Pain Management Comment on above: Instructions & Requi rements for Your Upcoming Appointment Start: 08-20-2024 End: 08-29-2024 ambulatory Александр Dugan PT Work Phone: [facility] Comment on above: Acute right-sided lo w back pain without sciatica (Primary Dx) No improvement with back pain following PT Start: 08-16-2024 End: 08-16-2024 ambulatory Whit Sheppard [employer] Work Phone: [facility] Comment on above: Acute right-sided lo w back pain without sciatica (Primary Dx) Start: 08-09-2024 End: 08-09-2024 ambulatory Whit Sheppard [employer] Work Phone: [facility] Comment on above: Acute right-sided lo w back pain without sciatica (Primary Dx) Start: 08-02-2024 End: 08-02-2024 Follow-up encounter Xiao Perez APRN.[employer] Work Phone: Hematology/Oncology Comment on above: Encounter for follow -up surveillance of lung cancer (Primary Dx); Small cell lung cancer, unspecified laterality (HCC); Dyspnea and respiratory abnormalities Start: 08-02-2024 End: 08-02-2024 Patient encounter procedure Xiao Perez APRN.[employer] Work Phone: Hematology/Oncology Start: 08-02-2024 End: 08-02-2024 ambulatory GREG Stefanie PATEL Facility:[facility] Start: 07-30-2024 Review Chinyere Lara MD Work Phone: [facility]. Start: 07-26-2024 End: 07-26-2024 ambulatory GREG Watts PATEL Facility:[facility] Start: 07-01-2024 End: 07-01-2024 ambulatory Whit Sheppard [employer] Work Phone: [facility] Comment on above: Acute right-sided lo w back pain without sciatica (Primary Dx) Start: 06-13-2024 End: 06-13-2024 ambulatory Gregmeghann Patel Facility:[facility] Start: 06-11-2024 End: 06-11-2024 ambulatory Александр Dugan PT Work Phone: [facility] Comment on above: Acute right-sided lo w back pain without sciatica (Primary Dx) Start: 05-29-2024 End: 05-29-2024 ambulatory Greg Patel Facility:[facility] Start: 05-16-2024 End: 05-21-2024 Telephone encounter Raven East DO Work Phone: Hematology/Oncology Comment on above: Results Start: 05-14-2024 End: 05-14-2024 ambulatory CHINYERE LARA Facility:[facility] Start: 05-13-2024 End: 05-14-2024 Telephone encounter Neptali Lake MD Work Phone: Cardiology Comment on above: Results Start: 05-08-2024 End: 05-08-2024 Telephone encounter Holly MENDOSA Hematology/Oncology Comment on above: Disability Assistanc e Start: 05-06-2024 End: 05-06-2024 ambulatory Pulm Lab [facility] Work Phone: PULM LAB [facility] Comment on above: Spirometry Start: 05-06-2024 End: 05-06-2024 Patient encounter procedure Pulm Lab [facility] Work Phone: PULM LAB [facility] Start: 05-02-2024 End: 05-02-2024 Telephone encounter Raven East DO Work Phone: Hematology/Oncology Comment on above: Results Start: 05-02-2024 End: 05-02-2024 Subsequent hospital visit by physician Xr [facility] Work Phone: Radiology Comment on above: Small cell lung canc er, unspecified laterality (HCC) [C34.90] Start: 05-02-2024 End: 05-02-2024 Office outpatient visit 25 minutes Raven East DO Work Phone: Hematology/Oncology Comment on above: Small cell lung canc er, unspecified laterality (HCC) (Primary Dx); Dyspnea and respiratory abnormalities; Acute right-sided low back pain without sciatica Start: 04-25-2024 End: 04-25-2024 Subsequent hospital visit by physician Ct [facility] (I-Stat) Work Phone: Cat Scan Comment on above: Small cell lung canc er, unspecified laterality (HCC) [C34.90] Start: 04-22-2024 End: 04-23-2024 Telephone encounter Kelli East RN Hematology/Oncology Comment on above: Appointment Start: 03-19-2024 End: 03-20-2024 Telephone encounter Neptali Lake MD Work Phone: Cardiology Comment on above: Results (NM stress a nd ECHO) Start: 03-18-2024 ambulatory NEPTALI LAKE Facil ity:[facility] Start: 03-18-2024 End: 03-18-2024 Subsequent hospital visit by physician Echo [facility] Work Phone: Cardiology Lab Comment on above: Ventricular tachycar graham (HCC) [I47.20] Start: 03-15-2024 End: 07-17-2024 Telephone encounter Rodolfo Monique RN Cardiology Lab Start: 03-06-2024 End: 03-06-2024 Telephone follow-up Chinyere Lara MD Work Phone: [facility] Start: 02-28-2024 End: 02-29-2024 Telephone encounter Raven East DO Work Phone: Hematology/Oncology Comment on above: Patient Question Start: 02-21-2024 End: 02-21-2024 Patient encounter procedure Neptali Lake MD Work Phone: Cardiology Comment on above: SVT (supraventricula r tachycardia) (HCC) (Primary Dx); Ventricular tachycardia (HCC); Orthostasis; Small cell lung cancer, unspecified laterality (HCC); 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) Start: 02-13-2024 Telephone encounter Carlos Diane MD Work Phone: [facility] Cardiology Comment on above: Appointment Start: 02-12-2024 End: 02-19-2024 Telephone encounter Raven East DO Work Phone: Hematology/Oncology Comment on above: Results Start: 01-29-2024 End: 01-29-2024 Nursing evaluation of patient and report Nurse Card Admin [facility] Work Phone: Cardiology Comment on above: Orthostatic hypotens ion (Primary Dx); Small cell carcinoma of lung, unspecified laterality, unspecified part of lung (HCC) Start: 01-26-2024 Telephone encounter Raven velazquez DO Work Phone: Hematology/Oncology Start: 01-26-2024 End: 01-26-2024 ambulatory Raven East DO Work Phone: Hematology/Oncology Comment on above: Small cell lung canc er, unspecified laterality (HCC) (Primary Dx); Orthostasis Start: 01-26-2024 End: 01-26-2024 Patient encounter procedure Raven East DO Work Phone: Hematology/Oncology Start: 01-17-2024 End: 01-17-2024 Subsequent hospital visit by physician [facility] (I-Stat) Work Phone: Cat Scan Comment on above: Small cell lung canc er (HCC) [C34.90] Start: 01-01-2024 Telephone encounter Raven velazquez DO Work Phone: Hematology/Oncology Comment on above: Results Start: 01-01-2024 End: 01-01-2024 Subsequent hospital visit by physician Mri Radio [facility] (I-Stat/1.5t) Work Phone: Radiology Comment on above: Small cell lung canc er, unspecified laterality (HCC) [C34.90] Start: 12-27-2023 End: 12-27-2023 ambulatory Raven East DO Work Phone: Hematology/Oncology Comment on above: Small cell lung canc er, unspecified laterality (HCC) (Primary Dx); 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); Orthostasis Start: 12-27-2023 End: 12-27-2023 Patient encounter procedure Raven East DO Work Phone: Hematology/Oncology Start: 12-26-2023 Telephone encounter Raven velazquez DO Work Phone: Hematology/Oncology Comment on above: Dizziness Start: 12-15-2023 End: 12-15-2023 Telephone follow-up Chinyere Lara MD Work Phone: [employer] Start: 12-14-2023 Telephone encounter Abena winkler RN Work Phone: Hematology/Oncology Comment on above: Paper Ruler Tess Nagy Follow Up Start: 12-13-2023 Telephone encounter Raven velazquez DO Work Phone: Hematology/Oncology Comment on above: Pain Start: 12-07-2023 End: 12-07-2023 Office outpatient visit 15 minutes Chinyere Lara MD Work Phone: [employer] Start: 11-23-2023 End: 11-23-2023 ambulatory Xiao Perez APRN.[employer] Work Phone: Hematology/Oncology Comment on above: Small cell lung canc er (HCC) (Primary Dx); 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) Start: 11-23-2023 End: 11-23-2023 Patient encounter procedure Xiao Perez APRN.[employer] Work Phone: Hematology/Oncology Start: 11-22-2023 End: 11-22-2023 Follow-up encounter Caitlin Bravo MD Work Phone: Radiation Oncology Comment on above: Radiotherapy follow- up (Primary Dx); Small cell lung cancer (HCC) Start: 11-22-2023 End: 11-22-2023 Telemedicine consultation with patient Caitlin Bravo MD Work Phone: Radiation Oncology Start: 11-22-2023 End: 11-22-2023 Subsequent hospital visit by physician Ct Prep [facility] Cat Scan Comment on above: Small cell lung canc er (HCC) [C34.90] Start: 11-01-2023 End: 11-01-2023 ambulatory Raven East DO Work Phone: Hematology/Oncology Comment on above: Small cell lung canc er (HCC) (Primary Dx); 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); Chemotherapy-induced neuropathy (HCC) Start: 11-01-2023 End: 11-01-2023 Patient encounter procedure Raven East DO Work Phone: Hematology/Oncology Start: 10-25-2023 ambulatory Caitlin Bravo MD Work Phone: Radiation Oncology Comment on above: Patient Education Start: 10-25-2023 Patient encounter procedure Caitlin Bravo MD Work Phone: Radiation Oncology Start: 10-25-2023 Radiation Oncology Note Braulio Bravo MD Work Phone: Radiation Oncology Comment on above: Completion Note Start: 10-24-2023 End: 10-24-2023 Patient encounter procedure Caitlin Bravo MD Work Phone: Radiation Oncology Comment on above: Small cell lung canc er (HCC) (Primary Dx) Start: 10-17-2023 End: 10-17-2023 Patient encounter procedure Caitlin Bravo MD Work Phone: Radiation Oncology Comment on above: Small cell lung canc er (HCC) (Primary Dx) Start: 10-10-2023 Patient encounter procedure Caitlin Bravo MD Work Phone: [facility] Start: 10-10-2023 Radiation Oncology Note Braulio Bravo MD Work Phone: Radiation Oncology Comment on above: Simulation Note Treatment Planning Start: 10-10-2023 End: 10-10-2023 Nursing evaluation of [facility] and [facility] Work Phone: Radiation Oncology Comment on above: Small cell lung canc er (HCC) (Primary Dx) Start: 10-09-2023 Orders Only Caitlin Bravo MD Work Phone: Radiation Oncology Comment on above: Small cell lung canc er (HCC) (Primary Dx) Start: 09-20-2023 End: 09-20-2023 Patient encounter procedure Caitlin Bravo MD Work Phone: Radiation Oncology Comment on above: Small cell lung canc er (HCC) (Primary Dx) Start: 09-20-2023 End: 09-20-2023 Office outpatient visit 15 minutes Raven East DO Work Phone: Hematology/Oncology Comment on above: Small cell lung canc er, unspecified laterality (HCC) (Primary Dx); 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); LUCIANA (acute kidney injury) (HCC); Antineoplastic chemotherapy induced anemia; Anemia due to antineoplastic chemotherapy Start: 09-15-2023 Telephone encounter Raven velazquez DO Work Phone: Hematology/Oncology Comment on above: Paper Ruler - O ther (Symptoms ) Start: 09-14-2023 End: 09-14-2023 Subsequent hospital visit by physician Ct Prep [facility] Cat Scan Comment on above: Malignant neoplasm o f unspecified part of unspecified bronchus or lung (HCC) [C34.90] Start: 09-14-2023 End: 09-14-2023 ambulatory Treatment Rm 13 Richard [facility] Work Phone: Hematology/Oncology Comment on above: Metastasis to suprac lavicular lymph node (HCC) (Primary Dx); Small cell lung cancer, unspecified laterality (HCC) Start: 09-13-2023 Telephone encounter Raven velazquez DO Work Phone: Hematology/Oncology Comment on above: Follow Up Start: 09-07-2023 Telephone encounter Raven velazquez DO Work Phone: Hematology/Oncology Comment on above: Appointment; Orders Start: 08-31-2023 End: 08-31-2023 ambulatory Lab/Port [facility] Work Phone: Hematology/Oncology Comment on above: Metastasis to suprac lavicular lymph node (HCC) (Primary Dx); Small cell lung cancer, unspecified laterality (HCC) Start: 08-30-2023 End: 08-30-2023 ambulatory Treatment Rm 2 Richard [facility] Work Phone: Hematology/Oncology Comment on above: Small cell lung canc er, unspecified laterality (HCC) (Primary Dx); 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) Small cell lung canc er (HCC) (Primary Dx); 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); Anemia due to antineoplastic chemotherapy Start: 08-29-2023 End: 08-29-2023 ambulatory Treatment Rm 6 Richard [facility] Work Phone: Hematology/Oncology Comment on above: Small cell lung canc er, unspecified laterality (HCC) (Primary Dx); 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) Start: 08-24-2023 Telephone encounter Raven velazquez DO Work Phone: Hematology/Oncology Comment on above: Future Appointment Start: 08-24-2023 End: 08-24-2023 ambulatory Raven East DO Work Phone: Hematology/Oncology Comment on above: Malignant neoplasm o f unspecified part of unspecified bronchus or lung (HCC) (Primary Dx); 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); Small cell lung cancer (HCC); LUCIANA (acute kidney injury) (HCC) Start: 08-24-2023 End: 08-24-2023 Patient encounter procedure Raven East DO Work Phone: [facility] Start: 08-23-2023 Orders Only Raven Parker Work Phone: Hematology/Oncology Comment on above: Small cell lung canc er, unspecified laterality (HCC) (Primary Dx); 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) Start: 08-18-2023 End: 08-18-2023 ambulatory [facility] Work Phone: Start: 08-18-2023 End: 08-18-2023 Patient encounter procedure [facility] Work Phone: Start: 08-17-2023 Telephone encounter Raven velazquez DO Work Phone: Hematology/Oncology Comment on above: Transfusion Start: 08-17-2023 End: 08-17-2023 Office outpatient visit 25 minutes Raven East DO Work Phone: Hematology/Oncology Comment on above: Small cell lung canc er, unspecified laterality (HCC) (Primary Dx); 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); Antineoplastic chemotherapy induced anemia; LUCIANA (acute kidney injury) (HCC) Start: 08-14-2023 End: 08-14-2023 Follow-up encounter Caitlin Bravo MD Work Phone: Radiation Oncology Comment on above: Radiotherapy follow- up (Primary Dx); Small cell lung cancer (HCC) Start: 08-14-2023 End: 08-14-2023 Telemedicine consultation with patient Caitlin Bravo MD Work Phone: [facility] Start: 08-03-2023 End: 08-03-2023 ambulatory Lab/Port [facility] Work Phone: Hematology/Oncology Comment on above: Small cell lung canc er, unspecified laterality (HCC) (Primary Dx); 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) Start: 06-14-2023 Telephone encounter Raven velazquez DO Work Phone: Hematology/Oncology Comment on above: Insurance Inquiry Start: 06-07-2023 End: 06-07-2023 Nursing evaluation of patient and report Nurse Radt [facility] Work Phone: Radiation Oncology Comment on above: Malignant neoplasm o f unspecified part of unspecified bronchus or lung (HCC) (Primary Dx); Small cell lung cancer (HCC) Start: 06-07-2023 End: 06-07-2023 director of food and beverage services [facility] Work Phone: Hematology/Oncology Comment on above: Encounter for educat ion (Primary Dx) Start: 06-05-2023 ambulatory Araceli soliman RT(R) Nuclear Medicine Comment on above: Radiology [place] Start: 06-05-2023 Patient encounter procedure Araceli Guerrero RT(R) [facility] Start: 06-05-2023 Telephone encounter Holly MENDOSA Hematology/Oncology Comment on above: Psychosocial Assessm ent Start: 06-05-2023 End: 06-05-2023 Orders Chinyere Lara MD Work Phone: [facility]. 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) Start: 06-02-2023 End: 06-02-2023 Patient encounter procedure Raven East DO Work Phone: [facility] Start: 06-02-2023 Telephone encounter Belgica Rao RN He matology/Oncology Comment on above: Paper Ruler - O ther (Introduction ) AVS 06/02; CHEMO STAR T Start: 06-02-2023 End: 06-02-2023 Patient encounter procedure Caitlin Bravo MD Work Phone: Radiation Oncology Comment on above: Small cell lung canc er (HCC) (Primary Dx); Malignant neoplasm of unspecified part of unspecified bronchus or lung (HCC) Start: 06-01-2023 End: 06-01-2023 Subsequent hospital visit by physician Ct Prep [facility] Cat Scan Comment on above: Malignant neoplasm o f unspecified part of unspecified bronchus or lung (HCC) [C34.90] Start: 06-01-2023 End: 06-01-2023 Subsequent hospital visit by physician Mri Radio [facility] (I-Stat/1.5t) Work Phone: Radiology Comment on above: Malignant neoplasm o f unspecified part of unspecified bronchus or lung (HCC) [C34.90] Start: 06-01-2023 End: 06-01-2023 ambulatory Raven East DO Work Phone: Hematology/Oncology Comment on above: Small cell lung canc er (HCC) (Primary Dx); Malignant neoplasm of unspecified part of unspecified bronchus or lung (HCC); Anxiety associated with cancer diagnosis (HCC) Start: 06-01-2023 End: 06-01-2023 Patient encounter procedure Raven Stefanie Kita DO Work Phone: [facility] Start: 05-30-2023 Telephone encounter Raven Stefanie Romario velazquez DO Work Phone: Hematology/Oncology Comment on above: New Patient Start: 05-19-2023 End: 05-19-2023 ambulatory [facility] Work Phone: Start: 05-19-2023 End: 05-19-2023 Patient encounter procedure [facility] Work Phone: Start: 05-15-2023 End: 05-15-2023 Orders Chinyere Lara MD Work Phone: [employer] Start: 05-12-2023 End: 05-12-2023 ambulatory [facility] Start: 05-09-2023 End: 05-09-2023 Office outpatient visit 15 minutes Chinyere Lara MD Work Phone: [employer] Start: 09-13-2022 End: 09-13-2022 ambulatory [facility] Start: 09-13-2022 End: 09-13-2022 Office outpatient visit 15 minutes Chinyere Lara MD Work Phone: [employer] Start: 06-29-2022 End: 06-29-2022 Office outpatient visit 15 minutes Chinyere Lara MD Work Phone: [employer] Start: 06-06-2022 End: 06-06-2022 Office outpatient visit 15 minutes Chinyere Lara MD Work Phone: [employer] Start: 04-04-2022 End: 04-04-2022 Office outpatient visit 15 minutes Chinyere Lara MD Work Phone: [employer] Start: 02-21-2022 End: 02-21-2022 Office outpatient visit 15 minutes Chinyere Lara MD Work Phone: [employer] Start: 01-12-2022 End: 01-12-2022 Office outpatient visit 15 minutes Chinyere Lara MD Work Phone: [employer] Start: 11-16-2021 End: 11-16-2021 Medication Chinyere Lara MD Work Phone: [employer]. Start: 11-15-2021 End: 11-15-2021 Office outpatient visit 15 minutes Chinyere Lara MD Work Phone: [employer] Start: 07-21-2021 End: 07-21-2021 Orders Chinyere Lara MD Work Phone: [employer] Start: 07-21-2021 End: 07-21-2021 Orders Chinyere Lara MD Work Phone: [employer] Start: 07-10-2021 End: 07-10-2021 Medication Chinyere Lara MD Work Phone: [employer] Start: 07-09-2021 End: 07-09-2021 Office outpatient visit 15 minutes Chinyere Lara MD Work Phone: [employer]. Start: 06-02-2021 End: 06-02-2021 Office outpatient visit 15 minutes Chinyere Lara MD Work Phone: [employer]. Start: 01-29-2021 End: 01-29-2021 Medication Chinyere Lara MD Work Phone: [employer] Start: 01-25-2021 End: 01-25-2021 Office outpatient visit 15 minutes Chinyere Lara MD Work Phone: [employer] Start: 01-11-2021 End: 01-11-2021 Office outpatient visit 15 minutes Chinyere Lara MD Work Phone: [employer] Start: 11-13-2020 End: 11-13-2020 Phone Encounter Chinyere Lara MD Work Phone: [employer]. Start: 11-11-2020 End: 11-11-2020 Orders Chinyere Lara MD Work Phone: [employer] Start: 10-09-2020 End: 10-09-2020 Office outpatient visit 15 minutes Chinyere Lara MD Work Phone: [employer] Start: 10-08-2020 End: 10-09-2020 Orders Chinyere Lara MD Work Phone: [employer] Start: 09-09-2020 End: 09-09-2020 Orders Chinyere Lara MD Work Phone: [employer] Start: 09-04-2020 End: 09-04-2020 Office outpatient visit 25 minutes Chinyere Lara MD Work Phone: [employer] Start: 07-20-2020 End: 07-20-2020 Office outpatient visit 15 minutes Chinyere Lara MD Work Phone: [employer] Start: 05-25-2020 End: 05-25-2020 Office outpatient visit 15 minutes Chinyere Lara MD Work Phone: [employer] Start: 04-03-2020 End: 04-03-2020 Medication Chinyere Lara MD Work Phone: [employer] Start: 03-31-2020 End: 03-31-2020 Orders Chinyere Lara MD Work Phone: [employer] Start: 03-16-2020 End: 03-16-2020 Medication Chinyere Lara MD Work Phone: [employer] Start: 03-12-2020 End: 03-12-2020 Office outpatient visit 15 minutes Chinyere Lara MD Work Phone: [employer] Start: 11-05-2019 End: 11-05-2019 Medication Chinyere Lara MD Work Phone: [employer] Start: 10-16-2019 End: 10-16-2019 Orders Chinyere Lara MD Work Phone: [employer]. Start: 10-15-2019 End: 10-15-2019 Office outpatient visit 15 minutes Chinyere Lara MD Work Phone: [employer] Start: 09-24-2019 End: 09-24-2019 Office outpatient visit 15 minutes Chinyere Lara MD Work Phone: [employer]. Start: 07-15-2019 End: 07-15-2019 Office outpatient visit 15 minutes Chinyere Lara MD Work Phone: [employer]. Start: 04-05-2019 End: 04-05-2019 Office outpatient visit 15 minutes Chinyere Lara MD Work Phone: [employer]. Start: 01-23-2019 End: 01-23-2019 Telephone follow-up Chinyere Lara MD Work Phone: [employer]. Start: 11-23-2018 End: 11-23-2018 Office outpatient visit 15 minutes Chinyere Lara MD Work Phone: [employer]. Start: 11-09-2018 End: 11-09-2018 Office outpatient visit 15 minutes Chinyere Lara MD Work Phone: [employer] Start: 04-30-2018 End: 04-30-2018 Orders Chinyere Lara MD Work Phone: [employer] Start: 03-14-2018 End: 03-14-2018 Office outpatient visit 15 minutes Chinyere Lara MD Work Phone: [employer] Start: 03-07-2018 End: 03-07-2018 Orders Chinyere Lara MD Work Phone: [employer] Start: 02-20-2018 End: 02-20-2018 Office outpatient visit 15 minutes Chinyere Lara MD Work Phone: [employer] Start: 11-07-2017 End: 11-07-2017 Orders Chinyere Lara MD Work Phone: [employer]. Start: 11-02-2017 End: 11-02-2017 Orders Chinyere Lara MD Work Phone: [employer] Start: 10-04-2017 End: 10-04-2017 Office outpatient visit 15 minutes Chinyere Lara MD Work Phone: [employer] Start: 07-14-2017 End: 07-14-2017 Office outpatient visit 15 minutes Chinyere Lara MD Work Phone: [employer] Start: 05-26-2017 End: 05-26-2017 Office outpatient visit 15 minutes Chinyere Lara MD Work Phone: [employer] Start: 04-28-2017 Ambulatory Yuri B Satyan Facili ty:[facility] Start: 03-10-2017 End: 03-11-2017 Evaluation and management of inpatient Yuri B Satyan Facility:[facility] Start: 03-07-2017 End: 03-07-2017 Office outpatient visit 15 minutes Chinyere Lara MD Work Phone: [employer] Start: 03-07-2017 End: 03-07-2017 Preprocedural examination done Chinyere Lara MD Work Phone: [employer] Start: 03-02-2017 End: 03-02-2017 Medication Chinyere Lara MD Work Phone: [employer] Start: 02-24-2017 Ambulatory Yuri B Satyan Facili ty:[facility] Start: 2017 End: 2017 Medication Chinyere Lara MD Work Phone: [employer] Start: 01-19-2017 End: 01-19-2017 Medication Chinyere Lara MD Work Phone: [employer] Start: 01-18-2017 End: 01-18-2017 Orders Chinyere Lara MD Work Phone: [employer] Start: 01-13-2017 End: 01-16-2017 Orders Chinyere Lara MD Work Phone: [employer] Start: 01-12-2017 End: 01-12-2017 Orders Chinyere Lara MD Work Phone: [employer] Start: 01-12-2017 End: 01-12-2017 Office outpatient visit 15 minutes Chinyere Lara MD Work Phone: [employer] Start: 10-26-2016 End: 10-26-2016 Orders Chinyere Lara MD Work Phone: [employer] Start: 10-26-2016 End: 10-26-2016 Office outpatient visit 15 minutes Chinyere Lara MD Work Phone: [employer] Start: 10-13-2016 End: 10-13-2016 Office outpatient visit 15 minutes Chinyere Lara MD Work Phone: [employer] Start: 08-31-2016 End: 08-31-2016 Office outpatient visit 15 minutes Chinyere Lara MD Work Phone: [employer] Start: 03-25-2016 End: 03-25-2016 Patient encounter status Chinyere Lara MD Work Phone: [employer] Start: 03-25-2016 End: 03-25-2016 Periodic preventive med est patient 40-64yrs Chinyere Lara MD Work Phone: [employer]. Start: 03-16-2016 End: 03-16-2016 Office outpatient visit 15 minutes Chinyere Lara MD Work Phone: [employer] Start: 01-15-2016 End: 01-15-2016 Office outpatient visit 15 minutes Chinyere Lara MD Work Phone: [employer] Start: 01-11-2016 End: 01-11-2016 Medication Chinyere Lara MD Work Phone: [employer] Start: 10-31-2015 End: 10-31-2015 Office outpatient visit 15 minutes Chinyere Lara MD Work Phone: [employer] Start: 06-16-2015 End: 06-16-2015 Periodic preventive med est patient 40-64yrs Chinyere Lara MD Work Phone: [employer] Start: 06-16-2015 End: 06-16-2015 Well adult Chinyere Lara MD Work Phone: [employer]; [employer] Start: 12-17-2014 End: 12-17-2014 Office outpatient visit 15 minutes Chinyere Lara MD Work Phone: [employer] Start: 12-17-2014 End: 12-17-2014 Patient encounter status Chinyere Lara MD Work Phone: [employer] Start: 08-12-2014 End: 08-12-2014 Office outpatient visit 15 minutes Chinyere Lara MD Work Phone: [employer] Start: 04-29-2014 End: 04-29-2014 Office outpatient visit 15 minutes Chinyere Lara MD Work Phone: [employer] Start: 12-30-2013 End: 12-30-2013 Patient encounter procedure Chinyere Lara MD Work Phone: [employer] Start: 12-30-2013 End: 12-30-2013 Routine general medical examination at a health care facility Chinyere Lara MD Work Phone: [employer]; [employer] Start: 12-09-2013 End: 12-09-2013 Patient encounter procedure Chinyere Lara MD Work Phone: [employer] Start: 10-01-2013 End: 10-01-2013 Patient encounter procedure Chinyere Lara MD Work Phone: [employer] Start: 03-11-2013 End: 03-11-2013 Historical Summary Chinyere Lara MD Work Phone: [employer] Start: 01-30-2013 End: 01-30-2013 Patient encounter procedure Chinyere Lara MD Work Phone: [employer] Start: 10-31-2012 End: 10-31-2012 Nursing evaluation of patient and report Chinyere Lara MD Work Phone: [employer] Start: 10-31-2012 End: 10-31-2012 Patient encounter procedure Chinyere Lara MD Work Phone: [employer] Start: 10-31-2012 End: 10-31-2012 Routine general medical examination at a [facility] Chinyere Lara MD Work Phone: [employer] Start: 10-19-2012 End: 10-19-2012 Patient encounter procedure Chinyere Lara MD Work Phone: [employer] Start: 08-31-2012 End: 08-31-2012 Patient encounter procedure Chinyere Lara MD Work Phone: [employer] Start: 08-25-2012 End: 08-25-2012 Patient encounter procedure Chinyere Lara MD Work Phone: [employer] Start: 05-07-2012 End: 05-07-2012 Patient encounter procedure Chinyere Lara MD Work Phone: [employer] Start: 02-27-2012 End: 02-27-2012 Patient encounter procedure Chinyere Lara MD Work Phone: [employer] Start: 12-22-2010 End: 12-22-2010 Medication Chinyere Lara MD Work Phone: [employer] Start: 11-10-2010 End: 11-10-2010 Medication Chinyere Lara MD Work Phone: [employer] Start: 10-13-2010 End: 10-13-2010 Patient encounter procedure Chinyere Lara MD Work Phone: [employer] Start: 09-17-2010 End: 09-17-2010 Patient encounter procedure Chinyere Lara MD Work Phone: [employer] Procedures Date Procedure Procedure Detail Performing Clinician Start: 04-22-[address] Osman Pelletier MD Work Phone: Start: 03-05-2025 Mri brain brain stem w/o w/contrast material Raven East DO Work Phone: Start: 02-13-2025 Ct soft tissue neck w/contrast material Raven Watts Masci DO Work Phone: Start: 10-30-2024 Ct soft tissue neck w/contrast material Xiao Perez [employer] Work Phone: Start: 09-04-2024 Mri spinal canal lum bar w/o & w/contr matrl Raven Watts Masci DO Work Phone: Start: 05-06-2024 Co diffusing capacity P aul A Masci DO Work Phone: Start: 04-25-2024 Ct soft tissue neck w/contrast material Raven Stefanie Masci DO Work Phone: Start: 03-18-2024 Myocardial spect mul tiple studies Neptali Lake MD Work Phone: Start: 03-18-2024 Echo tthrc r-t 2d w/wom-mode compl spec&colr d Neptali Lake MD Work Phone: Start: 01-17-2024 Ct soft tissue neck w/contrast material Xiao Perez [employer] Work Phone: Start: 01-01-2024 Mri brain brain stem w/o w/contrast material Raven Watts Masci DO Work Phone: Start: 12-27-2023 Ecg routine ecg w/le ast 12 lds i&r only [facility] Start: 11-22-2023 Ct abdomen & pelvis w/contrast material Raven Stefanie Masci DO Work Phone: Start: 11-22-2023 Ct soft tissue neck w/contrast material Raven Stefanie Masci DO Work Phone: Start: 11-22-2023 Ct thorax w/contrast material Raven Stefanie Masci DO Work Phone: Start: 09-14-2023 Ct soft tissue neck w/contrast material Raven Stefanie Masci DO Work Phone: Start: 09-14-2023 Mri brain brain stem w/o w/contrast material Raven Stefanie Masci DO Work Phone: Start: 06-01-2023 Ct abdomen & pelvis w/contrast material Raven East DO Work Phone: Start: 06-01-2023 Ct thorax w/contrast material Raven East DO Work Phone: Start: 06-01-2023 Mri brain brain stem w/o w/contrast material Raven East DO Work Phone: Start: 05-09-2023 End: 05-15-2023 Ct soft tissue neck w/contrast material Chinyere Lara MD Work Phone: Comment on above: Clinical Indications : Neck mass, nonpulsatile Start: 09-13-2022 End: 09-15-2022 Radiologic exam abdomen 3+ views Chinyere Lara MD Work Phone: Start: 01-25-2021 End: 01-25-2021 Dexamethasone sodium phos Chinyere Lara MD Work Phone: Start: 11-11-2020 End: 11-13-2020 Radiologic exam chest 2 views Chinyere Lara MD Work Phone: Start: 10-08-2020 End: 10-09-2020 Spmtry w/vc expiratory willie w/wo mxml vol vntj Chinyere Lara MD Work Phone: Start: 10-06-2020 End: 10-06-2020 Lipid panel results documented & reviewed Werner Ng ANGELLA Comment on above: CHUCKY Start: 09-04-2020 End: 09-04-2020 Ecg routine ecg w/least 12 lds i&r only Chinyere Lara MD Work Phone: Start: 10-16-2019 End: 10-22-2019 Ct upper extremity w/o contrast material Chinyere Lara MD Work Phone: Start: 10-15-2019 End: 10-16-2019 Radex wrist complete minimum 3 views Chinyere Lara MD Work Phone: Start: 03-14-2018 End: 03-14-2018 Arthrocentesis aspir&/inj interm jt/burs w/o us Chinyere Lara MD Work Phone: Start: 03-07-2018 End: 03-09-2018 Radiologic exam knee complete 4/more views Chinyere Lara MD Work Phone: Start: 02-20-2018 End: 02-20-2018 Triamcinolone acet inj NOS Chinyere Lara MD Work Phone: Start: 10-04-2017 End: 10-04-2017 Body mass index documented Chinyere Lara MD Work Phone: Start: 10-04-2017 End: 10-09-2017 Ct head/brain w/o contrast material Chinyere Lara MD Work Phone: Start: 05-26-2017 End: 05-26-2017 Body mass index documented Chinyere Lara MD Work Phone: Start: 01-13-2017 End: 01-16-2017 Radiologic examination eye detect foreign body Juliocesar Matthew Lawrence PA-C Work Phone: Start: 01-12-2017 End: 01-18-2017 Mri spinal canal cervical w/o contrast matrl Juliocesar Matthew Lawrence PA-C Work Phone: Start: 10-26-2016 End: 11-01-2016 Ct abdomen & pelvis w/contrast material Chinyere Lara MD Work Phone: Start: 08-31-2016 End: 08-31-2016 Triamcinolone acet inj NOS Chinyere Lara MD Work Phone: Start: 01-15-2016 End: 01-15-2016 Dexamethasone sodium phos Min Rodas MD Work Phone: Start: 10-31-2015 End: 10-31-2015 Dexamethasone sodium phos Chinyere Lara MD Work Phone: Start: 12-30-2013 End: 01-28-2014 Dxa bone density study 1/> sites axial skel Chinyere Lara MD Work Phone: Start: 08-31-2012 End: 08-31-2012 Bx skin subcutaneous&/mucous membrane 1 lesion Chinyere Lara MD Work Phone: Start: 07-03-1994 End: 07-03-1994 Repair of inguinal hernia Keely Watts Abdominal hysterectomy Ragini Lozano MA Comment on above: ovaries intact, 2000 . Pt did not have cancer but had excessive bleeding. ankle surgery for cy st removal Keely Lozano MA section Keely nagy MA Comment on above: 1987 and 1988 Plan of Treatment Date Care Activity Detail Author Start: 02-07-2040 RSV Vaccine (1 - 1-d ose 75+ series) RSV Vaccine (1 - 1-dose 75+ series) [facility] Start: 02-16-2031 Urine microalbumin profile DTaP,Tdap,Td Vaccine (2 - Td or Tdap) [facility] Start: 02-14-2028 Diabetes Screening Diabetes Screenin g [facility] Start: 10-31-2027 Diabetes Screening Diabetes Screenin g [facility] Start: 07-26-2027 Diabetes Screening Diabetes Screenin g [facility] Start: 06-05-2027 Screening for malign ant neoplasm of colon [facility] Start: 04-25-2027 Diabetes Screening Diabetes Screenin g [facility] Start: 01-16-2027 Diabetes Screening Diabetes Screenin [facility] Start: 12-26-2026 Diabetes Screening Diabetes Screenin [facility] Start: 11-22-2026 Diabetes Screening Diabetes Screenin [facility] Start: 10-31-2026 Diabetes Screening Diabetes Screenin [facility] Start: 09-19-2026 Diabetes Screening Diabetes Screenin [facility] Start: 09-13-2026 Diabetes Screening Diabetes Screenin [facility] Start: 09-06-2026 Diabetes Screening Diabetes Screenin g [facility] Start: 08-30-2026 Diabetes Screening Diabetes Screenin g [facility] Start: 08-24-2026 Diabetes Screening Diabetes Screenin g [facility] Start: 08-17-2026 Diabetes Screening Diabetes Screenin g [facility] Start: 07-31-2026 Diabetes Screening Diabetes Screenin g [facility] Start: 06-19-2026 Diabetes Screening Diabetes Screenin g [facility] Start: 06-01-2026 Diabetes Screening Diabetes Screenin g [facility] Start: 06-19-2025 End: 06-19-2025 Patient encounter procedure 06/19/2025 1:00 PM EST Office Visit [facility] [place] [address] [place] [address] Jonny Marc MD [address] [place] [address] establish / physical [facility] [place] Comment on above: establish / physical Start: 04-22-2025 [place] [facility] Start: 04-17-2025 End: 04-17-2025 Patient encounter procedure 04/17/2025 10:20 AM EDT Office Visit [facility] [place] [address] [place] [address] Werner Baptiste MD [address] [place] [address] establish / physical [facility] [place] Comment on above: establish / physical Start: 03-20-2025 End: 03-20-2025 ambulatory 03/20/2025 12:30 PM EDT Visit (SP) Office Hematology/Oncology [address] [place] [address] Raven East DO [address] [place] [address] OV/MRI 03/05/CT 02/13* Hematology/Oncology Comment on above: OV/MRI 03/05/CT 02/13* Start: 03-05-2025 End: 03-05-2025 Patient encounter procedure 03/05/2025 3:00 PM EDT Appointment Radiology [address] [place] [address] 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] Radiology Comment on above: 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] Start: 03-05-2025 End: 03-05-2025 ambulatory 03/05/2025 2:45 PM EDT Infusion Center Hematology/Oncology [address] [place] [address] Wstr, Lab/Port [facility] [address] [place], [place] [id number] PORT ACCESS FOR MRI* Hematology/Oncology Comment on above: PORT ACCESS FOR MRI* Start: 03-03-2025 Influenza vaccination [facility] Start: 02-28-2025 End: 02-28-2025 ambulatory 02/28/2025 11:45 AM EDT Infusion Center Hematology/Oncology [address] [place] [address] Wstr, Lab/Port [facility] [address] [place] [address] FERRITIN/IRON/T4/FTI/T4U /TSH(PORT) Hematology/Oncology Comment on above: FERRITIN/IRON/T4/FTI /T4U/TSH(PORT) Start: 02-24-2025 End: 02-24-2025 Admission to same day surgery center 02/24/2025 10:30 AM EDT - 02/24/2025 12:00 PM EDT Surgery [facility] [address] [place] [address] [place] [address] [address] INSERTION PORT VENOUS ACCESS ADULT [facility] Comment on above: INSERTION PORT VENOU S ACCESS ADULT Start: 02-24-2025 Subsequent hospital visit by physician 02/24/2025 10:30 AM EDT Hospital Encounter [facility] [address] [place] [address] [place] [address] [address] 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] [facility] Comment on above: 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] Start: 02-24-2025 End: 02-24-2025 Insj tunneled ctr vad w/subq port age 5 yr/> [facility] Start: 02-20-2025 End: 05-22-2025 Ferritin [Mass/volume] in Serum or Plasma FERRITIN Lab Routine Malaise and fatigue Expected: 02/20/2025, Expires: 05/22/2025 [facility] Comment on above: Expected: 02/20/2025 , Expires: 05/22/2025 Start: 02-20-2025 End: 05-22-2025 Iron and Iron binding capacity panel - Serum or Plasma IRON AND TIBC Lab Routine Malaise and fatigue Expected: 02/20/2025, Expires: 05/22/2025 [facility] Comment on above: Expected: 02/20/2025 , Expires: 05/22/2025 Start: 02-20-2025 End: 05-22-2025 T4/FTI/T4U T4/FTI/T4U Lab Routine Malaise and fatigue Expected: 02/20/2025, Expires: 05/22/2025 [facility] Comment on above: Expected: 02/20/2025 , Expires: 05/22/2025 Start: 02-20-2025 End: 05-22-2025 Thyrotropin [Units/volume] in Serum or Plasma THYROID STIMULATING HORMONE Lab Routine Malaise and fatigue Expected: 02/20/2025, Expires: 05/22/2025 [facility] Comment on above: Expected: 02/20/2025 , Expires: 05/22/2025 Start: 02-20-2025 End: 02-20-2025 ambulatory 02/20/2025 11:30 AM EDT Visit (SP) Office Hematology/Oncology [address] [place] [address] Raven East DO [address] [place] [address] 3 MO OV/CT&LAB 02/13* Hematology/Oncology Comment on above: 3 MO OV/CT&LAB 02/13* Start: 02-13-2025 End: 02-13-2025 Patient encounter procedure Cat Scan Comment on above: 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]; 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] Start: 02-13-2025 End: 02-13-2025 ambulatory 02/13/2025 9:00 AM EDT Results Only [facility] [address] [place] [address] CBC/CMP* [facility] Comment on above: CBC/CMP* Start: 11-06-2024 End: 11-06-2024 ambulatory 11/06/2024 9:50 AM EDT Visit (SP) Office Hematology/Oncology [address] [place] [address] Raven East, [address] [place] [address] 3 MO OV *CT 10/30/24 Hematology/Oncology Comment on above: 3 MO OV *CT 10/30/24 Start: 10-30-2024 End: 01-29-2025 CREATININE BLD CREATININE BLD Lab Routine Encounter for follow-up surveillance of lung cancer Small cell lung cancer, unspecified laterality (HCC) Dyspnea and respiratory abnormalities Expected: 10/30/2024 (Approximate), Expires: 01/29/2025 [facility] Comment on above: Expected: 10/30/2024 (Approximate), Expires: 01/29/2025 Start: 10-30-2024 End: 09-01-2025 CT Abdomen and Pelvis W contrast IV [facility] Work Phone: Comment on above: Expected: 10/30/2024 (Approximate), Expires: 09/01/2025 Start: 10-30-2024 End: 09-01-2025 CT Chest W contrast IV [facility] Comment on above: Expected: 10/30/2024 (Approximate), Expires: 09/01/2025 Start: 10-30-2024 End: 09-01-2025 CT Neck W contrast IV CT NECK SOFT TISSUE W IVCON Radiology Routine Encounter for follow-up surveillance of lung cancer Small cell lung cancer, unspecified laterality (HCC) Dyspnea and respiratory abnormalities Expected: 10/30/2024 (Approximate), Expires: 09/01/2025 [facility] Comment on above: Expected: 10/30/2024 (Approximate), Expires: 09/01/2025 Start: 10-30-2024 End: 10-30-2024 Patient encounter procedure Cat Scan Comment on above: Encounter for follow -up surveillance of lung cancer [Z08, Z85.118]; Small cell lung cancer, unspecified laterality (HCC) [C34.90]; Dyspnea and respiratory abnormalities [R06.00, R06.89] Start: 10-30-2024 End: 10-30-2024 ambulatory 10/30/2024 9:30 AM EDT Results Only [facility] [address] [place] [address] CBC/CMP [facility] Comment on above: CBC/CMP Start: 09-04-2024 Subsequent hospital visit by physician 09/04/2024 8:30 AM EST Hospital Encounter Radiology [address] [place] [address] Small cell lung cancer (HCC) [C34.90] Radiology Comment on above: Small cell lung canc er (HCC) [C34.90] Start: 08-29-2024 End: 08-29-2024 ambulatory 08/29/2024 11:30 AM EST OT/PT/Speech Visit [facility] [address] [place] [address] Александр Dugan, PT [address] [place] [address] Dx: Acute right-sided low back pain without sciatica [M54.50 (ICD-10-CM)] [facility] Comment on above: Dx: Acute right-side d low back pain without sciatica [M54.50 (ICD-10-CM)] Start: 08-28-2024 End: 08-28-2024 Patient encounter procedure 08/28/2024 1:00 PM EST Office Visit Pain Management [address] [id number] Raven Grande MD [address] [facility] [place] [address] Acute right-sided low back pain without sciatica Pain Management Comment on above: Acute right-sided lo w back pain without sciatica Start: 08-27-2024 End: 08-27-2024 ambulatory 08/27/2024 9:30 AM EST Visit (SP) Office Hematology/Oncology [address] [place] [address] Raven East DO [address] [place] [address] OV/NEW LUMP IN NECK* Hematology/Oncology Comment on above: OV/NEW LUMP IN NECK* Start: 08-23-2024 End: 08-23-2024 ambulatory 08/23/2024 11:00 AM EST OT/PT/Speech Visit [facility] [address] [place] [address] Whit Sheppard, [employer] [address] [place] [address] Dx: Acute right-sided low back pain without sciatica [M54.50 (ICD-10-CM)] [facility] Comment on above: Dx: Acute right-side d low back pain without sciatica [M54.50 (ICD-10-CM)] Start: 08-16-2024 End: 08-16-2024 ambulatory 08/16/2024 11:00 AM EST OT/PT/Speech Visit [facility] [address] [place] [address] Whit Sheppard, [employer] [address] [place] [address] Dx: Acute right-sided low back pain without sciatica [M54.50 (ICD-10-CM)] [facility] Comment on above: Dx: Acute right-side d low back pain without sciatica [M54.50 (ICD-10-CM)] Start: 08-09-2024 End: 08-09-2024 ambulatory 08/09/2024 11:00 AM EST OT/PT/Speech Visit [facility] [address] [place] [address] Whit Sheppard, [employer] [address] [place] [address] Dx: Acute right-sided low back pain without sciatica [M54.50 (ICD-10-CM)] [facility] Comment on above: Dx: Acute right-side d low back pain without sciatica [M54.50 (ICD-10-CM)] Start: 08-02-2024 End: 08-02-2024 ambulatory 08/02/2024 10:20 AM EST Visit (SP) Office Hematology/Oncology [address] [place] [address] Raven East DO [address] [place] [address] 3 MO OV/LAB & CT 07/26* Hematology/Oncology Comment on above: 3 MO OV/LAB & CT 07/04 4* Start: 07-26-2024 End: 07-26-2024 Patient encounter procedure Cat Scan Comment on above: Small cell lung canc er, unspecified laterality (HCC) [C34.90] Start: 07-26-2024 End: 07-26-2024 ambulatory 07/26/2024 9:45 AM EST Results Only [place] [facility] [address] [place] [address] CBC/CMP* [facility] Comment on above: CBC/CMP* Start: 07-09-2024 End: 07-09-2024 ambulatory 07/09/2024 1:15 PM EST OT/PT/Speech Visit [facility] [address] [place] [address] [employer], [employer] [address] [place] [address] Acute right-sided low back pain without sciatica [facility] Comment on above: Acute right-sided lo w back pain without sciatica Start: 07-01-2024 End: 07-01-2024 Follow-up encounter 07/01/2024 10:15 AM EST OT/PT/Speech Visit [facility] [address] [place], [place] [id number] Whit Sheppard, [employer] [address] [place] [address] follow up [facility] Comment on above: follow up Start: 06-10-2024 End: 06-10-2024 ambulatory 06/10/2024 12:15 PM EST OT/PT/Speech Visit [facility] [address] [place], [place] [address] Александр Dugan, PT [address] [place], [place] [phone] To get my health back! [facility] Comment on above: To get my health ramez k! Start: 05-22-2024 End: 05-22-2024 Patient encounter procedure 05/22/2024 8:30 AM EST Office Visit [facility] [address] [place] [address] Carlos Diane MD [address], [address] [place] [address] referral-orthostasis [facility] Comment on above: referral-orthostasis Start: 05-13-2024 End: 08-12-2024 Bacteria identified in Urine by Culture URINE CULTURE Microbiology Routine Flank pain Expected: 05/13/2024, Expires: 08/12/2024 [facility] Work Phone: Comment on above: Expected: 05/13/2024 , Expires: 08/12/2024 Start: 05-06-2024 End: 05-06-2024 ambulatory PULM LAB [facility] Comment on above: Small cell lung canc er, unspecified laterality (HCC) [C34.90]; Dyspnea and respiratory abnormalities [R06.00, R06.89] Start: 05-02-2024 End: 05-02-2024 ambulatory 05/02/2024 11:30 AM EDT Visit (SP) Office Hematology/Oncology [address] [place] [address] Raven East DO [address] [place] [address] 3 MO OV/LAB & CT 04/25* Hematology/Oncology Comment on above: 3 MO OV/LAB & CT * Start: 04-25-2024 End: 04-25-2024 ambulatory 04/25/2024 10:45 AM EDT Results Only [place] [facility] [address] [place] [address] CBC/CMP/LDH* [facility] Comment on above: CBC/CMP/LDH* Start: 04-25-2024 End: 04-25-2024 Patient encounter procedure Cat Scan Comment on above: Small cell lung canc er, unspecified laterality (HCC) [C34.90]; 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 Start: 03-18-2024 Subsequent hospital visit by physician 03/18/2024 9:00 AM EDT Hospital Encounter Cardiology Lab [address] [place] [address] Ventricular tachycardia (HCC) [I47.20] Cardiology Lab Comment on above: Ventricular tachycar graham (HCC) [I47.20] Start: 03-18-2024 End: 03-18-2024 Patient encounter procedure Cardiology Lab Comment on above: Ventricular tachycar graham (HCC) [I47.20] Start: 03-03-2024 Covid-19 Vaccine ( season) Covid-19 Vaccine () [facility] Start: 03-03-2024 Covid-19 Vaccine ( season) Covid-19 Vaccine ( season) [facility] Start: 03-03-2024 Influenza vaccination [facility] Start: 02-26-2024 End: 02-26-2024 ambulatory [facility] Comment on above: CBC/CMP 3 month f/u w/ CBC/C MP-review CTs Start: 02-23-2024 End: 05-24-2024 CREATININE BLD CREATININE BLD Lab STAT Small cell lung cancer (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) Expected: 02/23/2024 (Approximate), Expires: 05/24/2024 [facility] Comment on above: Expected: 02/23/2024 (Approximate), Expires: 05/24/2024 Start: 02-23-2024 End: 12-22-2024 CT Abdomen and Pelvis W contrast IV CT ABD/PEL W IVCON Radiology Routine Small cell lung cancer (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) Expected: 02/23/2024 (Approximate), Expires: 12/22/2024 [facility] Work Phone: Comment on above: Expected: 02/23/2024 (Approximate), Expires: 12/22/2024 Start: 02-23-2024 End: 12-22-2024 CT Chest W contrast IV CT CHEST W IVCON Radiology Routine Small cell lung cancer (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) Expected: 02/23/2024 (Approximate), Expires: 12/22/2024 [facility] Comment on above: Expected: 02/23/2024 (Approximate), Expires: 12/22/2024 Start: 02-23-2024 End: 12-22-2024 CT Neck W contrast IV CT NECK SOFT TISSUE W IVCON Radiology Routine Small cell lung cancer (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) Expected: 02/23/2024 (Approximate), Expires: 12/22/2024 [facility] Comment on above: Expected: 02/23/2024 (Approximate), Expires: 12/22/2024 Start: 02-23-2024 End: 02-23-2024 Patient encounter procedure Cat Scan Comment on above: Small cell lung canc er (HCC) [C34.90]; 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] Start: 02-21-2024 End: 02-20-2025 Echocardiography ECHO Cardiology Routine Ventricular tachycardia (HCC) Expected: 02/21/2024, Expires: 02/20/2025 [facility] Comment on above: Expected: 02/21/2024 , Expires: 02/20/2025 Start: 02-21-2024 End: 03-23-2025 NM Heart Perfusion W stress and W radionuclide IV NM CARDIAC PERF STRESS/PHARM Radiology Routine Ventricular tachycardia (HCC) Expected: 02/21/2024, Expires: 03/23/2025 [facility] Work Phone: Comment on above: Expected: 02/21/2024 , Expires: 03/23/2025 Start: 01-29-2024 End: 01-29-2024 Nursing evaluation of patient and report 01/29/2024 11:20 AM EDT Nurse Visit Cardiology [address] [place] [phone] Wstr, Nurse Card Admin [facility] [address] [place] [phone] Zio to send device according to order. Cardiology Comment on above: Zio to send device a ccording to order. 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] Start: 01-17-2024 End: 01-17-2024 ambulatory 01/17/2024 9:45 AM EDT Results Only [place] [facility] [address] [place] [address] CBC/CMP(S)* [place] [facility] Comment on above: CBC/CMP(S)* Start: 01-01-2024 End: 01-01-2024 Patient encounter procedure 01/01/2024 11:45 AM EDT Appointment Radiology [address] [place] [address] MRI Brain Radiology Comment on above: MRI Brain Start: 12-27-2023 End: 12-27-2023 ambulatory 12/27/2023 2:00 PM EDT Visit (SP) Office Hematology/Oncology [address] [place] [address] Raven East DO [address] [place] [address] ADD ON/DOUBLE BOOK OK PER 12/26/23 TE* Hematology/Oncology Comment on above: ADD ON/DOUBLE BOOK O K PER 12/26/23 TE* Start: 11-23-2023 End: 11-23-2023 ambulatory [place] [facility] Comment on above: (SO)CBC/CMP(S)/MG(S) * 3 WK OV/LABS EARLY/C T 11/21* ok per pm Start: 11-22-2023 End: 11-22-2023 Follow-up encounter 11/22/2023 1:00 PM EDT [facility] Radiation Oncology [address] [place] [address] Caitlin Bravo MD [address] [place] [address] 4 WK FOLLOW UP* Radiation Oncology Comment on above: 4 WK FOLLOW UP* Start: 11-22-2023 End: 11-22-2023 Patient encounter procedure Cat Scan Comment on above: Small cell lung canc er (HCC) [C34.90]; 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] Start: 11-01-2023 End: 11-01-2023 ambulatory [place] [facility] Comment on above: CBC/CMP/Mg* 6WK OV/LABS EARLY* Start: 10-25-2023 End: 10-25-2023 Patient encounter procedure 10/25/2023 11:15 AM EDT Appointment Radiation Oncology [address] [place] [address] Location: [facility] Radiation Oncology Comment on above: Location: [facility] Start: 08-24-2023 End: 11-23-2023 Basic metabolic 2000 panel - Serum or Plasma BASIC METABOLIC PNL Lab STAT Small cell lung cancer, unspecified laterality (HCC) Expected: 08/24/2023, Expires: 11/23/2023 [facility] Work Phone: Comment on above: Expected: 08/24/2023 , Expires: 11/23/2023 Start: 08-24-2023 End: 11-23-2023 CBC W Auto Differential panel - Blood CBC + DIFF Lab STAT Small cell lung cancer, unspecified laterality (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) Expected: 08/24/2023, Expires: 11/23/2023 [facility] Work Phone: Comment on above: Expected: 08/24/2023 , Expires: 11/23/2023 Start: 08-18-2023 Administration of bl ood product [facility] Start: 08-18-2023 [facility] Start: 08-17-2023 End: 11-16-2023 CBC W Auto Differential panel - Blood CBC + DIFF Lab STAT Small cell lung cancer, unspecified laterality (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) Expected: 08/17/2023, Expires: 11/16/2023 [facility] Work Phone: Comment on above: Expected: 08/17/2023 , Expires: 11/16/2023 Start: 07-03-2023 Behavioral Health Screening Behavioral Health Screening [facility] Start: 07-03-2023 Depression Assessment Depression Ass essment [facility] Start: 06-05-2023 End: 06-05-2023 Ct thorax w/contrast material CT, thorax; w contrast material(s)(25210)(ACR 9 )(DSN [id number])(G-Code G1004([place])) Date: 05-Jun-2023 Comments: Clinical Indications: Lymphadenopathy, chest or axilla [facility] Comment on above: Clinical Indications : Lymphadenopathy, chest or axilla Start: 06-01-2023 End: 08-31-2023 Chronic hepatitis differentiation between hepatitis B and C virus panel - Serum or Plasma [facility] Work Phone: Comment on above: Expected: 06/01/2023 , Expires: 08/31/2023 Start: 03-03-2023 Covid-19 Vaccine () Covid-19 Vaccine ( season) [facility] Start: 03-03-2023 Influenza vaccination Influenza Vacc ine (#1) [facility] Start: 07-03-2022 Depression Assessment Depression Ass essment [facility] Start: 03-25-2021 Hepatitis B Vaccine (2 of 3 - 19+ 3-dose series) Hepatitis B Vaccine (2 of 3 - 19+ 3-dose series) [facility] Start: 2015 Pneumococcal Vaccine : 50+ (1 of 1 - PCV) Pneumococcal Vaccine: 50+ (1 of 1 - PCV) [facility] Start: 2015 Shingrix Vaccine (1 of 2) Grande grix Vaccine (1 of 2) [facility] Start: 2010 Cologuard (FIT-DNA) Cologuard (FIT-D NA) [facility] Start: 2010 Colonoscopy Colonoscopy [facility] Start: 2010 Colorectal Cancer Screening Colorectal Cancer Screening [facility] Start: [address] [facility] Start: 2010 Diabetes Screening Diabetes Screenin g [facility] Start: 2010 Fecal Occult Blood Fecal Occult Bloo d [facility] Start: 2010 Lipid 1996 panel - S bonifacio or Plasma Lipid Screening [facility] Start: 2010 Lipid panel Lipid Screening [facility] Start: 2010 Screening for malign ant neoplasm of colon [facility] Start: 2010 Sigmoidoscopy Sigmoidoscopy [facility] Start: 08-20-2008 Pap Testing Pap Testing [facility] Start: 08-20-2008 Screening for malign ant neoplasm of cervix Pap Testing [facility] Start: 08-20-2006 Screening for malign ant neoplasm of cervix Cervical Cancer Screening [facility] Start: 2005 Mammography Mammogram Screening [facility] Start: 2005 Screening for malign ant neoplasm of breast Mammogram Screening [facility] Start: 08-20-2004 Screening for malign ant neoplasm of cervix Cervical Cancer Screening [facility] Start: 1995 HPV Testing HPV Testing [facility] Start: 1995 Screening for malign ant neoplasm of cervix HPV Testing [facility] Start: 02-07-1984 Pneumococcal Vaccine : 50+ (1 of 2 - PCV) Pneumococcal Vaccine: 50+ (1 of 2 - PCV) [facility] Start: 02-07-1984 Shingrix Vaccine (1 of 2) Grande grix Vaccine (1 of 2) [facility] Start: 1983 Anxiety Screening Anxiety Screening [facility] Start: 1983 Depression Screening Depression Scre ening [facility] Start: 1983 Hepatitis C Screening Hepatitis C Sc reening [facility] Start: 1983 HIV Screening HIV Screening [facility] Start: 1983 HIV screening HIV Screening [facility] Start: 1971 Pneumococcal vaccination [facility] Bacteria identified in Urine by Culture URINE CULTURE Microbiology Routine Flank pain 05/14/2024 12:12 PM EST [facility] End: 06-15-2024 Basic metabolic 2000 panel - Serum or Plasma BASIC METABOLIC PNL Lab STAT Small cell lung cancer (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) Once per week for 52 Occurrences starting 06/17/2023 until 06/15/2024 [facility] Work Phone: Comment on above: Once per week for 52 Occurrences starting 06/17/2023 until 06/15/2024 End: 06-15-2024 CBC W Auto Differential panel - Blood CBC + DIFF Lab STAT Small cell lung cancer (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) Every 3 weeks for 18 Occurrences starting 06/17/2023 until 06/15/2024 [facility] Work Phone: Comment on above: Every 3 weeks for 18 Occurrences starting 06/17/2023 until 06/15/2024 End: 08-29-2024 CBC W Auto Differential panel - Blood CBC + DIFF Lab STAT Small cell lung cancer (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) Anemia due to antineoplastic chemotherapy Once per week for 26 Occurrences starting 08/30/2023 until 08/29/2024 [facility] Work Phone: Comment on above: Once per week for 26 Occurrences starting 08/30/2023 until 08/29/2024 End: 06-15-2024 Comprehensive metabolic 2000 panel - Serum or Plasma COMP METABOLIC PANEL Lab STAT Small cell lung cancer (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) Every 3 weeks for 18 Occurrences starting 06/17/2023 until 06/15/2024 [facility] Work Phone: Comment on above: Every 3 weeks for 18 Occurrences starting 06/17/2023 until 06/15/2024 End: 09-21-2024 CT Abdomen and Pelvis W contrast IV CT ABD/PEL W IVCON Radiology Routine Malignant neoplasm of unspecified part of unspecified bronchus or lung (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) Small cell lung cancer (HCC) 1 Occurrences starting 08/24/2023 until 09/21/2024 [facility] Work Phone: Comment on above: 1 Occurrences starti ng 08/24/2023 until 09/21/2024 CT Abdomen and Pelvi s W contrast IV CT ABD/PEL W IVCON Radiology Routine Malignant neoplasm of unspecified part of unspecified bronchus or lung (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) Small cell lung cancer (HCC) 09/14/2023 12:18 PM EDT [facility] Work Phone: End: 12-01-2024 CT Abdomen and Pelvis W contrast IV CT ABD/PEL W IVCON Radiology STAT Small cell lung cancer (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) 1 Occurrences starting 11/01/2023 until 12/01/2024 [facility] Comment on above: 1 Occurrences starti ng 11/01/2023 until 12/01/2024 CT Abdomen and Pelvi s W contrast IV CT ABD/PEL W IVCON Radiology Routine Small cell lung cancer (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) 01/17/2024 11:41 AM EDT [facility] Work Phone: End: 03-02-2025 CT Abdomen and Pelvis W contrast IV CT ABD/PEL W IVCON Radiology Routine Small cell lung cancer, unspecified laterality (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) 1 Occurrences starting 02/01/2024 until 03/02/2025 [facility] Comment on above: 1 Occurrences starti ng 02/01/2024 until 03/02/2025 End: 06-01-2025 CT Abdomen and Pelvis W contrast IV CT ABD/PEL W IVCON Radiology Routine Small cell lung cancer, unspecified laterality (HCC) 1 Occurrences starting 05/02/2024 until 06/01/2025 [facility] Comment on above: 1 Occurrences starti ng 05/02/2024 until 06/01/2025 End: 12-07-2025 CT Abdomen and Pelvis W contrast IV CT ABD/PEL W IVCON Radiology Routine 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) 1 Occurrences starting 11/06/2024 until 12/07/2025 [facility] Comment on above: 1 Occurrences starti ng 11/06/2024 until 12/07/2025 CT Abdomen and Pelvi s W contrast IV CT ABD/PEL W IVCON Radiology Routine 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) 02/13/2025 10:42 AM T [facility] End: 09-22-2024 CT Chest W contrast IV CT CHEST W IVCON Radiology Routine Malignant neoplasm of unspecified part of unspecified bronchus or lung (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) Small cell lung cancer (HCC) 1 Occurrences starting 08/24/2023 until 09/22/2024 [facility] Work Phone: Comment on above: 1 Occurrences starti ng 08/24/2023 until 09/22/2024 CT Chest W contrast IV CT CHEST W IVCON Radiology Routine Malignant neoplasm of unspecified part of unspecified bronchus or lung (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) Small cell lung cancer (HCC) 09/14/2023 12:18 PM EDT [facility] Work Phone: End: 11-30-2024 CT Chest W contrast IV CT CHEST W IVCON Radiology STAT Small cell lung cancer (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) 1 Occurrences starting 11/01/2023 until 11/30/2024 [facility] Work Phone: Comment on above: 1 Occurrences starti ng 11/01/2023 until 11/30/2024 CT Chest W contrast IV CT CHEST W IVCON Radiology Routine Small cell lung cancer (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) 01/17/2024 11:41 AM T [facility] End: 03-01-2025 CT Chest W contrast IV CT CHEST W IVCON Radiology Routine Small cell lung cancer, unspecified laterality (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) 1 Occurrences starting 02/01/2024 until 03/01/2025 [facility] Work Phone: Comment on above: 1 Occurrences starti ng 02/01/2024 until 03/01/2025 CT Chest W contrast IV CT CHEST W IVCON Radiology Routine Small cell lung cancer, unspecified laterality (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) 04/25/2024 12:27 PM T [facility] Work Phone: End: 06-01-2025 CT Chest W contrast IV CT CHEST W IVCON Radiology Routine Small cell lung cancer, unspecified laterality (HCC) 1 Occurrences starting 05/02/2024 until 06/01/2025 [facility] Comment on above: 1 Occurrences starti ng 05/02/2024 until 06/01/2025 End: 12-06-2025 CT Chest W contrast IV CT CHEST W IVCON Radiology Routine 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) 1 Occurrences starting 11/06/2024 until 12/06/2025 [facility] Comment on above: 1 Occurrences starti ng 11/06/2024 until 12/06/2025 CT Chest W contrast IV CT CHEST W IVCON Radiology Routine 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) 02/13/2025 10:42 AM EDT [facility] Work Phone: CT Guidance for radi ation treatment of Unspecified body region CT SIM PLANNING RADIATION ONCOLOGY Radiology Routine Small cell lung cancer (HCC) Ordered: 10/24/2023 [facility] Work Phone: Comment on above: Ordered: 10/24/2023 End: 09-22-2024 CT Neck W contrast IV CT NECK SOFT TISSUE W IVCON Radiology Routine Malignant neoplasm of unspecified part of unspecified bronchus or lung (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) Small cell lung cancer (HCC) 1 Occurrences starting 08/24/2023 until 09/22/2024 [facility] Work Phone: Comment on above: 1 Occurrences starti ng 08/24/2023 until 09/22/2024 End: 11-30-2024 CT Neck W contrast IV CT NECK SOFT TISSUE W IVCON Radiology STAT Small cell lung cancer (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) 1 Occurrences starting 11/01/2023 until 11/30/2024 [facility] Comment on above: 1 Occurrences starti ng 11/01/2023 until 11/30/2024 End: 03-01-2025 CT Neck W contrast IV CT NECK SOFT TISSUE W IVCON Radiology Routine Small cell lung cancer, unspecified laterality (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) 1 Occurrences starting 02/01/2024 until 03/01/2025 [facility] Comment on above: 1 Occurrences starti ng 02/01/2024 until 03/01/2025 End: 06-01-2025 CT Neck W contrast IV CT NECK SOFT TISSUE W IVCON Radiology Routine Small cell lung cancer, unspecified laterality (HCC) 1 Occurrences starting 05/02/2024 until 06/01/2025 [facility] Comment on above: 1 Occurrences starti ng 05/02/2024 until 06/01/2025 End: 12-06-2025 CT Neck W contrast IV CT NECK SOFT TISSUE W IVCON Radiology Routine 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) 1 Occurrences starting 11/06/2024 until 12/06/2025 [facility] Work Phone: Comment on above: 1 Occurrences starti ng 11/06/2024 until 12/06/2025 CT SIM PLANNING RADI ATION ONCOLOGY CT SIM PLANNING RADIATION ONCOLOGY Radiology Routine Malignant neoplasm of unspecified part of unspecified bronchus or lung (HCC) Ordered: 06/12/2023 [facility] Work Phone: Comment on above: Ordered: 06/12/2023 End: 12-26-2024 ECG COMPLETE ECG COMPLETE ECG Routine Small cell lung cancer, unspecified laterality (HCC) 1 Occurrences starting 12/27/2023 until 12/26/2024 [facility] Work Phone: Comment on above: 1 Occurrences starti ng 12/27/2023 until 12/26/2024 ECG COMPLETE ECG COMPLETE ECG 12/27/2023 2:49 PM T [facility] Ferritin [Mass/volum e] in Serum or Plasma FERRITIN Lab Routine Malaise and fatigue 02/28/2025 11:39 AM EDT [facility] Iron and Iron bindin g capacity panel - Serum or Plasma IRON AND TIBC Lab Routine Malaise and fatigue 02/28/2025 11:39 AM T [facility] End: 06-01-2025 LUNG DIFFUSION CAPACITY (DLCO) LUNG DIFFUSION CAPACITY (DLCO) PFT Routine Small cell lung cancer, unspecified laterality (HCC) Dyspnea and respiratory abnormalities 1 Occurrences starting 05/02/2024 until 06/01/2025 [facility] Work Phone: Comment on above: 1 Occurrences starti ng 05/02/2024 until 06/01/2025 LUNG DIFFUSION CAPAC ITY (DLCO) LUNG DIFFUSION CAPACITY (DLCO) PFT Routine Small cell lung cancer, unspecified laterality (HCC) Dyspnea and respiratory abnormalities 05/06/2024 8:28 AM [facility] Work Phone: End: 06-15-2024 Magnesium [Mass/volume] in Serum or Plasma MAGNESIUM BLD Lab STAT Small cell lung cancer (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) Once per week for 52 Occurrences starting 06/17/2023 until 06/15/2024 [facility] Work Phone: Comment on above: Once per week for 52 Occurrences starting 06/17/2023 until 06/15/2024 End: 09-22-2024 MR Brain WO and W contrast IV MRI BRAIN WO/W IVCON Radiology Routine Malignant neoplasm of unspecified part of unspecified bronchus or lung (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) Small cell lung cancer (HCC) 1 Occurrences starting 08/24/2023 until 09/22/2024 [facility] Work Phone: Comment on above: 1 Occurrences starti ng 08/24/2023 until 09/22/2024 End: 01-25-2025 MR Brain WO and W contrast IV MRI BRAIN WO/W IVCON Radiology STAT Small cell lung cancer, unspecified laterality (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) 1 Occurrences starting 12/27/2023 until 01/25/2025 [facility] Comment on above: 1 Occurrences starti ng 12/27/2023 until 01/25/2025 End: 03-22-2026 MR Brain WO and W contrast IV MRI BRAIN WO/W IVCON Radiology Routine 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) Memory loss Confusion 1 Occurrences starting 02/20/2025 until 03/22/2026 [facility] Work Phone: Comment on above: 1 Occurrences starti ng 02/20/2025 until 03/22/2026 End: 09-26-2025 MR Lumbar spine WO and W contrast IV MRI LUMBAR SPINE WO/W IVCON Radiology STAT Small cell lung cancer (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) Acute right-sided low back pain without sciatica 1 Occurrences starting 08/27/2024 until 09/26/2025 [facility] Comment on above: 1 Occurrences starti ng 08/27/2024 until 09/26/2025 OUTSIDE VENDOR CARDI AC OUTPATIENT EXTENDED RHYTHM RECORDING (WITHOUT TELEMETRY) OUTSIDE VENDOR CARDIAC OUTPATIENT EXTENDED RHYTHM RECORDING (WITHOUT TELEMETRY) Holter Routine Orthostasis Small cell lung cancer, unspecified laterality (HCC) Ordered: 01/26/2024 [facility] Work Phone: Comment on above: Ordered: 01/26/2024 Patient Education ED [facility] Work Phone: End: 07-01-[address] attenuation whole body NM PET/CT WHOLE BODY INITIAL Radiology STAT Malignant neoplasm of unspecified part of unspecified bronchus or lung (HCC) 1 Occurrences starting 06/02/2023 until 07/01/2024 [facility] Work Phone: Comment on above: 1 Occurrences starti ng 06/02/2023 until 07/01/2024 End: 06-01-2025 SPIROMETRY - BASELINE AND POST DILATOR SPIROMETRY - BASELINE AND POST DILATOR PFT Routine Small cell lung cancer, unspecified laterality (HCC) Dyspnea and respiratory abnormalities 1 Occurrences starting 05/02/2024 until 06/01/2025 [facility] Comment on above: 1 Occurrences starti ng 05/02/2024 until 06/01/2025 SPIROMETRY - BASELIN E AND POST DILATOR SPIROMETRY - BASELINE AND POST DILATOR PFT Routine Small cell lung cancer, unspecified laterality (HCC) Dyspnea and respiratory abnormalities 05/06/2024 8:28 AM EST [facility] Work Phone: Stroke after atrial fibrillation 5 year risk [#] Naif 2003 IR PORTOCATH PLACEMENT Radiology Routine 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) Ordered: 02/20/2025 [facility] Comment on above: Ordered: 02/20/2025 T4/FTI/T4U T4/FTI/T4U Lab R outine Malaise and fatigue 02/28/2025 11:39 AM EDT [facility] Thyrotropin [Units/volume] in Serum or Plasma THYROID STIMULATING HORMONE Lab Routine Malaise and fatigue 02/28/2025 11:39 AM EDT [facility] Work Phone: End: 06-01-2025 XR Lumbar spine AP and Lateral XR LUMBAR LIMITED 2V AP/LAT Radiology Routine Small cell lung cancer, unspecified laterality (HCC) Acute right-sided low back pain without sciatica 1 Occurrences starting 05/02/2024 until 06/01/2025 [facility] Comment on above: 1 Occurrences starti ng 05/02/2024 until 06/01/2025 XR Lumbar spine AP a nd Lateral XR LUMBAR LIMITED 2V AP/LAT Radiology Routine Small cell lung cancer, unspecified laterality (HCC) Acute right-sided low back pain without sciatica 05/02/2024 12:28 PM EDT [facility] End: 09-26-2025 XR Lumbar spine AP and Lateral XR LUMBAR LIMITED 2V AP/LAT Radiology Routine Chronic midline low back pain without sciatica Small cell lung cancer, unspecified laterality (HCC) 1 Occurrences starting 08/27/2024 until 09/26/2025 [facility] Work Phone: Comment on above: 1 Occurrences starti ng 08/27/2024 until 09/26/2025 XR Lumbar spine AP a nd Lateral XR LUMBAR LIMITED 2V AP/LAT Radiology Routine Chronic midline low back pain without sciatica Small cell lung cancer, unspecified laterality (HCC) 08/27/2024 10:37 AM EST [facility] dexAMETHasone so d phos (bulk) 100 % powder Ordered: 31-Oct-2015 MD Chinyere Lara Kivra.; [employer] Player. dexAMETHasone so d phos (bulk) 100 % powder Ordered: 15-Jan-2016 MD Min Rodas Intent [employer] Player.; [employer] Player. Work Phone: dexAMETHasone so d phos (bulk) 100 % powder Ordered: 31-Aug-2016 MD Chinyere Lara Kivra.; [employer] Player. dexAMETHasone so d phos (bulk) 100 % powder Ordered: 25-Jan-2021 MD Chinyere Lara Kivra.; [employer]ky[employer] Player. [facility] Immunizations Immunization Date Immunization Notes Care Provider Fa lesleyty 02-25-2021 hepatitis B vaccine, adult dosage [facility] 02-25-2021 measles, mumps and rubella virus vaccine [facility] 02-16-2021 tetanus toxoid, redu norma diphtheria toxoid, and acellular pertussis vaccine, adsorbed [facility] 12-30-2013 measles, mumps and rubella virus vaccine Chinyere Lara MD [facility] Phone: [facility] Comment on above: Site: Posterior Uppe r Arm (Left)VIS Given: * Measles/Mumps/Rubella (MMR) (10/21/11) Payers Date Payer Category Payer Self-pay [id number] 2023 Private Health Insurance [id number] 2021 Private Health Insurance [id number] 2016 Unknown [id number] 1965 Unknown [id number] 1965 Unknown [id number] Private Health Insurance [id number] Unknown [id number] Unknown Unknown [id number] Unknown [id number] Unknown [id number] Social History Date Type Detail Facility Start: 01-19-2019 Tobacco smoking stat us NCIS Unknown if ever smoked [facility] Start: 1965 Sex Assigned At Female [facility] Start: 06-01-2023 End: 04-22-2025 Tobacco smoking status NHIS Ex-smoker [facility] Start: 05-27-1978 End: 05-27-2023 History of tobacco use Current smoker [facility] Start: 05-27-1978 End: 05-27-2023 History of tobacco use Cigarette Smoker [facility] Start: 06-01-2023 End: 02-18-2025 Cigarettes smoked current (pack per day) - Reported 1 [facility] [employer] Start: 06-01-2023 End: 02-21-2024 Tobacco use and exposure Smokeless tobacco non-user [facility] Start: 06-01-2023 End: 02-20-2025 Alcohol intake Current non-drinker of alcohol (finding) [facility] Start: 06-01-2023 End: 02-18-2025 Tobacco use panel [facility] Start: 06-03-2012 National Score (1-10 0), lower number is lower risk 67 [facility] Start: 07-08-2021 Gender identity Identifies as female gender (finding) [facility] Start: 07-08-2021 Sexual orientation Heterosexual (fin ding) [facility] Alcohol Use: Alcohol Use: ; 7 or fewer drinks per week. [facility] [employer] Tobacco Use: Tobacco Use: ; C urrent every day smoker. [employer] Start: 07-08-2021 Smokes tobacco daily [facility] Medical Equipment Procedure Code Equipment Code Equipment Origin al Text Equipment Identifier Dates Power Injectable Vaccess Ct Plastic 8f Chronoflex Catheter With Kit - [id number] Start: 02-24-2025 Goals Date Patient Goal Desired Activity /State Personal health goal Mental Status Date Assessment Result Facility 04-22-2025 Cognitive function Level Of Consciousness Awake [facility] Work Phone: 08-18-2023 Cognitive function Awake;Alert;A ppropriate;Follow s Commands [facility] Work Phone: Clinical Notes 05-31-2023 to 05-12-2025 Note Date & Type Note Facility 05-12-2025 Note Education (NUTRWS) KELLIE KANG I ([id number]) 1965 F T Date Time Provider Department 05/12/25 8:00 AM TERRENCE BRUNER Reason for Visit: Assessment [673] Patient Education [91] Primary Visit Diagnosis:Dietary counseling [Z71.3] Other Visit Diagnosis:Class 1 obesity without serious comorbidity with body mass index (BMI) of 34.0 to 34.9 in adult, unspecified obesity type [E66.811, Z68.34] Order(s):CONSULT TO NUTRITION THERAPY [9020] Order #: [id number]: 4 During your visit today, we recorded the following information about you: Weight Height 83.9 kg 1.575 m Allergies As of Date: 05/12/2025 (No Known Allergies) Date Reviewed: 05/12/2025 Reviewed by: Terrence Bruner RD - Fully Assessed Prescriptions as of 05/12/2025 - lidocaine-prilocaine (EMLA) 2.5-2.5 % cream Apply to affected area as needed. - cholecalciferol (VITAMIN D-3) 50 mcg (2,000 unit) tablet Take 1 tablet by mouth once daily. - iv contrast (will be provided with radiology test) CT Chest W -Inject, intravenously, once for 1 dose.No IV access, insert saline lock prior to the beginning of sedation, infusion, injection of imaging exam. Discontinue saline lock post exam. If Pt. has a central line or IVAD, may access for administration according to line specific nursing protocol. Once exam is complete flush line and de-access according to line specific nursing protocol in the CT contrast administration guidelines link. - iv contrast (will be provided with radiology test) CT ABD/PEL -Inject, intravenously, once for 1 dose.No IV access, insert saline lock prior to the beginning of sedation, infusion, injection of imaging exam. Discontinue saline lock post exam. If Pt. has a central line or IVAD, may access for administration according to line specific nursing protocol. Once exam is complete flush line and de-access according to line specific nursing protocol in the CT contrast administration guidelines link. - enteric contrast (will be provided with radiology test) For CT ABD/PEL W IVCON Routine order Administer, As Directed One Time Only, via Oral, Rectal, both Oral and Rectal, Enteric Tube, Stoma or Indwelling Catheter, Enteric Contrast as designated per enteric contrast guidelines - acetaminophen with codeine (TYLENOL-CODEINE #3 ORAL) Take by mouth as needed. - docusate sodium (COLACE) 100 mg capsule Take 100 mg by mouth once daily. - acetaminophen (TYLENOL) 325 mg tablet Take 650 mg by mouth every 6 hours as needed. - vitamin B complex (B COMPLEX ORAL) Take 1 tablet by mouth once daily. Encounter Status:Closed by TERRENCE BRUNER on 05/12/25 [facility] 05-12-2025 Note HNO ID: [id number] Author: TERRENCE BRUNER RD Service: ? Author Type: Registered Dietitian Type: Progress Notes Filed: 05/12/2025 12:38 Note Text: 8:00 AM Nutrition Therapy Initial Assessment Nutrition Diagnosis: Overweight/obesity, related to, excess energy intake and physical inactivity, as evidenced by BMI above normative standard for age and gender. RECOMMENDED MALNUTRITION DIAGNOSIS: NO MALNUTRITION IDENTIFIED NUTRITION CARE PLAN Nutrition Intervention 05/12/2025: modify type and amount of food or beverage Rec approx ~1300 calories for weight loss If snack needed make protein based (see handout for ideas) keep snack 100-150 calories All beverages calorie free and sugar free, try Great Value [place] drink mix Follow 2000 mg sodium or less per handouts, include approx 2-3 oz protein in meals All meals and snacks at the dinner table; minimize distractions, no TV while eating. Make meals last at least 20 min, chew each bite of food 20 x per bite.Portion out all foods, never eat out of container. Become more mindful of meal: Enjoy flavors, textures etc. Use hunger/fullness scale. MIND Diet Guidelines Emphasis on plant-based foods: Fruits, vegetables (especially leafy greens and berries), whole grains, nuts, and seeds. Limited consumption of animal products: Lean meats, poultry, and low-fat dairy products. Use of olive oil as the primary cooking oil: Provides healthy fats and antioxidants. Inclusion of brain-healthy nutrients: [place]-3 fatty acids (consider fish oil supplement or vegan option and Shawn and Flax seeds) , vitamin E (, Almonds, Hazelnuts, Peanuts, Greenlee seeds, and Flaxseeds; Leafy Green Vegetables: spinach, kale, robert greens, turnip greens, and asparagus) . folate (, Dark leafy green vegetables (e.g., spinach, kale, robert greens); Legumes (e.g., lentils, beans, peas); Fortified grains (e.g., bread, pasta, rice); Nuts and seeds (e.g., sunflower seeds, almonds); Fruits (e.g., oranges, bananas)and polyphenols. Restriction of unhealthy foods: Processed meats, sugary drinks, refined grains, and unhealthy fats. Increase exercise to at least 30 min cardio most days and 2-3 days of weight resistance Nutrition Monitoring AND Evaluation: weight loss and adherence to recommendations Need for Follow up: 6-8 weeks Patient presents for initial MNT as relates to class 1 obesity Body mass index is 33.84 kg/m?. Had gained 40 lbs with treatment for lung cancer and lymph node CA, was drinking Boost through treatment . Other medical issues stage 3a CKD, memory issues/brain function, IBS. Comfortable weight 140 lbs. Having back and knee pain with increased weight. Continues to follow with oncology. Intake generally appropriate in eating 3 meals and an afternoon snack if truly hungry. Likely excess energy and high sodium foods from meals on weekends, includes sugar sweetened orange drink daily and exercise and activity less than recommended. Patient's symptoms are: Weight Concerns: weight gain and failure to lose weight Diet History: Breakfast - protein oats with berries, Immanuel D 16 oz Snack - no Lunch - Lean Cuisine fajita, water Snack - sometimes - deciphers if hungry vs craving, if hungry will have a granola bar or handful tomatoes or apple in caramel Dinner - Lean Cuisine mac and cheese, water (does not eat after 6) Snack - no Beverages - water, Immanuel D, occ milk Alcohol- no Vitamins/Supplements - D3, B Complex Spouse brings home pizza or other take out often Does not like fish/seafood Activity: Activities of Daily Living: 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 Resting Metabolic Rate: 1366 Malnutrition Screening Significant unintentional weight loss? No Eating less than 75% of usual intake for more than 2 weeks? No Potential Signs of Inflammation: no identifiable sources Food Insecurity: Patient Declined (04/15/2025) Hunger Vital Sign Worried About Running Out of Food in the Last Year: Patient declined Ran Out of Food in the Last Year: Patient declined Education Materials Provided: Healthy Lunch/Dinner Plate and Snack Ideas and Your Sodium Controlled Diet READINESS TO LEARN Cognitive ability: Alert and oriented Motivation to learn: Interested Family support: Unable to assess - Family not present Instruction provided to: Patient Patient learns best by: Individual Instruction Factors affecting learning: None Physical limitations affecting learning: None Referred/Supervised by: Ad MCKENZIE Billing Type: Initial Assess 3 units 8:47 Total Ti (more content not included)... [facility] 04-22-2025 Discharge summary [facility] 04-22-2025 Discharge summary Note Date/Time April 22, 2025 4:01pm [facility] Medical Records Department [address] [place] [address] Emergency Department Summary 04/22/25 MR#: [id number] Acct: [id number] Name: KELLIE KANG Rep #:[id number] : 1965 60 From: Osman Pelletier MD PCP: Werner Baptiste MD Status:REG ER Location: ED HPI History of Present Illness Chief Complaint: Weakness Detail of Chief Complaint: Multiple types of cancer with weakness and numbness upper extremities Informant: patient Onset/Context/Timing Onset: Today Context: Sudden Onset Timing: Continuous Quality: Pins and needle burning numb sensation Location: Both upper extremities Current Severity: Moderate Maximum Severity: Severe Worsened by: Nothing Relieved by: Nothing Associated Symptoms Associated Symptoms: None Narrative Narrative: Patient is a 60-year-old woman. She has history of small cell carcinoma of the lung, thyroid cancer, lymphoma who presents with numbness tingling burning sensation of right and left upper extremity. She states started today got worseseveral hours prior to presentation. She complains of weakness in the arms as well. She denies headache, double vision, blurred vision loss of vision. [place] ringing or ears decreased hearing. No trouble with speech or swallowing. She denies chest discomfort, pressure, tightness or heaviness. She denies shortness of breath or difficulty breathing. Denies pleuritic chest pain. Denies abdominal pain, nausea, vomit or diarrhea. She denies dysuria, frequency, urgency or hematuria. She denies weakness or numbness in her lower extremities. Denies trouble with coordination or balance. Prior similar symptoms: Yes (At the time of my exit interview she states has been going on for a year an) Recent Illness/Hospitalization: No PFSH PFSH Medical History COPD (chronic obstructive pulmonary disease) Lymphoma Small cell lung cancer Home Medications ?Medication ?Instructions ?Recorded ?Last Taken ?Type olanzapine 5 mg tablet 5 mg PO DAILY 08/18/23 Unkno wn History ondansetron 8 mg disintegrating 8 mg PO Q8H 08/18/23 U nknown History tablet prochlorperazine maleate 10 mg 10 mg PO BID PRN nausea and 08/18/23 Unknown History tablet (Compazine) vomiting cholecalciferol (vitamin D3) 50 50 mcg PO DAILY Unknown History mcg (2,000 unit) capsule (Vitamin D3) metoprolol succinate 25 mg 25 mg PO DAILY 03/05/24 Unk nown History tablet,extended release 24 hr nitrofurantoin macrocrystal 100 mg 100 mg PO BID 7 day s #14 caps 03/05/24 Unknown Rx capsule ondansetron 4 mg disintegrating 4 mg PO Q8H PRN PRN Na usea #10 tabs 03/05/24 Unknown Rx tablet Allergy/AdvReac Type Severity Reaction Status Date / Time No Known Allergies Allergy Verified 12/13/23 17:12 Family History Father Myocardial infarction Surgical History Hx of neck surgery History of ankle surgery History of hysterectomy History of herniorrhaphy Hx of right knee surgery History of section Social History Smoking Status: Former smoker ROS ROS ED Constitutional Constitutional ED: Denies chills, fever(s), subjective, sweats or weight loss Eyes Eyes: Denies blurry vision, change in vision or diplopia ENT ENT ED: Denies ear pain, rhinorrhea or sore throat Cardiovascular Cardiovascular: Denies chest pain, orthopnea, palpitations or paroxysmal nocturnal dyspnea Respiratory/Chest Respiratory/Chest: Denies cough, dyspnea, dyspnea on exertion, orthopnea or paroxysmal nocturnal dyspnea Gastrointestinal Gastrointestinal: Denies abdominal pain, nausea or vomiting Genitourinary Genitourinary ED: Denies dysuria, hematuria or urinary frequency Musculoskeletal Musculoskeletal: Denies arthralgias, back pain, myalgias or neck pain Integumentary Denies abscess or rash Neurologic Neurologic: Reports headache(s), paresthesias RUE and LUE and weakness Psychiatric Psychiatric: Reports depression; Denies anxiety Hematologic/Lymphatic Hematologic/Lymphatic: Reports systems reviewed and no addt'l complaints, exceptas documented EXAM Physical Exam Const Vital Signs: 04/22/25 11:38 04/22/25 11:44 04/22/25 12:30 Temperature 97.9 F Temperature Source Oral Pulse Rate 66 71 Respiratory Rate 18 14 Respiratory Effort Normal Non-Labored Respiratory Pattern Normal Blood Pressure 139/79 H 130/66 H Blood Pressure Mean 99 85 Pulse Ox 100 100 Oxygen Delivery Method Room Air 04/22/25 13:00 04/22/25 13:15 04/22/25 13:30 Temperature Temperature Source Pulse Rate 70 70 68 Respiratory Rate 15 20 H 15 Respiratory Effort Respiratory Pattern Blood Pressure 118/67 123/64 H 120/70 Blood Pressure Mean 82 81 85 Pulse Ox 98 99 98 Oxygen Delivery Method 04/22/25 13:45 Temperature Temperature Source Pulse Rate 65 Respiratory Rate 12 Respiratory Effort Respiratory Pattern Blood Pressure Blood Pressure Mean Pulse Ox 97 Oxygen Delivery Method Positive well nourished and well developed Constitutional Narrative: Patient has a flat affect. Mood is depressed. Slow psychomotor skills. Speechis slow and soft. General Appearance ED: well developed, NAD and pallor HEENT Reports moist mucous membranes HEENT Narrative: Head is atraumatic normocephalic. Ears normal. Nares are patent. Posterior pharynx is normal. Uvula is midline. No deviation tongue protrusion. Negative for trauma or tenderness Eyes PERRL and EOMs intact bilaterally General Eye ED: Negative for pale conjunctiva or scleral icterus Neck no lymphadenopathy, supple and no JVD Resp normal respiratory effort and clear to auscultation bilaterally Cardio regular rate, regular rhythm, S1 normal heart sound, S2 normal heart sound and no murmurs Back/Spine no CVA tenderness Cervical Spine: Negative for cervical spine tenderness Thoracic Spine / Upper Back: Negative for thoracic spinal tenderness Extremity normal to inspection General Extremety ED: Negative for edema or tenderness General Extremity: Negative for edema Neuro oriented x3 and CN's II-XII intact bilaterally Neuro Narrative: Altered sensation both upper extremities. Bicep, brachialis, tricep, patella and ankle reflex are 2+ and symmetric. Thereis no clonus or Babinski sign noted. There is no dysmetria. Patient has no obvious weakness right or left. There is slight difference because she is right-hand dominant. Motor Exam: strength 5/5 throughout Psych Mood & Affect: depressed Skin no rashes or lesions noted, no wounds and skin turgor normal General Skin Exam: pallor; Negative for elasticity normal or jaundice MDM MDM MDM Narrative Medical decision making narrative: Need to consider pathology of the neck. Patient had negative Paulo's test right and left. Movement of her neck and rotation of her neck does not cause any worsening symptoms of her arms. Imaging of the neck was not obtained. Willobtain a CBC to assess for macrocytosis which may indicate possible vitamin deficiency. Also obtain electrolytes to assess sodium, calcium and alkaline phosphatase in light of the fact that she has 3 types of cancer. At the time my exit reviewed the patient and her informed he displayed going on for a year and Dr. Raven East has not been able to determine the etiology. History & Record Review Additional record(s) reviewed:: Prior ED visit (Patient was seen March [address] Cox for dehydration. She was seen December [address] Caballero.) Lab Data Attestation: I reviewed the patient's lab results. Lab results narrative: CBC is a marker for mild anemia. This is unchanged from prior. Electrolyte panel with slight elevation glucose of 150. She does not have a history of diabetes. This will need to be assessed by her primary care physician. Labs: Laboratory Results - last 24 hr 04/22/25 12:43 WBC 4.8 RBC 3.74 L Hgb 11.3 L Hct 34.3 L MCV 91.7 MCH 30.2 MCHC 32.9 RDW Std Deviation 42.9 RDW Coeff of Robert 12.9 Plt Count 234 MPV 9.6 Immature Gran % (Auto) 0.400 Neut % (Auto) 66.8 Lymph % (Auto) 18.9 L Mcnairy % (Auto) 9.9 Eos % (Auto) 3.2 Baso % (Auto) 0.8 Absolute Neuts (auto) 3.2 Absolute Lymphs (auto) 0.90 Nucleated RBC % 0 Sodium 140 Potassium 3.8 Chloride 106 Carbon Dioxide 24.4 Anion Gap 10 BUN 19 Creatinine 1.11 Estim Creat Clear Calc 56.67 Est GFR (MDRD) Non-Af 57 L BUN/Creatinine Ratio 16.9 Glucose 150 H Calcium 9.2 Total Bilirubin 0.22 AST 26 ALT 21 Alkaline Phosphatase 57 Total Protein 6.7 Albumin 4.2 Globulin 2.5 Albumin/Globulin Ratio 1.7 Discharge Plan Triage Chief Complaint: Weakness ED Provider: Osman Pelletier Dx/Rx/DC Orders Clinical Impression: Paresthesia and pain of both upper extremities, Small cell lung cancer, Lymphoma Instructions: ED Paresthesia Prescriptions: No Action olanzapine 5 mg tablet 5 mg PO DAILY Patient Comments: hasn't taken since tx prochlorperazine maleate [Compazine] 10 mg tablet 10 mg PO BID PRN (Reason: nausea and vomiting) Patient Comments: hasn't taken since tx ondansetron 8 mg tablet,disintegrating 8 mg PO Q8H Patient Comments: hasn't taken since tx Rx Instructions: 1st dose 1-2 hr before radiation metoprolol succinate 25 mg tablet extended release 24 hr 25 mg PO DAILY cholecalciferol (vitamin D3) [Vitamin D3] 50 mcg (2,000 unit) capsule 50 mcg PO DAILY nitrofurantoin macrocrystal 100 mg capsule 100 mg PO BID 7 Days Qty: 14 0RF Rx Instructions: must administer with a meal/food ondansetron 4 mg tablet,disintegrating 4 mg PO Q8H PRN PRN (Reason: Nausea) Qty: 10 0RF Primary Care Provider: Werner Baptiste Referrals: Werner Baptiste MD [Primary Care Provider, Family Practice] - 1 Week Raven East DO [Med Staff - Active Staff, Oncology] - 1-2 Weeks Print Language: Mexican Disposition Disposition: Home, Self Care What to do if you have Problems For any increased pain, shortness of breath, bleeding, nausea or vomiting, chestpain, or any unexpected problems, contact your Primary Care Provider. Call [facility] ([phone]) or report to the closest Emergency Room. Call 911 if necessary. 04/22/25 1501 <Electronically signed by Osman Pelletier MD> Cosigner Signature (if applicable): CC: Werner Baptiste MD ~ Signed [facility] Work Phone: [phone] 560-658910-16-2025 NoteHNO ID: [id number] Author: WERNER BAPTISTE MD Service: ? Author Type: Physician Type: Progress Notes Filed: 04/17/2025 10:54 Note Text: Family Medicine OUTPATIENT VISIT April 17, 2025 CC: Establish care HPI: 60 year old female patient with a history of Former smoker (45 pack yr) Hx Limited stage small cell lung cancer, metastatic, completed chemo and radiation cisplatin etoposide 08/26 COPD Chronic pain on Tylenol-codeine for chronic back pain. Followed by pain management. CKD 3a IBS on colace Knee OA, follows with ortho Here to establish care First diagnosed in 2022. Remission 05/26. Undergoing workup with onc for PET scan with pretracheal lymph node with mild increased uptake. On his review of imaging, there is inflammation around the biceps tendon. Possible getting biopsy in June if repeat CT showing enlarging nodes. Very mild shortness of breath when doing very strenusous exercises but never chest pain, coughing, wheezing, fevers, chills, and this is not progressive. Normal stress test 03/26. 05/26 spirometry normal test vs mild obstruction. 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 GENERAL: No weight loss, or fevers HEENT: Negative for frequent or significant headaches RESPIRATORY: Negative for cough, wheezing, shortness of breath CARDIOVASCULAR: Negative for chest pain, palpitations, PND or orthopnea GI: No nausea, vomiting, or diarrhea or abdominal pain. No IA bleeding or melana : No history of dysuria, frequency, urgency, or change in urine appearance NEURO: No history of headaches,, weakness, or changes to vision or hearing Health maintenance: Depression Screening Never done Anxiety Screening Never done HIV Screening Never done Lipid Screening Never done Shingrix Vaccine(1 of 2) Never done Pneumococcal Vaccine: 50+(1 of 1 - PCV) Never done Covid-19 Vaccine(2024- season) due on 03/03/2025 Mammogram Screening due on 06/02/2025 Allergies: ALLERGIES No Known Allergies Medications: lidocaine-prilocaine (EMLA) 2.5-2.5 % cream Apply to affected area as needed. cholecalciferol (VITAMIN D-3) 50 mcg (2,000 unit) tablet Take 1 tablet by mouth once daily. acetaminophen with codeine (TYLENOL-CODEINE #3 ORAL) Take by mouth as needed. docusate sodium (COLACE) 100 mg capsule Take 100 mg by mouth once daily. acetaminophen (TYLENOL) 325 mg tablet Take 650 mg by mouth every 6 hours as needed. vitamin B complex (B COMPLEX ORAL) Take 1 tablet by mouth once daily. Blood Pressure Test Kit-Large Use as directed for blood pressure monitoring iv contrast (will be provided with radiology test) CT Chest W -Inject, intravenously, once for 1 dose.No IV access, insert saline lock prior to the beginning of sedation, infusion, injection of imaging exam. Discontinue saline lock post exam. If Pt. has a central line or IVAD, may access for administration according to line specific nursing protocol. Once exam is complete flush line and de-access according to line specific nursing protocol in the CT contrast administration guidelines link. iv contrast (will be provided with radiology test) CT ABD/PEL -Inject, intravenously, once for 1 dose.No IV access, insert saline lock prior to the beginning of sedation, infusion, injection of imaging exam. Discontinue saline lock post exam. If Pt. has a central line or IVAD, may access for administration according to line specific nursing protocol. Once exam is complete flush line and de-access according to line specific nursing protocol in the CT contrast administration guidelines link. 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 Author Type: Physician Type: Progress Notes Filed: 04/17/2025 13:51 Note Text: Oncologic problem(s): 1) Limited stage small cell lung cancer. HPI: The patient is a 60-year-old female former smoker who under presented for evaluation of right neck mass. Right lower neck mass for about a month. Saw Dr. Lara who ordered CT neck. She had a CT of the neck with contrast enhancement on 05/12/2023. This study revealed a nodule in the thyroid, right-sided gland measuring 9 x 6 mm. There is heterogeneity versus second nodule in the left thyroid. Measurements were not rendered. There was right supraclavicular adenopathy, level 4B measuring 4.1 x 2.0 cm. There is mass effect and moderate narrowing of the right jugular vein and an adjacent enlarged lymph node measuring 1.3 x 1.6 cm. There is brachial enlarged lymph nodes measuring 1.3 x 1.3. Note was made of anterior cervical fusion hardware and previous discectomy changes at L5-6. Emphysematous changes were noted in the lung apices. Patient underwent FNA of the right-sided cervical adenopathy on 05/19/2023. Pathology: Positive for malignant cells. 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 Per initial consultation: had Covid. She got symptoms 05/24. Tested positive that day. Sore throat, headache, fever and malaise. Symptoms resolved except fatigue. No change in chronic cough from COPD. Rarely productive. Wheezes ( calls her wheezy). Mild JO. Hasn't had to stop any activity. 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 No issues with stairs, etc. Normal appetite. Neck pain. Pain in right chest (3-4 years; stress test okay). Used to come and go. Now seems to radiate down from the neck mass. COPE in right occipital area. Comes and go for about month. Quit smoking at time of diagnosis. Smoked a ppd for about 45 years. No alcohol. . Three older children. Previous therapy: 1) Concurrent chemotherapy and radiation with cisplatin etoposide. Completed chemotherapy 08/31/2023. Presents for ongoing oncologic management. Interim history: Still getting migratory COPE. Persisting a little longer, but relived with Tylenol. Still has trouble with thinking of the right words. Fatigued. 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 Discontinue saline lock post exam. If Pt. has a central line or IVAD, may access for administration according to line specific nursing protocol. Once exam is complete flush line and de-access according to line specific nursing protocol in the CT contrast administration guidelines link. iv contrast (will be provided with radiology test) CT ABD/PEL -Inject, intravenously, once for 1 dose.No IV access, insert saline lock prior to the beginning of sedation, infusion, injection of imaging exam. Discontinue saline lock post exam. If Pt. has a central line or IVAD, may access for administration according to line specific nursing protocol. Once exam is complete flush line and de-access according to line specific nursing protocol in the CT contrast administration guidelines link. enteric contrast (will be provided with radiology test) For CT ABD/PEL W IVCON Routine order Administer, As Directed One Time Only, via Oral, Rectal, both Oral and Rectal, Enteric Tube, Stoma or Indwelling Catheter, Enteric Contrast as designated per enteric contrast guidelines acetaminophen with codeine (TYLENOL-CODEINE #3 ORAL) Take by mouth as needed. cholecalciferol, vitamin D3, (VITAMIN D3 ORAL) Take 50 mcg by mouth once daily. docusate sodium (COLACE) 100 mg capsule Take 100 mg by mouth once daily. acetaminophen (TYLENOL) 325 mg tablet Take 650 mg by mouth every 6 hours as needed. vitamin B complex (B COMPLEX ORAL) Take 1 tablet by mouth once daily. No current facility-administered medications for this visit. Social History Tobacco Use Smoking status: Former Current packs/day: 0.00 Average packs/day: 1 pack/day for 45.0 years (45.0 ttl pk-yrs) Types: Cigarettes Start date: 05/27/1978 Quit date: 05/27/2023 Years since quittin.8 Smokeless tobacco: Never Vaping Use V (more content not included)...[facility]10-05-2025 NoteHNO ID: [id number] Author: JONNY ANDUJAR RT(R) Service: ? Author Type: Lot Porter Type: Progress Notes Filed: 04/06/2025 11:38 Note Text: RADIOLOGY SERVICE PROGRESS NOTE SERVICE DATE: 04/06/2025 SERVICE TIME: 11:38 AM PATIENT IDENTITY VERIFICATION COMPLETED USING TWO (2) STANDARD IDENTIFIERS: Name and Date of confirmed by patient verbally and Name and Date of confirmed by identification band FALL SCREENING: Has the patient had 2 falls in the last year or 1 fall with injury or currently using an Ambulatory Assistive Device (Walker, Cane, Wheelchair, Crutches, etc.)? No PATIENT GENDER DATA: .female NA ALLERGIES: NA MEDICATIONS REVIEWED: Not applicable PATIENT RELEVANT IMPLANT DATA REVIEWED: Not Applicable PATIENT PRESENTS WITH AN IMPLANTABLE OR ATTACHED PRINCIPAL ACCOUNT CLERK: NA CREATININE: Creatinine Date Value Ref Range Status 03/20/2025 1.20 (H) 0.58 - 0.96 mg/dL Final 02/13/2025 1.32 (H) 0.58 - 0.96 mg/dL Final 10/30/2024 1.23 (H) 0.58 - 0.96 mg/dL Final Estimated Glomerular Filtration Rate Date Value Ref Range Status 03/20/2025 52 (L) >=60 mL/min/1.73m? Final Comment: Estimated Glomerular Filtration Rate (eGFR) is calculated using the 2020 CKD-EPI creatinine equation. This equation utilizes serum creatinine, sex, and age as parameters. The creatinine assay has traceable calibration to isotope dilution-mass spectrometry. Refer to KDIGO guidelines for clinical interpretation. In patients with unstable renal function, e.g. those with acute kidney injury, the eGFR may not accurately reflect actual GFR. P.O.C.T. RESULTS: POC done: Yes, See Lab Tab April 06, [address] PERFORMED: No IV SITE: Ambulatory: A peripheral IV was started in the Right hand with a Angio cath: 24 gauge. POST EXAM PIV STATUS: Discontinued PROCEDURE TYPE: NM INJECT: PET/CT BODY SCAN. 9 mCi F18 FDG. Administered By: [id number] . No other medications given.. ADMINISTRATION TIME: 1130 PATIENT DISCHARGED TO: Ambulatory patient, left CT department area. Is this a therapy: No A Diagnostic radioactive procedure has taken place, with no further precautions necessary other than routine body substance precautions. More information regarding radiation safety can be found using this link: [email or web address] SIGNATURE: RT Vahid(R) PATIENT NAME: Kellie Kang DATE: April 06, 2025 TIME: 11:38 AM PAGER/CONTACT #:[facility]09-18-2025 NoteHNO ID: [id number] Author: RAVEN EAST DO Service: ? Author Type: Physician Type: Progress Notes Filed: 03/20/2025 12:42 Note Text: Oncologic problem(s): 1) Limited stage small cell lung cancer. HPI: The patient is a 60-year-old female former smoker who under presented for evaluation of right neck mass. Right lower neck mass for about a month. Saw Dr. Lara who ordered CT neck. She had a CT of the neck with contrast enhancement on 05/12/2023. This study revealed a nodule in the thyroid, right-sided gland measuring 9 x 6 mm. There is heterogeneity versus second nodule in the left thyroid. Measurements were not rendered. There was right supraclavicular adenopathy, level 4B measuring 4.1 x 2.0 cm. There is mass effect and moderate narrowing of the right jugular vein and an adjacent enlarged lymph node measuring 1.3 x 1.6 cm. There is brachial enlarged lymph nodes measuring 1.3 x 1.3. Note was made of anterior cervical fusion hardware and previous discectomy changes at L5-6. Emphysematous changes were noted in the lung apices. Patient underwent FNA of the right-sided cervical adenopathy on 05/19/2023. Pathology: Positive for malignant cells. 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 Per initial consultation: had Covid. She got symptoms 05/24. Tested positive that day. Sore throat, headache, fever and malaise. Symptoms resolved except fatigue. No change in chronic cough from COPD. Rarely productive. Wheezes ( calls her wheezy). Mild JO. Hasn't had to stop any activity. 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 No issues with stairs, etc. Normal appetite. Neck pain. Pain in right chest (3-4 years; stress test okay). Used to come and go. Now seems to radiate down from the neck mass. COPE in right occipital area. Comes and go for about month. Quit smoking at time of diagnosis. Smoked a ppd for about 45 years. No alcohol. . Three older children. Previous therapy: 1) Concurrent chemotherapy and radiation with cisplatin etoposide. Completed chemotherapy 08/31/2023. Presents for ongoing oncologic management. Interim history: Stable dyspnea with stairs. Trying to lose weight. STM subjectively stable. Seeing CPM for chronic LBP. Had b/l lumbar medial branch block at L4-S1. Helped quite a bit. 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 cholecalciferol, vitamin D3, (VITAMIN D3 ORAL) Take 50 mcg by mouth once daily. docusate sodium (COLACE) 100 mg capsule Take 100 mg by mouth once daily. acetaminophen (TYLENOL) 325 mg tablet Take 650 mg by mouth every 6 hours as needed. vitamin B complex (B COMPLEX ORAL) Take 1 tablet by mouth once daily. No current facility-administered medications for this visit. Social History Tobacco Use Smoking status: Former Current packs/day: 0.00 Average packs/day: 1 pack/day for 45.0 years (45.0 ttl pk-yrs) Types: Cigarettes Start date: 05/27/1978 Quit date: 05/27/2023 Years since quittin.8 Smokeless tobacco: Never Vaping Use Vaping status: Never Used Substance Use Topics Alcohol use: No Drug use: No Family History Problem Relation Age of Onset Cancer Mother leukemia Heart Father [place] other (respiratory failure) Sister Genitourinary () Paternal Grandfather Mother age 51 from leukemia. ROS: Constitutional: Normal appetite. HEENT: No recent change in voice, vision or hearing. Resp: See above. CVS: No exertional chest pain, PND or orthopnea. No extremity swelling/edema. No symptoms of claudication. No painful or tender varicose veins. GI: No dysphagia or odynophagia. No reflux. IBS--has always tended more towards constipation. : No dysuria or gross hematuria. No symptoms of bladder outlet obstruction. Endo: No hot flashes. No polyuria or polydipsia. No heat or cold intolerance. Derm: No current rash. No history of jaundice. No diffuse pruritis. Heme: No unusual bleeding and unexplained bruising. Psych: Normal mood. PHYSICAL EXAM: Vitals: Blood pressure 113/80, pulse 73, temperature 36.7 ?C (98.1 ?F), resp. rate 12, weight 85.7 kg (189 lb), SpO2 96%. Well-appearing and in no acute distress. EYES: Sclerae are anicteric bilaterally. LYMPHATIC: No cervical or supraclavicular adenopathy.. RESPIRATORY: Inspiratory b (more content not included)...[facility]09-03-2025 History of Present illness Narrative* Werner Rush, (R) - 03/05/2025 3:00 PM EDT Radiology Service Progress Note PATIENT NAME: Kellie Kang DATE OF SERVICE: March 05, 2025 TIME: 2:56 PM PATIENT IDENTITY VERIFICATION COMPLETED USING TWO (2) IDENTIFIERS: Name and Date of confirmedby patient verbally. FALL SCREENING: Has the patient had 2 falls in the last year or 1 fall with injury or currently using an Ambulatory Assistive Device (Walker, Cane, Wheelchair, Crutches, etc.)? No PATIENT GENDER DATA: Assigned female at . status: : No status:NO. PATIENT RELEVANT IMPLANT DATA REVIEWED: Yes PATIENT PRESENTS WITH AN IMPLANTABLE OR ATTACHED PRINCIPAL ACCOUNT CLERK: No RADIOLOGY DEPARTMENT: MR; Exam(s) Completed: Head: Routine Brain. Anesthesia: No. Aromatherapy Administered: No PERIPHERAL IV DATA: Site assessment: Clean,Dry and Intact, Site disposition Discontinued SIGNED BY: RT Ino(R) March 05, 2025 2:56 PM [facility] NoteHNO ID: [id number] Author: WERNER RUSH RT(R) Service: ? Author Type: Technologist Type: Progress Notes Filed: 03/05/2025 14:57 Note Text: Radiology Service Progress Note PATIENT NAME: Kellie Kang DATE OF SERVICE: March 05, 2025 TIME: 2:56 PM PATIENT IDENTITY VERIFICATION COMPLETED USING TWO (2) IDENTIFIERS: Name and Date of confirmed by patient verbally. FALL SCREENING: Has the patient had 2 falls in the last year or 1 fall with injury or currently using an Ambulatory Assistive Device (Walker, Cane, Wheelchair, Crutches, etc.)? No PATIENT GENDER DATA: Assigned female at . status: : No status: NO. PATIENT RELEVANT IMPLANT DATA REVIEWED: Yes PATIENT PRESENTS WITH AN IMPLANTABLE OR ATTACHED PRINCIPAL ACCOUNT CLERK: No RADIOLOGY DEPARTMENT: MR; Exam(s) Completed: Head: Routine Brain. Anesthesia: No. Aromatherapy Administered: No PERIPHERAL IV DATA: Site assessment: Clean,Dry and Intact, Site disposition Discontinued SIGNED BY: RT Ino(R) March 05, 2025 2:56 PMCS[facility] Telephone encounter Note* Telephone Encounter - Juliocesar Apple - 03/04/2025 2:15 PM EDT Scheduled. Patient informed [facility] Work Phone: 1(249) 577-209609-02-2025 Miscellaneous Notes* Telephone Encounter - Juliocesar Apple - 03/04/2025 2:15 PM EDT Scheduled. Patient informed * Telephone Encounter - Lei Palmer PSS - 03/04/2025 1:39 PM EDT Pt would like to use port for appt on 03/05/25 for MRI @ 3PM Please call pt to confirm time documented [facility] Telephone encounter Note * Telephone Encounter - Lei Palmer PSS - 03/04/2025 1:39 PM EDT Pt would like to use port for appt on 03/05/25 for MRI @ 3PM Please call pt to confirm time [facility]08-25-2025 Telephone encounter Note* Telephone Encounter - Carla Cruz - 02/24/2025 11:58 AM EDT Opened in error [facility]08-25-2025 Miscellaneous Notes* Telephone Encounter - Carla Cruz - 02/24/2025 11:58 AM EDT Opened in error documented in this [facility]25 Telephone encounter Note * Telephone Encounter - Linda Helms LPN - 02/21/2025 9:43 AM EDT Patient notified. Linda Helms LPN [facility]08-22-2025 Miscellaneous Notes* Telephone Encounter - Linda Helms LPN - 02/21/2025 9:43 AM EDT Patient notified. Linda Helms LPN * Telephone Encounter - Linda Helms LPN - 02/21/2025 9:42 AM EDT ----- Message from Raven East DO sent at 02/21/2025 8:08 AM EDT ----- Can let her know CTs showed no sign of recurrent cancer. Keep MRI brain as scheduled. ----- Message ----- From: Foster sDouza In Sent: 02/21/2025 7:55 AM EDT To: Raven East DO * Result Encounter Note - Raven East DO - 02/21/2025 8:08 AM EDT Can let her know CTs showed no sign of recurrent cancer. Keep MRI brain as scheduled. documented in this encounterSy[facility]08-22-2025 Telephone encounter Note * Telephone Encounter - Linda Helms LPN - 02/21/2025 9:42 AM EDT ----- Message from Raven East DO sent at 02/21/2025 8:08 AM EDT ----- Can let her know CTs showed no sign of recurrent cancer. Keep MRI brain as scheduled. ----- Message ----- From: Foster Dsouza In Sent: 02/21/2025 7:55 AM EDT To: Raven East DO [facility]08-22-2025 Progress note* Result Encounter Note - Raven East DO - 02/21/2025 8:08 AM EDT Can let her know CTs showed no sign of recurrent cancer. Keep MRI brain as scheduled. [facility]08-21-2025 NoteHNO ID: [id number] Author: RAVEN EAST DO Service: ? Author Type: Physician Type: Progress Notes Filed: 02/23/2025 17:40 Note Text: Oncologic problem(s): 1) Limited stage small cell lung cancer. HPI: The patient is a 60-year-old female former smoker who under presented for evaluation of right neck mass. Right lower neck mass for about a month. Saw Dr. Lara who ordered CT neck. She had a CT of the neck with contrast enhancement on 05/12/2023. This study revealed a nodule in the thyroid, right-sided gland measuring 9 x 6 mm. There is heterogeneity versus second nodule in the left thyroid. Measurements were not rendered. There was right supraclavicular adenopathy, level 4B measuring 4.1 x 2.0 cm. There is mass effect and moderate narrowing of the right jugular vein and an adjacent enlarged lymph node measuring 1.3 x 1.6 cm. There is brachial enlarged lymph nodes measuring 1.3 x 1.3. Note was made of anterior cervical fusion hardware and previous discectomy changes at L5-6. Emphysematous changes were noted in the lung apices. Patient underwent FNA of the right-sided cervical adenopathy on 05/19/2023. Pathology: Positive for malignant cells. 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 Per initial consultation: had Covid. She got symptoms 05/24. Tested positive that day. Sore throat, headache, fever and malaise. Symptoms resolved except fatigue. No change in chronic cough from COPD. Rarely productive. Wheezes ( calls her wheezy). Mild JO. Hasn't had to stop any activity. 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 No issues with stairs, etc. Normal appetite. Neck pain. Pain in right chest (3-4 years; stress test okay). Used to come and go. Now seems to radiate down from the neck mass. COPE in right occipital area. Comes and go for about month. Quit smoking at time of diagnosis. Smoked a ppd for about 45 years. No alcohol. . Three older children. Previous therapy: 1) Concurrent chemotherapy and radiation with cisplatin etoposide. Completed chemotherapy 08/31/2023. Presents for ongoing oncologic management. Interim history: Seeing Dr. Melchor for CPM. Has noticed a decline in energy. No more micro headaches. Gets occasional COPE more concentrated retro-orbital area and move toward the taoist. More forgetful and mildly confused at times. 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 cholecalciferol, vitamin D3, (VITAMIN D3 ORAL) Take 50 mcg by mouth once daily. iv contrast (will be provided with radiology test) CT Chest W -Inject, intravenously, once for 1 dose.No IV access, insert saline lock prior to the beginning of sedation, infusion, injection of imaging exam. Discontinue saline lock post exam. If Pt. has a central line or IVAD, may access for administration according to line specific nursing protocol. Once exam is complete flush line and de-access according to line specific nursing protocol in the CT contrast administration guidelines link. iv contrast (will be provided with radiology test) CT ABD/PEL -Inject, intravenously, once for 1 dose.No IV access, insert saline lock prior to the beginning of sedation, infusion, injection of imaging exam. Discontinue saline lock post exam. If Pt. has a central line or IVAD, may access for administration according to line specific nursing protocol. Once exam is complete flush line and de-access according to line specific nursing protocol in the CT contrast administration guidelines link. enteric contrast (will be provided with radiology test) For CT ABD/PEL W IVCON Routine order Administer, As Directed One Time Only, via Oral, Rectal, both Oral and Rectal, Enteric Tube, Stoma or Indwelling Catheter, Enteric Contrast as designated per enteric contrast guidelines docusate sodium (COLACE) 100 mg capsule Take 100 mg by mouth once daily. acetaminophen (TYLENOL) 325 mg tablet Take 650 mg by mouth every 6 hours as needed. vitamin B complex (B COMPLEX ORAL) Take 1 tablet by mouth once daily. metoprolol succinate ER (TOPROL XL) 25 mg 24 hr tablet Take 1 tablet by mouth once daily. (Patient not taking: Reported on 02/20/2025) No current facility-administered medications for this visit. Social History Tobacco Use Smoking status: Former Current packs/ (more content not included)...[facility] 02-20-2025 History of Present illness Narrative* Raven East, - 02/20/2025 11:55 AM EDT Oncologic problem(s): 1) Limited stage small cell lung cancer. HPI: The patient is a 60-year-old female former smoker who under presented for evaluation of right neck mass. Right lower neck mass for about a month. Saw Dr. Lara who ordered CT neck. She had a CT of the neck with contrast enhancement on 05/12/2023. This study revealed a nodule in the thyroid, right-sided gland measuring 9 x 6 mm. There is heterogeneity versus second nodule in theleft thyroid. Measurements were not rendered. There was right supraclavicular adenopathy, level 4B measuring 4.1 x 2.0 cm. There is mass effect and moderate narrowing of the right jugular vein and anadjacent enlarged lymph node measuring 1.3 x 1.6 cm. There is brachial enlarged lymph nodes measuring 1.3 x 1.3. Note was made of anterior cervical fusion hardware and previous discectomy changes at L5-6. Emphysematous changes were noted in the lung apices. Patient underwent FNA of the right-sided cervical adenopathy on 05/19/2023. Pathology: Positive for malignant cells. 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 Per initial consultation: had Covid. She got symptoms 05/24. Tested positive that day. Sore throat, headache, fever and malaise. Symptoms resolved except fatigue. No change in chronic cough from COPD. Rarely productive. Wheezes ( calls her wheezy). Mild JO. Hasn't had to stop any activity. 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 No issues with stairs, etc. Normal appetite. Neck pain. Pain in right chest (3-4 years; stress test okay). Used to come and go. Now seems to radiate down from the neck mass. COPE in right occipital area. Comes and go for about month. Quit smoking at time of diagnosis. Smoked a ppd for about 45 years. No alcohol. . Three older children. Previous therapy: 1) Concurrent chemotherapy and radiation with cisplatin etoposide. Completed chemotherapy 08/31/2023. Presents for ongoing oncologic management. Interim history: Seeing Dr. Melchor for CPM. Has noticed a decline in energy. No more micro headaches. Gets occasional COPE more concentrated retro-orbital area and move toward the taoist. More forgetful and mildly confused at times. 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 cholecalciferol, vitamin D3, (VITAMIN D3 ORAL) Take 50 mcg by mouth once daily. iv contrast (will be provided with radiology test) CT Chest W -Inject, intravenously, once for 1 dose.No IV access, insert saline lock prior to the beginning of sedation, infusion, injection of imaging exam. Discontinue saline lock post exam. If Pt. has a central line or IVAD, may access for administration according to line specific nursing protocol. Once exam is complete flush line and de-accessaccording to line specific nursing protocol in the CT contrast administration guidelines link. iv contrast (will be provided with radiology test) CT ABD/PEL -Inject, intravenously, once for 1 dose.No IV access, insert saline lock prior to the beginning of sedation, infusion, injection of imaging exam. Discontinue saline lock post exam. If Pt. has a central line or IVAD, may access for administration according to line specific nursing protocol. Once exam is complete flush line and de-accessaccording to line specific nursing protocol in the CT contrast administration guidelines link. enteric contrast (will be provided with radiology test) For CT ABD/PEL W IVCON Routine order Administer, As Directed One Time Only, via Oral, Rectal, both Oral and Rectal, Enteric Tube, Stoma or Indwelling Catheter, Enteric Contrast as designated per enteric contrast guidelines docusate sodium (COLACE) 100 mg capsule Take 100 mg by mouth once daily. acetaminophen (TYLENOL) 325 mg tablet Take 650 mg by mouth every 6 hours as needed. vitamin B complex (B COMPLEX ORAL) Take 1 tablet by mouth once daily. metoprolol succinate ER (TOPROL XL) 25 mg 24 hr tablet Take 1 tablet by mouth once daily. (Patient not taking: Reported on 02/20/2025) No current facility-administered medications for this visit. Social History Tobacco Use Smoking status: Former Current packs/day: 0.00 Average packs/day: 1 pack/day for 45.0 years (45.0 ttl pk-yrs) Types: Cigarettes Start date: 05/27/1978 Quit date: 05/27/2023 Years since quittin.7 Smokeless tobacco: Never Vaping Use Vaping status: Never Used Substance Use Topics Alcohol use: No Drug use: No Family History Problem Relation Age of Onset Cancer Mother leukemia Heart Father [place] other (respiratory failure) Sister Genitourinary () Paternal Grandfather Mother age 51 from leukemia. ROS: Constitutional: Normal appetite. HEENT: No recent change in voice, vision or hearing. Resp: See above. CVS: No exertional chest pain, PND or orthopnea. No extremity swelling/edema. No symptoms of claudication. No painful or tender varicose veins. GI: No dysphagia or odynophagia. No reflux. IBS--has always tended more towards constipation. : No dysuria or gross hematuria. No symptoms of bladder outlet obstruction. Endo: No hot flashes. No polyuria or polydipsia. No heat or cold intolerance. Derm: No current rash. No history of jaundice. No diffuse pruritis. Heme: No unusual bleeding and unexplained bruising. Psych: Normal mood. PHYSICAL EXAM: Vitals: Blood pressure 117/74, pulse 64, temperature 36.4 C (97.6 F), temperature source Temporal, height 163.2 cm (5' 4.25), weight 85.3 kg (188 lb), SpO2 99%. Well-appearing and in no acute distress. EYES: Sclerae are anicteric bilaterally. LYMPHATIC: No cervical or supraclavicular adenopathy.. RESPIRATORY: Inspiratory breath sounds are of diminished intensity in all mcelroy. CARDIOVASCULAR: Rhythm is regular. ABDOMEN: The abdomen is nondistended. SKIN: No jaundice. Neuro: No abnormal findings. IMAGING: PET scan 06/05/2023: IMPRESSION: * Hypermetabolic right lower cervical, mediastinal, and right hilar lymphadenopathy, compatible with biopsy-proven malignancy. * No discrete hypermetabolic pulmonary nodule/mass. * No FDG avid neoplastic process in the abdomen/pelvis. No suspicious FDG avid osseous lesion. 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 Limited stage. -Tolerated chemotherapy overall fairly well but was complicated by LUCIANA, dehydration, nausea (responded best to olanzapine). Dexamethasone made her very tremulous. -Post-therapy CTs demonstrated IA. -Completed PCI. -Reviewed CT images. Awaiting final read but all mediastinal tumor looks like still in response. -New STM loss and occasional confusion--new problem and may be related to PCI. -Plan imaging every 3 months first 2 years then 6 months for up to 5 years Plan: -MRI brain. -3 month follow up if above okay. Portions of this documentation were copied and pasted from my previous office visit note dated 11/06/2024 in order to provide a cohesive continuity of the history. The note has been reviewed and editedand updated as necessary. Raven East DO documented in this encounterSy[facility]08-14-2025 History of Present illness Narrative* Yasmin Hankins, RT(R) - 02/13/2025 10:20 AM EDT Radiology Service Progress Note DATE OF SERVICE: February 13, 2025 TIME: 3:05 PM PATIENT IDENTITY VERIFICATION COMPLETED USING TWO (2) STANDARD IDENTIFIERS: Name and Date of confirmed by patient verbally. FALL SCREENING: Has the patient had 2 falls in the last year or 1 fall with injury or currently using an Ambulatory Assistive Device (Walker, Cane, Wheelchair, Crutches, etc.)? No PATIENT GENDER DATA: Assigned female at . status: : No status:NO. PATIENT RELEVANT IMPLANT DATA REVIEWED: Yes PATIENT PRESENTS WITH AN IMPLANTABLE OR ATTACHED PRINCIPAL ACCOUNT CLERK: No ALLERGIES: Reviewed and unchanged CONTRAST ALLERGY: NO. EXAM: CT -CONTRAST INDUCED NEPHROPATHY RISK FACTORS: Patient age > 60 years CREATININE: Creatinine Date Value Ref Range Status 02/13/2025 1.32 (H) 0.58 - 0.96 mg/dL Final 10/30/2024 1.23 (H) 0.58 - 0.96 mg/dL Final 07/26/2024 1.10 (H) 0.58 - 0.96 mg/dL Final Estimated Glomerular Filtration Rate Date Value Ref Range Status 02/13/2025 46 (L) >=60 mL/min/1.73m Final Comment: Estimated Glomerular Filtration Rate (eGFR) is calculated using the 2020 CKD-EPI creatinine equation. This equation utilizes serum creatinine, sex, and age as parameters. The creatinine assay has traceable calibration to isotope dilution- mass spectrometry. Refer to KDIGO guidelines for clinical interpretation. In patients with unstable renal function, e.g. those with acute kidney injury, the eGFRmay not accurately reflect actual GFR. P.O.C.T. RESULTS: POC done: Yes, See Lab Tab February 13, 2025 TREATMENT: N/A PERIPHERAL IV DATA: Ambulatory: A peripheral IV was started in the Left antecubital site with a Angio cath: 22 gauge. RADIOLOGY DEPARTMENT: CT; Exam(s) Completed: Chest Abdomen Pelvis SIGNATURE: RT Tomeka(Ranjith) PATIENT NAME: Kellie Kang DATE: February 13, 2025 TIME: 3:05 PM documented in this encounterSycamore [facility] Center08-14-2025 NoteHNO ID: [id number] Author: YASMIN HANKINS RT(R) Service: ? Author Type: Lot Porter Type: Progress Notes Filed: 02/13/2025 15:05 Note Text: Radiology Service Progress Note DATE OF SERVICE: February 13, 2025 TIME: 3:05 PM PATIENT IDENTITY VERIFICATION COMPLETED USING TWO (2) STANDARD IDENTIFIERS: Name and Date of confirmed by patient verbally. FALL SCREENING: Has the patient had 2 falls in the last year or 1 fall with injury or currently using an Ambulatory Assistive Device (Walker, Cane, Wheelchair, Crutches, etc.)? No PATIENT GENDER DATA: Assigned female at . status: : No status: NO. PATIENT RELEVANT IMPLANT DATA REVIEWED: Yes PATIENT PRESENTS WITH AN IMPLANTABLE OR ATTACHED PRINCIPAL ACCOUNT CLERK: No ALLERGIES: Reviewed and unchanged CONTRAST ALLERGY: NO. EXAM: CT -CONTRAST INDUCED NEPHROPATHY RISK FACTORS: Patient age > 60 years CREATININE: Creatinine Date Value Ref Range Status 02/13/2025 1.32 (H) 0.58 - 0.96 mg/dL Final 10/30/2024 1.23 (H) 0.58 - 0.96 mg/dL Final 07/26/2024 1.10 (H) 0.58 - 0.96 mg/dL Final Estimated Glomerular Filtration Rate Date Value Ref Range Status 02/13/2025 46 (L) >=60 mL/min/1.73m? Final Comment: Estimated Glomerular Filtration Rate (eGFR) is calculated using the 2020 CKD-EPI creatinine equation. This equation utilizes serum creatinine, sex, and age as parameters. The creatinine assay has traceable calibration to isotope dilution-mass spectrometry. Refer to KDIGO guidelines for clinical interpretation. In patients with unstable renal function, e.g. those with acute kidney injury, the eGFR may not accurately reflect actual GFR. P.O.C.T. RESULTS: POC done: Yes, See Lab Tab February 13, 2025 TREATMENT: N/A PERIPHERAL IV DATA: Ambulatory: A peripheral IV was started in the Left antecubital site with a Angio cath: 22 gauge. RADIOLOGY DEPARTMENT: CT; Exam(s) Completed: Chest Abdomen Pelvis SIGNATURE: RT Tomeka(R) PATIENT NAME: Kellie Kang DATE: February 13, 2025 TIME: 3:05 [facility]05-07-2025 NoteHNO ID: [id number] Author: RAVEN EAST, DO Service: ? Author Type: Physician Type: Progress Notes Filed: 11/06/2024 10:05 Note Text: Oncologic problem(s): 1) Limited stage small cell lung cancer. HPI: The patient is a 59-year-old female former smoker who under presented for evaluation of right neck mass. Right lower neck mass for about a month. Saw Dr. Lara who ordered CT neck. She had a CT of the neck with contrast enhancement on 05/12/2023. This study revealed a nodule in the thyroid, right-sided gland measuring 9 x 6 mm. There is heterogeneity versus second nodule in the left thyroid. Measurements were not rendered. There was right supraclavicular adenopathy, level 4B measuring 4.1 x 2.0 cm. There is mass effect and moderate narrowing of the right jugular vein and an adjacent enlarged lymph node measuring 1.3 x 1.6 cm. There is brachial enlarged lymph nodes measuring 1.3 x 1.3. Note was made of anterior cervical fusion hardware and previous discectomy changes at L5-6. Emphysematous changes were noted in the lung apices. Patient underwent FNA of the right-sided cervical adenopathy on 05/19/2023. Pathology: Positive for malignant cells. 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 Per initial consultation: had Covid. She got symptoms 05/24. Tested positive that day. Sore throat, headache, fever and malaise. Symptoms resolved except fatigue. No change in chronic cough from COPD. Rarely productive. Wheezes ( calls her wheezy). Mild JO. Hasn't had to stop any activity. 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 No issues with stairs, etc. Normal appetite. Neck pain. Pain in right chest (3-4 years; stress test okay). Used to come and go. Now seems to radiate down from the neck mass. COPE in right occipital area. Comes and go for about month. Quit smoking at time of diagnosis. Smoked a ppd for about 45 years. No alcohol. . Three older children. Previous therapy: 1) Concurrent chemotherapy and radiation with cisplatin etoposide. Completed chemotherapy 08/31/2023. Presents for ongoing oncologic management. Interim history: Cervical LN self-resolved. Back pain unchanged. Seeing CPM. Dr. Melchor. No respiratory symptoms. Tires easily. Sensory neuropathy. 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 cholecalciferol, vitamin D3, (VITAMIN D3 ORAL) Take 1 tablet by mouth once daily. docusate sodium (COLACE) 100 mg capsule Take 100 mg by mouth once daily. metoprolol succinate ER (TOPROL XL) 25 mg 24 hr tablet Take 1 tablet by mouth once daily. (Patient taking differently: Take 25 mg by mouth once daily. 1/2 tablet in pm) acetaminophen (TYLENOL) 325 mg tablet Take 650 mg by mouth every 6 hours as needed. vitamin B complex (B COMPLEX ORAL) Take 1 tablet by mouth once daily. No current facility-administered medications for this visit. Social History Tobacco Use Smoking status: Former Current packs/day: 0.00 Average packs/day: 1 pack/day for 45.0 years (45.0 ttl pk-yrs) Types: Cigarettes Start date: 05/27/1978 Quit date: 05/27/2023 Years since quittin.4 Smokeless tobacco: Never Vaping Use Vaping status: Never Used Substance Use Topics Alcohol use: No Drug use: No Family History Problem Relation Age of Onset Cancer Mother leukemia Heart Father [place] other (respiratory failure) Sister Genitourinary () Paternal Grandfather Mother age 51 from leukemia. ROS: Constitutional: Normal appetite. HEENT: No recent change in voice, vision or hearing. Resp: See above. CVS: No exertional chest pain, PND or orthopnea. No extremity swelling/edema. No symptoms of claudication. No painful or tender varicose veins. GI: No dysphagia or odynophagia. No reflux. IBS--has always tended more towards constipation. : No dysuria or gross hematuria. No symptoms of bladder outlet obstruction. Endo: No hot flashes. No polyuria or polydipsia. No heat or cold intolerance. Derm: No current rash. No history of jaundice. No diffuse pruritis. Heme: No unusual bleeding and unexplained bruising. Psych: Normal mood. PHYSICAL EXAM: Vitals: Blood pressure 131/74, pulse 82, temperature 36.8 ?C (98.2 ?F), temperature source Temporal, weight 84.4 kg (186 lb), SpO2 96%. Well-appearing an (more content not included)...[facility] 11-06-2024 History of Present illness Narrative* Raven East, - 11/06/2024 9:47 AM EDT Oncologic problem(s): 1) Limited stage small cell lung cancer. HPI: The patient is a 59-year-old female former smoker who under presented for evaluation of right neck mass. Right lower neck mass for about a month. Saw Dr. Lara who ordered CT neck. She had a CT of the neck with contrast enhancement on 05/12/2023. This study revealed a nodule in the thyroid, right-sided gland measuring 9 x 6 mm. There is heterogeneity versus second nodule in theleft thyroid. Measurements were not rendered. There was right supraclavicular adenopathy, level 4B measuring 4.1 x 2.0 cm. There is mass effect and moderate narrowing of the right jugular vein and anadjacent enlarged lymph node measuring 1.3 x 1.6 cm. There is brachial enlarged lymph nodes measuring 1.3 x 1.3. Note was made of anterior cervical fusion hardware and previous discectomy changes at L5-6. Emphysematous changes were noted in the lung apices. Patient underwent FNA of the right-sided cervical adenopathy on 05/19/2023. Pathology: Positive for malignant cells. 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 Per initial consultation: had Covid. She got symptoms 05/24. Tested positive that day. Sore throat, headache, fever and malaise. Symptoms resolved except fatigue. No change in chronic cough from COPD. Rarely productive. Wheezes ( calls her wheezy). Mild JO. Hasn't had to stop any activity. 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 No issues with stairs, etc. Normal appetite. Neck pain. Pain in right chest (3-4 years; stress test okay). Used to come and go. Now seems to radiate down from the neck mass. COPE in right occipital area. Comes and go for about month. Quit smoking at time of diagnosis. Smoked a ppd for about 45 years. No alcohol. . Three older children. Previous therapy: 1) Concurrent chemotherapy and radiation with cisplatin etoposide. Completed chemotherapy 08/31/2023. Presents for ongoing oncologic management. Interim history: Cervical LN self-resolved. Back pain unchanged. Seeing CPM. Dr. Melchor. No respiratory symptoms. Tires easily. Sensory neuropathy. 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 cholecalciferol, vitamin D3, (VITAMIN D3 ORAL) Take 1 tablet by mouth once daily. docusate sodium (COLACE) 100 mg capsule Take 100 mg by mouth once daily. metoprolol succinate ER (TOPROL XL) 25 mg 24 hr tablet Take 1 tablet by mouth once daily. (Patient taking differently: Take 25 mg by mouth once daily. 1/2 tablet in pm) acetaminophen (TYLENOL) 325 mg tablet Take 650 mg by mouth every 6 hours as needed. vitamin B complex (B COMPLEX ORAL) Take 1 tablet by mouth once daily. No current facility-administered medications for this visit. Social History Tobacco Use Smoking status: Former Current packs/day: 0.00 Average packs/day: 1 pack/day for 45.0 years (45.0 ttl pk-yrs) Types: Cigarettes Start date: 05/27/1978 Quit date: 05/27/2023 Years since quittin.4 Smokeless tobacco: Never Vaping Use Vaping status: Never Used Substance Use Topics Alcohol use: No Drug use: No Family History Problem Relation Age of Onset Cancer Mother leukemia Heart Father [place] other (respiratory failure) Sister Genitourinary () Paternal Grandfather Mother age 51 from leukemia. ROS: Constitutional: Normal appetite. HEENT: No recent change in voice, vision or hearing. Resp: See above. CVS: No exertional chest pain, PND or orthopnea. No extremity swelling/edema. No symptoms of claudication. No painful or tender varicose veins. GI: No dysphagia or odynophagia. No reflux. IBS--has always tended more towards constipation. : No dysuria or gross hematuria. No symptoms of bladder outlet obstruction. Endo: No hot flashes. No polyuria or polydipsia. No heat or cold intolerance. Derm: No current rash. No history of jaundice. No diffuse pruritis. Heme: No unusual bleeding and unexplained bruising. Psych: Normal mood. PHYSICAL EXAM: Vitals: Blood pressure 131/74, pulse 82, temperature 36.8 C (98.2 F), temperature source Temporal, weight 84.4 kg (186 lb), SpO2 96%. Well-appearing and in no acute distress. EYES: Sclerae are anicteric bilaterally. LYMPHATIC: No cervical or supraclavicular adenopathy.. RESPIRATORY: Inspiratory breath sounds are of diminished intensity in all mcelroy. CARDIOVASCULAR: Rhythm is regular. ABDOMEN: The abdomen is nondistended. SKIN: No jaundice. IMAGING: PET scan 06/05/2023: IMPRESSION: * Hypermetabolic right lower cervical, mediastinal, and right hilar lymphadenopathy, compatible with biopsy-proven malignancy. * No discrete hypermetabolic pulmonary nodule/mass. * No FDG avid neoplastic process in the abdomen/pelvis. No suspicious FDG avid osseous lesion. 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 Limited stage. -Tolerated chemotherapy overall fairly well but was complicated by LUCIANA, dehydration, nausea (responded best to olanzapine). Dexamethasone made her very tremulous. -Post-therapy CTs demonstrated IA. -Completed PCI. - Reviewed CT results in detail. No change. -Plan imaging every 3 months first 2 years then 6 months for up to 5 years Plan: -Labs and repeat CTs in 3 months. Portions of this documentation were copied and pasted from my previous office visit note dated 08/27/2024 in order to provide a cohesive continuity of the history. The note has been reviewed and edited and updated as necessary. I spent a total of 20 minutes on the date of the service which included preparing to see the patient, [id number] patient care, completing clinical documentation, performing a medically appropriate examination, counseling and educating the patient/family/caregiver, ordering medications, tests, or p rocedures, communicating with other HCPs (not separately reported), and communicating results to the patient/family/caregiver. Raven East DO documented in this encounter[facility]04-30-[facility]25 History of Present illness Narrative* Reef Yasmin Ring RT(R) - 10/30/2024 10:40 AM EDT Radiology Service Progress Note DATE OF SERVICE: October 30, 2024 TIME: 2:43 PM PATIENT IDENTITY VERIFICATION COMPLETED USING TWO (2) STANDARD IDENTIFIERS: Name and Date of confirmed by patient verbally. FALL SCREENING: Has the patient had 2 falls in the last year or 1 fall with injury or currently using an Ambulatory Assistive Device (Walker, Cane, Wheelchair, Crutches, etc.)? No PATIENT GENDER DATA: Assigned female at . status: : No status:NO. PATIENT RELEVANT IMPLANT DATA REVIEWED: Yes PATIENT PRESENTS WITH AN IMPLANTABLE OR ATTACHED PRINCIPAL ACCOUNT CLERK: No ALLERGIES: Reviewed and unchanged CONTRAST ALLERGY: NO. EXAM: CT -CONTRAST INDUCED NEPHROPATHY RISK FACTORS: Not applicable CREATININE: Creatinine Date Value Ref Range Status 10/30/2024 1.23 (H) 0.58 - 0.96 mg/dL Final 07/26/2024 1.10 (H) 0.58 - 0.96 mg/dL Final 04/25/2024 1.20 (H) 0.58 - 0.96 mg/dL Final Estimated Glomerular Filtration Rate Date Value Ref Range Status 10/30/2024 51 (L) >=60 mL/min/1.73m Final Comment: Estimated Glomerular Filtration Rate (eGFR) is calculated using the 2020 CKD-EPI creatinine equation. This equation utilizes serum creatinine, sex, and age as parameters. The creatinine assay has traceable calibration to isotope dilution- mass spectrometry. Refer to KDIGO guidelines for clinical interpretation. In patients with unstable renal function, e.g. those with acute kidney injury, the eGFRmay not accurately reflect actual GFR. P.O.C.T. RESULTS: POC done: Yes, See Lab Tab October 30, 2024 TREATMENT: N/A PERIPHERAL IV DATA: Ambulatory: A peripheral IV was started in the Left antecubital site with a Angio cath: 22 gauge. RADIOLOGY DEPARTMENT: CT; Exam(s) Completed: Chest Abdomen Pelvis and Neck SIGNATURE: DANELLE Eckert) PATIENT NAME: Kellie Dick Girjeevan DATE: October 30, 2024 TIME: 2:43 PM documented in this encounterSycam[facility]04-30-2025 NoteHNO ID: [id number] Author: YASMIN HANKINS RT(R) Service: ? Author Type: Lot Porter Type: Progress Notes Filed: 10/30/2024 14:43 Note Text: Radiology Service Progress Note DATE OF SERVICE: October 30, 2024 TIME: 2:43 PM PATIENT IDENTITY VERIFICATION COMPLETED USING TWO (2) STANDARD IDENTIFIERS: Name and Date of confirmed by patient verbally. FALL SCREENING: Has the patient had 2 falls in the last year or 1 fall with injury or currently using an Ambulatory Assistive Device (Walker, Cane, Wheelchair, Crutches, etc.)? No PATIENT GENDER DATA: Assigned female at . status: : No status: NO. PATIENT RELEVANT IMPLANT DATA REVIEWED: Yes PATIENT PRESENTS WITH AN IMPLANTABLE OR ATTACHED PRINCIPAL ACCOUNT CLERK: No ALLERGIES: Reviewed and unchanged CONTRAST ALLERGY: NO. EXAM: CT -CONTRAST INDUCED NEPHROPATHY RISK FACTORS: Not applicable CREATININE: Creatinine Date Value Ref Range Status 10/30/2024 1.23 (H) 0.58 - 0.96 mg/dL Final 07/26/2024 1.10 (H) 0.58 - 0.96 mg/dL Final 04/25/2024 1.20 (H) 0.58 - 0.96 mg/dL Final Estimated Glomerular Filtration Rate Date Value Ref Range Status 10/30/2024 51 (L) >=60 mL/min/1.73m? Final Comment: Estimated Glomerular Filtration Rate (eGFR) is calculated using the 2020 CKD-EPI creatinine equation. This equation utilizes serum creatinine, sex, and age as parameters. The creatinine assay has traceable calibration to isotope dilution-mass spectrometry. Refer to KDIGO guidelines for clinical interpretation. In patients with unstable renal function, e.g. those with acute kidney injury, the eGFR may not accurately reflect actual GFR. P.O.C.T. RESULTS: POC done: Yes, See Lab Tab October 30, 2024 TREATMENT: N/A PERIPHERAL IV DATA: Ambulatory: A peripheral IV was started in the Left antecubital site with a Angio cath: 22 gauge. RADIOLOGY DEPARTMENT: CT; Exam(s) Completed: Chest Abdomen Pelvis and Neck SIGNATURE: RT Tomeka(R) PATIENT NAME: Kellie Kang DATE: October 30, 2024 TIME: 2:43 [facility]03-06-2025 Telephone encounter Note* Telephone Encounter - Payal Hilliard - 09/05/2024 9:59 AM EST Spoke w pt and she is scheduled in [place] for 10/09. Payal Hilliard [facility]03-06-2025 Miscellaneous Notes* Telephone Encounter - Payal Hilliard - 09/05/2024 9:59 AM EST Spoke w pt and she is scheduled in [place] for 10/09. Payal Hilliard * Telephone Encounter - Nelly Bernardo LPN - 09/05/2024 8:43 AM EST Patient is aware of all information and verbalized understanding. PSS- please contact patient to schedule with the spine center at [facility]. Nelly Bernardo LPN * Telephone Encounter - Raven East DO - 09/04/2024 5:25 PM EST Please let her know the MRI showed a lot of degenerative changes and one area where there is a pinched nerve. I got in touch with the spine center at [place]. She is an appropriate patient for them tosee to consider epidural injections. Referral order filed. Also I sent in Rx for Medrol Dosepak to see if that helps give her more relief until she is able to get an appointment. Raven East DO documented in this encounterSy[facility]03-06-2025 Telephone encounter Note * Telephone Encounter - Nelly Bernardo LPN - 09/05/2024 8:43 AM EST Patient is aware of all information and verbalized understanding. PSS- please contact patient to schedule with the spine center at [facility]. Nelly Bernardo LPN [facility]03-05-[facility] Telephone encounter Note* Telephone Encounter - Raven East DO - 09/04/2024 5:25 PM EST Please let her know the MRI showed a lot of degenerative changes and one area where there is a pinched nerve. I got in touch with the spine center at [place]. She is an appropriate patient for them tosee to consider epidural injections. Referral order filed. Also I sent in Rx for Medrol Dosepak to see if that helps give her more relief until she is able to get an appointment. Raven East DO [facility]03-05-[facility] History of Present illness Narrative* Dafne Toro, RT(R) - 09/04/2024 8:30 AM EST Radiology Service Progress Note DATE OF SERVICE: September 04, 2024 TIME: 8:37 AM PATIENT IDENTITY VERIFICATION COMPLETED USING TWO (2) STANDARD IDENTIFIERS: Name and Date of confirmed by patient verbally. FALL SCREENING: Has the patient had 2 falls in the last year or 1 fall with injury or currently using an Ambulatory Assistive Device (Walker, Cane, Wheelchair, Crutches, etc.)? No PATIENT GENDER DATA: Assigned female at . status: : No status:NO. PATIENT RELEVANT IMPLANT DATA REVIEWED: Yes PATIENT PRESENTS WITH AN IMPLANTABLE OR ATTACHED PRINCIPAL ACCOUNT CLERK: No ALLERGIES: Reviewed and unchanged CONTRAST ALLERGY: NO. EXAM: MRI - CONTRAST TYPE: GROUP II PERIPHERAL IV DATA: Ambulatory: A peripheral IV was started in the Left forearm with a Angio cath: 24 gauge. RADIOLOGY DEPARTMENT: MR; Exam(s) Completed: Spine: Lumbar spine SIGNATURE: RT Taj(Ranjith) PATIENT NAME: Kellie Kang DATE: September 04, 2024 TIME: 8:37 AM documented in this encounterSy[facility]03-05-2025 NoteHNO ID: [id number] Author: DAFNE TORO RT (R) Service: ? Author Type: Technologist Type: Progress Notes Filed: 09/04/2024 08:38 Note Text: Radiology Service Progress Note DATE OF SERVICE: September 04, 2024 TIME: 8:37 AM PATIENT IDENTITY VERIFICATION COMPLETED USING TWO (2) STANDARD IDENTIFIERS: Name and Date of confirmed by patient verbally. FALL SCREENING: Has the patient had 2 falls in the last year or 1 fall with injury or currently using an Ambulatory Assistive Device (Walker, Cane, Wheelchair, Crutches, etc.)? No PATIENT GENDER DATA: Assigned female at . status: : No status: NO. PATIENT RELEVANT IMPLANT DATA REVIEWED: Yes PATIENT PRESENTS WITH AN IMPLANTABLE OR ATTACHED PRINCIPAL ACCOUNT CLERK: No ALLERGIES: Reviewed and unchanged CONTRAST ALLERGY: NO. EXAM: MRI - CONTRAST TYPE: GROUP II PERIPHERAL IV DATA: Ambulatory: A peripheral IV was started in the Left forearm with a Angio cath: 24 gauge. RADIOLOGY DEPARTMENT: MR; Exam(s) Completed: Spine: Lumbar spine SIGNATURE: RT Taj(Ranjith) PATIENT [facility]: [facility] DATE: September 04, 2024 TIME: 8:37 [facility]02-27-2025 Telephone encounter Note* Telephone Encounter - Дмитрий Jesus Juliocesar - 08/29/2024 2:29 PM EST Patient scheduled appointment on 08/21 and canceled the 08/[address] Grande on 08/22 - reason shows Appointment Conflict. [facility] Work Phone: [phone] 131-476902-27-2025 Miscellaneous Notes* Telephone Encounter - Juliocesar Apple - 08/29/2024 2:29 PM EST Patient scheduled appointment on 08/21 and canceled the 08/[address] Grande on 08/22 - reason shows Appointment Conflict. * Telephone Encounter - Juliocesar Apple - 08/21/2024 8:32 AM EST 1st attempt. Message left for patient to schedule with Spine Center in [place]. * Telephone Encounter - Nelly Bernardo LPN - 08/20/2024 5:02 PM EST PSS- please contact patient to schedule with the spine center at [place]. Nelly Bernardo LPN * Telephone Encounter - Raven East DO - 08/20/2024 4:41 PM EST Thank you. Order filed. Raven East DO * Telephone Encounter - Nelly Bernardo LPN - 08/20/2024 11:56 AM EST Order pended. Nelly Bernardo LPN documented in this encounterSycam[facility] Center02-25-2025 History of Present illness Narrative* Juliocesar [place], RT(R) - 08/27/2024 10:30 AM EST Radiology Service Progress Note PATIENT NAME: Kellie Kang DATE OF SERVICE: August 27, 2024 TIME: 10:54 AM PATIENT IDENTITY VERIFICATION COMPLETED USING TWO (2) IDENTIFIERS: Name and Date of confirmedby patient verbally. FALL SCREENING: Has the patient had 2 falls in the last year or 1 fall with injury or currently using an Ambulatory Assistive Device (Walker, Cane, Wheelchair, Crutches, etc.)? No PATIENT GENDER DATA: Assigned female at . status: : No status:NO. PATIENT RELEVANT IMPLANT DATA REVIEWED: Not Applicable PATIENT PRESENTS WITH AN IMPLANTABLE OR ATTACHED PRINCIPAL ACCOUNT CLERK: No RADIOLOGY DEPARTMENT: LUMBAR AP/LAT WT BEARING PERIPHERAL IV DATA: Not applicable SIGNED BY: RT Thanh(Ranjith) August 27, 2024 10:54 AM documented in this encounterSycam[facility] Center02-25-2025 NoteHNO ID: [id number] Author: JULIOCESAR [place] RT(R) Service: ? Author Type: Technologist Type: Progress Notes Filed: 08/27/2024 10:54 Note Text: Radiology Service Progress Note PATIENT NAME: Kellie Kang DATE OF SERVICE: August 27, 2024 TIME: 10:54 AM PATIENT IDENTITY VERIFICATION COMPLETED USING TWO (2) IDENTIFIERS: Name and Date of confirmed by patient verbally. FALL SCREENING: Has the patient had 2 falls in the last year or 1 fall with injury or currently using an Ambulatory Assistive Device (Walker, Cane, Wheelchair, Crutches, etc.)? No PATIENT GENDER DATA: Assigned female at . status: : No status: NO. PATIENT RELEVANT IMPLANT DATA REVIEWED: Not Applicable PATIENT PRESENTS WITH AN IMPLANTABLE OR ATTACHED PRINCIPAL ACCOUNT CLERK: No RADIOLOGY DEPARTMENT: LUMBAR AP/LAT WT BEARING PERIPHERAL IV DATA: Not applicable SIGNED BY: RT Thanh(Ranjith) August 27, 2024 10:54 [facility]02-25-2025 NoteHNO ID: [id number] Author: RAVEN EAST, Service: ? Author Type: Physician Type: Progress Notes Filed: 08/27/2024 12:04 Note Text: Oncologic problem(s): 1) Limited stage small cell lung cancer. HPI: The patient is a 59-year-old female former smoker who under presented for evaluation of right neck mass. Right lower neck mass for about a month. Saw Dr. Lara who ordered CT neck. She had a CT of the neck with contrast enhancement on 05/12/2023. This study revealed a nodule in the thyroid, right-sided gland measuring 9 x 6 mm. There is heterogeneity versus second nodule in the left thyroid. Measurements were not rendered. There was right supraclavicular adenopathy, level 4B measuring 4.1 x 2.0 cm. There is mass effect and moderate narrowing of the right jugular vein and an adjacent enlarged lymph node measuring 1.3 x 1.6 cm. There is brachial enlarged lymph nodes measuring 1.3 x 1.3. Note was made of anterior cervical fusion hardware and previous discectomy changes at L5-6. Emphysematous changes were noted in the lung apices. Patient underwent FNA of the right-sided cervical adenopathy on 05/19/2023. Pathology: Positive for malignant cells. 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 Per initial consultation: had Covid. She got symptoms 05/24. Tested positive that day. Sore throat, headache, fever and malaise. Symptoms resolved except fatigue. No change in chronic cough from COPD. Rarely productive. Wheezes ( calls her wheezy). Mild JO. Hasn't had to stop any activity. 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 No issues with stairs, etc. Normal appetite. Neck pain. Pain in right chest (3-4 years; stress test okay). Used to come and go. Now seems to radiate down from the neck mass. COPE in right occipital area. Comes and go for about month. Quit smoking at time of diagnosis. Smoked a ppd for about 45 years. No alcohol. . Three older children. Previous therapy: 1) Concurrent chemotherapy and radiation with cisplatin etoposide. Completed chemotherapy 08/31/2023. Presents urgently today for a left neck lump. Interim history: She appreciated a lump in the lower part of her right neck. May have fluctuated in size. No recent symptoms of URI including sore throat. Lower back pain has gotten appreciably worse in the last few weeks. Sometimes when she turns, she describes a slipping sensation and has a severe exacerbation of pain when that occurs. Pain does not radiate down the legs. No leg weakness. 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 metoprolol succinate ER (TOPROL XL) 25 mg 24 hr tablet Take 1 tablet by mouth once daily. acetaminophen (TYLENOL) 325 mg tablet Take 650 mg by mouth every 6 hours as needed. vitamin B complex (B COMPLEX ORAL) Take 1 tablet by mouth once daily. acetylcysteine (NAC) 600 mg capsule Take 1,200 mg by mouth two times a day. (Patient not taking: Reported on 08/27/2024) Cholecalciferol, Vitamin D3, (VITAMIN D-3) 50 mcg (2,000 unit) cap Take 2,000 Units by mouth once daily. (Patient not taking: Reported on 08/27/2024) calcium citrate (CALCITRATE) 200 mg (950 mg) tab Take 950 mg by mouth two times a day. (Patient not taking: Reported on 08/27/2024) Magnesium Gluconate 30 mg (550 mg) tab Take 0.5 tablets by mouth two times a day. (Patient not taking: Reported on 08/27/2024) iv contrast (will be provided with radiology test) CT Chest W -Inject, intravenously, once for 1 dose.No IV access, insert saline lock prior to the beginning of sedation, infusion, injection of imaging exam. Discontinue saline lock post exam. If Pt. has a central line or IVAD, may access for administration according to line specific nursing protocol. Once exam is complete flush line and de-access according to line specific nursing protocol in the CT contrast administration guidelines link. (Patient not taking: Reported on 02/21/2024) iv contrast (will be provided with radiology test) CT ABD/PEL -Inject, intravenously, once for 1 dose.No IV access, insert saline lock prior to the beginning of sedation, infusion, injection of imaging exam. Discontinue saline lock post exam. If Pt. has a central line or IVAD, may access for administration according to line specific nursing protocol. Once exam is comple (more content not included)...[facility]02-25-2025 History of Present illness Narrative* Raven East DO - 08/27/2024 9:51 AM EST Oncologic problem(s): 1) Limited stage small cell lung cancer. HPI: The patient is a 59-year-old female former smoker who under presented for evaluation of right neck mass. Right lower neck mass for about a month. Saw Dr. Lara who ordered CT neck. She had a CT of the neck with contrast enhancement on 05/12/2023. This study revealed a nodule in the thyroid, right-sided gland measuring 9 x 6 mm. There is heterogeneity versus second nodule in theleft thyroid. Measurements were not rendered. There was right supraclavicular adenopathy, level 4B measuring 4.1 x 2.0 cm. There is mass effect and moderate narrowing of the right jugular vein and anadjacent enlarged lymph node measuring 1.3 x 1.6 cm. There is brachial enlarged lymph nodes measuring 1.3 x 1.3. Note was made of anterior cervical fusion hardware and previous discectomy changes at L5-6. Emphysematous changes were noted in the lung apices. Patient underwent FNA of the right-sided cervical adenopathy on 05/19/2023. Pathology: Positive for malignant cells. 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 Per initial consultation: had Covid. She got symptoms 05/24. Tested positive that day. Sore throat, headache, fever and malaise. Symptoms resolved except fatigue. No change in chronic cough from COPD. Rarely productive. Wheezes ( calls her wheezy). Mild JO. Hasn't had to stop any activity. 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 No issues with stairs, etc. Normal appetite. Neck pain. Pain in right chest (3-4 years; stress test okay). Used to come and go. Now seems to radiate down from the neck mass. COPE in right occipital area. Comes and go for about month. Quit smoking at time of diagnosis. Smoked a ppd for about 45 years. No alcohol. . Three older children. Previous therapy: 1) Concurrent chemotherapy and radiation with cisplatin etoposide. Completed chemotherapy 08/31/2023. Presents urgently today for a left neck lump. Interim history: She appreciated a lump in the lower part of her right neck. May have fluctuated in size. No recent symptoms of URI including sore throat. Lower back pain has gotten appreciably worse in the last few weeks. Sometimes when she turns, she describes a slipping sensation and has a severe exacerbation of pain when that occurs. Pain does not radiate down the legs. No leg weakness. 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 metoprolol succinate ER (TOPROL XL) 25 mg 24 hr tablet Take 1 tablet by mouth once daily. acetaminophen (TYLENOL) 325 mg tablet Take 650 mg by mouth every 6 hours as needed. vitamin B complex (B COMPLEX ORAL) Take 1 tablet by mouth once daily. acetylcysteine (NAC) 600 mg capsule Take 1,200 mg by mouth two times a day. (Patient not taking: Reported on 08/27/2024) Cholecalciferol, Vitamin D3, (VITAMIN D-3) 50 mcg (2,000 unit) cap Take 2,000 Units by mouth once daily. (Patient not taking: Reported on 08/27/2024) calcium citrate (CALCITRATE) 200 mg (950 mg) tab Take 950 mg by mouth two times a day. (Patient nottaking: Reported on 08/27/2024) Magnesium Gluconate 30 mg (550 mg) tab Take 0.5 tablets by mouth two times a day. (Patient not taking: Reported on 08/27/2024) iv contrast (will be provided with radiology test) CT Chest W -Inject, intravenously, once for 1 dose.No IV access, insert saline lock prior to the beginning of sedation, infusion, injection of imaging exam. Discontinue saline lock post exam. If Pt. has a central line or IVAD, may access for administration according to line specific nursing protocol. Once exam is complete flush line and de-accessaccording to line specific nursing protocol in the CT contrast administration guidelines link. (Patient not taking: Reported on 02/21/2024) iv contrast (will be provided with radiology test) CT ABD/PEL -Inject, intravenously, once for 1 dose.No IV access, insert saline lock prior to the beginning of sedation, infusion, injection of imaging exam. Discontinue saline lock post exam. If Pt. has a central line or IVAD, may access for administration according to line specific nursing protocol. Once exam is complete flush line and de-accessaccording to line specific nursing protocol in the CT contrast administration guidelines link. enteric contrast (will be provided with radiology test) For CT ABD/PEL W IVCON Routine order Administer, As Directed One Time Only, via Oral, Rectal, both Oral and Rectal, Enteric Tube, Stoma or Indwelling Catheter, Enteric Contrast as designated per enteric contrast guidelines iv contrast (will be provided with radiology test) CT Chest W -Inject, intravenously, once for 1 dose.No IV access, insert saline lock prior to the beginning of sedation, infusion, injection of imaging exam. Discontinue saline lock post exam. If Pt. has a central line or IVAD, may access for administration according to line specific nursing protocol. Once exam is complete flush line and de-accessaccording to line specific nursing protocol in the CT contrast administration guidelines link. iv contrast (will be provided with radiology test) CT ABD/PEL -Inject, intravenously, once for 1 dose.No IV access, insert saline lock prior to the beginning of sedation, infusion, injection of imaging exam. Discontinue saline lock post exam. If Pt. has a central line or IVAD, may access for administration according to line specific nursing protocol. Once exam is complete flush line and de-accessaccording to line specific nursing protocol in the CT contrast administration guidelines link. enteric contrast (will be provided with radiology test) For CT ABD/PEL W IVCON Routine order Administer, As Directed One Time Only, via Oral, Rectal, both Oral and Rectal, Enteric Tube, Stoma or Indwelling Catheter, Enteric Contrast as designated per enteric contrast guidelines albuterol HFA (PROVENTIL HFA, VENTOLIN HFA) 90 mcg/actuation inhaler Inhale 2 Puffs as instructed every 4 hours as needed. (Patient not taking: Reported on 02/21/2024) No current facility-administered medications for this visit. Social History Tobacco Use Smoking status: Former Current packs/day: 0.00 Average packs/day: 1 pack/day for 45.0 years (45.0 ttl pk-yrs) Types: Cigarettes Start date: 05/27/1978 Quit date: 05/27/2023 Years since quittin.2 Smokeless tobacco: Never Vaping Use Vaping status: Never Used Substance Use Topics Alcohol use: No Drug use: No Family History Problem Relation Age of Onset Cancer Mother leukemia Heart Father [place] other (respiratory failure) Sister Genitourinary () Paternal Grandfather Mother age 51 from leukemia. ROS: Constitutional: Normal appetite. HEENT: No recent change in voice, vision or hearing. Resp: See above. CVS: No exertional chest pain, PND or orthopnea. No extremity swelling/edema. No symptoms of claudication. No painful or tender varicose veins. GI: No dysphagia or odynophagia. No reflux. IBS--more constipation. : No dysuria or gross hematuria. No symptoms of bladder outlet obstruction. Endo: No hot flashes. No polyuria or polydipsia. No heat or cold intolerance. Derm: No current rash. No history of jaundice. No diffuse pruritis. Heme: No unusual bleeding and unexplained bruising. Psych: Much less anxious. PHYSICAL EXAM: Vitals: Blood pressure 126/85, pulse 68, temperature 37.3 C (99.1 F), temperature source Temporal, weight 84.4 kg (186 lb), SpO2 96%. Well-appearing and in no acute distress. EYES: Sclerae are anicteric bilaterally. LYMPHATIC: No adenopathy appreciated. She may have been feeling her right sternocleidomastoid muscle. RESPIRATORY: Inspiratory breath sounds are of diminished intensity in all mcelroy. CARDIOVASCULAR: Rhythm is regular. ABDOMEN: The abdomen is nondistended. Extremities: No swelling or edema. SKIN: No jaundice or rash. NEURO: No lower extremity weakness. MS: Tender over the lower lumbar spine. LABS: IMAGING: PET scan 06/05/2023: IMPRESSION: * Hypermetabolic right lower cervical, mediastinal, and right hilar lymphadenopathy, compatible with biopsy-proven malignancy. * No discrete hypermetabolic pulmonary nodule/mass. * No FDG avid neoplastic process in the abdomen/pelvis. No suspicious FDG avid osseous lesion. ASSESSMENT/PLAN: (C34.90) Small cell lung cancer (HCC) (primary encounter diagnosis) Assessment: -The patient is a 58-year-old female former, [id number] smoker with diagnosis of COPD who underwent evaluation for low right-sided cervical/supraclavicular adenopathy and was found to have small cell carcinoma. Limited stage. -Tolerated chemotherapy overall fairly well but was complicated by LUCIANA, dehydration, nausea (responded best to olanzapine). Dexamethasone made her very tremulous. -Posttherapy CTs demonstrated IA. -Completed PCI. -Recent CTs in July including neck demonstrated resolution of previous disease in the neck. Examtoday not concerning for adenopathy. Plan: -Advised her to contact the office if she has further swelling and/or pain in the right lower neck. -Labs and repeat CTs in 3-4 months. (M54.50) Acute right-sided low back pain without sciatica (M54.50, G89.29) Chronic midline low back pain without sciatica Assessment: -Significant worsening of her low back pain. -No red flag symptoms. -She had Tylenol with codeine on hand which she received when she was getting radiation. She had been given a prescription for 40 tablets. She had been using 1 at bedtime and has 1 tablet left. Allows her to sleep. -PDMP reviewed. Opiate agreement signed. -Discussed plan to obtain repeat lumbar x-ray today and set up for stat MRI of the lumbar spine. Plan: -Rx Tylenol 3 with codeine. -X-ray lumbar spine today. -MRI lumbar spine stat. Portions of this documentation were copied and pasted from my previous office visit note dated 05/02/2024 in order to provide a cohesive continuity of the history. The note has been reviewed and edited and updated as necessary. Raven East DO [facility] Tele[facility] encounter Note * Telephone Encounter - Lei Palmer PSS - 08/26/2024 2:21 PM EST Pt is aware [facility]02-[facility] Miscellaneous Notes* Telephone Encounter - Lei Palmer PSS - 08/26/2024 2:21 PM EST Pt is aware * Telephone Encounter - Lei Palmer PSS - 08/26/2024 9:39 AM EST CD READY FOR RENEWAL SPECIALIST AT [facility] * Telephone Encounter - Kacey Karimi - 08/23/2024 2:44 PM EST Kirt, Patient came in requesting a disc of her CT scans that were completed on 07/26/24 and 04/25/24. She said she will be back on 07/27/24, and [facility] Please advise, thank you! Kacey. documented in this [facility]Sy[facility] Telephone encounter Note * Telephone Encounter - Lei Palmer PSS - 08/26/2024 9:39 AM EST CD READY FOR RENEWAL SPECIALIST AT [facility]02-[facility] Telephone encounter Note* Telephone Encounter - Kacey Karimi - 08/23/2024 2:44 PM EST Kirt, Patient came in requesting a disc of her CT scans that were completed on 07/26/24 and 04/25/24. She said she will be back on 07/27/24, and [facility] Please advise, thank you! Kacey. [facility]02-[facility] Telephone encounter Note* Telephone Encounter - Juliocesar Apple - 08/21/2024 8:32 AM EST 1st attempt. Message left for patient to schedule with Spine Center in [place]. [facility]02-18-[facility] Telephone encounter Note* Telephone Encounter - Nelly Bernardo LPN - 08/20/2024 5:02 PM EST PSS- please contact patient to schedule with the spine center at [place]. Nelly Bernardo LPN [facility]02-18-2025 Telephone encounter Note* Telephone Encounter - Raven East DO - 08/20/2024 4:41 PM EST Thank you. Order filed. Raven East DO [facility]02-18-2025 Telephone encounter Note* Telephone Encounter - Nelly Bernardo LPN - 08/20/2024 11:56 AM EST Order pended. Nelly Bernardo LPN [address]18-2025 NoteHNO ID: [id number] Author: АЛЕКСАНДР DUGAN PT Service: ? Author Type: Physical Therapist Type: Progress Notes Filed: 08/20/2024 10:31 Note Text: Episode Visit Count: 5 Therapist That Will Accept/Oversee The Plan Of Care: Александр Dugan Start of Care Date: 06/11/24 Onset Date: 03/12/24 Patient Identified by Name and Date of : Yes REHABILITATION AND SPORTS THERAPY PHYSICAL THERAPY DISCONTINUANCE OF CARE PLAN OF CARE UPDATE: Assessment: Kellie Kang is discontinued from Physical Therapy services due to maximal benefit.. Patient was seen for 5 visits from Start of Care Date: 06/11/24 to 08/20/2024 and treatment included: Therapeutic exercise, Manual therapy, and Self-halfway management. Updated: 08/20/24. Goals for Episode of Care: established 06/11/24 Patient reported outcome of physical function will increase T-score by a minimum 5 points. (NOT MET) [place] in home exercise program. (Goal Met) Patient will decrease pain rating by 2 points to meet minimal clinical important difference for numeric pain rating scale. (NOT MET) Increase ROM of lumbar spine to WFL for all motions. (NOT MET) Increase strength of LB stabilizers and postural muscles to WFL for increased position tolerance. (NOT MET) Perform pain-free functional activity of sitting, sleeping, laying supine, walking AND standing. (NOT MET) Sleep through night without pain/symptoms. (NOT MET) Patient Goals: Feel better, less pain, move better. (NOT MET) SUBJECTIVE: Patient reports no improvement with conservative therapy so far. Her midline low back is sore all the time, not too much relief with therapy or any home remedies. States low back is not worse since starting PT, however has been unchanged. Has an appt with referring provider in october, looking to get this moved up as well as see a clinical documentation specialist.. Functional Limitations: standing, walking, lifting, physical activities, bending, sleeping (Lying, Trouble with Prolonged Standing.) Spine History Sleep Affected by Pain: Pain keeps from falling asleep, Pain awakens Pain: Pain Pain Level: 9 Pain Location: Low Back/Lumbar Spine- Midline Description: Sore, Aching Post Treatment Pain Post Treatment Pain Level: No Change Post Treatment Pain Location: Low Back/Lumbar Spine- Midline PROMIS Scales 08/09/2024 06/11/2024 Higher is Better Phys Func - T Score 38 (moderate dysfunction) 38 (moderate dysfunction) Phys Func - Percentile 12 12 Self-Eff Symptom - T Score 38 (Low) 41 (Average) Self-Eff Symptom - Percentile 12 18 Proxy-reported 06/11/2024 Lower is Better Pain Interference - T Score 61 (moderate) Pain Interference - Percentile 14 Proxy-reported T-scores: mean of general population = 50. 5 points is clinically meaningfully difference Percentiles provide an indication of how the patient's score ranks in relation to the general population. Higher percentile rankings indicate better function/quality of life. 50th percentile is the average of the general population and indicates half of respondents had a worse score. OBJECTIVE MEASURES WITH LEVEL OF FUNCTION: Spine Observations R Lumbar Spine Palpation Tenderness: Spinous process, PSIS (posterior superior iliac spine) L Lumbar Spine Palpation Tenderness: Spinous process, PSIS (posterior superior iliac spine) Lumbar Spine AROM Lumbar Flexion: Minimal limitation (Less ROM than eval.) Lumbar Extension: Moderate limitation, Increased pain, Pain during movement Lumbar R Side-Bend: Moderate limitation, Pain during movement Lumbar L Side-Bend: Moderate limitation, Pain during movement Lumbar R Rotation: Moderate limitation, Pain during movement Lumbar L Rotation: Moderate limitation, Pain during movement Lumbar Spine AROM Comments: Pain during return to erect from bent position. LE Strength R LE Strength: Grossly 4+/5 without myotomal differences. L LE Strength: Grossly 4+/5 without myotomal differences. Special Tests - Hip and Spine SLR Test: Right Positive, Left Positive JACQUELYN Test: Right Positive, Left Positive Gait Gait Observation: Antalgic; Decreased stance time b ilat. Decreased stride length bilat. Slowed abhishek with [id number] waddle. TREATMENT: Therapeutic Exercise: 1: Goals Assessed + Re-assessment AND discussion on patients progress. Discussed HEP continuation as tolerated and continued promoting active lifestyle as able. 2: Patient has seen no improvements in pain or function since starting therapy and has likely reached her maximum benefit with physical therapy at this time. Patient has an upcoming appt w/ referring provider and will follow up there for updated lizama of care. See also sent a message requesting order to see clinical documentation specialist. 3: Direct education to the patient on how to use mychart and message doctors questions. Discussed not abusing this ability AND emergent vs. non-emergent situations. Skilled Intervention: Pat (more content not included)...[facility]02-18-2025 History of Present illness Narrative* Александр Dugan, PT - 08/20/2024 9:46 AM EST Images from the original note were not included. Episode Visit Count: 5 Therapist That Will Accept/Oversee The Plan Of Care: Александр Dugan Start of Care Date: 06/11/24 Onset Date: 03/12/24 Patient Identified by Name and Date of : Yes REHABILITATION AND SPORTS THERAPY PHYSICAL THERAPY DISCONTINUANCE OF CARE PLAN OF CARE UPDATE: Assessment: Kellie Kang is discontinued from Physical Therapy services due to maximal benefit.. Patient was seen for 5 visits from Start of Care Date: 06/11/24 to 08/20/2024 and treatment included: Therapeutic exercise, Manual therapy, and Self-halfway management. Updated: 08/20/24. Goals for Episode of Care: established 06/11/24 Patient reported outcome of physical function will increase T-score by a minimum 5 points. (NOT MET) [place] in home exercise program. (Goal Met) Patient will decrease pain rating by 2 points to meet minimal clinical important difference for numeric pain rating scale. (NOT MET) Increase ROM of lumbar spine to WFL for all motions. (NOT MET) Increase strength of LB stabilizers and postural muscles to WFL for increased position tolerance. (NOT MET) Perform pain-free functional activity of sitting, sleeping, laying supine, walking & standing. (NOT MET) Sleep through night without pain/symptoms. (NOT MET) Patient Goals: Feel better, less pain, move better. (NOT MET) SUBJECTIVE: Patient reports no improvement with conservative therapy so far. Her midline low back is sore all the time, not too much relief with therapy or any home remedies. States low back is not worse since starting PT, however has been unchanged. Has an appt with referring provider in october, looking to get this moved up as well as see a clinical documentation specialist.. Functional Limitations: standing, walking, lifting, physical activities, bending, sleeping (Lying, Trouble with Prolonged Standing.) Spine History Sleep Affected by Pain: Pain keeps from falling asleep, Pain awakens Pain: Pain Pain Level: 9 Pain Location: Low Back/Lumbar Spine- Midline Description: Sore, Aching Post Treatment Pain Post Treatment Pain Level: No Change Post Treatment Pain Location: Low Back/Lumbar Spine- Midline PROMIS Scales 08/09/2024 06/11/2024 Higher is Better Phys Func - T Score 38 (moderate dysfunction) 38 (moderate dysfunction) Phys Func - Percentile 12 12 Self-Eff Symptom - T Score 38 (Low) 41 (Average) Self-Eff Symptom - Percentile 12 18 Proxy-reported 06/11/2024 Lower is Better Pain Interference - T Score 61 (moderate) Pain Interference - Percentile 14 Proxy-reported T-scores: mean of general population = 50. 5 points is clinically meaningfully difference Percentiles provide an indication of how the patient's score ranks in relation to the general population. Higher percentile rankings indicate better function/quality of life. 50th percentile is the average of the general population and indicates half of respondents had a worse score. OBJECTIVE MEASURES WITH LEVEL OF FUNCTION: Spine Observations R Lumbar Spine Palpation Tenderness: Spinous process, PSIS (posterior superior iliac spine) L Lumbar Spine Palpation Tenderness: Spinous process, PSIS (posterior superior iliac spine) Lumbar Spine AROM Lumbar Flexion: Minimal limitation (Less ROM than eval.) Lumbar Extension: Moderate limitation, Increased pain, Pain during movement Lumbar R Side-Bend: Moderate limitation, Pain during movement Lumbar L Side-Bend: Moderate limitation, Pain during movement Lumbar R Rotation: Moderate limitation, Pain during movement Lumbar L Rotation: Moderate limitation, Pain during movement Lumbar Spine AROM Comments: Pain during return to erect from bent position. LE Strength R LE Strength: Grossly 4+/5 without myotomal differences. L LE Strength: Grossly 4+/5 without myotomal differences. Special Tests - Hip and Spine SLR Test: Right Positive, Left Positive JACQUELYN Test: Right Positive, Left Positive Gait Gait Observation: Antalgic; Decreased stance time b ilat. Decreased stride length bilat. Slowed abhishek with [id number] waddle. TREATMENT: Therapeutic Exercise: 1: Goals Assessed + Re-assessment & discussion on patients progress. Discussed HEP continuation as tolerated and continued promoting active lifestyle as able. 2: Patient has seen no improvements in pain or function since starting therapy and has likely reached her maximum benefit with physical therapy at this time. Patient has an upcoming appt w/ referring provider and will follow up there for updated lizama of care. See also sent a message requesting order to see clinical documentation specialist. 3: Direct education to the patient on how to use mychart and message doctors questions. Discussednot abusing this ability & emergent vs. non-emergent situations. Skilled Intervention: Patient was educated in proper exercise technique and purpose for exercises. Skilled judgment was used in selection of appropriate interventions. Patient education as noted. Billing Therapeutic Exercise Treatment Minutes: 25 Skilled Treatment Time Minutes (timed and untimed codes): 25 Total Session Time (minutes): 25 Session Start Time : 1000 Session Stop Time : 1025 Александр Dugan PT documented [facility] NoteHNO ID: [id number] Author: KACEY ORANTES PT Service: ? Author Type: Physical Therapist Type: Progress Notes Filed: 08/16/2024 12:12 Note Text: Episode Visit Count: 4 Therapist That Will Accept/Oversee The Plan Of Care: Александр Dugan Start of Care Date: 06/11/24 Onset Date: 03/12/24 Patient Identified by Name and Date of : Yes REHABILITATION AND SPORTS THERAPY PHYSICAL THERAPY TREATMENT NOTE ASSESSMENT: Kellie Kang tolerated the session with fatigue and expected muscle soreness. She demonstrated difficulty with TA activation with LE marching due to discomfort in low back. The patient will continue to benefit from ongoing skilled physical therapy to progress toward set goals. PLAN FOR NEXT VISIT: PN SUBJECTIVE: Pt reports that her back is painful. Pt prefers seated exercises, eventhough pain is unchanged. Pt reports that she was bent over for a little bit this morning to trim her toenails and that may have aggrevated her back. Pain: Pain Pain Level: 9 Pain Location: Low Back/Lumbar Spine- Midline Post Treatment Pain Post Treatment Pain Level: No Change Post Treatment Pain Location: Low Back/Lumbar Spine- Midline OBJECTIVE MEASURES WITH LEVEL OF FUNCTION: TREATMENT: Therapeutic Exercise: 1: Seated TA activation 2x10 with 2-3 second holds 2: Seated TA activation with alt LE marching 2x5 B 3: Seated TA activation with alt UE 2x5 B 4: Seated PiTB perturbations 3x15 R,L, forward 5: Seated push into 55 cm physioball with TA activation 2x10 Skilled Intervention: Patient was educated in proper exercise technique and purpose for exercises. Skilled judgment was used in selection of appropriate interventions. Correct performance of therapeutic exercises was facilitated with verbal and visual cuing. Billing Therapeutic Exercise Treatment Minutes: 41 Skilled Treatment Time Minutes (timed and untimed codes): 41 Total Session Time (minutes): 41 Session Start Time : 1103 Session Stop Time : 1144 ZULEIMA Nguyen[facility] History of Present illness Narrative* Kacey Orantes PT - 08/16/2024 11:08 AM EST Episode Visit Count: 4 Therapist That Will Accept/Oversee The Plan Of Care: Александр Dugan Start of Care Date: 06/11/24 Onset Date: 03/12/24 Patient Identified by Name and Date of : Yes REHABILITATION AND SPORTS THERAPY PHYSICAL THERAPY TREATMENT NOTE ASSESSMENT: Kellie Kang tolerated the session with fatigue and expected muscle soreness. She demonstrated difficulty with TA activation with LE marching due to discomfort in low back. The patient will continue to benefit from ongoing skilled physical therapy to progress toward set goals. PLAN FOR NEXT VISIT: PN SUBJECTIVE: Pt reports that her back is painful. Pt prefers seated exercises, eventhough pain is unchanged. Pt reports that she was bent over for a little bit this morning to trim her toenails and that may have aggrevated her back. Pain: Pain Pain Level: 9 Pain Location: Low Back/Lumbar Spine- Midline Post Treatment Pain Post Treatment Pain Level: No Change Post Treatment Pain Location: Low Back/Lumbar Spine- Midline OBJECTIVE MEASURES WITH LEVEL OF FUNCTION: TREATMENT: Therapeutic Exercise: 1: Seated TA activation 2x10 with 2-3 second holds 2: Seated TA activation with alt LE marching 2x5 B 3: Seated TA activation with alt UE 2x5 B 4: Seated PiTB perturbations 3x15 R,L, forward 5: Seated push into 55 cm physioball with TA activation 2x10 Skilled Intervention: Patient was educated in proper exercise technique and purpose for exercises. Skilled judgment was used in selection of appropriate interventions. Correct performance of therapeutic exercises was facilitated with verbal and visual cuing. Billing Therapeutic Exercise Treatment Minutes: 41 Skilled Treatment Time Minutes (timed and untimed codes): 41 Total Session Time (minutes): 41 Session Start Time : 1103 Session Stop Time : 1144 ZULEIMA Nguyen PT documented [facility] History of Present illness Narrative* Whit Sheppard PTA - 08/09/2024 11:42 AM EST Program_ID:[id number] Access Code: [email or web address] URL: [email or web address] Date: 08-09-2024 Prepared By: Александр Dugan Program Notes Exercises - Supine Lower Trunk Rotation - 2 x daily - 7 x weekly - 2 sets - 10 reps - Supine Pelvic Tilt - 2 x daily - 7 x weekly - 2 sets - 10 reps - Supine Transversus Abdominis Bracing - Hands on Stomach - 2 x daily - 7 x weekly - 2 sets - 10 reps - Seated Transversus Abdominis Bracing - 2 x daily - 7 x weekly - 2 sets - 10 reps * Александр Dugan, PT - 08/09/2024 11:11 AM EST Episode Visit Count: 3 Therapist That Will Accept/Oversee The Plan Of Care: Александр Dugan Start of Care Date: 06/11/24 Onset Date: 03/12/24 Patient Identified by Name and Date of : Yes REHABILITATION AND SPORTS THERAPY PHYSICAL THERAPY TREATMENT NOTE ASSESSMENT: Kellie Kang tolerated the session with fatigue and expected muscle soreness. She demonstrated improvements in tolerance to core strengthening in sitting. The patient will continue tobenefit from ongoing skilled physical therapy to progress toward set goals. PLAN FOR NEXT VISIT: Continue with neutral spine strenghtening as tolerated. SUBJECTIVE: Pt reports that she is sore today, but she is always sore. Pt has been getting on the treadmill, 10-15 minutes at a time. Pain: Pain Pain Level: 8 Pain Location: Low Back/Lumbar Spine- Midline Post Treatment Pain Post Treatment Pain Level: No Change Post Treatment Pain Location: Low Back/Lumbar Spine- Midline OBJECTIVE MEASURES WITH LEVEL OF FUNCTION: TREATMENT: Therapeutic Exercise: 1: *Seated TA activation 2x10 with 2-3 second holds 2: Seated TA activation with alt LE marching 2x5 B 3: Seated TA activation with alt UE 2x5 B 4: Seated PiTB perturbations 3x15 R,L, forward Skilled Intervention: Patient was educated in proper exercise technique and purpose for exercises. Reviewed and educated patient on additions/changes for home exercise program as above (*). Skilled judgment was used in selection of appropriate interventions. Provided written instruction for home exercise program to facilitate proper performance and compliance. Correct performance of therapeutic exercises was facilitated with verbal and visual cuing. Billing Therapeutic Exercise Treatment Minutes: 43 Skilled Treatment Time Minutes (timed and untimed codes): 43 Total Session Time (minutes): 43 Session Start Time : 1101 Session Stop Time : 1144 ZULEIMA Nguyen PT, DPT. documented in this encounterSy[facility]25 NoteHNO ID: [id number] Author: АЛЕКСАНДР DUGAN PT Service: ? Author Type: Physical Therapist Type: Progress Notes Filed: 08/09/2024 13:54 Note Text: Episode Visit Count: 3 Therapist That Will Accept/Oversee The Plan Of Care: Александр Dugan Start of Care Date: 06/11/24 Onset Date: 03/12/24 Patient Identified by Name and Date of : Yes REHABILITATION AND SPORTS THERAPY PHYSICAL THERAPY TREATMENT NOTE ASSESSMENT: Kellie Kang tolerated the session with fatigue and expected muscle soreness. She demonstrated improvements in tolerance to core strengthening in sitting. The patient will continue to benefit from ongoing skilled physical therapy to progress toward set goals. PLAN FOR NEXT VISIT: Continue with neutral spine strenghtening as tolerated. SUBJECTIVE: Pt reports that she is sore today, but she is always sore. Pt has been getting on the treadmill, 10-15 minutes at a time. Pain: Pain Pain Level: 8 Pain Location: Low Back/Lumbar Spine- Midline Post Treatment Pain Post Treatment Pain Level: No Change Post Treatment Pain Location: Low Back/Lumbar Spine- Midline OBJECTIVE MEASURES WITH LEVEL OF FUNCTION: TREATMENT: Therapeutic Exercise: 1: *Seated TA activation 2x10 with 2-3 second holds 2: Seated TA activation with alt LE marching 2x5 B 3: Seated TA activation with alt UE 2x5 B 4: Seated PiTB perturbations 3x15 R,L, forward Skilled Intervention: Patient was educated in proper exercise technique and purpose for exercises. Reviewed and educated patient on additions/changes for home exercise program as above (*). Skilled judgment was used in selection of appropriate interventions. Provided written instruction for home exercise program to facilitate proper performance and compliance. Correct performance of therapeutic exercises was facilitated with verbal and visual cuing. Billing Therapeutic Exercise Treatment Minutes: 43 Skilled Treatment Time Minutes (timed and untimed codes): 43 Total Session Time (minutes): 43 Session Start Time : 1101 Session Stop Time : 1144 ZULEIMA Nguyen, PT, DPT.[facility]01-31-2025 NoteHNO ID: [id number] Author: XIAO PEREZ APRN.[facility] Service: ? Author Type: Nurse Practitioner Type: Progress Notes Filed: 08/02/2024 10:25 Note Text: Chief Complaint Patient presents with: Established Patient HPI: Kellie Kang is a 59 year old female who presents here today for follow up lung cancer. Per Dr. East's previous note: H/o former smoker who presented for evaluation of right neck mass. Right lower neck mass for about a month. Saw Dr. Lara who ordered CT neck. She had a CT of the neck with contrast enhancement on 05/12/2023. This study revealed a nodule in the thyroid, right-sided gland measuring 9 x 6 mm. There is heterogeneity versus second nodule in the left thyroid. Measurements were not rendered. There was right supraclavicular adenopathy, level 4B measuring 4.1 x 2.0 cm. There is mass effect and moderate narrowing of the right jugular vein and an adjacent enlarged lymph node measuring 1.3 x 1.6 cm. There is brachial enlarged lymph nodes measuring 1.3 x 1.3. Note was made of anterior cervical fusion hardware and previous discectomy changes at L5-6. Emphysematous changes were noted in the lung apices. Patient underwent FNA of the right-sided cervical adenopathy on 05/19/2023. Pathology: Positive for malignant cells. 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 Per initial consultation: had Covid. She got symptoms 05/24. Tested positive that day. Sore throat, headache, fever and malaise. Symptoms resolved except fatigue. No change in chronic cough from COPD. Rarely productive. Wheezes ( calls her wheezy). Mild JO. Hasn't had to stop any activity. 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 No issues with stairs, etc. Normal appetite. Neck pain. Pain in right chest (3-4 years; stress test okay). Used to come and go. Now seems to radiate down from the neck mass. COPE in right occipital area. Comes and go for about month. Quit smoking at time of diagnosis. Smoked a ppd for about 45 years. No alcohol. . Three older children. Previous therapy: 1) Concurrent chemotherapy and radiation with cisplatin etoposide. Completed chemotherapy 08/31/2023. I changed family doctors. He wants me to take a bunch of vitamins and supplements. I need you to fill out this form for my 's work. Pt. requesting refill of pain meds and something for weight loss. Pt. attended two PT appts for back pain. Appetite:Good. Wt. up 11# since 2023 Energy level:Sucks. Pt. walking at least 15 minutes most days. Denies fevers or recent illness. 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 Past medical history, appointments, medications, allergies reviewed. No changes. EXAM: BP 110/62 Pulse 107 Temp 36.7 ?C (98 ?F) (Temporal) Wt 84.8 kg (186 lb 15.2 oz) SpO2 95% BMI 32.96 kg/m? APPEARANCE Well appearing, alert, in no acute distress, well-hydrated, well nourished. HEART RRR with normal S1 and S2, no murmurs LUNG clear to auscultation LYMPH NODES No cervical lymphadenopathy, No supraclavicular lymphadenopathy, and No axillary lymphadenopathy. ABDOMEN bowel sounds normoactive, soft, non-tender EXTREMITIES No edema NEURO Awake, alert and oriented x 3, Normal gait, and No involuntary motions. SKIN Skin color, texture, turgor normal, no suspicious rashes or lesions LABS: Latest Ref Rng 01/17/2024 04/25/2024 07/26/2024 WBC 3.70 - 11.00 k/uL 3.70 3.92 4.77 RBC 3.90 - 5.20 m/uL 3.40 (L) 3.76 (L) 3.67 (L) Hemoglobin 11.5 - 15.5 g/dL 10.2 (L) 11.5 11.1 (L) Hematocrit 36.0 - 46.0 % 30.8 (L) 34.8 (L) 33.4 (L) MCV 80.0 - 100.0 fL 90.6 92.6 91.0 MCH 26.0 - 34.0 pg 30.0 30.6 30.2 MCHC 30.5 - 36.0 g/dL 33.1 33.0 33.2 RDW-CV 11.5 - 15.0 % 11.9 12.3 13.0 Platelet Count 150 - 400 k/uL 226 244 232 MPV 9.0 - 12.7 fL 9.5 9.7 8.9 (L) Neut% % 65.7 61.7 68.6 Abs Neut (ANC) 1.45 - 7.50 k/uL 2.43 2.42 3.27 Lymph% % 22.2 23.2 18.7 Abs Lymph 1.00 - 4.00 k/uL 0.82 (L) 0.91 (L) 0.89 (L) Mcnairy% % 8.6 9.2 8.2 Abs Mcnairy <0.87 k/uL 0.32 0.36 0.39 Eosin% % 2.7 4.6 3.1 Abs Eosin <0.46 k/uL 0.10 0.18 0.15 Baso% % 0.8 1.0 1.0 Abs Baso <0.11 k/uL 0.03 0.04 0.05 Immature Gran % % 0.0 0.3 0.4 IMMATURE GRANS (ABS) <0.10 k/uL <0.03 <0.03 <0.03 NRBC /100 WBC 0.0 0.0 0.0 Absolute nRBC <0.01 k/uL <0.01 <0.01 <0.01 DTYPE Auto Auto Auto Latest Ref Rng 01/17/2024 04/25/2024 07/26/2024 Protein, Total 6.3 - 8.0 g/dL 7.2 6.8 Albumin 3.9 - 4.9 g/dL 4.3 4.3 Calcium 8.5 - 10.2 mg/dL 9.3 10.1 9.7 Bilirubin, Total 0.2 - 1.3 mg/dL 0.2 0.3 Alkaline Phosphatase 34 - 123 U/L 65 72 AST 13 - 35 U/L 17 20 ALT 7 - 38 U/L 14 19 Glucose 74 - 99 m (more content not included)...[facility] 08-02-2024 History of Present illness Narrative* Xiao PerezLYNETTE.[facility] - 08/02/2024 9:51 AM EST Chief Complaint Patient presents with: Established Patient HPI: Kellie Kang is a 59 year old female who presents here today for follow up lung cancer. Per Dr. East's previous note: H/o former smoker who presented for evaluation of right neck mass. Right lower neck mass for about a month. Saw Dr. Lara who ordered CT neck. She had a CT of the neck with contrast enhancement on 05/12/2023. This study revealed a nodule in the thyroid, right-sided gland measuring 9 x 6 mm. There is heterogeneity versus second nodule in theleft thyroid. Measurements were not rendered. There was right supraclavicular adenopathy, level 4B measuring 4.1 x 2.0 cm. There is mass effect and moderate narrowing of the right jugular vein and anadjacent enlarged lymph node measuring 1.3 x 1.6 cm. There is brachial enlarged lymph nodes measuring 1.3 x 1.3. Note was made of anterior cervical fusion hardware and previous discectomy changes at L5-6. Emphysematous changes were noted in the lung apices. Patient underwent FNA of the right-sided cervical adenopathy on 05/19/2023. Pathology: Positive for malignant cells. 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 Per initial consultation: had Covid. She got symptoms 05/24. Tested positive that day. Sore throat, headache, fever and malaise. Symptoms resolved except fatigue. No change in chronic cough from COPD. Rarely productive. Wheezes ( calls her wheezy). Mild JO. Hasn't had to stop any activity. 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 No issues with stairs, etc. Normal appetite. Neck pain. Pain in right chest (3-4 years; stress test okay). Used to come and go. Now seems to radiate down from the neck mass. COPE in right occipital area. Comes and go for about month. Quit smoking at time of diagnosis. Smoked a ppd for about 45 years. No alcohol. . Three older children. Previous therapy: 1) Concurrent chemotherapy and radiation with cisplatin etoposide. Completed chemotherapy 08/31/2023. I changed family doctors. He wants me to take a bunch of vitamins and supplements. I need you to fill out this form for my 's work. Pt. requesting refill of pain meds and something for weight loss. Pt. attended two PT appts for back pain. Appetite:Good. Wt. up 11# since 2023 Energy level:Sucks. Pt. walking at least 15 minutes most days. Denies fevers or recent illness. 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 Past medical history, appointments, medications, allergies reviewed. No changes. EXAM: BP 110/62 Pulse 107 Temp 36.7 C (98 F) (Temporal) Wt 84.8 kg (186 lb 15.2 oz) SpO2 95% BMI 32.96 kg/m APPEARANCE Well appearing, alert, in no acute distress, well-hydrated, well nourished. HEART RRR with normal S1 and S2, no murmurs LUNG clear to auscultation LYMPH NODES No cervical lymphadenopathy, No supraclavicular lymphadenopathy, and No axillary lymphadenopathy. ABDOMEN bowel sounds normoactive, soft, non-tender EXTREMITIES No edema NEURO Awake, alert and oriented x 3, Normal gait, and No involuntary motions. SKIN Skin color, texture, turgor normal, no suspicious rashes or lesions LABS: Latest Ref Rng 01/17/2024 04/25/2024 07/26/2024 WBC 3.70 - 11.00 k/uL 3.70 3.92 4.77 RBC 3.90 - 5.20 m/uL 3.40 (L) 3.76 (L) 3.67 (L) Hemoglobin 11.5 - 15.5 g/dL 10.2 (L) 11.5 11.1 (L) Hematocrit 36.0 - 46.0 % 30.8 (L) 34.8 (L) 33.4 (L) MCV 80.0 - 100.0 fL 90.6 92.6 91.0 MCH 26.0 - 34.0 pg 30.0 30.6 30.2 MCHC 30.5 - 36.0 g/dL 33.1 33.0 33.2 RDW-CV 11.5 - 15.0 % 11.9 12.3 13.0 Platelet Count 150 - 400 k/uL 226 244 232 MPV 9.0 - 12.7 fL 9.5 9.7 8.9 (L) Neut% % 65.7 61.7 68.6 Abs Neut (ANC) 1.45 - 7.50 k/uL 2.43 2.42 3.27 Lymph% % 22.2 23.2 18.7 Abs Lymph 1.00 - 4.00 k/uL 0.82 (L) 0.91 (L) 0.89 (L) Mcnairy% % 8.6 9.2 8.2 Abs Mcnairy <0.87 k/uL 0.32 0.36 0.39 Eosin% % 2.7 4.6 3.1 Abs Eosin <0.46 k/uL 0.10 0.18 0.15 Baso% % 0.8 1.0 1.0 Abs Baso <0.11 k/uL 0.03 0.04 0.05 Immature Gran % % 0.0 0.3 0.4 IMMATURE GRANS (ABS) <0.10 k/uL <0.03 <0.03 <0.03 NRBC /100 WBC 0.0 0.0 0.0 Absolute nRBC <0.01 k/uL <0.01 <0.01 <0.01 DTYPE Auto Auto Auto Latest Ref Rng 01/17/2024 04/25/2024 07/26/2024 Protein, Total 6.3 - 8.0 g/dL 7.2 6.8 Albumin 3.9 - 4.9 g/dL 4.3 4.3 Calcium 8.5 - 10.2 mg/dL 9.3 10.1 9.7 Bilirubin, Total 0.2 - 1.3 mg/dL 0.2 0.3 Alkaline Phosphatase 34 - 123 U/L 65 72 AST 13 - 35 U/L 17 20 ALT 7 - 38 U/L 14 19 Glucose 74 - 99 mg/dL 105 (H) 101 (H) 101 (H) BUN 7 - 21 mg/dL 21 21 17 Creatinine 0.58 - 0.96 mg/dL 1.23 (H) 1.20 (H) 1.10 (H) Sodium 136 - 144 mmol/L 141 139 140 Potassium 3.7 - 5.1 mmol/L 3.9 4.4 4.3 Chloride 98 - 107 mmol/L 110 (H) 107 108 (H) CO2 22 - 30 mmol/L 23 22 25 Anion Gap 8 - 15 mmol/L 8 10 7 (L) eGFR >=60 mL/min/1.73m 51 (L) 52 (L) 58 (L) RADIOLOGY: CT chest 07/26/24: IMPRESSION: No CT evidence of acute abnormality, recurrence or metastasis in the thorax. CT neck 07/26/24: IMPRESSION: No soft tissue mass or lymphadenopathy in the neck. CT abd/pelvis 07/26/24: IMPRESSION: No acute abnormalities or metastasis in the abdomen and pelvis. ASSESSMENT/PLAN: 1. Encounter for follow-up surveillance of lung cancer - ICD9: V67.9, V10.11, ICD10: Z08, Z85.[address] East's previous note: Assessment: -The patient is a 58-year-old female former, 21-aapy-zorv smoker with diagnosis of COPD who underwent evaluation for low right-sided cervical/supraclavicular adenopathy and was found to have small cell carcinoma. Limited stage. -Tolerated chemotherapy overall fairly well but was complicated by LUCIANA, dehydration, nausea (responded best to olanzapine). Dexamethasone made her very tremulous. -Posttherapy CTs demonstrated IA. -Completed PCI. -Reviewed CT scans in detail. Further response in cervical/supraclavicular nodes. JENAE. -CT Chest pending, but per my review stable. Plan: -Labs and repeat CTs in 3-4 months. - No concerning findings on exam. - Reviewed CT's with pt. JENAE. - Advised pt. that she will need to contact her PCP to discuss the above requests. - Continue follow up with PCP for routine care including chronic back pain. - CT's in 3-4 months. - Follow up with Dr. East after above with CBC/CMP. - Pt. aware to call office with any questions/concerns. The patient indicates understanding of these issues and agrees with the plan. All documentation from previous visit of 05/02/24-Dr. East was copied and pasted, documentation has been reviewed and edited as necessary for today's visit. Xiao Perez APRN.[facility] documented in this encounterSycamore [facility] Center01-24-2025 NoteHNO ID: [id number] Author: YASMIN HANKINS RT(R) Service: ? Author Type: Lot Porter Type: Progress Notes Filed: 07/26/2024 12:20 Note Text: Radiology Service Progress Note DATE OF SERVICE: July 26, 2024 TIME: 12:20 PM PATIENT IDENTITY VERIFICATION COMPLETED USING TWO (2) STANDARD IDENTIFIERS: Name and Date of confirmed by patient verbally. FALL SCREENING: Has the patient had 2 falls in the last year or 1 fall with injury or currently using an Ambulatory Assistive Device (Walker, Cane, Wheelchair, Crutches, etc.)? No PATIENT GENDER DATA: Assigned female at . status: : No status: NO. PATIENT RELEVANT IMPLANT DATA REVIEWED: Yes PATIENT PRESENTS WITH AN IMPLANTABLE OR ATTACHED PRINCIPAL ACCOUNT CLERK: No ALLERGIES: Reviewed and unchanged CONTRAST ALLERGY: NO. EXAM: CT -CONTRAST INDUCED NEPHROPATHY RISK FACTORS: Not applicable CREATININE: Creatinine Date Value Ref Range Status 07/26/2024 1.10 (H) 0.58 - 0.96 mg/dL Final 04/25/2024 1.20 (H) 0.58 - 0.96 mg/dL Final 01/17/2024 1.23 (H) 0.58 - 0.96 mg/dL Final Estimated Glomerular Filtration Rate Date Value Ref Range Status 07/26/2024 58 (L) >=60 mL/min/1.73m? Final Comment: Estimated Glomerular Filtration Rate (eGFR) is calculated using the 2020 CKD-EPI creatinine equation. This equation utilizes serum creatinine, sex, and age as parameters. The creatinine assay has traceable calibration to isotope dilution-mass spectrometry. Refer to KDIGO guidelines for clinical interpretation. In patients with unstable renal function, e.g. those with acute kidney injury, the eGFR may not accurately reflect actual GFR. P.O.C.T. RESULTS: POC done: Yes, See Lab Tab July 26, 2024 TREATMENT: N/A PERIPHERAL IV DATA: Ambulatory: A peripheral IV was started in the Right hand with a Angio cath: 22 gauge. RADIOLOGY DEPARTMENT: CT; Exam(s) Completed: Chest Abdomen Pelvis and Neck SIGNATURE: RT Tomeka(R) PATIENT NAME: Kellie Kang DATE: July 26, 2024 TIME: 12:20 [facility]12-30-2024 NoteHNO ID: [id number] Author: АЛЕКСАНДР DUGAN, PT Service: ? Author Type: Physical Therapist Type: Progress Notes Filed: 07/01/2024 11:21 Note Text: Episode Visit Count: 2 Therapist That Will Accept/Oversee The Plan Of Care: Александр Dugan Start of Care Date: 06/11/24 Onset Date: 03/12/24 Patient Identified by Name and Date of : Yes REHABILITATION AND SPORTS THERAPY PHYSICAL THERAPY TREATMENT NOTE ASSESSMENT: Kellie Kang tolerated the session with fatigue and expected muscle soreness. She demonstrated improvements in back irritation with TA activation via shoulder extension vs. PPT. The patient will continue to benefit from ongoing skilled physical therapy to progress toward set goals. PLAN FOR NEXT VISIT: Continue with neutral spine strenghtening as tolerated. SUBJECTIVE: Pt reports that she is sore today. Pt states that her exercises are going well. Increased soreness after doing exercises. Pain: Pain Pain Level: 8 Pain Location: Low Back/Lumbar Spine- Midline Post Treatment Pain Post Treatment Pain Level: No Change Post Treatment Pain Location: Low Back/Lumbar Spine- Midline OBJECTIVE MEASURES WITH LEVEL OF FUNCTION: Good form with TA activation TREATMENT: Therapeutic Exercise: 1: LTR: x10 each, 3-5sec hold. 2: Trailed PPT, really sore on the back today 3: TA activation via shoulder extension 2x10 with 1-2 second holds 4: TA activation via shoulder extension with toe taps x5 BLE (discontinued due to burning sensation in low back) Skilled Intervention: Patient was educated in proper exercise technique and purpose for exercises. Skilled judgment was used in selection of appropriate interventions. Correct performance of therapeutic exercises was facilitated with verbal and visual cuing. Manual Therapy: 1: STM over R lateral and posterior hip x 5 minutes (pt c/o tightness with LTR) Skilled Intervention: Manual skills to improve joint mobility, ROM, and decrease pain. Utilized anatomy knowledge of the therapist, and assessment of patient's response to intervention. Self-Half-Way Management: 1: *Education on elevating LE with standing to do dishes. Skilled Intervention: Skilled judgment in the selection of proper modification for activity of daily living/home management based on clinical presentation, deficits, and needs. Billing Therapeutic Exercise Treatment Minutes: 28 Manual TherapyTreatment Minutes: 5 Self-Care/Home Management Treatment Minutes: 8 Skilled Treatment Time Minutes (timed and untimed codes): 41 Total Session Time (minutes): 41 Session Start Time : 1015 Session Stop Time : 1056 ZULEIMA Nguyen, PT, DPT.[facility]12-30-2024 History of Present illness Narrative* Александр Dugan, PT - 07/01/2024 10:16 AM EST Episode Visit Count: 2 Therapist That Will Accept/Oversee The Plan Of Care: Александр Dugan Start of Care Date: 06/11/24 Onset Date: 03/12/24 Patient Identified by Name and Date of : Yes REHABILITATION AND SPORTS THERAPY PHYSICAL THERAPY TREATMENT NOTE ASSESSMENT: Kellie Kang tolerated the session with fatigue and expected muscle soreness. She demonstrated improvements in back irritation with TA activation via shoulder extension vs. PPT. The patient will continue to benefit from ongoing skilled physical therapy to progress toward set goals. PLAN FOR NEXT VISIT: Continue with neutral spine strenghtening as tolerated. SUBJECTIVE: Pt reports that she is sore today. Pt states that her exercises are going well. Increased soreness after doing exercises. Pain: Pain Pain Level: 8 Pain Location: Low Back/Lumbar Spine- Midline Post Treatment Pain Post Treatment Pain Level: No Change Post Treatment Pain Location: Low Back/Lumbar Spine- Midline OBJECTIVE MEASURES WITH LEVEL OF FUNCTION: Good form with TA activation TREATMENT: Therapeutic Exercise: 1: LTR: x10 each, 3-5sec hold. 2: Trailed PPT, really sore on the back today 3: TA activation via shoulder extension 2x10 with 1-2 second holds 4: TA activation via shoulder extension with toe taps x5 BLE (discontinued due to burning sensationin low back) Skilled Intervention: Patient was educated in proper exercise technique and purpose for exercises. Skilled judgment was used in selection of appropriate interventions. Correct performance of therapeutic exercises was facilitated with verbal and visual cuing. Manual Therapy: 1: STM over R lateral and posterior hip x 5 minutes (pt c/o tightness with LTR) Skilled Intervention: Manual skills to improve joint mobility, ROM, and decrease pain. Utilized anatomy knowledge of the therapist, and assessment of patient's response to intervention. Self-Half-Way Management: 1: *Education on elevating LE with standing to do dishes. Skilled Intervention: Skilled judgment in the selection of proper modification for activity of daily living/home management based on clinical presentation, deficits, and needs. Billing Therapeutic Exercise Treatment Minutes: 28 Manual TherapyTreatment Minutes: 5 Self-Care/Home Management Treatment Minutes: 8 Skilled Treatment Time Minutes (timed and untimed codes): 41 Total Session Time (minutes): 41 Session Start Time : 1015 Session Stop Time : 1056 ZULEIMA Nguyen PT, DPT. documented in this encounterSy[facility]12[facility]24 History of Present illness Narrative* Александр Dugan PT - 06/11/2024 9:11 AM EST Program_ID:[id number] Access Code: [email or web address] URL: [email or web address] Date: 06-11-2024 Prepared By: Александр Dugan Program Notes Exercises - Supine Lower Trunk Rotation - 2 x daily - 7 x weekly - 2 sets - 10 reps - Supine Pelvic Tilt - 2 x daily - 7 x weekly - 2 sets - 10 reps - Supine Transversus Abdominis Bracing - Hands on Stomach - 2 x daily - 7 x weekly - 2 sets - 10 reps * Александр Dugan PT - 06/11/2024 8:32 AM EST Images from the original note were not included. Episode Visit Count: 1 Therapist That Will Accept/Oversee The Plan Of Care: Александр Tomas Start of Care Date: 06/11/24 Onset Date: 03/12/24 Patient Identified by Name and Date of : Yes REHABILITATION AND SPORTS THERAPY PHYSICAL THERAPY EVALUATION PLAN OF CARE: Assessment: Kellie Kang presents with chief complaint of midline low back pain with intermittent right lower extremity pain that interferes with standing, walking, lifting . The patient presentswith impairments in ADL's, flexibility, independence in exercise, overall function, range of motion, soft tissue healing, strength, symptom management, and tissue tenderness. PROMIS (Patient-ReportedOutcomes Measurement Information System) scores were reviewed and identified as a rehabilitation concern. Prognosis for therapy is Fair due to: clinical presentation, multiple co- morbidities, limited tolerance to activity .The patient will benefit from skilled therapy services to meet the goals established for this plan of care as noted below. Classification Pain Mechanism Classification: Neuropathic Low Back Pain Classification: Symptom Modulation Goals for Episode of Care: established 06/11/24 Patient reported outcome of physical function will increase T-score by a minimum 5 points. [place] in home exercise program. Patient will decrease pain rating by 2 points to meet minimal clinical important difference for numeric pain rating scale. Increase ROM of lumbar spine to WFL for all motions. Increase strength of LB stabilizers and postural muscles to WFL for increased position tolerance. Perform pain-free functional activity of sitting, sleeping, laying supine, walking & standing. Sleep through night without pain/symptoms. Patient Goals: Feel better, less pain, move better. Time Frame for Goals and Treatment : 07/23/24 Planned Interventions, Frequency, and Duration: Current Frequency: 1x/week Duration: 4 weeks Total Number of Visits Planned: 4 Planned Treatment Interventions: Therapeutic exercise (38826), Neuromuscular re- education (41447), Manual therapy (06669), Therapeutic activities (97918), Self- halfway management (18904), Gait Training (45809), Body Mechanics Training, Patient/Family/Caregiver Education PLAN FOR NEXT VISIT: Review, correct and progress HEP to tolerance progressing to tolerance. Progress NS Strength. Patient demonstrates good understanding of plan of care and treatment. The above goals and plan of care were discussed and agreed upon by patient/family. SUBJECTIVE: Midline Lumbar pain came on without NICHOLAS 3 months ago; states she can typically self-manage symptoms, however this pain is lasting. 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 States pain can radiate down the R Leg with this. Walking and returning from bend also bother. States LBP is 90% of her pain with RLE 10%. When pain goes down RLE, wraps anterior and she describes as ache on proximalant thigh. Biofreeze patch helps. Lying on sides feel better for her. No history of injections, steriods or surgery for the low back. Denies LB Red Flag Sxs. Patient Goals: Feel better, less pain, move better. 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 (Tries to get on it 3x a day, tries for 7-10 minutes.) Hobbies / Interests: Light Chores. Intake Information: Prescription present Red Flags Vertebral Fracture Red Flags: Female Vertebral Fracture Clinical Reasoning: Proceed with caution due to the above (1- 2) risk factors Abdominal Aortic Aneurysm Clinical Reasoning: No identified risk factors. Cancer Red Flags: History of Cancer, Age >50 or <20 Cancer Clinical Reasoning: Proceed with caution Infection Clinical Reasoning: No identified risk factors. Cauda Equina Syndrome Clinical Reasoning: No identified risk factors. Red Flags - Cervical Cancer Red Flags: History of Cancer, Age >50 or <20 Cancer Clinical Reasoning: Proceed with caution Infection Clinical Reasoning: No identified risk factors. Pain: Pain Pain Level: (8.5/10.) Pain Location: Low Back/Lumbar Spine- Midline Description: Sore PROMIS Scales 06/11/2024 Higher is Better Phys Func - Score 38 (moderate dysfunction) Phys Func - Percentile 12 Self-Eff Symptom - Score 41 (Average) Self-Eff Symptom - Percentile 18 T-scores: mean of general population = 50. 5 points is clinically meaningfully difference Percentiles provide an indication of how the patient's score ranks in relation to the general population. Higher percentile rankings indicate better function/quality of life. 50th percentile is the average of the general population and indicates half of respondents had a worse score. OBJECTIVE MEASURES WITH LEVEL OF FUNCTION: Spine Observations R Lumbar Spine Palpation Tenderness: Spinous process, PSIS (posterior superior iliac spine) L Lumbar Spine Palpation Tenderness: Spinous process, PSIS (posterior superior iliac spine) Sensation - Lumbar Sensation: Grossly Intact Lumbar Spine AROM Lumbar Flexion: Normal (An inch above toes.) Lumbar Extension: Moderate limitation, Increased pain, Pain during movement, Peripheralizing Lumbar R Side-Bend: Minimal limitation, Increased pain, Peripheralizing Lumbar L Side-Bend: Normal Lumbar R Rotation: Minimal limitation Lumbar L Rotation: Minimal limitation Spine Joint Mobility Joint Mobility Comment: Pain with passive ER & IR Hip, increased on R. LE Strength Trunk Strength: Lower Abdominals: 3/5 R LE Strength: Grossly 4+/5 without myotomal differences. L LE Strength: Grossly 4+/5 without myotomal differences. Special Tests - Hip and Spine Hip and Spine Special Tests: SLR Test, Slump Test, JACQUELYN Test SLR Test: Right Positive, Left Negative (LBP at 80 deg.) Slump Test: Right Negative, Left Negative JACQUELYN Test: Right Positive Special Test Comments: Supine 90/90 LEs Lowering: Positive for pain and decreased stability. Gait Gait Observation: Non-remarkable Education: Education Learning Preferences: Demonstration, Explanation Barriers: None Learning/educational needs: Health promotion, Home exercise program, Plan of Care Education Provided: Yes, see treatment interventions for education provided Education Provided To: Patient Education Mode/Type: Demonstration, Explanation/Discussion, Literature/Printed Materials Response to Education/Teach Back: States/Identifies TREATMENT: PT Treatment Interventions: Therapeutic Exercise, Self-Half-Way Management Evaluation Therapeutic Exercise: 1: *LTR: x10 each, 3-5sec hold. (*Discussed not pushing into pain.) 2: *HL PPT: x10, 2-3sec hold. (*Discussed not pushing into pain.) 3: *HL TrA Bracing: x10, 5-sec hold. (Tactile cue for form, discussed not pushing into pain and breathing during exercise.) 4: Discussed purpose of the HEP and the HEP handout was provided to the pt. HEP discussed in detail with how to safely and properly perform each therapeutic exercise. 5: Discussed muscle burn/soreness vs. increased concordant pain & increasing lower leg sxs. 6: Trialed SKC, unable to complete d/t inc pain. Skilled Intervention: Patient was educated in proper exercise technique and purpose for exercises. Reviewed and educated patient on additions/changes for home exercise program as above (*). Skilled judgment was used in selection of appropriate interventions. Provided written instruction for home exercise program to facilitate proper performance and compliance. Correct performance of therapeutic exercises was facilitated with tactile cuing. Self-Half-Way Management: 1: *Education about lumbar anatomy related to diagnosis; discussed lumbar DDD and radicular pain based on her symptoms/subjective. Discussed avoiding exercises or activities that cause INC pain and/or peripheralize sxs. 2: *discussed log roll technique for getting out of bed. Discussed trialing prolonged hooklying position at home for relief. 3: *reviewed imaging and discussed rehab implications. Skilled Intervention: Skilled judgment in the selection of proper modification for activity of daily living/home management based on clinical presentation, deficits, and needs. Billing * Evaluation Low Complexity: 1 Unit Therapeutic Exercise Treatment Minutes: 15 Self-Care/Home Management Treatment Minutes: 10 Skilled Treatment Time Minutes (timed and untimed codes): 47 Total Session Time (minutes): 47 Session Start Time : 0830 Session Stop Time : 09 Александр Dugan PT, DPT. documented in this encounterSy[facility]12-10-2024 NoteHNO ID: [id number] Author: АЛЕКСАНДР DUGAN PT Service: ? Author Type: Physical Therapist Type: Progress Notes Filed: 06/11/2024 10:28 Note Text: Episode Visit Count: 1 Therapist That Will Accept/Oversee The Plan Of Care: Александр Dugan Start of Care Date: 06/11/24 Onset Date: 03/12/24 Patient Identified by Name and Date of : Yes REHABILITATION AND SPORTS THERAPY PHYSICAL THERAPY EVALUATION PLAN OF CARE: Assessment: Kellie Kang presents with chief complaint of midline low back pain with intermittent right lower extremity pain that interferes with standing, walking, lifting . The patient presents with impairments in ADL's, flexibility, independence in exercise, overall function, range of motion, soft tissue healing, strength, symptom management, and tissue tenderness. PROMIS? (Patient-Reported Outcomes Measurement Information System) scores were reviewed and identified as a rehabilitation concern. Prognosis for therapy is Fair due to: clinical presentation, multiple co- morbidities, limited tolerance to activity .The patient will benefit from skilled therapy services to meet the goals established for this plan of care as noted below. Classification Pain Mechanism Classification: Neuropathic Low Back Pain Classification: Symptom Modulation Goals for Episode of Care: established 06/11/24 Patient reported outcome of physical function will increase T-score by a minimum 5 points. [place] in home exercise program. Patient will decrease pain rating by 2 points to meet minimal clinical important difference for numeric pain rating scale. Increase ROM of lumbar spine to WFL for all motions. Increase strength of LB stabilizers and postural muscles to WFL for increased position tolerance. Perform pain-free functional activity of sitting, sleeping, laying supine, walking AND standing. Sleep through night without pain/symptoms. Patient Goals: Feel better, less pain, move better. Time Frame for Goals and Treatment : 07/23/24 Planned Interventions, Frequency, and Duration: Current Frequency: 1x/week Duration: 4 weeks Total Number of Visits Planned: 4 Planned Treatment Interventions: Therapeutic exercise (28398), Neuromuscular re-education (05601), Manual therapy (30646), Therapeutic activities (54539), Self-halfway management (40194), Gait Training (39222), Body Mechanics Training, Patient/Family/Caregiver Education PLAN FOR NEXT VISIT: Review, correct and progress HEP to tolerance progressing to tolerance. Progress NS Strength. Patient demonstrates good understanding of plan of care and treatment. The above goals and plan of care were discussed and agreed upon by patient/family. SUBJECTIVE: Midline Lumbar pain came on without NICHOLAS 3 months ago; states she can typically self-manage symptoms, however this pain is lasting. 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 States pain can radiate down the R Leg with this. Walking and returning from bend also bother. States LBP is 90% of her pain with RLE 10%. When pain goes down RLE, wraps anterior and she describes as ache on proximal ant thigh. Biofreeze patch helps. Lying on sides feel better for her. No history of injections, steriods or surgery for the low back. Denies LB Red Flag Sxs. Patient Goals: Feel better, less pain, move better. 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 (Tries to get on it 3x a day, tries for 7-10 minutes.) Hobbies / Interests: Light Chores. Intake Information: Prescription present Red Flags Vertebral Fracture Red Flags: Female Vertebral Fracture Clinical Reasoning: Proceed with caution due to the above (1-2) risk factors Abdominal Aortic Aneurysm Clinical Reasoning: No identified risk factors. Cancer Red Flags: History of Cancer, Age >50 or <20 Cancer Clinical Reasoning: Proceed with caution Infection Clinical Reasoning: No identified risk factors. Cauda Equina Syndrome Clinical Reasoning: No identified risk factors. Red Flags - Cervical Cancer Red Flags: History of Cancer, Age >50 or <20 Cancer Clinical Reasoning: Proceed with caution Infection Clinical Reasoning: No identified risk factors. Pain: Pain Pain Level: (8.5/10.) Pain Location: Low Back/Lumbar Spine- Midline Description: Sore PROMIS Scales 06/11/2024 Higher is Better Phys Func - Score 38 (moderate dysfunction) Phys Func - Percentile 12 Self-Eff Symptom - Score 41 (Average) Self-Eff Symptom - Percentile 18 T-scores: mean of general population = 50. 5 points is clinically meaningfully difference Percenti (more content not included)...[facility]11-15-2024 Telephone encounter Note* Telephone Encounter - Raven East DO - 05/17/2024 8:44 AM EST Thank you. Order filed. [facility] Miscellaneous Notes* Telephone Encounter - Raven East DO - 05/17/2024 8:44 AM EST Thank you. Order filed. * Telephone Encounter - Nelly Bernardo LPN - 05/17/2024 8:23 AM EST Patient still c/o lower back pain. Dr. East- please file order. PSS- please contact patient to schedule physical therapy. Nelly Bernardo LPN * Telephone Encounter - Raven East DO - 05/16/2024 5:43 PM EST Yes. If still having back pain, then referral to PT. I may need order pended. Raven East DO * Telephone Encounter - Juliocesar Apple - 05/16/2024 2:41 PM EST Patient requesting urine results documented in this encounterSycamore Medical Center11-15-2024 Telephone encounter Note * Telephone Encounter - Nelly Bernardo LPN - 05/17/2024 8:23 AM EST Patient still c/o lower back pain. Dr. East- please file order. PSS- please contact patient to schedule physical therapy. Nelly Bernardo LPN [facility]11-14-20[facility] Telephone encounter Note* Telephone Encounter - Raven East DO - 05/16/2024 5:43 PM EST Yes. If still having back pain, then referral to PT. I may need order pended. Raven East DO [facility]11-14-[facility] Telephone encounter Note* Telephone Encounter - Juliocesar Apple - 05/16/2024 2:41 PM EST Patient requesting urine results [facility] Work Phone: [phone] 414-833211-12-2024 Telephone encounter Note* Telephone Encounter - Linda Helms LPN - 05/14/2024 8:30 AM EST Called client services, cannot add the culture to the specimen. Called pt, she will come today for urine. Linda Helms LPN [facility]11-12-[facility] Miscellaneous Notes* Telephone Encounter - Linda Helms LPN - 05/14/2024 8:30 AM EST Called client services, cannot add the culture to the specimen. Called pt, she will come today for urine. Linda Helms LPN * Telephone Encounter - Raven East DO - 05/13/2024 5:01 PM EST Lot of bacteria in the urine. No leukocyte esterases or nitrates. Please submit another sample for culture. Order filed. documented in this encounterSycamore Medical Center11-11-2024 Telephone encounter Note * Telephone Encounter - Raven East DO - 05/13/2024 5:01 PM EST Lot of bacteria in the urine. No leukocyte esterases or nitrates. Please submit another sample for culture. Order filed. [facility] Telephone encounter Note* Telephone Encounter - Meme Martinez RN - 05/13/2024 3:52 PM EST Pt called inquiring about Zio results Zio Results: Patient had a min HR of 48 bpm, max HR of 169 bpm, and avg HR of 77 bpm. Predominant underlying rhythm was Sinus Rhythm. Slight P wave morphology changes were noted. 4 Supraventricular Tachycardia runs occurred, the run with the fastest interval lasting 4 beats with a max rate of 169 bpm, the longest lasting 7 beats with an avg rate of 123 bpm. Some episodes of Supraventricular Tachycardia may bepossible Atrial Tachycardia with variable block. Isolated SVEs were rare (<1.0%), SVE Couplets were rare (<1.0%), and no SVE Triplets were present. Isolated VEs were rare (<1.0%, 118), VE Couplets were rare (<1.0%, 2), and VE Triplets were rare (<1.0%, 1). [facility] Miscellaneous Notes* Telephone Encounter - Meme Martinez RN - 05/13/2024 3:52 PM EST Pt called inquiring about Zio results Zio Results: Patient had a min HR of 48 bpm, max HR of 169 bpm, and avg HR of 77 bpm. Predominant underlying rhythm was Sinus Rhythm. Slight P wave morphology changes were noted. 4 Supraventricular Tachycardia runs occurred, the run with the fastest interval lasting 4 beats with a max rate of 169 bpm, the longest lasting 7 beats with an avg rate of 123 bpm. Some episodes of Supraventricular Tachycardia may bepossible Atrial Tachycardia with variable block. Isolated SVEs were rare (<1.0%), SVE Couplets were rare (<1.0%), and no SVE Triplets were present. Isolated VEs were rare (<1.0%, 118), VE Couplets were rare (<1.0%, 2), and VE Triplets were rare (<1.0%, 1). documented in this encounterSycamore Medical Center11-06-2024 Telephone encounter Note * Telephone Encounter - Holly Bennett LISW - 05/08/2024 10:08 AM EST SOCIAL WORK FOLLOW UP NOTE: [facility] Date of service: May 07, 2024 Kellie Kang is being seen for a follow up social work visit. Today's visit includes: patient SW spoke with pt this date regarding possibly applying for social security disability. Pt reports she has not worked since onset of disease in May 2023 and does not feel able to return to work. SW discussed with pt applying for SSDI via phone or in person with the social security office. SW also discussed with pt that physician letters often assist in the application process and discussed this option with pt. Pt in agreement. SW drafted letter and had physician review and sign. 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 Copy made and sent to internal scanning. No other needs identified. KLEBER Chappell [facility]11-06-2024 Miscellaneous Notes* Telephone Encounter - Holly Bennett LISW - 05/08/2024 10:08 AM EST SOCIAL WORK FOLLOW UP NOTE: [facility] Date of service: May 07, 2024 Kellie Kang is being seen for a follow up social work visit. Today's visit includes: patient NOHELIA spoke with pt this date regarding possibly applying for social security disability. Pt reports she has not worked since onset of disease in May 2023 and does not feel able to return to work. SW discussed with pt applying for SSDI via phone or in person with the social security office. SW also discussed with pt that physician letters often assist in the application process and discussed this option with pt. Pt in agreement. SW drafted letter and had physician review and sign. 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 Copy made and sent to internal scanning. No other needs identified. KLEBER Chappell documented in this encounterSycamore [facility] Center11-04-2024 History of Present illness Narrative* Suzanne Ren RPFT - 05/06/2024 8:39 AM EST PULM FUNCTION: Provider: Raven East DO Assisting Tech: Suzanne Ren RPFT Spirometry w/BD: 1 DLCO: 1 documented in this encounterSycamore Medical Center10-31-2024 Telephone encounter Note * Telephone Encounter - Shabana Riddle LPN - 05/02/2024 3:26 PM EDT Spoke with pt. Informed of CT results, will call when x-rays from today have been resulted. Pt. Voiced understanding. Shabana Riddle LPN [facility]10-31-[facility] Miscellaneous Notes* Telephone Encounter - Shabana Riddle LPN - 05/02/2024 3:26 PM EDT Spoke with pt. Informed of CT results, will call when x-rays from today have been resulted. Pt. Voiced understanding. Shabana Riddle LPN * Telephone Encounter - Raven East DO - 05/02/2024 3:11 PM EDT Can let her know the CT of the chest was resulted today after she left. No change from last time which is good. Also, I went back and searched [facility] records from her visit in early March. They did a CT scan of her lumbar spine and did not report any evidence of cancer. Awaiting results of today's x-ray. We will call her when those are available. Raven East DO documented in this encounterSycamore Medical Center10-31-2024 Telephone encounter Note * Telephone Encounter - Raven East DO - 05/02/2024 3:11 PM EDT Can let her know the CT of the chest was resulted today after she left. No change from last time which is good. Also, I went back and searched [facility] records from her visit in early March. They did a CT scan of her lumbar spine and did not report any evidence of cancer. Awaiting results of today's x-ray. We will call her when those are available. Raven East DO [facility]10-[facility] History of Present illness Narrative* Oly Merino RT(R) - 05/02/2024 12:20 PM EDT Radiology Service Progress Note PATIENT NAME: Kellie Kang DATE OF SERVICE: May 02, 2024 TIME: 12:14 PM PATIENT IDENTITY VERIFICATION COMPLETED USING TWO (2) IDENTIFIERS: Name and Date of confirmedby patient verbally. FALL SCREENING: Has the patient had 2 falls in the last year or 1 fall with injury or currently using an Ambulatory Assistive Device (Walker, Cane, Wheelchair, Crutches, etc.)? No PATIENT GENDER DATA: Female. status: : No status: NO. PATIENT RELEVANT IMPLANT DATA REVIEWED: Not Applicable PATIENT PRESENTS WITH AN IMPLANTABLE OR ATTACHED PRINCIPAL ACCOUNT CLERK: No RADIOLOGY DEPARTMENT: General X-ray: Exam(s) Completed: Spine X-Ray(s): Lumbar AP / LAT / L5-S1 PERIPHERAL IV DATA: Not applicable SIGNED BY: RT Liana(R) May 02, 2024 12:14 PM documented in this encounterSycamore Medical Center10-31-2024 History of Present illness Narrative* Raven East DO - 05/02/2024 11:38 AM EDT Oncologic problem(s): 1) Limited stage small cell lung cancer. HPI: The patient is a 59-year-old female former smoker who under presented for evaluation of right neck mass. Right lower neck mass for about a month. Saw Dr. Lara who ordered CT neck. She had a CT of the neck with contrast enhancement on 05/12/2023. This study revealed a nodule in the thyroid, right-sided gland measuring 9 x 6 mm. There is heterogeneity versus second nodule in theleft thyroid. Measurements were not rendered. There was right supraclavicular adenopathy, level 4B measuring 4.1 x 2.0 cm. There is mass effect and moderate narrowing of the right jugular vein and anadjacent enlarged lymph node measuring 1.3 x 1.6 cm. There is brachial enlarged lymph nodes measuring 1.3 x 1.3. Note was made of anterior cervical fusion hardware and previous discectomy changes at L5-6. Emphysematous changes were noted in the lung apices. Patient underwent FNA of the right-sided cervical adenopathy on 05/19/2023. Pathology: Positive for malignant cells. 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 Per initial consultation: had Covid. She got symptoms 05/24. Tested positive that day. Sore throat, headache, fever and malaise. Symptoms resolved except fatigue. No change in chronic cough from COPD. Rarely productive. Wheezes ( calls her wheezy). Mild JO. Hasn't had to stop any activity. 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 No issues with stairs, etc. Normal appetite. Neck pain. Pain in right chest (3-4 years; stress test okay). Used to come and go. Now seems to radiate down from the neck mass. COPE in right occipital area. Comes and go for about month. Quit smoking at time of diagnosis. Smoked a ppd for about 45 years. No alcohol. . Three older children. Previous therapy: 1) Concurrent chemotherapy and radiation with cisplatin etoposide. Completed chemotherapy 08/31/2023. Presents for ongoing oncologic management. Interim history: Seen cardiology. Initiating beta-claudia. Had a stress test and echocardiogram. Right ventricular wall. Somewhat thickened. Dyspnea with stairs. No subjective sense of wheezing. Right lower back pain. Has h/o mild lumbar compression fracture from a remote fall. Pain does not radiate. Typically hurts when trying to stand up from sitting. Has had this pain before but has been lingering for about a month now. 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 metoprolol succinate ER (TOPROL XL) 25 mg 24 hr tablet Take 1 tablet by mouth once daily. acetaminophen (TYLENOL) 325 mg tablet Take 650 mg by mouth every 6 hours as needed. vitamin B complex (B COMPLEX ORAL) Take 1 tablet by mouth once daily. iv contrast (will be provided with radiology test) CT Chest W -Inject, intravenously, once for 1 dose.No IV access, insert saline lock prior to the beginning of sedation, infusion, injection of imaging exam. Discontinue saline lock post exam. If Pt. has a central line or IVAD, may access for administration according to line specific nursing protocol. Once exam is complete flush line and de-accessaccording to line specific nursing protocol in the CT contrast administration guidelines link. (Patient not taking: Reported on 02/21/2024) iv contrast (will be provided with radiology test) CT ABD/PEL -Inject, intravenously, once for 1 dose.No IV access, insert saline lock prior to the beginning of sedation, infusion, injection of imaging exam. Discontinue saline lock post exam. If Pt. has a central line or IVAD, may access for administration according to line specific nursing protocol. Once exam is complete flush line and de-accessaccording to line specific nursing protocol in the CT contrast administration guidelines link. enteric contrast (will be provided with radiology test) For CT ABD/PEL W IVCON Routine order Administer, As Directed One Time Only, via Oral, Rectal, both Oral and Rectal, Enteric Tube, Stoma or Indwelling Catheter, Enteric Contrast as designated per enteric contrast guidelines iv contrast (will be provided with radiology test) CT Chest W -Inject, intravenously, once for 1 dose.No IV access, insert saline lock prior to the beginning of sedation, infusion, injection of imaging exam. Discontinue saline lock post exam. If Pt. has a central line or IVAD, may access for administration according to line specific nursing protocol. Once exam is complete flush line and de-accessaccording to line specific nursing protocol in the CT contrast administration guidelines link. iv contrast (will be provided with radiology test) CT ABD/PEL -Inject, intravenously, once for 1 dose.No IV access, insert saline lock prior to the beginning of sedation, infusion, injection of imaging exam. Discontinue saline lock post exam. If Pt. has a central line or IVAD, may access for administration according to line specific nursing protocol. Once exam is complete flush line and de-accessaccording to line specific nursing protocol in the CT contrast administration guidelines link. enteric contrast (will be provided with radiology test) For CT ABD/PEL W IVCON Routine order Administer, As Directed One Time Only, via Oral, Rectal, both Oral and Rectal, Enteric Tube, Stoma or Indwelling Catheter, Enteric Contrast as designated per enteric contrast guidelines prochlorperazine (COMPAZINE) 10 mg tablet Take 1 tablet by mouth every 6 hours as needed. (Patient not taking: Reported on 02/21/2024) albuterol HFA (PROVENTIL HFA, VENTOLIN HFA) 90 mcg/actuation inhaler Inhale 2 Puffs as instructed every 4 hours as needed. (Patient not taking: Reported on 02/21/2024) No current facility-administered medications for this visit. Social History Tobacco Use Smoking status: Former Current packs/day: 0.00 Average packs/day: 1 pack/day for 45.0 years (45.0 ttl pk-yrs) Types: Cigarettes Start date: 05/27/1978 Quit date: 05/27/2023 Years since quittin.9 Smokeless tobacco: Never Vaping Use Vaping status: Never Used Substance Use Topics Alcohol use: No Drug use: No Family History Problem Relation Age of Onset Cancer Mother leukemia Heart Father [place] other (respiratory failure) Sister Genitourinary () Paternal Grandfather Mother age 51 from leukemia. ROS: Constitutional: Normal appetite. HEENT: No recent change in voice, vision or hearing. Resp: See above. CVS: No exertional chest pain, PND or orthopnea. No extremity swelling/edema. No symptoms of claudication. No painful or tender varicose veins. GI: No dysphagia or odynophagia. No reflux. IBS--more constipation. : No dysuria or gross hematuria. No symptoms of bladder outlet obstruction. Endo: No hot flashes. No polyuria or polydipsia. No heat or cold intolerance. Derm: No current rash. No history of jaundice. No diffuse pruritis. Heme: No unusual bleeding and unexplained bruising. Psych: Much less anxious. PHYSICAL EXAM: Vitals: Blood pressure 121/84, pulse 69, temperature 36.4 C (97.5 F), temperature source Temporal, weight 79.6 kg (175 lb 8 oz), SpO2 97%. Better-appearing and in no acute distress. EYES: Sclerae are anicteric bilaterally. LYMPHATIC: Resolution of previous adenopathy. RESPIRATORY: Inspiratory breath sounds are of diminished intensity in all mcelroy. CARDIOVASCULAR: Rhythm is regular. ABDOMEN: The abdomen is nondistended. Extremities: No swelling or edema. SKIN: No jaundice or rash. LABS: IMAGING: PET scan 06/05/2023: IMPRESSION: * Hypermetabolic right lower cervical, mediastinal, and right hilar lymphadenopathy, compatible with biopsy-proven malignancy. * No discrete hypermetabolic pulmonary nodule/mass. * No FDG avid neoplastic process in the abdomen/pelvis. No suspicious FDG avid osseous lesion. ASSESSMENT/PLAN: (C34.90) Small cell lung cancer (HCC) (primary encounter diagnosis) Assessment: -The patient is a 58-year-old female former, 55-xspf-shyg smoker with diagnosis of COPD who underwent evaluation for low right-sided cervical/supraclavicular adenopathy and was found to have small cell carcinoma. Limited stage. -Tolerated chemotherapy overall fairly well but was complicated by LUCIANA, dehydration, nausea (responded best to olanzapine). Dexamethasone made her very tremulous. -Posttherapy CTs demonstrated IA. -Completed PCI. -Reviewed CT scans in detail. Further response in cervical/supraclavicular nodes. JENAE. -CT Chest pending, but per my review stable. Plan: -Labs and repeat CTs in 3-4 months. (R06.00, R06.89) Dyspnea and respiratory abnormalities Comment: New symptom. Had echo--mild right ventricular wall thickening with normal right ventricular size and systolic function. Potentially from previous radiation? Plan: LUNG DIFFUSION CAPACITY (DLCO), SPIROMETRY - BASELINE AND POST DILATOR (M54.50) Acute right-sided low back pain without sciatica Comment: She has had this pain in the past but it has been lingering now for about a month. Plan: XR LUMBAR LIMITED 2V AP/LAT Portions of this documentation were copied and pasted from previous office visit notes in order to provide a cohesive continuity of the history. The note has been reviewed and edited and updated as necessary. Raven East DO documented in this encounter[facility]10-[facility] History of Present illness Narrative* Yasmin Hankins RT(R) - 04/25/2024 11:20 AM EDT Radiology Service Progress Note DATE OF SERVICE: April 25, 2024 TIME: 3:13 PM PATIENT IDENTITY VERIFICATION COMPLETED USING TWO (2) STANDARD IDENTIFIERS: Name and Date of confirmed by patient verbally. FALL SCREENING: Has the patient had 2 falls in the last year or 1 fall with injury or currently using an Ambulatory Assistive Device (Walker, Cane, Wheelchair, Crutches, etc.)? No PATIENT GENDER DATA: Female. status: : No status: NO. PATIENT RELEVANT IMPLANT DATA REVIEWED: Yes PATIENT PRESENTS WITH AN IMPLANTABLE OR ATTACHED PRINCIPAL ACCOUNT CLERK: No ALLERGIES: Reviewed and unchanged CONTRAST ALLERGY: NO. EXAM: CT -CONTRAST INDUCED NEPHROPATHY RISK FACTORS: Not applicable CREATININE: Creatinine Date Value Ref Range Status 04/25/2024 1.20 (H) 0.58 - 0.96 mg/dL Final 01/17/2024 1.23 (H) 0.58 - 0.96 mg/dL Final 12/27/2023 1.19 (H) 0.58 - 0.96 mg/dL Final Estimated Glomerular Filtration Rate Date Value Ref Range Status 04/25/2024 52 (L) >=60 mL/min/1.73m Final Comment: Estimated Glomerular Filtration Rate (eGFR) is calculated using the 2020 CKD-EPI creatinine equation. This equation utilizes serum creatinine, sex, and age as parameters. The creatinine assay has traceable calibration to isotope dilution- mass spectrometry. Refer to KDIGO guidelines for clinical interpretation. In patients with unstable renal function, e.g. those with acute kidney injury, the eGFRmay not accurately reflect actual GFR. P.O.C.T. RESULTS: POC done: Yes, See Lab Tab April 25, 2024 TREATMENT: N/A PERIPHERAL IV DATA: Ambulatory: A peripheral IV was started in the Left antecubital site with a Angio cath: 22 gauge. RADIOLOGY DEPARTMENT: CT; Exam(s) Completed: Chest and Neck SIGNATURE: RT Tomeka(R) PATIENT NAME: Kellie Kang DATE: April 25, 2024 TIME: 3:13 PM documented in this encounterSy[facility]10-22-2024 Telephone encounter Note * Telephone Encounter - Juliocesar Apple - 04/23/2024 1:03 PM EDT Updated schedule. Informed patient of new time [facility] Work Phone: 1(120) 358-318910-22-2024 Miscellaneous Notes* Telephone Encounter - Juliocesar Apple - 04/23/2024 1:03 PM EDT Updated schedule. Informed patient of new time * Telephone Encounter - Nelly Bernardo LPN - 04/22/2024 12:46 PM EDT PSS- please correct patient's schedule to reflect that she will only be getting the CT chest and CTneck. I don't think she will need the oral contrast then. Patient is aware. Nelly Bernardo LPN * Telephone Encounter - Xiao Perez APRN.CNP - 04/22/2024 12:07 PM EDT Insurance will not approve CT abd/pelvis for [address] abd/pelvis (done in January 2024). Xiao Perez APRN.CNP * Telephone Encounter - Nelly Bernardo LPN - 04/22/2024 12:01 PM EDT It looks like the CT chest and CT neck have been approved but they are denying the CT abd/pelvis. 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 The physician from [facility] DID receive the CT Abd/Pel Results from 01/17/24. They denied it AGAIN after that because they said those scan results were sufficient, and the patient does not need another scan. A peer to peer will have to be done to overturn the results of this case The peer to peer scheduling line is [phone] and case number is [id number]. Nelly Bernardo LPN * Telephone Encounter - Juliocesar Apple - 04/22/2024 11:34 AM EDT Patient states she received a phone call stating that upcoming CT is not authorized. She states insurance shows she had one less than 3 months ago and is needing a reason for having it done again. documented in this encounterSy[facility] Center10-21-2024 Telephone encounter Note * Telephone Encounter - Nelly Bernardo LPN - 04/22/2024 12:46 PM EDT PSS- please correct patient's schedule to reflect that she will only be getting the CT chest and CTneck. I don't think she will need the oral contrast then. Patient is aware. Nelly Bernardo LPN [facility] Telephone encounter Note* Telephone Encounter - Xiao Perez APRN.CNP - 04/22/2024 12:07 PM EDT Insurance will not approve CT abd/pelvis for [address] abd/pelvis (done in January 2024). Xiao Perez APRN.[facility] Work Phone: [phone]) 464-849610-21-2024 Telephone encounter Note* Telephone Encounter - Nelly Bernardo LPN - 04/22/2024 12:01 PM EDT It looks like the CT chest and CT neck have been approved but they are denying the CT abd/pelvis. 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 The physician from [facility] DID receive the CT Abd/Pel Results from 01/17/24. They denied it AGAIN after that because they said those scan results were sufficient, and the patient does not need another scan. A peer to peer will have to be done to overturn the results of this case The peer to peer scheduling line is [phone] and case number is [id number]. Nelly Bernardo LPN [facility] Telephone encounter Note* Telephone Encounter - Juliocesar Apple - 04/22/2024 11:34 AM EDT Patient states she received a phone call stating that upcoming CT is not authorized. She states insurance shows she had one less than 3 months ago and is needing a reason for having it done again. [facility] Telephone encounter Note* Telephone Encounter - Meme Martinez RN - 03/20/2024 8:16 AM EDT Spoke with pt. Pt is available today around or after 1 pm. [facility] Miscellaneous Notes* Telephone Encounter - Meme Martinez RN - 03/20/2024 8:16 AM EDT Spoke with pt. Pt is available today around or after 1 pm. * Telephone Encounter - Neptali Lake MD - 03/19/2024 5:45 PM EDT I tried to call Kellie via telephone to r/v her echo and stress test results however there was no answer. Relayed to nursing clinic staff to call patient for a convenient time to connect with her * Telephone Encounter - Mahamed Doran RN - 03/19/2024 2:22 PM EDT Pt called left VM asking for results of nm stress test and ECHO and whether or not she should continue metoprolol. LOVE 02/21/24 Dr. Lake ASSESSMENT/PLAN: 1. SVT (supraventricular tachycardia) (HCC) - ICD9: 427.89, ICD10: I47.10 (primary diagnosis) - Metoprolol succinate 25 mg po daily. She may start with half a tablet metoprolol 12.5 mg po once daily for 3-5 days and once tolerating well increase to metoprolol 25 mg po once daily dosing (take 1 tablet daily) . May try to increase metoprolol doing to 50 mg po once daily (2 metoprolol tablets taken once a day). Side effect profile of medication was d/with the patient. Keep awake resting heart rates >50 bpm and SBP >100-110 mmHg (once no lightheadedness) NOV not scheduled documented in this encounterSycamore [facility] Center09-17-2024 Telephone encounter Note * Telephone Encounter - Neptali Lake MD - 03/19/2024 5:45 PM EDT I tried to call Kellie via telephone to r/v her echo and stress test results however there was no answer. Relayed to nursing clinic staff to call patient for a convenient time to connect with her [facility] Telephone encounter Note* Telephone Encounter - Mahamed Doran RN - 03/19/2024 2:22 PM EDT Pt called left VM asking for results of nm stress test and ECHO and whether or not she should continue metoprolol. LOVE 02/21/24 Dr. Lake ASSESSMENT/PLAN: 1. SVT (supraventricular tachycardia) (HCC) - ICD9: 427.89, ICD10: I47.10 (primary diagnosis) - Metoprolol succinate 25 mg po daily. She may start with half a tablet metoprolol 12.5 mg po once daily for 3-5 days and once tolerating well increase to metoprolol 25 mg po once daily dosing (take 1 tablet daily) . May try to increase metoprolol doing to 50 mg po once daily (2 metoprolol tablets taken once a day). Side effect profile of medication was d/with the patient. Keep awake resting heart rates >50 bpm and SBP >100-110 mmHg (once no lightheadedness) NOV not scheduled [facility] History of Present illness Narrative* Ronn WernerPATSY - 03/18/2024 8:00 AM EDT RADIOLOGY SERVICE PROGRESS NOTE SERVICE DATE: 03/18/2024 SERVICE TIME: 8:53 AM PATIENT IDENTITY VERIFICATION COMPLETED USING TWO (2) STANDARD IDENTIFIERS: Name and Date of confirmed by patient verbally and Name and Date of confirmed by identification band FALL SCREENING: Has the patient had 2 falls in the last year or 1 fall with injury or currently using an Ambulatory Assistive Device (Walker, Cane, Wheelchair, Crutches, etc.)? No PATIENT GENDER DATA: .female : No ALLERGIES: Reviewed and unchanged MEDICATIONS REVIEWED: Not applicable PATIENT RELEVANT IMPLANT DATA REVIEWED: Not Applicable PATIENT PRESENTS WITH AN IMPLANTABLE OR ATTACHED PRINCIPAL ACCOUNT CLERK: No CREATININE: Creatinine Date Value Ref Range Status 01/17/2024 1.23 (H) 0.58 - 0.96 mg/dL Final 12/27/2023 1.19 (H) 0.58 - 0.96 mg/dL Final 11/23/2023 1.13 (H) 0.58 - 0.96 mg/dL Final Estimated Glomerular Filtration Rate Date Value Ref Range Status 01/17/2024 51 (L) >=60 mL/min/1.73m Final Comment: Estimated Glomerular Filtration Rate (eGFR) is calculated using the 2020 CKD-EPI creatinine equation. This equation utilizes serum creatinine, sex, and age as parameters. The creatinine assay has traceable calibration to isotope dilution- mass spectrometry. Refer to KDIGO guidelines for clinical interpretation. In patients with unstable renal function, e.g. those with acute kidney injury, the eGFRmay not accurately reflect actual GFR. P.O.C.T. RESULTS: N/A March 18, [address] PERFORMED: No IV SITE: Ambulatory: A peripheral IV was started in the Right hand with a Angio cath: 24 gauge. POST EXAM PIV STATUS: Discontinued PROCEDURE TYPE: NM Stress: 13.3 mCi [id number] was administered IV for Rest Imaging at 7:51 by . 35.4 mCi [id number] was administered IV for Stress Imaging at 9:04 by mm. PATIENT DISCHARGED TO: Ambulatory patient, left NM department area. A Diagnostic radioactive procedure has taken place, with no further precautions necessary other than routine body substance precautions. More information regarding radiation safety can be found usingthis link: [email or web address] SIGNATURE: PATSY Marley PATIENT NAME: Kellie Kang DATE: March 18, 2024 TIME: 8:53 AM PAGER/CONTACT #: documented in this encounterSycamore [facility] Center09-16-2024 NoteHNO ID: [id number] Author: WERNER BA CNMT Service: Radiology Author Type: Technologist Type: Progress Notes Filed: 03/18/2024 09:11 Note Text: RADIOLOGY SERVICE PROGRESS NOTE SERVICE DATE: 03/18/2024 SERVICE TIME: 8:53 AM PATIENT IDENTITY VERIFICATION COMPLETED USING TWO (2) STANDARD IDENTIFIERS: Name and Date of confirmed by patient verbally and Name and Date of confirmed by identification band FALL SCREENING: Has the patient had 2 falls in the last year or 1 fall with injury or currently using an Ambulatory Assistive Device (Walker, Cane, Wheelchair, Crutches, etc.)? No PATIENT GENDER DATA: .female : No ALLERGIES: Reviewed and unchanged MEDICATIONS REVIEWED: Not applicable PATIENT RELEVANT IMPLANT DATA REVIEWED: Not Applicable PATIENT PRESENTS WITH AN IMPLANTABLE OR ATTACHED PRINCIPAL ACCOUNT CLERK: No CREATININE: Creatinine Date Value Ref Range Status 01/17/2024 1.23 (H) 0.58 - 0.96 mg/dL Final 12/27/2023 1.19 (H) 0.58 - 0.96 mg/dL Final 11/23/2023 1.13 (H) 0.58 - 0.96 mg/dL Final Estimated Glomerular Filtration Rate Date Value Ref Range Status 01/17/2024 51 (L) >=60 mL/min/1.73m? Final Comment: Estimated Glomerular Filtration Rate (eGFR) is calculated using the 2020 CKD-EPI creatinine equation. This equation utilizes serum creatinine, sex, and age as parameters. The creatinine assay has traceable calibration to isotope dilution-mass spectrometry. Refer to KDIGO guidelines for clinical interpretation. In patients with unstable renal function, e.g. those with acute kidney injury, the eGFR may not accurately reflect actual GFR. P.O.C.T. RESULTS: N/A March 18, [address] PERFORMED: No IV SITE: Ambulatory: A peripheral IV was started in the Right hand with a Angio cath: 24 gauge. POST EXAM PIV STATUS: Discontinued PROCEDURE TYPE: NM Stress: 13.3 mCi [id number] was administered IV for Rest Imaging at 7:51 by . 35.4 mCi [id number]-[id number] was administered IV for Stress Imaging at 9:04 by mm. PATIENT DISCHARGED TO: Ambulatory patient, left NM department area. A Diagnostic radioactive procedure has taken place, with no further precautions necessary other than routine body substance precautions. More information regarding radiation safety can be found using this link: [email or web address] SIGNATURE: Werner Ba [facility] PATIENT NAME: Kellie Kang DATE: March 18, 2024 TIME: 8:53 AM [facility]AGER[facility]CONTACT [id number] Telephone encounter Note * Telephone Encounter - Nelly Bernardo LPN - 02/28/2024 4:26 PM EDT Patient was prescribed metoprolol by cardiology. She contacted oncology office with side effects. Patient was taking 25 mg Q hs from February 20 thru February 25; feeling tired and sleeping a lot. She decreased the dose to 12.5 mg last night. BP today was as follows: 1100- 91/54 1145- 93/59 1300- 87/55 1600- 105/69 Instructed patient to contact cardiology office and that I would pass a note along. Nelly Bernardo LPN [facility]08-28-[facility] Miscellaneous Notes* Telephone Encounter - Nelly Bernardo LPN - 02/28/2024 4:26 PM EDT Patient was prescribed metoprolol by cardiology. She contacted oncology office with side effects. Patient was taking 25 mg Q hs from February 20 thru February 25; feeling tired and sleeping a lot. She decreased the dose to 12.5 mg last night. BP today was as follows: 1100- 91/54 1145- 93/59 1300- 87/55 1600- 105/69 Instructed patient to contact cardiology office and that I would pass a note along. Nelly Bernardo LPN * Telephone Encounter - Juliocesar Apple - 02/28/2024 1:36 PM EDT Patient has questions regarding blood pressure and medications that she is prescribed. documented in this encounterSycamore [facility] Center08-28-2024 Telephone encounter Note * Telephone Encounter - Juliocesar Apple - 02/28/2024 1:36 PM EDT Patient has questions regarding blood pressure and medications that she is prescribed. [facility] Work Phone: 1(970) 678-862508-21-2024 History of Present illness Narrative* Neptali Lake MD - 02/21/2024 8:20 AM EDT Images from the original note were not included. [facility] SECTION OF REGIONAL CARDIOLOGY OUTPATIENT VISIT DATE 02/21/2024 OUTPATIENT VISIT TYPE NEW PRIMARY CARE PHYSICIAN: Chinyere Lara (Yaya) [address] [place] [address] [place] [address] Patient is being seen at the request of the referring physician for Arrhythmia HISTORY OF PRESENT ILLNESS: Ms. 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 She is accompanied by her . She reported lightheadedness and 'microheadaches' lasting seconds long following radiation therapy.She experiences palpitations walking up stairs or sometimes while sitting. Lasts seconds long. Associated with lightheadedness. She experiences SOB when climbing stairs. She endorses intermittent brief episodes of substernal chest discomfort. She denies chest pain, SOB, palpitations, orthopnea, PND, leg swelling, lightheadedness, syncope. . [place]iop[place] 01/28 to 02/03/2024: 53-150, predominant underlying rhythm sinus, 2 VT runs-fastest and longest at 135 bpm 6 beats long. 3 SVT runs-fastest at 150 bpm lasting 8 beats; longest at 7 beats 121 bpm. Possible atrial tachycardia. 1% SVE isolated and couplets, 1% VEs isolated and couplets. 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) 06/02/2023: Small cell lung cancer, unspecified laterality (HCC) PAST SURGICAL HISTORY No date: ANESTHESIA HERNIA REPAIR LOWER ABDOMEN NOS No date: PAST SURGICAL HISTORY OF Comment: breast biopsy No date: TOTAL ABDOMINAL HYSTERECT W/WO RMVL TUBE OVARY Comment: OVARIES REMAIN Social History Tobacco Use Smoking status: Former Current packs/day: 0.00 Average packs/day: 1 pack/day for 45.0 years (45.0 ttl pk-yrs) Types: Cigarettes Start date: 05/27/1978 Quit date: 05/27/2023 Years since quittin.7 Smokeless tobacco: Never Vaping Use Vaping status: Never Used Substance Use Topics Alcohol use: No Drug use: No FAMILY HISTORY Problem Relation Age of Onset Cancer Mother leukemia Heart Father [place] other (respiratory failure) Sister Genitourinary () Paternal Grandfather ALLERGIES No Known Allergies CURRENT MEDICATIONS: iv contrast (will be provided with radiology test) CT Chest W -Inject, intravenously, once for 1 dose.No IV access, insert saline lock prior to the beginning of sedation, infusion, injection of imaging exam. Discontinue saline lock post exam. If Pt. has a central line or IVAD, may access for administration according to line specific nursing protocol. Once exam is complete flush line and de-accessaccording to line specific nursing protocol in the CT contrast administration guidelines link. iv contrast (will be provided with radiology test) CT ABD/PEL -Inject, intravenously, once for 1 dose.No IV access, insert saline lock prior to the beginning of sedation, infusion, injection of imaging exam. Discontinue saline lock post exam. If Pt. has a central line or IVAD, may access for administration according to line specific nursing protocol. Once exam is complete flush line and de-accessaccording to line specific nursing protocol in the CT contrast administration guidelines link. enteric contrast (will be provided with radiology test) For CT ABD/PEL W IVCON Routine order Administer, As Directed One Time Only, via Oral, Rectal, both Oral and Rectal, Enteric Tube, Stoma or Indwelling Catheter, Enteric Contrast as designated per enteric contrast guidelines acetaminophen (TYLENOL) 325 mg tablet Take 650 mg by mouth every 6 hours as needed. iv contrast (will be provided with radiology test) CT Chest W -Inject, intravenously, once for 1 dose.No IV access, insert saline lock prior to the beginning of sedation, infusion, injection of imaging exam. Discontinue saline lock post exam. If Pt. has a central line or IVAD, may access for administration according to line specific nursing protocol. Once exam is complete flush line and de-accessaccording to line specific nursing protocol in the CT contrast administration guidelines link. iv contrast (will be provided with radiology test) CT ABD/PEL -Inject, intravenously, once for 1 dose.No IV access, insert saline lock prior to the beginning of sedation, infusion, injection of imaging exam. Discontinue saline lock post exam. If Pt. has a central line or IVAD, may access for administration according to line specific nursing protocol. Once exam is complete flush line and de-accessaccording to line specific nursing protocol in the CT contrast administration guidelines link. enteric contrast (will be provided with radiology test) For CT ABD/PEL W IVCON Routine order Administer, As Directed One Time Only, via Oral, Rectal, both Oral and Rectal, Enteric Tube, Stoma or Indwelling Catheter, Enteric Contrast as designated per enteric contrast guidelines vitamin B complex (B COMPLEX ORAL) Take 1 tablet by mouth once daily. prochlorperazine (COMPAZINE) 10 mg tablet Take 1 tablet by mouth every 6 hours as needed. albuterol HFA (PROVENTIL HFA, VENTOLIN HFA) 90 mcg/actuation inhaler Inhale 2 Puffs as instructed every 4 hours as needed. PHYSICAL EXAMINATION: BP 120/70 Pulse 74 Ht 162.6 cm (5' 4) Wt 76.7 kg (169 lb) SpO2 97% BMI 29.01 kg/m General: Appears comfortable in no apparent cardiopulmonary distress Neck: No JVD, no bruits CVS: S1, S2, No m/r/g Chest: CTAB Abd: Soft, nontender, no masses, BS present Ext: No pedal edema, pedal pulses 2+ bilaterally Neuro: No focal neurological deficits CARDIOVASCULAR MEDICINE TESTING: Last CT Result Conclusion CT CHEST W IVCON Exam End: 01/17/2024 11:41 AM (Final result) Impression: IMPRESSION: 1. Stable RIGHT perihilar post radiation changes. 2. No new or worsening lymphadenopathy in the chest. Please see separately dictated report for CT of the neck for description of supraclavicular lymphadenopathy. 3. Borderline enlarged distal paraesophageal and portacaval lymph nodes are unchanged. Countersinker Balance Screw Hole: KACIE Transcribe Date/Time: Jan 20 2024 4:21P Dictated by : ONIEL BAE MD This examination was interpreted and the report reviewed and electronically signed by: ONIEL BAE MD on Jan 20 2024 4:29PM EST ASSESSMENT/PLAN: 1. SVT (supraventricular tachycardia) (HCC) - ICD9: 427.89, ICD10: I47.10 (primary diagnosis) - Metoprolol succinate 25 mg po daily. She may start with half a tablet metoprolol 12.5 mg po once daily for 3-5 days and once tolerating well increase to metoprolol 25 mg po once daily dosing (take 1 tablet daily) . May try to increase metoprolol doing to 50 mg po once daily (2 metoprolol tablets taken once a day). Side effect profile of medication was d/with the patient. Keep awake resting heart rates >50 bpm and SBP >100-110 mmHg (once no lightheadedness) 2. Ventricular tachycardia (HCC) - ICD9: 427.1, ICD10: I47.20 NSVT noted on monitor. - Metoprolol as above - Obtain ECHO - Obtain nuclear stress test. Mychart/call with results Neptali Lake MD, [facility] documented in this [facility] Telephone encounter Note * Telephone Encounter - Raven East DO - 02/19/2024 7:54 PM EDT Then let's find her something in the [facility] [place] [place] with cardiology sooner. Thank you, Dr. East [facility]08-[facility] Miscellaneous Notes* Telephone Encounter - Raven East DO - 02/19/2024 7:54 PM EDT Then let's find her something in the [facility] [place] [facility] [place] with cardiology sooner. Thank you, Dr. East * Telephone Encounter - Cathy Anguiano RN - 02/13/2024 11:56 AM EDT Our first new patient opening in [place] is in August or August. We are fully book the rest of 2023. Cathy Anguiano RN * Telephone Encounter - Rena Espino - 02/13/2024 10:16 AM EDT Spoke with [facility] and got patient in with them in 05/22. (First available here is 08/19/24). [facility] - any chance we can work this patient in sooner here? Rena Espino * Telephone Encounter - Nelly Bernardo LPN - 02/12/2024 8:54 AM EDT Please file order. Nelly Bernardo LPN * Telephone Encounter - Ritu Soto - 02/12/2024 8:43 AM EDT Please enter order for cariology consult. Thank you, Ritu Jesus * Telephone Encounter - Raven East DO - 02/12/2024 8:23 AM EDT My interpretation of the ZIO monitor is that she had several episodes of elevated heart rate that corresponded to when she recorded symptoms. I would like to get her set up with cardiology MELANIE within the clinic system. documented in this encounterSy[facility]08-[facility]-2024 Telephone encounter Note * Telephone Encounter - Cathy Anguiano, RN - 02/13/2024 11:56 AM EDT Our first new patient opening in [place] is in August or August. We are fully book the rest of 2023. Cathy Anguiano, RN [facility]08-13-[facility] Telephone encounter Note* Telephone Encounter - Holly Patel - 02/13/2024 10:25 AM EDT Rena from the office of Dr. East called in to schedule the patient a new patient appointment.Patient is referred for orthostasis. Patient was scheduled for 05/22/[address] Diane. [facility] Miscellaneous Notes* Telephone Encounter - Holly Patel - 02/13/2024 10:25 AM EDT Rena from the office of Dr. East called in to schedule the patient a new patient appointment.Patient is referred for orthostasis. Patient was scheduled for 05/22/[address] Diane. documented in this encounterSy[facility]08-13-2024 Telephone encounter Note * Telephone Encounter - Rena Espino - 02/13/2024 10:16 AM EDT Spoke with [facility] and got patient in with them in 05/22. (First available here is 08/19/24). [facility] - any chance we can work this patient in sooner here? Rena Espino [facility]08-12-[facility] Telephone encounter Note* Telephone Encounter - Nelly Bernardo LPN - 02/12/2024 8:54 AM EDT Please file order. Nelly Bernardo LPN [facility] Telephone encounter Note* Telephone Encounter - Ritu Soto - 02/12/2024 8:43 AM EDT Please enter order for cariology consult. Thank you, Ritu Crane Pss [facility]08-12-[facility] Telephone encounter Note* Telephone Encounter - Raven East DO - 02/12/2024 8:23 AM EDT My interpretation of the ZIO monitor is that she had several episodes of elevated heart rate that corresponded to when she recorded symptoms. I would like to get her set up with cardiology MELANIE within the clinic system. [facility]08-01-[facility] Telephone encounter Note* Telephone Encounter - Rena Espino - 02/01/2024 4:32 PM EDT Spoke with patient and scheduled as directed. Rena Espino [facility] Miscellaneous Notes* Telephone Encounter - Rena Espino - 02/01/2024 4:32 PM EDT Spoke with patient and scheduled as directed. Rena Espino * Telephone Encounter - Raven East DO - 02/01/2024 4:24 PM EDT Orders filed. * Telephone Encounter - Nelly Bernardo LPN - 01/31/2024 9:22 AM EDT Orders filed. CT neck pended as well (not sure if needed). Nelly Bernardo LPN * Telephone Encounter - Rena Espino - 01/31/2024 9:[address] CAP orders for scheduling purposes. Rena Espino * Telephone Encounter - Carla Cruz - 01/26/2024 3:09 PM EDT Check out comments:Zio monitor. CBC/CMP/LDH CT C/A/P then OV in about 3 months. documented in this encounterSy[facility]08-01-2024 Telephone encounter Note * Telephone Encounter - Raven East DO - 02/01/2024 4:24 PM EDT Orders filed. [facility] Telephone encounter Note* Telephone Encounter - Nelly Bernardo LPN - 01/31/2024 9:22 AM EDT Orders filed. CT neck pended as well (not sure if needed). Nelly Bernardo LPN [facility] Telephone encounter Note* Telephone Encounter - Rena Espino - 01/31/2024 9:[address] CAP orders for scheduling purposes. Rena Espino [facility]07-29-[facility] History of Present illness Narrative* Ginger Wright MA - 01/29/2024 11:41 AM EDT EVENT MONITOR DISPOSABLE PATCH INSTRUCTIONS Patient Name: Kellie Kang Clinic Number: [id number] Skin prepped and cleansed with alcohol Patch secured to prepped area Monitor Activated Serial #: [id number] Patient Instructed: Prescribed order timeframe Bathing guidelines Usage of event button and diary documentation Return of monitor at the end of prescribed order Call with problems [phone] or [phone] ext. [phone] Patient expresses a good understanding of instructions Ginger Wright MA documented in this encounterSy[facility]07-26-2024 Telephone encounter Note * Telephone Encounter - Carla Cruz - 01/26/2024 3:09 PM EDT Check out comments:Zio monitor. CBC/CMP/LDH CT C/A/P then OV in about 3 months. [facility] History of Present illness Narrative* Raven East DO - 01/26/2024 11:53 AM EDT Oncologic problem(s): 1) Limited stage small cell lung cancer. HPI: The patient is a 58-year-old female former smoker who under presented for evaluation of right neck mass. Right lower neck mass for about a month. Saw Dr. Lara who ordered CT neck. She had a CT of the neck with contrast enhancement on 05/12/2023. This study revealed a nodule in the thyroid, right-sided gland measuring 9 x 6 mm. There is heterogeneity versus second nodule in theleft thyroid. Measurements were not rendered. There was right supraclavicular adenopathy, level 4B measuring 4.1 x 2.0 cm. There is mass effect and moderate narrowing of the right jugular vein and anadjacent enlarged lymph node measuring 1.3 x 1.6 cm. There is brachial enlarged lymph nodes measuring 1.3 x 1.3. Note was made of anterior cervical fusion hardware and previous discectomy changes at L5-6. Emphysematous changes were noted in the lung apices. Patient underwent FNA of the right-sided cervical adenopathy on 05/19/2023. Pathology: Positive for malignant cells. 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 Per initial consultation: had Covid. She got symptoms 05/24. Tested positive that day. Sore throat, headache, fever and malaise. Symptoms resolved except fatigue. No change in chronic cough from COPD. Rarely productive. Wheezes ( calls her wheezy). Mild JO. Hasn't had to stop any activity. 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 No issues with stairs, etc. Normal appetite. Neck pain. Pain in right chest (3-4 years; stress test okay). Used to come and go. Now seems to radiate down from the neck mass. COPE in right occipital area. Comes and go for about month. Quit smoking at time of diagnosis. Smoked a ppd for about 45 years. No alcohol. . Three older children. Previous therapy: 1) Concurrent chemotherapy and radiation with cisplatin etoposide. Completed chemotherapy 08/31/2023. Presents for ongoing oncologic management. Interim history: Still having episodes orthostasis. Can occur anytime even if watching TV. Random, very brief pain in head in various places. No stumbling or falls. No palpitations or sensation of tachycardia. Hydrating well. Fatigued. Neuropathy of hands and toes stable. Has not resumed smoking. Not short of breath at rest or with mild to moderate exertion. No cough. 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 vitamin B complex (B COMPLEX ORAL) Take 1 tablet by mouth once daily. prochlorperazine (COMPAZINE) 10 mg tablet Take 1 tablet by mouth every 6 hours as needed. iv contrast (will be provided with radiology test) CT Chest W -Inject, intravenously, once for 1 dose.No IV access, insert saline lock prior to the beginning of sedation, infusion, injection of imaging exam. Discontinue saline lock post exam. If Pt. has a central line or IVAD, may access for administration according to line specific nursing protocol. Once exam is complete flush line and de-accessaccording to line specific nursing protocol in the CT contrast administration guidelines link. iv contrast (will be provided with radiology test) CT ABD/PEL -Inject, intravenously, once for 1 dose.No IV access, insert saline lock prior to the beginning of sedation, infusion, injection of imaging exam. Discontinue saline lock post exam. If Pt. has a central line or IVAD, may access for administration according to line specific nursing protocol. Once exam is complete flush line and de-accessaccording to line specific nursing protocol in the CT contrast administration guidelines link. enteric contrast (will be provided with radiology test) For CT ABD/PEL W IVCON Routine order Administer, As Directed One Time Only, via Oral, Rectal, both Oral and Rectal, Enteric Tube, Stoma or Indwelling Catheter, Enteric Contrast as designated per enteric contrast guidelines albuterol HFA (PROVENTIL HFA, VENTOLIN HFA) 90 mcg/actuation inhaler Inhale 2 Puffs as instructed every 4 hours as needed. No current facility-administered medications for this visit. Social History Tobacco Use Smoking status: Former Packs/day: 1.00 Years: 45.00 Additional pack years: 0.00 Total pack years: 45.00 Types: Cigarettes Quit date: 05/27/2023 Years since quittin.6 Smokeless tobacco: Never Vaping Use Vaping Use: Never used Substance Use Topics Alcohol use: No Drug use: No Family History Problem Relation Age of Onset Cancer Mother leukemia Heart Father [place] other (respiratory failure) Sister Genitourinary () Paternal Grandfather Mother age 51 from leukemia. ROS: Constitutional: See above. HEENT: No recent change in voice, vision or hearing. Resp: No cough or wheezing. CVS: No exertional chest pain, PND or orthopnea. No extremity swelling/edema. No symptoms of claudication. No painful or tender varicose veins. GI: No dysphagia or odynophagia. No reflux. IBS--more constipation. : No dysuria or gross hematuria. No symptoms of bladder outlet obstruction. Endo: No hot flashes. No polyuria or polydipsia. No heat or cold intolerance. Musculoskeletal: No bone, back, joint and muscular pain. Derm: No current rash. No history of jaundice. No diffuse pruritis. Heme: No unusual bleeding and unexplained bruising. Psych: Anxious. PHYSICAL EXAM: Vitals: Blood pressure 110/78, pulse 77, temperature 36.9 C (98.5 F), temperature source Temporal, weight 78 kg (172 lb), SpO2 99%. Better-appearing and in no acute distress. EYES: Sclerae are anicteric bilaterally. LYMPHATIC: Resolution of previous adenopathy. RESPIRATORY: Inspiratory breath sounds are of diminished intensity in all mcelroy. CARDIOVASCULAR: Rhythm is regular. ABDOMEN: The abdomen is nondistended. Extremities: No swelling or edema. SKIN: No jaundice or rash. LABS: IMAGING: PET scan 06/05/2023: IMPRESSION: * Hypermetabolic right lower cervical, mediastinal, and right hilar lymphadenopathy, compatible with biopsy-proven malignancy. * No discrete hypermetabolic pulmonary nodule/mass. * No FDG avid neoplastic process in the abdomen/pelvis. No suspicious FDG avid osseous lesion. ASSESSMENT/PLAN: (C34.90) Small cell lung cancer (HCC) (primary encounter diagnosis) (F41.1, C80.1) Anxiety associated with cancer diagnosis (HCC) Assessment: -The patient is a 58-year-old female former, [id number]-[id number] smoker with diagnosis of COPD who underwent evaluation for low right-sided cervical/supraclavicular adenopathy and was found to have small cell carcinoma. Limited stage. -Tolerated chemotherapy overall fairly well but was complicated by LUCIANA, dehydration, nausea (responded best to olanzapine). Dexamethasone made her very tremulous. -Posttherapy CTs demonstrated IA. -Completed PCI. -Reviewed CT scans in detail. Further response in cervical/supraclavicular nodes. JENAE. -MRI brain unremarkable. -Unexplained episodic orthostasis that can occur at rest or with movement. In conjunction with random sharp headache type pains. No cognitive change. No neuromuscular weakness. Plan: -ZIO monitor to rule out intermittent atrial fibrillation or other arrhythmia. -Will discuss with radiation oncology. -Otherwise consider paraneoplastic panel if monitor negative for arrhythmia. -CTs in 3 months. Portions of this documentation were copied and pasted from previous office visit notes in order to provide a cohesive continuity of the history. The note has been reviewed and edited and updated as necessary. I spent a total of 20 minutes on the date of the service which included preparing to see the patient, [id number] patient care, completing clinical documentation, obtaining and/or reviewing separately obtained history, performing a medically appropriate examination, counseling and educating the pat ient/family/caregiver, ordering medications, tests, or procedures, communicating with other HCPs (not separately reported), and communicating results to the patient/family/caregiver. Raven East DO documented in this encounterSy[facility]07-[facility]-2024 Miscellaneous Notes* Telephone Encounter - Rena Espino - 01/01/2024 3:06 PM EDT Spoke with patient and moved appointments up as directed. Rena Espino * Telephone Encounter - Nelly Bernardo LPN - 01/01/2024 12:51 PM EDT Patient is aware of all information. PSS- please contact patient to move up CT scans and then schedule an OV with Dr. East in the next few weeks. Nelly Bernardo LPN * Telephone Encounter - Raven East DO - 01/01/2024 12:40 PM EDT Good news. MRI brain shows no evidence of cancer in or around the brain. Lab work all look good. MRI did show small amount of fluid in the mastoids bilaterally but she was not having pain localized to that area so doubt mastoiditis causing her symptoms. Per my office visit note, please move up CT sc ans and then office visit with me sometime in the next few weeks when able. Raven East DO documented in this encounterSy[facility]07-01-2024 Telephone encounter Note * Telephone Encounter - Rena Espino - 01/01/2024 3:06 PM EDT Spoke with patient and moved appointments up as directed. Rena Espino [facility]07-01-[facility] Telephone encounter Note* Telephone Encounter - Nelly Bernardo LPN - 01/01/2024 12:51 PM EDT Patient is aware of all information. PSS- please contact patient to move up CT scans and then schedule an OV with Dr. East in the next few weeks. Nelly Bernardo LPN [facility] Telephone encounter Note* Telephone Encounter - Raven East DO - 01/01/2024 12:40 PM EDT Good news. MRI brain shows no evidence of cancer in or around the brain. Lab work all look good. MRI did show small amount of fluid in the mastoids bilaterally but she was not having pain localized to that area so doubt mastoiditis causing her symptoms. Per my office visit note, please move up CT sc ans and then office visit with me sometime in the next few weeks when able. Raven East DO [facility] History of Present illness Narrative* Dafne Toro, RT(R) - 01/01/2024 11:45 AM EDT Radiology Service Progress Note DATE OF SERVICE: January 01, 2024 TIME: 11:56 AM PATIENT IDENTITY VERIFICATION COMPLETED USING TWO (2) STANDARD IDENTIFIERS: Name and Date of confirmed by patient verbally. FALL SCREENING: Has the patient had 2 falls in the last year or 1 fall with injury or currently using an Ambulatory Assistive Device (Walker, Cane, Wheelchair, Crutches, etc.)? No PATIENT GENDER DATA: Female. status: : No status: NO. PATIENT RELEVANT IMPLANT DATA REVIEWED: Yes PATIENT PRESENTS WITH AN IMPLANTABLE OR ATTACHED PRINCIPAL ACCOUNT CLERK: No ALLERGIES: Reviewed and unchanged CONTRAST ALLERGY: NO. EXAM: MRI - CONTRAST TYPE: GROUP II PERIPHERAL IV DATA: Ambulatory: A peripheral IV was started in the Left hand with a Angio cath: 24 gauge. RADIOLOGY DEPARTMENT: MR; Exam(s) Completed: Head: Routine Brain SIGNATURE: RT Taj(R) PATIENT NAME: Kellie Kang DATE: January 01, 2024 TIME: 11:56 AM documented in this encounterSycam[facility] Center06-26-2024 History of Present illness Narrative* Raven East, - 12/27/2023 2:14 PM EDT Oncologic problem(s): 1) Limited stage small cell lung cancer. HPI: The patient is a 58-year-old female former smoker who under presented for evaluation of right neck mass. Right lower neck mass for about a month. Saw Dr. Lara who ordered CT neck. She had a CT of the neck with contrast enhancement on 05/12/2023. This study revealed a nodule in the thyroid, right-sided gland measuring 9 x 6 mm. There is heterogeneity versus second nodule in theleft thyroid. Measurements were not rendered. There was right supraclavicular adenopathy, level 4B measuring 4.1 x 2.0 cm. There is mass effect and moderate narrowing of the right jugular vein and anadjacent enlarged lymph node measuring 1.3 x 1.6 cm. There is brachial enlarged lymph nodes measuring 1.3 x 1.3. Note was made of anterior cervical fusion hardware and previous discectomy changes at L5-6. Emphysematous changes were noted in the lung apices. Patient underwent FNA of the right-sided cervical adenopathy on 05/19/2023. Pathology: Positive for malignant cells. 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 Per initial consultation: had Covid. She got symptoms 05/24. Tested positive that day. Sore throat, headache, fever and malaise. Symptoms resolved except fatigue. No change in chronic cough from COPD. Rarely productive. Wheezes ( calls her wheezy). Mild JO. Hasn't had to stop any activity. 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 No issues with stairs, etc. Normal appetite. Neck pain. Pain in right chest (3-4 years; stress test okay). Used to come and go. Now seems to radiate down from the neck mass. COPE in right occipital area. Comes and go for about month. Quit smoking at time of diagnosis. Smoked a ppd for about 45 years. No alcohol. . Three older children. Previous therapy: 1) Concurrent chemotherapy and radiation with cisplatin etoposide. Completed chemotherapy 08/31/2023. Presents for ongoing oncologic management. Interim history: Episodes orthostasis. Can occur anytime even if watching TV. Ears don't fell full. Random, very brief pain in head in various places. No stumbling or falls. No palpitations or sensation of tachycardia. Hydrating well. Neuropathy of hands mildly improved. Toes same. Appetite decreased last week or so. No nausea. Bowels moving regularly. Has not resumed smoking. Not short of breath at rest or with mild to moderate exertion. No cough. 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 vitamin B complex (B COMPLEX ORAL) Take 1 tablet by mouth once daily. prochlorperazine (COMPAZINE) 10 mg tablet Take 1 tablet by mouth every 6 hours as needed. iv contrast (will be provided with radiology test) CT Chest W -Inject, intravenously, once for 1 dose.No IV access, insert saline lock prior to the beginning of sedation, infusion, injection of imaging exam. Discontinue saline lock post exam. If Pt. has a central line or IVAD, may access for administration according to line specific nursing protocol. Once exam is complete flush line and de-accessaccording to line specific nursing protocol in the CT contrast administration guidelines link. iv contrast (will be provided with radiology test) CT ABD/PEL -Inject, intravenously, once for 1 dose.No IV access, insert saline lock prior to the beginning of sedation, infusion, injection of imaging exam. Discontinue saline lock post exam. If Pt. has a central line or IVAD, may access for administration according to line specific nursing protocol. Once exam is complete flush line and de-accessaccording to line specific nursing protocol in the CT contrast administration guidelines link. enteric contrast (will be provided with radiology test) For CT ABD/PEL W IVCON Routine order Administer, As Directed One Time Only, via Oral, Rectal, both Oral and Rectal, Enteric Tube, Stoma or Indwelling Catheter, Enteric Contrast as designated per enteric contrast guidelines albuterol HFA (PROVENTIL HFA, VENTOLIN HFA) 90 mcg/actuation inhaler Inhale 2 Puffs as instructed every 4 hours as needed. No current facility-administered medications for this visit. Social History Tobacco Use Smoking status: Former Packs/day: 1.00 Years: 45.00 Additional pack years: 0.00 Total pack years: 45.00 Types: Cigarettes Quit date: 05/27/2023 Years since quittin.5 Smokeless tobacco: Never Vaping Use Vaping Use: Never used Substance Use Topics Alcohol use: No Drug use: No Family History Problem Relation Age of Onset Cancer Mother leukemia Heart Father [place] other (respiratory failure) Sister Genitourinary () Paternal Grandfather Mother age 51 from leukemia. ROS: Constitutional: See above. HEENT: No recent change in voice, vision or hearing. Resp: No cough or wheezing. CVS: No exertional chest pain, PND or orthopnea. No extremity swelling/edema. No symptoms of claudication. No painful or tender varicose veins. GI: No dysphagia or odynophagia. No reflux. IBS--more constipation. : No dysuria or gross hematuria. No symptoms of bladder outlet obstruction. Endo: No hot flashes. No polyuria or polydipsia. No heat or cold intolerance. Musculoskeletal: No bone, back, joint and muscular pain. Derm: No current rash. No history of jaundice. No diffuse pruritis. Heme: No unusual bleeding and unexplained bruising. Psych: Anxious. PHYSICAL EXAM: Vitals: Blood pressure 107/70, pulse 88, temperature 37.1 C (98.7 F), temperature source Temporal, weight 78 kg (172 lb), SpO2 98%. Better-appearing and in no acute distress. EYES: Sclerae are anicteric bilaterally. LYMPHATIC: Resolution of previous adenopathy. RESPIRATORY: Inspiratory breath sounds are of diminished intensity in all mcelroy. CARDIOVASCULAR: Rhythm is regular. ABDOMEN: The abdomen is nondistended. Extremities: No swelling or edema. SKIN: No jaundice or rash. NEUROLOGIC: veneer puller II-XII are grossly intact. No focal motor weakness. cerebellar exam okay, but orthostasis worse with Romberg's test. LABS: IMAGING: PET scan 06/05/2023: IMPRESSION: * Hypermetabolic right lower cervical, mediastinal, and right hilar lymphadenopathy, compatible with biopsy-proven malignancy. * No discrete hypermetabolic pulmonary nodule/mass. * No FDG avid neoplastic process in the abdomen/pelvis. No suspicious FDG avid osseous lesion. ASSESSMENT/PLAN: (C34.90) Small cell lung cancer (HCC) (primary encounter diagnosis) (F41.1, C80.1) Anxiety associated with cancer diagnosis (HCC) Assessment: -The patient is a 58-year-old female former, [id number] smoker with diagnosis of COPD who underwent evaluation for low right-sided cervical/supraclavicular adenopathy and was found to have small cell carcinoma. Limited stage. -Tolerated chemotherapy overall fairly well but was complicated by LUCIANA, dehydration, nausea (responded best to olanzapine). Dexamethasone made her very tremulous. -Posttherapy CTs demonstrated IA. -Completed PCI. -New symptoms of orthostasis like dizziness. -Stopping Cymbalta?? Plan: -EKG today. -MRI brain. -Check labs. -Move up CTs if above okay. Portions of this documentation were copied and pasted from previous office visit notes in order to provide a cohesive continuity of the history. The note has been reviewed and edited and updated as necessary. I spent a total of 20 minutes on the date of the service which included preparing to see the patient, [id number] patient care, completing clinical documentation, obtaining and/or reviewing separately obtained history, performing a medically appropriate examination, ordering medications, tests, or procedures, communicating with other HCPs (not separately reported), and communicating results to the patient/family/caregiver. Raven East DO documented [facility]06[facility] Telephone encounter Note * Telephone Encounter - Rena Espino - 12/27/2023 8:41 AM EDT Scheduled as directed. Rena Espino [facility]06-26-[facility] Miscellaneous Notes* Telephone Encounter - Rena Espino - 12/27/2023 8:41 AM EDT Scheduled as directed. Rena Espino * Telephone Encounter - Belgica Rao RN - 12/26/2023 4:58 PM EDT Spoke to Dr. East, please add patient on at 2 pm tomorrow. She is aware that we are double bookingthis appointment and will be a potential wait. Thank you. Belgica Rao RN * Telephone Encounter - Belgica Rao RN - 12/26/2023 11:59 AM EDT Care Coordination Triage Note [facility] Situation: Patient reports Other dizziness Background: SCLC, completed 4 cycles of cisplatin/etoposide at the end of Aug 2023. Assessment: Concern / Issue: lightheaded/dizziness When did you first notice the concern / issue? 5 days ago, started suddenly, occurs with activity and at rest. How do you describe your symptoms? Occurs several times a day, lasts for 20-30 seconds. It just goes away. Have you had this issue/symptom before? no Headaches: pressure headaches in the back left of my head that occur several times a day, lastsa couple seconds and then resolves. Visual changes: no Nausea: no Sinus/ear pain: no Fever/chills: no Diarrhea: no Has issues with gait/ambulating when she is lightheaded Heart palpitations: no Chest pain/pressure: no Hydration: stopped drinking propel and is now drinking 32 ounces water. Appetite: decreased 5 days ago when the dizziness started. Breakfast: oats/cereal/omelet Lunch: macaroni salad or sandwich Dinner: grilled cheese sandwich & chips, shepard/beef burrigoldys Has not been spending a lot of time outdoors d/t heat. Dizziness has improved a little bit since she stopped drinking the propel. Denies sick contacts. Denies new medications/supplements- only taking vitamin B complex. Weakness: denies one sided or new weakness Patient has c/o dizziness/lightheadedness that started 5 days ago. Patient stated the onset was abrupt and has had several episodes a day with/without activity that last 20-30 seconds and will resolve without intervention. Patient has also noticed a pressure headache in the back left of my headthat occurs several times a day and then resolves. Patient has issues with her gait/ambulating during the dizzy episodes. Denies feeling like she or the room is spinning. Patient stated she was drinking 4 propel daily and stopped drinking 4 days ago. Symptoms have improved a little since switching to water. Drinking 32 ounces of water daily, appetite is fair, BP has been normal, she is not a diabetic, denies fever/chills, recent illness, sinus/ear pain or pressure, N/V/D, urinary changes, or visual changes. Patient is only taking B complex, denies new medications/supplements. Last chemo wasat the end of Aug. Recommendations: Per RNCC, will discuss with Dr. East and call back with further instructions. Advised patient to increase water intake to 64 ounces daily. Belgica Rao RN December 26, 2023 11:59 AM * Telephone Encounter - Russell Espinoie - 12/26/2023 11:30 AM EDT Patient called in c/o dizziness for the last 4-5 days and constant. I could be sitting on the couch and I get dizzy. Patient states she was drinking Propel constantly and is wondering if there might be an electrolyte imbalance causing problems. She stopped drinking the Propel the last 4 days. Her neuropathy has gotten better since stopping drinking Propel but the dizziness is still going on. Appetite is not like it was - nothing looks good. Please advise. Rena Espino documented in this encounterSy[facility]06-[facility] Telephone encounter Note * Telephone Encounter - Belgica Rao RN - 12/26/2023 4:58 PM EDT Spoke to Dr. East, please add patient on at 2 pm tomorrow. She is aware that we are double bookingthis appointment and will be a potential wait. Thank you. Belgica Rao RN [facility]06-25-[facility] Telephone encounter Note* Telephone Encounter - Belgica Rao RN - 12/26/2023 11:59 AM EDT Care Coordination Triage Note [facility] Situation: Patient reports Other dizziness Background: SCLC, completed 4 cycles of cisplatin/etoposide at the end of Aug 2023. Assessment: Concern / Issue: lightheaded/dizziness When did you first notice the concern / issue? 5 days ago, started suddenly, occurs with activity and at rest. How do you describe your symptoms? Occurs several times a day, lasts for 20-30 seconds. It just goes away. Have you had this issue/symptom before? no Headaches: pressure headaches in the back left of my head that occur several times a day, lastsa couple seconds and then resolves. Visual changes: no Nausea: no Sinus/ear pain: no Fever/chills: no Diarrhea: no Has issues with gait/ambulating when she is lightheaded Heart palpitations: no Chest pain/pressure: no Hydration: stopped drinking propel and is now drinking 32 ounces water. Appetite: decreased 5 days ago when the dizziness started. Breakfast: oats/cereal/omelet Lunch: macaroni salad or sandwich Dinner: grilled cheese sandwich & chips, shepard/beef burritos Has not been spending a lot of time outdoors d/t heat. Dizziness has improved a little bit since she stopped drinking the propel. Denies sick contacts. Denies new medications/supplements- only taking vitamin B complex. Weakness: denies one sided or new weakness Patient has c/o dizziness/lightheadedness that started 5 days ago. Patient stated the onset was abrupt and has had several episodes a day with/without activity that last 20-30 seconds and will resolve without intervention. Patient has also noticed a pressure headache in the back left of my headthat occurs several times a day and then resolves. Patient has issues with her gait/ambulating during the dizzy episodes. Denies feeling like she or the room is spinning. Patient stated she was drinking 4 propel daily and stopped drinking 4 days ago. Symptoms have improved a little since switching to water. Drinking 32 ounces of water daily, appetite is fair, BP has been normal, she is not a diabetic, denies fever/chills, recent illness, sinus/ear pain or pressure, N/V/D, urinary changes, or visual changes. Patient is only taking B complex, denies new medications/supplements. Last chemo wasat the end of Aug. Recommendations: Per RNCC, will discuss with Dr. East and call back with further instructions. Advised patient to increase water intake to 64 ounces daily. Belgica Rao RN December 26, 2023 11:59 AM T [facility]06-[facility] Telephone encounter Note* Telephone Encounter - Rena Espino - 12/26/2023 11:30 AM EDT Patient called in c/o dizziness for the last 4-5 days and constant. I could be sitting on the couch and I get dizzy. Patient states she was drinking Propel constantly and is wondering if there might be an electrolyte imbalance causing problems. She stopped drinking the Propel the last 4 days. Her neuropathy has gotten better since stopping drinking Propel but the dizziness is still going on. Appetite is not like it was - nothing looks good. Please advise. Rena Espino [facility]06-13-2024 Telephone encounter Note* Telephone Encounter - Shabana Riddle LPN - 12/14/2023 3:06 PM EDT Spoke with pt. Informed Dr. East personally reviewed the CT images done in the ED with those that were done here most recently. The changes they saw on the right upper lung were from radiation. I donot think she has pneumonia. Her complaint was pain in the lower right anterior chest when taking adeep breath. If she had no cough, fever or shortness of breath , which she states she does not have, then Dr. East does not think it is necessary to finish the antibiotics. If still having the pain,then may be worth trying some Advil 400 mg every 8 hours for about 2 to 3 days. Pt. Voiced understanding Shabana Riddle LPN [facility]06-13-2024 Miscellaneous Notes* Telephone Encounter - Shabana Riddle LPN - 12/14/2023 3:06 PM EDT Spoke with pt. Informed Dr. East personally reviewed the CT images done in the ED with those that were done here most recently. The changes they saw on the right upper lung were from radiation. I donot think she has pneumonia. Her complaint was pain in the lower right anterior chest when taking adeep breath. If she had no cough, fever or shortness of breath , which she states she does not have, then Dr. East does not think it is necessary to finish the antibiotics. If still having the pain,then may be worth trying some Advil 400 mg every 8 hours for about 2 to 3 days. Pt. Voiced understanding Shabana Riddle LPN * Telephone Encounter - Raven East DO - 12/14/2023 2:25 PM EDT I personally reviewed the CT images done in the ED with those that were done here most recently. The changes they saw on the right upper lung were from radiation. I do not think she has pneumonia. Her complaint was pain in the lower right anterior chest when taking a deep breath. If she had no cough, fever or shortness of breath then I do not think it is necessary to finish the antibiotics. If still having the pain, then may be worth trying some Advil 400 mg every 8 hours for about 2 to 3 days. Raven East DO * Telephone Encounter - Abena Granados RN - 12/14/2023 9:08 AM EDT EMERGENCY ROOM CALL BACK Today's date: December 14, 2023 Patient identified by name and date of . YES Primary Cancer Diagnosis: SCLC Reason for Emergency Room Visit: right rib pain with deep breath Time of day presented to Emergency Room 1700 If Mon-Monday during business hours: Did you contact your Paper Ruler/Provider? Yes, told to present to emergency department Patient with any new symptom issues: No Psychosocial Risk Factors: None Copied from discharge summary: CTA of the chest was obtained. There is no pulmonary embolism or aortic dissection. There is a questionable right upper lobe infiltrate or edema. This was interpreted by the radiologist and was also independently reviewed by myself. Treatment and Re-Evaluation Patient was advised of her findings. Because of the CTA findings of a questionable infiltrate, patient was given a dose of Zithromax here. Patient was given a prescription for Zithromax. Patient was instructed to take Tylenol or ibuprofen as needed for pain. Patient was instructed to follow-up withher primary care physician in 5 to 7 days. Patient understood and was agreeable with the plan. All questions were answered. FOLLOW UP Patient reminded of her follow-up appointment with [facility] provider, Dr. East on 02/26/24: Yes Next Paper Ruler outreach with patient scheduled? as needed if no improvement. Patient instructed to follow up with PCP 5-7 days. Discussed She denies any new/worsening symptoms. She has not called her PCP yet to make a follow upappointment. PATIENT EDUCATION/REINFORCEMENT Patient verbalizes understanding of when to seek Medical Attention? YES Patient verbalizes understanding of after hours and weekend phone number? YES Patient verbalizes understanding of next outreach appointment? YES Abena Granados RN documented in this encounterSy[facility]06-[facility]24 Telephone encounter Note * Telephone Encounter - Raven East DO - 12/14/2023 2:25 PM EDT I personally reviewed the CT images done in the ED with those that were done here most recently. The changes they saw on the right upper lung were from radiation. I do not think she has pneumonia. Her complaint was pain in the lower right anterior chest when taking a deep breath. If she had no cough, fever or shortness of breath then I do not think it is necessary to finish the antibiotics. If still having the pain, then may be worth trying some Advil 400 mg every 8 hours for about 2 to 3 days. Raven East DO [facility]06-13-[facility] Telephone encounter Note* Telephone Encounter - Abena Granados RN - 12/14/2023 9:08 AM EDT EMERGENCY ROOM CALL BACK Today's date: December 14, 2023 Patient identified by name and date of . YES Primary Cancer Diagnosis: SCLC Reason for Emergency Room Visit: right rib pain with deep breath Time of day presented to Emergency Room 1700 If Mon-Monday during business hours: Did you contact your Paper Ruler/Provider? Yes, told to present to emergency department Patient with any new symptom issues: No Psychosocial Risk Factors: None Copied from discharge summary: CTA of the chest was obtained. There is no pulmonary embolism or aortic dissection. There is a questionable right upper lobe infiltrate or edema. This was interpreted by the radiologist and was also independently reviewed by myself. Treatment and Re-Evaluation Patient was advised of her findings. Because of the CTA findings of a questionable infiltrate, patient was given a dose of Zithromax here. Patient was given a prescription for Zithromax. Patient was instructed to take Tylenol or ibuprofen as needed for pain. Patient was instructed to follow-up withher primary care physician in 5 to 7 days. Patient understood and was agreeable with the plan. All questions were answered. FOLLOW UP Patient reminded of her follow-up appointment with [facility] provider, Dr. East on 02/26/24: Yes Next Paper Ruler outreach with patient scheduled? as needed if no improvement. Patient instructed to follow up with PCP 5-7 days. Discussed She denies any new/worsening symptoms. She has not called her PCP yet to make a follow upappointment. PATIENT EDUCATION/REINFORCEMENT Patient verbalizes understanding of when to seek Medical Attention? YES Patient verbalizes understanding of after hours and weekend phone number? YES Patient verbalizes understanding of next outreach appointment? YES Abena Granados RN [facility] Work Phone: [phone]) 911-615906-12-2024 Telephone encounter Note* Telephone Encounter - Linda Helms LPN - 12/13/2023 4:29 PM EDT Pt notified and voices understanding. Linda Helms LPN [facility]06-12-2024 Miscellaneous Notes* Telephone Encounter - Linda Helms LPN - 12/13/2023 4:29 PM EDT Pt notified and voices understanding. Linda Helms LPN * Telephone Encounter - Raven East DO - 12/13/2023 4:05 PM EDT ED for rule out PE please. Raven East DO * Telephone Encounter - Abena Granados RN - 12/13/2023 3:07 PM EDT Care Coordination Triage Note [facility] Situation: Patient reports Other Pain with deep breaths Background: Disease, current pertinent medications/treatments Lung cancer, completed treatment 08/31/23 Assessment: Patient has pain in under and behind the right lower rib cage, in front, not side or back area. Pain only when she takes a deep breath, not with any movement or different positions. Started 2-3 days ago. Rates 2/10 scale. Unable to describe the pain but denies that it is stabbing or throbbing. Denies pain if she palpates the area. Denies any injury to that area. Denies any increase in shortness of breath over baseline, has a dry cough but not every day. Denies any fever or other issues or concerns. Recommendations: Per RNCC, patient directed to: Manage at home. Instructions provided. Will update Dr. East and call patient back with further instructions. Abena Granados RN December 13, 2023 3:07 PM * Telephone Encounter - Juliocesar Apple - 12/13/2023 2:01 PM EDT Patient states she has had pain under right rib cage for 2-3 days. Asking if she should be seen. Please advise. documented in this encounterSy[facility]06-[facility]-2024 Telephone encounter Note * Telephone Encounter - Raven East DO - 12/13/2023 4:05 PM EDT ED for rule out PE please. Raven East DO [facility]06-12-[facility] Telephone encounter Note* Telephone Encounter - Abena Granados RN - 12/13/2023 3:07 PM EDT Care Coordination Triage Note [facility] Situation: Patient reports Other Pain with deep breaths Background: Disease, current pertinent medications/treatments Lung cancer, completed treatment 08/31/23 Assessment: Patient has pain in under and behind the right lower rib cage, in front, not side or back area. Pain only when she takes a deep breath, not with any movement or different positions. Started 2-3 days ago. Rates 2/10 scale. Unable to describe the pain but denies that it is stabbing or throbbing. Denies pain if she palpates the area. Denies any injury to that area. Denies any increase in shortness of breath over baseline, has a dry cough but not every day. Denies any fever or other issues or concerns. Recommendations: Per RNCC, patient directed to: Manage at home. Instructions provided. Will update Dr. East and call patient back with further instructions. Abena Granados RN December 13, 2023 3:07 PM [facility] Work Phone: 1(139) 975-125606-12-2024 Telephone encounter Note* Telephone Encounter - Juliocesar Apple - 12/13/2023 2:01 PM EDT Patient states she has had pain under right rib cage for 2-3 days. Asking if she should be seen. Please advise. [facility] Work Phone: 1(897) 829-598405-23-2024 History of Present illness Narrative* Xiao Perez APRN.[facility] - 11/23/2023 10:43 AM EDT Chief Complaint Patient presents with: Established Patient HPI: Kellie Kang is a 58 year old female who presents here today for follow up lung cancer. Per Dr. East's previous note: H/o right neck mass. Right lower neck mass for about a month. Saw Dr. Lara who ordered CT neck. She had a CT of the neck with contrast enhancement on 05/12/2023. This study revealed a nodule in the thyroid, right-sided gland measuring 9 x 6 mm. There is heterogeneity versus second nodule in theleft thyroid. Measurements were not rendered. There was right supraclavicular adenopathy, level 4B measuring 4.1 x 2.0 cm. There is mass effect and moderate narrowing of the right jugular vein and anadjacent enlarged lymph node measuring 1.3 x 1.6 cm. There is brachial enlarged lymph nodes measuring 1.3 x 1.3. Note was made of anterior cervical fusion hardware and previous discectomy changes at L5-6. Emphysematous changes were noted in the lung apices. Patient underwent FNA of the right-sided cervical adenopathy on 05/19/2023. Pathology: Positive for malignant cells. 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 Per initial consultation: had Covid. She got symptoms 05/24. Tested positive that day. Sore throat, headache, fever and malaise. Symptoms resolved except fatigue. No change in chronic cough from COPD. Rarely productive. Wheezes ( calls her wheezy). Mild JO. Hasn't had to stop any activity. 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 No issues with stairs, etc. Normal appetite. Neck pain. Pain in right chest (3-4 years; stress test okay). Used to come and go. Now seems to radiate down from the neck mass. COPE in right occipital area. Comes and go for about month. Quit smoking at time of diagnosis. Smoked a ppd for about 45 years. No alcohol. . Three older children. Previous therapy: 1) Concurrent chemotherapy and radiation with cisplatin etoposide. Completed chemotherapy 08/31/2023. No new concerns today. Pt. here today with family member. Completed whole brain XRT 10/25/23. Appetite:Good. Energy level:Fair. Denies fevers. Resp:denies cough or sob, jo with stairs Cardiac:denies chest pain/palpitations GI:denies abd pain, n/v, moving bowels regularly :denies dysuria/hematuria Extrem:denies pain Neuro:+neuropathy-improving to fingers/toes Skin:denies rashes Heme:denies bleeding The ROS is otherwise negative. Past medical history, appointments, medications, allergies reviewed. No changes. EXAM: BP 130/97 Pulse 87 Temp 37.5 C (99.5 F) (Temporal) Wt 80.3 kg (177 lb) SpO2 95% BMI 30.38kg/m APPEARANCE Well appearing, alert, in no acute distress, well-hydrated, well nourished. HEART RRR with normal S1 and S2, no murmurs LUNG clear to auscultation LYMPH NODES No cervical lymphadenopathy, No supraclavicular lymphadenopathy, and No axillary lymphadenopathy. ABDOMEN bowel sounds normoactive, soft, non-tender EXTREMITIES No edema NEURO Awake, alert and oriented x 3, Normal gait, and No involuntary motions. SKIN Skin color, texture, turgor normal, no suspicious rashes or lesions LABS: Pending RADIOLOGY: CT chest 11/22/23: IMPRESSION: 1. Continued interval decrease in size of mild mediastinal and right supraclavicular lymphadenopathy. No new or enlarging intrathoracic lymphadenopathy. 2. Mild emphysema. 3.Interval development of groundglass and mild bandlike opacities in the right paramediastinal/right perihilar regions. Findings may be related to postradiation treatment-related changes and/or infectious/inflammatory process for which clinical correlation is requested. Attention on follow-up is advised. CT abd/pelvis 11/22/23: IMPRESSION: 1. No new or enlarging mass or lymphadenopathy in the abdomen or pelvis. 2. Stable findings include: Few stable subcentimeter hypodense too small to characterize hepatic lesions, stable portacaval lymph node, stable left renal scarring and left renal cyst. CT neck 11/22/23: IMPRESSION: Continued decrease in volume of bouchra metastatic disease involving the medial right supraclavicular region/right level 4 internal jugular chain with no new or enlarging bouchra metastases identified in the neck. ASSESSMENT/PLAN: 1. Small cell lung cancer (HCC) - ICD9: 162.9, ICD10: C34.90 (primary diagnosis) 2. 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 Per Dr. East's previous note: Assessment: -The patient is a 58-year-old female former, 54-alim-funj smoker with diagnosis of COPD who underwent evaluation for low right-sided cervical/supraclavicular adenopathy and was found to have small cell carcinoma. Limited stage. -Tolerated chemotherapy overall fairly well but was complicated by LUCIANA, dehydration, nausea (responded best to olanzapine). Dexamethasone made her very tremulous. -Posttherapy CTs demonstrated very good objective response-CT images with her and her . Verygood objective response. IA. -Again discussed she is at risk for recurrence. -Completed PCI. -Plan to monitor every 3 months for first 2 years at a minimum. Plan: -Rx Cymbalta 60 mg daily. -Wear wrist cock up splints both hands to bed every night. -If no improvement in CTS symptoms/neuropathy in a month or 2 then referral to orthopedics. -Otherwise lab work followed by CT of neck, chest abdomen pelvis then office visit in about 8 weeks. -Discussed the importance of not resuming smoking. She has been doing a great job of abstaining andknows how to distract herself should she have the urge to smoke. - No new findings on exam. - Reviewed CBC/CT's with pt. and family member. - CMP/Mag pending. - Pt. self discontinued her medications. - CT chest/abd/pelvis/neck in 3 months. - Follow up with Dr. East after above with CBC/CMP. - Pt. aware to call office with any questions/concerns. The patient indicates understanding of these issues and agrees with the plan. All documentation from previous visit of 11/01/23-Dr. East was copied and pasted, documentation has been reviewed and edited as necessary for today's visit. Xiao Perez APRN.[facility] documented in this encounterSy[facility] Center05-22-2024 History of Present illness Narrative* Caitlin Bravo MD - 11/22/2023 1:18 PM EDT AMBULATORY TELEPHONE VISIT Kellie Kang has consented to this telephone encounter. Persons Present: patient Chief Complaint/Reason: Four week follow-up after radiation treatment. HPI: Limited stage small cell lung cancer s/p chemoradiation treatment with radiation treatment to the mediastinum/R SC finished on 07/17/23 and 4 cycles of Cisplatin/Etoposide finished on 08/30/23 s/pPCI finished on 10/25/23. She is doing well without any specific new complaints. She had a few episodes of headaches after she finished PCI and they were relieved with Tylenol. No recent episodes of headaches or nausea. She denies any skin erythema in the scalp. She reports that new hair has started to grow. She has fatiguegradually improving. Data Reviewed: None. Assessment: Clinically stable. Plan: She is regularly followed with Dr. East and I will see her as needed. Total Time Spent: 5 minutes Caitlin Bravo MD documented in this encounterSycamore [facility] Center05-22-2024 History of Present illness Narrative* Yasmin Hankins RT(R) - 11/22/2023 11:00 AM EDT Radiology Service Progress Note DATE OF SERVICE: November 22, 2023 TIME: 3:00 PM PATIENT IDENTITY VERIFICATION COMPLETED USING TWO (2) STANDARD IDENTIFIERS: Name and Date of confirmed by patient verbally. FALL SCREENING: Has the patient had 2 falls in the last year or 1 fall with injury or currently using an Ambulatory Assistive Device (Walker, Cane, Wheelchair, Crutches, etc.)? No PATIENT GENDER DATA: Female. status: : No status: NO. PATIENT RELEVANT IMPLANT DATA REVIEWED: Yes PATIENT PRESENTS WITH AN IMPLANTABLE OR ATTACHED PRINCIPAL ACCOUNT CLERK: No ALLERGIES: Reviewed and unchanged CONTRAST ALLERGY: NO. EXAM: CT -CONTRAST INDUCED NEPHROPATHY RISK FACTORS: Not applicable CREATININE: Creatinine Date Value Ref Range Status 11/01/2023 1.07 (H) 0.58 - 0.96 mg/dL Final 09/20/2023 1.29 (H) 0.58 - 0.96 mg/dL Final 09/14/2023 1.12 (H) 0.58 - 0.96 mg/dL Final Estimated Glomerular Filtration Rate Date Value Ref Range Status 11/01/2023 60 >=60 mL/min/1.73m Final Comment: Estimated Glomerular Filtration Rate (eGFR) is calculated using the 2020 CKD-EPI creatinine equation. This equation utilizes serum creatinine, sex, and age as parameters. The creatinine assay has traceable calibration to isotope dilution- mass spectrometry. Refer to KDIGO guidelines for clinical interpretation. In patients with unstable renal function, e.g. those with acute kidney injury, the eGFRmay not accurately reflect actual GFR. P.O.C.T. RESULTS: POC done: Yes, See Lab Tab November 22, 2023 TREATMENT: N/A PERIPHERAL IV DATA: Ambulatory: A peripheral IV was started in the Left hand with a Angio cath: 22 gauge. RADIOLOGY DEPARTMENT: CT; Exam(s) Completed: Chest Abdomen Pelvis and Neck SIGNATURE: RT Tomeka(R) PATIENT NAME: Kellie Dick Girjeevan DATE: November 22, 2023 TIME: 3:00 PM documented in this encounterSycamore Medical Center05-01-2024 History of Present illness Narrative* Raven East, DO - 11/01/2023 11:43 AM EDT Oncologic problem(s): 1) Limited stage small cell lung cancer. HPI: The patient is a 58-year-old female former smoker who under presented for evaluation of right neck mass. Right lower neck mass for about a month. Saw Dr. Lara who ordered CT neck. She had a CT of the neck with contrast enhancement on 05/12/2023. This study revealed a nodule in the thyroid, right-sided gland measuring 9 x 6 mm. There is heterogeneity versus second nodule in theleft thyroid. Measurements were not rendered. There was right supraclavicular adenopathy, level 4B measuring 4.1 x 2.0 cm. There is mass effect and moderate narrowing of the right jugular vein and anadjacent enlarged lymph node measuring 1.3 x 1.6 cm. There is brachial enlarged lymph nodes measuring 1.3 x 1.3. Note was made of anterior cervical fusion hardware and previous discectomy changes at L5-6. Emphysematous changes were noted in the lung apices. Patient underwent FNA of the right-sided cervical adenopathy on 05/19/2023. Pathology: Positive for malignant cells. 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 Per initial consultation: had Covid. She got symptoms 05/24. Tested positive that day. Sore throat, headache, fever and malaise. Symptoms resolved except fatigue. No change in chronic cough from COPD. Rarely productive. Wheezes ( calls her wheezy). Mild JO. Hasn't had to stop any activity. 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 No issues with stairs, etc. Normal appetite. Neck pain. Pain in right chest (3-4 years; stress test okay). Used to come and go. Now seems to radiate down from the neck mass. COPE in right occipital area. Comes and go for about month. Quit smoking at time of diagnosis. Smoked a ppd for about 45 years. No alcohol. . Three older children. Previous therapy: 1) Concurrent chemotherapy and radiation with cisplatin etoposide. Completed chemotherapy 08/31/2023. Presents for ongoing oncologic management. Interim history: Worsening neuropathy in both hands. Numb and cnwi-ygq-bhutoqd extending back to about mid palm. Hashistory of CTS. Previously treated with physical therapy but has not had surgical intervention. Has been fatigued and having some mild cognitive issues recently. Has not resumed smoking. Not short of breath at rest or with mild to moderate exertion. Appetite normal. 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 OLANZapine (ZYPREXA) 5 mg tablet Take 1 tablet by mouth daily at bedtime. beginning the evening of first day of chemotherapy each cycle. vitamin B complex (B COMPLEX ORAL) Take 1 tablet by mouth once daily. sucralfate (CARAFATE) 100 mg/mL suspension Take 10 mL by mouth four times daily. prochlorperazine (COMPAZINE) 10 mg tablet Take 1 tablet by mouth every 6 hours as needed. ondansetron (ZOFRAN) 8 mg tablet Take 1 tablet by mouth every 8 hours as needed for nausea/vomiting. iv contrast (will be provided with radiology test) CT ABD/PEL -Inject, intravenously, once for 1 dose.No IV access, insert saline lock prior to the beginning of sedation, infusion, injection of imaging exam. Discontinue saline lock post exam. If Pt. has a central line or IVAD, may access for administration according to line specific nursing protocol. Once exam is complete flush line and de-accessaccording to line specific nursing protocol in the CT contrast administration guidelines link. enteric contrast (will be provided with radiology test) For CT ABD/PEL W IVCON Routine order Administer, As Directed One Time Only, via Oral, Rectal, both Oral and Rectal, Enteric Tube, Stoma or Indwelling Catheter, Enteric Contrast as designated per enteric contrast guidelines iv contrast (will be provided with radiology test) CT Chest W -Inject, intravenously, once for 1 dose.No IV access, insert saline lock prior to the beginning of sedation, infusion, injection of imaging exam. Discontinue saline lock post exam. If Pt. has a central line or IVAD, may access for administration according to line specific nursing protocol. Once exam is complete flush line and de-accessaccording to line specific nursing protocol in the CT contrast administration guidelines link. diphenhydrAMINE (BENADRYL ALLERGY) 12.5 mg/5 mL liquid Take 50 mg by mouth two times a day. twice daily (Patient not taking: Reported on 07/06/2023) vsdqqgtwcqJOHRE-dlvnqw-fcvfobuxv (BMX 1:1:1) 1:1:1 liqd Take 10 mL by mouth every 4 hours as needed. (Patient not taking: Reported on 07/06/2023) dexAMETHasone (DECADRON) 4 mg tablet Take 1 tablet by mouth two times a day with meals. (breakfast and lunch) for 3 days beginning the day after chemotherapy treatment. albuterol HFA (PROVENTIL HFA, VENTOLIN HFA) 90 mcg/actuation inhaler Inhale 2 Puffs as instructed every 4 hours as needed. No current facility-administered medications for this visit. Social History Tobacco Use Smoking status: Former Packs/day: 1.00 Years: 45.00 Additional pack years: 0.00 Total pack years: 45.00 Types: Cigarettes Quit date: 05/27/2023 Years since quittin.4 Smokeless tobacco: Never Vaping Use Vaping Use: Never used Substance Use Topics Alcohol use: No Drug use: No Family History Problem Relation Age of Onset Cancer Mother leukemia Heart Father [place] other (respiratory failure) Sister Genitourinary () Paternal Grandfather Mother age 51 from leukemia. ROS: Constitutional: See above. Neuro: No symptoms of sensory neuropathy. HEENT: No recent change in voice, vision or hearing. Resp: No cough or wheezing. CVS: No exertional chest pain, PND or orthopnea. No extremity swelling/edema. No symptoms of claudication. No painful or tender varicose veins. GI: No dysphagia or odynophagia. No reflux. IBS--more constipation. : No dysuria or gross hematuria. No symptoms of bladder outlet obstruction. Endo: No hot flashes. No polyuria or polydipsia. No heat or cold intolerance. Musculoskeletal: No bone, back, joint and muscular pain. Derm: No current rash. No history of jaundice. No diffuse pruritis. Heme: No unusual bleeding and unexplained bruising. Psych: Anxious. PHYSICAL EXAM: Vitals: Blood pressure 122/78, pulse 82, temperature 37.2 C (99 F), temperature source Temporal, weight 80.3 kg (177 lb), SpO2 95%. Better-appearing and in no acute distress. EYES: Sclerae are anicteric bilaterally. LYMPHATIC: Resolution of previous adenopathy. RESPIRATORY: Inspiratory breath sounds are of diminished intensity in all mcelroy. Scattered wheezesthroughout. CARDIOVASCULAR: Rhythm is regular. ABDOMEN: The abdomen is nondistended. Extremities: No swelling or edema. SKIN: No jaundice or rash. NEUROLOGIC: veneer puller II-XII are grossly intact. No focal motor weakness. LABS: Latest Ref [facility] 11/01/2023 WBC 3.70 - 11.00 k/uL 4.08 RBC 3.90 - 5.20 m/uL 3.21 (L) Hemoglobin 11.5 - 15.5 g/dL 10.5 (L) Hematocrit 36.0 - 46.0 % 31.8 (L) MCV 80.0 - 100.0 fL 99.1 MCH 26.0 - 34.0 pg 32.7 MCHC 30.5 - 36.0 g/dL 33.0 RDW-CV 11.5 - 15.0 % 11.3 (L) Platelet Count 150 - 400 k/uL 184 MPV 9.0 - 12.7 fL 9.2 Neut% % 66.0 Abs Neut (ANC) 1.45 - 7.50 k/uL 2.69 Lymph% % 18.6 Abs Lymph 1.00 - 4.00 k/uL 0.76 (L) Mcnairy% % 9.1 Abs Mcnairy <0.87 k/uL 0.37 Eosin% % 4.9 Abs Eosin <0.46 k/uL 0.20 Baso% % 1.2 Abs Baso <0.11 k/uL 0.05 Immature Gran % % 0.2 IMMATURE GRANS (ABS) <0.10 k/uL <0.03 NRBC /100 WBC 0.0 Absolute nRBC <0.01 k/uL <0.01 DTYPE Auto Protein, Total 6.3 - 8.0 g/dL 7.1 Albumin 3.9 - 4.9 g/dL 4.3 Calcium 8.5 - 10.2 mg/dL 9.8 Bilirubin, Total 0.2 - 1.3 mg/dL <0.2 (L) Alkaline Phosphatase 34 - 123 U/L 58 AST 13 - 35 U/L 19 ALT 7 - 38 U/L 20 Glucose 74 - 99 mg/dL 126 (H) BUN 7 - 21 mg/dL 22 (H) Creatinine 0.58 - 0.96 mg/dL 1.07 (H) Sodium 136 - 144 mmol/L 139 Potassium 3.7 - 5.1 mmol/L 4.1 Chloride 97 - 105 mmol/L 109 (H) CO2 22 - 30 mmol/L 21 (L) Anion Gap 9 - 18 mmol/L 9 eGFR >=60 mL/min/1.73m 60 Magnesium 1.7 - 2.3 mg/dL 2.3 IMAGING: PET scan 06/05/2023: IMPRESSION: * Hypermetabolic right lower cervical, mediastinal, and right hilar lymphadenopathy, compatible with biopsy-proven malignancy. * No discrete hypermetabolic pulmonary nodule/mass. * No FDG avid neoplastic process in the abdomen/pelvis. No suspicious FDG avid osseous lesion. ASSESSMENT/PLAN: (C34.90) Small cell lung cancer (HCC) (primary encounter diagnosis) (F41.1, C80.1) Anxiety associated with cancer diagnosis (HCC) Assessment: -The patient is a 58-year-old female former, 33-myde-bmvt smoker with diagnosis of COPD who underwent evaluation for low right-sided cervical/supraclavicular adenopathy and was found to have small cell carcinoma. Limited stage. -Tolerated chemotherapy overall fairly well but was complicated by LUCIANA, dehydration, nausea (responded best to olanzapine). Dexamethasone made her very tremulous. -Posttherapy CTs demonstrated very good objective response-CT images with her and her . Verygood objective response. IA. -Again discussed she is at risk for recurrence. -Completed PCI. -Plan to monitor every 3 months for first 2 years at a minimum. Plan: -Rx Cymbalta 60 mg daily. -Wear wrist cock up splints both hands to bed every night. -If no improvement in CTS symptoms/neuropathy in a month or 2 then referral to orthopedics. -Otherwise lab work followed by CT of neck, chest abdomen pelvis then office visit in about 8 weeks. -Discussed the importance of not resuming smoking. She has been doing a great job of abstaining andknows how to distract herself should she have the urge to smoke. Portions of this documentation were copied and pasted from previous office visit notes in order to provide a cohesive continuity of the history. The note has been reviewed and edited and updated as necessary. I spent a total of 20 minutes on the date of the service which included preparing to see the patient, [id number] patient care, completing clinical documentation, obtaining and/or reviewing separately obtained history, performing a medically appropriate examination, counseling and educating the pat ient/family/caregiver, ordering medications, tests, or procedures, communicating with other HCPs (not separately reported), and communicating results to the patient/family/caregiver. Raven East DO documented in this encounterSycamore Medical Center04-24-2024 Nurse Note* Sheela Edwards RN - 10/25/2023 11:17 AM EDT Written discharge instructions given and reviewed with patient. Patient verbalizes understanding. Encouraged to call with any questions or concerns. Instruction for 4 week phone call follow up appointment given per Dr. Bravo. [facility] Nurse Note* Sheela Edwards RN - 10/25/2023 11:17 AM EDT Written discharge instructions given and reviewed with patient. Patient verbalizes understanding. Encouraged to call with any questions or concerns. Instruction for 4 week phone call follow up appointment given per Dr. Bravo. documented in this encounterWendy [place] [id number] History of Present illness Narrative* Caitlin Bravo MD - 10/25/2023 12:00 AM EDT KELLIE KANG I. [id number] : 1965 10/25/2023 [facility] Department of Radiation Oncology RADIATION ONCOLOGY - COMPLETION NOTE DATE OF SIMULATION: 10/10/23 DATES OF TREATMENT: 10/12/23 - 10/25/23 UNIT: [id number]_TRUEBEAM AREA TREATED: Brain DISEASE: Limited stage small cell lung cancer s/p chemoradiation treatment with radiation treatmentto the mediastinum/R SC finished on 07/17/23 and 4 cycles of Cisplatin/Etoposide finished on 08/30/23. She is now ready for prophylactic cranial irradiation. DELIVERED DOSE: 2500 cGy in 10 fractions treating to the 100% isodose line with 6MV and 2 segmentedfields. ELAPSED TIME: 13 days. TOLERANCE/ RESPONSE: She is doing well without any specific new complaints. REMARKS: She tolerated radiation treatment well. Four week follow-up with me. Staff Physician CAITLIN BRAVO M.D. / 41:26 PM Electronically Signed cc: Chinyere Lara ([facility]) [address] [place] [address] [place] [phone] Raven East documented in this encounterSycamore Medical Center04-23-2024 History of Present illness Narrative* Caitlin Bravo MD - 10/24/2023 11:34 AM EDT Radiation Oncology - On Treatment Review (OTR) Note PATIENT NAME: Kellie Kang PATIENT DIAGNOSIS: Limited stage small cell lung cancer s/p chemoradiation treatment with radiation treatment to the mediastinum/R SC finished on 07/17/23 and 4 cycles of Cisplatin/Etoposide finished on 08/30/23. COURSE: Prophylactic AREA TREATED: Brain CURRENT DOSE: 2250 cGy in 9 fx PLANNED DOSE: 2500 cGy in 10 fx Status: Post-menopausal SUBJECTIVE: She is doing well without any specific new complaints. EXAM: KPS: 100 General Appearance: Alert and oriented. No acute distress. Radiation dermatitis: No IMAGING/LAB RESULTS: None Treatment chart checked: Yes Patient treatment site reviewed and verified:Yes Port films reviewed and current:Yes Medications started: None ASSESSMENT/PLAN: Clinically stable. No signs of toxicity. Continue radiation treatment as planned. Caitlin Bravo MD documented in this encounterSycamore Medical Center04-23-2024 Nurse Note* Sheela Edwards RN - 10/24/2023 11:28 AM EDT Radiation Therapy - Nursing Note (OTV) PATIENT NAME: Kellie Kang PATIENT October 24, 2023 [facility] [place] FACILITY/LOCATION: [facility] NOTE TYPE: FUNDRAISING MANAGER Subjective Data no complaints Additional Data Do you want to see a Jtac? No Status: Post-menopausal. Stress Scale: On a scale of 0 to 10, what number best describes how much distress you have experienced in the past week?(0 being no distress and 10 being extreme distress) 0 Social work notified: no Nursing Assessment Fatigue: increased fatigue over baseline but not altering normal activities Appetite: good Nutritional Intake: Regular oral intake. Weight Gain/Loss: No Ambulatory weight history: Last 6 Encounter Wt Readings: Date: Wt: 09/20/2023 77.6 kg (171 lb) 08/24/2023 76.9 kg (169 lb 8 oz) 08/17/2023 75.1 kg (165 lb 8 oz) 07/28/2023 74.6 kg (164 lb 8 oz) 07/12/2023 75.1 kg (165 lb 8 oz) 07/06/2023 73.5 kg (162 lb) Nausea:None Vomiting: None Bowel Function: normal bowel movements Erythema/Hyperpigmentation:none Desquamation:none Rash:none Skin Care: Aquaphor Skin Sensation: Within Normal Limits Focused Assessment FUNDRAISING MANAGER: Alopecia: no. Headache: mild. Vision changes: none. Arm/leg numbness: none. Limb coordination:none. Memory changes: no changes from last week. Syncope: none. Disorientation: none. Seizures: none. Hearing changes: No. SIGNED by: Sheela Edwards RN [facility]04-23-2024 Nurse Note* Sheela Edwards RN - 10/24/2023 11:28 AM EDT Radiation Therapy - Nursing Note (OTV) PATIENT NAME: Kellie Kang PATIENT October 24, 2023 [facility], [place] FACILITY/LOCATION: [place] NURSING NOTE TYPE: FUNDRAISING MANAGER Subjective Data no complaints Additional Data Do you want to see a Jtac? No Status: Post-menopausal. Stress Scale: On a scale of 0 to 10, what number best describes how much distress you have experienced in the past week?(0 being no distress and 10 being extreme distress) 0 Social work notified: no Nursing Assessment Fatigue: increased fatigue over baseline but not altering normal activities Appetite: good Nutritional Intake: Regular oral intake. Weight Gain/Loss: No Ambulatory weight history: Last 6 Encounter Wt Readings: Date: Wt: 09/20/2023 77.6 kg (171 lb) 08/24/2023 76.9 kg (169 lb 8 oz) 08/17/2023 75.1 kg (165 lb 8 oz) 07/28/2023 74.6 kg (164 lb 8 oz) 07/12/2023 75.1 kg (165 lb 8 oz) 07/06/2023 73.5 kg (162 lb) Nausea:None Vomiting: None Bowel Function: normal bowel movements Erythema/Hyperpigmentation:none Desquamation:none Rash:none Skin Care: Aquaphor Skin Sensation: Within Normal Limits Focused Assessment FUNDRAISING MANAGER: Alopecia: no. Headache: mild. Vision changes: none. Arm/leg numbness: none. Limb coordination:none. Memory changes: no changes from last week. Syncope: none. Disorientation: none. Seizures: none. Hearing changes: No. SIGNED by: Sheela Edwards RN documented in this encounterSy[facility]04-[facility]24 Nurse Note* Sheela Edwards RN - 10/17/2023 11:42 AM EDT Radiation Therapy - Nursing Note (OTV) PATIENT NAME: Kellie Kang PATIENT October 17, 2023 [facility] [place] FACILITY/LOCATION: [place] NURSING NOTE TYPE: FUNDRAISING MANAGER Subjective Data slight headache takes tylenol which helps Additional Data Do you want to see a Jtac? No Status: Post-menopausal. Stress Scale: On a scale of 0 to 10, what number best describes how much distress you have experienced in the past week?(0 being no distress and 10 being extreme distress) 0 Social work notified: Pt denied need to see social problems specialist at this time. Nursing Assessment Fatigue: increased fatigue over baseline but not altering normal activities Appetite: good Nutritional Intake: Regular oral intake. Weight Gain/Loss: No Ambulatory weight history: Last 6 Encounter Wt Readings: Date: Wt: 09/20/2023 77.6 kg (171 lb) 08/24/2023 76.9 kg (169 lb 8 oz) 08/17/2023 75.1 kg (165 lb 8 oz) 07/28/2023 74.6 kg (164 lb 8 oz) 07/12/2023 75.1 kg (165 lb 8 oz) 07/06/2023 73.5 kg (162 lb) Nausea:None Vomiting: None Bowel Function: normal bowel movements Erythema/Hyperpigmentation:none Desquamation:none Rash:none Skin Care: Aquaphor Skin Sensation: Within Normal Limits Focused Assessment FUNDRAISING MANAGER: Alopecia: mild. Headache: mild. Vision changes: none. 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 Memory changes: mild. Syncope: none. Disorientation: none. Seizures: none.Hearing changes: No. SIGNED by: Sheela Edwards RN documented in this encounterSy[facility]04-16-[facility]24 History of Present illness Narrative* Caitlin Bravo MD - 10/17/2023 11:39 AM EDT Radiation Oncology - On Treatment Review (OTR) Note PATIENT NAME: Kellie Kang PATIENT DIAGNOSIS: Limited stage small cell lung cancer s/p chemoradiation treatment with radiation treatment to the mediastinum/R SC finished on 07/17/23 and 4 cycles of Cisplatin/Etoposide finished on 08/30/23. COURSE: Prophylactic AREA TREATED: Brain CURRENT DOSE: 1000 cGy in 4 fx PLANNED DOSE: 2500 cGy in 10 fx Status: Post-menopausal SUBJECTIVE: She is doing well without any specific new complaints. EXAM: KPS: 100 General Appearance: Alert and oriented. No acute distress. Radiation dermatitis: No IMAGING/LAB RESULTS: None Treatment chart checked: Yes Patient treatment site reviewed and verified:Yes Port films reviewed and current:Yes Medications started: None ASSESSMENT/PLAN: Clinically stable. No signs of toxicity. Continue radiation treatment as planned. Caitlin Bravo MD documented in this encounterSycam[facility] Center04-09-2024 Nurse Note* Sheela Edwards RN - 10/10/2023 10:24 AM EDT Radiation Therapy - Patient Education Note PATIENT NAME: Kellie Kang PATIENT October 10, 2023 [facility], [place] FACILITY/LOCATION: [place] READINESS TO LEARN Cognitive Ability: Alert and oriented Motivation to learn: Eager Family Support: High - Very involved in pt care Instruction provide to: Patient and Spouse Patient learns best by: Individual Instruction Written Instruction - Hand-outs Verbal Instruction Factors effecting learning: None Physical limitations effecting learning: None LEARNING RESPONSE Diagnosis: Pt simulated today for radiation therapy to brain. Education Topic/Teaching Points: Radiation therapy, Side effects, and OTV: Method of instruction: Teach Back skin care Individual instruction Written instruction - handouts Verbal instruction Patient /Family response: Patient and family verbalized understanding of radiation treatments, sideeffects, OTV, and transportation. Follow-up plan: Complete - No need for follow-up Contact information given. Supplemental material: Informational handouts on Fatigue, Hair loss, Nausea and vomiting, and Skin changes. Referral (recommendation): None, Pt denied need for social work, van service, and delicatessen store manager. Patient has an Onbody or Implanted device: No Signed by: Sheela Edwards RN documented in this encounterSycamore [facility] Center04-09-2024 History of Present illness Narrative* Caitlin Bravo MD - 10/10/2023 12:00 AM EDT KELLIE KANG I [id number] 10/10/2023 [facility] Department of Radiation Oncology [facility] RADIATION ONCOLOGY SIMULATION NOTE DATE OF SIMULATION: 10/10/2023 MACHINE: Siemens Definition CT Simulator Diagnosis: Limited stage small cell lung cancer s/p chemoradiation treatment with radiation treatment to the mediastinum/R SC finished on 07/17/23 and 4 cycles of Cisplatin/Etoposide finished on 08/30/23. AREA:Whole Brain PATIENT POSITION: Supine. CONTRAST: None PROTOCOL: None BLOCKING: Custom blocking to be determined at treatment planning. FIXATION DEVICE: In order to achieve accurate and reproducible treatments, the patient is to be immobilized with custom mask. PROCEDURE: A time-out was conducted and recorded by the therapist. Patient was simulated on the CT scanner for external beam radiation therapy. Treatment site was marked by the simulation therapist. ASSESSMENT/PLAN: Patient tolerated simulation procedure well. Treatments will be initiated after treatment planning. The patient is scheduled for a verification simulation on the treatment machine toensure proper set-up and field arrangement is correct prior to the first treatment of primary and boost mcelroy if applicable. Electronically Signed Caitlin Bravo M.D./yuni 43:03 PM documented in this encounterSycamore Medical Center04-09-2024 History of Present illness Narrative* Caitlin Bravo MD - 10/10/2023 12:00 AM EDT KELLIE KANG I [id number] 10/10/2023 [facility] Department of Radiation Oncology Treatment Planning Note For reasons stated in the consult note, Kellie Kang is a candidate for radiation therapy. Based on review and interpretation of the relevant diagnostic studies together with the exam findings, Kellie Kang was simulated on 10/10/2023 at which time the target volume and/or requisite mcelroy were d elineated, as indicated in the simulation note, to be treated according to the prescription. After reviewing the treatment plan with dosimetry, the plan was approved to deliver the prescribed course of radiation to the target area to allow for the best isodose distribution, treating to the 100% isodose line with 6MV and 2 segmented mcelroy. Custom MLC asym jaws were the treatment device(s) used to shape/modify the beams. A completed summary of this plan dated 10/10/2023 incorporated herein by reference includes dose, beam arrangements, energy, blocking, isodose distribution, and/or ports and DVH. Electronically Signed Caitlin Bravo M.D. 43:02 PM documented in this encounterSycamore Medical Center03-22-2024 History of Present illness Narrative* Caitlin Bravo MD - 09/22/2023 9:59 AM EDT Radiation Oncology - Follow Up Note PATIENT NAME: Kellie Kang PATIENT DIAGNOSIS: Limited stage small cell lung cancer s/p chemoradiation treatment with radiation treatment to the mediastinum/R SC finished on 07/17/23 and 4 cycles of Cisplatin/Etoposide finished on 08/30/23. INTERVAL HISTORY: She is here after she finishes chemotherapy to discuss PCI. CT neck/C/A/P on 09/14/23 showed substantially decreased of bulky right SC and superior mediastinum mass. MRI brain on 09/14/23 was negative for metastasis. She is doing well without any specific new complaints. She has residual numbness in fingertips and toes. She has occasional nausea from chemotherapy but that's improving. Fatigue is also improving. ALLERGIES No Known Allergies MEDICATIONS: OLANZapine (ZYPREXA) 5 mg tablet Take 1 tablet by mouth daily at bedtime. beginning the evening of first day of chemotherapy each cycle. vitamin B complex (B COMPLEX ORAL) Take 1 tablet by mouth once daily. iv contrast (will be provided with radiology test) CT ABD/PEL -Inject, intravenously, once for 1 dose.No IV access, insert saline lock prior to the beginning of sedation, infusion, injection of imaging exam. Discontinue saline lock post exam. If Pt. has a central line or IVAD, may access for administration according to line specific nursing protocol. Once exam is complete flush line and de-accessaccording to line specific nursing protocol in the CT contrast administration guidelines link. enteric contrast (will be provided with radiology test) For CT ABD/PEL W IVCON Routine order Administer, As Directed One Time Only, via Oral, Rectal, both Oral and Rectal, Enteric Tube, Stoma or Indwelling Catheter, Enteric Contrast as designated per enteric contrast guidelines iv contrast (will be provided with radiology test) CT Chest W -Inject, intravenously, once for 1 dose.No IV access, insert saline lock prior to the beginning of sedation, infusion, injection of imaging exam. Discontinue saline lock post exam. If Pt. has a central line or IVAD, may access for administration according to line specific nursing protocol. Once exam is complete flush line and de-accessaccording to line specific nursing protocol in the CT contrast administration guidelines link. diphenhydrAMINE (BENADRYL ALLERGY) 12.5 mg/5 mL liquid Take 50 mg by mouth two times a day. twice daily (Patient not taking: Reported on 07/06/2023) sucralfate (CARAFATE) 100 mg/mL suspension Take 10 mL by mouth four times daily. eqmhwfrszgSHVEI-eimdsp-ufpxvwsny (BMX 1:1:1) 1:1:1 liqd Take 10 mL by mouth every 4 hours as needed. (Patient not taking: Reported on 07/06/2023) dexAMETHasone (DECADRON) 4 mg tablet Take 1 tablet by mouth two times a day with meals. (breakfast and lunch) for 3 days beginning the day after chemotherapy treatment. prochlorperazine (COMPAZINE) 10 mg tablet Take 1 tablet by mouth every 6 hours as needed. ondansetron (ZOFRAN) 8 mg tablet Take 1 tablet by mouth every 8 hours as needed for nausea/vomiting. albuterol HFA (PROVENTIL HFA, VENTOLIN HFA) 90 mcg/actuation inhaler Inhale 2 Puffs as instructed every 4 hours as needed. PHYSICAL EXAM: KPS: 90 General Appearance: Alert and oriented. No acute distress. HEENT: NCAT. Sclera anicteric. EOMI. Neck: Normal ROM. Chest: No respiratory distress. Musculoskeletal: Normal ROM in extremities. Neuro: Speech fluent. Gait normal. No focal deficits. Hematologic: No signs of active bleeding. ASSESSMENT AND PLAN: 58 year old woman with limited stage small cell lung cancer s/p chemoradiationtreatment with radiation treatment to the mediastinum/R SC finished on 07/17/23 and 4 cycles of Cisplatin/Etoposide finished on 08/30/23. She had excellent response to chemoradiation treatment and I recommend PCI. I explained the rationale, benefits, alternative management options and potential complications of radiation treatment to the patient and she understands and agrees to proceed. It was explained and understood that other personnel such as radiation therapists, digester operator helper, and physicists will partici underwood in planning and delivery of radiation treatment. Patient will have a simulation procedure after she recovers from chemotherapy. Thank you very much for allowing us to participate in her care. Signed by: Caitlin Bravo MD cc: Chinyere Lara ([facility]) [address] [place] [address] [place] [address] Raven East documented in this encounterSycamore Medical Center03-20-2024 Nurse Note* Sheela Edwards RN - 09/20/2023 11:21 AM EDT Radiation Therapy - Nursing Note (Follow-up) PATIENT NAME: Kellie Kang PATIENT September 20, 2023 [facility] [place] FACILITY/LOCATION: [place] Reason for visit: discuss PCI . Subjective Data no complaints, just saw Dr East prior to this APPOINTMENT Additional Data Do you want to see a Jtac? No Nursing Assessment Fatigue: improving Appetite: good Weight Gain/Loss: No Last 6 Encounter Wt Readings: Date: Wt: 09/20/2023 77.6 kg (171 lb) 08/24/2023 76.9 kg (169 lb 8 oz) 08/17/2023 75.1 kg (165 lb 8 oz) 07/28/2023 74.6 kg (164 lb 8 oz) 07/12/2023 75.1 kg (165 lb 8 oz) 07/06/2023 73.5 kg (162 lb) Bowel Function: normal bowel movements Bone Pain: none Focused Assessment GENERAL: No additional assessment areas noted. See Dr East's encounter for vitals signs SIGNED by: Sheela Edwards RN documented in this encounterSycamore Medical Center03-20-2024 History of Present illness Narrative* Raven East, - 09/20/2023 10:58 AM EDT Oncologic problem(s): 1) Limited stage small cell lung cancer. HPI: The patient is a 58-year-old female former smoker who under presented for evaluation of right neck mass. Right lower neck mass for about a month. Saw Dr. Lara who ordered CT neck. She had a CT of the neck with contrast enhancement on 05/12/2023. This study revealed a nodule in the thyroid, right-sided gland measuring 9 x 6 mm. There is heterogeneity versus second nodule in theleft thyroid. Measurements were not rendered. There was right supraclavicular adenopathy, level 4B measuring 4.1 x 2.0 cm. There is mass effect and moderate narrowing of the right jugular vein and anadjacent enlarged lymph node measuring 1.3 x 1.6 cm. There is brachial enlarged lymph nodes measuring 1.3 x 1.3. Note was made of anterior cervical fusion hardware and previous discectomy changes at L5-6. Emphysematous changes were noted in the lung apices. Patient underwent FNA of the right-sided cervical adenopathy on 05/19/2023. Pathology: Positive for malignant cells. 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 Per initial consultation: had Covid. She got symptoms 05/24. Tested positive that day. Sore throat, headache, fever and malaise. Symptoms resolved except fatigue. No change in chronic cough from COPD. Rarely productive. Wheezes ( calls her wheezy). Mild JO. Hasn't had to stop any activity. 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 No issues with stairs, etc. Normal appetite. Neck pain. Pain in right chest (3-4 years; stress test okay). Used to come and go. Now seems to radiate down from the neck mass. COPE in right occipital area. Comes and go for about month. Quit smoking at time of diagnosis. Smoked a ppd for about 45 years. No alcohol. . Three older children. Previous therapy: 1) Concurrent chemotherapy and radiation with cisplatin etoposide. Completed chemotherapy 08/31/2023. Presents for ongoing oncologic management. Interim history: Has residual numbness fingertips and toes. Hydrating well. Occasional nausea. Still having generalized fatigue and some weakness but capable of ADLs. 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 beginning the evening of first day of chemotherapy each cycle. sucralfate (CARAFATE) 100 mg/mL suspension Take 10 mL by mouth four times daily. prochlorperazine (COMPAZINE) 10 mg tablet Take 1 tablet by mouth every 6 hours as needed. ondansetron (ZOFRAN) 8 mg tablet Take 1 tablet by mouth every 8 hours as needed for nausea/vomiting. vitamin B complex (B COMPLEX ORAL) Take 1 tablet by mouth once daily. iv contrast (will be provided with radiology test) CT ABD/PEL -Inject, intravenously, once for 1 dose.No IV access, insert saline lock prior to the beginning of sedation, infusion, injection of imaging exam. Discontinue saline lock post exam. If Pt. has a central line or IVAD, may access for administration according to line specific nursing protocol. Once exam is complete flush line and de-accessaccording to line specific nursing protocol in the CT contrast administration guidelines link. enteric contrast (will be provided with radiology test) For CT ABD/PEL W IVCON Routine order Administer, As Directed One Time Only, via Oral, Rectal, both Oral and Rectal, Enteric Tube, Stoma or Indwelling Catheter, Enteric Contrast as designated per enteric contrast guidelines iv contrast (will be provided with radiology test) CT Chest W -Inject, intravenously, once for 1 dose.No IV access, insert saline lock prior to the beginning of sedation, infusion, injection of imaging exam. Discontinue saline lock post exam. If Pt. has a central line or IVAD, may access for administration according to line specific nursing protocol. Once exam is complete flush line and de-accessaccording to line specific nursing protocol in the CT contrast administration guidelines link. diphenhydrAMINE (BENADRYL ALLERGY) 12.5 mg/5 mL liquid Take 50 mg by mouth two times a day. twice daily (Patient not taking: Reported on 07/06/2023) iumpqnxjeyYQKPN-qoaxrj-jksetdyjt (BMX 1:1:1) 1:1:1 liqd Take 10 mL by mouth every 4 hours as needed. (Patient not taking: Reported on 07/06/2023) dexAMETHasone (DECADRON) 4 mg tablet Take 1 tablet by mouth two times a day with meals. (breakfast and lunch) for 3 days beginning the day after chemotherapy treatment. albuterol HFA (PROVENTIL HFA, VENTOLIN HFA) 90 mcg/actuation inhaler Inhale 2 Puffs as instructed every 4 hours as needed. No current facility-administered medications for this visit. Social History Tobacco Use Smoking status: Former Packs/day: 1.00 Years: 45.00 Additional pack years: 0.00 Total pack years: 45.00 Types: Cigarettes Quit date: 05/27/2023 Years since quittin.3 Smokeless tobacco: Never Vaping Use Vaping Use: Never used Substance Use Topics Alcohol use: No Drug use: No Family History Problem Relation Age of Onset Cancer Mother leukemia Heart Father [place] other (respiratory failure) Sister Genitourinary () Paternal Grandfather Mother age 51 from leukemia. ROS: Constitutional: See above. Neuro: No symptoms of sensory neuropathy. HEENT: No recent change in voice, vision or hearing. Resp: No cough or wheezing. CVS: No exertional chest pain, PND or orthopnea. No extremity swelling/edema. No symptoms of claudication. No painful or tender varicose veins. GI: No dysphagia or odynophagia. No reflux. IBS--more constipation. : No dysuria or gross hematuria. No symptoms of bladder outlet obstruction. Endo: No hot flashes. No polyuria or polydipsia. No heat or cold intolerance. Musculoskeletal: No bone, back, joint and muscular pain. Derm: No current rash. No history of jaundice. No diffuse pruritis. Heme: No unusual bleeding and unexplained bruising. Psych: Anxious. PHYSICAL EXAM: Vitals: Blood pressure 111/74, pulse 95, temperature 37.1 C (98.8 F), weight 77.6 kg (171 lb), QlS123%. Better-appearing and in no acute distress. EYES: Sclerae are anicteric bilaterally. LYMPHATIC: Resolution of previous adenopathy. RESPIRATORY: Inspiratory breath sounds are of diminished intensity in all mcelroy. Scattered wheezesthroughout. CARDIOVASCULAR: Rhythm is regular. ABDOMEN: The abdomen is nondistended. Extremities: No swelling or edema. SKIN: No jaundice or rash. NEUROLOGIC: veneer puller II-XII are grossly intact. No focal motor weakness. LABS: Latest Ref Rng 09/20/2023 WBC 3.70 - 11.00 k/uL 5.87 RBC 3.90 - 5.20 m/uL 2.59 (L) Hemoglobin 11.5 - 15.5 g/dL 8.3 (L) Hematocrit 36.0 - 46.0 % 25.4 (L) MCV 80.0 - 100.0 fL 98.1 MCH 26.0 - 34.0 pg 32.0 MCHC 30.5 - 36.0 g/dL 32.7 RDW-CV 11.5 - 15.0 % 17.8 (H) Platelet Count 150 - 400 k/uL 226 MPV 9.0 - 12.7 fL 8.9 (L) Neut% % 72.1 Abs Neut (ANC) 1.45 - 7.50 k/uL 4.24 Lymph% % 10.6 Abs Lymph 1.00 - 4.00 k/uL 0.62 (L) Mcnairy% % 12.9 Abs Mcnairy <0.87 k/uL 0.76 Eosin% % 2.6 Abs Eosin <0.46 k/uL 0.15 Baso% % 0.9 Abs Baso <0.11 k/uL 0.05 Immature Gran % % 0.9 IMMATURE GRANS (ABS) <0.10 k/uL 0.05 NRBC /100 WBC 0.0 Absolute nRBC <0.01 k/uL <0.01 DTYPE Auto Glucose 74 - 99 mg/dL 107 (H) BUN 7 - 21 mg/dL 27 (H) Creatinine 0.58 - 0.96 mg/dL 1.29 (H) Sodium 136 - 144 mmol/L 136 Potassium 3.7 - 5.1 mmol/L 4.5 Chloride 97 - 105 mmol/L 104 CO2 22 - 30 mmol/L 24 Anion Gap 9 - 18 mmol/L 8 (L) Calcium 8.5 - 10.2 mg/dL 10.0 eGFR >=60 mL/min/1.73m 48 (L) Magnesium 1.7 - 2.3 mg/dL 2.1 IMAGING: PET scan 06/05/2023: IMPRESSION: * Hypermetabolic right lower cervical, mediastinal, and right hilar lymphadenopathy, compatible with biopsy-proven malignancy. * No discrete hypermetabolic pulmonary nodule/mass. * No FDG avid neoplastic process in the abdomen/pelvis. No suspicious FDG avid osseous lesion. ASSESSMENT/PLAN: (C34.90) Small cell lung cancer (HCC) (primary encounter diagnosis) (F41.1, C80.1) Anxiety associated with cancer diagnosis (HCC) Assessment: -The patient is a 58-year-old female former, [id number] smoker with diagnosis of COPD who underwent evaluation for low right-sided cervical/supraclavicular adenopathy and was found to have small cell carcinoma. -Limited stage. -LUCIANA. Mild increase in serum creatinine following CT scans. She received hydration the day of scans. She continues to hydrate well. -Chemotherapy-induced nausea--responds best to olanzapine. -Dexamethasone made her very shaky and she previously stopped taking it. -Personally reviewed CT images with her and her . Very good objective response. IA. Discussed she is at risk for recurrence. Plan to monitor every 3 months for first 2 years at a minimum. -Discussed PCI. Plan: -Seeing Dr. Bravo today. -Office visit with lab work in 4 to 6 weeks. -Plan CT imaging in about 3 months. Portions of this documentation were copied and pasted from previous office visit notes in order to provide a cohesive continuity of the history. The note has been reviewed and edited and updated as necessary. Raven East DO documented in this encounterSycamore Medical Center03-15-2024 Miscellaneous Notes* Telephone Encounter - Belgica Rao RN - 09/15/2023 10:19 AM EDT Spoke to Dr. East. Patient informed to monitor symptoms for now. If patient has any wheezing, choking, breathing issues/changes, or worsening swelling, she needs to go straight to the ED for evaluation. Patient advised sipping on cold ice water for now, can gargle with warm salt water, and avoid eating rough/spicy/citrus foods. Patient stated understanding. Belgica Rao RN * Telephone Encounter - Belgica Rao RN - 09/15/2023 10:03 AM EDT Spoke to patient. Patient had MRI/CT's yesterday. Patient woke up around 5 am with a super dry throat. Patient stated she kept trying to swallow over and over again because her throat was so dry and there was no saliva. Patient went back to sleep. Patient woke up an hour or two later and was drinking ensure. Patient stated her throat was very sore and feels that her glands are swollen in her neck. Patient stated her looked at her and he feels she looks swollen. Patient denies fever,chills, SOB, cough, difficulty breathing, lip/tongue swelling, or the skin being red or warm to touch. Patient feels the right side might be going down. Patient is wondering if she aggravated her th roat from trying to swallow repeatedly this morning. Will discuss with Dr. East. Belgica Rao RN * Telephone Encounter - Linda Helms LPN - 09/15/2023 9:48 AM EDT Pt calls office c/o waking up with a dry throat about 5AM. She felt like it was difficult to swallow. She denies rash, fever, cough, sob, itching. states her neck looks swollen, she feels nodules in her neck and thinks its swollen lymph nodes. She states she did not have these symptoms yesterday. She had a CT and MRI yesterday with no issue. Has not taken any benadryl. Spoke to Belgica Rao RN and transferred call to her. Linda Helms LPN documented in this encounterSy[facility]-14-[facility]24 History of Present illness Narrative* Yasmin Hankins RT(R) - 09/14/2023 11:20 AM EDT Radiology Service Progress Note DATE OF SERVICE: September 14, 2023 TIME: 2:45 PM PATIENT IDENTITY VERIFICATION COMPLETED USING TWO (2) STANDARD IDENTIFIERS: Name and Date of confirmed by patient verbally. FALL SCREENING: Has the patient had 2 falls in the last year or 1 fall with injury or currently using an Ambulatory Assistive Device (Walker, Cane, Wheelchair, Crutches, etc.)? No PATIENT GENDER DATA: Female. status: : No status: NO. PATIENT RELEVANT IMPLANT DATA REVIEWED: Yes PATIENT PRESENTS WITH AN IMPLANTABLE OR ATTACHED PRINCIPAL ACCOUNT CLERK: No ALLERGIES: Reviewed and unchanged CONTRAST ALLERGY: NO. EXAM: CT -CONTRAST INDUCED NEPHROPATHY RISK FACTORS: Not applicable CREATININE: Creatinine Date Value Ref Range Status 09/14/2023 1.12 (H) 0.58 - 0.96 mg/dL Final 09/07/2023 1.16 (H) 0.58 - 0.96 mg/dL Final 08/31/2023 1.41 (H) 0.58 - 0.96 mg/dL Final Estimated Glomerular Filtration Rate Date Value Ref Range Status 09/14/2023 57 (L) >=60 mL/min/1.73m Final Comment: Estimated Glomerular Filtration Rate (eGFR) is calculated using the 2020 CKD-EPI creatinine equation. This equation utilizes serum creatinine, sex, and age as parameters. The creatinine assay has traceable calibration to isotope dilution- mass spectrometry. Refer to KDIGO guidelines for clinical interpretation. In patients with unstable renal function, e.g. those with acute kidney injury, the eGFRmay not accurately reflect actual GFR. P.O.C.T. RESULTS: POC done: Yes, See Lab Tab September 14, 2023 TREATMENT: N/A PERIPHERAL IV DATA: Ambulatory: A peripheral IV was started in the Left hand with a Angio cath: 22 gauge. RADIOLOGY DEPARTMENT: CT; Exam(s) Completed: Chest Abdomen Pelvis and Neck SIGNATURE: RT Tomeka(R) PATIENT NAME: Kellie Kang DATE: September 14, 2023 TIME: 2:45 PM documented in this encounterSycam[facility]03-14-2024 History of Present illness Narrative* Татьяна Horton CT - 09/14/2023 9:00 AM EDT Radiology Service Progress Note DATE OF SERVICE: September 14, 2023 TIME: 9:57 AM PATIENT IDENTITY VERIFICATION COMPLETED USING TWO (2) STANDARD IDENTIFIERS: Name and Date of confirmed by patient verbally and Name and Date of confirmed by identification band. FALL SCREENING: Has the patient had 2 falls in the last year or 1 fall with injury or currently using an Ambulatory Assistive Device (Walker, Cane, Wheelchair, Crutches, etc.)? No PATIENT GENDER DATA: Female. status: : No status: NO. PATIENT RELEVANT IMPLANT DATA REVIEWED: Yes PATIENT PRESENTS WITH AN IMPLANTABLE OR ATTACHED PRINCIPAL ACCOUNT CLERK: No ALLERGIES: Reviewed and unchanged CONTRAST ALLERGY: NO. EXAM: MRI - CONTRAST TYPE: GROUP II PERIPHERAL IV DATA: Ambulatory: SEE NURSE NOTE RADIOLOGY DEPARTMENT: MR; Exam(s) Completed: Head: Routine Brain SIGNATURE: DANIELA Junior PATIENT NAME: Kellie Kang DATE: September 14, 2023 TIME: 9:57 AM documented in this encounterSycamore [facility] Center03-14-2024 Miscellaneous Notes* Result Encounter Note - Raven East DO - 09/14/2023 9:00 AM EDT Can let her know MRI brain showed no sign of cancer. documented in this encounterSycamore [facility] Center03-13-2024 Miscellaneous Notes* Telephone Encounter - Nelly Bernardo LPN - 09/13/2023 1:07 PM EDT Referral already updated in [facility]. Left message for patient. Nelly Bernardo LPN * Telephone Encounter - Raven East DO - 09/13/2023 12:48 PM EDT Received this in an email from [facility]. Physician there completed the peer to peer. Peer to peer was completed and the denial was overturned. MRI approved. Auth # [id number]. Raven East DO documented in this encounterSycamore [facility] Center03-07-2024 Miscellaneous Notes* Telephone Encounter - Estefania Marquez - 09/07/2023 2:22 PM EST Called patient and informed her to be here at 8:00 AM for Hydration she voiced and understood Estefania Marquez * Telephone Encounter - Nelly Bernardo LPN - 09/07/2023 11:[address] East- please file hydration orders. Patient has standing lab orders. PSS- patient needs 1 hour hydration on 09/14/[address] that day. Patient will also need labs drawn prior to hydration- please adjust her lab appointment and add on for hydration. She will need notified of this. She has standing lab orders. Nelly Bernardo LPN documented in this encounterSycamore [facility] Center02-28-2024 History of Present illness Narrative* Gayatri Signh RN - 08/30/2023 7:47 AM EST Assessment unchanged from 08/29/23 chemotherapy treatment documented in this encounterSycamore [facility] Center02-22-2024 Miscellaneous Notes* Telephone Encounter - Rena Espino - 08/24/2023 3:20 PM EST Lab appointment moved to accommodate testing. Patient aware of all appointments on 09/13. Rena Espino * Telephone Encounter - Татьяна Rudd - 08/24/2023 3:02 PM EST Pt returned call. Scheduled all tests on 09/14/23 as approved by tech. * Telephone Encounter - Rena Espino - 08/24/2023 12:39 PM EST Left message for patient to return call. When she calls, please schedule MRI of the Brain on 09/13 at 9:00 AM per bean dumper and CT C/A/P and Neck (can be in 1 appt. Per window trimmer apprentice) on the same day. Rena Espino documented in this encounterSycamore Medical Center02-22-2024 History of Present illness Narrative* Raven East DO - 08/24/2023 12:06 PM EST Oncologic problem(s): 1) Limited stage small cell lung cancer. HPI: The patient is a 58-year-old female former smoker who under presented for evaluation of right neck mass. Right lower neck mass for about a month. Saw Dr. Lara who ordered CT neck. She had a CT of the neck with contrast enhancement on 05/12/2023. This study revealed a nodule in the thyroid, right-sided gland measuring 9 x 6 mm. There is heterogeneity versus second nodule in theleft thyroid. Measurements were not rendered. There was right supraclavicular adenopathy, level 4B measuring 4.1 x 2.0 cm. There is mass effect and moderate narrowing of the right jugular vein and anadjacent enlarged lymph node measuring 1.3 x 1.6 cm. There is brachial enlarged lymph nodes measuring 1.3 x 1.3. Note was made of anterior cervical fusion hardware and previous discectomy changes at L5-6. Emphysematous changes were noted in the lung apices. Patient underwent FNA of the right-sided cervical adenopathy on 05/19/2023. Pathology: Positive for malignant cells. 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 Per initial consultation: had Covid. She got symptoms 05/24. Tested positive that day. Sore throat, headache, fever and malaise. Symptoms resolved except fatigue. No change in chronic cough from COPD. Rarely productive. Wheezes ( calls her wheezy). Mild JO. Hasn't had to stop any activity. 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 No issues with stairs, etc. Normal appetite. Neck pain. Pain in right chest (3-4 years; stress test okay). Used to come and go. Now seems to radiate down from the neck mass. COPE in right occipital area. Comes and go for about month. Quit smoking at time of diagnosis. Smoked a ppd for about 45 years. No alcohol. . Three older children. Current therapy: 1) Concurrent chemotherapy and radiation with cisplatin etoposide. Presents for ongoing oncologic management. Interim history: Feeling much better after 1 unit red blood cell transfusion last week. Good appetite. 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 OLANZapine (ZYPREXA) 5 mg tablet Take 1 tablet by mouth daily at bedtime. beginning the evening of first day of chemotherapy each cycle. sucralfate (CARAFATE) 100 mg/mL suspension Take 10 mL by mouth four times daily. dexAMETHasone (DECADRON) 4 mg tablet Take 1 tablet by mouth two times a day with meals. (breakfast and lunch) for 3 days beginning the day after chemotherapy treatment. prochlorperazine (COMPAZINE) 10 mg tablet Take 1 tablet by mouth every 6 hours as needed. ondansetron (ZOFRAN) 8 mg tablet Take 1 tablet by mouth every 8 hours as needed for nausea/vomiting. diphenhydrAMINE (BENADRYL ALLERGY) 12.5 mg/5 mL liquid Take 50 mg by mouth two times a day. twice daily (Patient not taking: Reported on 07/06/2023) ulfwwpzgahQGBZN-kligvv-aalqqzlvu (BMX 1:1:1) 1:1:1 liqd Take 10 mL by mouth every 4 hours as needed. (Patient not taking: Reported on 07/06/2023) albuterol HFA (PROVENTIL HFA, VENTOLIN HFA) 90 mcg/actuation inhaler Inhale 2 Puffs as instructed every 4 hours as needed. No current facility-administered medications for this visit. Social History Tobacco Use Smoking status: Former Packs/day: 1.00 Years: 45.00 Additional pack years: 0.00 Total pack years: 45.00 Types: Cigarettes Quit date: 05/27/2023 Years since quittin.2 Smokeless tobacco: Never Vaping Use Vaping Use: Never used Substance Use Topics Alcohol use: No Drug use: No Family History Problem Relation Age of Onset Cancer Mother leukemia Heart Father [place] other (respiratory failure) Sister Genitourinary () Paternal Grandfather Mother age 51 from leukemia. ROS: Constitutional: See above. Neuro: No symptoms of sensory neuropathy. HEENT: No recent change in voice, vision or hearing. Resp: No cough, wheeze of hemoptysis. No shortness of breath at rest. No JO. CVS: No exertional chest pain, PND or orthopnea. No extremity swelling/edema. No symptoms of claudication. No painful or tender varicose veins. GI: No dysphagia or odynophagia. No reflux. IBS--more constipation. : No dysuria or gross hematuria. No symptoms of bladder outlet obstruction. Endo: No hot flashes. No polyuria or polydipsia. No heat or cold intolerance. Musculoskeletal: No bone, back, joint and muscular pain. Derm: No current rash. No history of jaundice. No diffuse pruritis. Heme: No unusual bleeding and unexplained bruising. Psych: Anxious. PHYSICAL EXAM: Vitals: Blood pressure 97/61, pulse 102, temperature 36.9 C (98.5 F), weight 76.9 kg (169 lb 8 oz),SpO2 99%. Better-appearing and in no acute distress. EYES: Sclerae are anicteric bilaterally. ENT: Oral mucosa is unremarkable. LYMPHATIC: Resolution of previous adenopathy. RESPIRATORY: Inspiratory breath sounds are of diminished intensity in all mcelroy. Scattered wheezesthroughout. CARDIOVASCULAR: Rhythm is regular. ABDOMEN: The abdomen is nondistended. Extremities: No swelling or edema. SKIN: No jaundice or rash. NEUROLOGIC: veneer puller II-XII are grossly intact. No focal motor weakness. MUSCULOSKELETAL: No muscle wasting. LABS: Component Latest Ref Rng & Units 08/24/2023 WBC 3.70 - 11.00 k/uL 7.61 RBC 3.90 - 5.20 m/uL 3.05 (L) Hemoglobin 11.5 - 15.5 g/dL 9.2 (L) Hematocrit 36.0 - 46.0 % 28.4 (L) MCV 80.0 - 100.0 fL 93.1 MCH 26.0 - 34.0 pg 30.2 MCHC 30.5 - 36.0 g/dL 32.4 RDW-CV 11.5 - 15.0 % 16.7 (H) Platelet Count 150 - 400 k/uL 419 (H) MPV 9.0 - 12.7 fL 9.5 Neut% % 75.0 Abs Neut (ANC) 1.45 - 7.50 k/uL 5.71 Lymph% % 8.0 Abs Lymph 1.00 - 4.00 k/uL 0.61 (L) Mcnairy% % 11.0 Abs Mcnairy <0.87 k/uL 0.84 Eosin% % 2.8 Abs Eosin <0.46 k/uL 0.21 Baso% % 2.1 Abs Baso <0.11 k/uL 0.16 (H) Immature Gran % % 1.1 IMMATURE GRANS (ABS) <0.10 k/uL 0.08 NRBC /100 WBC 0.0 Absolute nRBC <0.01 k/uL <0.01 DTYPE Auto Protein, Total 6.3 - 8.0 g/dL 6.3 Albumin 3.9 - 4.9 g/dL 3.8 (L) Calcium 8.5 - 10.2 mg/dL 8.7 Bilirubin, Total 0.2 - 1.3 mg/dL <0.2 (L) Alkaline Phosphatase 34 - 123 U/L 61 AST 13 - 35 U/L 15 ALT 7 - 38 U/L 10 Glucose 74 - 99 mg/dL 104 (H) BUN 7 - 21 mg/dL 30 (H) Creatinine 0.58 - 0.96 mg/dL 1.20 (H) Sodium 136 - 144 mmol/L 136 Potassium 3.7 - 5.1 mmol/L 4.6 Chloride 97 - 105 mmol/L 105 CO2 22 - 30 mmol/L 23 Anion Gap 9 - 18 mmol/L 8 (L) eGFR >=60 mL/min/1.73m 53 (L) Magnesium 1.7 - 2.3 mg/dL 2.1 IMAGING: PET scan 06/05/2023: IMPRESSION: * Hypermetabolic right lower cervical, mediastinal, and right hilar lymphadenopathy, compatible with biopsy-proven malignancy. * No discrete hypermetabolic pulmonary nodule/mass. * No FDG avid neoplastic process in the abdomen/pelvis. No suspicious FDG avid osseous lesion. ASSESSMENT/PLAN: (C34.90) Small cell lung cancer (HCC) (primary encounter diagnosis) (F41.1, C80.1) Anxiety associated with cancer diagnosis (HCC) Assessment: -The patient is a 58-year-old female former, [id number]-sbcc smoker with diagnosis of COPD who underwent evaluation for low right-sided cervical/supraclavicular adenopathy and was found to have small cell carcinoma. -Limited stage. -Counts reviewed. -LUCIANA. Serum creatinine increases between cycles but returns to baseline. -Chemotherapy-induced nausea and vomiting--responds best to olanzapine. Dexamethasone made her veryshaky and she previously stopped taking it. Plan: -Okay for cycle #4 Monday. -Continue monitoring CBC weekly x 4 for potential transfusion. Monitor electrolytes for potential replacement weekly x 4.. -Repeat CTs and MRI brain in about 3 to 4 weeks. -Potential PCI. Portions of this documentation were copied and pasted from previous office visit notes in order to provide a cohesive continuity of the history. The note has been reviewed and edited and updated as necessary. I spent a total of 20 minutes on the date of the service which included preparing to see the patient, [id number] patient care, completing clinical documentation, obtaining and/or reviewing separately obtained history, performing a medically appropriate examination, counseling and educating the pat ient/family/caregiver, ordering medications, tests, or procedures, communicating with other HCPs (not separately reported), and communicating results to the patient/family/caregiver. Raven East DO documented in this encounterSycamore Medical Center02-15-2024 Miscellaneous Notes* Telephone Encounter - Nelly Bernardo LPN - 08/17/2023 12:00 PM EST Patient scheduled for 1 unit PRBC 08/18/2023 @ 09, [facility]. Orders faxed. Patient and lab aware. Nelly Bernardo LPN documented in this encounterSycamore Medical Center02-15-2024 History of Present illness Narrative* Raven East DO - 08/17/2023 11:39 AM EST Oncologic problem(s): 1) Limited stage small cell lung cancer. HPI: The patient is a 58-year-old female former smoker who under presented for evaluation of right neck mass. Right lower neck mass for about a month. Saw Dr. Lara who ordered CT neck. She had a CT of the neck with contrast enhancement on 05/12/2023. This study revealed a nodule in the thyroid, right-sided gland measuring 9 x 6 mm. There is heterogeneity versus second nodule in theleft thyroid. Measurements were not rendered. There was right supraclavicular adenopathy, level 4B measuring 4.1 x 2.0 cm. There is mass effect and moderate narrowing of the right jugular vein and anadjacent enlarged lymph node measuring 1.3 x 1.6 cm. There is brachial enlarged lymph nodes measuring 1.3 x 1.3. Note was made of anterior cervical fusion hardware and previous discectomy changes at L5-6. Emphysematous changes were noted in the lung apices. Patient underwent FNA of the right-sided cervical adenopathy on 05/19/2023. Pathology: Positive for malignant cells. 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 Per initial consultation: had Covid. She got symptoms 05/24. Tested positive that day. Sore throat, headache, fever and malaise. Symptoms resolved except fatigue. No change in chronic cough from COPD. Rarely productive. Wheezes ( calls her wheezy). Mild JO. Hasn't had to stop any activity. 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 No issues with stairs, etc. Normal appetite. Neck pain. Pain in right chest (3-4 years; stress test okay). Used to come and go. Now seems to radiate down from the neck mass. COPE in right occipital area. Comes and go for about month. Quit smoking at time of diagnosis. Smoked a ppd for about 45 years. No alcohol. . Three older children. Current therapy: 1) Concurrent chemotherapy and radiation with cisplatin etoposide. Presents for ongoing oncologic management. Interim history: More fatigued. Sensation of tachycardia when walking. Sometimes when sitting. Took her most of the day to wash dishes yesterday. No chest pain. Good appetite. Two episodes vomiting last week. No nausea this week. Getting in a lot of Pedilyte. 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 beginning the evening of first day of chemotherapy each cycle. dexAMETHasone (DECADRON) 4 mg tablet Take 1 tablet by mouth two times a day with meals. (breakfast and lunch) for 3 days beginning the day after chemotherapy treatment. prochlorperazine (COMPAZINE) 10 mg tablet Take 1 tablet by mouth every 6 hours as needed. ondansetron (ZOFRAN) 8 mg tablet Take 1 tablet by mouth every 8 hours as needed for nausea/vomiting. diphenhydrAMINE (BENADRYL ALLERGY) 12.5 mg/5 mL liquid Take 50 mg by mouth two times a day. twice daily (Patient not taking: Reported on 07/06/2023) sucralfate (CARAFATE) 100 mg/mL suspension Take 10 mL by mouth four times daily. luatbicqdvAQYAU-okskmn-mpbkrixes (BMX 1:1:1) 1:1:1 liqd Take 10 mL by mouth every 4 hours as needed. (Patient not taking: Reported on 07/06/2023) lisinopril (ZESTRIL) 10 mg tablet Take 1 tablet by mouth once daily. albuterol HFA (PROVENTIL HFA, VENTOLIN HFA) 90 mcg/actuation inhaler Inhale 2 Puffs as instructed every 4 hours as needed. No current facility-administered medications for this visit. Social History Tobacco Use Smoking status: Former Packs/day: 1.00 Years: 45.00 Additional pack years: 0.00 Total pack years: 45.00 Types: Cigarettes Quit date: 05/27/2023 Years since quittin.2 Smokeless tobacco: Never Vaping Use Vaping Use: Never used Substance Use Topics Alcohol use: No Drug use: No Family History Problem Relation Age of Onset Cancer Mother leukemia Heart Father [place] other (respiratory failure) Sister Genitourinary () Paternal Grandfather Mother age 51 from leukemia. ROS: Constitutional: See above. Neuro: No symptoms of sensory neuropathy. HEENT: No recent change in voice, vision or hearing. Resp: No cough, wheeze of hemoptysis. No shortness of breath at rest. No JO. CVS: No exertional chest pain, PND or orthopnea. No extremity swelling/edema. No symptoms of claudication. No painful or tender varicose veins. GI: No dysgeusia. No symptoms of stomatitis. No dysphagia or odynophagia. No reflux, n/v. IBS--moreconstipation. : No dysuria or gross hematuria. No symptoms of bladder outlet obstruction. Endo: No hot flashes. No polyuria or polydipsia. No heat or cold intolerance. Musculoskeletal: No bone, back, joint and muscular pain. Derm: No current rash. No history of jaundice. No diffuse pruritis. Heme: No unusual bleeding and unexplained bruising. Psych: Anxious. PHYSICAL EXAM: Vitals: Blood pressure 99/58, pulse 95, temperature 37.1 C (98.7 F), weight 75.1 kg (165 lb 8 oz), SpO2 99%. Pale-appearing and in no acute distress. EYES: Sclerae are anicteric bilaterally. ENT: Oral mucosa is unremarkable. LYMPHATIC: Resolution of previous adenopathy. RESPIRATORY: Inspiratory breath sounds are of diminished intensity in all mcelroy. Scattered wheezesthroughout. CARDIOVASCULAR: Rhythm is regular. ABDOMEN: The abdomen is nondistended. Extremities: No swelling or edema. SKIN: No jaundice or rash. NEUROLOGIC: veneer puller II-XII are grossly intact. No focal motor weakness. MUSCULOSKELETAL: No muscle wasting. LABS: Component Latest Ref Rng & Units 08/17/2023 Protein, Total 6.3 - 8.0 g/dL 6.3 Albumin 3.9 - 4.9 g/dL 3.8 (L) Calcium 8.5 - 10.2 mg/dL 8.8 Bilirubin, Total 0.2 - 1.3 mg/dL <0.2 (L) Alkaline Phosphatase 34 - 123 U/L 78 AST 13 - 35 U/L 17 ALT 7 - 38 U/L 9 Glucose 74 - 99 mg/dL 108 (H) BUN 7 - 21 mg/dL 25 (H) Creatinine 0.58 - 0.96 mg/dL 1.31 (H) Sodium 136 - 144 mmol/L 139 Potassium 3.7 - 5.1 mmol/L 4.4 Chloride 97 - 105 mmol/L 106 (H) CO2 22 - 30 mmol/L 23 Anion Gap 9 - 18 mmol/L 10 eGFR >=60 mL/min/1.73m 47 (L) WBC 3.70 - 11.00 k/uL 18.74 (H) RBC 3.90 - 5.20 m/uL 2.39 (L) Hemoglobin 11.5 - 15.5 g/dL 7.2 (L) Hematocrit 36.0 - 46.0 % 22.0 (L) MCV 80.0 - 100.0 fL 92.1 MCH 26.0 - 34.0 pg 30.1 MCHC 30.5 - 36.0 g/dL 32.7 RDW-CV 11.5 - 15.0 % 13.7 Platelet Count 150 - 400 k/uL 183 MPV 9.0 - 12.7 fL 9.9 Magnesium 1.7 - 2.3 mg/dL 1.9 IMAGING: PET scan 06/05/2023: IMPRESSION: * Hypermetabolic right lower cervical, mediastinal, and right hilar lymphadenopathy, compatible with biopsy-proven malignancy. * No discrete hypermetabolic pulmonary nodule/mass. * No FDG avid neoplastic process in the abdomen/pelvis. No suspicious FDG avid osseous lesion. ASSESSMENT/PLAN: (C34.90) Small cell lung cancer (HCC) (primary encounter diagnosis) (F41.1, C80.1) Anxiety associated with cancer diagnosis (HCC) Assessment: -The patient is a 58-year-old female former, 68-mume-hcqo smoker with diagnosis of COPD who underwent evaluation for low right-sided cervical/supraclavicular adenopathy and was found to have small cell carcinoma. -Limited stage. -Counts reviewed. Significantly more anemic and symptomatic. Discussed utility of red blood cell transfusion. Addressed concerns she had. She understands the risk for viral transmission is possible but significantly small. Potential benefit of transfusion outweighs risk. -LUCIANA. Serum creatinine increases between cycles but returns to baseline. -Chemotherapy-induced nausea and vomiting--responds best to olanzapine. Dexamethasone made her veryshaky and she previously stopped taking it. Plan: -Delay cycle #4 a week. -Transfuse 1 unit RBCs tomorrow. -OV next week. -Refill olanzapine. -Repeat CTs and MRI brain following cycle #4. -Potential PCI. -Weekly BMP/Mg during therapy. Portions of this documentation were copied and pasted from previous office visit notes in order to provide a cohesive continuity of the history. The note has been reviewed and edited and updated as necessary. Raven East DO documented in this encounterSycam[facility] Center02-12-2024 History of Present illness Narrative* Caitlin Bravo MD - 08/14/2023 1:12 PM EST AMBULATORY TELEPHONE VISIT Kellie Kang has consented to this telephone encounter. Persons Present: patient Chief Complaint/Reason: Four week follow-up after radiation treatment. HPI: Limited stage small cell lung cancer s/p chemoradiation treatment finished on 07/17/23. She is doing well without any specific new complaints. She denies any odynophagia or dysphagia now.She stopped Carafate. She has a few episodes of nausea/vomiting attributed to ongoing chemotherapy.She has moderate fatigue. Data Reviewed: None. Assessment: She recovered well from acute radiation esophagitis. Plan: Her last chemotherapy is scheduled on 08/23/23. Follow-up with me in one month to discuss PCI. Total Time Spent: 5 minutes Caitlin Bravo MD documented in this encounterSycamore Medical Center01-08-2024 Miscellaneous Notes* Telephone Encounter - Diana High - 07/10/2023 3:12 PM EST Pt authorized and will be treated 07/11/2023 * Telephone Encounter - Rena Espino - 07/07/2023 4:43 PM EST Jocelyne Oates From [facility] called back to ask some verifying questions. She is a fashion consultant selling gathering information to try to assist the patient in receiving treatment. This PSS advised that our pharmacist stated that she could not be treated (chemotherapy) without authorization and that [facility] would not back date the authorization. Leaving appointments on in case authorization does come through. If not, cancel treatment on Monday. Rena Espino . * Telephone Encounter - Rena Espino - 07/07/2023 3:00 PM EST Per conversation with pharmacist and insurance is denying patient's chemo and possibly denying radiation. Patient and spouse notified. Spouse will be contacting his work as the new insurance is through work. This PSS notified RAD/ONC nurse of the situation. Chemo for 07/10/22 cancelled. documented in this encounterSycamore Medical Center12-13-2023 Miscellaneous Notes* Telephone Encounter - Rena Espino - 06/14/2023 3:36 PM EST Per email from Resource Program Teacher Holly Bennett: Below are some emails between myself and our covering financial navigator to help. To bring some context - originally both Kellie and her were working. When I first met with them they justplanned on doing consistent leave FMLA for Kellie. Don () came and talked to me yesterdayand said they've decided it's best for Kellie just to quit her job. So this is why the sudden change in insurance. Per Sonya's email below, Kellie's primary insurance will remain active until 07/02 at which timeshe will switch to 's insurance being primary. I think the confusion is that Don is not understanding that when you quit a job your insurance typically continues through the end of that month.He is thinking it should just be canceled but that's not the case. [facility] needs added back in until the end of June. This PSS added her [facility] insurance back on and it is verified through the end of the month. * Telephone Encounter - Juliocesar Apple - 06/14/2023 1:41 PM EST Patient called stating she is waiting for a call from [facility]. She states she will call us back as soonas she hears from them. * Telephone Encounter - Rena Espino - 06/14/2023 12:28 PM EST Spoke with patient as we are having issues with her insurance. Patient stated that she is trying tocancel [facility] as they are not communicating with her re: how much they will cover for her appointments/they are not calling her back. This PSS asked her to call them and confirm if she is still covered by them as [employer], her secondaryinsurance, is refusing to approve/authorize anything as they are secondary. When patient calls back, please update insurance information and then notify Nurse Site Coordinator for authorization. Rena Espino documented in this encounterSycamore Medical Center12-08-2023 Miscellaneous Notes* Telephone Encounter - Marcia Kay - 06/09/2023 9:14 AM EST Second cycle scheduled * Telephone Encounter - Marcia Kay - 06/07/2023 8:57 AM EST First cycle scheduled- start e-mail sent Message sent to scheduling team to work pt in for second cycle * Telephone Encounter - Shabana Riddle LPN - 06/06/2023 5:06 PM EST Spoke with pt. Informed her PET scan showed no evidence of cancer outside the lower part of the neck and chest. We are going to proceed with chemotherapy and radiation. Dr. Bravo would like to start radiation on 06/19. Please schedule to start cisplatin and etoposide that day. She can be straight back for first treatment without labs since baseline lab work 06/01 was good. Pt. Voiced understanding. Shabana Riddle LPN * Telephone Encounter - Raven East DO - 06/06/2023 4:32 PM EST Her PET scan showed no evidence of cancer outside the lower part of the neck and chest. We are going to proceed with chemotherapy and radiation. Dr. Bravo would like to start radiation on 06/19. Pleaseschedule to start cisplatin and etoposide that day. She can be straight back for first treatment without labs since baseline lab work 06/01 was good. Raven East DO * Telephone Encounter - Juliocesar Apple - 06/06/2023 1:33 PM EST Patient called stating ENT appointment had been moved up to 06/08 @ 10:30. Pet Scan was completed 06/05. * Telephone Encounter - Juliocesar Apple - 06/06/2023 10:08 AM EST Please advise of Radiation start date. * Telephone Encounter - Marcia Kay - 06/02/2023 3:35 PM EST Check out comments: Referral to Dr. Johnson's office for baseline audiogram.06/12(FIRST AVAILABLE) Chemotherapy teaching.06/07 Begin chemotherapy day 1 of radiation. CBC/CMP/Mg/Straight back day 1. Weekly BMP/Mg x12 weeks. OV/CBC/CMP/Mg for cycle #2. documented in this encounterSycamore Medical Center12-06-2023 Nurse Note* Belgica Rao RN - 06/07/2023 2:45 PM EST This visit was completed via telephone. Belgica Rao RN * Belgica Rao RN - 06/07/2023 2:43 PM EST ONCOLOGY PATIENT EDUCATION NOTE TOPIC: Chemotherapy, Medications: Cisplatin/Etoposide READINESS TO LEARN: COGNITIVE ABILITY: Alert and oriented MOTIVATION TO LEARN: Interested FAMILY SUPPORT: Unable to assess - Family not present INSTRUCTION PROVIDED TO: Patient INSTRUCTION PROVIDED BY: Nurse Coordinator PATIENT LEARNS BEST BY: Multiple Methods FACTORS AFFECTING LEARNING: None PHYSICAL LIMITATIONS AFFECTING LEARNING: None LEARNING RESPONSE DIAGNOSIS: SCLC METHOD OF INSTRUCTION: Individual instruction Written instruction - handouts Verbal instruction PATIENT/FAMILY RESPONSE: Verbalizes understanding of: CHEMOTHERAPY-Regimen, toxicity and side effects FOLLOW UP PLAN: Patient instructed to call with any further issues Recommend - Recommend continued instruction and follow up as directed Follow up phone call. Contact information given. SUPPLEMENTAL MATERIAL: Written material was provided at this visit with the following information: - Chemotherapy education was provided by a pharmacist NO - Side effect management information was provided/discussed including but not limited to: abdominaldiscomfort, anemia, appetite changes, arthralgia, bowel habit changes, diet, electrolyte disturbances, fatigue, hair loss, infection, mouth hygiene, mucositis, myalgia, nausea/vomitting, neuropathy, neutropenia, peripheral neuropathy, rash, taste changes, thrombocytopenia YES - Provided important phone numbers and contacts during and after hours. YES - Provided information on symptoms that require immediate assistance. YES - Provided Chemotherapy when to call handouts YES - Preventing infection. YES - Treatment schedule and confirmation of appointment times. YES - Available support groups. YES - The importance of contraception during the course of chemotherapy YES - Neutropenic fever protocol discussed with patient, which included the importance of reporting anyfever of 100.4F (38.0C) or greater to the healthcare team as noted on the provided wallet card and/or magnet. YES Time Spent: 60 minutes REFERRAL (RECOMMENDATION): N/A Belgica Rao RN * Belgica Rao RN - 06/07/2023 2:42 PM EST Paper Ruler Pre Chemo Patient identified by name and date of . YES Confirmed date and time for chemotherapy ? YES Other appointments (labs, imaging) discussed? YES Discussed where to park (associate field service engineer), charge for parking YES Discussed where to report (building/floor) YES Any pre-medications ordered? NO Described the infusion room and what to expect. (What to wear, what to bring [iPad, books] amount of time treatment can take, meals and CC options for food) YES Note: Discussed whether the patient can eat prior to labs and treatment. YES Who is driving you to and from treatment? Spouse Discussed why it is important to bring someone with you. Yes, for the first treatment Resources discussed (music therapy, Art therapy, pet therapy, etc.) NO Education on chemotherapy (drug, side effects) discussed and that the patient will be receiving a C1D1 call within 7 days of treatment. YES Other topics discussed, interventions needed: Belgica Rao RN documented in this encounterSycamore Medical Center12-06-2023 Nurse Note* Sheela Edwards RN - 06/07/2023 11:21 AM EST Radiation Therapy - Patient Education Note PATIENT NAME: Kellie Kang PATIENT June 07, 2023 [facility] [place] FACILITY/LOCATION: [place] READINESS TO LEARN Cognitive Ability: Alert and oriented Motivation to learn: Eager Family Support: Unable to assess - Family not present Instruction provide to: Patient Patient learns best by: Individual Instruction Written Instruction - Hand-outs Verbal Instruction Factors effecting learning: None Physical limitations effecting learning: None LEARNING RESPONSE Diagnosis: Pt simulated today for radiation therapy to right lung. Education Topic/Teaching Points: Radiation therapy, Side effects, OTV, and Transportation: Method of instruction: Teach Back skin care Individual instruction Written instruction - handouts Verbal instruction Patient /Family response: Patient verbalized understanding of radiation treatments, side effects, OTV, and transportation. Follow-up plan: Complete - No need for follow-up Contact information given. Supplemental material: Informational handouts on Esophagitis/Mucositis, Fatigue, and Skin changes. Referral (recommendation): None, Pt denied need for social work, van service, and delicatessen store manager. Signed by: Sheela Edwards RN documented in this encounterSycamore Medical Center12-04-2023 History of Present illness Narrative* Araceli Guerrero, RT(R) - 06/05/2023 1:37 PM EST RADIOLOGY SERVICE PROGRESS NOTE SERVICE DATE: 06/05/2023 SERVICE TIME: 1:37 PM PATIENT IDENTITY VERIFICATION COMPLETED USING TWO (2) STANDARD IDENTIFIERS: Name and Date of confirmed by patient verbally FALL SCREENING: Has the patient had 2 falls in the last year or 1 fall with injury or currently using an Ambulatory Assistive Device (Walker, Cane, Wheelchair, Crutches, etc.)? No PATIENT GENDER DATA: .female : No status: No ALLERGIES: NA MEDICATIONS REVIEWED: Not applicable PATIENT RELEVANT IMPLANT DATA REVIEWED: Not Applicable CREATININE: Creatinine Date Value Ref Range Status 06/01/2023 0.90 0.58 - 0.96 mg/dL Final Estimated Glomerular Filtration Rate Date Value Ref Range Status 06/01/2023 74 >=60 mL/min/1.73m Final Comment: Estimated Glomerular Filtration Rate (eGFR) is calculated using the 2020 CKD-EPI creatinine equation. This equation utilizes serum creatinine, sex, and age as parameters. The creatinine assay has traceable calibration to isotope dilution- mass spectrometry. Refer to KDIGO guidelines for clinical interpretation. In patients with unstable renal function, e.g. those with acute kidney injury, the eGFRmay not accurately reflect actual GFR. P.O.C.T. RESULTS: N/A June 05, [address] PERFORMED: No IV SITE: Ambulatory: A peripheral IV was started in the Left hand with a Angio cath: 24 gauge. POST EXAM PIV STATUS: Discontinued PROCEDURE TYPE: NM INJECT: PET/CT. 12.5 mCi F18 FDG. No other medications given.. ADMINISTRATION TIME: 1330 PATIENT DISCHARGED TO: Ambulatory patient, left NM department area. A Diagnostic radioactive procedure has taken place, with no further precautions necessary other than routine body substance precautions. More information regarding radiation safety can be found using[facility] link: [email or web address] SIGNATURE: DANELLE Deng) PATIENT NAME: Kellie Kang DATE: June 05, 2023 TIME: 1:37 PM PAGER/CONTACT #: documented in this encounterSycamore Medical Center12-04-2023 Miscellaneous Notes* Telephone Encounter - Holly Bennett LISW - 06/05/2023 9:17 AM EST PSYCHOSOCIAL ASSESSMENT Date of Service: June 05, 2023 Kellie Kang is a 58 year old female being seen for initial social work assessment. Diagnosis: Small Cell Lung Cancer New Primary Oncologist: Raven East DO Radiation Oncologist: Caitlin Bravo MD Goals of Care: Curative intent Today's visit includes: self/patient and spouse Family History of Cancer: Mother-Leukemia, age 51 SUPPORT NETWORK: Marital status: Parent(s): Mother is Child/Children: Yes. How many? 3 animal care assistant arrangements needed: No Home Health Provider: No Community Services: No Angie Identified: No Temple/Spirituality: Unknown Are these practices or beliefs that may affect or influence treatment? No EMPLOYMENT/FINANCIAL/HEALTH INSURANCE: Employment: Employed: [employer] Income source: Salary and Supported financially by family Insurance: Private Prescription coverage: Yes Is the patient appropriate for referral to [facility] COBRA Assistance program? No Financial Distress: No : No FOOD INSECURITY Within the past year, have you worried about how you would buy or obtain food? No LIVING ARRANGEMENTS: Type: House- independent Resides with: , Don FUNCTIONAL STATUS: Cognitive limitations: none Physical limitations: none Language barrier: No Hearing Impaired: No Speech Impaired: No Visual Impairments: No Special considerations/accommodations needed: No HEALTH LITERACY: Do you have difficulty understanding medical instructions or other written materials you receive from you doctor or pharmacy? No Do have difficulty filling out medical forms by yourself? No The following interventions were put into place: NA MEDICATION ADHERENCE: Within the past 2 weeks, have you had difficulty remembering to take your medicine? No Within the past 2 weeks, did you ever miss taking your medications for reasons other than forgetting? No The following interventions were put into place: NA MENTAL HEALTH HISTORY: History of combat/trauma: No Substance Use and Treatment History: Pt reports smoking 1 ppd cigarettes for the last 45 years. Shereports recently quitting on 05/27/2023. Issues with: Sleep:No Eating:No Exercising: No Stress Management: No ADVANCE DIRECTIVES/LEGAL DOCUMENTS: Living Will: Not addressed during this encounter Scanned into [employer]: Not addressed during this encounter Health Care Durable Power of [employer]: Not addressed during this encounter Scanned into [employer]: Not addressed during this encounter Guardianship: No Scanned into EPIC:No Reasons Advanced Directives were not Addressed: SW did not address due to patient being overwhelmed COPING STATUS: Coping Strengths: supportive relationships with immediate family and with friends successful managing past crises self advocate strong problem-solving skills able to follow direction consistently over time able to communicate effectively future oriented and able to identify goals Current affect/mood: anxious History of Loss: Yes Adjustment to diagnosis: reflecting understanding, responding appropriately, and accepting help BARRIERS/CARE CHALLENGES: None Are barriers/care challenges identified likely to have an impact on the patient's quality of life during treatment? No INTERVENTIONS/REFERRALS TO BE PROVIDED: Monitor patient response to treatment Communicate pertinent medical/psychosocial information to Cancer Center team Provide emotional support to patient/family Assist with financial support applications Continue follow up as needed Resources and Referrals: Internal: Nikolai Laurent and Financial Navigator External: [facility] CLINICAL IMPRESSION: Kellie is a 58 year old female beginning treatment for small cell lung cancer. She is with 3 older children. No previous personal history with oncology. She presents as anxious and overwhelmed regarding her diagnosis and need for treatment. She is with her who appears to be very supportive and caring. She reports she has smoked 1 ppd of cigarettes for the last 45 years and recently quit smoking on 05/27/2023. Pt is naturally worried about beginning treatment in regards to howshe will feel, how she will afford it, and if she will be cured. SW validated pt's feelings and discussed options for assistance from the clinic as well as outside organizations including financial assistance, patient assistance programs, grants/funding, and emotional support. Pt reports she has a $50 specialist co-pay. reports this is unaffordable to them each time they come and reports we can do it for a bit but I don't want to have to sell the house. SW to refer them to financial navigator for co-pay assistance programs and/or any financial assistance available to them. 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 She reports her boss has been incredibly flexible with her needing time off. Pt and both presented with [facility] paperwork. SW reviewed paperwork with them and discussed what was needed for the forms. Pt's is adamant pt does not return to work while getting treatments. Pt is in agreement. [facility] paperwork also received for who reports he would prefer intermittent leave to assist pt as needed. Kellie presents as anxious and possibly in need of regular emotional support while in treatment.SW oriented pt to SW role and explained all available resources/referrals. SW discussed the [facility] program or referral to psych, outside counseling, etc. Pt declined any referrals at this time and agreed to reach out to SW if needs arise. SW to check in with pt periodically throughout treatment to assess emotional needs and any further services needed. Psychosocial Risk Criteria If positive for one or more of the following risk criteria, follow up every 30 days Age: NA Mental Health: NA Practical Needs: N/A PLAN: SW to follow pt at upcoming appointments and remain in contact with pt throughout treatment to address any psychosocial concerns if needed. Follow up appointment with SW in: KLEBER Nichols documented in this encounterSycamore Medical Center12-01-2023 Miscellaneous Notes* Telephone Encounter - Doup, Belgica, RN - 06/02/2023 3:56 PM EST Met with patient and introduced myself. Patient was given a My Journey binder with chemocare information, office contact information, thermometer, and additional chemotherapy resource booklets. Patient aware this nurse will review on scheduled appointment date. Belgica Rao RN documented in this encounterSycamore Medical Center12-01-2023 History of Present illness Narrative* Raven East DO - 06/02/2023 2:12 PM EST Oncologic problem(s): 1) Limited stage small cell lung cancer. HPI: The patient is a 58-year-old female former smoker who under presented for evaluation of right neck mass. Right lower neck mass for about a month. Saw Dr. Lara who ordered CT neck. She had a CT of the neck with contrast enhancement on 05/12/2023. This study revealed a nodule in the thyroid, right-sided gland measuring 9 x 6 mm. There is heterogeneity versus second nodule in theleft thyroid. Measurements were not rendered. There was right supraclavicular adenopathy, level 4B measuring 4.1 x 2.0 cm. There is mass effect and moderate narrowing of the right jugular vein and anadjacent enlarged lymph node measuring 1.3 x 1.6 cm. There is brachial enlarged lymph nodes measuring 1.3 x 1.3. Note was made of anterior cervical fusion hardware and previous discectomy changes at L5-6. Emphysematous changes were noted in the lung apices. Patient underwent FNA of the right-sided cervical adenopathy on 05/19/2023. Pathology: Positive for malignant cells. 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 Per initial consultation: had Covid. She got symptoms 05/24. Tested positive that day. Sore throat, headache, fever and malaise. Symptoms resolved except fatigue. No change in chronic cough from COPD. Rarely productive. Wheezes ( calls her wheezy). Mild JO. Hasn't had to stop any activity. 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 No issues with stairs, etc. Normal appetite. Neck pain. Pain in right chest (3-4 years; stress test okay). Used to come and go. Now seems to radiate down from the neck mass. COPE in right occipital area. Comes and go for about month. Quit smoking at time of diagnosis. Smoked a ppd for about 45 years. No alcohol. . Three older children. Presents for ongoing oncologic management. Interim history: No subjective change. Had CTs and MRI brain. PAST MEDICAL HISTORY Diagnosis Date COPD (chronic obstructive pulmonary disease) (HCC) Human papillomavirus in conditions classified elsewhere and of unspecified site PAST SURGICAL HISTORY Procedure Laterality Date ANESTHESIA HERNIA REPAIR LOWER ABDOMEN NOS PAST SURGICAL HISTORY OF breast biopsy TOTAL ABDOMINAL HYSTERECT W/WO RMVL TUBE OVARY OVARIES REMAIN ALLERGIES No Known Allergies Current Outpatient Medications Medication Sig LORazepam (ATIVAN) 0.5 mg Take 1 tablet by mouth three times a day as needed for up to 14 days. albuterol HFA (PROVENTIL HFA, VENTOLIN HFA) 90 mcg/actuation inhaler Inhale 2 Puffs as instructed every 4 hours as needed. iv contrast (will be provided with radiology test) CT Chest ABD/PEL-Inject, intravenously, once for1 dose.No IV access, insert saline lock prior to the beginning of sedation, infusion, injection of imaging exam. Discontinue saline lock post exam. If Pt. has a central line or IVAD, may access for administration according to line specific nursing protocol. Once exam is complete flush line and de-access according to line specific nursing protocol in the CT contrast administration guidelines link. enteric contrast (will be provided with radiology test) For CT CHESTABD/PEL W IVCON Routine order Administer, As Directed One Time Only, via Oral, Rectal, both Oral and Rectal, Enteric Tube, Stoma orIndwelling Catheter, Enteric Contrast as designated per enteric contrast guidelines iv contrast (will be provided with radiology test) MRI Brain Inject, intravenously, once for 1 dose.No IV access, insert saline lock prior to beginning of sedation, infusion, injection of imaging exam.Discontinue saline lock post exam. If Pt. has a central line or IVAD, may access for administration according to line specific nursing protocol.Once exam is complete flush line and de-access according to line specific nursing protocol in the MR contrast administration guidelines link fluoxetine hcl(PROZAC 10 MG CAP) Take one(1) capsule daily. (Patient not taking: No sig reported) No current facility-administered medications for this visit. Social History Tobacco Use Smoking status: Former Packs/day: 1.00 Years: 45.00 Additional pack years: 0.00 Total pack years: 45.00 Types: Cigarettes Quit date: 05/27/2023 Years since quittin.0 Smokeless tobacco: Never Vaping Use Vaping Use: Never used Substance Use Topics Alcohol use: No Drug use: No Family History Problem Relation Age of Onset Cancer Mother leukemia Heart Father [place] other (respiratory failure) Sister Genitourinary () Paternal Grandfather Mother age 51 from leukemia. ROS: Constitutional: See above. Neuro: No symptoms of sensory neuropathy. HEENT: No recent change in voice, vision or hearing. Resp: No cough, wheeze of hemoptysis. No shortness of breath at rest. No JO. CVS: No exertional chest pain, PND or orthopnea. No extremity swelling/edema. No symptoms of claudication. No painful or tender varicose veins. GI: No dysgeusia. No symptoms of stomatitis. No dysphagia or odynophagia. No reflux, n/v. IBS--moreconstipation. : No dysuria or gross hematuria. No symptoms of bladder outlet obstruction. Endo: No hot flashes. No polyuria or polydipsia. No heat or cold intolerance. Musculoskeletal: No bone, back, joint and muscular pain. Derm: No current rash. No history of jaundice. No diffuse pruritis. Heme: No unusual bleeding and unexplained bruising. Psych: Anxious. PHYSICAL EXAM: Vitals: Blood pressure 134/74, pulse (!) 58, temperature 36.7 C (98.1 F), temperature source Temporal, weight 73 kg (161 lb), SpO2 98 %. Well-appearing and in no acute distress. EYES: Sclerae are anicteric bilaterally. ENT: Oral mucosa is unremarkable. LYMPHATIC: There is low right-sided cervical/supraclavicular adenopathy. No axillary or inguinal adenopathy. RESPIRATORY: Inspiratory breath sounds are of diminished intensity in all mcelroy. Scattered wheezesthroughout. CARDIOVASCULAR: Rhythm is regular. ABDOMEN: The abdomen is nondistended. No splenomegaly or hepatomegaly. No tenderness. Extremities: No swelling or edema. SKIN: No jaundice or rash. NEUROLOGIC: veneer puller II-XII are grossly intact. No focal motor weakness. MUSCULOSKELETAL: No muscle wasting. ASSESSMENT/PLAN: (C34.90) Small cell lung cancer (HCC) (primary encounter diagnosis) (F41.1, C80.1) Anxiety associated with cancer diagnosis (HCC) Assessment: -The patient is a 58-year-old female former, [id number] smoker with diagnosis of COPD who recently underwent evaluation for low right-sided cervical/supraclavicular adenopathy and was found to havesmall cell carcinoma. -Reviewed results of CTs and MRI brain. -Reviewed with Dr. Bravo. -Limited stage. -Recommended cisplatin/etoposide with concurrent radiation. -I discussed the natural history, treated course, and prognosis of limited stage small cell lung cancer with the patient and her . Explained goal of therapy is cure. -Recommended cisplatin and etoposide with concurrent radiation. -Discussed the rationale, logistics, potential risks (including but not limited to alopecia, fatigue, esophagitis, pneumonitis, cytopenias, high-frequency hearing loss, renal toxicity, nausea and vomiting, diarrhea, infectious complications and the small potential for as a consequence of severe toxicity/complications of therapy), benefits and alternatives, as well as the personnel involved in the administration of cisplatin and etoposide when given with concurrent radiation. I answered her questions in detail and she verbalized understanding and agreed with the recommended therapy. Please see the electronic consent document for details of doses and schedule. -Peg filgrastim not clearly indicated with cycle #1, but will add cycle #2 if delay required since intent will be cure. Plan: -PET scan to help more definitively rule out metastatic disease. -Baseline audiogram. -Rx for dex, olanzapine, Zofran and Compazine sent. -Begin when starts radiation. -Weekly BMP/Mg during therapy. -Lorazepam 0.5 mg every 8 hours as needed anxiety. Portions of this documentation were copied and pasted from previous office visit notes in order to provide a cohesive continuity of the history. The note has been reviewed and edited and updated as necessary. I spent a total of 45 minutes on the date of the service which included preparing to see the patient, [id number] patient care, completing clinical documentation, obtaining and/or reviewing separately obtained history, performing a medically appropriate examination, counseling and educating the pat ient/family/caregiver, ordering medications, tests, or procedures, communicating with other HCPs (not separately reported), independently interpreting results (not separately reported), and communicating results to the patient/family/caregiver. Raven East DO documented in this encounterSy[facility] Center12-01-[facility]23 Nurse Note* Sheela Edwards RN - 06/02/2023 1:09 PM EST Radiation Therapy - Nursing Note (Consult) PATIENT NAME: Kellie Kang PATIENT June 02, 2023 [facility] [place] FACILITY/LOCATION: [place] Chief Complaint: Mets lung cancer Reason for visit: Consult. Referring physician: Internal provider Dr East Subjective Data: see pain assessment Additional Data Do you want to see a Jtac? Yes in future Are you interested in information about fertility? No Status: Post-menopausal hysterectomy 2000 ovaries remain Stress Scale: On a scale of 0 to 10, what number best describes how much distress you have experienced in the past week?(0 being no distress and 10 being extreme distress) 4 Social work notified: Pt denied need to see social problems specialist at this time. SIGNED by: Sheela Edwards RN documented in this encounterSycamore Medical Center12-01-2023 History of Present illness Narrative* Caitlin Bravo MD, MD - 06/02/2023 12:49 PM EST Radiation Oncology - New Patient/Consult Note PATIENT NAME: Kellie Kang PATIENT REQUESTING PROVIDER: Raven East DIAGNOSIS: Limited stage small cell lung cancer. HPI: 58 year old female who presents with above diagnosis, for an opinion regarding the role of radiation therapy in the management of the patient's disease. Final recommendations will be communicated back to the requesting physician by way of the shared medical record, or letter to requesting physician via US mail. 58 year old woman, a former smoker with 45 pack-year history of smoking quitting 3 years ago, presented with right low neck mass for about a month. CT neck on 05/12/23 showed right supraclavicular adenopathy, level 4B measuring 4.1 x 2.0 cm. There is an adjacent enlarged lymph node measuring 1.3 x 1.6 cm. FNA of the right-sided cervical adenopathy on 05/19/2023 showed malignant cells and IHC was consistent with metastatic small cell carcinoma. CT chest on 06/01/23 showed mediastinal adenopathy including a conglomerate enlarged paratracheal lymph node measuring 4.8 x 3.3 cm. Mildly enlarged right hilar lymph node was noted. CT AP was negative for acute pathology. MRI brain was negative for brain metastasis. ALLERGIES No Known Allergies Current Outpatient Medications on File Prior to Visit Medication Sig iv contrast (will be provided with radiology test) CT Chest ABD/PEL-Inject, intravenously, once for1 dose.No IV access, insert saline lock prior to the beginning of sedation, infusion, injection of imaging exam. Discontinue saline lock post exam. If Pt. has a central line or IVAD, may access for administration according to line specific nursing protocol. Once exam is complete flush line and de-access according to line specific nursing protocol in the CT contrast administration guidelines link. enteric contrast (will be provided with radiology test) For CT CHESTABD/PEL W IVCON Routine order Administer, As Directed One Time Only, via Oral, Rectal, both Oral and Rectal, Enteric Tube, Stoma orIndwelling Catheter, Enteric Contrast as designated per enteric contrast guidelines iv contrast (will be provided with radiology test) MRI Brain Inject, intravenously, once for 1 dose.No IV access, insert saline lock prior to beginning of sedation, infusion, injection of imaging exam.Discontinue saline lock post exam. If Pt. has a central line or IVAD, may access for administration according to line specific nursing protocol.Once exam is complete flush line and de-access according to line specific nursing protocol in the MR contrast administration guidelines link LORazepam (ATIVAN) 0.5 mg Take 1 tablet by mouth three times a day as needed for up to 14 days. albuterol HFA (PROVENTIL HFA, VENTOLIN HFA) 90 mcg/actuation inhaler Inhale 2 Puffs as instructed as needed. Every 4-6 hours fluoxetine hcl(PROZAC 10 MG CAP) Take one(1) capsule daily. (Patient not taking: No sig reported) No current facility-administered medications on file prior to visit. 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 No status: Post-menopausal. PAST SURGICAL HISTORY Procedure Laterality Date ANESTHESIA HERNIA REPAIR LOWER ABDOMEN NOS PAST SURGICAL HISTORY OF breast biopsy TOTAL ABDOMINAL HYSTERECT W/WO RMVL TUBE OVARY OVARIES REMAIN FAMILY HISTORY Problem Relation Age of Onset Cancer Mother leukemia Heart Father [place] other (respiratory failure) Sister Genitourinary () Paternal Grandfather Social History Tobacco Use Smoking status: Former Packs/day: 1.00 Years: 45.00 Additional pack years: 0.00 Total pack years: 45.00 Types: Cigarettes Quit date: 05/27/2023 Years since quittin.0 Smokeless tobacco: Never Vaping Use Vaping Use: Never used Substance Use Topics Alcohol use: No Drug use: No COMPLETE REVIEW OF SYSTEMS: GENERAL: feeling well without fatigue, no recent change in weight HEENT: denies COPE, change in hearing or vision, no other ENT complaints NECK: denies swelling or pain in neck RESPIRATORY: h/o COPD and slight shortness of breath with exertion. Dry cough. CARDIOVASCULAR: no chest pain, no palpitations GI: Irritable bowel syndrome. : urination is normal MUSCULOSKELETAL: denies any painful or swollen joints, no muscle aches SKIN: h/o recent episode of shingles now fully recovered. HEMATOLOGY/LYMPHOLOGY: negative for prolonged bleeding, no swollen lymph nodes NEURO: no numbness or paresthesias and no weakness of the extremities PHYSICAL EXAM: VS: BP 125/65 Pulse 60 Temp 36.8 C (98.3 F) (Temporal) Wt 73.3 kg (161 lb 8 oz) SpO2 98% BMI 27.72 kg/m KPS: 90 General Appearance: Alert and oriented. No acute distress. HEENT: NCAT. Sclera anicteric. EOMI. Neck: Normal ROM. Right supraclavicular mass. Chest: No respiratory distress. Musculoskeletal: Normal ROM in extremities. Neuro: Speech fluent. Gait normal. No focal deficits. Hematologic: No signs of active bleeding. RADIOLOGY/LABORATORY DATA: see HPI ASSESSMENT AND PLAN: 58 year old woman with limited stage small cell lung cancer. She is scheduled to have a staging PET scan on Monday. If negative, I recommend chemoradiation treatment. I explained the rationale, benefits, alternative management options and potential complications of radiation treatment to the patient and she understands and agrees to proceed. It was explained and understood that other personnel such as radiation therapists, digester operator helper, and physicists will partici underwood in planning and delivery of radiation treatment. Permanent tattoo soto will be placed to aid with positioning for daily treatment and the patient consented. Patient will have a simulation procedure after her PET scan. Thank you very much for allowing us to participate in her care. Signed by: Caitlin Bravo MD cc: Chinyere Lara ([facility]) [address] [place] [address] [place] [address] Raven East [address] [facility] [id number] documented in this encounterSycamore Medical Center11-30-2023 History of Present illness Narrative* Yasmin Hankins, RT(R) - 06/01/2023 3:20 PM EST Radiology Service Progress Note DATE OF SERVICE: June 01, 2023 TIME: 3:00 PM PATIENT IDENTITY VERIFICATION COMPLETED USING TWO (2) STANDARD IDENTIFIERS: Name and Date of confirmed by patient verbally. FALL SCREENING: Has the patient had 2 falls in the last year or 1 fall with injury or currently using an Ambulatory Assistive Device (Walker, Cane, Wheelchair, Crutches, etc.)? No PATIENT GENDER DATA: Female. status: : No status: NO. PATIENT RELEVANT IMPLANT DATA REVIEWED: Yes ALLERGIES: Reviewed and unchanged CONTRAST ALLERGY: NO. EXAM: CT -CONTRAST INDUCED NEPHROPATHY RISK FACTORS: Not applicable CREATININE: Creatinine Date Value Ref Range Status 06/01/2023 0.90 0.58 - 0.96 mg/dL Final Estimated Glomerular Filtration Rate Date Value Ref Range Status 06/01/2023 74 >=60 mL/min/1.73m Final Comment: Estimated Glomerular Filtration Rate (eGFR) is calculated using the 2020 CKD-EPI creatinine equation. This equation utilizes serum creatinine, sex, and age as parameters. The creatinine assay has traceable calibration to isotope dilution- mass spectrometry. Refer to KDIGO guidelines for clinical interpretation. In patients with unstable renal function, e.g. those with acute kidney injury, the eGFRmay not accurately reflect actual GFR. P.O.C.T. RESULTS: POC done: Yes, See Lab Tab June 01, 2023 TREATMENT: N/A PERIPHERAL IV DATA: Ambulatory: A peripheral IV was started in the Left antecubital site with a Angio cath: 22 gauge. RADIOLOGY DEPARTMENT: CT; Exam(s) Completed: Chest Abdomen Pelvis SIGNATURE: RT Tomeka(R) PATIENT NAME: Kellie Kang DATE: June 01, 2023 TIME: 3:00 PM documented in this encounterSycamore Medical Center11-30-2023 History of Present illness Narrative* Dafne Toro RT(R) - 06/01/2023 12:45 PM EST Radiology Service Progress Note DATE OF SERVICE: June 01, 2023 TIME: 12:59 PM PATIENT IDENTITY VERIFICATION COMPLETED USING TWO (2) STANDARD IDENTIFIERS: Name and Date of confirmed by patient verbally. FALL SCREENING: Has the patient had 2 falls in the last year or 1 fall with injury or currently using an Ambulatory Assistive Device (Walker, Cane, Wheelchair, Crutches, etc.)? No PATIENT GENDER DATA: Female. status: : No status: NO. PATIENT RELEVANT IMPLANT DATA REVIEWED: Yes ALLERGIES: Reviewed and unchanged CONTRAST ALLERGY: NO. EXAM: MRI - CONTRAST TYPE: GROUP II PERIPHERAL IV DATA: Ambulatory: A peripheral IV was started in the Left antecubital site with a Angio cath: 22 gauge. RADIOLOGY DEPARTMENT: MR; Exam(s) Completed: Head: Routine Brain SIGNATURE: RT Taj(Ranjith) PATIENT NAME: Kellie Kang DATE: June 01, 2023 TIME: 12:59 PM documented in this encounterSycamore Medical Center11-30-2023 Miscellaneous Notes* Result Encounter Note - Masci, Raven A, DO - 06/01/2023 12:45 PM EST Can let her know the MRI of the brain showed no evidence of cancer in or around the brain. Raven East DO documented in this encounterSycamore Medical Center11-30-2023 History of Present illness Narrative* Raven East DO - 06/01/2023 10:41 AM EST Patient referred by Dr. Deng for metastatic small cell cancer. The impression and plan will be communicated by way of the shared electronic record or faxed under separate cover letter. HPI: The patient is a 58-year-old female former smoker who under presented for evaluation of right neck mass. Right lower neck mass for about a month. Saw Dr. Lara who ordered CT neck. She had a CT of the neck with contrast enhancement on 05/12/2023. This study revealed a nodule in the thyroid, right-sided gland measuring 9 x 6 mm. There is heterogeneity versus second nodule in theleft thyroid. Measurements were not rendered. There was right supraclavicular adenopathy, level 4B measuring 4.1 x 2.0 cm. There is mass effect and moderate narrowing of the right jugular vein and anadjacent enlarged lymph node measuring 1.3 x 1.6 cm. There is brachial enlarged lymph nodes measuring 1.3 x 1.3. Note was made of anterior cervical fusion hardware and previous discectomy changes at L5-6. Emphysematous changes were noted in the lung apices. Patient underwent FNA of the right-sided cervical adenopathy on 05/19/2023. Pathology: Positive for malignant cells. 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 had Covid. She got symptoms 05/24. Tested positive that day. Sore throat, headache, fever and malaise. Symptoms resolved except fatigue. No change in chronic cough from COPD. Rarely productive. Wheezes ( calls her wheezy). Mild JO. Hasn't had to stop any activity. 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 No issues with stairs, etc. Normal appetite. Neck pain. Pain in right chest (3-4 years; stress test okay). Used to come and go. Now seems to radiate down from the neck mass. COPE in right occipital area. Come and go for about month. Quit smoking 3 days ago. Smoked a ppd for about 45 years. No alcohol. . Three older children. PAST MEDICAL HISTORY Diagnosis Date COPD (chronic obstructive pulmonary disease) (HCC) Human papillomavirus in conditions classified elsewhere and of unspecified site PAST SURGICAL HISTORY Procedure Laterality Date ANESTHESIA HERNIA REPAIR LOWER ABDOMEN NOS PAST SURGICAL HISTORY OF breast biopsy TOTAL ABDOMINAL HYSTERECT W/WO RMVL TUBE OVARY OVARIES REMAIN ALLERGIES No Known Allergies Current Outpatient Medications Medication Sig albuterol HFA (PROVENTIL HFA, VENTOLIN HFA) 90 mcg/actuation inhaler Inhale 2 Puffs as instructed as needed. Every 4-6 hours fluoxetine hcl(PROZAC 10 MG CAP) Take one(1) capsule daily. (Patient not taking: No sig reported) No current facility-administered medications for this visit. Social History Tobacco Use Smoking status: Former Packs/day: 1 Types: Cigarettes Smokeless tobacco: Never Vaping Use Vaping Use: Never used Substance Use Topics Alcohol use: No Drug use: No Family History Problem Relation Age of Onset Cancer Mother leukemia Heart Father [place] other (respiratory failure) Sister Genitourinary () Paternal Grandfather Mother age 51 from leukemia. ROS: Constitutional: See above. Neuro: No symptoms of sensory neuropathy. HEENT: No recent change in voice, vision or hearing. Resp: No cough, wheeze of hemoptysis. No shortness of breath at rest. No JO. CVS: No exertional chest pain, PND or orthopnea. No extremity swelling/edema. No symptoms of claudication. No painful or tender varicose veins. GI: No dysgeusia. No symptoms of stomatitis. No dysphagia or odynophagia. No reflux, n/v. IBS--moreconstipation. : No dysuria or gross hematuria. No symptoms of bladder outlet obstruction. Endo: No hot flashes. No polyuria or polydipsia. No heat or cold intolerance. Musculoskeletal: No bone, back, joint and muscular pain. Derm: No current rash. No history of jaundice. No diffuse pruritis. Heme: No unusual bleeding and unexplained bruising. Psych: Anxious. PHYSICAL EXAM: Vitals: Blood pressure 122/78, pulse 64, temperature 36.6 C (97.8 F), temperature source Tympanic, resp. rate 16, height 162.6 cm (5' 4), weight 73.3 kg (161 lb 8 oz), SpO2 97 %. Well-appearing and in no acute distress. EYES: Sclerae are anicteric bilaterally. ENT: Oral mucosa is unremarkable. LYMPHATIC: There is low right-sided cervical/supraclavicular adenopathy. No axillary or inguinal adenopathy. RESPIRATORY: Inspiratory breath sounds are of diminished intensity in all mcelroy. Scattered wheezesthroughout. CARDIOVASCULAR: Rhythm is regular. ABDOMEN: The abdomen is nondistended. No splenomegaly or hepatomegaly. No tenderness. Extremities: No swelling or edema. SKIN: No jaundice or rash. NEUROLOGIC: veneer puller II-XII are grossly intact. No focal motor weakness. MUSCULOSKELETAL: No muscle wasting. ASSESSMENT/PLAN: (C34.90) Small cell lung cancer (HCC) (primary encounter diagnosis) (F41.1, C80.1) Anxiety associated with cancer diagnosis (HCC) Assessment: -The patient is a 58-year-old female former, 96-irva-plog smoker with diagnosis of COPD who recently underwent evaluation for low right-sided cervical/supraclavicular adenopathy and was found to havesmall cell carcinoma. -Discussed with the patient and her most likely primary site is lung. She has not yet had staging workup. Potentially could still be limited stage. I discussed approach to treatment for both limited stage and extensive stage small cell lung cancer. Answered all of their questions to their satisfaction. Plan: -Encouraged her not to resume smoking. -CT scan chest, abdomen pelvis. -MRI brain. -PET scan if any unclear findings on conventional CT. -Radiation oncology consultation. -Rx lorazepam 0.5 mg every 8 hours as needed anxiety. -See back after scans completed. I spent a total of 60 minutes on the date of the service which included preparing to see the patient, [id number] patient care, completing clinical documentation, obtaining and/or reviewing separately obtained history, performing a medically appropriate examination, counseling and educating the pat ient/family/caregiver, ordering medications, tests, or procedures, communicating with other HCPs (not separately reported), and communicating results to the patient/family/caregiver. Raven East DO documented in this encounterSycamore Medical Center11-29-2023 Miscellaneous Notes* Telephone Encounter - Rena Espino - 05/31/2023 10:03 AM EST Scheduled. Spoke with patient to update insurance information. Rena Espino * Telephone Encounter - Nelly Bernardo LPN - 05/31/2023 8:54 AM EST Please schedule patient with Dr. East tomorrow, 06/01/2023, @ 10:10. She knows to arrive by 9:45. Nelly Bernardo LPN * Telephone Encounter - Raven East DO - 05/31/2023 8:30 AM EST This patient is high-priority. New diagnosis of extensive stage small cell carcinoma. Check with Latonya to see if patients can be pulled from either my schedule or Dr. De Jesus's schedule to free up time to get her in by early next week. Raven East DO * Telephone Encounter - Nelly Bernardo LPN - 05/30/2023 3:15 PM EST Referral received and placed in Dr. East's mailbox for review. Nelly Bernardo LPN * Telephone Encounter - Juliocesar Apple - 05/30/2023 2:53 PM EST Patient called stating Dr. Ra HORVATH is sending referral for patient. documented in this encounterSycamore Medical CenterEvaluation noteNo assessment information availableWooBarnesville Hospital Hospital Work Phone: Evaluation note* Diagnosis Small cell lung cancer (HCC)- Primary Malignant neoplasm of bronchus and lung, unspecified site Malignant neoplasm of unspecified part of unspecified bronchus or lung (HCC) Anxiety associated with cancer diagnosis (HCC) [facility]* Diagnosis Malignant neoplasm of unspecified part of unspecified bronchus or lung (HCC) Small cell lung cancer (HCC) Malignant neoplasm of bronchus and lung, unspecified site [facility]* Diagnosis Malignant neoplasm of unspecified part of unspecified bronchus or lung (HCC) Small cell lung cancer (HCC) Malignant neoplasm of bronchus and lung, unspecified site [facility]* Diagnosis Small cell lung cancer, unspecified laterality (HCC)- Primary 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) Secondary and unspecified malignant neoplasm of lymph nodes of head, face, and neck [facility]* Diagnosis Small cell lung cancer (HCC)- Primary Malignant neoplasm of bronchus and lung, unspecified site Malignant neoplasm of unspecified part of unspecified bronchus or lung (HCC) [facility]* Diagnosis Malignant neoplasm of unspecified part of unspecified bronchus or lung (HCC)- Primary Small cell lung cancer (HCC) Malignant neoplasm of bronchus and lung, unspecified site [facility]* Diagnosis Encounter for education- Primary Counseling NOS [facility]* Diagnosis Malignant neoplasm of unspecified part of unspecified bronchus or lung (HCC)- Primary Small cell lung cancer (HCC) Malignant neoplasm of bronchus and lung, unspecified site [facility]* Diagnosis Small cell lung cancer (HCC)- Primary Malignant neoplasm of bronchus and lung, unspecified site 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) Secondary and unspecified malignant neoplasm of lymph nodes of head, face, and neck [facility] Diagnosis Small cell lung cancer, unspecified laterality (HCC)- Primary 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) Secondary and unspecified malignant neoplasm of lymph nodes of head, face, and neck [facility] Diagnosis Radiotherapy follow-up- Primary Radiotherapy follow-up examination Small cell lung cancer (HCC) Malignant neoplasm of bronchus and lung, unspecified site [facility] Diagnosis Small cell lung cancer, unspecified laterality (HCC)- Primary 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) Secondary and unspecified malignant neoplasm of lymph nodes of head, face, and neck Antineoplastic chemotherapy induced anemia LUCIANA (acute kidney injury) (HCC) Acute kidney failure, unspecified [facility] Diagnosis Small cell lung cancer, unspecified laterality (HCC)- Primary 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) Secondary and unspecified malignant neoplasm of lymph nodes of head, face, and neck [facility] Diagnosis Malignant neoplasm of unspecified part of unspecified bronchus or lung (HCC)- Primary 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) Secondary and unspecified malignant neoplasm of lymph nodes of head, face, and neck Small cell lung cancer (HCC) Malignant neoplasm of bronchus and lung, unspecified site LUCIANA (acute kidney injury) (HCC) Acute kidney failure, unspecified [facility]* Diagnosis Small cell lung cancer, unspecified laterality (HCC)- Primary [facility]* Diagnosis Small cell lung cancer, unspecified laterality (HCC)- Primary 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) Secondary and unspecified malignant neoplasm of lymph nodes of head, face, and neck [facility]* Diagnosis Small cell lung cancer, unspecified laterality (HCC)- Primary 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) Secondary and unspecified malignant neoplasm of lymph nodes of head, face, and neck [facility]* Diagnosis Small cell lung cancer (HCC)- Primary Malignant neoplasm of bronchus and lung, unspecified site 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) Secondary and unspecified malignant neoplasm of lymph nodes of head, face, and neck Anemia due to 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 [facility]* Diagnosis 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 Secondary and unspecified malignant neoplasm of lymph nodes of head, face, and neck Small cell lung cancer, unspecified laterality (HCC) [facility] Diagnosis 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 Secondary and unspecified malignant neoplasm of lymph nodes of head, face, and neck Small cell lung cancer, unspecified laterality (HCC) [facility] Diagnosis Malignant neoplasm of unspecified part of unspecified bronchus or lung (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) Secondary and unspecified malignant neoplasm of lymph nodes of head, face, and neck Small cell lung cancer (HCC) Malignant neoplasm of bronchus and lung, unspecified site [facility] Diagnosis Malignant neoplasm of unspecified part of unspecified bronchus or lung (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) Secondary and unspecified malignant neoplasm of lymph nodes of head, face, and neck Small cell lung cancer (HCC) Malignant neoplasm of bronchus and lung, unspecified site [facility] Diagnosis Small cell lung cancer, unspecified laterality (HCC)- Primary 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) Secondary and unspecified malignant neoplasm of lymph nodes of head, face, and neck LUCIANA (acute kidney injury) (HCC) Acute kidney failure, unspecified Antineoplastic chemotherapy induced anemia Anemia due to 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 [facility] Diagnosis Small cell lung cancer (HCC)- Primary Malignant neoplasm of bronchus and lung, unspecified site [facility] Diagnosis Small cell lung cancer (HCC)- Primary Malignant neoplasm of bronchus and lung, unspecified site [facility]* Diagnosis Small cell lung cancer (HCC)- Primary Malignant neoplasm of bronchus and lung, unspecified site [facility]* Diagnosis Small cell lung cancer (HCC)- Primary Malignant neoplasm of bronchus and lung, unspecified site [facility]* Diagnosis Small cell lung cancer (HCC)- Primary Malignant neoplasm of bronchus and lung, unspecified site [facility] Diagnosis Small cell lung cancer (HCC)- Primary Malignant neoplasm of bronchus and lung, unspecified site 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) Secondary and unspecified malignant neoplasm of lymph nodes of head, face, and neck Chemotherapy-induced neuropathy (HCC) Polyneuropathy due to drugs [facility]* Diagnosis Radiotherapy follow-up- Primary Radiotherapy follow-up examination Small cell lung cancer (HCC) Malignant neoplasm of bronchus and lung, unspecified site [facility]* Diagnosis Small cell lung cancer (HCC) Malignant neoplasm of bronchus and lung, unspecified site 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) Secondary and unspecified malignant neoplasm of lymph nodes of head, face, and neck [facility] Diagnosis Small cell lung cancer (HCC)- Primary Malignant neoplasm of bronchus and lung, unspecified site 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) Secondary and unspecified malignant neoplasm of lymph nodes of head, face, and neck [facility] Diagnosis Small cell lung cancer, unspecified laterality (HCC)- Primary 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) Secondary and unspecified malignant neoplasm of lymph nodes of head, face, and neck Orthostasis Orthostatic hypotension [facility]* Diagnosis Small cell lung cancer, unspecified laterality (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) Secondary and unspecified malignant neoplasm of lymph nodes of head, face, and neck documented [facility]* Diagnosis Small cell lung cancer (HCC) Malignant neoplasm of bronchus and lung, unspecified site 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) Secondary and unspecified malignant neoplasm of lymph nodes of head, face, and neck [facility]* Diagnosis Small cell lung cancer, unspecified laterality (HCC)- Primary Orthostasis Orthostatic hypotension [facility]* Diagnosis Orthostatic hypotension- Primary Small cell carcinoma of lung, unspecified laterality, unspecified part of lung (HCC) [facility]* Diagnosis Malignant neoplasm of unspecified part of unspecified bronchus or lung (HCC)- Primary Small cell lung cancer, unspecified laterality (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) Secondary and unspecified malignant neoplasm of lymph nodes of head, face, and neck [facility] Diagnosis Orthostasis- Primary Orthostatic hypotension Small cell lung cancer, unspecified laterality (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) Secondary and unspecified malignant neoplasm of lymph nodes of head, face, and neck [facility]* Diagnosis SVT (supraventricular tachycardia) (HCC)- Primary Other specified cardiac dysrhythmias Ventricular tachycardia (HCC) Paroxysmal ventricular tachycardia Orthostasis Orthostatic hypotension Small cell lung cancer, unspecified laterality (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) Secondary and unspecified malignant neoplasm of lymph nodes of head, face, and neck [facility]* Diagnosis Ventricular tachycardia (HCC) Paroxysmal ventricular tachycardia [facility] Diagnosis Ventricular tachycardia (HCC) Paroxysmal ventricular tachycardia [facility]* Diagnosis Small cell lung cancer, unspecified laterality (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) Secondary and unspecified malignant neoplasm of lymph nodes of head, face, and neck documented [facility]* Diagnosis Small cell lung cancer, unspecified laterality (HCC)- Primary Dyspnea and respiratory abnormalities Other dyspnea and respiratory abnormality Acute right-sided low back pain without sciatica [facility] Diagnosis Small cell lung cancer, unspecified laterality (HCC) Acute right-sided low back pain without sciatica [facility] Diagnosis Small cell lung cancer, unspecified laterality (HCC) Dyspnea and respiratory abnormalities Other dyspnea and respiratory abnormality [facility]* Diagnosis Flank pain- Primary Abdominal pain, unspecified site [facility]* Diagnosis Acute right-sided low back pain without sciatica- Primary [facility]* Diagnosis Acute right-sided low back pain without sciatica- Primary [facility]* Diagnosis Encounter for follow-up surveillance of lung cancer- Primary Unspecified follow-up examination Small cell lung cancer, unspecified laterality (HCC) Dyspnea and respiratory abnormalities Other dyspnea and respiratory abnormality [facility]* Diagnosis Acute right-sided low back pain without sciatica- Primary [facility]* Diagnosis Acute right-sided low back pain without sciatica- Primary [facility]* Diagnosis Acute right-sided low back pain without sciatica- Primary [facility]* Diagnosis Small cell lung cancer, unspecified laterality (HCC)- Primary Acute right-sided low back pain without sciatica 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) Secondary and unspecified malignant neoplasm of lymph nodes of head, face, and neck Chronic midline low back pain without sciatica [facility]* Diagnosis Chronic midline low back pain without sciatica Small cell lung cancer, unspecified laterality (HCC) [facility]* Diagnosis Acute right-sided low back pain without sciatica- Primary [facility]* Diagnosis Small cell lung cancer (HCC) Malignant neoplasm of bronchus and lung, unspecified site 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) Secondary and unspecified malignant neoplasm of lymph nodes of head, face, and neck Acute right-sided low back pain without sciatica [facility]* Diagnosis Encounter for follow-up surveillance of lung cancer Unspecified follow-up examination Small cell lung cancer, unspecified laterality (HCC) Dyspnea and respiratory abnormalities Other dyspnea and respiratory abnormality [facility] Diagnosis 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) Secondary and unspecified malignant neoplasm of lymph nodes of head, face, and neck [facility]* Diagnosis 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) Secondary and unspecified malignant neoplasm of lymph nodes of head, face, and neck [facility]* Diagnosis 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) Secondary and unspecified malignant neoplasm of lymph nodes of head, face, and neck 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) documented in this encounter [facility] note* Diagnosis 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) Secondary and unspecified malignant neoplasm of lymph nodes of head, face, and neck Memory loss Confusion Unspecified psychosis Malaise and fatigue Other malaise and fatigue 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) documented in this encounter [facility] note* Diagnosis Malaise and fatigue Other malaise and fatigue documented in this encounter [facility] note* Diagnosis 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)- Primary documented in this encounter [facility] note* Diagnosis 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) Secondary and unspecified malignant neoplasm of lymph nodes of head, face, and neck Memory loss Confusion Unspecified psychosis documented in this encounter [facility] for referral (narrative)* Diagnostic Procedure Only (Urgent) - Closed Specialty Diagnoses / Procedures Referred By Contac t Referred To Contact MOLECULAR & FUNCTIONAL IMAGING Diagnoses Malignant neoplasm of unspecified part of unspecified bronchus or lung (HCC) Procedures NM PET/CT SKULL-THIGH INITIAL PET IMAGING CT ATTENUATION SKULL BASE MID-THIGH Caitlin Bravo MD, [address] [place] [address] Molecular & Functional Imaging [address] [place] [address] Referral ID Status Reason Start Date Expiration Date V isits Requested Visits Authorized [id number] Closed Auto-Generate d Referral 06/02/2023 07/01/2024 1 1 * Diagnostic Procedure Only (Urgent) - Pending Review Specialty Diagnoses / Procedures Referred By Contac t Referred To Contact MOLECULAR & FUNCTIONAL IMAGING Diagnoses Malignant neoplasm of unspecified part of unspecified bronchus or lung (HCC) Procedures NM PET/CT WHOLE BODY INITIAL PET IMAGING FOR CT ATTENUATION WHOLE BODY Caitlin Bravo MD, MD [address] [place] [address] Molecular & Functional Imaging [address] [place] [address] Referral ID Status Reason Start Date Expiration Date Visits Requested Visits Authorized [id number] Pending Review Auto-Generat ed Referral 06/02/2023 07/01/2024 1 1 [facility] for referral (narrative)* Outpatient Procedure (Routine) - Authorized Specialty Diagnoses / Procedures Referred By Contac t Referred To Contact HEART [facility]ASCULAR [place] Diagnoses Ventricular tachycardia (HCC) Procedures ECHO ECHO TTHRC R-T 2D W/WOM-MODE COMPL SPEC&COLR D Neptali Lake MD [address] [place] [id number] [facility] [place][Note 2] Vascular [place] [address] [place] [id number] Referral ID Status Reason Start Date Expiration Date Visits Requested Visits Authorized [id number] Authorized Auto-Generat ed Referral 02/21/2024 02/20/2025 1 1 * Diagnostic Procedure Only (Routine) - Pending Review Specialty Diagnoses / Procedures Referred By Contac t Referred To Contact MOLECULAR & FUNCTIONAL IMAGING Diagnoses Ventricular tachycardia (HCC) Procedures NM CARDIAC PERF STRESS/PHARM MYOCARDIAL SPECT MULTIPLE STUDIES Neptali Lake MD [address] [place] [address] Molecular [facility] Functional [facility] [address] [place] [address] Referral ID Status Reason Start Date Expiration Date Visits Requested Visits Authorized [id number] Pending Review Auto-Generat ed Referral 02/21/2024 03/22/2025 1 1 [facility] for referral (narrative)* Outpatient Procedure (Routine) - Closed Specialty Diagnoses / Procedures Referred By Contac t Referred To Contact [facility] VASCULAR [place] Diagnoses Ventricular tachycardia (HCC) Procedures ECHO ECHO TTHRC R-T 2D W/WOM-MODE COMPL SPEC&COLR D Neptali Lake MD [address] [place] [address] Heart And Vascular [place] [address] [place] [address] Referral ID Status Reason Start Date Expiration Date V isits Requested Visits Authorized [id number] Closed Auto-Generate d Referral 02/21/2024 02/20/2025 1 1 [facility] for referral (narrative)* Diagnostic Procedure Only (Routine) - Closed Specialty Diagnoses / Procedures Referred By Contac t Referred To Contact MOLECULAR & FUNCTIONAL IMAGING Diagnoses Ventricular tachycardia (HCC) Procedures NM CARDIAC PERF STRESS/PHARM MYOCARDIAL SPECT MULTIPLE STUDIES Neptali Lake MD [address] [place] [address] Molecular [facility] Functional Imaging [address] [place] [address] Referral ID Status Reason Start Date Expiration Date V isits Requested Visits Authorized [id number] Closed Auto-Generate d Referral 02/26/2024 08/23/2024 2 2 T [facility] for referral (narrative)* Diagnostic Procedure Only (Routine) - Closed Specialty Diagnoses / Procedures Referred By Contac t Referred To Contact CT IMAGING Diagnoses Small cell lung cancer, unspecified laterality (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) Procedures CT NECK SOFT TISSUE W IVCON CT SOFT TISSUE NECK W/CONTRAST MATERIAL CT ABD & PELVIS W/CONTRAST DIAGNOSTIC COMPUTED TOMOGRAPHY THORAX W/CONTRAST Raven East DO [address] [place] [address] [place] [id number] Referral ID Status Reason Start Date Expiration Date V isits Requested Visits Authorized [id number] Closed Auto-Generate d Referral 01/02/2024 10/02/2024 1 1 [facility] for referral (narrative)No reason for referral information [facility] Phone: Reason for visit Narrative* Outpatient Procedure (Routine) - Closed Specialty Diagnoses / Procedures Referred By Contac t Referred To Contact [facility] Diagnoses Ventricular tachycardia (HCC) Procedures ECHO ECHO TTHRC R-T 2D W/WOM-MODE COMPL SPEC&COLR D Neptali Lake MD [address] [place] [address] Heart And Vascular [place] [address] [place] [address] Referral ID Status Reason Start Date Expiration Date V isits Requested Visits Authorized [id number] Closed Auto-Generate d Referral 02/21/2024 02/20/2025 1 1 [facility] for visit Narrative* Diagnostic Procedure Only (Routine) - Closed Specialty Diagnoses / Procedures Referred By Vicenteac t Referred To Contact MOLECULAR & FUNCTIONAL IMAGING Diagnoses Ventricular tachycardia (HCC) Procedures NM CARDIAC PERF STRESS/PHARM MYOCARDIAL SPECT MULTIPLE STUDIES Neptali Lake MD [address] [place] [address] Molecular & Functional Imaging [address] [place] [address] Referral ID Status Reason Start Date Expiration Date V isits Requested Visits Authorized [id number] Closed Auto-Generate d Referral 02/26/2024 08/23/2024 2 2 [facility] for visit Narrative* Diagnostic Procedure Only (Routine) - Closed Specialty Diagnoses / Procedures Referred By Contac t Referred To Contact XR IMAGING Diagnoses Small cell lung cancer, unspecified laterality (HCC) Acute right-sided low back pain without sciatica Procedures XR LUMBAR LIMITED 2V AP/LAT RADEX SPINE LUMBOSACRAL 2/3 VIEWS Raven East DO [address] [place] [address] [place] [id number] Referral ID Status Reason Start Date Expiration Date V isits Requested Visits Authorized [id number] Closed Auto-Generate d Referral 05/02/2024 06/01/2025 1 1 [facility] for visit Narrative* Diagnostic Procedure Only (Routine) - Closed Specialty Diagnoses / Procedures Referred By Vicenteac t Referred To Contact XR IMAGING Diagnoses Chronic midline low back pain without sciatica Small cell lung cancer, unspecified laterality (HCC) Procedures XR LUMBAR LIMITED 2V AP/LAT RADEX SPINE LUMBOSACRAL 2/3 VIEWS Raven East, DO [address] [place] [address] Phone: tel: fax: [place] [address] Referral ID Status Reason Start Date Expiration Date V isits Requested Visits Authorized [id number] Closed Auto-Generate d Referral 08/27/2024 09/26/2025 1 1 [facility] for visit Narrative* MRI/CT (Urgent) - Closed Specialty Diagnoses / Procedures [facility] To Contact MR IMAGING Diagnoses Small cell lung cancer (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) Acute right-sided low back pain without sciatica Procedures MRI LUMBAR SPINE WO/W IVCON MRI SPINAL CANAL LUMBAR W/O & W/CONTR MATRL Raven East, DO [address] [place] [address] Phone: tel: fax: [place] [address] Referral ID Status Reason Start Date Expiration Date V isits Requested Visits Authorized [id number] Closed Auto-Generate d Referral 08/28/2024 02/24/2025 1 1 [facility] for visit Narrative* MRI/CT (Routine) - Closed Specialty Diagnoses / Procedures [facility] To [facility] CT [facility] Diagnoses Encounter for follow-up surveillance of lung cancer Small cell lung cancer, unspecified laterality (HCC) Dyspnea and respiratory abnormalities Procedures CT NECK SOFT TISSUE W IVCON CT SOFT TISSUE NECK W/CONTRAST MATERIAL Xiao Perez APRN.[facility] [address] [place] [address] Phone: tel: fax: [place] [address] Referral ID Status Reason Start Date Expiration Date V isits Requested Visits Authorized [id number] Closed Auto-Generate d Referral 10/11/2024 04/09/2025 1 1 [facility] for visit Narrative* MRI/CT (Routine) - Closed Specialty Diagnoses / Procedures Referred By Lo chew Referred To Contact CT IMAGING Diagnoses 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) Procedures CT ABD/PEL W IVCON CT ABD & PELVIS W/CONTRAST Raven East, DO [address] [place] [address] Phone: tel: fax: [place] [address] Referral ID Status Reason Start Date Expiration Date V isits Requested Visits Authorized [id number] Closed Auto-Generate d Referral 01/30/2025 07/29/2025 1 1 [facility] for visit Narrative* MRI/CT (Routine) - Closed Specialty Diagnoses / Procedures Referred By Lo chew Referred To Contact MR IMAGING Diagnoses 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 Cancer Status:Active Comments:Mother. Leukemia Coronary Artery Disease Status:Active Comments :Father. Hypertension Status:Active Comments:Father. Mother. Hypothyroidism Status:Active Comments:half br other w hypothyroid Osteoarthritis Status:Active Comments:Mother. Autoimmune disease Status:Active Comments:Son. Cancer Status:Active Comments:Mother. Leukemia Coronary Artery Disease Status:Active Comments :Father. Hypertension Status:Active Comments:Father. Mother. Hypothyroidism Status:Active Comments:half br other w hypothyroid Osteoarthritis Status:Active Comments:Mother. Autoimmune disease Status:Active Comments:Son. Cancer Status:Active Comments:Mother. Leukemia Coronary Artery Disease Status:Active Comments :Father. Hypertension Status:Active Comments:Father. Mother. Hypothyroidism Status:Active Comments:half br other w hypothyroid Osteoarthritis Status:Active Comments:Mother. Autoimmune disease Status:Active Comments:Son. Cancer Status:Active Comments:Mother. Leukemia Coronary Artery Disease Status:Active Comments :Father. Hypertension Status:Active Comments:Father. Mother. Hypothyroidism Status:Active Comments:half br other w hypothyroid Osteoarthritis Status:Active Comments:Mother. Autoimmune disease Status:Active Comments:Son. Cancer Status:Active Comments:Mother. Leukemia Coronary Artery Disease Status:Active Comments :Father. Hypertension Status:Active Comments:Father. Mother. Hypothyroidism Status:Active Comments:half br other w hypothyroid Osteoarthritis Status:Active Comments:Mother. Autoimmune disease Status:Active Comments:Son. Cancer Status:Active Comments:Mother. Leukemia Coronary Artery Disease Status:Active Comments :Father. Hypertension Status:Active Comments:Father. Mother. Hypothyroidism Status:Active Comments:half br other w hypothyroid Osteoarthritis Status:Active Comments:Mother. Autoimmune disease Status:Active Comments:Son. Cancer Status:Active Comments:Mother. Leukemia Coronary Artery Disease Status:Active Comments :Father. Hypertension Status:Active Comments:Father. Mother. Hypothyroidism Status:Active Comments:half br other w hypothyroid Osteoarthritis Status:Active Comments:Mother. Autoimmune disease Status:Active Comments:Son. Cancer Status:Active Comments:Mother. Leukemia Coronary Artery Disease Status:Active Comments :Father. Hypertension Status:Active Comments:Father. Mother. Hypothyroidism Status:Active Comments:half br other w hypothyroid Osteoarthritis Status:Active Comments:Mother. Autoimmune disease Status:Active Comments:Son. Cancer Status:Active Comments:Mother. Leukemia Coronary Artery Disease Status:Active Comments :Father. Hypertension Status:Active Comments:Father. Mother. Hypothyroidism Status:Active Comments:half br other w hypothyroid Osteoarthritis Status:Active Comments:Mother. Autoimmune disease Status:Active Comments:Son. Cancer Status:Active Comments:Mother. Leukemia Coronary Artery Disease Status:Active Comments :Father. Hypertension Status:Active Comments:Father. Mother. Hypothyroidism Status:Active Comments:half br other w hypothyroid Osteoarthritis Status:Active Comments:Mother. Autoimmune disease Status:Active Comments:Son. Cancer Status:Active Comments:Mother. Leukemia Coronary Artery Disease Status:Active Comments :Father. Hypertension Status:Active Comments:Father. Mother. Hypothyroidism Status:Active Comments:half br other w hypothyroid Osteoarthritis Status:Active Comments:Mother. Autoimmune disease Status:Active Comments:Son. Cancer Status:Active Comments:Mother. Leukemia Coronary Artery Disease Status:Active Comments :Father. Hypertension Status:Active Comments:Father. Mother. Hypothyroidism Status:Active Comments:half br other w hypothyroid Osteoarthritis Status:Active Comments:Mother. Autoimmune disease Status:Active Comments:Son. Cancer Status:Active Comments:Mother. Leukemia Coronary Artery Disease Status:Active Comments :Father. Hypertension Status:Active Comments:Father. Mother. Hypothyroidism Status:Active Comments:half br other w hypothyroid Osteoarthritis Status:Active Comments:Mother. Autoimmune disease Status:Active Comments:Son. Cancer Status:Active Comments:Mother. Leukemia Coronary Artery Disease Status:Active Comments :Father. Hypertension Status:Active Comments:Father. Mother. Hypothyroidism Status:Active Comments:half br other w hypothyroid Osteoarthritis Status:Active Comments:Mother. Autoimmune disease Status:Active Comments:Son. Cancer Status:Active Comments:Mother. Leukemia Coronary Artery Disease Status:Active Comments :Father. Hypertension Status:Active Comments:Father. Mother. Hypothyroidism Status:Active Comments:half br other w hypothyroid Osteoarthritis Status:Active Comments:Mother. Autoimmune disease Status:Active Comments:Son. Cancer Status:Active Comments:Mother. Leukemia Coronary Artery Disease Status:Active Comments :Father. Hypertension Status:Active Comments:Father. Mother. Hypothyroidism Status:Active Comments:half br other w hypothyroid Osteoarthritis Status:Active Comments:Mother. Autoimmune disease Status:Active Comments:Son. Cancer Status:Active Comments:Mother. Leukemia Coronary Artery Disease Status:Active Comments :Father. Hypertension Status:Active Comments:Father. Mother. Hypothyroidism Status:Active Comments:half br other w hypothyroid Osteoarthritis Status:Active Comments:Mother. Autoimmune disease Status:Active Comments:Son. Cancer Status:Active Comments:Mother. Leukemia Coronary Artery Disease Status:Active Comments :Father. Hypertension Status:Active Comments:Father. Mother. Hypothyroidism Status:Active Comments:half br other w hypothyroid Osteoarthritis Status:Active Comments:Mother. Autoimmune disease Status:Active Comments:Son. Cancer Status:Active Comments:Mother. Leukemia Coronary Artery Disease Status:Active Comments :Father. Hypertension Status:Active Comments:Father. Mother. Hypothyroidism Status:Active Comments:half br other w hypothyroid Osteoarthritis Status:Active Comments:Mother. Autoimmune disease Status:Active Comments:Son. Cancer Status:Active Comments:Mother. Leukemia Coronary Artery Disease Status:Active Comments :Father. Hypertension Status:Active Comments:Father. Mother. Hypothyroidism Status:Active Comments:half br other w hypothyroid Osteoarthritis Status:Active Comments:Mother. Autoimmune disease Status:Active Comments:Son. Cancer Status:Active Comments:Mother. Leukemia Coronary Artery Disease Status:Active Comments :Father. Hypertension Status:Active Comments:Father. Mother. Hypothyroidism Status:Active Comments:half br other w hypothyroid Osteoarthritis Status:Active Comments:Mother. Autoimmune disease Status:Active Comments:Son. Cancer Status:Active Comments:Mother. Leukemia Coronary Artery Disease Status:Active Comments :Father. Hypertension Status:Active Comments:Father. Mother. Hypothyroidism Status:Active Comments:half br other w hypothyroid Osteoarthritis Status:Active Comments:Mother. Autoimmune disease Status:Active Comments:Son. Cancer Status:Active Comments:Mother. Leukemia Coronary Artery Disease Status:Active Comments :Father. Hypertension Status:Active Comments:Father. Mother. Hypothyroidism Status:Active Comments:half br other w hypothyroid Osteoarthritis Status:Active Comments:Mother. Autoimmune disease Status:Active Comments:Son. Cancer Status:Active Comments:Mother. Leukemia Coronary Artery Disease Status:Active Comments :Father. Hypertension Status:Active Comments:Father. Mother. Hypothyroidism Status:Active Comments:half br other w hypothyroid Osteoarthritis Status:Active Comments:Mother. Autoimmune disease Status:Active Comments:Son. Cancer Status:Active Comments:Mother. Leukemia Coronary Artery Disease Status:Active Comments :Father. Hypertension Status:Active Comments:Father. Mother. Hypothyroidism Status:Active Comments:half br other w hypothyroid Osteoarthritis Status:Active Comments:Mother. Autoimmune disease Status:Active Comments:Son. Cancer Status:Active Comments:Mother. Leukemia Coronary Artery Disease Status:Active Comments :Father. Hypertension Status:Active Comments:Father. Mother. Hypothyroidism Status:Active Comments:half br other w hypothyroid Osteoarthritis Status:Active Comments:Mother. Autoimmune disease Status:Active Comments:Son. Cancer Status:Active Comments:Mother. Leukemia Coronary Artery Disease Status:Active Comments :Father. Hypertension Status:Active Comments:Father. Mother. Hypothyroidism Status:Active Comments:half br other w hypothyroid Osteoarthritis Status:Active Comments:Mother. Autoimmune disease Status:Active Comments:Son. Cancer Status:Active Comments:Mother. Leukemia Coronary Artery Disease Status:Active Comments :Father. Hypertension Status:Active Comments:Father. Mother. Hypothyroidism Status:Active Comments:half br other w hypothyroid Osteoarthritis Status:Active Comments:Mother. Autoimmune disease Status:Active Comments:Son. Cancer Status:Active Comments:Mother. Leukemia Coronary Artery Disease Status:Active Comments :Father. Hypertension Status:Active Comments:Father. Mother. Hypothyroidism Status:Active Comments:half br other w hypothyroid Osteoarthritis Status:Active Comments:Mother. Autoimmune disease Status:Active Comments:Son. Cancer Status:Active Comments:Mother. Leukemia Coronary Artery Disease Status:Active Comments :Father. Hypertension Status:Active Comments:Father. Mother. Hypothyroidism Status:Active Comments:half br other w hypothyroid Osteoarthritis Status:Active Comments:Mother. Autoimmune disease Status:Active Comments:Son. Cancer Status:Active Comments:Mother. Leukemia Coronary Artery Disease Status:Active Comments :Father. Hypertension Status:Active Comments:Father. Mother. Hypothyroidism Status:Active Comments:half br other w hypothyroid Osteoarthritis Status:Active Comments:Mother. Autoimmune disease Status:Active Comments:Son. Cancer Status:Active Comments:Mother. Leukemia Coronary Artery Disease Status:Active Comments :Father. Hypertension Status:Active Comments:Father. Mother. Hypothyroidism Status:Active Comments:half br other w hypothyroid Osteoarthritis Status:Active Comments:Mother. Autoimmune disease Status:Active Comments:Son. Cancer Status:Active Comments:Mother. Leukemia Coronary Artery Disease Status:Active Comments :Father. Hypertension Status:Active Comments:Father. Mother. Hypothyroidism Status:Active Comments:half br other w hypothyroid Osteoarthritis Status:Active Comments:Mother. Autoimmune disease Status:Active Comments:Son. Cancer Status:Active Comments:Mother. Leukemia Coronary Artery Disease Status:Active Comments :Father. Hypertension Status:Active Comments:Father. Mother. Hypothyroidism Status:Active Comments:half br other w hypothyroid Osteoarthritis Status:Active Comments:Mother. Relationship Condition Age at Onset Recorded Date/T [place] father Myocardial infarction Unknown Advance Directives No Advanced Directives Records Found Advance Directive Response Recorded Date/ Time Living Will No January 19, 2019 7:26am Power of [employer] No January 19 9 7:26am Advance Directive Response Recorded Date/ Time Do you have a Healthcare Power of [employer]? No April 22, 2025 10:42am Chief Complaint and Reason for Visit Chief Complaint FNA Chief Complaint FNA 1 UNIT PRBC Chief Complaint Admit Date weakness April 22, 2025 1 1:38am Reason for Referral Specialty Diagnoses / Procedures Referred By Lo t Referred To Contact MR IMAGING Diagnoses Malignant neoplasm of unspecified part of unspecified bronchus or lung (HCC) Small cell lung cancer (HCC) Procedures MRI BRAIN WO/W IVCON MRI BRAIN BRAIN STEM W/O W/CONTRAST MATERIAL Raven East, [address] [place] [address] [place] [address] Referral ID Status Reason Start Date Expiration Date V isits Requested Visits Authorized [id number] Closed Auto-Generate d Referral 06/01/2023 06/30/2024 1 1 Specialty Diagnoses / Procedures Referred By Contac t Referred To Contact CT IMAGING Diagnoses Malignant neoplasm of unspecified part of unspecified bronchus or lung (HCC) Small cell lung cancer (HCC) Procedures CT CHEST W IVCON DIAGNOSTIC COMPUTED TOMOGRAPHY THORAX W/CONTRAST Raven East, [address] [place] [address] [place] [address] Referral ID Status Reason Start Date Expiration Date V isits Requested Visits Authorized [id number] Closed Auto-Generate d Referral 06/01/2023 06/30/2024 1 1 Specialty Diagnoses / Procedures Referred By Contac t Referred To Contact CT IMAGING Diagnoses Malignant neoplasm of unspecified part of unspecified bronchus or lung (HCC) Small cell lung cancer (HCC) Procedures CT ABD/PEL W IVCON CT ABD & PELVIS W/CONTRAST Raven East, DO [address] [place] [address] [place] [address] Referral ID Status Reason Start Date Expiration Date V isits Requested Visits Authorized [id number] Closed Auto-Generate d Referral 06/01/2023 06/30/2024 1 1 Specialty Diagnoses / Procedures Referred By Contac t Referred To Contact Diagnoses Malignant neoplasm of unspecified part of unspecified bronchus or lung (HCC) Procedures CT SIM PLANNING RADIATION ONCOLOGY THER RAD SIMULAJ-AIDED FIELD SETTING COMPLEX Caitlin Bravo MD, [address] [place] [address] Referral ID Status Reason Start Date Expiration Date Visits Requested Visits Authorized [id number] Pending Review PCP Requested Referral 3 09/05/2023 1 1 Specialty Diagnoses / Procedures Referred By Contac t Referred To Contact CT IMAGING Diagnoses Malignant neoplasm of unspecified part of unspecified bronchus or lung (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) Small cell lung cancer (HCC) Procedures CT CHEST W IVCON DIAGNOSTIC COMPUTED TOMOGRAPHY THORAX W/CONTRAST Raven East, DO [address] [place] [address] [place] [address] Referral ID Status Reason Start Date Expiration Date Visits Requested Visits Authorized [id number] Additional Clinical Info Needed Auto-Generat ed Referral 08/24/2023 09/22/2024 1 1 Specialty Diagnoses / Procedures Referred By Contac t Referred To Contact CT IMAGING Diagnoses Malignant neoplasm of unspecified part of unspecified bronchus or lung (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) Small cell lung cancer (HCC) Procedures CT ABD/PEL W IVCON CT ABD & PELVIS W/CONTRAST Raven East, DO [address] [place] [address] Ct Imaging [id number] Referral ID Status Reason Start Date Expiration Date Visits Requested Visits Authorized [id number] Additional Clinical Info Needed Auto-Generat ed Referral 08/24/2023 09/22/2024 1 1 Specialty Diagnoses / Procedures Referred By Contac t Referred To Contact CT IMAGING Diagnoses Malignant neoplasm of unspecified part of unspecified bronchus or lung (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) Small cell lung cancer (HCC) Procedures CT NECK SOFT TISSUE W IVCON CT SOFT TISSUE NECK W/CONTRAST MATERIAL Raven East, DO [address] [place] [address] [place] [address] Referral ID Status Reason Start Date Expiration Date Visits Requested Visits Authorized [id number] Additional Clinical Info Needed Auto-Generat ed Referral 08/24/2023 09/22/2024 1 1 Specialty Diagnoses / Procedures Referred By Contac t Referred To Contact MR IMAGING Diagnoses Malignant neoplasm of unspecified part of unspecified bronchus or lung (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) Small cell lung cancer (HCC) Procedures MRI BRAIN WO/W IVCON MRI BRAIN BRAIN STEM W/O W/CONTRAST MATERIAL Raven East, DO [address] [place] [address] [place] [address] Referral ID Status Reason Start Date Expiration Date Visits Requested Visits Authorized [id number] Additional Clinical Info Needed Auto-Generat ed Referral 08/24/2023 09/22/2024 1 1 Referral ID Status Reason Start Date Expiration Date V isits Requested Visits Authorized [id number] Closed Auto-Generate d Referral 09/01/2023 02/28/2024 1 1 Referral ID Status Reason Start Date Expiration Date V isits Requested Visits Authorized [id number] Closed Auto-Generate d Referral 09/01/2023 02/28/2024 1 1 Specialty Diagnoses / Procedures Referred By Contac t Referred To Contact Diagnoses Small cell lung cancer (HCC) Procedures CT SIM PLANNING RADIATION ONCOLOGY THER RAD SIMULAJ-AIDED FIELD SETTING COMPLEX Caitlin Bravo MD [address] [place] [address] Referral ID Status Reason Start Date Expiration Date Visits Requested Visits Authorized [id number] Pending Review PCP Requested Referral 10/24/2023 01/07/2024 1 1 Specialty Diagnoses / Procedures Referred By Contac t Referred To Contact CT IMAGING Diagnoses Small cell lung cancer (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) Procedures CT NECK SOFT TISSUE W IVCON CT SOFT TISSUE NECK W/CONTRAST MATERIAL Raven East DO [address] [place] [address] [place] [address] Referral ID Status Reason Start Date Expiration Date Visits Requested Visits Authorized [id number] Additional Clinical Info Needed Auto-Generat ed Referral 11/01/2023 11/30/2024 1 1 Specialty Diagnoses / Procedures Referred By Contac t Referred To Contact CT IMAGING Diagnoses Small cell lung cancer (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) Procedures CT ABD/PEL W IVCON CT ABD & PELVIS W/CONTRAST Raven East DO [address] [place] [address] [place] [address] Referral ID Status Reason Start Date Expiration Date Visits Requested Visits Authorized [id number] Additional Clinical Info Needed Auto-Generat ed Referral 11/01/2023 11/30/2024 1 1 Specialty Diagnoses / Procedures Referred By Contac t Referred To Contact CT IMAGING Diagnoses Small cell lung cancer (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) Procedures CT CHEST W IVCON DIAGNOSTIC COMPUTED TOMOGRAPHY THORAX W/CONTRAST Raven East, [address] [place] [address] [place] [address] Referral ID Status Reason Start Date Expiration Date Visits Requested Visits Authorized [id number] Additional Clinical Info Needed Auto-Generat ed Referral 11/01/2023 11/30/2024 1 1 Referral ID Status Reason Start Date Expiration Date V isits Requested Visits Authorized [id number] Closed Auto-Generate d Referral 11/09/2023 05/07/2024 2 2 Referral ID Status Reason Start Date Expiration Date V isits Requested Visits Authorized [id number] Closed Auto-Generate d Referral 11/09/2023 05/07/2024 1 1 Referral ID Status Reason Start Date Expiration Date V isits Requested Visits Authorized [id number] Closed Auto-Generate d Referral 11/09/2023 05/07/2024 1 1 Specialty Diagnoses / Procedures Referred By Contac t Referred To Contact CT IMAGING Diagnoses Small cell lung cancer (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) Procedures CT NECK SOFT TISSUE W IVCON CT SOFT TISSUE NECK W/CONTRAST MATERIAL Xiao Perez, [facility] [address] [place] [address] [place] [address] Referral ID Status Reason Start Date Expiration Date Visits Requested Visits Authorized [id number] Pending Review Auto-Generat ed Referral 02/23/2024 12/22/2024 1 1 Specialty Diagnoses / Procedures Referred By Contac t Referred To Contact CT IMAGING Diagnoses Small cell lung cancer (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) Procedures CT CHEST W IVCON DIAGNOSTIC COMPUTED TOMOGRAPHY THORAX W/CONTRAST Xiao Perez APRN.[facility] [address] [place] [address] [place] [address] Referral ID Status Reason Start Date Expiration Date Visits Requested Visits Authorized [id number] Pending Review Auto-Generat ed Referral 02/23/2024 12/22/2024 1 1 Specialty Diagnoses / Procedures Referred By Contac t Referred To Contact CT IMAGING Diagnoses Small cell lung cancer (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) Procedures CT ABD/PEL W IVCON CT ABD & PELVIS W/CONTRAST Xiao Perez APRN.[facility] [address] [place] [address] Ct Imaging [id number] Referral ID Status Reason Start Date Expiration Date Visits Requested Visits Authorized [id number] Pending Review Auto-Generat ed Referral 02/23/2024 12/22/2024 1 1 Specialty Diagnoses / Procedures Referred By Contac t Referred To Contact MR IMAGING Diagnoses Small cell lung cancer, unspecified laterality (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) Procedures MRI BRAIN WO/W IVCON MRI BRAIN BRAIN STEM W/O W/CONTRAST MATERIAL Raven East, DO [address] [place] [address] Mr Imaging [id number] Referral ID Status Reason Start Date Expiration Date Visits Requested Visits Authorized [id number] Additional Clinical Info Needed Auto-Generat ed Referral 12/27/2023 01/25/2025 1 1 Specialty Diagnoses / Procedures Referred By Contac t [facility] Diagnoses Small cell lung cancer, unspecified laterality (HCC) Procedures ECG COMPLETE ECG ROUTINE ECG W/LEAST 12 LDS W/I&R Raven East, DO [address] [place] [address] [facility] [address] [place] [address] Referral ID Status Reason Start Date Expiration Date Visits Requested Visits Authorized [id number] Pending Review Auto-Generat ed Referral 12/27/2023 12/26/2024 1 1 Referral ID Status Reason Start Date Expiration Date V isits Requested Visits Authorized [id number] Closed Auto-Generat ed Referral Patient Cleared - Admin/Chairm an/Director advise to proceed or did not respond 12/28/2023 06/25/2024 1 1 Referral ID Status Reason Start Date Expiration Date V isits Requested Visits Authorized [id number] Closed Auto-Generate d Referral 01/02/2024 06/30/2024 1 1 Specialty Diagnoses / Procedures Referred By Contac t Referred To Contact CT IMAGING Diagnoses Small cell lung cancer, unspecified laterality (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) Procedures CT NECK SOFT TISSUE W IVCON CT SOFT TISSUE NECK W/CONTRAST MATERIAL Raven East, DO [address] [place] [address] [place] [address] Referral ID Status Reason Start Date Expiration Date Visits Requested Visits Authorized [id number] Pending Review Auto-Generat ed Referral 02/01/2024 03/01/2025 1 1 Specialty Diagnoses / Procedures Referred By Contac t Referred To Contact CT IMAGING Diagnoses Small cell lung cancer, unspecified laterality (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) Procedures CT ABD/PEL W IVCON CT ABD & PELVIS W/CONTRAST Raven East, DO [address] [place] [address] [place] [address] Referral ID Status Reason Start Date Expiration Date Visits Requested Visits Authorized [id number] Pending Review Auto-Generat ed Referral 02/01/2024 03/01/2025 1 1 Specialty Diagnoses / Procedures Referred By Contac t Referred To Contact CT IMAGING Diagnoses Small cell lung cancer, unspecified laterality (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) Procedures CT CHEST W IVCON DIAGNOSTIC COMPUTED TOMOGRAPHY THORAX W/CONTRAST Raven East, DO [address] [place] [address] [place] [address] Referral ID Status Reason Start Date Expiration Date Visits Requested Visits Authorized [id number] Pending Review Auto-Generat ed Referral 02/01/2024 03/01/2025 1 1 Specialty Diagnoses / Procedures Referred By Contac t Referred To Contact Cardiology Diagnoses Orthostasis Small cell lung cancer, unspecified laterality (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) Procedures CONSULT TO CARDIOLOGY OFFICE/OUTPATIENT [facility] MDM 60 MINUTES Raven East, DO [address] [place] [address] Referral ID Status Reason Start Date Expiration Date Visits Requested Visits Authorized [id number] Authorized PCP Requested Referral 02/12/2024 02/11/2025 1 1 Specialty Diagnoses / Procedures Referred By Contac t Referred To Contact CT IMAGING Diagnoses Small cell lung cancer, unspecified laterality (HCC) Procedures CT NECK SOFT TISSUE W IVCON CT SOFT TISSUE NECK W/CONTRAST MATERIAL Raven East, DO [address] [place] [address] [place] [address] Referral ID Status Reason Start Date Expiration Date Visits Requested Visits Authorized [id number] Pending Review Auto-Generat ed Referral 06/01/2025 1 1 Specialty Diagnoses / Procedures Referred By Contac t Referred To Contact CT IMAGING Diagnoses Small cell lung cancer, unspecified laterality (HCC) Procedures CT CHEST W IVCON DIAGNOSTIC COMPUTED TOMOGRAPHY THORAX W/CONTRAST Raven East, DO [address] [place] [address] [place] [address] Referral ID Status Reason Start Date Expiration Date Visits Requested Visits Authorized [id number] Pending Review Auto-Generat ed Referral 06/01/2025 1 1 Specialty Diagnoses / Procedures Referred By Contac t Referred To Contact CT IMAGING Diagnoses Small cell lung cancer, unspecified laterality (HCC) Procedures CT ABD/PEL W IVCON CT ABD & PELVIS W/CONTRAST Raven East, DO [address] [place] [address] [place] [address] Referral ID Status Reason Start Date Expiration Date Visits Requested Visits Authorized [id number] Pending Review Auto-Generat ed Referral 06/01/2025 1 1 Specialty Diagnoses / Procedures Referred By Contac t Referred To Contact XR IMAGING Diagnoses Small cell lung cancer, unspecified laterality (HCC) Acute right-sided low back pain without sciatica Procedures XR LUMBAR LIMITED 2V AP/LAT RADEX SPINE LUMBOSACRAL 2/3 VIEWS Raven East, [address] [place] [address] [place] [id number] Referral ID Status Reason Start Date Expiration Date V isits Requested Visits Authorized [id number] Closed Auto-Generate d Referral 05/02/2024 06/01/2025 1 1 Specialty Diagnoses / Procedures Referred By Contac t Referred To Contact [facility] Diagnoses Small cell lung cancer, unspecified laterality (HCC) Dyspnea and respiratory abnormalities Procedures SPIROMETRY - BASELINE AND POST DILATOR BRNCDILAT RSPSE SPMTRY PRE&POST-BRNCDILAT ADMN Raven East, [address] [place] [address] [address] Referral ID Status Reason Start Date Expiration Date Visits Requested Visits Authorized [id number] Authorized Auto-Generat ed Referral 06/01/2025 1 1 Specialty Diagnoses / Procedures Referred By Contac t Referred To [facility] [place] Diagnoses Small cell lung cancer, unspecified laterality (HCC) Dyspnea and respiratory abnormalities Procedures LUNG DIFFUSION CAPACITY (DLCO) DIFFUSING CAPACITY Raven East, [address] [place] [address] [address] Referral ID Status Reason Start Date Expiration Date Visits Requested Visits Authorized [id number] Authorized Auto-Generat ed Referral 06/01/2025 1 1 Specialty Diagnoses / Procedures Referred By Contac t Referred To Contact [facility] Diagnoses Acute right-sided low back pain without sciatica Procedures CONSULT TO PHYSICAL THERAPY PHYSICAL THERAPY EVALUATION HIGH COMPLEX 45 MINS Raven East, [address] [place] [address] [facility] [address] [address] Referral ID Status Reason Start Date Expiration Date Visits Requested Visits Authorized [id number] Authorized Auto-Generat ed Referral 07/03/2023 07/02/2024 30 30 Specialty Diagnoses / Procedures Referred By Contac t Referred To Contact CT IMAGING Diagnoses Encounter for follow-up surveillance of lung cancer Small cell lung cancer, unspecified laterality (HCC) Dyspnea and respiratory abnormalities Procedures CT NECK SOFT TISSUE W IVCON CT SOFT TISSUE NECK W/CONTRAST MATERIAL Xiao Perez, [employer] [address] [place] [address] [place] [address] Referral ID Status Reason Start Date Expiration Date Visits Requested Visits Authorized [id number] Pending Review Auto-Generat ed Referral 10/30/2024 09/01/2025 1 1 Specialty Diagnoses / Procedures Referred By Contac t Referred To Contact CT IMAGING Diagnoses Encounter for follow-up surveillance of lung cancer Small cell lung cancer, unspecified laterality (HCC) Dyspnea and respiratory abnormalities Procedures CT CHEST W IVCON DIAGNOSTIC COMPUTED TOMOGRAPHY THORAX W/CONTRAST Xiao Perez, [employer] [address] [place] [address] [place] [address] Referral ID Status Reason Start Date Expiration Date Visits Requested Visits Authorized [id number] Pending Review Auto-Generat ed Referral 10/30/2024 09/01/2025 1 1 Specialty Diagnoses / Procedures Referred By Contac t Referred To Contact CT IMAGING Diagnoses Encounter for follow-up surveillance of lung cancer Small cell lung cancer, unspecified laterality (HCC) Dyspnea and respiratory abnormalities Procedures CT ABD/PEL W IVCON CT ABD & PELVIS W/CONTRAST Xiao Perez, [employer] [address] [place] [address] [place] [address] Referral ID Status Reason Start Date Expiration Date Visits Requested Visits Authorized [id number] Pending Review Auto-Generat ed Referral 10/30/2024 09/01/2025 1 1 Additional Source Comments INFORMATION SOURCE (unrecogn ized section and content) DATE CREATED AUTHOR 12/26/2017 [facility] Yolanda Cifuentes DATE CREATED AUTHOR AUTHOR'S ORGANIZ ATION 10/08/2020 [facility] DATE CREATED AUTHOR AUTHOR'S ORGANIZ ATION 11/19/2021 [facility] DATE CREATED AUTHOR AUTHOR'S ORGANIZ ATION 05/14/2023 [facility] DATE CREATED AUTHOR AUTHOR'S ORGANIZ ATION 02/28/2025 [facility] DATE CREATED AUTHOR AUTHOR'S ORGANIZ ATION 04/19/2025 [facility] DATE CREATED AUTHOR AUTHOR'S ORGANIZ ATION 05/04/2025 [facility] DATE CREATED AUTHOR AUTHOR'S ORGANIZ ATION 05/13/2025 [facility] Care Teams (unrecognized sec tion and content) Team Status: Active Member Role Status Dates Dr. Chinyere Lara MD Family Provider Active Dr. Chinyere Lara MD Primary Care Provider Active Team Status: Inactive Member Role Status Dates Dr. Chinyere Lara MD Primary Care Provider Active Dr. Jonny Royal MD Attending Provider, Refe rring Provider Active Supervisor Detasseling Crew Relationship Specialty Start Date End Date Chinyere Lara MD [address] [facility] [place] [address] PCP - General 08/11/03 Caitlin Bravo MD, MD [address] [place], [place] [address] Physician Radiation Oncology 06/01/23 Supervisor Detasseling Crew Relationship Specialty Start Date End Date Chinyere Lara MD [address] [facility] [place] [place] [address] PCP - General 08/11/03 Caitlin Bravo MD, MD [address] [place] [address] Physician Radiation Oncology 06/01/23 Supervisor Detasseling Crew Relationship Specialty Start Date End Date Chinyere Lara MD [address] [facility] [place] [place] [address] PCP - General 08/11/03 Caitlin Bravo MD, [address] [place] [address] Physician Radiation Oncology 06/01/23 Supervisor Detasseling Crew Relationship Specialty Start Date End Date Chinyere Lara MD [address] [facility] [place] [place] [address] PCP - General 08/11/03 Caitlin Bravo MD, [address] [place] [address] Physician Radiation Oncology 06/01/23 Supervisor Detasseling Crew Relationship Specialty Start Date End Date Chinyere Lara MD [address] [facility] [place] [address] PCP - General 08/11/03 Caitlin Bravo MD, [address] [place] [address] Physician Radiation Oncology 06/01/23 Supervisor Detasseling Crew Relationship Specialty Start Date End Date Chinyere Lara MD [address] [facility] [place] [place] [address] PCP - General 08/11/03 Caitlin Bravo MD, [address] [place] [place] [address] Physician Radiation Oncology 06/01/23 Supervisor Detasseling Crew Relationship Specialty Start Date End Date Chinyere Lara MD [address] [facility] [place] [place] [address] PCP - General 08/11/03 Caitlin Bravo MD, [address] [place] [address] Physician Radiation Oncology 06/01/23 Supervisor Detasseling Crew Relationship Specialty Start Date End Date Chinyere Lara MD [address] [facility] [place] [address] PCP - General 08/11/03 Caitlin Bravo MD, [address] [place] [address] Physician Radiation Oncology 06/01/23 Supervisor Detasseling Crew Relationship Specialty Start Date End Date Chinyere Lara MD [address] [facility] [place] [address] PCP - General 08/11/03 Caitlin Bravo MD, [address] [place] [address] Physician Radiation Oncology 06/01/23 Belgica Rao RN Specialty Paper Ruler Oncology 06/06/23 Raven East DO [address] [place] [address] Physician Hematology/Oncology 06/06/23 Supervisor Detasseling Crew Relationship Specialty Start Date End Date Chinyere Lara MD [address] [place] [address] [place] [address] PCP - General 08/11/03 Caitlin Bravo MD, [address] [place] [address] Physician Radiation Oncology 06/01/23 Belgica Rao RN Specialty Paper Ruler Oncology 06/06/23 Raven East DO [address] [place] [address] Physician Hematology/Oncology 06/06/23 Supervisor Detasseling Crew Relationship Specialty Start Date End Date Chinyere Lara MD [address] [facility] [place] [address] PCP - General 08/11/03 Caitlin Bravo MD, [address] [place] [address] Physician Radiation Oncology 06/01/23 Belgica Rao RN Specialty Paper Ruler Oncology 06/06/23 Raven East DO [address] [place] [address] Physician Hematology/Oncology 06/06/23 Supervisor Detasseling Crew Relationship Specialty Start Date End Date Chinyere Lara MD [address] [facility] [place] [place] [address] PCP - General 08/11/03 Caitlin Bravo MD, [address] [place] [address] Physician Radiation Oncology 06/01/23 Belgica Rao RN Specialty Paper Ruler Oncology 06/06/23 Raven East DO [address] [place] [address] Physician Hematology/Oncology 06/06/23 Supervisor Detasseling Crew Relationship Specialty Start Date End Date Chinyere Lara MD [address] [facility] [place] [address] PCP - General 08/11/03 Caitlin Bravo MD, [address] [place] [address] Physician Radiation Oncology 06/01/23 Belgica Rao RN Specialty Paper Ruler Oncology 06/06/23 Raven East DO [address] [place] [address] Physician Hematology/Oncology 06/06/23 Supervisor Detasseling Crew Relationship Specialty Start Date End Date Chinyere Lara MD [address] [place] [address] [place] [address] PCP - General 08/11/03 Caitlin Bravo MD, [address] [place] [address] Physician Radiation Oncology 06/01/23 Belgica Rao RN Specialty Paper Ruler Oncology 06/06/23 Raven East DO [address] [place] [address] Physician Hematology/Oncology 06/06/23 Supervisor Detasseling Crew Relationship Specialty Start Date End Date Chinyere Lara MD [address] [place] [address] [place] [address] PCP - General 08/11/03 Caitlin Bravo MD, [address] [place] [address] Physician Radiation Oncology 06/01/23 Belgica Rao RN Specialty Paper Ruler Oncology 06/06/23 Raven East DO [address] [place] [address] Physician Hematology/Oncology 06/06/23 Supervisor Detasseling Crew Relationship Specialty Start Date End Date Chinyere Lara MD [address] [facility] [place] [place] [address] PCP - General 08/11/03 Caitlin Bravo MD [address] [place] [address] Physician Radiation Oncology 06/01/23 Belgica Rao RN Specialty Paper Ruler Oncology 06/06/23 Raven East DO [address] [place] [address] Physician Hematology/Oncology 06/06/23 Supervisor Detasseling Crew Relationship Specialty Start Date End Date Chinyere Lara MD [address] [facility] [place] [place] [address] PCP - General 08/11/03 Caitlin Bravo MD [address] [place] [address] Physician Radiation Oncology 06/01/23 Belgica Rao RN Specialty Paper Ruler Oncology 06/06/23 Raven East DO [address] [place] [address] Physician Hematology/Oncology 06/06/23 Team Status: Inactive Member Role Status Dates Dr. Chinyere Lara MD Primary Care Provider Active Dr. Raven East DO Attending Provider, Referring Prov ider Active Supervisor Detasseling Crew Relationship Specialty Start Date End Date Chinyere Lara MD [address] [facility] [place] [place] [address] PCP - General 08/11/03 Caitlin Bravo MD [address] [place] [address] Physician Radiation Oncology 06/01/23 Belgica Rao RN Specialty Paper Ruler Oncology 06/06/23 Raven East DO [address] [place] [address] Physician Hematology/Oncology 06/06/23 Supervisor Detasseling Crew Relationship Specialty Start Date End Date Chinyere Lara MD [address] [facility] [place] [place] [address] PCP - General 08/11/03 Caitlin Bravo MD [address] [place] [address] Physician Radiation Oncology 06/01/23 Belgica Rao RN Specialty Paper Ruler Oncology 06/06/23 Raven East DO [address] [place] [address] Physician Hematology/Oncology 06/06/23 Supervisor Detasseling Crew Relationship Specialty Start Date End Date Chinyere Lara MD [address] [facility] [place] [place] [address] PCP - General 08/11/03 Caitlin Bravo MD [address] [place] [address] Physician Radiation Oncology 06/01/23 Belgica Rao RN Specialty Paper Ruler Oncology 06/06/23 Raven East DO [address] [place] [address] Physician Hematology/Oncology 06/06/23 Supervisor Detasseling Crew Relationship Specialty Start Date End Date Chinyere Lara MD [address] [facility] [place] [place] [address] PCP - General 08/11/03 Caitlin Bravo MD [address] [place] [address] Physician Radiation Oncology 06/01/23 Belgica Rao RN Specialty Paper Ruler Oncology 06/06/23 Raven East DO [address] [place] [address] Physician Hematology/Oncology 06/06/23 Supervisor Detasseling Crew Relationship Specialty Start Date End Date Chinyere Lara MD [address] [facility] [place] [place] [address] PCP - General 08/11/03 Caitlin Bravo MD [address] [place] [address] Physician Radiation Oncology 06/01/23 Belgica Rao RN Specialty Paper Ruler Oncology 06/06/23 Raven East DO [address] [place] [address] Physician Hematology/Oncology 06/06/23 Supervisor Detasseling Crew Relationship Specialty Start Date End Date Chinyere Lara MD [address] [facility] [place] [address] PCP - General 08/11/03 Caitlin Bravo MD [address] [place] [address] Physician Radiation Oncology 06/01/23 Belgica Rao RN Specialty Paper Ruler Oncology 06/06/23 Raven East DO [address] [place] [address] Physician Hematology/Oncology 06/06/23 Supervisor Detasseling Crew Relationship Specialty Start Date End Date Chinyere Lara MD [address] [facility] [place] [place] [address] PCP - General 08/11/03 Caitlin Bravo MD [address] [place] [address] Physician Radiation Oncology 06/01/23 Belgica Rao RN Specialty Paper Ruler Oncology 06/06/23 Raven East DO [address] [place] [address] Physician Hematology/Oncology 06/06/23 Supervisor Detasseling Crew Relationship Specialty Start Date End Date Chinyere Lara MD [address] [facility] [place] [place] [address] PCP - General 08/11/03 Caitlin Bravo MD [address] [place] [address] Physician Radiation Oncology 06/01/23 Belgica Rao RN Specialty Paper Ruler Oncology 06/06/23 Raven East DO [address] [place] [address] Physician Hematology/Oncology 06/06/23 Supervisor Detasseling Crew Relationship Specialty Start Date End Date Chinyere Lara MD [address] [facility] [place] [address] PCP - General 08/11/03 Caitlin Bravo MD [address] [place] [address] Physician Radiation Oncology 06/01/23 Belgica Rao RN Specialty Paper Ruler Oncology 06/06/23 Raven East DO [address] [place] [address] Physician Hematology/Oncology 06/06/23 Supervisor Detasseling Crew Relationship Specialty Start Date End Date Chinyere Lara MD [address] [facility] [place] [address] PCP - General 08/11/03 Caitlin Bravo MD [address] [place] [address] Physician Radiation Oncology 06/01/23 Belgica Rao RN Specialty Paper Ruler Oncology 06/06/23 Raven East DO [address] [place] [address] Physician Hematology/Oncology 06/06/23 Supervisor Detasseling Crew Relationship Specialty Start Date End Date Chinyere Lara MD [address] [place] [address] [place] [address] PCP - General 08/11/03 Caitlin Bravo MD [address] [place] [address] Physician Radiation Oncology 06/01/23 Belgica Rao RN Specialty Paper Ruler Oncology 06/06/23 Raven East DO [address] [place] [address] Physician Hematology/Oncology 06/06/23 Supervisor Detasseling Crew Relationship Specialty Start Date End Date Chinyere Lara MD [address] [facility] [place] [address] PCP - General 08/11/03 Caitlin Bravo MD [address] [place] [address] Physician Radiation Oncology 06/01/23 Belgica Rao RN Specialty Paper Ruler Oncology 06/06/23 Raven East DO [address] [place], [place] [address] [phone] Physician Hematology/Oncology 06/06/23 Supervisor Detasseling Crew Relationship Specialty Start Date End Date Chinyere Lara MD [address] [facility] [place] [place] [address] PCP - General 08/11/03 Caitlin Bravo MD [address] [place] [address] Physician Radiation Oncology 06/01/23 Belgica Rao RN Specialty Paper Ruler Oncology 06/06/23 Raven East DO [address] [place] [address] Physician Hematology/Oncology 06/06/23 Supervisor Detasseling Crew Relationship Specialty Start Date End Date Chinyere Lara MD [address] [facility] [place] [address] PCP - General 08/11/03 Caitlin Bravo MD [address] [place] [address] Physician Radiation Oncology 06/01/23 Belgica Rao RN Specialty Paper Ruler Oncology 06/06/23 Raven East DO [address] [place] [address] Physician Hematology/Oncology 06/06/23 Supervisor Detasseling Crew Relationship Specialty Start Date End Date Chinyere Lara MD [address] [facility] [place] [place] [address] PCP - General 08/11/03 Caitlin Bravo MD [address] [place] [address] Physician Radiation Oncology 06/01/23 Belgica Rao RN Specialty Paper Ruler Oncology 06/06/23 Raven East DO [address] [place] [address] Physician Hematology/Oncology 06/06/23 Supervisor Detasseling Crew Relationship Specialty Start Date End Date Chinyere Lara MD [address] [facility] [place] [address] PCP - General 08/11/03 Caitlin Bravo MD [address] [place] [address] Physician Radiation Oncology 06/01/23 Belgica Rao RN Specialty Paper Ruler Oncology 06/06/23 Raven East DO [address] [place] [address] Physician Hematology/Oncology 06/06/23 Supervisor Detasseling Crew Relationship Specialty Start Date End Date Chinyere Lara MD [address] [facility] [place] [address] PCP - General 08/11/03 Caitlin Bravo MD [address] [place] [address] Physician Radiation Oncology 06/01/23 Belgica Rao RN Specialty Paper Ruler Oncology 06/06/23 Raven East DO [address] [place] [address] Physician Hematology/Oncology 06/06/23 Supervisor Detasseling Crew Relationship Specialty Start Date End Date Chinyere Lara MD [address] [facility] [place] [address] PCP - General 08/11/03 Caitlin Bravo MD [address] [place] [address] Physician Radiation Oncology 06/01/23 Belgica Rao RN Specialty Paper Ruler Oncology 06/06/23 Raven East DO [address] [place] [address] Physician Hematology/Oncology 06/06/23 Supervisor Detasseling Crew Relationship Specialty Start Date End Date Chinyere Lara MD [address] [facility] [place] [address] PCP - General 08/11/03 Caitlin Bravo MD [address] [place] [address] Physician Radiation Oncology 06/01/23 Belgica Rao RN Specialty Paper Ruler Oncology 06/06/23 Raven East DO [address] [place] [address] Physician Hematology/Oncology 06/06/23 Supervisor Detasseling Crew Relationship Specialty Start Date End Date Chinyere Lara MD [address] [facility] [place] [address] PCP - General 08/11/03 Caitlin Bravo MD [address] [place] [address] Physician Radiation Oncology 06/01/23 Belgica Rao RN Specialty Paper Ruler Oncology 06/06/23 Raven East DO [address] [place] [address] Physician Hematology/Oncology 06/06/23 Supervisor Detasseling Crew Relationship Specialty Start Date End Date Chinyere Lara MD [address] [facility] [place] [place] [address] PCP - General 08/11/03 Caitlin Bravo MD [address] [place] [address] Physician Radiation Oncology 06/01/23 Belgica Rao RN Specialty Paper Ruler Oncology 06/06/23 Raven East DO [address] [place] [address] Physician Hematology/Oncology 06/06/23 Supervisor Detasseling Crew Relationship Specialty Start Date End Date Chinyere Lara MD [address] [facility] [place] [address] PCP - General 08/11/03 Caitlin Bravo MD [address] [place] [address] Physician Radiation Oncology 06/01/23 Belgica Rao RN Specialty Paper Ruler Oncology 06/06/23 Raven East DO [address] [place] [address] Physician Hematology/Oncology 06/06/23 Supervisor Detasseling Crew Relationship Specialty Start Date End Date Chinyere Lara MD [address] [facility] [place] [address] PCP - General 08/11/03 Caitlin Bravo MD [address] [place] [address] Physician Radiation Oncology 06/01/23 Belgica Rao RN Specialty Paper Ruler Oncology 06/06/23 Raven East DO [address] [place] [address] Physician Hematology/Oncology 06/06/23 Supervisor Detasseling Crew Relationship Specialty Start Date End Date Chinyere Lara MD [address] [facility] [place] [place] [address] PCP - General 08/11/03 Caitlin Bravo MD [address] [place] [address] Physician Radiation Oncology 06/01/23 Belgica Rao RN Specialty Paper Ruler Oncology 06/06/23 Raven East DO [address] [place] [address] Physician Hematology/Oncology 06/06/23 Supervisor Detasseling Crew Relationship Specialty Start Date End Date Chinyere Lara MD [address] [facility] [place] [address] PCP - General 08/11/03 Caitlin Bravo MD [address] [place] [address] Physician Radiation Oncology 06/01/23 Belgica Rao RN Specialty Paper Ruler Oncology 06/06/23 Raven East DO [address] [place] [address] Physician Hematology/Oncology 06/06/23 Supervisor Detasseling Crew Relationship Specialty Start Date End Date Chinyere Lara MD [address] [facility] [place] [address] PCP - General 08/11/03 Caitlin Bravo MD [address] [place] [address] Physician Radiation Oncology 06/01/23 Belgica Rao RN Specialty Paper Ruler Oncology 06/06/23 Raven East DO [address] [place] [address] Physician Hematology/Oncology 06/06/23 Supervisor Detasseling Crew Relationship Specialty Start Date End Date Chinyere Lara MD [address] [facility] [place] [address] PCP - General 08/11/03 Caitlin Bravo MD [address] [place] [address] Physician Radiation Oncology 06/01/23 Belgica Rao RN Specialty Paper Ruler Oncology 06/06/23 Raven East DO [address] [place] [address] Physician Hematology/Oncology 06/06/23 Supervisor Detasseling Crew Relationship Specialty Start Date End Date Chinyere Lara MD [address] [facility] [place] [address] PCP - General 08/11/03 Caitlin Bravo MD [address] [place] [address] Physician Radiation Oncology 06/01/23 Belgica Rao RN Specialty Paper Ruler Oncology 06/06/23 Raven East DO [address] [place] [place] [address] Physician Hematology/Oncology 06/06/23 Supervisor Detasseling Crew Relationship Specialty Start Date End Date Chinyere Lara MD [address] [place] [address] [place] [address] PCP - General 08/11/03 Caitlin Bravo MD [address] [place] [address] Physician Radiation Oncology 06/01/23 Belgica Rao RN Specialty Paper Ruler Oncology 06/06/23 Raven East DO [address] [place] [address] Physician Hematology/Oncology 06/06/23 Supervisor Detasseling Crew Relationship Specialty Start Date End Date Chinyere Lara MD [address] [facility] [place] [address] PCP - General 08/11/03 Caitlin Bravo MD [address] [place] [address] Physician Radiation Oncology 06/01/23 Belgica Rao RN Specialty Paper Ruler Oncology 06/06/23 Raven East DO [address] [place] [address] Physician Hematology/Oncology 06/06/23 Supervisor Detasseling Crew Relationship Specialty Start Date End Date Chinyere Lara MD [address] [facility] [place] [place] [address] PCP - General 08/11/03 Caitlin Bravo MD [address] [place] [address] Physician Radiation Oncology 06/01/23 Belgica Rao RN Specialty Paper Ruler Oncology 06/06/23 Raven East DO [address] [place] [address] Physician Hematology/Oncology 06/06/23 Supervisor Detasseling Crew Relationship Specialty Start Date End Date Chinyere Lara MD [address] [facility] [place] [address] PCP - General 08/11/03 Caitlin Bravo MD [address] [place] [address] Physician Radiation Oncology 06/01/23 Belgica Rao RN Specialty Paper Ruler Oncology 06/06/23 Raven East DO [address] [place] [address] Physician Hematology/Oncology 06/06/23 Supervisor Detasseling Crew Relationship Specialty Start Date End Date Chinyere Lara MD [address] [facility] [place] [address] PCP - General 08/11/03 Caitlin Bravo MD [address] [place] [address] Physician Radiation Oncology 06/01/23 Belgica Rao RN Specialty Paper Ruler Oncology 06/06/23 Raven East DO [address] [place] [address] Physician Hematology/Oncology 06/06/23 Supervisor Detasseling Crew Relationship Specialty Start Date End Date Chinyere Lara MD [address] [facility] [place] [place] [address] PCP - General 08/11/03 Caitlin Bravo MD [address] [place] [address] Physician Radiation Oncology 06/01/23 Belgica Rao RN Specialty Paper Ruler Oncology 06/06/23 Raven East DO [address] [place] [address] Physician Hematology/Oncology 06/06/23 Supervisor Detasseling Crew Relationship Specialty Start Date End Date Chinyere Lara MD [address] [facility] [place] [address] PCP - General 08/11/03 Caitlin Bravo MD [address] [place] [address] Physician Radiation Oncology 06/01/23 Belgica Rao RN Specialty Paper Ruler Oncology 06/06/23 Raven East DO [address] [place] [address] Physician Hematology/Oncology 06/06/23 Supervisor Detasseling Crew Relationship Specialty Start Date End Date Chinyere Lara MD [address] [facility] [place] [place] [address] PCP - General 08/11/03 Supervisor Detasseling Crew Relationship Specialty Start Date End Date Chinyere Lara MD [address] [facility] [place] [place] [address] PCP - General 08/11/03 Caitlin Bravo MD [address] [place] [address] Physician Radiation Oncology 06/01/23 Belgica Rao RN Specialty Paper Ruler Oncology 06/06/23 Raven East DO [address] [place] [address] Physician Hematology/Oncology 06/06/23 Neptali Lake MD [address] [place] [address] Cardiology 05/02/24 Supervisor Detasseling Crew Relationship Specialty Start Date End Date Chinyere Lara MD [address] [facility] [place] [place] [address] PCP - General 08/11/03 Caitlin Bravo MD [address] [place] [address] Physician Radiation Oncology 06/01/23 Belgica aRo RN Specialty Paper Ruler Oncology 06/06/23 Raven East DO [address] [address] Physician Hematology/Oncology 06/06/23 Neptali Lake MD [address] [place] [address] Cardiology 05/02/24 Supervisor Detasseling Crew Relationship Specialty Start Date End Date Chinyere Lara MD [address] [facility] [place] [address] PCP - General 08/11/03 Caitlin Bravo MD [address] [place] [address] Physician Radiation Oncology 06/01/23 Belgica Rao RN Specialty Paper Ruler Oncology 06/06/23 Raven East DO [address] [place] [address] Physician Hematology/Oncology 06/06/23 Neptali Lake MD [address] [place] [address] Cardiology 05/02/24 Supervisor Detasseling Crew Relationship Specialty Start Date End Date Chinyere Lara MD [address] [facility] [place] [address] PCP - General 08/11/03 Caitlin Bravo MD [address] [place] [address] Physician Radiation Oncology 06/01/23 Belgica Rao RN Specialty Paper Ruler Oncology 06/06/23 Raven East DO [address] [place] [address] Physician Hematology/Oncology 06/06/23 Neptali Lake MD [address] [place] [address] Cardiology 05/02/24 Supervisor Detasseling Crew Relationship Specialty Start Date End Date Chinyere Lara MD [address] [facility] [place] [place] [address] PCP - General 08/11/03 Caitlin Bravo MD [address] [place], [place] [address]91 Physician Radiation Oncology 06/01/23 Belgica Rao RN Specialty Paper Ruler Oncology 06/06/23 Raven East DO [address] [place] [address] Physician Hematology/Oncology 06/06/23 Neptali Lake MD [address] [place] [address] Cardiology 05/02/24 Supervisor Detasseling Crew Relationship Specialty Start Date End Date Chinyere Lara MD [address] [facility] [place] [place] [address] PCP - General 08/11/03 Caitlin Bravo MD [address] [place], [place] [id number] Physician Radiation Oncology 06/01/23 Belgica Rao RN Specialty Paper Ruler Oncology 06/06/23 Raven East DO [address] [place], [place] [address]91 Physician Hematology/Oncology 06/06/23 Neptali Lake MD [address] [place] [address] Cardiology 05/02/24 Supervisor Detasseling Crew Relationship Specialty Start Date End Date Chinyere Lara MD [address] [facility] [place] [place] [address] PCP - General 08/11/03 Caitlin Bravo MD [address] [place] [address] Physician Radiation Oncology 06/01/23 Belgica Rao RN Specialty Paper Ruler Oncology 06/06/23 Raven East DO [address] [place], [place] [address] Physician Hematology/Oncology 06/06/23 Neptali Lake MD [address] [place] [address] Cardiology 05/02/24 Supervisor Detasseling Crew Relationship Specialty Start Date End Date Chinyere Lara MD [address] [facility] [place] [address] PCP - General 08/11/03 Caitlin Bravo MD [address] [place] [address] Physician Radiation Oncology 06/01/23 Belgica Rao RN Specialty Paper Ruler Oncology 06/06/23 Raven East DO [address] [place], [place] [address]381 Physician Hematology/Oncology 06/06/23 Neptali Lake MD [address] [place] [address] Cardiology 05/02/24 Supervisor Detasseling Crew Relationship Specialty Start Date End Date Chinyere Lara MD [address] [place] [address] [place] [address] PCP - General 08/11/03 Caitlin Bravo MD [address] [place] [address] Physician Radiation Oncology 06/01/23 Belgica Rao RN Specialty Paper Ruler Oncology 06/06/23 Raven East DO [address] [place] [address] [phone] Physician Hematology/Oncology 06/06/23 Neptali Lake MD [address] [place] [address] Cardiology 05/02/24 Supervisor Detasseling Crew Relationship Specialty Start Date End Date Chinyere Lara MD [address] [place] [address] [place] [address] PCP - General 08/11/03 Caitlin Bravo MD [address] [place] [address] Physician Radiation Oncology 06/01/23 Belgica Rao RN Specialty Paper Ruler Oncology 06/06/23 Raven East DO [address] [place] [address] Physician Hematology/Oncology 06/06/23 Neptali Lake MD [address] [place] [address] Cardiology 05/02/24 Supervisor Detasseling Crew Relationship Specialty Start Date End Date Greg Patel MD [address] [facility] [address] [place] [address] PCP - General Family Medicine 07/26/24 Caitlin Bravo MD [address] [place] [address] Physician Radiation Oncology 06/01/23 Belgica Rao RN Specialty Paper Ruler Oncology 06/06/23 Raven East DO [address] [place], [place] [address]81 Physician Hematology/Oncology 06/06/23 Neptali Laek MD [address] [place] [address] Cardiology 05/02/24 Supervisor Detasseling Crew Relationship Specialty Start Date End Date Greg Patel MD [address] [facility] [address] [place] [address] PCP - General Family Medicine 07/26/24 Caitlin Bravo MD [address] [place] [address] Physician Radiation Oncology 06/01/23 Belgica Rao RN Specialty Paper Ruler Oncology 06/06/23 Raven East DO [address] [place] [address] Physician Hematology/Oncology 06/06/23 Neptali Lake MD [address] [place] [address] Cardiology 05/02/24 Supervisor Detasseling Crew Relationship Specialty Start Date End Date Greg Patel MD [address] [facility] [address] [place] [address] PCP - General Family Medicine 07/26/24 Caitlin Bravo MD [address] [place] [address] Physician Radiation Oncology 06/01/23 Belgica Rao RN Specialty Paper Ruler Oncology 06/06/23 Raven East DO [address] [place], [place] [address] Physician Hematology/Oncology 06/06/23 Neptali Lake MD [address] [place] [address] Cardiology 05/02/24 Supervisor Detasseling Crew Relationship Specialty Start Date End Date Greg Patel MD [address] [facility] [address] [place] [address] PCP - General Family Medicine 07/26/24 Caitlin Bravo MD [address] [place] [address] Physician Radiation Oncology 06/01/23 Belgica Rao RN Specialty Paper Ruler Oncology 06/06/23 Raven East DO [address] [place] [address] Physician Hematology/Oncology 06/06/23 Neptali Lake MD [address] [place] [address] Cardiology 05/02/24 Supervisor Detasseling Crew Relationship Specialty Start Date End Date Greg Patel MD [address] [facility] [address] [place] [address] PCP - General Family Medicine 07/26/24 Caitlin Bravo MD [address] [place] [address] Physician Radiation Oncology 06/01/23 Belgica Rao RN Specialty Paper Ruler Oncology 06/06/23 Raven East DO [address] [place], [place] [address]31 Physician Hematology/Oncology 06/06/23 Neptali Lake MD [address] [place] [address] Cardiology 05/02/24 Supervisor Detasseling Crew Relationship Specialty Start Date End Date Greg Patel MD [address] [facility] [address] [place] [address] PCP - General Family Medicine 07/26/24 Caitlin Bravo MD [address] [place] [address] Physician Radiation Oncology 06/01/23 Belgica Rao RN Specialty Paper Ruler Oncology 06/06/23 Raven East DO [address] [place] [address] Physician Hematology/Oncology 06/06/23 Neptali Lake MD [address] [place] [address] Cardiology 05/02/24 Supervisor Detasseling Crew Relationship Specialty Start Date End Date Greg Patel MD [address] [facility] [address] [place] [address] PCP - General Family Medicine 07/26/24 Caitlin Bravo MD [address] [place] [address] Physician Radiation Oncology 06/01/23 Belgica Rao RN Specialty Paper Ruler Oncology 06/06/23 Raven East DO [address] [place], [place] 66[address]11 Physician Hematology/Oncology 06/06/23 Netpali Lake MD [address] [place] [address] Cardiology 05/02/24 Supervisor Detasseling Crew Relationship Specialty Start Date End Date Greg Patel MD [address] [facility] [address] [place] [address] PCP - General Family Medicine 07/26/24 Caitlin Bravo MD [address] [place] [address] Physician Radiation Oncology 06/01/23 Belgica Rao RN Specialty Paper Ruler Oncology 06/06/23 Raven East DO [address] [place] [address] Physician Hematology/Oncology 06/06/23 Neptali Lake MD [address] [place] [address] Cardiology 05/02/24 Supervisor Detasseling Crew Relationship Specialty Start Date End Date Greg Patel MD [address] [facility] [address] [place] [address] PCP - General Family Medicine 07/26/24 Caitlin Bravo MD [address] [place] [address] Physician Radiation Oncology 06/01/23 Belgica Rao RN Specialty Paper Ruler Oncology 06/06/23 Raven East DO [address] [place], [place] 389711 Physician Hematology/Oncology 06/06/23 Neptali Lake MD [address] [place] [address] Cardiology 05/02/24 Supervisor Detasseling Crew Relationship Specialty Start Date End Date Greg Patel MD [address] [facility] [address] [place] [address] PCP - General Family Medicine 07/26/24 Caitlin Bravo MD [address] [place] [address] Physician Radiation Oncology 06/01/23 Belgica Rao RN Specialty Paper Ruler Oncology 06/06/23 Raven East DO [address] [place] [address] Physician Hematology/Oncology 06/06/23 Neptali Lake MD [address] [place] [address] Cardiology 05/02/24 Supervisor Detasseling Crew Relationship Specialty Start Date End Date Greg Patel MD [address] [facility] [address] [place] [address] PCP - General Family Medicine 07/26/24 Caitlin Bravo MD [address] [place] [address] Physician Radiation Oncology 06/01/23 Belgica Rao RN Specialty Paper Ruler Oncology 06/06/23 Raven East DO [address] [place], [place] 17[address]11 Physician Hematology/Oncology 06/06/23 Neptali Lake MD [address] [place] [address] Cardiology 05/02/24 Supervisor Detasseling Crew Relationship Specialty Start Date End Date Greg Patel MD [address] [facility] [address] [place] [address] PCP - General Family Medicine 07/26/24 Caitlin Bravo MD [address] [place] [address] Physician Radiation Oncology 06/01/23 Belgica Rao RN Specialty Paper Ruler Oncology 06/06/23 Raven East DO [address] [place] [address] Physician Hematology/Oncology 06/06/23 Neptali Lake MD [address] [place] [address] Cardiology 05/02/24 Supervisor Detasseling Crew Relationship Specialty Start Date End Date Greg Patel MD [address] [facility] [address] [place] [address] PCP - General Family Medicine 07/26/24 Caitlin Bravo MD [address] [place] [address] Physician Radiation Oncology 06/01/23 Belgica Rao RN Specialty Paper Ruler Oncology 06/06/23 Raven East DO [address] [place], [place] 943951 Physician Hematology/Oncology 06/06/23 Neptali Lake MD [address] [place] [address] Cardiology 05/02/24 Supervisor Detasseling Crew Relationship Specialty Start Date End Date Greg Patel MD [address] [facility] [address] [place] [address] PCP - General Family Medicine 07/26/24 Caitlin Bravo MD [address] [place] [address] Physician Radiation Oncology 06/01/23 Belgica Rao RN Specialty Paper Ruler Oncology 06/06/23 Raven East DO [address] [place] [address] Physician Hematology/Oncology 06/06/23 Neptali Lake MD [address] [place] [address] Cardiology 05/02/24 Supervisor Detasseling Crew Relationship Specialty Start Date End Date Caitlin Bravo MD [address] [place] [address] Physician Radiation Oncology 06/01/23 Belgica Rao RN Specialty Paper Ruler Oncology 06/06/23 Raven East DO [address] [place] [address] Physician Hematology/Oncology 06/06/23 Neptali Lake MD [address] [place] [address] Cardiology 05/02/24 Supervisor Detasseling Crew Relationship Specialty Start Date End Date Caitlin Bravo MD [address] [place] [address] Physician Radiation Oncology 06/01/23 Belgica Rao RN Specialty Paper Ruler Oncology 06/06/23 Raven East DO [address] [place] [address] Physician Hematology/Oncology 06/06/23 Neptali Lake MD [address] [place] [address] Cardiology 05/02/24 Supervisor Detasseling Crew Relationship Specialty Start Date End Date Caitlin Bravo MD [address] [place] [address] Physician Radiation Oncology 06/01/23 Belgica Rao RN Specialty Paper Ruler Oncology 06/06/23 Raven East DO [address] [place] [address] Physician Hematology/Oncology 06/06/23 Neptali Lake MD [address] [place] [address] Cardiology 05/02/24 Supervisor Detasseling Crew Relationship Specialty Start Date End Date Caitlin Bravo MD [address] [place] [address] Physician Radiation Oncology 06/01/23 Belgica Rao RN Specialty Paper Ruler Oncology 06/06/23 Raven East DO [address] [place] [address] Physician Hematology/Oncology 06/06/23 Neptali Lake MD [address] [place] [address] Cardiology 05/02/24 Supervisor Detasseling Crew Relationship Specialty Start Date End Date Caitlin Bravo MD [address] [place] [address] Physician Radiation Oncology 06/01/23 Belgica Rao RN Specialty Paper Ruler Oncology 06/06/23 Raven East DO [address] [place] [address] Physician Hematology/Oncology 06/06/23 Neptali Lake MD [address] [place] [address] Cardiology 05/02/24 Supervisor Detasseling Crew Relationship Specialty Start Date End Date Caitlin Bravo MD [address] [place] [address] Physician Radiation Oncology 06/01/23 Belgica Rao RN Specialty Paper Ruler Oncology 06/06/23 Raven East DO [address] [place], [place] [address] [phone] Physician Hematology/Oncology 06/06/23 Neptali Lake MD [address] [place] [address] Cardiology 05/02/24 Supervisor Detasseling Crew Relationship Specialty Start Date End Date Caitlin Bravo MD [address] [place] [address] Physician Radiation Oncology 06/01/23 Belgica Rao RN Specialty Paper Ruler Oncology 06/06/23 Raven East DO [address] [place] [address] Physician Hematology/Oncology 06/06/23 Neptali Lake MD [address] [place] [address] Cardiology 05/02/24 Supervisor Detasseling Crew Relationship Specialty Start Date End Date Caitlin Bravo MD [address] [place] [address] Physician Radiation Oncology 06/01/23 Belgica Rao RN Specialty Paper Ruler Oncology 06/06/23 Raven East DO [address] [place], [place] [address] Physician Hematology/Oncology 06/06/23 Neptali Lake MD [address] [place] [address] Cardiology 05/02/24 Supervisor Detasseling Crew Relationship Specialty Start Date End Date Caitlin Bravo MD [address] [place], [place] 88[address]41 Physician Radiation Oncology 06/01/23 Belgica Rao RN Specialty Paper Ruler Oncology 06/06/23 Raven East DO [address] [place], [place] [address] Physician Hematology/Oncology 06/06/23 Neptali Lake MD [address] [place], [place] [id number] Cardiology 05/02/24 Team Status: Active Member Role/Relationship Status Dates Dr. Werner Baptiste MD Primary care physician Acti ve Team Status: Inactive Member Role/Relationship Status Dates Dr. Osman Pelletier MD Attending physician Active St art: April 22, 2025 End: April 22, 2025 Dr. Osman Pelletier MD Emergency Department Physician Active Start: April 22, 2025 End: April 22, 2025 Dr. Werner Baptiste MD Primary care physician Acti ve Start: April 22, 2025 End: April 22, 2025 Goals (unrecognized section and content) Goals may be documented in a n alternate sectionGoals may be documented in an alternate sectionGoals may be documented in an alternate section Source Comments (unrecognize d section and content) In the event this informatio n is protected by the Federal Confidentiality of Alcohol and Drug Abuse Patient Records regulations: The Federal rules restrict any use of the information to criminally investigate or prosecute any alcohol or drug abuse patient.[facility] Center[facility] the event this information is protected by the Federal Confidentiality of Alcohol and Drug Abuse Patient Records regulations: The Federal rules restrict any use of the information to criminally investigate or prosecute any alcohol or drug abuse patient.[facility] CenterIn the event this information is protected by the Federal Confidentiality of Alcohol and Drug Abuse Patient Records regulations: The Federal rules restrict any use of the information to criminally investigate or prosecute any alcohol or drug abuse patient.[facility] CenterIn the event this information is protected by the Federal Confidentiality of Alcohol and Drug Abuse Patient Records regulations: The Federal rules restrict any use of the information to criminally investigate or prosecute any alcohol or drug abuse patient.[facility] CenterIn the event this information is protected by the Federal Confidentiality of Alcohol and Drug Abuse Patient Records regulations: The Federal rules restrict any use of the information to criminally investigate or prosecute any alcohol or drug abuse patient.[facility] CenterIn the event this information is protected by the Federal Confidentiality of Alcohol and Drug Abuse Patient Records regulations: The Federal rules restrict any use of the information to criminally investigate or prosecute any alcohol or drug abuse patient.[facility] CenterIn the event this information is protected by the Federal Confidentiality of Alcohol and Drug Abuse Patient Records regulations: The Federal rules restrict any use of the information to criminally investigate or prosecute any alcohol or drug abuse patient.[facility] CenterIn the event this information is protected by the Federal Confidentiality of Alcohol and Drug Abuse Patient Records regulations: The Federal rules restrict any use of the information to criminally investigate or prosecute any alcohol or drug abuse patient.[facility] CenterIn the event this information is protected by the Federal Confidentiality of Alcohol and Drug Abuse Patient Records regulations: The Federal rules restrict any use of the information to criminally investigate or prosecute any alcohol or drug abuse patient.[facility] CenterIn the event this information is protected by the Federal Confidentiality of Alcohol and Drug Abuse Patient Records regulations: The Federal rules restrict any use of the information to criminally investigate or prosecute any alcohol or drug abuse patient.[facility] CenterIn the event this information is protected by the Federal Confidentiality of Alcohol and Drug Abuse Patient Records regulations: The Federal rules restrict any use of the information to criminally investigate or prosecute any alcohol or drug abuse patient.[facility] CenterIn the event this information is protected by the Federal Confidentiality of Alcohol and Drug Abuse Patient Records regulations: The Federal rules restrict any use of the information to criminally investigate or prosecute any alcohol or drug abuse patient.[facility] CenterIn the event this information is protected by the Federal Confidentiality of Alcohol and Drug Abuse Patient Records regulations: The Federal rules restrict any use of the information to criminally investigate or prosecute any alcohol or drug abuse patient.[facility] CenterIn the event this information is protected by the Federal Confidentiality of Alcohol and Drug Abuse Patient Records regulations: The Federal rules restrict any use of the information to criminally investigate or prosecute any alcohol or drug abuse patient.[facility] CenterIn the event this information is protected by the Federal Confidentiality of Alcohol and Drug Abuse Patient Records regulations: The Federal rules restrict any use of the information to criminally investigate or prosecute any alcohol or drug abuse patient.[facility] CenterIn the event this information is protected by the Federal Confidentiality of Alcohol and Drug Abuse Patient Records regulations: The Federal rules restrict any use of the information to criminally investigate or prosecute any alcohol or drug abuse patient.[facility] CenterIn the event this information is protected by the Federal Confidentiality of Alcohol and Drug Abuse Patient Records regulations: The Federal rules restrict any use of the information to criminally investigate or prosecute any alcohol or drug abuse patient.[facility]In the event this information is protected by the Federal Confidentiality of Alcohol and Drug Abuse Patient Records regulations: The Federal rules restrict any use of the information to criminally investigate or prosecute any alcohol or drug abuse patient.[facility] CenterIn the event this information is protected by the Federal Confidentiality of Alcohol and Drug Abuse Patient Records regulations: The Federal rules restrict any use of the information to criminally investigate or prosecute any alcohol or drug abuse patient.[facility] CenterIn the event this information is protected by the Federal Confidentiality of Alcohol and Drug Abuse Patient Records regulations: The Federal rules restrict any use of the information to criminally investigate or prosecute any alcohol or drug abuse patient.[facility] CenterIn the event this information is protected by the Federal Confidentiality of Alcohol and Drug Abuse Patient Records regulations: The Federal rules restrict any use of the information to criminally investigate or prosecute any alcohol or drug abuse patient.[facility] CenterIn the event this information is protected by the Federal Confidentiality of Alcohol and Drug Abuse Patient Records regulations: The Federal rules restrict any use of the information to criminally investigate or prosecute any alcohol or drug abuse patient.[facility] CenterIn the event this information is protected by the Federal Confidentiality of Alcohol and Drug Abuse Patient Records regulations: The Federal rules restrict any use of the information to criminally investigate or prosecute any alcohol or drug abuse patient.[facility] CenterIn the event this information is protected by the Federal Confidentiality of Alcohol and Drug Abuse Patient Records regulations: The Federal rules restrict any use of the information to criminally investigate or prosecute any alcohol or drug abuse patient.[facility] CenterIn the event this information is protected by the Federal Confidentiality of Alcohol and Drug Abuse Patient Records regulations: The Federal rules restrict any use of the information to criminally investigate or prosecute any alcohol or drug abuse patient.[facility] CenterIn the event this information is protected by the Federal Confidentiality of Alcohol and Drug Abuse Patient Records regulations: The Federal rules restrict any use of the information to criminally investigate or prosecute any alcohol or drug abuse patient.[facility] CenterIn the event this information is protected by the Federal Confidentiality of Alcohol and Drug Abuse Patient Records regulations: The Federal rules restrict any use of the information to criminally investigate or prosecute any alcohol or drug abuse patient.[facility] CenterIn the event this information is protected by the Federal Confidentiality of Alcohol and Drug Abuse Patient Records regulations: The Federal rules restrict any use of the information to criminally investigate or prosecute any alcohol or drug abuse patient.[facility] CenterIn the event this information is protected by the Federal Confidentiality of Alcohol and Drug Abuse Patient Records regulations: The Federal rules restrict any use of the information to criminally investigate or prosecute any alcohol or drug abuse patient.[facility] CenterIn the event this information is protected by the Federal Confidentiality of Alcohol and Drug Abuse Patient Records regulations: The Federal rules restrict any use of the information to criminally investigate or prosecute any alcohol or drug abuse patient.[facility] CenterIn the event this information is protected by the Federal Confidentiality of Alcohol and Drug Abuse Patient Records regulations: The Federal rules restrict any use of the information to criminally investigate or prosecute any alcohol or drug abuse patient.[facility] CenterIn the event this information is protected by the Federal Confidentiality of Alcohol and Drug Abuse Patient Records regulations: The Federal rules restrict any use of the information to criminally investigate or prosecute any alcohol or drug abuse patient.[facility] CenterIn the event this information is protected by the Federal Confidentiality of Alcohol and Drug Abuse Patient Records regulations: The Federal rules restrict any use of the information to criminally investigate or prosecute any alcohol or drug abuse patient.[facility] CenterIn the event this information is protected by the Federal Confidentiality of Alcohol and Drug Abuse Patient Records regulations: The Federal rules restrict any use of the information to criminally investigate or prosecute any alcohol or drug abuse patient.[facility] CenterIn the event this information is protected by the Federal Confidentiality of Alcohol and Drug Abuse Patient Records regulations: The Federal rules restrict any use of the information to criminally investigate or prosecute any alcohol or drug abuse patient.[facility] CenterIn the event this information is protected by the Federal Confidentiality of Alcohol and Drug Abuse Patient Records regulations: The Federal rules restrict any use of the information to criminally investigate or prosecute any alcohol or drug abuse patient.[facility] CenterIn the event this information is protected by the Federal Confidentiality of Alcohol and Drug Abuse Patient Records regulations: The Federal rules restrict any use of the information to criminally investigate or prosecute any alcohol or drug abuse patient.[facility] CenterIn the event this information is protected by the Federal Confidentiality of Alcohol and Drug Abuse Patient Records regulations: The Federal rules restrict any use of the information to criminally investigate or prosecute any alcohol or drug abuse patient.[facility] CenterIn the event this information is protected by the Federal Confidentiality of Alcohol and Drug Abuse Patient Records regulations: The Federal rules restrict any use of the information to criminally investigate or prosecute any alcohol or drug abuse patient.[facility]In the event this information is protected by the Federal Confidentiality of Alcohol and Drug Abuse Patient Records regulations: The Federal rules restrict any use of the information to criminally investigate or prosecute any alcohol or drug abuse patient.[facility] CenterIn the event this information is protected by the Federal Confidentiality of Alcohol and Drug Abuse Patient Records regulations: The Federal rules restrict any use of the information to criminally investigate or prosecute any alcohol or drug abuse patient.[facility] CenterIn the event this information is protected by the Federal Confidentiality of Alcohol and Drug Abuse Patient Records regulations: The Federal rules restrict any use of the information to criminally investigate or prosecute any alcohol or drug abuse patient.[facility]In the event this information is protected by the Federal Confidentiality of Alcohol and Drug Abuse Patient Records regulations: The Federal rules restrict any use of the information to criminally investigate or prosecute any alcohol or drug abuse patient.[facility]In the event this information is protected by the Federal Confidentiality of Alcohol and Drug Abuse Patient Records regulations: The Federal rules restrict any use of the information to criminally investigate or prosecute any alcohol or drug abuse patient.[facility]In the event this information is protected by the Federal Confidentiality of Alcohol and Drug Abuse Patient Records regulations: The Federal rules restrict any use of the information to criminally investigate or prosecute any alcohol or drug abuse patient.[facility]In the event this information is protected by the Federal Confidentiality of Alcohol and Drug Abuse Patient Records regulations: The Federal rules restrict any use of the information to criminally investigate or prosecute any alcohol or drug abuse patient.[facility]In the event this information is protected by the Federal Confidentiality of Alcohol and Drug Abuse Patient Records regulations: The Federal rules restrict any use of the information to criminally investigate or prosecute any alcohol or drug abuse patient.[facility]In the event this information is protected by the Federal Confidentiality of Alcohol and Drug Abuse Patient Records regulations: The Federal rules restrict any use of the information to criminally investigate or prosecute any alcohol or drug abuse patient.[facility]In the event this information is protected by the Federal Confidentiality of Alcohol and Drug Abuse Patient Records regulations: The Federal rules restrict any use of the information to criminally investigate or prosecute any alcohol or drug abuse patient.[facility]In the event this information is protected by the Federal Confidentiality of Alcohol and Drug Abuse Patient Records regulations: The Federal rules restrict any use of the information to criminally investigate or prosecute any alcohol or drug abuse patient.[facility]In the event this information is protected by the Federal Confidentiality of Alcohol and Drug Abuse Patient Records regulations: The Federal rules restrict any use of the information to criminally investigate or prosecute any alcohol or drug abuse patient.[facility]In the event this information is protected by the Federal Confidentiality of Alcohol and Drug Abuse Patient Records regulations: The Federal rules restrict any use of the information to criminally investigate or prosecute any alcohol or drug abuse patient.[facility]In the event this information is protected by the Federal Confidentiality of Alcohol and Drug Abuse Patient Records regulations: The Federal rules restrict any use of the information to criminally investigate or prosecute any alcohol or drug abuse patient.[facility]In the event this information is protected by the Federal Confidentiality of Alcohol and Drug Abuse Patient Records regulations: The Federal rules restrict any use of the information to criminally investigate or prosecute any alcohol or drug abuse patient.[facility]In the event this information is protected by the Federal Confidentiality of Alcohol and Drug Abuse Patient Records regulations: The Federal rules restrict any use of the information to criminally investigate or prosecute any alcohol or drug abuse patient.[facility]In the event this information is protected by the Federal Confidentiality of Alcohol and Drug Abuse Patient Records regulations: The Federal rules restrict any use of the information to criminally investigate or prosecute any alcohol or drug abuse patient.[facility]In the event this information is protected by the Federal Confidentiality of Alcohol and Drug Abuse Patient Records regulations: The Federal rules restrict any use of the information to criminally investigate or prosecute any alcohol or drug abuse patient.[facility]In the event this information is protected by the Federal Confidentiality of Alcohol and Drug Abuse Patient Records regulations: The Federal rules restrict any use of the information to criminally investigate or prosecute any alcohol or drug abuse patient.[facility]In the event this information is protected by the Federal Confidentiality of Alcohol and Drug Abuse Patient Records regulations: The Federal rules restrict any use of the information to criminally investigate or prosecute any alcohol or drug abuse patient.[facility]In the event this information is protected by the Federal Confidentiality of Alcohol and Drug Abuse Patient Records regulations: The Federal rules restrict any use of the information to criminally investigate or prosecute any alcohol or drug abuse patient.[facility]In the event this information is protected by the Federal Confidentiality of Alcohol and Drug Abuse Patient Records regulations: The Federal rules restrict any use of the information to criminally investigate or prosecute any alcohol or drug abuse patient.[facility]In the event this information is protected by the Federal Confidentiality of Alcohol and Drug Abuse Patient Records regulations: The Federal rules restrict any use of the information to criminally investigate or prosecute any alcohol or drug abuse patient.[facility]In the event this information is protected by the Federal Confidentiality of Alcohol and Drug Abuse Patient Records regulations: The Federal rules restrict any use of the information to criminally investigate or prosecute any alcohol or drug abuse patient.[facility]In the event this information is protected by the Federal Confidentiality of Alcohol and Drug Abuse Patient Records regulations: The Federal rules restrict any use of the information to criminally investigate or prosecute any alcohol or drug abuse patient.[facility]In the event this information is protected by the Federal Confidentiality of Alcohol and Drug Abuse Patient Records regulations: The Federal rules restrict any use of the information to criminally investigate or prosecute any alcohol or drug abuse patient.[facility]In the event this information is protected by the Federal Confidentiality of Alcohol and Drug Abuse Patient Records regulations: The Federal rules restrict any use of the information to criminally investigate or prosecute any alcohol or drug abuse patient.[facility]In the event this information is protected by the Federal Confidentiality of Alcohol and Drug Abuse Patient Records regulations: The Federal rules restrict any use of the information to criminally investigate or prosecute any alcohol or drug abuse patient.[facility]In the event this information is protected by the Federal Confidentiality of Alcohol and Drug Abuse Patient Records regulations: The Federal rules restrict any use of the information to criminally investigate or prosecute any alcohol or drug abuse patient.[facility]In the event this information is protected by the Federal Confidentiality of Alcohol and Drug Abuse Patient Records regulations: The Federal rules restrict any use of the information to criminally investigate or prosecute any alcohol or drug abuse patient.[facility]In the event this information is protected by the Federal Confidentiality of Alcohol and Drug Abuse Patient Records regulations: The Federal rules restrict any use of the information to criminally investigate or prosecute any alcohol or drug abuse patient.[facility]In the event this information is protected by the Federal Confidentiality of Alcohol and Drug Abuse Patient Records regulations: The Federal rules restrict any use of the information to criminally investigate or prosecute any alcohol or drug abuse patient.[facility]In the event this information is protected by the Federal Confidentiality of Alcohol and Drug Abuse Patient Records regulations: The Federal rules restrict any use of the information to criminally investigate or prosecute any alcohol or drug abuse patient.[facility]In the event this information is protected by the Federal Confidentiality of Alcohol and Drug Abuse Patient Records regulations: The Federal rules restrict any use of the information to criminally investigate or prosecute any alcohol or drug abuse patient.[facility]In the event this information is protected by the Federal Confidentiality of Alcohol and Drug Abuse Patient Records regulations: The Federal rules restrict any use of the information to criminally investigate or prosecute any alcohol or drug abuse patient.[facility]In the event this information is protected by the Federal Confidentiality of Alcohol and Drug Abuse Patient Records regulations: The Federal rules restrict any use of the information to criminally investigate or prosecute any alcohol or drug abuse patient.[facility]In the event this information is protected by the Federal Confidentiality of Alcohol and Drug Abuse Patient Records regulations: The Federal rules restrict any use of the information to criminally investigate or prosecute any alcohol or drug abuse patient.[facility]In the event this information is protected by the Federal Confidentiality of Alcohol and Drug Abuse Patient Records regulations: The Federal rules restrict any use of the information to criminally investigate or prosecute any alcohol or drug abuse patient.[facility]In the event this information is protected by the Federal Confidentiality of Alcohol and Drug Abuse Patient Records regulations: The Federal rules restrict any use of the information to criminally investigate or prosecute any alcohol or drug abuse patient.[facility]In the event this information is protected by the Federal Confidentiality of Alcohol and Drug Abuse Patient Records regulations: The Federal rules restrict any use of the information to criminally investigate or prosecute any alcohol or drug abuse patient.[facility]In the event this information is protected by the Federal Confidentiality of Alcohol and Drug Abuse Patient Records regulations: The Federal rules restrict any use of the information to criminally investigate or prosecute any alcohol or drug abuse patient.[facility]In the event this information is protected by the Federal Confidentiality of Alcohol and Drug Abuse Patient Records regulations: The Federal rules restrict any use of the information to criminally investigate or prosecute any alcohol or drug abuse patient.[facility]In the event this information is protected by the Federal Confidentiality of Alcohol and Drug Abuse Patient Records regulations: The Federal rules restrict any use of the information to criminally investigate or prosecute any alcohol or drug abuse patient.[facility]In the event this information is protected by the Federal Confidentiality of Alcohol and Drug Abuse Patient Records regulations: The Federal rules restrict any use of the information to criminally investigate or prosecute any alcohol or drug abuse patient.[facility]In the event this information is protected by the Federal Confidentiality of Alcohol and Drug Abuse Patient Records regulations: The Federal rules restrict any use of the information to criminally investigate or prosecute any alcohol or drug abuse patient.[facility]In the event this information is protected by the Federal Confidentiality of Alcohol and Drug Abuse Patient Records regulations: The Federal rules restrict any use of the information to criminally investigate or prosecute any alcohol or drug abuse patient.[facility]In the event this information is protected by the Federal Confidentiality of Alcohol and Drug Abuse Patient Records regulations: The Federal rules restrict any use of the information to criminally investigate or prosecute any alcohol or drug abuse patient.[facility]In the event this information is protected by the Federal Confidentiality of Alcohol and Drug Abuse Patient Records regulations: The Federal rules restrict any use of the information to criminally investigate or prosecute any alcohol or drug abuse patient.[facility]In the event this information is protected by the Federal Confidentiality of Alcohol and Drug Abuse Patient Records regulations: The Federal rules restrict any use of the information to criminally investigate or prosecute any alcohol or drug abuse patient.[facility]In the event this information is protected by the Federal Confidentiality of Alcohol and Drug Abuse Patient Records regulations: The Federal rules restrict any use of the information to criminally investigate or prosecute any alcohol or drug abuse patient.[facility]In the event this information is protected by the Federal Confidentiality of Alcohol and Drug Abuse Patient Records regulations: The Federal rules restrict any use of the information to criminally investigate or prosecute any alcohol or drug abuse patient.[facility]In the event this information is protected by the Federal Confidentiality of Alcohol and Drug Abuse Patient Records regulations: The Federal rules restrict any use of the information to criminally investigate or prosecute any alcohol or drug abuse patient.[facility]In the event this information is protected by the Federal Confidentiality of Alcohol and Drug Abuse Patient Records regulations: The Federal rules restrict any use of the information to criminally investigate or prosecute any alcohol or drug abuse patient.[facility]In the event this information is protected by the Federal Confidentiality of Alcohol and Drug Abuse Patient Records regulations: The Federal rules restrict any use of the information to criminally investigate or prosecute any alcohol or drug abuse patient.[facility]In the event this information is protected by the Federal Confidentiality of Alcohol and Drug Abuse Patient Records regulations: The Federal rules restrict any use of the information to criminally investigate or prosecute any alcohol or drug abuse patient.[facility]In the event this information is protected by the Federal Confidentiality of Alcohol and Drug Abuse Patient Records regulations: The Federal rules restrict any use of the information to criminally investigate or prosecute any alcohol or drug abuse patient.[facility]In the event this information is protected by the Federal Confidentiality of Alcohol and Drug Abuse Patient Records regulations: The Federal rules restrict any use of the information to criminally investigate or prosecute any alcohol or drug abuse patient.[facility]In the event this information is protected by the Federal Confidentiality of Alcohol and Drug Abuse Patient Records regulations: The Federal rules restrict any use of the information to criminally investigate or prosecute any alcohol or drug abuse patient.[facility]In the event this information is protected by the Federal Confidentiality of Alcohol and Drug Abuse Patient Records regulations: The Federal rules restrict any use of the information to criminally investigate or prosecute any alcohol or drug abuse patient.[facility]In the event this information is protected by the Federal Confidentiality of Alcohol and Drug Abuse Patient Records regulations: The Federal rules restrict any use of the information to criminally investigate or prosecute any alcohol or drug abuse patient.[facility]In the event this information is protected by the Federal Confidentiality of Alcohol and Drug Abuse Patient Records regulations: The Federal rules restrict any use of the information to criminally investigate or prosecute any alcohol or drug abuse patient.[facility]In the event this information is protected by the Federal Confidentiality of Alcohol and Drug Abuse Patient Records regulations: The Federal rules restrict any use of the information to criminally investigate or prosecute any alcohol or drug abuse patient.[facility]In the event this information is protected by the Federal Confidentiality of Alcohol and Drug Abuse Patient Records regulations: The Federal rules restrict any use of the information to criminally investigate or prosecute any alcohol or drug abuse patient.[facility]In the event this information is protected by the Federal Confidentiality of Alcohol and Drug Abuse Patient Records regulations: The Federal rules restrict any use of the information to criminally investigate or prosecute any alcohol or drug abuse patient.[facility] Center[facility] the event this information is protected by the Federal Confidentiality of Alcohol and Drug Abuse Patient Records regulations: The Federal rules restrict any use of the information to criminally investigate or prosecute any alcohol or drug abuse patient.[facility] CenterIn the event this information is protected by the Federal Confidentiality of Alcohol and Drug Abuse Patient Records regulations: The Federal rules restrict any use of the information to criminally investigate or prosecute any alcohol or drug abuse patient.[facility] CenterIn the event this information is protected by the Federal Confidentiality of Alcohol and Drug Abuse Patient Records regulations: The Federal rules restrict any use of the information to criminally investigate or prosecute any alcohol or drug abuse patient.[facility] CenterIn the event this information is protected by the Federal Confidentiality of Alcohol and Drug Abuse Patient Records regulations: The Federal rules restrict any use of the information to criminally investigate or prosecute any alcohol or drug abuse patient.[facility] CenterIn the event this information is protected by the Federal Confidentiality of Alcohol and Drug Abuse Patient Records regulations: The Federal rules restrict any use of the information to criminally investigate or prosecute any alcohol or drug abuse patient.[facility] CenterIn the event this information is protected by the Federal Confidentiality of Alcohol and Drug Abuse Patient Records regulations: The Federal rules restrict any use of the information to criminally investigate or prosecute any alcohol or drug abuse patient.[facility] Reason for Visit (unrecogniz ed section and content) Reason Comments PT Discharge Specialty Diagnoses / Procedures Referred By Contac t Referred To Contact Physical Therapy / PHYSICAL THERAPY Diagnoses M54.50 (ICD-10-CM) - Acute right-sided low back pain without sciatica Procedures THERAPEUTIC EXERCISES RE, EA 15 MIN. Chinyere Lara MD [address] [place] [address] Phone: tel: fax: [facility] [address] [place] [address] Phone: tel: fax: Referral ID Status Reason Start Date Expiration Date V isits Requested Visits Authorized [id number] Authorized 07/03/2024 07/02/2025 30 30 Reason Comments Physical Therapy Specialty Diagnoses / Procedures Referred By Contac t Referred To Contact Physical Therapy / PHYSICAL THERAPY Diagnoses M54.50 (ICD-10-CM) - Acute right-sided low back pain without sciatica Procedures THERAPEUTIC EXERCISES RE, EA 15 MIN. Chinyere Lara MD [address] [place] [address] [facility] [address] [place] [address] Specialty Diagnoses / Procedures Referred By Contac t Referred To Contact [facility] Diagnoses Acute right-sided low back pain without sciatica Procedures CONSULT TO PHYSICAL THERAPY PHYSICAL THERAPY EVALUATION HIGH COMPLEX 45 MINS Raven East DO [address] [address] [facility] [place] [address] [place] [address] Referral ID Status Reason Start Date Expiration Date Visits Requested Visits Authorized [id number] Authorized Auto-Generat ed Referral 07/03/2023 07/02/2024 30 30 Reason Comments Non-Chemotherapy Treatment Specialty Diagnoses / Procedures [facility] Referred To Contact Diagnoses Small cell lung cancer, unspecified laterality (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) Procedures ETOPOSIDE 10 MG INJ CISPLATIN 10 MG INJECTION FOSAPREPITANT INJECTION INJ, NYVEPRIA, 0.5 MG Raven East, DO [address] [place] [address] [facility] [address] [place] [address] Referral ID Status Reason Start Date Expiration Date V isits Requested Visits Authorized [id number] Authorized 06/05/2023 03/31/2024 12 15 Reason Comments Chemotherapy Treatment Reason Comments Established Patient Specialty Diagnoses / Procedures [facility] Referred To Contact Hematology/Oncology / HEMATOLOGY/ONCOLOGY Diagnoses Follow-up exam OV/LABS EARLY/ TREATMENT 07/10* Weekly BMP/Mg x12 weeks. Procedures OFFICE/OUTPATIENT ESTABLISHED MOD MDM 30-39 MIN EST PATIENT W/CHEMO Raven East, DO [address] [place] [address] Raven East, DO [address] [place] [address] Referral ID Status Reason Start Date Expiration Date V isits Requested Visits Authorized [id number] Outside PCP 07/06/2023 10/04/2023 [address] Specialty Diagnoses / Procedures Referred By [facility] Referred To Contact CT IMAGING Diagnoses Malignant neoplasm of unspecified part of unspecified bronchus or lung (HCC) Small cell lung cancer (HCC) Procedures CT CHEST W IVCON DIAGNOSTIC COMPUTED TOMOGRAPHY THORAX W/CONTRAST Raven East, DO [address] [place] [address] [place] [id number] Referral ID Status Reason Start Date Expiration Date V isits Requested Visits Authorized [id number] Closed Auto-Generate d Referral 06/01/2023 06/30/2024 1 1 Reason Comments New Patient Specialty Diagnoses / Procedures Referred By Conteric t Referred To Contact MR IMAGING Diagnoses Malignant neoplasm of unspecified part of unspecified bronchus or lung (HCC) Small cell lung cancer (HCC) Procedures MRI BRAIN WO/W IVCON MRI BRAIN BRAIN STEM W/O W/CONTRAST MATERIAL Raven East, DO [address] [place] [address] Mr Imaging [facility] Referral ID Status Reason Start Date Expiration Date V isits Requested Visits Authorized [id number] Closed Auto-Generate d Referral 06/01/2023 06/30/2024 1 1 Reason Comments Paper Ruler - Other Introduction Reason Comments Reason Comments Radiology NM Reason Comments Patient Education Reason Comments First Time Treatment Education Cisplatin /Etoposide Reason Comments AVS 06/02 CHEMO START Reason Onset Date Comments Simulation Request Form 06/07/2023 Reason Comments Insurance Inquiry Reason Comments Imm/Inj Referral ID Status Reason Start Date Expiration Date V isits Requested Visits Authorized [id number] Pending Review 06/05/2023 03/06/2024 99 99 Reason Comments Recheck Reason Comments Transfusion Reason Comments Insurance Authorization Reason Comments Established Patient Specialty Diagnoses / Procedures Referred By Lo t Referred To Contact Hematology/Oncology / HEMATOLOGY/ONCOLOGY Diagnoses Follow-up exam OV/LABS EARLY/ TREATMENT 07/10* Weekly BMP/Mg x12 weeks. 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) Small cell lung cancer (HCC) Procedures CT CHEST W IVCON DIAGNOSTIC COMPUTED TOMOGRAPHY THORAX W/CONTRAST Raven East, DO [address] [place] [address] [place] [address] Referral ID Status Reason Start Date Expiration Date V isits Requested Visits Authorized [id number] Closed Auto-Generate d Referral 09/01/2023 02/28/2024 1 1 Specialty Diagnoses / Procedures Referred By Contac t Referred To Contact MR IMAGING Diagnoses Malignant neoplasm of unspecified part of unspecified bronchus or lung (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) Small cell lung cancer (HCC) Procedures MRI BRAIN WO/W IVCON MRI BRAIN BRAIN STEM W/O W/CONTRAST MATERIAL Raven East, DO [address] [place] [address] [place] [address] Referral ID Status Reason Start Date Expiration Date V isits Requested Visits Authorized [id number] Closed Auto-Generate d Referral 09/01/2023 02/28/2024 [address] Reason Comments Paper Ruler - Other Symptoms Reason Comments Radiotherapy On-treatment Visit Reason Onset Date Comments Simulation Request Form 10/09/2023 Reason Comments Established Patient Specialty Diagnoses / Procedures [facility] Diagnoses Small cell lung cancer (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) Procedures CT NECK SOFT TISSUE W IVCON CT SOFT TISSUE NECK W/CONTRAST MATERIAL Raven East, DO [address] [place] [address] [place] [address] Referral ID Status Reason Start Date Expiration Date V isits Requested Visits Authorized [id number] Closed Auto-Generate d Referral 11/09/2023 05/07/2024 [address] Reason Comments Pain Reason Comments 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 Reason Comments Dizziness Reason Comments Established Patient Reason Comments Results Specialty Diagnoses / Procedures [facility] Diagnoses Small cell lung cancer, unspecified laterality (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) Procedures MRI BRAIN WO/W IVCON MRI BRAIN BRAIN STEM W/O W/CONTRAST MATERIAL Raven East, DO [address] [place] [address] [place] [address] Referral ID Status Reason Start Date Expiration Date V isits Requested Visits Authorized [id number] Closed Auto-Generat ed Referral Patient Cleared - Admin/Chairm an/Director advise to proceed or did not respond 12/28/2023 06/25/2024 1 1 Specialty Diagnoses / Procedures Referred By [facility] Referred To Contact CT IMAGING Diagnoses Small cell lung cancer (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 Pt reports having some dizziness and SOB. 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) Procedures CONSULT TO CARDIOLOGY OFFICE/OUTPATIENT NEW HIGH MDM 60 MINUTES Raven East, DO [address] [place] [address] Referral ID Status Reason Start Date Expiration Date V isits Requested Visits Authorized [id number] Closed PCP Requested Referral 02/12/2024 02/11/2025 1 1 Reason Comments Patient Question Reason Comments Results NM stress and ECHO Reason Comments New Patient Specialty Diagnoses / Procedures [facility] Ref[facility] To Contact CT [facility] Diagnoses Small cell lung cancer, unspecified laterality (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) Procedures CT NECK SOFT TISSUE W IVCON CT SOFT TISSUE NECK W/CONTRAST MATERIAL CT ABD & PELVIS W/CONTRAST DIAGNOSTIC COMPUTED TOMOGRAPHY THORAX W/CONTRAST Raven East, DO [address] [place] [address] Ct [facility] [place] [address] Referral ID Status Reason Start Date Expiration Date V isits Requested Visits Authorized [id number] Closed Auto-Generate d Referral 01/02/2024 10/02/2024 1 1 Reason Comments Established Patient Reason Comments Spirometry Specialty Diagnoses / Procedures [facility] Diagnoses Small cell lung cancer, unspecified laterality (HCC) Dyspnea and respiratory abnormalities Procedures LUNG DIFFUSION CAPACITY (DLCO) DIFFUSING CAPACITY Raven East, DO [address] [place] [address] [place] [address] Referral ID Status Reason Start Date Expiration Date V isits Requested Visits Authorized [id number] Closed Auto-Generate d Referral 05/02/2024 06/01/2025 1 1 Specialty Diagnoses / Procedures Referred By [facility] Referred To Contact [facility] Diagnoses Small cell lung cancer, unspecified laterality (HCC) Dyspnea and respiratory abnormalities Procedures SPIROMETRY - BASELINE AND POST DILATOR BRNCDILAT RSPSE SPMTRY PRE&POST-BRNCDILAT ADMN Raven East, DO [address] [place] [address] [facility] [address] [place] [address] Referral ID Status Reason Start Date Expiration Date V isits Requested Visits Authorized [id number] Closed Auto-Generate d Referral 05/02/2024 06/01/2025 1 1 Reason Comments Disability Assistance Reason Comments PT Eval Reason Comments Results Disc Specialty Diagnoses / Procedures [facility] Ref[facility] To Contact CT [facility] Diagnoses Encounter for follow-up surveillance of lung cancer Small cell lung cancer, unspecified laterality (HCC) Dyspnea and respiratory abnormalities Procedures CT NECK SOFT TISSUE W IVCON CT SOFT TISSUE NECK W/CONTRAST MATERIAL Xiao Perez, CHEESE TESTER.[facility] [address] [place] [address] Phone: tel: fax: [place] [address] Referral ID Status Reason Start Date Expiration Date V isits Requested Visits Authorized [id number] Closed Auto-Generate d Referral 10/11/2024 04/09/2025 1 1 Reason Comments Appointment Specialty Diagnoses / Procedures Referred By Lo t Referred To Contact CT IMAGING Diagnoses 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) Procedures CT ABD/PEL W IVCON CT ABD & PELVIS W/CONTRAST Raven East, DO [address] [place] [address] Phone: tel: fax: [place] [address] Referral ID Status Reason Start Date Expiration Date V isits Requested Visits Authorized [id number] Closed Auto-Generate d Referral 01/30/2025 07/29/2025 1 1 Reason Comments Established Patient Reason Comments Radiology Pre Procedure Instructions Med port insertion Reason Comments Blood Draw (CVAD) Reason Comments Port Flush Inactive Administered Medications - up to 3 most recent administrations Administered Medications (un recognized section and content) Medication Order MAR Action Action Date Dose Rate Site pegfilgrastim-cbqv 6 mg injection (UDENYCA) 6 mg, SUBCUTANEOUS, ONCE, 1 dose, On Mon08/03/23 at 1430, Refrigerate - Protect From Light - Do Not Shake - Allow prefilled syringe to reach room temperature for at least 30 minutes prior to injection. Given 08/03/2023 2:25 PM EST 6 mg Arm, Left Inactive Administered Medications - up to 3 most recent administrations Medication Order MAR Action Action Date Dose Rate Site etoposide 182 mg in NaCl 0.9% 549.1 mL 182 mg (100 mg/m2 1.82 m2 Treatment Plan BSA from Recorded weight), INTRAVENOUS, Administer over 1 Hours, ONCE, 1 dose, On Mon08/29/23 at 0830, exp 1800 08/29/23 (room temp) Hazardous Chemotherapy Drug: Use appropriate PPE. Protect from Light. Administer with non-DEHP 0.2 micron filter and tubing. New Bag/Syringe/Bottle 08/29/2023 9:00 AM EST 182 mg 549 mL/hr NaCl 0.9% iv infusion 500-999 mL/hr, INTRAVENOUS, NEEDED, 1 dose, Starting on Mon08/29/23 at 0814, Until Mon08/29/23 at 0916, Hypotension (titrate to maintain SBP greater than 100), Administer per hypersensitivity/anaphyla xis grading in nursing communication New Bag/Syringe/Bottle 08/29/2023 8:16 AM EST 999 mL/hr 999 mL/hr ondansetron (PF) 8 mg injection (ZOFRAN) 8 mg, INTRAVENOUS, ONCE, 1 dose, On Mon08/29/23 at 0830, Medication Substitution: [facility] preferred product has been replaced with the insurance mandated product Given 08/29/2023 8:41 AM EST 8 mg Inactive Administered Medications - up to 3 most recent administrations Medication Order MAR Action Action Date Dose Rate Site etoposide 182 mg in NaCl 0.9% 549.1 mL 182 mg (100 mg/m2 1.82 m2 Treatment Plan BSA from Recorded weight), INTRAVENOUS, Administer over 1 Hours, ONCE, 1 dose, On Mon08/30/23 at 0800, exp 199908/30/23 (room temp) Hazardous Chemotherapy Drug: Use appropriate PPE. Protect from Light. Administer with non-DEHP 0.2 micron filter and tubing. New Bag/Syringe/Bottle 08/30/2023 8:10 AM EST 182 mg NaCl 0.9% 1,000 mL INTRAVENOUS, at 999 mL/hr, Administer over 1 Hours, ONCE, 1 dose, On Mon08/30/23 at 0800 New Bag/Syringe/Bottle 08/30/2023 8:04 AM EST 999 mL/hr ondansetron (PF) 8 mg injection (ZOFRAN) 8 mg, INTRAVENOUS, ONCE, 1 dose, On Mon08/30/23 at 0800, Medication Substitution: [facility] preferred product has been replaced with the insurance mandated product Given 08/30/2023 8:06 AM EST 8 mg Inactive Administered Medications - up to 3 most recent administrations Medication Order MAR Action Action Date Dose Rate Site pegfilgrastim-apgf 6 mg injection (NYVEPRIA) 6 mg, SUBCUTANEOUS, ONCE, 1 dose, On Mon08/31/23 at 1030, Refrigerate - Protect from light Given 08/31/2023 10:37 AM EST 6 mg Arm, Right Inactive Administered Medications - up to 3 most recent administrations Medication Order MAR Action Action Date Dose Rate Site NaCl 0.9% iv infusion 500 mL/hr, INTRAVENOUS, Administer over 1 Hours, ONCE, 1 dose, On Pau 09/14/23 at 0800, Over 1 hour. New Bag/Syringe/Bottle 09/14/2023 7:50 AM EDT 500 mL/hr 500 mL/hr FOR RECORDS PERTAINING TO PATIENTS WHO ARE OR HAVE BEEN ENROLLED IN A CHEMICAL DEPENDENCY/SUBSTANCEABUSE PROGRAM, SOME INFORMATION MAY BE OMITTED. This clinical summary was aggregated from multiple sources. Caution should be exercised in using it in the provision of clinical care. This summary normalizes information from multiple sources, and as a consequence, information in this document may materially change the coding, format and clinical context of patient data. In addition, data may be omitted in some cases. CLINICAL DECISIONS SHOULD BE BASED ON THE PRIMARY CLINICAL RECORDS. [facility]. provides no warranty or guarantee of the accuracy or completeness of information in this document.
--- NOTE | 2025-06-27 18:25 | RAD_ITS ---
PROCEDURE: CHEST 1 VIEW (PORTABLE) 06/27/2025 REASON FOR EXAM: SYNCOPE, COUGH TECHNIQUE: Frontal view of the chest. COMPARISON: 03/05/2024 FINDINGS: Hardware: Right-sided MediPort unchanged. Heart: The heart size is normal. Lungs: The lungs are clear. No pneumothorax or pleural effusion. Bones: The bones are unremarkable. RAD/Chest 1 View (Portable) IMPRESSION: No Acute Findings. Reading [facility]
[2025-06-27 18:33] LABS: Troponin T High Sensitivity 6 ng/L (<=14)
[2025-06-27 18:35] VITALS: BP 128/77; PULSE 77; RESP 16; TEMP 36.6; O2SAT 98
[2025-06-27 18:35] LABS: Anion Gap 12 (7-18); BUN 12 mg/dL (4-19); BUN/Creat Ratio 9.5 RATIO (10-20); Calcium,Total 8.8 mg/dL (7.6-11.0); Carbon Dioxide 16.9 mmol/L (20.0-29.0); Chloride 110 mmol/L (96-106); Estimated Creatinine Clearance 50.65 ml/min (50-250); Glucose 131 mg/dL (70-99); Hematocrit 34.4 % (37-47); Hemoglobin 11.3 g/dL (12.0-15.0); Immature Granulocytes Count 0.010 X10^3/uL (0.0-0.0); Mean Corp Hgb Conc 32.8 g/dL (32-36); Mean Corpuscular Volume 93.2 fL (81-99); Mean Platelet Vol. 9.4 fl (6.2-12.0); NRBC Flagged by Analyzer 0 % (0-5); POSITIVE DIFFERENTIAL YES; Platelet Count 181 K/mm3 (150-450); Potassium 3.7 mmol/L (3.5-5.1); RBC Distribution Width CV 12.9 % (11.6-14.6); RBC Distribution Width SD 44.3 fl (35.1-43.9); Red Blood Count 3.69 M/mm3 (4.2-5.4); White Blood Count 4.1 K/mm3 (4.4-11.0)
[2025-06-27 19:00] VITALS: BP 140/64; PULSE 71; RESP 16; TEMP 36.6; O2SAT 97
[2025-06-27 19:27] LABS: Mucous, Urine 0 SEEN /hpf (<or=2+)
[2025-06-27 19:30] LABS: Color, Urine Yellow (Yellow); Glucose, Dipstick Normal (Normal); Ketone-Dipstick Negative (Negative); Leukocyte Esterase-Dipstick 25 /ul (Negative); Nitrite-Dipstick Negative (Negative); Occult Blood-Urine 150 /ul (Negative); Protein-Dipstick 30 mg/dl (Negative); Specific Gravity, Urine 1.025 (1.002-1.030); Urine Bilirubin Dipstick Negative (Negative)
[2025-06-27 20:00] VITALS: BP 145/73; PULSE 71; RESP 18; TEMP 37; O2SAT 97
[2025-06-27 20:32] LABS: Squamous Epithelial Cells - UA 5-10 SEEN /hpf (5-10)
[2025-06-27 20:33] LABS: Red Blood Cells-Urine 0-5 SEEN /hpf (0-5)
[2025-06-27 21:00] VITALS: BP 148/93; PULSE 76; RESP 23; O2SAT 97
[2025-06-27 21:14] VITALS: BP 148/93; PULSE 76; RESP 23; TEMP 36.6; O2SAT 97
== END 2025-06-27 21:30 | disposition home or self-care (01) ==
PROVIDERS: Emergency Provider Emergency Medicine; PCP Pediatrics; Visit Provider Emergency Medicine
DX: E86.0 Dehydration (principal); J44.9 Chronic obstructive pulmonary disease, unspecified; R55 Syncope and collapse; D64.9 Anemia, unspecified; J11.1 Influenza due to unidentified influenza virus with other respiratory manifestations; B97.4 Respiratory syncytial virus as the cause of diseases classified elsewhere; W19.XXXA Unspecified fall, initial encounter; Z85.72 Personal history of non-Hodgkin lymphomas; Z85.118 Personal history of other malignant neoplasm of bronchus and lung; Z87.891 Personal history of nicotine dependence
CPT/HCPCS: 70450; 71045; 80048; 81001; 84484; 85025; 87631; 93005; 96361; 96374; 99285; A4216; J2405